=== PATIENT | female | born 1950 | race Caucasian/White ===

== ENCOUNTER 2019-04-03 14:13 | Outpatient (CLI) | payer MEDICARE, SELFPAY ==
--- NOTE | 2019-04-03 14:20 | XR_ITS ---
WS: [id number] CERVICAL SPINE 3 VIEWS HISTORY: CERVICAL STENOSIS COMPARISON: None available. C3-4 anterolisthesis by less than 2 mm. C6 and C7 are not well visualized due to overlying shoulders. Asymmetry of the lateral masses is probably due to rotation of the patient's head and neck. No fract ures are identified. C1 lateral masses are displaced to the LEFT by 5.3 mm. Mild narrowing of the disc spaces. Soft tissues are normal. XR/XR cervical spine 3V* [id number] IMPRESSION: 1. Less than 2 mm anterolisthesis of C3 and C4. The lower cervical vertebrae a re not well seen due to overlying soft tissue. 2. Asymmetry of the lateral masses. C1 lateral masses displaced to the LEFT by 5.3 mm. Probably due to rotation and scoliosis. No fractures.
--- NOTE | 2019-04-03 14:21 | XR_ITS ---
WS: [id number] LEFT SHOULDER: 2 VIEW(S) TECHNIQUE: Internal and external rotation. HISTORY: LEFT SHOULDER PAIN COMPARISON: None available. Mild narrowing of the AC joint. No fractures or dislocation. Glenohumeral and AC joints are unremarkable. Partial calcification aortic arch. XR/XR shoulder LT min 2V* [id number] IMPRESSION: Mild AC joint arthritis.
== END 2019-04-03 14:14 | disposition home or self-care (01) ==
PROVIDERS: Family Provider Family Medicine; PCP Registered Nurse; Visit Provider Registered Nurse
DX: M48.02 Spinal stenosis, cervical region (principal); M25.512 Pain in left shoulder; M19.012 Primary osteoarthritis, left shoulder
CPT/HCPCS: 72040; 73030

== ENCOUNTER 2019-04-15 08:39 | Outpatient (CLI) | payer MEDICARE, SELFPAY ==
--- NOTE | 2019-04-15 08:50 | CT_ITS ---
WS: [id number] CT CERVICAL SPINE TECHNIQUE: Noncontrast CT of the cervical spine with coronal and sagittal reformatted images. CLINICAL INFORMATION: CERVICAL STENOSIS OF SPINAL CANAL,ABNORMAL XRAY OF CERVICAL COMPARISON: None. DLP: 1689.[address] scans at [facility] use at least one of these dose optimization techniques: automat ed exposure control; mA and/or kV adjustment per patient size (includes targeted exams where dose is matched to clinical indication); or iterative reconstruction. FINDINGS: Straightening of the normal cervical lordosis. Mild spondylitic changes. Normal C1-C2 articulation. D isc space narrowing worse at C5-C6 and C6-C7. C2-C3: Small central disc protrusion. Foramen are patent. Mild central canal stenosis. C3-C4: Disc osteophyte complex with endplate ridging. Mild central canal stenosis. Mild right greater than left foraminal narrowing. Mild facet arthropathy. C4-C5: Disc osteophyte complex with endplate ridging. Mild central canal stenosis. Mild right and no significant left foraminal narrowing. Moderate facet arthropathy. C5-C6: Disc osteophyte complex with endplate ridging. Moderate left greater than right bony foraminal narrowing. Mild facet arthropathy and uncovertebral joint hypertrophy. Spinal canal is patent. C6-C7: Disc osteophyte complex with endplate ridging. Moderate left and mild right foraminal narrowin g. Mild central canal stenosis. C7-T1: No significant disc bulging. Spinal canal and foramen are patent. Visualized posterior nasopharynx: Normal. Prevertebral soft tissues: Normal. CT/CT cervical spin wo con* [id number] IMPRESSION: 1. Straightening of the normal cervical lordosis with mild spondylitic changes . 2. Mild central canal stenosis C3-C4, C4-C5, C5- C6, and C6-C7 due to disc ost eophyte complexes. 3. Multilevel moderate foraminal narrowing worse at right C3-C4, right C4-C5, bilateral C5-C6 worse in the left, and left C6-C7.
== END 2019-04-15 08:40 | disposition home or self-care (01) ==
LOC: RADWPI 08:45
PROVIDERS: Family Provider Family Medicine; PCP Registered Nurse; Visit Provider Registered Nurse
DX: M48.02 Spinal stenosis, cervical region (principal); M25.512 Pain in left shoulder; R93.7 Abnormal findings on diagnostic imaging of other parts of musculoskeletal system; M47.892 Other spondylosis, cervical region
CPT/HCPCS: 72125

== ENCOUNTER → 2019-08-28 09:53 | Outpatient (BNVA) | payer MEDICARE, SELFPAY | PROVIDERS: Family Provider Family Medicine; PCP Family Medicine; Referring Provider Registered Nurse; Visit Provider Anesthesiology Pain Medicine | DX: M54.2 Cervicalgia (principal); M54.41 Lumbago with sciatica, right side; M54.42 Lumbago with sciatica, left side; M54.9 Dorsalgia, unspecified; F31.9 Bipolar disorder, unspecified; F41.0 Panic disorder [episodic paroxysmal anxiety]; F41.9 Anxiety disorder, unspecified | CPT/HCPCS: 99204 ==

== ENCOUNTER 2020-11-08 13:02 | Emergency (ER) | payer MEDICARE, SELFPAY ==
[2020-11-08 13:27] VITALS: BP 140/79; PULSE 100; RESP 16; TEMP 37.2; O2SAT 100; BMI 29.2
--- NOTE | 2020-11-08 13:29 | ECG_ITS ---
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 Measurements Intervals [place] Rate: 92 P: 89 [place]: 141 QRS: 40 QRSD: 77 T: 75 QT: 339 QTc: 421 Interpretive Statements SINUS RHYTHM POSSIBLE RIGHT VENTRICULAR CONDUCTION DELAY [RSR (QR) IN V1/V2] Compared to ECG 02/07/2019 14:24:01 No significant changes Electronically Signed On 11-08-2020 20:10:38 CDT by Marcy Davalos M.D. [email or web address] at [facility] [email or web address]/NU/[id number] f
--- NOTE | 2020-11-08 13:29 | XR_ITS ---
WS: [id number] Exam: XR chest 1V portable [id number] Date/Time of Exam: 11/08/2020 1:39 PM Reason For Exam: wheezing Comparison 02/06/2019. Findings: The lungs are clear and fully expanded. Costophrenic angles are sharp. No infiltrates. Bronchovascula r relief appears normal. Cardiac silhouette is unremarkable. Bony elements are intact. XR/XR chest 1V portable [id number] IMPRESSION: Unremarkable chest radiograph.
--- NOTE | 2020-11-08 13:45 | PC.NURSE ---
THIS NURSE ENTERED THE PATIENT ROOM TO START AN IV AND DO A COVID SWAB AND THE PATIENT REFUSED. PATIENT STATED THAT SHE DOES NOT WANT AN IV OR TO BE TESTED BECAUSE SHE HASN'T LEFT THE HOUSE SINCE MARCH. DR. WOO NOTIFIED.
[2020-11-08 13:52] VITALS: BP 140/79; PULSE 100; TEMP 37.2
--- NOTE | 2020-11-08 14:17 | PC.NURSE ---
PATIENT REFUSED IV, THIS NURSE DID A LAB DRAW USING STRAIGHT STICK METHOD. PATIENT IN BED WITH NO FURTHER NEEDS AT THIS TIME.
[2020-11-08 14:29] VITALS: BP 142/81; PULSE 92; O2SAT 100
[2020-11-08 14:44] LABS: Troponin(5th) Baseline 10 ng/L (0-10)
--- NOTE | 2020-11-08 14:48 | W.ED.GENADLT ---
HPI - General Adult General: Chief complaint: General Medical Stated complaint: SOB, PAIN FROM WAIST DOWN BOTH LEGS Time Seen by Provider: 11/08/20 13:12 History of Present Illness: HPI narrative: Patient is a 70-year-old female with history of bipolar disease, COPD, anxiety who presents the emergency room with complaints of shortness of breath and cough x2 days. Patient lives at home by herself with her cats. Patient also reports of pain from the waist down. Denies n/v/f/cp/abdpain/dysuria/hematuria/diarrhea/hematochezia. At home, patient uses 4 L of nasal cannula for COPD. Patient uses Symbicort and Ventolin at home however over the last 2 days has reported increasing use of both without any relief of symptoms. Patient denies any recent contact with Covid positive patients. Patient denies any recent travel or surgery. No history of DVT/PE. Patient presents for worsening shortness of breath and cough. Has not had her Covid vaccine yet. Onset:2 days ago Duration:ongoing Location:home Severity:mild Review of Systems Narrative: Constitutional: No fever, no chills. HEENT: No vision changes CV: No chest pain, no palpitations PULM: +cough, +dyspnea. GI: No abdominal pain, no N/V/D. : No dysuria MSKEL: No muscle pain SKIN: No new rashes, no lesions. NEURO: No headache, no focal weakness. HEME: No visible bruises PSYCH: Normal mood [facility] PFSH: Medical History (Updated 11/08/20 @ 15:17 by Lisha Harris MD) COPD (chronic obstructive pulmonary disease) Panic anxiety syndrome Surgical History History of appendectomy History of cholecystectomy History of hysterectomy Hx of tonsillectomy Social History Smoking and tobacco status: former smoker Quit status (tobacco): has quit using tobacco Year quit tobacco: 2014 - 1PPD x 40 Years Alcohol intake: never Lives independently: Yes Household members: none Current occupational status: disabled Pets and animals: Yes Pets & animals: dog(s) History of recent travel: No Current gender identity: Female Physical Exam Narrative: EXAM NARRATIVE: Head: Atraumatic Eyes: PERRL, conjunctiva without injection ENT: Mucous membrane moist NECK: Supple, ROM intact LUNGS: Wheezing b/l in the lung tirado CV: RRR ABDOMEN: Soft, nontender in all quadrants EXTREMITY: Normal ROM SKIN: No rash or erythema NEURO: Awake and alert, no focal motor deficits PSYCH: Normal mood and affect Course Vital Signs: Vital signs: Vital Signs Temperature 98.9 F 11/08/20 13:52 Pulse Rate 88 11/08/20 15:27 Respiratory Rate 18 11/08/20 15:27 Blood Pressure 142/81 11/08/20 14:29 Pulse Oximetry 99 11/08/20 15:51 MDM - General Adult MDM Narrative: Medical decision making narrative: 70-year-old female with history of COPD on 4 L nasal cannula who presents emergency room with worsening shortness of breath and cough x2 days. On exam patient is hemodynamically stable. Wheezing noted in lung tirado bilaterally. There is no increased work of breathing. No signs of volume overload in the lower extremities. EKG showing regular sinus rhythm at HT of 92. Normal axis. No ST elevations/depressions to suggest coronary occlusion. Normal AK, QRS, QT intervals. I have offered patient a Covid swab today however patient declined. Work-up today including troponin, EKG, chest x-ray are within normal limit. Patient received DuoNeb/ prednisone in the emergency room and request to go home. I explained to patient that she still has some shortness of breath and it would be worthwhile observing her. However patient declines admission and elects to go home at this time. Patient verbalizes understanding of the risk today including acute respiratory decompensation which can lead to . In addition, patient complains of bilateral back and flank pain. Performed bedside ultrasound which did not show any enlarged or in order. I have offered CT scan for patient's waist pain however at this time, patient states that she would like to go home. Patient understands that she will need to come back to the emergency room should she experience any worsening symptoms. This present time, patient is AAOx3 fully conversant, and believe patient is making coherent decision for herself. Continues to decline Covid test today. Disposition: Discharge. I have given patient strict return precaution for any worsening respiratory symptoms including fever/chills, cough, worsening shortness of breath, any new or concerning complaints. Lab Data: Labs: Lab Results 11/08/20 11/08/2011/08/21 Range/Units 14:15 14:15 14:15 WBC 8.5 (4.0-10.0) 10^3/ uL RBC 4.36 (4.1-5.3) 10^6/u L Hgb 14.1 (11.5-15.3) g/dL Hct 44.2 (37.0-47.0) % MCV 101.4 H (81-99) fl MCH 32.3 (28.0-34.0) pg MCHC 31.9 (30.0-36.0) g/dL RDW 13.1 (12.1-15.1) % Plt Count 335 (130-400) 10^3/c mm MPV 10.0 (7.4-10.4) fL Neut % (Auto) 65.3 % Lymph % (Auto) 17.2 % [place] % (Auto) 10.4 % Eos % (Auto) 5.8 % Baso % (Auto) 0.7 % Neut # (Auto) 5.52 (1.8-7.7) 10^3/u L Lymph # (Auto) 1.5 (0.8-4.8) 10^3/u L [place] # (Auto) 0.9 (0.2-0.9) 10^3/u L Eos # (Auto) 0.5 (0.0-0.8) 10^3/u L Baso # (Auto) 0.1 (0.0-0.1) 10^3/u L Nucleated RBC % (a uto) 0 % Nucleated RBCs # 0.0 /100WBC Sodium 142 (136-145) mmol/L Potassium 4.5 (3.5-5.1) mmol/L Chloride 100 (98-107) mmol/L Carbon Dioxide 35 H (22-29) mmol/L Anion Gap 11.5 (5-19) BUN 10 (8-23) mg/dL Creatinine 0.5 (0.5-0.9) mg/dL GFR Calculation Not Reportable Glucose 104 (65-115) mg/dL Calculated Osmolal ity 293 (285-295) mOsm/k g Calcium 9.3 (8.5-10.5) mg/dL Total Bilirubin 0.6 (0.15-1.2) mg/dL AST 20 (0-32) U/L ALT 14 (0-33) U/L Alkaline Phosphata se 93 (35-105) IU/L Troponin T Baselin e 10 (0-10) ng/L NT-Pro-B Natriuret Pep 59 (0-125) pg/mL Total Protein 6.5 L (6.6-8.7) g/dL Albumin 4.2 (3.5-5.2) g/dL Globulin 2.3 (1.3-4.6) g/dL Imaging Data^: Other Imaging: Radiologist's impression: [employer] SolutionsC[place] [id number] [facility], [place] [address]MZbb ReportSigned Patient: Socorro Montes De Oca #: [id number]: 9Acct#:[id number]/Sex: 70 / FADM Date: 11/08/20Loc: ERRoom/Bed:Attending Dr: Ordering Provider/Ordering MD: Lisha Harris MD Date of Service: 11/08/20 Procedure(s): XR chest 1V portable [id number] Accession Number(s): [id number] Report Number: [id number] WS: [id number] Exam: XR chest 1V portable [id number] Date/Time of Exam: 11/08/2020 1:39 PM Reason For Exam: wheezing Comparison 02/06/2019. Findings: The lungs are clear and fully expanded. Costophrenic angles are sharp. No infiltrates. Bronchovascular relief appears normal. Cardiac silhouette is unremarkable. Bony elements are intact. XR/XR chest 1V portable [id number] IMPRESSION: Unremarkable chest radiograph. Dictated By:Salazarigned By:Salazarigned Date/Time:11/08/20 1342DD/ 1341 Discharge Plan Discharge Patient Disposition: Home Clinical Impression: COPD (chronic obstructive pulmonary disease), Cough, Shortness of breath Condition: Stable Prescriptions: No Action budesonide-formoterol [Symbicort] 160-4.5 mcg/actuation HFA aerosol inhaler 2 puff INHALATION BID RF: 0 albuterol sulfate [Ventolin HFA] 90 mcg/actuation HFA aerosol inhaler 2 puff INHALATION Q6H PRNRF: 0 levothyroxine 125 mcg capsule 125 mcg PO DAILY RF: 0 Discharge Orders: Discharge ED (Routine); Ordered 11/08/20 Ordered By: Lisha Harris Referrals: Carson Murray DO [Primary Care Provider] - Discharge Diet: Advance as tolerated Discharge Activity: Resume usual activity Patient Instructions: COPD Activity Restrictions/Additional Instructions: Come back to the emergency room if your symptoms worsen, having worsening shortness of breath, wheezing, fever or chills, or any new or concerning issues. Coding Level of Care Code ED Forensic Analyst for Ji Melgar
[2020-11-08 14:53] LABS: Alanine Aminotransferase 14 U/L (0-33); Albumin Level 4.2 g/dL (3.5-5.2); Alkaline Phosphatase 93 IU/L (35-105); Anion Gap 11.5 (5-19); Aspartate Amino Transferase 20 U/L (0-32); Blood Urea Nitrogen 10 mg/dL (8-23); Calcium 9.3 mg/dL (8.5-10.5); Carbon Dioxide 35 mmol/L (22-29); Chloride 100 mmol/L (98-107); Creatinine Clr Calc Pharmacy 54.7049; Globulin 2.3 g/dL (1.3-4.6); Glucose 104 mg/dL (65-115); NT Pro B Type Natriuretic Pept 59 pg/mL (0-125); Osmolality Calculated 293 mOsm/kg (285-295); Potassium 4.5 mmol/L (3.5-5.1); Sodium 142 mmol/L (136-145); Total Bilirubin 0.6 mg/dL (0.15-1.2); Total Protein 6.5 g/dL (6.6-8.7)
[2020-11-08 15:00] LABS: Basophils # 0.1 10^3/uL (0.0-0.1); Basophils % 0.7 %; Eosinophils # 0.5 10^3/uL (0.0-0.8); Eosinophils % 5.8 %; Hematocrit 44.2 % (37.0-47.0); Hemoglobin 14.1 g/dL (11.5-15.3); Lymphocytes # 1.5 10^3/uL (0.8-4.8); Lymphocytes % 17.2 %; Mean Corpuscular HGB Conc 31.9 g/dL (30.0-36.0); Mean Corpuscular Hemoglobin 32.3 pg (28.0-34.0); Mean Corpuscular Volume 101.4 fl (81-99); Monocytes # 0.9 10^3/uL (0.2-0.9); Monocytes % 10.4 %; Neutrophils # 5.52 10^3/uL (1.8-7.7); Neutrophils % 65.3 %; Nucleated Red Blood Cells % 0 %; Platelet Count 335 10^3/cmm (130-400); Red Blood Count 4.36 10^6/uL (4.1-5.3); Red Cell Distribution Width 13.1 % (12.1-15.1); White Blood Count 8.5 10^3/uL (4.0-10.0)
[2020-11-08] MEDS: predniSONE 20 mg Tablet 60 MG PO (15:15)
[2020-11-08] MEDS: ipratropium-albuterol 3 mL Neb 6 ML INHALATION (15:25)
[2020-11-08 15:27] VITALS: PULSE 88; RESP 18; O2SAT 100
[2020-11-08 15:51] VITALS: O2SAT 99
--- NOTE | 2020-11-08 16:00 | PC.NURSE ---
PATIENT WAS SEEN TODAY BY DR. WOO. PATIENT WAS GIVEN SEVERAL TREATMENT OPTIONS BUT REFUSED MULTIPLE ORDERS GIVEN. PATIENT REFUSED IV START, COVID SWAB, AND CT SCAN. PATIENT IS OF SOUND MIND AND WISHED TO GO HOME, WHERE SHE LIVES ALONE, INSTEAD OF SEEKING FURTHER TREATMENT FOR THE PAIN IN HER LEGS. PATIENT AMBULATED TO EXIT IN NO APPARENT DISTRESS WITH O2 NC ON TO TAXI.
== END 2020-11-08 15:52 | disposition home or self-care (01) ==
PROVIDERS: Emergency Provider Emergency Medicine; PCP Family Medicine
DX: J44.9 Chronic obstructive pulmonary disease, unspecified (principal); Z87.891 Personal history of nicotine dependence; Z99.81 Dependence on supplemental oxygen
CPT/HCPCS: 71045; 80053; 83880; 84484; 85025; 93005; 94640; 99283; J7512

== ENCOUNTER 2020-12-30 07:56 | Emergency (ER) | payer MEDICARE, SELFPAY ==
--- NOTE | 2020-12-30 08:01 | XR_ITS ---
WS: [id number] XR chest 1V portable [id number] REASON FOR EXAM: dyspnea FINDINGS: Chest unchanged compared to 11/08/2020. The heart and mediastinum are within normal limits. Calcified granulomatous disease in both hemithoraces. No active pulmonary parenchymal pleural disease. Mild degenerative changes in the mid and lower thoracic spine. XR/XR chest 1V portable [id number] IMPRESSION: No acute chest abnormality.
[2020-12-30 08:02] VITALS: BP 168/116; PULSE 110; RESP 21; TEMP 36.9; O2SAT 98; BMI 29.2
--- NOTE | 2020-12-30 08:03 | W.ED.SOB ---
HPI - SOB/Dyspnea General: Chief Complaint: Shortness of Breath/Dyspnea Stated Complaint: SOB, ANXIOUS Time Seen by Provider: 12/30/20 08:00 Source: patient and EMS Mode of arrival: EMS Limitations: other (dyspnea) History of Present Illness: HPI Narrative: Patient woke up this morning with increased shortness of breath and wheezing. Patient states she wears nasal cannula at 4 L/min normally. She states she had increasing wheezing she did take Ventolin inhaler this morning. According to paramedics her oxygen saturation was 96% on home O2. Patient refused IV prior to arrival. No meds were given by EMS prior to arrival. Possible history includes COPD. She is allergic to Zyprexa. She claims she quit smoking in 2014. MD elicited complaint: shortness of breath and cough Pertinent past history: COPD and asthma Onset (ago): hour(s) (1) Context: anxiety Timing: constant Severity: moderate Exacerbating factors: nothing Relieving factors: nothing Known history of: COPD and asthma Associated symptoms: Reports cough; Deny abdominal pain, chest congestion, chest pain, diaphoresis, dizziness, fever(s) or palpitations Treatment prior to arrival: oxygen Related Data: Home oxygen amount: 4 liters Review of Systems Const: Denies: fever(s), fatigue or diaphoresis Eyes: Denies: change in vision ENMT: Denies: throat pain Card: Denies: chest pain or palpitations Resp: Reports: dyspnea, non-productive cough and wheezing; Denies: chest congestion GI: Denies: abdominal pain : Denies: flank pain Musc: Denies: neck pain or back pain Skin/Breast: Denies: rash or pruritus Neuro: Denies: dizziness Psych: Reports: anxiety Arnav/Lymph: Denies: enlarged lymph nodes PFSH ED PFSH: Medical History (Updated 12/30/20 @ 08:07 by Marco A Christopher MD) COPD (chronic obstructive pulmonary disease) Panic anxiety syndrome Surgical History History of appendectomy History of cholecystectomy History of hysterectomy Hx of tonsillectomy Social History Smoking and tobacco status: former smoker Quit status (tobacco): has quit using tobacco Year quit tobacco: 2015 - 1PPD x 40 Years Alcohol intake: never Lives independently: Yes Household members: none Current occupational status: disabled Pets and animals: Yes Pets & animals: dog(s) History of recent travel: No Current gender identity: Female Physical Exam Const: COMMON NORMALS: no acute distress, patient oriented x3, no limitations and well nourished EXAM LIMITATIONS: no altered mental status GENERAL APPEARANCE: cooperative and anxious HENMT: COMMON NORMALS: normocephalic and atraumatic HEAD & SCALP: normocephalic and atraumatic FACE & SINUS: normal facial exam Eye: COMMON NORMALS: EOMs intact bilaterally Neck/C-Spine: COMMON NORMALS: full ROM, no lymphadenopathy, supple, no meningeal signs and no JVD GENERAL: Yes normal visual inspection Lymph: LYMPHATIC: no lymphadenopathy noted Chest: COMMONS NORMALS: normal inspection of the chest and normal palpation of entire chest wall CHEST: No Ecchymosis present and No rash Resp: EFFORT & INSPECTION: Yes symmetric chest movement, Yes tachypneic and Yes respiratory distress AUSCULTATION: wheezes Cardio: COMMON NORMALS: no JVD, regular rate, regular rhythm and Peripheral pulses 2+ throughout JUGULAR VENOUS DISTENTION: no JVD RATE: regular rate RHYTHM: regular rhythm PERIPHERAL PULSES: Peripheral pulses 2+ throughout GI: COMMON NORMALS: Normal to inspection, nondistended, normoactive bowel sounds present and non-tender : COMMON NORMALS: Yes no CVA tenderness BLADDER/KIDNEY EXAM: Yes no CVA tenderness Back/Pelvis: COMMON NORMALS: no CVA tenderness Extremity: COMMON NORMALS: normal to inspection, full ROM and capillary refill normal Neuro: COMMON NORMALS: patient oriented x3, CN's II-XII intact bilaterally, no focal motor deficits and no sensory deficits noted MENINGEAL SIGNS: Yes no meningeal signs Psych: COMMON NORMALS: mental status grossly normal and Normal thought process present THOUGHT PROCESS: Normal thought process present Skin: COMMON NORMALS: no rashes or lesions noted and no wounds GENERAL SKIN EXAM: no rashes or lesions noted Course Vital Signs: Vital signs: Vital Signs Temperature 98.5 F 12/30/20 08:02 Pulse Rate 107 H 12/30/20 08:21 Respiratory Rate 19 H 12/30/20 08:20 Blood Pressure 156/107 12/30/20 08:20 Pulse Oximetry 98 12/30/20 08:20 MDM - SOB/Dyspnea MDM Narrative: Medical decision making narrative: 0845: Patient much improved. Patient has a rare expiratory wheeze bilaterally. Her oxygen saturation is 98% on 2 L by nasal cannula. Will give 1 more DuoNeb prior to discharge. Imaging Data^: CXR: Attestation: I personally reviewed and interpreted this imaging study as follows: My impression: Atelectasis and left base. Consistent with COPD appearance. No change from previous chest x-ray in October. Discharge Plan Discharge Clinical Impression: Acute exacerbation of chronic obstructive airways disease Condition: Stable Prescriptions: No Action budesonide-formoterol [Symbicort] 160-4.5 mcg/actuation HFA aerosol inhaler 2 puff INHALATION BID RF: 0 albuterol sulfate [Ventolin HFA] 90 mcg/actuation HFA aerosol inhaler 2 puff INHALATION Q6H PRNRF: 0 levothyroxine 125 mcg capsule 125 mcg PO DAILY RF: 0 Referrals: Carson Murray DO [Primary Care Provider] - Coding Level of Care Code ED Civil Engineering Professional for Chg Fwd Exam Comprehensive
[2020-12-30] MEDS: ipratropium-albuterol 3 mL Neb INHALATION ×2 (08:14→08:56)
[2020-12-30 08:16] VITALS: PULSE 111; RESP 22; O2SAT 99
[2020-12-30 08:20] VITALS: BP 156/107; PULSE 106; RESP 19; O2SAT 98
[2020-12-30 08:21] VITALS: PULSE 107
[2020-12-30 08:56] VITALS: PULSE 107; RESP 22; O2SAT 99
[2020-12-30 08:58] VITALS: PULSE 106
== END 2020-12-30 09:31 | disposition home or self-care (01) ==
PROVIDERS: Emergency Provider Family Medicine; PCP Family Medicine
DX: J44.1 Chronic obstructive pulmonary disease with (acute) exacerbation (principal); Z87.891 Personal history of nicotine dependence
CPT/HCPCS: 71045; 94640; 96374; 99284; J2930

== ENCOUNTER 2021-09-01 08:19 | Emergency (ER) | payer MEDICARE, SELFPAY ==
--- NOTE | 2021-09-01 08:25 | ECG_ITS ---
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 Measurements Intervals [place] Rate: 88 P: 84 IN: 146 QRS: 81 QRSD: 79 T: 83 QT: 372 QTc: 451 Interpretive Statements SINUS RHYTHM POSSIBLE RIGHT VENTRICULAR CONDUCTION DELAY [RSR (QR) IN V1/V2] Compared to ECG 11/08/2020 13:47:07 No significant changes Electronically Signed On 09-02-2021 5:44:48 CDT by Giorgi Justin M.D. [id number]
--- NOTE | 2021-09-01 08:25 | XR_ITS ---
WS: [id number] Portable AP upright chest, 09/01/2021 Clinical Data: sob Comparison: Portable chest, 12/30/2020. Findings: No nodules, masses or effusions are seen. The heart is normal. The pulmonary vascularity is not increased. No pneumonia or pneumothorax is seen. The aortic arch shows mild calcification. Monit or leads are on the chest wall. XR/XR chest 1V portable [id number] Impression: Atherosclerosis.
--- NOTE | 2021-09-01 08:29 | W.ED.SOB ---
HPI - SOB/Dyspnea General: Chief Complaint: Shortness of Breath/Dyspnea Stated Complaint: SOB Time Seen by Provider: 09/01/21 08:20 History of Present Illness: HPI Narrative: 71-year-old female presents with shortness of breath. Patient has chronic shortness of breath/COPD. She reports that its been getting worse for at least 3 to 4 weeks. Patient presents today because it seemed like it was worse when she ambulated to the restroom. Patient is on home oxygen. Patient reports that she has not seen her doctor in at least a year. EMS reports that she is very wheezy and tight and they gave her an albuterol in route and saw significant improvement. Patient denies any fever, chills. She does have some minor chest tightness. Associated symptoms: Reports chest pain (Tightness); Deny abdominal pain, dizziness, fever(s), lightheadedness, nausea, syncope or vomiting Review of Systems Const: Denies: fever(s) or chills Eyes: Denies: change in vision ENMT: Denies: throat pain Card: Reports: chest pain (Tightness); Denies: lightheadedness or syncope Resp: Reports: dyspnea, non-productive cough and wheezing GI: Denies: abdominal pain, nausea or vomiting : Denies: flank pain or difficulty voiding Skin/Breast: Denies: rash Neuro: Denies: headache(s) or dizziness Psych: Denies: anxiety or depression [facility] ED PFSH: Medical History (Updated 01/07/21 @ 00:01 by ) COPD (chronic obstructive pulmonary disease) Panic anxiety syndrome Surgical History History of appendectomy History of cholecystectomy History of hysterectomy Hx of tonsillectomy Social History Smoking and tobacco status: former smoker Quit status (tobacco): has quit using tobacco Year quit tobacco: 2014 - 1PPD x 40 Years Alcohol intake: never Lives independently: Yes Household members: none Current occupational status: disabled Pets and animals: Yes Pets & animals: dog(s) History of recent travel: No Current gender identity: Female Physical Exam Const: COMMON NORMALS: no acute distress and patient oriented x3 HENMT: COMMON NORMALS: not normocephalic and head/scalp not atraumatic HEAD & SCALP: not normocephalic and not atraumatic Eye: GENERAL EYE: appearance normal, both eyes and all related structures Neck/C-Spine: COMMON NORMALS: full ROM and supple Resp: EFFORT & INSPECTION: Yes able to speak in complete sentences and No respiratory distress AUSCULTATION: wheezes (Diffuse) Cardio: COMMON NORMALS: regular rhythm RATE: tachycardic RHYTHM: regular rhythm GI: COMMON NORMALS: Soft to palpation PALPATION: Yes Soft to palpation, No Tenderness to palpation present (GI) and No Guarding due to palpation present (GI) Extremity: COMMON NORMALS: normal to inspection and capillary refill normal Neuro: COMMON NORMALS: patient oriented x3, CN's II-XII intact bilaterally and no focal motor deficits Psych: COMMON NORMALS: mental status grossly normal and cooperative Skin: COMMON NORMALS: no rashes or lesions noted GENERAL SKIN EXAM: no rashes or lesions noted Course Vital Signs: Vital signs: Vital Signs Pulse Rate 79 09/01/21 09:52 Respiratory Rate 17 09/01/21 09:52 Blood Pressure 161/78 09/01/21 09:52 Pulse Oximetry 94 09/01/21 10:06 MDM - SOB/Dyspnea Medical Decision Making Patient with COPD exacerbation. Patient does not follow with a primary care provider on a consistent basis and has uncontrolled COPD. Patient complained about unable to ambulate due to shortness of breath. Respiratory ambulated patient and her O2 saturations while ambulating was 94% on her baseline home oxygen. Patient's baseline home oxygen of 6 L. I had her turn down to 4 L where she remained in the upper 90s throughout her stay. She had some mild wheezing that improved with her DuoNeb. Started on azithromycin and prednisone. Patient stable and discharged home Lab Data : 09/01/21 08:31 09/01/21 08:31 Labs/Radiology: Radiology Impressions Chest X-Ray 09/01/21 08:25 Impression: Atherosclerosis. Laboratory Results WBC 7.2 10^3/uL (4.0-10.0) 09/01/21 08:31 RBC 4.18 10^6/uL (4.1-5.3) 09/01/21 08:31 Hgb 13.3 g/dL (11.5-15.3) 09/01/21 08:31 Hct 40.6 % (37.0-47.0) 09/01/21 08:31 MCV 97.1 fl (81-99) 09/01/21 08:31 MCH 31.8 pg (28.0-34.0) 09/01/21 08:31 MCHC 32.8 g/dL (30.0-36.0) 09/01/21 08:31 RDW 13.6 % (12.1-15.1) 09/01/21 08:31 Plt Count 335 10^3/cmm (130-400) 09/01/21 08:31 MPV 10.1 fL (7.4-10.4) 09/01/21 08:31 Neut % (Auto) 50.9 % 09/01/21 08:31 Lymph % (Auto) 25.1 % 09/01/21 08:31 [place] % (Auto) 13.3 % 09/01/21 08:31 Eos % (Auto) 9.6 % 09/01/21 08:31 Baso % (Auto) 0.8 % 09/01/21 08:31 Neut # (Auto) 3.64 10^3/uL (1.8-7.7) 09/01/21 08:31 Lymph # (Auto) 1.8 10^3/uL (0.8-4.8) 09/01/21 08:31 [place] # (Auto) 1.0 10^3/uL (0.2-0.9) H 09/01/21 08:31 Eos # (Auto) 0.7 10^3/uL (0.0-0.8) 09/01/21 08:31 Baso # (Auto) 0.1 10^3/uL (0.0-0.1) 09/01/21 08:31 Nucleated RBC % (auto) 0 % 09/01/21 08: Nucleated RBCs # 0.0 /100WBC 09/01/21 08:31 Sodium 141 mmol/L (136-145) 09/01/21 08:31 Potassium 4.1 mmol/L (3.5-5.1) 09/01/21 08:31 Chloride 99 mmol/L (98-107) 09/01/21 08:31 Carbon Dioxide 34 mmol/L (22-29) H 09/01/21 08:31 Anion Gap 12.1 (5-19) 09/01/21 08:31 BUN 14 mg/dL (8-23) 09/01/21 08:31 Creatinine 0.6 mg/dL (0.5-0.9) 09/01/21 08:31 GFR Calculation Not Reportable 09/01/21 08:31 Glucose 109 mg/dL (65-115) 09/01/21 08:31 Calculated Osmolality 293 mOsm/kg (285-295) 09/01/21 08:31 Calcium 9.5 mg/dL (8.5-10.5) 09/01/21 08:31 Magnesium 2.3 mg/dL (1.7-2.3) 09/01/21 08:31 Total Bilirubin 0.6 mg/dL (0.15-1.2) 09/01/21 08:31 AST 26 U/L (0-32) 09/01/21 08:31 ALT 18 U/L (0-33) 09/01/21 08:31 Alkaline Phosphatase 68 IU/L (35-105) 09/01/21 08:31 Total Protein 7.2 g/dL (6.6-8.7) 09/01/21 08:31 Albumin 4.5 g/dL (3.5-5.2) 09/01/21 08:31 Globulin 2.7 g/dL (1.3-4.6) 09/01/21 08:31 Discharge Plan Discharge Condition: Stable Prescriptions: No Action budesonide-formoterol [Symbicort] 160-4.5 mcg/actuation HFA aerosol inhaler 2 puff INHALATION BID 0RF albuterol sulfate [Ventolin HFA] 90 mcg/actuation HFA aerosol inhaler 2 puff INHALATION Q6H PRN0RF levothyroxine 125 mcg capsule 125 mcg PO DAILY 0RF prednisone 20 mg tablet 40 mg PO DAILY 3 Days Qty: 6 1RF Rx Instructions: for inflammation Referrals: Carson Murray DO [Primary Care Provider] - Coding Level of Care Code ED Senior Structural Engineer for Chg Fwd Exam Comprehensive
[2021-09-01] MEDS: ipratropium-albuterol 3 mL Neb INHALATION (08:43)
[2021-09-01 08:45] VITALS: BP 144/105; PULSE 87; PULSE 88; RESP 18; O2SAT 97; O2SAT 99; BMI 29.2
[2021-09-01 08:45] LABS: Basophils # 0.1 10^3/uL (0.0-0.1); Basophils % 0.8 %; Eosinophils # 0.7 10^3/uL (0.0-0.8); Eosinophils % 9.6 %; Hematocrit 40.6 % (37.0-47.0); Hemoglobin 13.3 g/dL (11.5-15.3); Lymphocytes # 1.8 10^3/uL (0.8-4.8); Lymphocytes % 25.1 %; Mean Corpuscular HGB Conc 32.8 g/dL (30.0-36.0); Mean Corpuscular Hemoglobin 31.8 pg (28.0-34.0); Mean Corpuscular Volume 97.1 fl (81-99); Mean Platelet Volume 10.1 fL (7.4-10.4); Monocytes % 13.3 %; Neutrophils # 3.64 10^3/uL (1.8-7.7); Neutrophils % 50.9 %; Nucleated Red Blood Cells % 0 %; Platelet Count 335 10^3/cmm (130-400); Red Blood Count 4.18 10^6/uL (4.1-5.3); Red Cell Distribution Width 13.6 % (12.1-15.1); White Blood Count 7.2 10^3/uL (4.0-10.0)
[2021-09-01 08:50] VITALS: PULSE 90
[2021-09-01 09:00] LABS: Alanine Aminotransferase 18 U/L (0-33); Albumin Level 4.5 g/dL (3.5-5.2); Alkaline Phosphatase 68 IU/L (35-105); Anion Gap 12.1 (5-19); Aspartate Amino Transferase 26 U/L (0-32); Blood Urea Nitrogen 14 mg/dL (8-23); Calcium 9.5 mg/dL (8.5-10.5); Carbon Dioxide 34 mmol/L (22-29); Chloride 99 mmol/L (98-107); Globulin 2.7 g/dL (1.3-4.6); Glucose 109 mg/dL (65-115); Magnesium 2.3 mg/dL (1.7-2.3); Osmolality Calculated 293 mOsm/kg (285-295); Potassium 4.1 mmol/L (3.5-5.1); Sodium 141 mmol/L (136-145); Total Bilirubin 0.6 mg/dL (0.15-1.2); Total Protein 7.2 g/dL (6.6-8.7)
[2021-09-01 09:52] VITALS: BP 161/78; PULSE 79; RESP 17; O2SAT 98
--- NOTE | 2021-09-01 09:54 | PC.NURSE ---
Pt placed on continual cardiac, BP, and SpO2 monitoring upon arrival into room.
[2021-09-01 10:06] VITALS: O2SAT 94
[2021-09-01 12:00] VITALS: BP 143/69; PULSE 85; RESP 20; O2SAT 97
== END 2021-09-01 11:09 | disposition home or self-care (01) ==
PROVIDERS: Emergency Provider Student in an Organized Health Care Education/Training Program; PCP Family Medicine
DX: J44.1 Chronic obstructive pulmonary disease with (acute) exacerbation (principal)
CPT/HCPCS: 71045; 80053; 83735; 85025; 93005; 94640; 96374; 99285; J2930

== ENCOUNTER 2021-11-29 06:01 | Emergency (ER) | payer MEDICARE, SELFPAY ==
[2021-11-29 06:04] VITALS: BP 140/75; PULSE 99; RESP 23; TEMP 37.7; O2SAT 98; BMI 29.2
--- NOTE | 2021-11-29 06:04 | XR_ITS ---
WS: [id number] XR chest 1V portable [id number] REASON FOR EXAM: dyspnea/cough FINDINGS: Compared to the previous examination of 09/01/2021 there are reticular opacities in the lower right eric ng field that appear more prominent than on the previous examination. Similar findings in the left lo wer lung field. No other interval change or new finding. XR/XR chest 1V portable [id number] IMPRESSION: Findings compatible with subacute pneumonitis.
[2021-11-29 06:08] VITALS: PULSE 99; RESP 18; O2SAT 98
--- NOTE | 2021-11-29 06:10 | W.ED.SOB ---
HPI - SOB/Dyspnea General: Chief Complaint: Shortness of Breath/Dyspnea Stated Complaint: Respiratory Distress Time Seen by Provider: 11/29/21 06:04 Source: patient History of Present Illness: HPI Narrative: 71-year-old female presents emergency room complaining of shortness of breath that began in the night. She normally wears 3 and half to 4 L of oxygen. She is currently satting in the upper 90 percentile 9. She denies any recent fever sweats chills or productive cough. EMS reported she was tachypneic when they first responded to the scene. She improved significantly after 2 breathing treatments. Associated symptoms: Deny abdominal pain, chest pain, fever(s), nausea, orthopnea or vomiting Review of Systems Const: Denies: fever(s), chills, body aches, change in appetite, fatigue or malaise ENMT: Denies: throat pain, ear or mastoid pain, nasal discharge or nasal congestion Card: Denies: chest pain, edema, dyspnea on exertion or orthopnea Resp: Denies: dyspnea, productive cough or non-productive cough GI: Denies: abdominal pain, nausea, vomiting, hematemesis, coffee ground emesis, diarrhea, constipation, bloating, hematochezia or melena : Denies: flank pain, difficulty voiding, dysuria, urinary frequency or urinary urgency Skin/Breast: Denies: rash or pruritus [facility] ED PFSH: Medical History (Updated 11/29/21 @ 07:52 by Alex Romero DO) COPD (chronic obstructive pulmonary disease) Panic anxiety syndrome Surgical History History of appendectomy History of cholecystectomy History of hysterectomy Hx of tonsillectomy Social History Smoking and tobacco status: former smoker Quit status (tobacco): has quit using tobacco Year quit tobacco: 2015 - 1PPD x 40 Years Alcohol intake: never Lives independently: Yes Household members: none Current occupational status: disabled Pets and animals: Yes Pets & animals: dog(s) History of recent travel: No Current gender identity: Female Physical Exam Const: COMMON NORMALS: no acute distress GENERAL APPEARANCE: cooperative and comfortable ORIENTATION/CONSCIOUSNESS: Yes awake, Yes oriented to person, Yes oriented to place and Yes oriented to time HENMT: COMMON NORMALS: normocephalic, atraumatic and hearing grossly normal bilaterally HEAD & SCALP: normocephalic and atraumatic Resp: AUSCULTATION: rhonchi and wheezes Cardio: COMMON NORMALS: regular rate, regular rhythm and No murmurs present (Cardio) RATE: regular rate RHYTHM: regular rhythm GI: COMMON NORMALS: Soft to palpation and No hepatosplenomegaly present AUSCULTATION: Yes normoactive bowel sounds PALPATION: Yes Soft to palpation, No Tenderness to palpation present (GI), No Guarding due to palpation present (GI) and Yes No hepatosplenomegaly present Extremity: COMMON NORMALS: normal to inspection, capillary refill normal, no clubbing, cyanosis or edema, no calf tenderness and no pedal edema Neuro: SENSORIUM/ORIENTATION: Yes oriented to person, Yes oriented to place and Yes oriented to time Skin: COMMON NORMALS: no rashes or lesions noted GENERAL SKIN EXAM: no rashes or lesions noted Course Vital Signs: Vital signs: Vital Signs Temperature 99.9 F H 11/29/21 06:04 Pulse Rate 96 11/29/21 06:12 Respiratory Rate 18 11/29/21 06:08 Blood Pressure 140/75 11/29/21 06:04 Pulse Oximetry 98 11/29/21 06:08 Oxygen Delivery Me thod 11/29/21 06:08 Oxygen Flow Rate 4 11/29/21 06:08 MDM - SOB/Dyspnea Medical Decision Making Exacerbation COPD is doing better after the nebulizer. Discharged home with steroid taper questionable pneumonitis at the base of the right lung however sits marker markedly improved with exam that may just be atelectasis from positioning because of her body habitus in any event we will put her on doxycycline she denies any productive cough at this point. Follow-up with her primary care doctor return if has worsening problems. Medical Records I reviewed the patient's medical records. Lab Data I reviewed the patient's lab results. : 11/29/21 06:14 11/29/21 06:14 Labs/Radiology: Radiology Impressions Chest X-Ray 11/29/21 06:04 IMPRESSION: Findings compatible with subacute pneumonitis. Laboratory Results WBC 8.0 10^3/uL (4.0-10.0) 11/29/21 06:14 RBC 3.73 10^6/uL (4.1-5.3) L 11/29/21 06:14 Hgb 11.9 g/dL (11.5-15.3) 11/29/21 06:14 Hct 37.8 % (37.0-47.0) 11/29/21 06:14 MCV 101.3 fl (81-99) H 11/29/21 06:14 MCH 31.9 pg (28.0-34.0) 11/29/21 06:14 MCHC 31.5 g/dL (30.0-36.0) 11/29/21 06:14 RDW 13.9 % (12.1-15.1) 11/29/21 06:14 Plt Count 289 10^3/cmm (130-400) 11/29/21 06:14 MPV 10.2 fL (7.4-10.4) 11/29/21 06:14 Neut % (Auto) 68.5 % 11/29/21 06:14 Lymph % (Auto) 14.8 % 11/29/21 06:14 [place] % (Auto) 9.6 % 11/29/21 06:14 Eos % (Auto) 6.1 % 11/29/21 06:14 Baso % (Auto) 0.6 % 11/29/21 06:14 Neut # (Auto) 5.47 10^3/uL (1.8-7.7) 11/29/21 06:14 Lymph # (Auto) 1.2 10^3/uL (0.8-4.8) 11/29/21 06:14 [place] # (Auto) 0.8 10^3/uL (0.2-0.9) 11/29/21 06:14 Eos # (Auto) 0.5 10^3/uL (0.0-0.8) 11/29/21 06:14 Baso # (Auto) 0.1 10^3/uL (0.0-0.1) 11/29/21 06:14 Nucleated RBC % (auto) 0 % 11/29/21 06:14 Nucleated RBCs # 0.0 /100WBC 11/29/21 06:14 Sodium 137 mmol/L (136-145) 11/29/21 06:14 Potassium 4.0 mmol/L (3.5-5.1) 11/29/21 06:14 Chloride 99 mmol/L (98-107) 11/29/21 06:14 Carbon Dioxide 29 mmol/L (22-29) 11/29/21 06:14 Anion Gap 13.0 (5-19) 11/29/21 06:14 BUN 13 mg/dL (8-23) 11/29/21 06:14 Creatinine 0.6 mg/dL (0.5-0.9) 11/29/21 06:14 GFR Calculation Not Reportable 11/29/21 06:14 Glucose 119 mg/dL (65-115) H 11/29/21 06:14 Calculated Osmolality 285 mOsm/kg (285-295) 11/29/21 06:14 Calcium 8.9 mg/dL (8.5-10.5) 11/29/21 06:14 Total Bilirubin 0.7 mg/dL (0.15-1.2) 11/29/21 06:14 AST 22 U/L (0-32) 11/29/21 06:14 ALT 13 U/L (0-33) 11/29/21 06:14 Alkaline Phosphatase 59 U/L (35-105) 11/29/21 06:14 Total Protein 6.6 g/dL (6.6-8.7) 11/29/21 06:14 Albumin 3.9 g/dL (3.5-5.2) 11/29/21 06:14 Globulin 2.7 g/dL (1.3-4.6) 11/29/21 06:14 Discharge Plan Discharge Patient Disposition: Home Clinical Impression: Acute exacerbation of chronic obstructive airways disease Condition: Stable Prescriptions: New doxycycline hyclate 100 mg capsule 100 mg PO BID 10 Days Qty: 20 0RF prednisone 20 mg tablet 20 mg PO TID Qty: 15 0RF Rx Instructions: 1 p.o. 3 times daily x3 days, 1 p.o. twice daily x2 days, 1 p.o. daily x2 days ipratropium-albuterol 0.5 mg-3 mg(2.5 mg base)/3 mL solution for nebulization 3 ml inhalation Q4H PRN (Reason: shortness of breath or wheezing) Qty: 180 0RF Rx Instructions: until breathing returns to target peak flow/parameters Discontinued prednisone 20 mg tablet 40 mg PO DAILY 3 Days Qty: 6 1RF Rx Instructions: for inflammation No Action budesonide-formoterol [Symbicort] 160-4.5 mcg/actuation HFA aerosol inhaler 2 puff INHALATION BID albuterol sulfate [Ventolin HFA] 90 mcg/actuation HFA aerosol inhaler 2 puff INHALATION Q6H PRN levothyroxine 125 mcg capsule 125 mcg PO DAILY azithromycin 250 mg tablet See Rx Instructions .ROUTE .COMPLEX Qty: 6 0RF Rx Instructions: For 250 mg dose pack: take 500 mg today (day 1), then 250 mg for 4 days (days 2-5) Discharge Orders: Discharge ED (Routine); Ordered 11/29/21 Ordered By: Alex Romero Referrals: Carson Murray DO [Primary Care Provider] - Discharge Diet: Usual diet Discharge Activity: Increase activity as tolerated Patient Instructions: Opioid Safety Coding Level of Care Code ED Transportation Specialist for Ji Fwd Exam Detailed
[2021-11-29 06:12] VITALS: PULSE 96
[2021-11-29] MEDS: ipratropium-albuterol 3 mL Neb INHALATION (06:12)
[2021-11-29 06:31] LABS: Basophils # 0.1 10^3/uL (0.0-0.1); Basophils % 0.6 %; Eosinophils # 0.5 10^3/uL (0.0-0.8); Eosinophils % 6.1 %; Hematocrit 37.8 % (37.0-47.0); Hemoglobin 11.9 g/dL (11.5-15.3); Lymphocytes # 1.2 10^3/uL (0.8-4.8); Lymphocytes % 14.8 %; Mean Corpuscular HGB Conc 31.5 g/dL (30.0-36.0); Mean Corpuscular Hemoglobin 31.9 pg (28.0-34.0); Mean Corpuscular Volume 101.3 fl (81-99); Mean Platelet Volume 10.2 fL (7.4-10.4); Monocytes # 0.8 10^3/uL (0.2-0.9); Monocytes % 9.6 %; Neutrophils # 5.47 10^3/uL (1.8-7.7); Neutrophils % 68.5 %; Nucleated Red Blood Cells % 0 %; Platelet Count 289 10^3/cmm (130-400); Red Blood Count 3.73 10^6/uL (4.1-5.3); Red Cell Distribution Width 13.9 % (12.1-15.1)
[2021-11-29 06:49] LABS: Alanine Aminotransferase 13 U/L (0-33); Albumin Level 3.9 g/dL (3.5-5.2); Alkaline Phosphatase 59 U/L (35-105); Aspartate Amino Transferase 22 U/L (0-32); Blood Urea Nitrogen 13 mg/dL (8-23); Calcium 8.9 mg/dL (8.5-10.5); Carbon Dioxide 29 mmol/L (22-29); Chloride 99 mmol/L (98-107); Globulin 2.7 g/dL (1.3-4.6); Glucose 119 mg/dL (65-115); Osmolality Calculated 285 mOsm/kg (285-295); Sodium 137 mmol/L (136-145); Total Bilirubin 0.7 mg/dL (0.15-1.2); Total Protein 6.6 g/dL (6.6-8.7)
== END 2021-11-29 08:58 | disposition home or self-care (01) ==
PROVIDERS: Emergency Provider Family Medicine; PCP Family Medicine
DX: J44.1 Chronic obstructive pulmonary disease with (acute) exacerbation (principal); Z87.891 Personal history of nicotine dependence
CPT/HCPCS: 71045; 80053; 85025; 94640; 96374; 99284; J2930

== ENCOUNTER 2021-12-31 16:13 | Emergency (ER) | payer MEDICARE, SELFPAY ==
[2021-12-31 16:08] VITALS: BP 110/77; PULSE 106; O2SAT 94; BMI 31.4
--- NOTE | 2021-12-31 16:28 | W.ED.GENADLT ---
HPI - General Adult General: Chief complaint: Urogenital-Female Stated complaint: urinary retention History of Present Illness: Patient is 71-year-old female with chronic indwelling Hammer, COPD chronically on 3 L oxygen, currently on hospice presenting to emergency for concerns of urinary catheter issue. Patient recently had a urinary odor change earlier today. Hospice staff noticed that it was not draining and sent patient to the emergency room. On arrival, patient has no complaints of abdominal pain, nausea/vomiting, flank pain, fever/chills, chest pain, shortness of palpitation or lightheadedness. Patient tells me that her catheter has been working. She has no other focal complaints at this time. Onset:earlier today Duration:ongoing Location:home Severity:mild Associated symptoms: Deny chest pain, dyspnea, nausea, rash, palpitations or vomiting Review of Systems Const: Denies: fever(s) or chills Eyes: Denies: change in vision ENMT: Denies: mouth pain Card: Denies: chest pain or palpitations Resp: Denies: dyspnea or non-productive cough GI: Reports: other (+Decreased po); Denies: abdominal pain, nausea, vomiting or diarrhea : Reports: other (+new urinary catheter malfunction); Denies: dysuria Musc: Denies: extremity pain Skin/Breast: Denies: rash or new lesions Neuro: Denies: weakness in extremities Psych: Reports: other (Normal mood) [place]/Lymph: Denies: easy bruising PFS ED PFSH: Medical History (Updated 12/31/21 @ 16:33 by Lisha Harris MD) COPD (chronic obstructive pulmonary disease) Panic anxiety syndrome Surgical History History of appendectomy History of cholecystectomy History of hysterectomy Hx of tonsillectomy Social History Smoking and tobacco status: former smoker Quit status (tobacco): has quit using tobacco Year quit tobacco: 2014 - 1PPD x 40 Years Alcohol intake: never Lives independently: Yes Household members: none Current occupational status: disabled Pets and animals: Yes Pets & animals: dog(s) History of recent travel: No Current gender identity: Female Physical Exam Const: COMMON NORMALS: alert HENMT: COMMON NORMALS: atraumatic HEAD & SCALP: atraumatic MOUTH: moist mucous membranes not abnormal Eye: COMMON NORMALS: EOMs intact bilaterally and conjunctivae normal CONJUNCTIVA: Yes conjunctivae normal Neck/C-Spine: COMMON NORMALS: full ROM and supple Resp: COMMON NORMALS: normal respiratory effort and clear to auscultation bilaterally AUSCULTATION: clear to auscultation bilaterally Cardio: COMMON NORMALS: regular rate RATE: regular rate GI: COMMON NORMALS: Soft to palpation and non-tender PALPATION: Yes Soft to palpation : OTHER: 16Fr indwelling hammer in place Extremity: COMMON NORMALS: full ROM Neuro: SENSORIUM/ORIENTATION: Yes alert MOTOR EXAM: No Abnormal motor strength present and Other motor observations present (no focal motor deficits) Psych: COMMON NORMALS: speech normal SPEECH: Yes normal speech MOOD & AFFECT: Yes euthymic mood Course Vital Signs: Vital signs: Vital Signs Pulse Rate 76 12/31/21 18:11 Respiratory Rate 14 12/31/21 18:11 Blood Pressure 134/68 12/31/21 18:11 Pulse Oximetry 96 12/31/21 18:11 Oxygen Delivery Me thod 12/31/21 16:08 Oxygen Flow Rate 6 12/31/21 16:08 [facility] - General Adult Medical Decision Making Patient is 71-year-old female with chronic indwelling Hammer, COPD chronically on 3 L oxygen, currently on hospice presenting to emergency for concerns of urinary catheter issue. On exam, patient has an indwelling 16 Syriac Hammer. The indwelling Hammer appears to be flushing and functioning currently. We performed a bladder scan there is no significant urinary retention (<100cc). At this time. patient has no other focal complaints. Will discharge patient home at this time. Disposition: Discharge. Patient counseled regarding diagnostic impression, treatment plan. Patient given ED strict return precautions to return for continuation, worsening, or development of new symptoms. Instructed to f/u w/ PCP regarding symptoms today. Patient verbalized understanding. Discharge Plan Discharge Patient Disposition: Home Clinical Impression: Malfunction of Hammer catheter Condition: Stable Prescriptions: No Action budesonide-formoterol [Symbicort] 160-4.5 mcg/actuation HFA aerosol inhaler 2 puff INHALATION BID albuterol sulfate [Ventolin HFA] 90 mcg/actuation HFA aerosol inhaler 2 puff INHALATION Q6H PRN levothyroxine 125 mcg capsule 125 mcg PO DAILY azithromycin 250 mg tablet See Rx Instructions .ROUTE .COMPLEX Qty: 6 0RF Rx Instructions: For 250 mg dose pack: take 500 mg today (day 1), then 250 mg for 4 days (days 2-5) prednisone 20 mg tablet 20 mg PO TID Qty: 15 0RF Rx Instructions: 1 p.o. 3 times daily x3 days, 1 p.o. twice daily x2 days, 1 p.o. daily x2 days ipratropium-albuterol 0.5 mg-3 mg(2.5 mg base)/3 mL solution for nebulization 3 ml inhalation Q4H PRN (Reason: shortness of breath or wheezing) Qty: 180 0RF Rx Instructions: until breathing returns to target peak flow/parameters Discharge Orders: Discharge ED (Routine); Ordered 12/31/21 Ordered By: Lisha Harris Referrals: Carson Murray DO [Primary Care Provider] - Discharge Diet: Advance as tolerated Discharge Activity: Increase activity as tolerated Activity Restrictions/Additional Instructions: Come back if you have any new or concerning issues. Coding Level of Care Code ED Wireless Manager for Ji Fwd Exam Comprehensive
[2021-12-31 18:11] VITALS: BP 134/68; PULSE 76; RESP 14; O2SAT 96
--- NOTE | 2021-12-31 18:13 | PC.NURSE ---
Pts catheter was flowing while she was here.
== END 2021-12-31 18:14 | disposition home or self-care (01) ==
PROVIDERS: Emergency Provider Emergency Medicine; PCP Family Medicine
DX: T83.098A Other mechanical complication of other urinary catheter, initial encounter (principal); J44.9 Chronic obstructive pulmonary disease, unspecified; Z87.891 Personal history of nicotine dependence
CPT/HCPCS: 51798; 99283

== ENCOUNTER 2022-02-07 14:53 | Inpatient (IN) | payer MEDICARE, SELFPAY ==
[2022-02-07] VITALS (16 sets, daily range): BP systolic 138–208; BP diastolic 70–105; PULSE 68–112; RESP 14–26; TEMP 36.1–36.8; O2SAT 96–100
--- NOTE | 2022-02-07 14:59 | ECG_ITS ---
[facility] Test Date: 2022-02-07 Pat Name: Socorro Montes De Oca Department: Room: Gender: Female Dramatic Critic: : 1950 Requested By: Ildefonso Murillo Order Number: [id number] Octavio MD: Giorgi Justin M.D. Measurements Intervals [place] Rate: 100 P: 88 AR: 142 QRS: 75 QRSD: 79 T: 84 QT: 351 QTc: 454 Interpretive Statements SINUS TACHYCARDIA POSSIBLE RIGHT VENTRICULAR CONDUCTION DELAY [RSR (QR) IN V1/V2] ABNORMAL RHYTHM ECG Compared to ECG 09/01/2021 07:31:25 Sinus rhythm no longer present Electronically Signed On 02-07-2022 20:37:48 WARDROBE SUPERVISOR by Giorgi Justin M.D. [id number]
--- NOTE | 2022-02-07 15:00 | XRR_ITS ---
PROCEDURE INFORMATION: Exam: XR Chest Exam date and time: 02/07/2022 4:24 PM Age: 71 years old Clinical indication: Condition or disease; Lung condition and disease; Respiratory failure; Status not specified; Additional info: Resp failure TECHNIQUE: Imaging protocol: Radiologic exam of the chest. Views: 1 view. COMPARISON: CR XR chest 1V portable [id number] 11/29/2021 6:27 AM FINDINGS: Lungs: Bilateral lung apices are obscured by patient's chin. Pleural spaces: Unremarkable. No pleural effusion. No pneumothorax. Heart/Mediastinum: Unremarkable. No cardiomegaly. Bones/joints: Degenerative changes of the spine. XR/XR chest 1V portable [id number] IMPRESSION: No acute abnormality.
--- NOTE | 2022-02-07 15:01 | W.ED.SOB ---
HPI - SOB/Dyspnea General: Chief Complaint: Shortness of Breath/Dyspnea Stated Complaint: Resp. Distress Time Seen by Provider: 02/07/22 14:58 Source: patient, EMS and old records reviewed Mode of arrival: EMS Limitations: physical limitation and other (severe respiratory distress) History of Present Illness: HPI Narrative: 71-year-old female presents by EMS in respiratory distress. EMS reports that patient ran out of her breathing treatments today. She has a history of hypoxic and hypercapnic respiratory failure. She was on 6 L of oxygen at home and satting in the 70s when they arrived. They have done multiple albuterol treatments and duo nebs. They have given Decadron and Solu-Medrol. The patient has had to be intubated in the past. EMS reports her end-tidal CO2 was very high. Patient is in tripod position and breathing supplemental oxygen on arrival. She is tachycardic and stating that she needs help. Patient does tell me that she is willing to be intubated if necessary. She is willing to try BiPAP. I am going to facilitate this with some ketamine and morphine in low doses. RT has been called. Pertinent Positives: Pertinent Negatives: 12 Point ROS: Cannot be performed due to the patient's respiratory distress and acuity of the condition. Review of Systems Narrative: Review of systems cannot be completely performed due to the patient's severe respiratory distress and inability to communicate as well as the acuity of the condition. It is clear that the patient is here for acute on chronic respiratory failure and has failed multiple breathing treatments in route. [facility] ED PFSH: Medical History (Updated 01/08/22 @ 00:01 by ) COPD (chronic obstructive pulmonary disease) Panic anxiety syndrome Surgical History History of appendectomy History of cholecystectomy History of hysterectomy Hx of tonsillectomy Social History Smoking and tobacco status: former smoker Quit status (tobacco): has quit using tobacco Year quit tobacco: 2015 - 1PPD x 40 Years Alcohol intake: never Lives independently: Yes Household members: none Current occupational status: disabled Pets and animals: Yes Pets & animals: dog(s) History of recent travel: No Current gender identity: Female Physical Exam Const: EXAM LIMITATIONS: no altered mental status GENERAL APPEARANCE: not lethargic NUTRITIONAL APPEARANCE: thin ORIENTATION/CONSCIOUSNESS: Yes awake; not confused, not patient obtunded and not lethargic HENMT: COMMON NORMALS: normocephalic HEAD & SCALP: normocephalic Eye: COMMON NORMALS: EOMs intact bilaterally and conjunctivae normal CONJUNCTIVA: Yes conjunctivae normal Neck/C-Spine: GENERAL: Yes normal visual inspection and Yes trachea midline Resp: EFFORT & INSPECTION: No able to speak in complete sentences, No symmetric chest movement, Yes abnormal respiratory pattern, Yes tachypneic, Yes respiratory distress, Yes pursed lip breathing, Yes labored, Yes grunting, Yes retractions, Yes uses accessory muscles, Yes tripod positioning and Yes prolonged expiratory phase AUSCULTATION: diminished lung sounds Cardio: COMMON NORMALS: regular rhythm RATE: tachycardic RHYTHM: regular rhythm Extremity: COMMON NORMALS: normal to inspection Neuro: COMMON NORMALS: moves all extremities, no focal motor deficits and no sensory deficits noted SENSORIUM/ORIENTATION: No lethargic Skin: COMMON NORMALS: no jaundice Course Vital Signs: Vital signs: Vital Signs Temperature 98.3 F 02/07/22 14:54 Pulse Rate 85 02/07/22 16:24 Respiratory Rate 14 02/07/22 16:12 Pulse Oximetry 100 02/07/22 16:24 Oxygen Delivery Me thod 02/07/22 16:12 Oxygen Flow Rate 6 02/07/22 14:54 Fraction of Inspir ed Oxygen 35 02/07/22 16:24 MDM - SOB/Dyspnea Medical Decision Making History is limited due to the acuity of the condition but the patient is presenting in a classic fashion for decompensated chronic respiratory failure with acute hypoxia and hypercapnia. She has diminished breath sounds and is using all of her accessory muscles to help ventilate. Patient will be given 10 mg of ketamine, 2 mg of morphine and a BiPAP will be immediately initiated by respiratory therapy. ABG will be obtained. If the patient is not improving or is getting worse, she will require intubation. Steroids have already been given. Magnesium will be given as another adjunct to help with bronchospasm. Update: Fortunately, the patient has had a dramatic improvement using BiPAP assisted with the ketamine and morphine. Her initial blood gas was alarming and her second blood gas has shown significant improvement. Her respiratory rate has dramatically improved and her work of breathing has as well. She is now much more calm. Her white blood cell count is 11,000 and her chest x-ray does not show any focal infiltrates although it is difficult to see where her head is blocking part of her lung field. Chemistries are still pending. New I talked to Dr. Allen and we are going to admit the patient to the ICU today to make sure she does not go backwards with her BiPAP and require intubation. Lab Data 02/07/22 16:20 02/07/22 16:20 Labs/Radiology: Radiology Impressions Chest X-Ray 02/07/22 15:00 IMPRESSION: No acute abnormality. Laboratory Results WBC 11.0 10^3/uL (4.0-10.0) H 02/07/22 16:20 RBC 3.92 10^6/uL (4.1-5.3) L 02/07/22 16:20 Hgb 12.6 g/dL (11.5-15.3) 02/07/22 16:20 Hct 40.6 % (37.0-47.0) 02/07/22 16:20 MCV 103.6 fl (81-99) H 02/07/22 16:20 MCH 32.1 pg (28.0-34.0) 02/07/22 16:20 MCHC 31.0 g/dL (30.0-36.0) 02/07/22 16:20 RDW 14.5 % (12.1-15.1) 02/07/22 16:20 Plt Count 307 10^3/cmm (130-400) 02/07/22 16:20 MPV 10.0 fL (7.4-10.4) 02/07/22 16:20 Neut % (Auto) 79.0 % 02/07/22 16:20 Lymph % (Auto) 10.2 % 02/07/22 16:20 Harris % (Auto) 5.1 % 02/07/22 16:20 Eos % (Auto) 4.8 % 02/07/22 16:20 Baso % (Auto) 0.5 % 02/07/22 16:20 Neut # (Auto) 8.65 10^3/uL (1.8-7.7) H 02/07/22 16:20 Lymph # (Auto) 1.1 10^3/uL (0.8-4.8) 02/07/22 16:20 Harris # (Auto) 0.6 10^3/uL (0.2-0.9) 02/07/22 16:20 Eos # (Auto) 0.5 10^3/uL (0.0-0.8) 02/07/22 16:20 Baso # (Auto) 0.1 10^3/uL (0.0-0.1) 02/07/22 16:20 Nucleated RBC % (auto) 0 % 02/07/22 16:20 Nucleated RBCs # 0.0 /100WBC 02/07/22 16:20 Specimen Type Arterial 02/07/22 16:20 Sample Site Brachial, right 02/07/22 16:20 ABG pH 7.26 (7.35-7.45) L 02/07/22 16:20 ABG pCO2 71.1 mmHg (35-45) H* 02/07/22 16:20 ABG pO2 112.0 mmHg (80.0-100.0) H 02/07/22 16:20 ABG HCO3 32.2 mmol/L (22-26) H 02/07/22 16:20 ABG Base Excess 3.1 mmol/L (-2.0-2.0) H 02/07/22 16:20 Stephen Test N/a 02/07/22 16:20 Hematocrit 39.5 % (37-47) 02/07/22 16:20 Hgb O2 Saturation 98.2 % (95-100) 02/07/22 15:10 Carboxyhemoglobin 0.6 %THgb (0.4-20.1) 02/07/22 15:10 Methemoglobin 0.9 % (0.4-1.5) 02/07/22 15:10 Total Hemoglobin 14.0 g/dL (12-16) 02/07/22 15:10 O2 Delivery Device Bipap 02/07/22 16:20 O2 Liters/Min 8.0 % 02/07/22 15:10 FiO2 35.0 % 02/07/22 16:20 Early Intervention School Psychologist ID [facility] 02/07/22 16:20 Discharge Plan Discharge Condition: Stable Prescriptions: No Action budesonide-formoterol [Symbicort] 160-4.5 mcg/actuation HFA aerosol inhaler 2 puff INHALATION BID albuterol sulfate [Ventolin HFA] 90 mcg/actuation HFA aerosol inhaler 2 puff INHALATION Q6H PRN levothyroxine 125 mcg capsule 125 mcg PO DAILY azithromycin 250 mg tablet See Rx Instructions .ROUTE .COMPLEX Qty: 6 0RF Rx Instructions: For 250 mg dose pack: take 500 mg today (day 1), then 250 mg for 4 days (days 2-5) prednisone 20 mg tablet 20 mg PO TID Qty: 15 0RF Rx Instructions: 1 p.o. 3 times daily x3 days, 1 p.o. twice daily x2 days, 1 p.o. daily x2 days ipratropium-albuterol 0.5 mg-3 mg(2.5 mg base)/3 mL solution for nebulization 3 ml inhalation Q4H PRN (Reason: shortness of breath or wheezing) Qty: 180 0RF Rx Instructions: until breathing returns to target peak flow/parameters Referrals: Carson Murray, [Primary Care Provider] - Coding Level of Care Code ED Director Of Strategic Partnerships for Chg Fwd Exam Comprehensive
[2022-02-07] MEDS: magnesium sulfate premix 2 GM/50 ML PIGGYBACK IV (15:15)
[2022-02-07] MEDS: morphine 4 mg/mL SDV 1 mL 2 MG IVP (15:16)
[2022-02-07] MEDS: sodium chloride 0.9% 500 ML 999 ML IV (15:19)
[2022-02-07 15:22] LABS: ABG PCO2 95.2 mmHg (35-45); ABG PH Result 7.18 (7.35-7.45); Arterial Blood Gas Hematocrit 42.9 % (37-47); Base Excess ABG 3.8 mmol/L (-2.0-2.0); Blood Gas Operator Identificat AMH; Blood Gas Sample Site Brachial, right; Blood Gas Sample Type Arterial; Carboxyhemoglobin 0.6 %THgb (0.4-20.1); HCO3 ABG 35.6 mmol/L (22-26); HGB O2 Sat 98.2 % (95-100); Methemoglobin 0.9 % (0.4-1.5); Oxygen Device CONT NEB
[2022-02-07] MEDS: albuterol 2.5 mg/3 mL Neb INHALATION (16:10)
[2022-02-07 16:32] LABS: ABG PCO2 71.1 mmHg (35-45); ABG PH Result 7.26 (7.35-7.45); Arterial Blood Gas Hematocrit 39.5 % (37-47); Base Excess ABG 3.1 mmol/L (-2.0-2.0); Blood Gas Operator Identificat AMH; Blood Gas Sample Site Brachial, right; Blood Gas Sample Type Arterial; HCO3 ABG 32.2 mmol/L (22-26); Oxygen Device BIPAP
[2022-02-07 16:38] LABS: Basophils # 0.1 10^3/uL (0.0-0.1); Basophils % 0.5 %; Eosinophils # 0.5 10^3/uL (0.0-0.8); Eosinophils % 4.8 %; Hematocrit 40.6 % (37.0-47.0); Hemoglobin 12.6 g/dL (11.5-15.3); Lymphocytes # 1.1 10^3/uL (0.8-4.8); Lymphocytes % 10.2 %; Mean Corpuscular Hemoglobin 32.1 pg (28.0-34.0); Mean Corpuscular Volume 103.6 fl (81-99); Monocytes # 0.6 10^3/uL (0.2-0.9); Monocytes % 5.1 %; Neutrophils # 8.65 10^3/uL (1.8-7.7); Nucleated Red Blood Cells % 0 %; Platelet Count 307 10^3/cmm (130-400); Red Blood Count 3.92 10^6/uL (4.1-5.3); Red Cell Distribution Width 14.5 % (12.1-15.1)
[2022-02-07 17:29] LABS: Alanine Aminotransferase 11 U/L (0-33); Alkaline Phosphatase 57 U/L (35-105); Anion Gap 11.1 (5-19); Aspartate Amino Transferase 17 U/L (0-32); Blood Urea Nitrogen 15 mg/dL (8-23); Calcium 9.1 mg/dL (8.5-10.5); Carbon Dioxide 36 mmol/L (22-29); Chloride 100 mmol/L (98-107); Creatinine Clr Calc Pharmacy 51.2095; Globulin 2.7 g/dL (1.3-4.6); Glucose 134 mg/dL (65-115); Magnesium 3.1 mg/dL (1.7-2.3); Osmolality Calculated 299 mOsm/kg (285-295); Potassium 4.1 mmol/L (3.5-5.1); Sodium 143 mmol/L (136-145); Total Bilirubin 0.6 mg/dL (0.15-1.2); Total Protein 6.7 g/dL (6.6-8.7)
--- NOTE | 2022-02-07 17:43 | P.HP_ITS ---
Providers/Chief Complaint Primary Care Provider: Carson Murray DO Chief Complaint: Resp. Distress History of Present Illness Pleasant 71-year-old lady with end-stage COPD currently under hospice care at baseline on 6 L nasal cannula oxygen states has been getting more short of breath for probably about a week has been using multiple nebulizer treatments but without improvement and today had run out of them. On ER's assessment satur ations in the 70s, rescue nebulization attempted, was also given Decadron and Solu-Medrol. In ER she was started on BiPAP support, she is ketamine, morphine. Received a dose of 2 g IV magnesium, additional butyryl nebulization. Did not show improvement with pulmonary respiratory rates 426 initial down to 16. Still respiratory acidosis but with improvement, pH 7.18-7.26, CO2 from 95.2-71.1. With regards to CODE STATUS discussion she states that she does not have a DPOA or surrogate decision-maker patient lives alone. She is currently on hospice care. She states that she was not sure regarding her decision and did state she considered that she would go on the ventilator, and initially admission was requested to ICU, however, on further consideration she states did not consider subsequent difficulty with extubation or difficulty with communication, or losing ability to make decisions for herself without surrogate decision maker and certainly would not want to be on the ventilator if there was a chance that it may turn into protracted intubation. She states that she does not want intubation or mechanical ventilatory support. She is okay with continuing BiPAP support. If respiratory status was deteriorating to the point that she would need intubation she would prefer being kept comfortable and let nature take its course. She is willing to further detail her wishes with advanced directives and is willing to meet with case management to do so. She understands that she may change her wishes. Review of Systems Const: Denies: fever(s), chills, body aches or malaise Eyes: Denies: change in vision, eye discomfort or eye redness ENMT: Denies: throat pain, oral sores or ear or mastoid pain Card: Denies: chest pain, edema, pre-syncope or dyspnea on exertion Resp: Reports: dyspnea, non-productive cough and wheezing; Denies: productive cough, change in phlegm color or hemoptysis GI: Denies: abdominal pain, nausea, vomiting, diarrhea, constipation, hematochezia or melena : Denies: flank pain, urinary frequency or hematuria Musc: Denies: back pain, joint swelling or joint redness Skin/Breast: Denies: rash or new lesions Neuro: Denies: headache(s), numbness in extremities, weakness in extremities, dizziness, confusion or seizure-like activity Endo: Denies: polyuria or polydipsia Arnav/Lymph: Denies: easy bleeding or tender lymph nodes All/Imm: Denies: urticaria or tongue swelling Medications/Allergies Home Medications Medication Instructions Recorded Confirmed Last Taken Type albuterol sulfate 90 mcg/actuation 2 puff inhalation Q6H PRN 08/21/19 07/05/20 Unknown History aerosol inhaler (Ventolin HFA) budesonide-formoterol HFA 160 2 puff inhalation BID 08/21/19 07/05/20 Unknown History mcg-4.5 mcg/actuation aerosol inhaler (Symbicort) levothyroxine 125 mcg capsule 125 mcg PO DAILY 08/21/19 07/05/20 Unknown History azithromycin 250 mg tablet See Rx Instructions PO .COMPLEX #6 09/01/21 Unknown Rx tabs ipratropium 0.5 mg-albuterol 3 mg 3 ml inhalation Q4H PRN shortness 11/29/21 Unknown Rx (2.5 mg base)/3 mL nebulization of breath or wheezing #180 mL soln prednisone 20 mg tablet 20 mg PO TID #15 tabs 11/29/21 Unknown Rx Allergies Allergy/AdvReac Type Severity Reaction Status Date / Time olanzapine [From Zyprexa] Allergy Severe edema Verified 07/05/20 13:05 PFSH Acute PFSH: Medical History COPD (chronic obstructive pulmonary disease) Panic anxiety syndrome Surgical History History of appendectomy History of cholecystectomy History of hysterectomy Hx of tonsillectomy Social History Smoking and tobacco status: former smoker Quit status (tobacco): has quit using tobacco Year quit tobacco: 2014 - 1PPD x 40 Years Alcohol intake: never Lives independently: Yes Household members: none Current occupational status: disabled Pets and animals: Yes Pets & animals: dog(s) History of recent travel: No Current gender identity: Female Vitals/I&O/Wt Last Vital Signs Temp 98.3 F 02/07/22 14:54 Pulse 78 02/07/22 16:28 Resp 16 02/07/22 16:28 BP 188/96 02/07/22 16:28 Pulse Ox 100 02/07/22 16:24 O2 Del Method 02/07/22 16:12 O2 Flow Rate 6 02/07/22 14:54 FiO2 35 02/07/22 16:24 02/07/22 02/07/22 02/07/22 06:59 14:59 22:59 Intake Total 500 / 500 Balance 500 / 500 Weight last 48 hrs Weight 61.235 kg Physical Exam Const: COMMON NORMALS: patient oriented x3 and alert GENERAL APPEARANCE: cooperative ORIENTATION/CONSCIOUSNESS: Yes awake OTHER: BiPAP HENMT: COMMON NORMALS: oropharynx normal Neck/C-Spine: COMMON NORMALS: no JVD Resp: COMMON NORMALS: clear to auscultation bilaterally AUSCULTATION: wheezes and diminished lung sounds Cardio: COMMON NORMALS: no JVD, regular rhythm, S1 normal heart sound present, S2 normal heart sound present and No murmurs present (Cardio) RHYTHM: regular rhythm HEART SOUNDS: S1 normal heart sound present and S2 normal heart sound present GI: COMMON NORMALS: Normal to inspection, nondistended, normoactive bowel sounds present, Soft to palpation and non-tender PALPATION: Yes Soft to palpation Extremity: COMMON NORMALS: no joint enlargement and no pedal edema Neuro: COMMON NORMALS: patient oriented x3 and moves all extremities SENSORIUM/ORIENTATION: Yes alert Skin: COMMON NORMALS: no rashes or lesions noted GENERAL SKIN EXAM: no rashes or lesions noted Data 02/07/22 16:20 02/07/22 16:20 A&P Assessment and plan (1) Acute on chronic respiratory failure with hypoxia and hypercapnia: Severe exacerbation of COPD/asthma overlap with diminished air entry, wheezing, cough, severe dyspnea, hypoxia in the 70s despite her usual 6 L oxygen supplementation. End-stage COPD on hospice care. Initial consideration for see admission as she did consider intubation, however, or consideration of risks of difficulty with extubation, contracted life support, also capacity of decision- making, lack of DPOA surrogate on further consideration she states would not want to be intubated. She is okay with BiPAP support. Otherwise would in case of progressive deterioration which would require intubation with instead prefer escalation of comfort measures without intubation for mechanical ventilatory support. We will request that wishes to be revisited and confirmed again. We will also request that she be seen by case management to further review and formalize her wishes with advanced directives. Currently continue Solu-Medrol IV, continue breathing treatments with DuoNeb, budesonide. Will empirically give Rocephin. Check COVID-19 PCR panel. Sputum culture. Continue BiPAP support for now, she has been improving. Wean down as tolerating. Xanax if needed for anxiety/panic. Currently she is calm, but does have history of both. (2) Asthma-COPD overlap syndrome: Plan Panic anxiety syndrome Confirm home medications. Attestations Medical Necessity Statement*: Admission of 40 minutes anticipated versus management of acute respiratory failure with hypoxia and hypercapnia with severe exacerbation of COPD, asthma exacerbation, with underlying asthma-COPD overlap syndrome. Coding Level of Care Code Acute Patient Financial Representative for Ji Melgar Diagnoses Acute on chronic respiratory failure with hypoxia and hypercapnia J96.21; J96.22 Asthma-COPD overlap syndrome J44.9
[2022-02-07 18:18] LABS: Influenza A by IFA negative (Negative); Influenza B by IFA negative (Negative); SARS Covid-2 Antigen negative (Negative)
[2022-02-07] MEDS: cefTRIAXone 1,000 MG in sodium chloride 0.9% (plus) 50 ML 100 MG IV (21:30)
[2022-02-07] MEDS: ALPRAZolam 0.5 mg Tablet PO (21:30)
[2022-02-07] MEDS: enoxaparin 40 mg/0.4 mL Syringe SUBCUT (21:30)
--- NOTE | 2022-02-07 21:57 | PC.NURSE ---
Patient stated I changed my mind, I want to be a full code. She is currently limited code. Dr. Oquendo notified.
--- NOTE | 2022-02-07 21:59 | PC.NURSE ---
Patient states she does not want any information given her son Fracisco. Patient states he left me when I was sick.
--- NOTE | 2022-02-07 22:03 | PC.NURSE ---
Patient states she goes by her middle name Linette.
--- NOTE | 2022-02-07 22:11 | PC.NURSE ---
Dr. Oquendo notified of patient asking for home Hydrocodone. Home Hydrocodone ordered.
[2022-02-07] MEDS: lanolin oint 7 gm 1 APPLIC TOPICAL (22:25)
[2022-02-07] MEDS: HYDROcodone-acetaminophen 10-325 mg Tablet PO (22:25)
--- NOTE | 2022-02-07 22:45 | PC.NURSE ---
Patient requesting that I call her son and ask him to feed her dogs. Son's phone number in chart is phone number to our ED. Patient states she does not know her son's phone number.
[2022-02-07] MEDS: budesonide 0.5 mg/2 mL Neb INHALATION (22:59)
[2022-02-07] MEDS: ipratropium-albuterol 3 mL Neb INHALATION (22:59)
[2022-02-07 23:48] LABS: Adenovirus Not Detected (NOT DETECT); Chlamydia Pneumoniae Not Detected (NOT DETECT); Coronavirus 229E,HKU1,NL63,OC4 Not Detected (NOT DETECT); Human Metapneumovirus Not Detected (NOT DETECT); Human Rhinovirus/Enterovirus Not Detected (NOT DETECT); Influenza A Not Detected (NOT DETECT); Influenza A H1 Not Detected (NOT DETECT); Influenza A H1-2009 Not Detected (NOT DETECT); Influenza A H3 Not Detected (NOT DETECT); Influenza B Not Detected (NOT DETECT); Mycoplasma Pneumoniae Not Detected (NOT DETECT); Parainfluenza Virus Type 1 Not Detected (NOT DETECT); Parainfluenza Virus Type 2 Not Detected (NOT DETECT); Parainfluenza Virus Type 3 Not Detected (NOT DETECT); Parainfluenza Virus Type 4 Not Detected (NOT DETECT); Respiratory Syncytial Virus A Not Detected (NOT DETECT); Respiratory Syncytial Virus B Not Detected (NOT DETECT); SARS-COV-2 Not Detected (NOT DETECT)
[2022-02-08] VITALS (19 sets, daily range): BP systolic 143–171; BP diastolic 76–83; PULSE 64–110; RESP 12–28; TEMP 36.4–36.6; O2SAT 94–98
[2022-02-08] MEDS: ipratropium-albuterol 3 mL Neb INHALATION ×6 (02:59→23:45)
[2022-02-08 05:00] LABS: Basophils % 0.1 %; Hematocrit 41.7 % (37.0-47.0); Hemoglobin 13.3 g/dL (11.5-15.3); Lymphocytes # 0.4 10^3/uL (0.8-4.8); Lymphocytes % 5.8 %; Mean Corpuscular HGB Conc 31.9 g/dL (30.0-36.0); Mean Corpuscular Hemoglobin 31.9 pg (28.0-34.0); Mean Platelet Volume 10.1 fL (7.4-10.4); Monocytes # 0.1 10^3/uL (0.2-0.9); Monocytes % 0.7 %; Neutrophils # 6.76 10^3/uL (1.8-7.7); Nucleated Red Blood Cells % 0 %; Platelet Count 312 10^3/cmm (130-400); Red Blood Count 4.17 10^6/uL (4.1-5.3); White Blood Count 7.3 10^3/uL (4.0-10.0)
[2022-02-08 05:22] LABS: Blood Urea Nitrogen 15 mg/dL (8-23); Calcium 9.1 mg/dL (8.5-10.5); Carbon Dioxide 30 mmol/L (22-29); Chloride 97 mmol/L (98-107); Creatinine Clr Calc Pharmacy 51.2095; Glucose 144 mg/dL (65-115); Osmolality Calculated 289 mOsm/kg (285-295); Sodium 138 mmol/L (136-145)
[2022-02-08 05:32] LABS: Anion Gap 15.4 (5-19); Potassium 4.4 mmol/L (3.5-5.1)
[2022-02-08] MEDS: budesonide 0.5 mg/2 mL Neb INHALATION ×2 (08:29→19:32)
[2022-02-08] MEDS: ALPRAZolam 0.5 mg Tablet PO ×2 (08:41→19:41)
[2022-02-08] MEDS: HYDROcodone-acetaminophen 10-325 mg Tablet PO ×3 (08:54→20:36)
--- NOTE | 2022-02-08 10:14 | PC.CHAP ---
Pastoral Care Encounter/Spiritual Assessment Type of Contact [] Declined manager code visit [] Patient/Family/Request visit [] Outpatient visit [] Follow-up visit [] Physician referral [] Code/Alert [x] Routine visit [] Staff referral [] Actively dying [] Patient sleeping [] Family support [] [] Out of room [] Palliative care [] [] Receiving care in room [] Pre-surgical visit [] Trauma [] Long length of stay [] ICU visit [] Other: Relational/Emotional Strength [x] Patient feels connected with others/family/visitors/staff [] Distress [] Loneliness/isolation [] Abandonment Spirituality of Patient [x] Person of Rylee [] Attends Anglican of their Rylee []x Believes in Prayer [] Reads Bible or Druze materials [] There are Spiritual issues to be addressed Activity Coordinator Interventions [x] Prayer [x] Active listening [x] Non-anxious presence [] Spiritual/emotional support [] Crisis/trauma care [] Spiritual counseling [] Bereavement support [] Provided bereavement packet [x] Provided Bible/devotional materials [] Provided toy/stuffed animal, coloring book to patient or family member [] Provided Communion [] Anointing/[place] [] Salvation [x] Completed spiritual assessment [] Other: Impact on Illness or Injury [] Angry [] Fearful [] Anxious [] Often cries [] Exhaustion [] Unable to work [] Unable to attend sabianism [] Unable to walk/stand [] Unable to read [] Unable to drive [] Unable to eat/drink [] Unable to sleep [] Unable to be with family [] Patient intubated [] Other: Summary Time spent with patient 10 min
[2022-02-08] MEDS: morphine 4 mg/mL SDV 1 mL 2 MG IVP ×2 (13:49→20:17)
--- NOTE | 2022-02-08 15:32 | PM.PN ---
Subjective Subjective: She is feeling somewhat better today. Breathing easier. Denies chest pain. Discussion again regarding CODE STATUS states she is decided she would not want intubation in case of deterioration, and would want CPR in case of cardiopulmonary arrest. She feels after discharge she may no longer continue with hospice care. Discussed with her consideration of different moving arrangement given she is living alone with severe deconditioning. She is very reluctant as she would not live without her dog. Understands that she may be at high risk of dying while living by herself. Vitals/I&O/Wt Last Vital Signs Temp 97.8 F 02/08/22 11:24 Pulse 92 02/08/22 11:26 Resp 21 H 02/08/22 13:49 BP 143/76 02/08/22 11:24 Pulse Ox 98 02/08/22 11:26 O2 Del Method 02/08/22 11:26 O2 Flow Rate 6 02/08/22 11:26 FiO2 30 02/08/22 08:29 02/08/22 02/08/22 02/08/22 06:59 14:59 22:59 Intake Total 120 / 790 650 / 650 Output Total 600 / 600 Balance -480 / 190 650 / 650 Weight last 48 hrs Weight 61.235 kg Physical Exam Const: COMMON NORMALS: patient oriented x3 and alert GENERAL APPEARANCE: cooperative ORIENTATION/CONSCIOUSNESS: Yes awake OTHER: BiPAP HENMT: COMMON NORMALS: oropharynx normal Neck/C-Spine: COMMON NORMALS: no JVD Resp: AUSCULTATION: no wheezes and other (Better air entry) Cardio: COMMON NORMALS: no JVD, regular rhythm, S1 normal heart sound present, S2 normal heart sound present and No murmurs present (Cardio) RHYTHM: regular rhythm HEART SOUNDS: S1 normal heart sound present and S2 normal heart sound present GI: COMMON NORMALS: Normal to inspection, nondistended, normoactive bowel sounds present, Soft to palpation and non-tender PALPATION: Yes Soft to palpation Extremity: COMMON NORMALS: no joint enlargement and no pedal edema Neuro: COMMON NORMALS: patient oriented x3 and moves all extremities SENSORIUM/ORIENTATION: Yes alert Skin: COMMON NORMALS: no rashes or lesions noted GENERAL SKIN EXAM: no rashes or lesions noted Data 02/08/22 04:45 02/08/22 04:45 A&P Assessment and plan (1) Acute on chronic respiratory failure with hypoxia and hypercapnia: Today and intraoperatively improving, today she is not wheezing. She is having better air entry. Feels better subjectively. Decreasing airway support requirement, weaned off BiPAP, currently down to 6 L nasal cannula. COVID-19 PCR, rapid flu negative. Reduce Solu-Medrol to 20 mg every 8 hours. Continue ceftriaxone, continue breathing treatments. Continue oxygen support and supportive care. Follow-up sputum culture if provides us with a sample. Xanax if needed for anxiety/panic. Currently she is calm, but does have history of both. After giving things additional thought she requested to adjust her CODE STATUS again to full code wanting cardiopulmonary resuscitation in case of arrest, want intubation in case needed for respiratory failure. Case management working on arranging for setting up a POLST form equivalent. She seems to have lost contact information for family, perhaps this may be reestablished with consideration of establishing DPOA. She states is not sure we will want to continue with hospice after discharge. (2) Asthma-COPD overlap syndrome: Plan Panic anxiety syndrome Confirm home medications. Attestations Medical Necessity Statement*: Continue admission for assessment management of acute on chronic hypoxic respiratory failure, de-escalation of therapy, goals of care discussion. Coding Level of Care Code Acute Lead Oxide Mill Tender for Ji Melgar Diagnoses Acute on chronic respiratory failure with hypoxia and hypercapnia J96.21; J96.22 Asthma-COPD overlap syndrome J44.9
[2022-02-08] MEDS: cefTRIAXone 1,000 MG in sodium chloride 0.9% (plus) 50 ML 100 MG IV (20:21)
[2022-02-08] MEDS: enoxaparin 40 mg/0.4 mL Syringe SUBCUT (20:26)
[2022-02-09] VITALS (18 sets, daily range): BP systolic 124–156; BP diastolic 67–77; PULSE 67–117; RESP 14–22; TEMP 36.4–36.6; O2SAT 93–99
[2022-02-09] MEDS: ALPRAZolam 0.5 mg Tablet PO ×2 (02:19→08:25)
[2022-02-09] MEDS: ipratropium-albuterol 3 mL Neb INHALATION ×6 (03:21→23:20)
--- NOTE | 2022-02-09 05:21 | PC.NURSE ---
Lab notified nurse that pt refused morning labs to be drawn.
--- NOTE | 2022-02-09 06:57 | PC.NURSE ---
Report given to Chari MACIEL at this time
[2022-02-09] MEDS: budesonide 0.5 mg/2 mL Neb INHALATION ×2 (07:40→20:44)
[2022-02-09] MEDS: HYDROcodone-acetaminophen 10-325 mg Tablet PO ×3 (08:25→19:50)
[2022-02-09] MEDS: CLONazepam 1 mg Tablet PO ×2 (13:47→19:51)
--- NOTE | 2022-02-09 13:48 | PM.PN ---
Subjective Subjective: This morning had anticoagulated, for short time refusing care, pulling of medical devices including her BiPAP mask. Received Xanax, with education regarding necessity of treatment medical devices in place. Currently wearing BiPAP. Complains of headache. Also states he did not feel like eating this morning. Feels like having some mashed potatoes. We will advance her diet. Discussed with her and states would be agreeable for supplementation with protein shakes. Vitals/I&O/Wt Last Vital Signs Temp 97.6 F 02/09/22 04:00 Pulse 78 02/09/22 11:29 Resp 14 02/09/22 11:26 BP 156/77 02/09/22 08:00 Pulse Ox 96 02/09/22 11:29 O2 Del Method 02/09/22 11:26 O2 Flow Rate 6 02/08/22 20:45 FiO2 30 02/09/22 11:29 02/08/22 02/09/22 02/09/22 22:59 06:59 14:59 Intake Total 170 / 820 600 / 1420 Balance 170 / 820 600 / 1420 Weight last 48 hrs Weight 61.235 kg Physical Exam Const: COMMON NORMALS: patient oriented x3 and alert GENERAL APPEARANCE: cooperative (Currently appearing calm and cooperative.) ORIENTATION/CONSCIOUSNESS: Yes awake OTHER: BiPAP HENMT: COMMON NORMALS: oropharynx normal Neck/C-Spine: COMMON NORMALS: no JVD Resp: AUSCULTATION: diminished lung sounds Cardio: COMMON NORMALS: no JVD, regular rhythm, S1 normal heart sound present, S2 normal heart sound present and No murmurs present (Cardio) RHYTHM: regular rhythm HEART SOUNDS: S1 normal heart sound present and S2 normal heart sound present GI: COMMON NORMALS: Normal to inspection, nondistended, normoactive bowel sounds present, Soft to palpation and non-tender PALPATION: Yes Soft to palpation Extremity: COMMON NORMALS: no joint enlargement and no pedal edema Neuro: COMMON NORMALS: patient oriented x3 and moves all extremities SENSORIUM/ORIENTATION: Yes alert Skin: COMMON NORMALS: no rashes or lesions noted GENERAL SKIN EXAM: no rashes or lesions noted Data 02/08/22 04:45 02/08/22 04:45 A&P Assessment and plan (1) Acute on chronic respiratory failure with hypoxia and hypercapnia: Air entry gradually improving. This morning had a panic attack, point of medical advice including check of her BiPAP. Received Xanax, with education BiPAP resumed. We will switch Xanax. Home medications not available. We will switch Xanax to quazepam daily. She takes at home. Resume also her other psychiatric medications. Will attempt to switch to prednisone 20 mg daily. Continue ceftriaxone, continue breathing treatments. Continue oxygen support and supportive care. Follow-up sputum culture if provides us with a sample. Clonazepam if needed for anxiety/panic. She is revoking hospice care. Intends to return home with home health. Understands that she is at high risk of mortality especially living at home by herself. High risk of readmission. (2) Asthma-COPD overlap syndrome: Plan Panic anxiety syndrome: Resume home medications, fluoxetine, venlafaxine. Doxepin. Resume clonazepam 1 mg 4 times daily as needed instead of Xanax. Confirm home medications. Attestations Medical Necessity Statement*: Continue admission for assessment management of acute on chronic respiratory failure, COPD exacerbation. Post discharge planning. Coding Level of Care Code Acute Crane Assembler for Ji Melgar Diagnoses Acute on chronic respiratory failure with hypoxia and hypercapnia J96.21; J96.22 Asthma-COPD overlap syndrome J44.9
[2022-02-09] MEDS: predniSONE 20 mg Tablet PO (15:59)
[2022-02-09] MEDS: doxepin 10 mg Capsule PO (18:51)
[2022-02-09] MEDS: cefTRIAXone 1,000 MG in sodium chloride 0.9% (plus) 50 ML 100 MG IV (20:37)
[2022-02-09] MEDS: enoxaparin 40 mg/0.4 mL Syringe SUBCUT (20:41)
[2022-02-10] VITALS (17 sets, daily range): BP systolic 128–170; BP diastolic 69–95; PULSE 53–108; RESP 14–28; TEMP 36.6–36.8; O2SAT 92–99
[2022-02-10] MEDS: ipratropium-albuterol 3 mL Neb INHALATION ×5 (02:49→23:50)
[2022-02-10] MEDS: HYDROcodone-acetaminophen 10-325 mg Tablet PO ×3 (04:50→17:51)
[2022-02-10] MEDS: CLONazepam 1 mg Tablet PO ×3 (04:50→17:51)
--- NOTE | 2022-02-10 04:52 | PC.NURSE ---
Patient refused to get her temperature and blood pressure taken. She was very irritable and angry when I tried to take her blankets off to get her blood pressure. She told me Leave me alone and was swinging her arms at me. I was able to get her oxygen stats and pulse because of her oxygen monitor.
[2022-02-10 05:44] LABS: Anion Gap 14.3 (5-19); Blood Urea Nitrogen 27 mg/dL (8-23); Calcium 9.9 mg/dL (8.5-10.5); Carbon Dioxide 33 mmol/L (22-29); Chloride 96 mmol/L (98-107); Creatinine Clr Calc Pharmacy 51.2095; Glucose 114 mg/dL (65-115); Osmolality Calculated 296 mOsm/kg (285-295); Potassium 3.3 mmol/L (3.5-5.1); Sodium 140 mmol/L (136-145)
[2022-02-10 06:42] LABS: Basophils % 0.1 %; Hematocrit 41.7 % (37.0-47.0); Hemoglobin 13.7 g/dL (11.5-15.3); Lymphocytes # 0.8 10^3/uL (0.8-4.8); Mean Corpuscular HGB Conc 32.9 g/dL (30.0-36.0); Mean Corpuscular Hemoglobin 32.1 pg (28.0-34.0); Mean Corpuscular Volume 97.7 fl (81-99); Mean Platelet Volume 9.7 fL (7.4-10.4); Monocytes # 1.2 10^3/uL (0.2-0.9); Monocytes % 6.4 %; Neutrophils # 16.75 10^3/uL (1.8-7.7); Neutrophils % 88.7 %; Nucleated Red Blood Cells % 0 %; Platelet Count 353 10^3/cmm (130-400); Red Blood Count 4.27 10^6/uL (4.1-5.3); Red Cell Distribution Width 14.4 % (12.1-15.1); White Blood Count 18.9 10^3/uL (4.0-10.0)
[2022-02-10] MEDS: fluoxetine 20 mg Capsule 40 MG PO (10:11)
[2022-02-10] MEDS: predniSONE 20 mg Tablet PO (10:12)
[2022-02-10] MEDS: doxepin 10 mg Capsule PO ×2 (10:12→17:51)
--- NOTE | 2022-02-10 10:35 | PC.SOCIAL ---
IMM update IMM updated with patient. Signed page 2. Copy Pg 2 provided. Initialled, dated, timed, and placed in chart.
--- NOTE | 2022-02-10 10:56 | P.PN_ITS ---
Subjective Subjective: This morning anxious, restless, crying, to cover oxygen, saturation down to 80s, refusing to wear BiPAP or oxygen. Yelling to be put out side and that she is going home. Coming to see her, she states she does not remember me, although is able to say that she is in the hospital and tell me the year. Temporarily agreed to wear BiPAP. Asking her why she is in the hospital, states she got short of breath. Asking if she wears oxygen at home, states yes she wears 6 L. Asking why she is not wearing it here, states she did not want to wear it she just wanted to go home. But she refused to listen, nor were we successful in attempted discussion with her she is at risk of dying with oxygen saturation continue to decrease into the 80s, and that as per prior discussion she has wanted us to save her life as she just continues yelling out you are trying to kill me . Saturation 80%. Vitals/I&O/Wt Last Vital Signs Temp 98.0 F 02/10/22 08:36 Pulse 72 02/10/22 08:36 Resp 16 02/10/22 08:36 BP 169/95 02/10/22 08:36 Pulse Ox 98 02/10/22 08:36 O2 Del Method 02/10/22 08:36 O2 Flow Rate 6 02/10/22 08:18 FiO2 39 02/09/22 16:06 02/09/22 02/10/22 02/10/22 22:59 06:59 14:59 Intake Total 770 / 1020 420 / 1440 240 / 240 Balance 770 / 1020 420 / 1440 240 / 240 Physical Exam Const: COMMON NORMALS: alert GENERAL APPEARANCE: in distress ORIENTATION/CONSCIOUSNESS: Yes awake and Yes confused OTHER: BiPAP HENMT: COMMON NORMALS: oropharynx normal Neck/C-Spine: COMMON NORMALS: no JVD Resp: AUSCULTATION: no wheezes, diminished lung sounds and other (Better air entry) Cardio: COMMON NORMALS: no JVD, regular rhythm, S1 normal heart sound present, S2 normal heart sound present and No murmurs present (Cardio) RHYTHM: regular rhythm HEART SOUNDS: S1 normal heart sound present and S2 normal heart sound present GI: COMMON NORMALS: non-tender Extremity: COMMON NORMALS: no pedal edema Neuro: COMMON NORMALS: moves all extremities SENSORIUM/ORIENTATION: Yes alert Psych: ATTITUDE: Yes uncooperative, Yes agitated and Yes hostile MOOD & AFFECT: Yes anxious, Yes irritable, Yes tearful and Yes hostile affect Data 02/10/22 06:17 02/10/22 04:40 A&P Assessment and plan (1) Acute encephalopathy: Encephalopathy, delirium, appears to be having a panic attack as well, secondary to hypoxia, check of her oxygen, feeding for the back on, refused to wear BiPAP, temporarily were, does not remember me. Healing out you are trying to kill me . Oxygenation improving with BiPAP. Continuous pulse ox. Haldol 2 mg IM. May be withdrawing from benzodiazepine, depending on how many clonazepam above she is taking at home. Ativan 0.5 mg IV, repeat if needed. Continue her clonazepam as needed. Possibility of steroid-induced psychosis, although we have been tapering off on steroid. Down to prednisone 20 mg a day. Check UA. (2) Acute on chronic respiratory failure with hypoxia and hypercapnia: Air entry gradually improving oxygenation has been and has weaned down to her usual 6 L nasal cannula, however, consideration was about going home, but today with acute encephalopathy, delirium. Continue prednisone 20 mg daily. Continue ceftriaxone, continue breathing treatments. Continue oxygen support and supportive care. Follow-up sputum culture if provides us with a sample. Clonazepam if needed for anxiety/panic. She is revoking hospice care. Intends to return home with home health. Understands that she is at high risk of mortality especially living at home by herself. High risk of readmission and mortality. (3) Asthma-COPD overlap syndrome: Plan Panic anxiety syndrome: Resume home medications, fluoxetine, venlafaxine. Doxepin. Resume clonazepam 1 mg 4 times daily as needed instead of Xanax. Confirm home medications. Attestations Medical Necessity Statement*: Admission for assessment management of acute encephalopathy, hypoxic respiratory failure. Coding Level of Care Code Acute Supervisor [facility] for Ji Melgar Diagnoses Acute encephalopathy G93.40 Acute on chronic respiratory failure with hypoxia and hypercapnia J96.21; J96.22 Asthma-COPD overlap syndrome J44.9
[2022-02-10] MEDS: venlafaxine 75 mg Tablet PO (12:27)
--- NOTE | 2022-02-10 19:58 | PC.NURSE ---
1100 patient refusing to were bipap and argueing with charge nurse and respiratory stating she wants to go to [facility],Dr Allen notified and he came to see patient, patient stated that she is a fullcode and wants everything done for her. Orders recieved and noted 1130 Patient calm and cooperative at this time and apologetic for previous behavior. Patient compliant with wearing bipap Dr Allen notified and new orders recieved
[2022-02-10] MEDS: budesonide 0.5 mg/2 mL Neb INHALATION (20:25)
[2022-02-10] MEDS: cefTRIAXone 1,000 MG in sodium chloride 0.9% (plus) 50 ML 100 MG IV (20:44)
[2022-02-10] MEDS: enoxaparin 40 mg/0.4 mL Syringe SUBCUT (20:44)
[2022-02-11] VITALS (20 sets, daily range): BP systolic 117–169; BP diastolic 53–89; PULSE 53–107; RESP 14–19; TEMP 36.3–36.7; O2SAT 93–97
[2022-02-11] MEDS: ipratropium-albuterol 3 mL Neb INHALATION ×6 (03:43→23:27)
[2022-02-11] MEDS: CLONazepam 1 mg Tablet PO (05:27)
[2022-02-11] MEDS: HYDROcodone-acetaminophen 10-325 mg Tablet PO (05:27)
[2022-02-11 06:03] LABS: Basophils % 0.2 %; Eosinophils # 0.1 10^3/uL (0.0-0.8); Eosinophils % 0.8 %; Hematocrit 41.5 % (37.0-47.0); Hemoglobin 13.6 g/dL (11.5-15.3); Lymphocytes # 1.6 10^3/uL (0.8-4.8); Lymphocytes % 14.2 %; Mean Corpuscular HGB Conc 32.8 g/dL (30.0-36.0); Mean Corpuscular Hemoglobin 31.6 pg (28.0-34.0); Mean Corpuscular Volume 96.5 fl (81-99); Mean Platelet Volume 10.5 fL (7.4-10.4); Monocytes # 1.2 10^3/uL (0.2-0.9); Monocytes % 10.1 %; Neutrophils # 8.49 10^3/uL (1.8-7.7); Neutrophils % 74.2 %; Nucleated Red Blood Cells % 0 %; Platelet Count 307 10^3/cmm (130-400); Red Cell Distribution Width 14.4 % (12.1-15.1); White Blood Count 11.4 10^3/uL (4.0-10.0)
[2022-02-11 06:27] LABS: Anion Gap 13.5 (5-19); Blood Urea Nitrogen 23 mg/dL (8-23); Calcium 9.5 mg/dL (8.5-10.5); Carbon Dioxide 34 mmol/L (22-29); Chloride 98 mmol/L (98-107); Creatinine Clr Calc Pharmacy 51.2095; Glucose 88 mg/dL (65-115); Osmolality Calculated 297 mOsm/kg (285-295); Potassium 3.5 mmol/L (3.5-5.1); Sodium 142 mmol/L (136-145)
[2022-02-11] MEDS: budesonide 0.5 mg/2 mL Neb INHALATION ×2 (07:42→19:35)
[2022-02-11 08:21] LABS: Add Urine Microscopic? NO; Charge for UA Resulting for Rev
[2022-02-11] MEDS: predniSONE 20 mg Tablet PO (08:32)
[2022-02-11] MEDS: fluoxetine 20 mg Capsule 40 MG PO (08:32)
[2022-02-11] MEDS: venlafaxine 75 mg Tablet PO (08:32)
[2022-02-11] MEDS: doxepin 10 mg Capsule PO ×2 (08:32→18:09)
[2022-02-11] MEDS: morphine 4 mg/mL SDV 1 mL 2 MG IVP (08:33)
[2022-02-11 08:35] LABS: Bilirubin Urine Neg (Negative); Blood Urine Neg (Negative); Glucose Urine UA Norm (Normal); Ketones Urine 1+ (Negative); Leukocyte Esterase Urine Negative (Negative); Nitrate Urine Negative (Negative); Protein Urine Neg (Negative); Urine Appearance Clear (CLEAR); Urine Color Yellow (Yellow); Urobilinogen Urine Neg (Negative); pH Urine 7 (5-7)
[2022-02-11] MEDS: CLONazepam 0.5 mg Tablet PO (15:38)
--- NOTE | 2022-02-11 17:06 | P.PN_ITS ---
Subjective Subjective: Hospital course, labs appreciated. Examination patient sitting at the side of the bed. Oxygen nasal cannula in mouth. Patient states she feels better once it is in the mouth and does not able to breathe by nose. Patient is on 4 L saturating 91%. Patient is out of breath and states this is not much different than her baseline. As per patient she was recently hospice secondary to advanced COPD and she ran out of her Ventolin rescue inhaler and she was feeling worse and called EMS and was brought to the ER. We discussed CODE STATUS in detail with the patient. Discussed unfortunately if patient goes on to the ventilator secondary to her advanced COPD there is a high chance she will not get on the ventilator. Patient stated she has been having advanced COPD since 1975 and in past in she also had a tracheostomy for advanced COPD. We discussed given her oxygen requirements and advancement in COPD and last 40 already years it is highly likely that patient will be ventilator dependent even a tracheostomy which would mean that she would need to be transferred to assisted or LTAC where they can manage trach patient with ventilator. Patient states her goal is to go home and does not want either tracheostomy or intubation. Patient is requesting her pain medication to be adjusted. She states she takes [place] 10 mg twice daily at home where she is getting 5 mg tablets in the hospital. Vitals/I&O/Wt Last Vital Signs Temp 98.0 F 02/11/22 16:00 Pulse 100 02/11/22 16:00 Resp 15 02/11/22 16:00 BP 169/89 02/11/22 16:00 Pulse Ox 96 02/11/22 16:00 O2 Del Method 02/11/22 16:00 O2 Flow Rate 5 02/11/22 15:18 FiO2 30 02/11/22 07:48 02/11/22 02/11/22 02/11/22 06:59 14:59 22:59 Intake Total 480 / 480 Balance 480 / 480 Physical Exam Const: COMMON NORMALS: patient oriented x3 and alert GENERAL APPEARANCE: cooperative (Currently appearing calm and cooperative.) and in distress ORIENTATION/CONSCIOUSNESS: Yes awake, Yes oriented to person, Yes oriented to place and Yes oriented to time OTHER: On nasal cannula, out of breath HENMT: COMMON NORMALS: oropharynx normal Neck/C-Spine: COMMON NORMALS: no JVD Resp: COMMON NORMALS: clear to auscultation bilaterally AUSCULTATION: clear to auscultation bilaterally, no wheezes, diminished lung sounds and other (Better air entry) Cardio: COMMON NORMALS: no JVD, regular rhythm, S1 normal heart sound present, S2 normal heart sound present and No murmurs present (Cardio) RHYTHM: regular rhythm HEART SOUNDS: S1 normal heart sound present and S2 normal heart sound present GI: COMMON NORMALS: Normal to inspection, nondistended, normoactive bowel sounds present, Soft to palpation and non-tender PALPATION: Yes Soft to palpation Extremity: COMMON NORMALS: no joint enlargement and no pedal edema Neuro: COMMON NORMALS: patient oriented x3 and moves all extremities SENSORIUM/ORIENTATION: Yes alert, Yes oriented to person, Yes oriented to place and Yes oriented to time Psych: ATTITUDE: Yes uncooperative, Yes agitated and Yes hostile MOOD & AFFECT: Yes anxious, Yes irritable, Yes tearful and Yes hostile affect Skin: COMMON NORMALS: no rashes or lesions noted GENERAL SKIN EXAM: no rash es or lesions noted Data 02/11/22 05:05 02/11/22 05:05 A&P Assessment and plan (1) Acute encephalopathy: Seems to be back to baseline currently. Takes Klonopin mostly as scheduled at home and not as needed. Patient has been getting Klonopin 4 times daily as needed. Switch to 0.5 mg 3 times daily. Increased [place] to home dose of 10 mg every 6 hours as needed. Continue with low-dose of prednisone 20 mg daily. UA negative for any signs of UTI currently. (2) Acute on chronic respiratory failure with hypoxia and hypercapnia: History of advanced COPD. Was recently on hospice which she removed. Wants to go home with home health on discharge this time. CODE STATUS changed as per patient's request through chest compressions only without ventilator. Continue with DuoNebs every 6 hour, budesonide twice daily, prednisone low-dose 20 mg daily. Chronic and as needed and scheduled as above for anxiety. (3) Asthma-COPD overlap syndrome: Plan Panic anxiety syndrome: Resume home medications, fluoxetine, venlafaxine. Doxepin. Resume clonazepam 1 mg 4 times daily as needed instead of Xanax. Confirm home medications. Limited resuscitation to CPR only. Regular diet. Lovenox for DVT prophylaxis. Protonix for PUD prophylaxis Attestations Medical Necessity Statement*: Requires further hospitalization for management of acute on chronic hypoxic respiratory failure secondary to advanced COPD Time Spent in Patient Care: Greater than 35 minutes Coding Level of Care Code Acute Pattern Developer for Ji Fwd Diagnoses Acute encephalopathy G93.40 Acute on chronic respiratory failure with hypoxia and hypercapnia J96.21; J96.22 Asthma-COPD overlap syndrome J44.9
[2022-02-11] MEDS: cefTRIAXone 1,000 MG in sodium chloride 0.9% (plus) 50 ML 100 MG IV (20:16)
[2022-02-11] MEDS: enoxaparin 40 mg/0.4 mL Syringe SUBCUT (20:16)
[2022-02-12] VITALS (14 sets, daily range): BP systolic 128–166; BP diastolic 68–100; PULSE 77–134; RESP 16–22; TEMP 36.6–36.8; O2SAT 80–99
[2022-02-12] MEDS: HYDROcodone-acetaminophen 10-325 mg Tablet 1 TAB PO ×3 (04:51→20:35)
[2022-02-12] MEDS: CLONazepam 1 mg Tablet PO (04:55)
[2022-02-12 05:38] LABS: Basophils % 0.3 %; Eosinophils # 0.3 10^3/uL (0.0-0.8); Eosinophils % 2.1 %; Hematocrit 43.4 % (37.0-47.0); Hemoglobin 14.4 g/dL (11.5-15.3); Lymphocytes # 1.7 10^3/uL (0.8-4.8); Lymphocytes % 14.1 %; Mean Corpuscular HGB Conc 33.2 g/dL (30.0-36.0); Mean Corpuscular Volume 96.4 fl (81-99); Monocytes # 1.1 10^3/uL (0.2-0.9); Monocytes % 9.3 %; Neutrophils # 8.62 10^3/uL (1.8-7.7); Neutrophils % 72.9 %; Nucleated Red Blood Cells % 0 %; Platelet Count 337 10^3/cmm (130-400); White Blood Count 11.8 10^3/uL (4.0-10.0)
[2022-02-12 05:59] LABS: Alanine Aminotransferase 23 U/L (0-33); Albumin Level 3.8 g/dL (3.5-5.2); Alkaline Phosphatase 60 U/L (35-105); Anion Gap 13.3 (5-19); Aspartate Amino Transferase 25 U/L (0-32); Blood Urea Nitrogen 13 mg/dL (8-23); Calcium 9.3 mg/dL (8.5-10.5); Carbon Dioxide 32 mmol/L (22-29); Chloride 97 mmol/L (98-107); Creatinine Clr Calc Pharmacy 51.2095; Globulin 2.5 g/dL (1.3-4.6); Glucose 92 mg/dL (65-115); Osmolality Calculated 288 mOsm/kg (285-295); Potassium 3.3 mmol/L (3.5-5.1); Sodium 139 mmol/L (136-145); Total Bilirubin 0.5 mg/dL (0.15-1.2); Total Protein 6.3 g/dL (6.6-8.7)
[2022-02-12] MEDS: ipratropium-albuterol 3 mL Neb INHALATION ×4 (07:57→20:12)
[2022-02-12] MEDS: budesonide 0.5 mg/2 mL Neb INHALATION ×2 (07:57→20:12)
[2022-02-12] MEDS: pantoprazole DR 40 mg Tablet PO (08:54)
[2022-02-12] MEDS: venlafaxine 75 mg Tablet PO (08:54)
[2022-02-12] MEDS: fluoxetine 20 mg Capsule 40 MG PO (08:54)
[2022-02-12] MEDS: CLONazepam 0.5 mg Tablet PO ×3 (08:54→20:35)
[2022-02-12] MEDS: predniSONE 20 mg Tablet PO (08:54)
[2022-02-12] MEDS: doxepin 10 mg Capsule PO ×2 (09:48→17:33)
--- NOTE | 2022-02-12 11:19 | PC.SOCIAL ---
IMM update IMM updated with patient. Verbalized an understanding. Copy Pg 2 provided. Initialled, dated, timed, and placed in chart.
--- NOTE | 2022-02-12 15:24 | P.PN_ITS ---
Subjective Subjective: No acute events overnight. Patient denies any nausea, vomiting, headache. Today morning got a call from nurse stating patient wants to leave AMA hence home O2 evaluation was done and she qualified for 5 L. Upon visiting with patient she states that she does not want to leave today but would want to go home as soon as possible. Patient wanted to discuss about the pain medication she takes at home. She takes as per her 20 mg of hydrocodone 3 times a day along with Klonopin 2 mg 4 times a day which has been prescribed to her by her primary care provider. Home medical reconciliation reviewed different. We discussed that we will call the pharmacy tomorrow and change doses if med rec states the same through pharmacy. Patient is agreeable to stay today to continue treatment. Continues to keep her oxygen to mouth the nose. Vitals/I&O/Wt Last Vital Signs Temp 98.0 F 02/12/22 12:00 Pulse 84 02/12/22 12:00 Resp 20 H 02/12/22 12:00 BP 128/68 02/12/22 12:00 Pulse Ox 80 L 02/12/22 12:12 O2 Del Method 02/12/22 12:00 O2 Flow Rate 5 02/12/22 12:12 FiO2 30 02/11/22 07:48 02/12/22 02/12/22 02/12/22 06:59 14:59 22:59 Intake Total 600 / 600 Balance 600 / 600 Physical Exam Const: COMMON NORMALS: patient oriented x3 and alert GENERAL APPEARANCE: cooperative (Currently appearing calm and cooperative.) and in distress ORIENTATION/CONSCIOUSNESS: Yes awake, Yes oriented to person, Yes oriented to place and Yes oriented to time OTHER: On nasal cannula, out of breath HENMT: COMMON NORMALS: oropharynx normal Neck/C-Spine: COMMON NORMALS: no JVD Resp: COMMON NORMALS: clear to auscultation bilaterally AUSCULTATION: clear to auscultation bilaterally, no wheezes, diminished lung sounds and other (Better air entry) Cardio: COMMON NORMALS: no JVD, regular rhythm, S1 normal heart sound present, S2 normal heart sound present and No murmurs present (Cardio) RHYTHM: regular rhythm HEART SOUNDS: S1 normal heart sound present and S2 normal heart sound present GI: COMMON NORMALS: Normal to inspection, nondistended, normoactive bowel sounds present, Soft to palpation and non-tender PALPATION: Yes Soft to palpation Extremity: COMMON NORMALS: no joint enlargement and no pedal edema Neuro: COMMON NORMALS: patient oriented x3 and moves all extremities SENSORIUM/ORIENTATION: Yes alert, Yes oriented to person, Yes oriented to place and Yes oriented to time Psych: ATTITUDE: Yes uncooperative, Yes agitated and Yes hostile MOOD & AFFECT: Yes anxious, Yes irritable, Yes tearful and Yes hostile affect Skin: COMMON NORMALS: no rashes or lesions noted GENERAL SKIN EXAM: no rashes or lesions noted Data 02/12/22 04:49 02/12/22 04:49 A&P Assessment and plan (1) Acute encephalopathy: Seems to be back to baseline currently. Takes Klonopin mostly as scheduled at home and not as needed. Patient has been getting Klonopin 4 times daily as needed. Switch to 0.5 mg 3 times daily. Increased [place] to home dose of 10 mg every 6 hours as needed. Continue with low-dose of prednisone 20 mg daily. UA negative for any signs of UTI currently. (2) Acute on chronic respiratory failure with hypoxia and hypercapnia: History of advanced COPD. Was recently on hospice which she removed. Wants to go home with home health on discharge this time. CODE STATUS changed as per patient's request through chest compressions only without ventilator. Continue with DuoNebs every 6 hour, budesonide twice daily, prednisone low-dose 20 mg daily. Chronic and as needed and scheduled as above for anxiety. (3) Asthma-COPD overlap syndrome: Plan Panic anxiety syndrome: Resume home medications, fluoxetine, venlafaxine. Doxepin. Resume clonazepam 1 mg 4 times daily as needed instead of Xanax. Confirm home medications. Limited resuscitation to CPR only. Regular diet. Lovenox for DVT prophylaxis. Protonix for PUD prophylaxis Plan for today: Continue with DuoNebs every 4 hour, budesonide twice daily along with prednisone 20 mg orally. Continue with [place] 10 mg daily as needed along with Klonopin 1 mg 4 times daily as needed. Schedule Klonopin 0.5 mg 3 times daily. Will repeat med rec to home pharmacy. Home O2 evaluation done as patient wanted to leave AMA. We will try to provide oxygen at bedside. If patient remains stable as currently within next 24 hours we will plan to discharge home with home health and oxygen. Patient does not want to reconsider hospice right now. Nicotine patch Attestations Medical Necessity Statement*: Requires further hospitalization for management of acute on chronic hypoxic respiratory failure secondary to COPD exacerbation in a patient who is a chronic smoker Time Spent in Patient Care: Greater than 35 minutes Coding Level of Care Code Acute Automotive Parts Salesperson for Rocg Fwd Diagnoses Acute encephalopathy G93.40 Acute on chronic respiratory failure with hypoxia and hypercapnia J96.21; J96 .22 Asthma-COPD overlap syndrome J44.9
[2022-02-12] MEDS: cefTRIAXone 1,000 MG in sodium chloride 0.9% (plus) 50 ML 100 MG IV (20:36)
[2022-02-12] MEDS: enoxaparin 40 mg/0.4 mL Syringe SUBCUT (20:36)
[2022-02-13] VITALS (7 sets, daily range): BP systolic 137–161; BP diastolic 72–89; PULSE 73–93; RESP 16–18; TEMP 36.4–37.1; O2SAT 97–99
[2022-02-13] MEDS: ipratropium-albuterol 3 mL Neb INHALATION ×3 (00:20→07:53)
[2022-02-13 05:25] LABS: Basophils % 0.2 %; Eosinophils # 0.2 10^3/uL (0.0-0.8); Eosinophils % 2.4 %; Hematocrit 44.4 % (37.0-47.0); Hemoglobin 14.6 g/dL (11.5-15.3); Lymphocytes # 1.2 10^3/uL (0.8-4.8); Lymphocytes % 11.6 %; Mean Corpuscular HGB Conc 32.9 g/dL (30.0-36.0); Mean Corpuscular Hemoglobin 31.5 pg (28.0-34.0); Mean Corpuscular Volume 95.9 fl (81-99); Mean Platelet Volume 10.2 fL (7.4-10.4); Monocytes # 0.9 10^3/uL (0.2-0.9); Monocytes % 8.4 %; Neutrophils # 7.64 10^3/uL (1.8-7.7); Neutrophils % 75.7 %; Nucleated Red Blood Cells % 0 %; Platelet Count 338 10^3/cmm (130-400); Red Blood Count 4.63 10^6/uL (4.1-5.3); Red Cell Distribution Width 13.9 % (12.1-15.1); White Blood Count 10.1 10^3/uL (4.0-10.0)
[2022-02-13 05:45] LABS: Alanine Aminotransferase 35 U/L (0-33); Albumin Level 3.9 g/dL (3.5-5.2); Alkaline Phosphatase 63 U/L (35-105); Blood Urea Nitrogen 18 mg/dL (8-23); Calcium 9.6 mg/dL (8.5-10.5); Carbon Dioxide 34 mmol/L (22-29); Chloride 93 mmol/L (98-107); Creatinine Clr Calc Pharmacy 51.2095; Globulin 2.5 g/dL (1.3-4.6); Glucose 88 mg/dL (65-115); Osmolality Calculated 285 mOsm/kg (285-295); Sodium 137 mmol/L (136-145); Total Bilirubin 0.5 mg/dL (0.15-1.2); Total Protein 6.4 g/dL (6.6-8.7)
[2022-02-13 05:48] LABS: Anion Gap 13.2 (5-19); Aspartate Amino Transferase 29 U/L (0-32); Potassium 3.2 mmol/L (3.5-5.1)
[2022-02-13] MEDS: budesonide 0.5 mg/2 mL Neb INHALATION (07:53)
[2022-02-13] MEDS: HYDROcodone-acetaminophen 10-325 mg Tablet 1 TAB PO (08:16)
[2022-02-13] MEDS: CLONazepam 0.5 mg Tablet PO (08:18)
[2022-02-13] MEDS: predniSONE 20 mg Tablet PO (08:18)
[2022-02-13] MEDS: pantoprazole DR 40 mg Tablet PO (08:18)
[2022-02-13] MEDS: fluoxetine 20 mg Capsule 40 MG PO (08:18)
[2022-02-13] MEDS: venlafaxine 75 mg Tablet PO (08:21)
[2022-02-13] MEDS: doxepin 10 mg Capsule PO (08:21)
--- NOTE | 2022-02-13 09:39 | PM.DCS ---
Discharge Providers Date of Admission: 02/07/22 19:15 Date of Discharge: February 13, 2022 Attending Provider at Admission: Vaibhav Allen Attending Provider at Discharge: Frank Sanchez MD Primary Care Provider: Carson Murray DO Diagnoses at Discharge Discharge Diagnosis (1) Acute encephalopathy: Status: Acute (2) Acute on chronic respiratory failure with hypoxia and hypercapnia: Status: Acute (3) Asthma-COPD overlap syndrome: Status: Acute Reason for Visit Reason for Visit: Resp. Distress Brief History: History as per HPI: As per admitting provider. Pleasant 71-year-old lady with end-stage COPD currently under hospice care at baseline on 6 L nasal cannula oxygen states has been getting more short of breath for probably about a week has been using multiple nebulizer treatments but without improvement and today had run out of them.? On ER's assessment saturations in the 70s, rescue nebulization attempted, was also given Decadron and Solu-Medrol.? In ER she was started on BiPAP support, she is ketamine, morphine.? Received a dose of 2 g IV magnesium, additional butyryl nebulization.? Did not show improvement with pulmonary respiratory rates 426 initial down to 16.? Still respiratory acidosis but with improvement, pH 7.18-7.26, CO2 from 95.2-71.1. Hospital Course Hospital Course Patient was admitted to the hospital for further evaluation and management of hypoxia secondary to COPD exacerbation. She was started on nebulization treatment along with systemic steroids. Her respiratory viral panel remain negative. Her home antianxiety medications were adjusted. Prior to admission patient was on hospice services which she had revoked in the ER. Further goals of care were discussed in detail with the patient multiple times and given her history of advanced COPD. Patient wants to continue not being on hospice but does not want to be intubated. CODE STATUS was changed to limited resuscitation to only CPR. Home O2 evaluation was done prior to discharge. She has been discharged in medically stable condition on steroid taper back home. She is advised to keep her oxygen at 3 L on rest and on 4 L on exertion with goal saturation of around 88 to 90%. She is advised to follow-up with a primary care provider within next 1 week. Physical Exam Const: COMMON NORMALS: patient oriented x3 and alert GENERAL APPEARANCE: cooperative (Currently appearing calm and cooperative.) and in distress ORIENTATION/CONSCIOUSNESS: Yes awake, Yes oriented to person, Yes oriented to place and Yes oriented to time OTHER: On nasal cannula, out of breath HENMT: COMMON NORMALS: oropharynx normal Neck/C-Spine: COMMON NORMALS: no JVD Resp: COMMON NORMALS: clear to auscultation bilaterally AUSCULTATION: clear to auscultation bilaterally, no wheezes, diminished lung sounds and other (Better air entry) Cardio: COMMON NORMALS: no JVD, regular rhythm, S1 normal heart sound present, S2 normal heart sound present and No murmurs present (Cardio) RHYTHM: regular rhythm HEART SOUNDS: S1 normal heart sound present and S2 normal heart sound present GI: COMMON NORMALS: Normal to inspection, nondistended, normoactive bowel sounds present, Soft to palpation and non-tender PALPATION: Yes Soft to palpation Extremity: COMMON NORMALS: no joint enlargement and no pedal edema Neuro: COMMON NORMALS: patient oriented x3 and moves all extremities SENSORIUM/ORIENTATION: Yes alert, Yes oriented to person, Yes oriented to place and Yes oriented to time Psych: ATTITUDE: Yes uncooperative, Yes agitated and Yes hostile MOOD & AFFECT: Yes anxious, Yes irritable, Yes tearful and Yes hostile affect Skin: COMMON NORMALS: no rashes or lesions noted GENERAL SKIN EXAM: no rashes or lesions noted Discharge Data Studies Completed and Pending Completed Studies During Hospitalization Category Date Time Status XR chest 1V portable [id number] Stat Exams 02/07/22 15:00 Completed Pending at discharge Category Date Time Status Comprehensive Metabolic Panel AM LABS Lab 02/14/22 04:00 Ordered Sputum Culture and Gram Stain Routine Lab 02/07/22 21:14 Uncollected Radiology Impressions Chest X-Ray 02/07/22 15:00 IMPRESSION: No acute abnormality. Laboratory Results WBC 10.1 10^3/uL (4.0-10.0) H 02/13/22 04:44 RBC 4.63 10^6/uL (4.1-5.3) 02/13/22 04:44 Hgb 14.6 g/dL (11.5-15.3) 02/13/22 04:44 Hct 44.4 % (37.0-47.0) 02/13/22 04:44 MCV 95.9 fl (81-99) 02/13/22 04:44 MCH 31.5 pg (28.0-34.0) 02/13/22 04:44 MCHC 32.9 g/dL (30.0-36.0) 02/13/22 04:44 RDW 13.9 % (12.1-15.1) 02/13/22 04:44 Plt Count 338 10^3/cmm (130-400) 02/13/22 04:44 MPV 10.2 fL (7.4-10.4) 02/13/22 04:44 Neut % (Auto) 75.7 % 02/13/22 04:44 Lymph % (Auto) 11.6 % 02/13/22 04:44 [place] % (Auto) 8.4 % 02/13/22 04:44 Eos % (Auto) 2.4 % 02/13/22 04:44 Baso % (Auto) 0.2 % 02/13/22 04:44 Neut # (Auto) 7.64 10^3/uL (1.8-7.7) 02/13/22 04:44 Lymph # (Auto) 1.2 10^3/uL (0.8-4.8) 02/13/22 04:44 [place] # (Auto) 0.9 10^3/uL (0.2-0.9) 02/13/22 04:44 Eos # (Auto) 0.2 10^3/uL (0.0-0.8) 02/13/22 04:44 Baso # (Auto) 0.0 10^3/uL (0.0-0.1) 02/13/22 04:44 Nucleated RBC % (auto) 0 % 02/13/22 04:44 Nucleated RBCs # 0.0 /100WBC 02/13/22 04:44 Specimen Type Arterial 02/07/22 16:20 Sample Site Brachial, right 02/07/22 16:20 ABG pH 7.26 (7.35-7.45) L 02/07/22 16:20 ABG pCO2 71.1 mmHg (35-45) H* 02/07/22 16:20 ABG pO2 112.0 mmHg (80.0-100.0) H 02/07/22 16:20 ABG HCO3 32.2 mmol/L (22-26) H 02/07/22 16:20 ABG Base Excess 3.1 mmol/L (-2.0-2.0) H 02/07/22 16:20 Stephen Test N/a 02/07/22 16:20 Hematocrit 39.5 % (37-47) 02/07/22 16:20 Hgb O2 Saturation 98.2 % (95-100) 02/07/22 15:10 Carboxyhemoglobin 0.6 %THgb (0.4-20.1) 02/07/22 15:10 Methemoglobin 0.9 % (0.4-1.5) 02/07/22 15:10 Total Hemoglobin 14.0 g/dL (12-16) 02/07/22 15:10 O2 Delivery Device Bipap 02/07/22 16:20 O2 Liters/Min 8.0 % 02/07/22 15:10 FiO2 35.0 % 02/07/22 16:20 Physician Primary Care Sports Medicine ID Amh 02/07/22 16:20 Sodium 137 mmol/L (136-145) 02/13/22 04:44 Potassium 3.2 mmol/L (3.5-5.1) L 02/13/22 04:44 Chloride 93 mmol/L (98-107) L 02/13/22 04:44 Carbon Dioxide 34 mmol/L (22-29) H 02/13/22 04:44 Anion Gap 13.2 (5-19) 02/13/22 04:44 BUN 18 mg/dL (8-23) 02/13/22 04:44 Creatinine 0.6 mg/dL (0.5-0.9) 02/13/22 04:44 GFR Calculation Not Reportable 02/13/22 04:44 Glucose 88 mg/dL (65-115) 02/13/22 04:44 Calculated Osmolality 285 mOsm/kg (285-295) 02/13/22 04:44 Calcium 9.6 mg/dL (8.5-10.5) 02/13/22 04:44 Magnesium 3.1 mg/dL (1.7-2.3) H 02/07/22 16:20 Total Bilirubin 0.5 mg/dL (0.15-1.2) 02/13/22 04:44 AST 29 U/L (0-32) 02/13/22 04:44 ALT 35 U/L (0-33) H 02/13/22 04:44 Alkaline Phosphatase 63 U/L (35-105) 02/13/22 04:44 Total Protein 6.4 g/dL (6.6-8.7) L 02/13/22 04:44 Albumin 3.9 g/dL (3.5-5.2) 02/13/22 04:44 Globulin 2.5 g/dL (1.3-4.6) 02/13/22 04:44 Urine Color Yellow (Yellow) 02/11/22 08:00 Urine Appearance Clear (CLEAR) 02/11/22 08:00 Urine pH 7 (5-7) 02/11/22 08:00 Ur Specific [place] 1.020 (1.005-1.030) 02/11/22 08:00 Urine Protein Neg (Negative) 02/11/22 08:00 Urine Glucose (UA) Norm (Normal) 02/11/22 08:00 Urine Ketones 1+ (Negative) H 02/11/22 08:00 Urine Blood Neg (Negative) 02/11/22 08:00 Urine Nitrate Negative (Negative) 02/11/22 08:00 Urine Bilirubin Neg (Negative) 02/11/22 08:00 Urine Urobilinogen Neg mg/dL (Negative) 02/11/22 08:00 Ur Leukocyte Esterase Negative (Negative) 02/11/22 08:00 Coronavirus 229E (PCR) Not detected (NOT DETECT) 02/07/22 21:15 Influenza Type A Ag negative (Negative) 02/07/22 Unknown Influenza Type B Ag negative (Negative) 02/07/22 Unknown SARS-CoV-2 (PCR) Not detected (NOT DETECT) 02/07/22 21:15 SARS-CoV-2 Ag (Rapid) negative (Negative) 02/07/22 Unknown Vitals Last Vital Signs Temp 98.8 F 02/13/22 08:00 Pulse 93 02/13/22 08:00 Resp 18 02/13/22 08:00 BP 151/82 02/13/22 08:00 Pulse Ox 97 02/13/22 08:00 O2 Del Method 02/13/22 08:00 O2 Flow Rate 5 02/13/22 07:54 FiO2 30 02/11/22 07:48 Discharge Plan Discharge Patient Disposition: Home Health Service Condition: Stable Prescriptions: New prednisone 20 mg Tablet See Taper PO DAILY Qty: 42 0RF Taper: predniSONE 60-10 60 mg Daily for 2 Days and 0 Hour 50 mg Daily for 2 Days and 0 Hour 40 mg Daily for 2 Days and 0 Hour 30 mg Daily for 2 Days and 0 Hour 20 mg Daily for 2 Days and 0 Hour 10 mg Daily for 2 Days and 0 Hour pantoprazole 40 mg Tablet,Delayed Release (Dr/Ec) 40 mg PO DAILY 30 Days Qty: 30 0RF Continued budesonide-formoterol [Symbicort] 160-4.5 mcg/actuation HFA aerosol inhaler 2 puff INHALATION BID albuterol sulfate [Ventolin HFA] 90 mcg/actuation HFA aerosol inhaler 2 puff INHALATION Q6H PRN (Reason: Shortness Of Breath) Prozac 40 mg Capsule 40 mg PO DAILY venlafaxine 75 mg Tablet 75 mg PO DAILY clonazepam 1 mg tablet 1 mg PO QID PRN (Reason: Anxiety) doxepin 10 mg Capsule 10 mg PO BID hydrocodone-acetaminophen 10-325 mg Tablet 1 - 2 tab PO QID PRN (Reason: Pain) ipratropium-albuterol 0.5 mg-3 mg(2.5 mg base)/3 mL solution for nebulization 3 ml inhalation Q4H PRN (Reason: shortness of breath or wheezing) Qty: 180 0RF Rx Instructions: until breathing returns to target peak flow/parameters Discharge Orders: Discharge Order (Routine); Ordered 02/13/22 Ordered By: Frank Sanchez Other Ambulatory Orders: DME: Oxygen (Order) Location: None Selected Ordered By: Frank Sanchez Referrals: [facility] [Outside] Carson Murray DO [Primary Care Provider] - 02/22/22 12:00 pm Discharge Diet: Regular and Cardiac Patient Instructions: Opioid Safety Activity Restrictions/Additional Instructions: Please follow-up with your primary care provider within Continue using your nebulization as before. Steroid taper as directed. Discharge Attestations Time Spent in Discharge Care*: greater than 30 min Specific Discharge Activities: educating patient, discussing with pcp/other providers, discussing with case planner/social workers/dc planners, documenting/other paperwork and evaluating patient/reviewing data Time Spent in Smoking Cessation: more than 10 minutes Status at Discharge: Cognitive status at discharge: mildly impaired cognition, Behavioral status at discharge: can be uncooperative, Functional status at discharge: uses cane/walker, Overall status at discharge: patient is back to baseline Quality Metrics Clinical Quality Measures [ No reported AMI, CVA or VTE this stay] Coding Level of Care Code Acute Chg FW DC note Exam Comprehensive Diagnoses Acute encephalopathy G93.40 Acute on chronic respiratory failure with hypoxia and hypercapnia J96.21; J96.22 Asthma-COPD overlap syndrome J44.9
== END 2022-02-13 13:30 | disposition home health service (06) | DRG 190 ==
LOC: ER 17:56 → MEDSURG 19:16
PROVIDERS: Admitting Provider Internal Medicine; Emergency Provider Emergency Medicine; PCP Family Medicine; Visit Provider Student in an Organized Health Care Education/Training Program
DX: J44.1 Chronic obstructive pulmonary disease with (acute) exacerbation (principal); J96.21 Acute and chronic respiratory failure with hypoxia; J96.22 Acute and chronic respiratory failure with hypercapnia; J45.901 Unspecified asthma with (acute) exacerbation; G93.40 Encephalopathy, unspecified; E87.29 Other acidosis; Z99.81 Dependence on supplemental oxygen; F41.0 Panic disorder [episodic paroxysmal anxiety]; F41.9 Anxiety disorder, unspecified; F17.200 Nicotine dependence, unspecified, uncomplicated; Z79.51 Long term (current) use of inhaled steroids; Z79.891 Long term (current) use of opiate analgesic
CPT/HCPCS: 36415; 36600; 71045; 80048; 80053; 81003; 82803; 82805; 83735; 85025; 87426; 87635; 87804; 93005; 94640; 94660; 94664; 94760; 94762; 96365; 96372; 96375; 99291; J0696; J1650; J2270; J2920; J3475; J3490; J7040; J7512; J7613; J7626

== ENCOUNTER 2022-03-01 10:59 | Emergency (ER) | payer MEDICARE, SELFPAY ==
[2022-03-01] VITALS (97 sets, daily range): BP systolic 118–170; BP diastolic 68–87; PULSE 74–126; RESP 13–25; TEMP 36.8; O2SAT 85–100; BMI 29.2
--- NOTE | 2022-03-01 11:02 | ED_ITS ---
HPI - SOB/Dyspnea General: Chief Complaint: Shortness of Breath/Dyspnea Stated Complaint: SOB Time Seen by Provider: 03/01/22 11:01 History of Present Illness: HPI Narrative: Ms. Montes De Oca is a 71-year-old lady with history of COPD asthma overlap syndrome with chronic hypoxic respiratory failure on 6 L at baseline presenting to the emergency department due to increased shortness of breath. Patient herself is somewhat vague as far as history reports a few day history of increased shortness of breath. No productive cough until coming to the emergency departme nt. Denies fevers chills or other source of infection. Intensity of symptoms is moderate to severe, course has worsened. Per EMS report patient was found to be in the 70s on her home oxygen of 6 L and improved with albuterol nebulized treatment, 0.25 terbutaline subcutaneously, and 6 mg Decadron. No other specific changes in health, exacerbating, or alleviating factors identified. Onset (ago): day(s) Timing: progressively worsening Severity: moderate Exacerbating factors: exertion and movement Relieving factors: bronchodilators Known history of: COPD Associated symptoms: Reports cough Review of Systems General: Reports: 10 or more systems reviewed and unremarkable except in HPI and below PFSH ED PFSH: Medical History Chronic respiratory failure with hypoxia COPD (chronic obstructive pulmonary disease) Panic anxiety syndrome Surgical History History of appendectomy History of cholecystectomy History of hysterectomy Hx of tonsillectomy Social History Smoking and tobacco status: former smoker Quit status (tobacco): has quit using tobacco Year quit tobacco: 2015 - 1PPD x 40 Years Alcohol intake: never Lives independently: Yes Household members: none Current occupational status: disabled Pets and animals: Yes Pets & animals: dog(s) History of recent travel: No Current gender identity: Female Physical Exam Const: COMMON NORMALS: alert GENERAL APPEARANCE: cooperative, well developed and ill appearing (Mildly) HENMT: COMMON NORMALS: normocephalic and atraumatic HEAD & SCALP: normocephalic and atraumatic Eye: COMMON NORMALS: conjunctivae normal CONJUNCTIVA: Yes conjunctivae normal SCLERA: sclerae normal Neck/C-Spine: COMMON NORMALS: supple GENERAL: Yes trachea midline Resp: EFFORT & INSPECTION: Yes able to speak in complete sentences AUSCULTATION: wheezes expiratory wheezes and diminished lung sounds Cardio: COMMON NORMALS: regular rhythm RATE: tachycardic RHYTHM: regular rhythm GI: COMMON NORMALS: Soft to palpation PALPATION: Yes Soft to palpation and No Tenderness to palpation present (GI) Extremity: GENERAL: Yes normal exam except as noted and No edema Neuro: COMMON NORMALS: moves all extremities SENSORIUM/ORIENTATION: Yes alert and No Orientation impaired Psych: COMMON NORMALS: mental status grossly normal and Normal thought process present THOUGHT PROCESS: Normal thought process present Course Vital Signs: Vital signs: Vital Signs Temperature 98.3 F 03/01/22 11:00 Pulse Rate 74 03/01/22 19:33 Respiratory Rate 20 H 03/01/22 19:33 Blood Pressure 118/78 03/01/22 19:33 Pulse Oximetry 94 03/01/22 19:33 Oxygen Delivery Me thod 03/01/22 16:31 Oxygen Flow Rate 6 03/01/22 16:31 MDM - SOB/Dyspnea Medical Decision Making 71-year-old lady with chronic hypoxic respiratory failure presenting to the emergency room due to shortness of breath. Exam as above. EKG notable for sinus rhythm, no STEMI. Labs notable for no leukocytosis, hemoglobin is normal. ABG is compensated. Metabolic panel without significant derangement to explain symptoms. 2-hour delta troponin is negative. Rapid viral studies negative. Chest x-ray with no lobar consolidation or pneumothorax. The patient felt significantly proved with RT treatment, fluids, antibiotics. She received EMS administered steroids. I discussed possible disposition options and the patient prefers discharge. Most likely etiology of symptoms is exacerbation of COPD. The results of ED evaluation were discussed with the patient including prescriptions and/or symptomatic cares (if applicable) including appropriate and responsible use, followup plan, and return precautions. The patient verbalized understanding and felt safe for discharge. Medical Records I reviewed the patient's medical records. Lab Data I reviewed the patient's lab results. 03/01/22 11:26 03/01/22 12:44 Labs/Radiology: Radiology Impressions Chest X-Ray 03/01/22 11:25 IMPRESSION: No acute cardiopulmonary process. Laboratory Results WBC 6.4 10^3/uL (4.0-10.0) 03/01/22 11: RBC 3.84 10^6/uL (4.1-5.3) L 03/01/22 11: Hgb 12.4 g/dL (11.5-15.3) 03/01/22 11: Hct 39.6 % (37.0-47.0) 03/01/22 11: MCV 103.1 fl (81-99) H 03/01/22 11:26 MCH 32.3 pg (28.0-34.0) 03/01/22 11: MCHC 31.3 g/dL (30.0-36.0) 03/01/22 11: RDW 14.5 % (12.1-15.1) 03/01/22 11: Plt Count 315 10^3/cmm (130-400) 03/01/22 11: MPV 10.1 fL (7.4-10.4) 03/01/22 11:26 Neut % (Auto) 45.8 % 03/01/22 11:26 Lymph % (Auto) 31.5 % 03/01/22 11:26 [place] % (Auto) 14.0 % 03/01/22 11:26 Eos % (Auto) 7.6 % 03/01/22 11:26 Baso % (Auto) 0.9 % 03/01/22 11: Neut # (Auto) 2.91 10^3/uL (1.8-7.7) 03/01/22 11:26 Lymph # (Auto) 2.0 10^3/uL (0.8-4.8) 03/01/22 11:26 [place] # (Auto) 0.9 10^3/uL (0.2-0.9) 03/01/22 11:26 Eos # (Auto) 0.5 10^3/uL (0.0-0.8) 03/01/22 11: Baso # (Auto) 0.1 10^3/uL (0.0-0.1) 03/01/22 11:26 Nucleated RBC % (auto) 0 % 03/01/22 11:26 Nucleated RBCs # 0.0 /100WBC 03/01/22 11:26 Specimen Type Arterial 03/01/22 11:37 Sample Site Radial, left 03/01/22 11:37 ABG pH 7.38 (7.35-7.45) 03/01/22 11:37 ABG pCO2 56.4 mmHg (35-45) H 03/01/22 11:37 ABG pO2 78.5 mmHg (80.0-100.0) L 03/01/22 11:37 ABG HCO3 33.5 mmol/L (22-26) H 03/01/22 11:37 ABG Base Excess 6.8 mmol/L (-2.0-2.0) H 03/01/22 11:37 Stephen Test Pos 03/01/22 11:37 Hematocrit 37.8 % (37-47) 03/01/22 11:37 Hgb O2 Saturation 95.6 % (95-100) 03/01/22 11:37 Carboxyhemoglobin 0.8 %THgb (0.4-20.1) 03/01/22 11:37 Methemoglobin 0.9 % (0.4-1.5) 03/01/22 11:37 Total Hemoglobin 12.3 g/dL (12-16) 03/01/22 11:37 O2 Delivery Device Nc 03/01/22 11:37 O2 Liters/Min 5.0 % 03/01/22 11:37 Crib Pad Maker ID Cak 03/01/22 11:37 Sodium 143 mmol/L (136-145) 03/01/22 12:44 Potassium 3.8 mmol/L (3.5-5.1) 03/01/22 12:44 Chloride 99 mmol/L (98-107) 03/01/22 12:44 Carbon Dioxide 32 mmol/L (22-29) H 03/01/22 12:44 Anion Gap 15.8 (5-19) 03/01/22 12:44 BUN 10 mg/dL (8-23) 03/01/22 12:44 Creatinine 0.7 mg/dL (0.5-0.9) 03/01/22 12:44 GFR Calculation Not Reportable 03/01/22 12:44 Glucose 128 mg/dL (65-115) H 03/01/22 12:44 Calculated Osmolality 297 mOsm/kg (285-295) H 03/01/22 12:44 Lactic Acid 2.4 mmol/L (0.5-2.2) H 03/01/22 11:26 Lactic Acid (Sepsis) 3.6 mmol/L (0.5-2.2) H 03/01/22 14:06 Calcium 9.3 mg/dL (8.5-10.5) 03/01/22 12:44 Total Bilirubin 0.4 mg/dL (0.15-1.2) 03/01/22 12:44 AST 16 U/L (0-32) 03/01/22 12:44 ALT 12 U/L (0-33) 03/01/22 12:44 Alkaline Phosphatase 62 U/L (35-105) 03/01/22 12:44 Troponin T Baseline 8 ng/L (0-10) 03/01/22 11:26 Troponin T 120 Minute 7.85 ng/L (0-10) 03/01/22 14:06 Delta Troponin T -0.15 ABS# (0-10) L 03/01/22 14:06 NT-Pro-B Natriuret Pep 131 pg/mL (0-125) H 03/01/22 12:44 Total Protein 6.5 g/dL (6.6-8.7) L 03/01/22 12:44 Albumin 4.1 g/dL (3.5-5.2) 03/01/22 12:44 Globulin 2.4 g/dL (1.3-4.6) 03/01/22 12:44 Influenza Type A Ag Negative (Negative) 03/01/22 12:15 Influenza Type B Ag Negative (Negative) 03/01/22 12:15 SARS-CoV-2 Ag (Rapid) negative (Negative) 03/01/22 11:16 Discharge Plan Discharge Patient Disposition: Home Clinical Impression: Acute exacerbation of chronic obstructive airways disease Condition: Stable Prescriptions: New levofloxacin 750 mg tablet 750 mg PO Q24H 10 Days Qty: 10 0RF albuterol sulfate 90 mcg/actuation HFA aerosol inhaler 2 inh inhalation Q4H PRN (Reason: shortness of breath or wheezing) Qty: 8.5 2RF No Action budesonide-formoterol [Symbicort] 160-4.5 mcg/actuation HFA aerosol inhaler 2 puff INHALATION BID albuterol sulfate [Ventolin HFA] 90 mcg/actuation HFA aerosol inhaler 2 puff INHALATION Q6H PRN (Reason: Shortness Of Breath) clonazepam 1 mg tablet 1 mg PO QID PRN (Reason: Anxiety) hydrocodone-acetaminophen 10-325 mg Tablet 1 - 2 tab PO QID PRN (Reason: Pain) ipratropium-albuterol 0.5 mg-3 mg(2.5 mg base)/3 mL solution for nebulization 3 ml inhalation Q4H PRN (Reason: shortness of breath or wheezing) Qty: 180 0RF Rx Instructions: until breathing returns to target peak flow/parameters levothyroxine 125 mcg tablet 125 mcg PO DAILY Discharge Orders: Discharge ED (Routine); Ordered 03/01/22 Ordered By: Isael Castorena Other Ambulatory Orders: DME: Oxygen (Order) Location: None Selected Ordered By: Isael Castorena Referrals: Carson Murray DO [Primary Care Provider] - Discharge Diet: Usual diet Discharge Activity: Increase activity as tolerated Patient Instructions: COPD (Chronic Obstructive Pulmonary Disease) (ED), Pulse Oximetry (ED) Activity Restrictions/Additional Instructions: Thank you for visiting the emergency department. You were seen and evaluated for shortness of breath. The most likely cause of your symptoms is exacerbation of COPD. We are pleased with your improvement in the emergency department. I will prescribe steroids and antibiotics. Please also use your albuterol metered-dose inhaler 2 puffs every 4 hours for 24 hours followed by 2 puffs every 6 hours for 24 hours followed by 2 puffs every 8 hours for 24 hours and then return to the normal schedule. Please follow-up with your primary care provider. Return to the emergency department for worsening symptoms, oxygen saturations less than 90% on your supplemental oxygen, or anything else that you are concerned about and feel needs emergency department evaluation. Coding Level of Care Code ED Relay Shop Tester for Ji Fwmalachi Exam Comprehensive
--- NOTE | 2022-03-01 11:25 | XRR_ITS ---
PROCEDURE INFORMATION: Exam: XR Chest Exam date and time: 03/01/2022 11:55 AM Age: 71 years old Clinical indication: Shortness of breath; Additional info: SOB TECHNIQUE: Imaging protocol: Radiologic exam of the chest. Views: 1 view. Total images: 1 COMPARISON: CR XR chest 1V portable [id number] 02/07/2022 4:24 PM FINDINGS: Lungs: Unremarkable. No consolidation. Pleural spaces: Unremarkable. No pleural effusion. No pneumothorax. Heart/Mediastinum: Unremarkable. No cardiomegaly. Bones/joints: Unremarkable. Organs: Surgical clips are present in the right upper quadrant which are suggestive of prior cholecystectomy. XR/XR chest 1V portable [id number] IMPRESSION: No acute cardiopulmonary process.
--- NOTE | 2022-03-01 11:26 | ECG_ITS ---
[facility] Test Date: 2022-03-01 Pat Name: Socorro Montes De Oca Department: Room: Gender: Female Design Specialist: : 1950 Requested By: Isael Castorena Order Number: [id number] Octavio MD: Giorgi Justin M.D. Measurements Intervals [place] Rate: 91 P: 86 CO: 144 QRS: 75 QRSD: 80 T: 83 QT: 358 QTc: 443 Interpretive Statements SINUS RHYTHM WITH SINUS ARRHYTHMIA POSSIBLE RIGHT VENTRICULAR CONDUCTION DELAY [RSR (QR) IN V1/V2] Compared to ECG 02/07/2022 15:33:55 Sinus tachycardia no longer present Electronically Signed On 03-01-2022 18:12:29 PSYCH THERAPIST by Giorgi Justin M.D. [id number]
[2022-03-01 11:36] LABS: Basophils # 0.1 10^3/uL (0.0-0.1); Basophils % 0.9 %; Eosinophils # 0.5 10^3/uL (0.0-0.8); Eosinophils % 7.6 %; Hematocrit 39.6 % (37.0-47.0); Hemoglobin 12.4 g/dL (11.5-15.3); Lymphocytes % 31.5 %; Mean Corpuscular HGB Conc 31.3 g/dL (30.0-36.0); Mean Corpuscular Hemoglobin 32.3 pg (28.0-34.0); Mean Corpuscular Volume 103.1 fl (81-99); Mean Platelet Volume 10.1 fL (7.4-10.4); Monocytes # 0.9 10^3/uL (0.2-0.9); Neutrophils # 2.91 10^3/uL (1.8-7.7); Neutrophils % 45.8 %; Nucleated Red Blood Cells % 0 %; Platelet Count 315 10^3/cmm (130-400); Red Blood Count 3.84 10^6/uL (4.1-5.3); Red Cell Distribution Width 14.5 % (12.1-15.1); White Blood Count 6.4 10^3/uL (4.0-10.0)
[2022-03-01 11:50] LABS: ABG PH Result 7.38 (7.35-7.45); Blood Gas Allen Test Pos; Blood Gas Operator Identificat CAK; Blood Gas Sample Site Radial, left; Blood Gas Sample Type Arterial; Oxygen Device NC
[2022-03-01 11:51] LABS: ABG PCO2 56.4 mmHg (35-45); Arterial Blood Gas Hematocrit 37.8 % (37-47); Base Excess ABG 6.8 mmol/L (-2.0-2.0); Carboxyhemoglobin 0.8 %THgb (0.4-20.1); HCO3 ABG 33.5 mmol/L (22-26); HGB O2 Sat 95.6 % (95-100); Methemoglobin 0.9 % (0.4-1.5); PO2 ABG 78.5 mmHg (80.0-100.0); Total Hemoglobin 12.3 g/dL (12-16)
[2022-03-01] MEDS: ipratropium-albuterol 3 mL Neb INHALATION (11:56)
[2022-03-01] MEDS: albuterol 2.5 mg/3 mL Neb INHALATION ×3 (12:01→16:26)
[2022-03-01 12:08] LABS: Lactic Sepsis W/Reflex 2.4 mmol/L (0.5-2.2)
[2022-03-01 12:10] LABS: Troponin(5th) Baseline 8 ng/L (0-10)
[2022-03-01 12:42] LABS: SARS Covid-2 Antigen negative (Negative)
[2022-03-01 12:47] LABS: Influenza A by IFA Negative (Negative); Influenza B by IFA Negative (Negative)
[2022-03-01 13:21] LABS: Reflex Lactate Order REFLEX LACTIC ORDERD
--- NOTE | 2022-03-01 13:29 | ECG_ITS ---
[facility] Test Date: 2022-03-01 Pat Name: Socorro Montes De Oca Department: Room: Gender: Female Human Resources Communications Manager: : 1950 Requested By: Isael Castorena Order Number: [id number] Octavio MD: Giorgi Justin M.D. Measurements Intervals [place] Rate: 93 P: 87 [place]: 143 QRS: 71 QRSD: 79 T: 80 QT: 361 QTc: 450 Interpretive Statements SINUS RHYTHM WITH SINUS ARRHYTHMIA POSSIBLE RIGHT VENTRICULAR CONDUCTION DELAY [RSR (QR) IN V1/V2] Compared to ECG 03/01/2022 11:48:35 No significant changes Electronically Signed On 03-01-2022 18:27:12 COFFEE ATTENDANT by Giorgi Justin M.D. [email or web address] TV/store/[id number]
[2022-03-01 13:56] LABS: Alanine Aminotransferase 12 U/L (0-33); Albumin Level 4.1 g/dL (3.5-5.2); Alkaline Phosphatase 62 U/L (35-105); Anion Gap 15.8 (5-19); Aspartate Amino Transferase 16 U/L (0-32); Blood Urea Nitrogen 10 mg/dL (8-23); Calcium 9.3 mg/dL (8.5-10.5); Carbon Dioxide 32 mmol/L (22-29); Chloride 99 mmol/L (98-107); Globulin 2.4 g/dL (1.3-4.6); Glucose 128 mg/dL (65-115); NT Pro B Type Natriuretic Pept 131 pg/mL (0-125); Osmolality Calculated 297 mOsm/kg (285-295); Potassium 3.8 mmol/L (3.5-5.1); Sodium 143 mmol/L (136-145); Total Bilirubin 0.4 mg/dL (0.15-1.2); Total Protein 6.5 g/dL (6.6-8.7)
[2022-03-01] MEDS: levoFLOXacin 750 mg Tablet PO (14:11)
[2022-03-01] MEDS: sodium chloride 0.9% 500 ML 999 ML IV (14:13)
[2022-03-01 14:33] LABS: Lactic Acid level (Lactate) 3.6 mmol/L (0.5-2.2); Troponin 5 2HR 7.85 ng/L (0-10)
[2022-03-01 14:38] LABS: Troponin 5 2HR Delta -0.15 ABS# (0-10)
--- NOTE | 2022-03-01 19:31 | PC.NURSE ---
PT placed in waiting room after arrival of [facility]. Pt left with home concentrator. [facility] Pt unable to transport concentrator in taxi. Taxi called for pt, pt yelling at patrons and staff. Pt placed in adjacent waiting area to reduce stimuli. Pt paying my own way God dammit. I aint no welfare person. I don't have fucking Medicare. . Pt stable upon placement in waiting area.
== END 2022-03-01 19:08 | disposition home or self-care (01) ==
PROVIDERS: Emergency Provider Emergency Medicine; PCP Family Medicine
DX: J44.1 Chronic obstructive pulmonary disease with (acute) exacerbation (principal); Z20.822 Contact with and (suspected) exposure to COVID-19; Z87.891 Personal history of nicotine dependence
CPT/HCPCS: 36415; 36600; 71045; 80053; 82805; 83605; 83880; 84484; 85025; 87040; 87426; 87804; 93005; 94640; 96360; 99285; J7040; J7613

== ENCOUNTER 2022-03-07 16:58 | Inpatient (IN) | payer MEDICARE, SELFPAY ==
[2022-03-07] VITALS (10 sets, daily range): BP systolic 125–156; BP diastolic 59–100; PULSE 81–95; RESP 13–26; TEMP 37; O2SAT 95–100; BMI 29.2; BMI 31.2
--- NOTE | 2022-03-07 17:01 | ECG_ITS ---
[facility] Test Date: 2022-03-07 Pat Name: Socorro Montes De Oca Department: Room: Gender: Female Long Term Care Administrator: : 1950 Requested By: Alex Scales Order Number: [id number] Octavio MD: Jamaal Drummond M.D. Measurements Intervals [place] Rate: 70 P: 88 [place]: 136 QRS: 74 QRSD: 79 T: 89 QT: 390 QTc: 421 Interpretive Statements SINUS RHYTHM POSSIBLE RIGHT VENTRICULAR CONDUCTION DELAY [RSR (QR) IN V1/V2] Compared to ECG 03/01/2022 13:29:08 Sinus arrhythmia no longer present Electronically Signed On 03-07-2022 17:46:14 FIXER BOARDING ROOM by Jamaal Drummond M.D. [id number]
--- NOTE | 2022-03-07 17:01 | XRR_ITS ---
PROCEDURE INFORMATION: Exam: XR Chest Exam date and time: 03/07/2022 5:08 PM Age: 71 years old Clinical indication: Shortness of breath and other: Chest pain; Additional info: Dyspnea/cough TECHNIQUE: Imaging protocol: Radiologic exam of the chest. Views: 1 view. COMPARISON: CR XR chest 1V portable [id number] 03/01/2022 11:55 AM FINDINGS: Lungs: Unremarkable. No consolidation. Pleural spaces: Unremarkable. No pleural effusion. No pneumothorax. Heart/Mediastinum: Unremarkable. No cardiomegaly. Vasculature: Advanced diffuse vascular calcification noted. Bones/joints: Unremarkable. XR/XR chest 1V portable [id number] IMPRESSION: No acute findings.
[2022-03-07] MEDS: ipratropium-albuterol 3 mL Neb INHALATION (17:11)
--- NOTE | 2022-03-07 17:27 | ED_ITS ---
HPI - SOB/Dyspnea General: Chief Complaint: Shortness of Breath/Dyspnea Stated Complaint: SOB/ COPD Time Seen by Provider: 03/07/22 17:00 Source: patient Mode of arrival: EMS History of Present Illness: HPI Narrative: 71-year-old female presents emergency room planing of cough shortness of breath. Patient was seen a week ago unfortunately she cannot get any of her medications refilled she did have worsening time breathing more and more shortness of breath. Low-grade fever increasing productive cough MD elicited complaint: shortness of breath and cough Pertinent past history: COPD Context: recent illness Timing: constant Severity: mild Exacerbating factors: exertion and coughing Relieving factors: rest and bronchodilators Known history of: COPD Associated symptoms: Reports cough; Deny abdominal pain, chest congestion, chest pain, diaphoresis, dizziness, extremity pain, fever(s), hemoptysis, lightheadedness, myalgias, nausea, orthopnea, palpitations, paresthesias, polydipsia, polyuria, rash, sense of impending doom, syncope or vomiting Treatment prior to arrival: none Review of Systems Const: Denies: fever(s), chills, fatigue, malaise or diaphoresis ENMT: Denies: throat pain, ear or mastoid pain, nasal discharge or nasal congestion Card: Denies: chest pain, palpitations, lightheadedness, syncope or orthopnea Resp: Reports: dyspnea, productive cough and wheezing; Denies: hemoptysis or chest congestion GI: Denies: abdominal pain, nausea or vomiting : Denies: flank pain, difficulty voiding, dysuria, urinary frequency or urinary urgency Musc: Denies: extremity pain Skin/Breast: Denies: rash or pruritus Neuro: Denies: dizziness Endo: Denies: polyuria or polydipsia PFSH ED PFSH: Medical History Chronic respiratory failure with hypoxia COPD (chronic obstructive pulmonary disease) Panic anxiety syndrome Surgical History History of appendectomy History of cholecystectomy History of hysterectomy Hx of tonsillectomy Social History Smoking and tobacco status: former smoker Quit status (tobacco): has quit using tobacco Year quit tobacco: 2015 - 1PPD x 40 Years Alcohol intake: never Lives independently: Yes Household members: none Current occupational status: disabled Pets and animals: Yes Pets & animals: dog(s) History of recent travel: No Current gender identity: Female Physical Exam Const: ORIENTATION/CONSCIOUSNESS: Yes awake HENMT: COMMON NORMALS: normocephalic, atraumatic and hearing grossly normal bilaterally HEAD & SCALP: normocephalic and atraumatic Resp: AUSCULTATION: rhonchi and wheezes Cardio: COMMON NORMALS: regular rate, regular rhythm and No murmurs present (Cardio) RATE: regular rate RHYTHM: regular rhythm GI: COMMON NORMALS: Soft to palpation and No hepatosplenomegaly present AUSCULTATION: Yes normoactive bowel sounds PALPATION: Yes Soft to palpation, No Tenderness to palpation present (GI), No Guarding due to palpation present (GI) and Yes No hepatosplenomegaly present Extremity: COMMON NORMALS: normal to inspection, capillary refill normal, no clubbing, cyanosis or edema, no calf tenderness and no pedal edema Skin: COMMON NORMALS: no rashes or lesions noted GENERAL SKIN EXAM: no rashes or lesions noted Course Vital Signs: Vital signs: Vital Signs Temperature 98.6 F 03/07/22 16:59 Pulse Rate 81 03/07/22 18:02 Respiratory Rate 18 03/07/22 17:09 Blood Pressure 156/79 03/07/22 17:17 Pulse Oximetry 98 03/07/22 18:02 Oxygen Delivery Me thod 03/07/22 17:17 Oxygen Flow Rate 6 03/07/22 17:17 Fraction of Inspir ed Oxygen 40 03/07/22 18:02 MDM - SOB/Dyspnea Medical Decision Making Acute hypercapnic respiratory failure exacerbation of COPD. Patient was started on BiPAP. Discussed with hospitalist orders written. Medical Records I reviewed the patient's medical records. Lab Data I reviewed the patient's lab results. Labs/Radiology: Radiology Impressions Chest X-Ray 03/07/22 17:01 IMPRESSION: No acute findings. Laboratory Results Specimen Type Arterial 03/07/22 17:27 Sample Site Radial, right 03/07/22 17:27 ABG pH 7.31 (7.35-7.45) L 03/07/22 17:27 ABG pCO2 75.3 mmHg (35-45) H* 12/20/22 17: ABG pO2 83.6 mmHg (80.0-100.0) 03/07/22 17: ABG HCO3 37.6 mmol/L (22-26) H 03/07/22 17: ABG O2 Saturation 96.7 03/07/22 17: ABG Base Excess 8.6 mmol/L (-2.0-2.0) H 03/07/22 17: Stephen Test Pos 03/07/22 17: A-a O2 Gradient 0.0 mmHg (5-10) L 03/07/22 17: Hematocrit 39.3 % (37-47) 03/07/22: Hgb O2 Saturation 95.0 % (95-100) 03/07/22: Carboxyhemoglobin 0.9 %THgb (0.4-20.1) 03/07/22: Methemoglobin 0.8 % (0.4-1.5) 03/07/22: Total Hemoglobin 12.8 g/dL (12-16) 03/07/22 17: Sodium 140.0 mmol/L (131-143) 03/07/22 17: Potassium 4.2 mmol/L (3.5-5.0) 03/07/22: Glucose 116.0 mg/dL (70-115) H 03/07/22 17: Ionized Calcium 1.2 mmol/L (1.1-1.4) 03/07/22: O2 Delivery Device Nc 03/07/22: O2 Liters/Min 4.0 % 03/07/22 17: Rubber Boots And Shoes Repairer ID [place] 03/07/22 17:27 Discharge Plan Discharge Patient Disposition: Admitted As Inpatient Clinical Impression: Acute on chronic respiratory failure with hypoxia and hypercapnia, Acute exacerbation of chronic obstructive airways disease Condition: Stable Prescriptions: No Action budesonide-formoterol [Symbicort] 160-4.5 mcg/actuation HFA aerosol inhaler 2 puff INHALATION BID albuterol sulfate [Ventolin HFA] 90 mcg/actuation HFA aerosol inhaler 2 puff INHALATION Q6H PRN (Reason: Shortness Of Breath) clonazepam 1 mg tablet 1 mg PO QID PRN (Reason: Anxiety) hydrocodone-acetaminophen 10-325 mg Tablet 1 - 2 tab PO QID PRN (Reason: Pain) ipratropium-albuterol 0.5 mg-3 mg(2.5 mg base)/3 mL solution for nebulization 3 ml inhalation Q4H PRN (Reason: shortness of breath or wheezing) Qty: 180 0RF Rx Instructions: until breathing returns to target peak flow/parameters levothyroxine 125 mcg tablet 125 mcg PO DAILY levofloxacin 750 mg tablet 750 mg PO Q24H 10 Days Qty: 10 0RF albuterol sulfate 90 mcg/actuation HFA aerosol inhaler 2 inh inhalation Q4H PRN (Reason: shortness of breath or wheezing) Qty: 8.5 2RF Referrals: Carson Murray DO [Primary Care Provider] - Patient Instructions: Opioid Safety, Pain Management Coding Level of Care Code ED Plywood Scarfer Tender for Ji Melgar
[2022-03-07 17:38] LABS: ABG PCO2 75.3 mmHg (35-45); ABG PH Result 7.31 (7.35-7.45); Arterial Blood Gas Hematocrit 39.3 % (37-47); Base Excess ABG 8.6 mmol/L (-2.0-2.0); Blood Gas Allen Test Pos; Blood Gas Operator Identificat WALCI; Blood Gas Sample Site Radial, right; Blood Gas Sample Type Arterial; Carboxyhemoglobin 0.9 %THgb (0.4-20.1); HCO3 ABG 37.6 mmol/L (22-26); Ionized Calcium Level - ABG 1.2 mmol/L (1.1-1.4); Methemoglobin 0.8 % (0.4-1.5); Oxygen Device NC; Oxygen Saturation ABG 96.7; PO2 ABG 83.6 mmHg (80.0-100.0); Potassium Level - ABG 4.2 mmol/L (3.5-5.0); Total Hemoglobin 12.8 g/dL (12-16)
--- NOTE | 2022-03-07 19:06 | PM.HP ---
Providers/Chief Complaint Primary Care Provider: Carson Murray DO Chief Complaint: SOB/ COPD History of Present Illness Socorro Montes De Oca is a 71 year old female who was on hospice for end-stage COPD which she revoked a few months ago now she is full code, she lives alone, does not want her family to be notified at any cost even after cardiac arrest, presented to the hospital worsening of shortness of breath. At baseline she is using 6 L of oxygen, no recent fever, chest pain, productive cough, diarrhea or vomiting. She decided to come to the hospital when her shortness of breath got worse today. In the ER she has been diagnosed with acute on chronic hypercapnic respiratory failure. She is does not smoke or drink alcohol. Chest x-ray is unremarkable. Her symptoms started gradually and because of acute worsening she decided to come to the hospital she is denying vital/flulike symptoms. She is vaccinated for COVID-19. Review of Systems Const: Reports: chills and body aches Eyes: Denies: change in vision ENMT: Denies: throat pain Card: Denies: chest pain Resp: Reports: dyspnea GI: Denies: abdominal pain : Denies: flank pain Musc: Denies: neck pain Skin/Breast: Denies: rash Neuro: Denies: headache(s) Psych: Reports: anxiety Endo: Denies: polyuria Arnav/Lymph: Denies: easy bruising All/Imm: Denies: urticaria Medications/Allergies Home Medications Medication Instructions Recorded Confirmed Last Taken Type albuterol sulfate 90 mcg/actuation 2 puff inhalation Q6H PRN 08/21/19 03/01/22 Unknown History aerosol inhaler (Ventolin HFA) Shortness Of Breath budesonide-formoterol HFA 160 2 puff inhalation BID 08/21/19 03/01/22 02/28/22 History mcg-4.5 mcg/actuation aerosol inhaler (Symbicort) ipratropium 0.5 mg-albuterol 3 mg 3 ml inhalation Q4H PRN shortness 11/29/21 03/01/22 Unknown Rx (2.5 mg base)/3 mL nebulization of breath or wheezing #180 mL soln clonazepam 1 mg tablet 1 mg PO QID PRN Anxiety 02/07/22 03/01/22 Unknown History hydrocodone 10 mg-acetaminophen 1 - 2 tab PO QID PRN Pain 02/07/22 03/01/22 Unknown History 325 mg tablet albuterol sulfate 90 mcg/actuation 2 inh inhalation Q4H PRN shortness 03/01/22 Unknown Rx aerosol inhaler of breath or wheezing #8.5 grams levofloxacin 750 mg tablet 750 mg PO Q24H 10 days #10 tabs 03/01/22 Unknown Rx levothyroxine 125 mcg tablet 125 mcg PO DAILY 03/01/22 03/01/22 02/28/22 History Allergies Allergy/AdvReac Type Severity Reaction Status Date / Time olanzapine [From Zyprexa] Allergy Severe edema Verified 07/05/20 13:05 PFSH Acute PFSH: Medical History Chronic respiratory failure with hypoxia COPD (chronic obstructive pulmonary disease) Panic anxiety syndrome Surgical History History of appendectomy History of cholecystectomy History of hysterectomy Hx of tonsillectomy Social History Smoking and tobacco status: former smoker Quit status (tobacco): has quit using tobacco Year quit tobacco: 2015 - 1PPD x 40 Years Alcohol intake: never Lives independently: Yes Household members: none Current occupational status: disabled Pets and animals: Yes Pets & animals: dog(s) History of recent travel: No Current gender identity: Female Vitals/I&O/Wt Last Vital Signs Temp 98.6 F 03/07/22 16:59 Pulse 81 03/07/22 18:02 Resp 18 03/07/22 17:09 BP 125/59 03/07/22 18:30 Pulse Ox 100 03/07/22 18:30 O2 Del Method 03/07/22 18:30 O2 Flow Rate 6 03/07/22 17:17 FiO2 40 03/07/22 18:02 Weight last 48 hrs Weight 68.039 kg Physical Exam Narrative: Clinically patient is euvolemic Currently on BiPAP Awake and alert Pleasant and cooperative S1, S2 No signs of heart failure Abdomen soft S1, S2 Nonfocal neuro exam EOMI, PERRLA Nonfocal neuro exam Bilateral chest of breath sounds no active wheezing Appropriate mood and affect A&P Assessment and plan (1) COPD (chronic obstructive pulmonary disease): (2) Acute exacerbation of chronic obstructive airways disease: (3) Anxiety disorder: (4) Bipolar 1 disorder: (5) Acute and chronic respiratory failure with hypercapnia: Plan Acute on chronic hypercapnic respiratory failure At baseline uses 6 L of oxygen No active vital symptoms Will check her for flu, she is vaccinated for COVID-19 She is afebrile Seems to be gradual decline of her underlying end-stage COPD She is full code She does not want her family to be notified, she is stating that she has a package which should be transferred to the home if she passes away, she lives with her 2 dogs Her x-ray is unremarkable I will start her on diet in the morning we will keep her on BiPAP overnight Check D-dimer, viral panel Will give her azithromycin for anti-inflammatory effect She will benefit from Roflumilast for end-stage COPD She will need pulmonary rehab and pulmonary consultation at the time of discharge Attestations Medical Necessity Statement*: Patient discharged within 48 hours will need management with BiPAP for her hypercapnic respiratory failure Time Spent in Patient Care: 40 Coding Level of Care Code Acute Director Of Materials Management for Ji Fwmalachi Diagnoses COPD (chronic obstructive pulmonary disease) J44.9 Acute exacerbation of chronic obstructive airways disease J44.1 Anxiety disorder F41.9 Bipolar 1 disorder F31.9 Acute and chronic respiratory failure with hypercapnia J96.22
[2022-03-07 19:52] LABS: Basophils % 0.3 %; Eosinophils # 0.2 10^3/uL (0.0-0.8); Eosinophils % 1.9 %; Hematocrit 41.4 % (37.0-47.0); Hemoglobin 12.7 g/dL (11.5-15.3); Lymphocytes # 0.7 10^3/uL (0.8-4.8); Lymphocytes % 5.7 %; Mean Corpuscular HGB Conc 30.7 g/dL (30.0-36.0); Mean Corpuscular Hemoglobin 31.8 pg (28.0-34.0); Mean Corpuscular Volume 103.5 fl (81-99); Monocytes # 0.2 10^3/uL (0.2-0.9); Monocytes % 1.7 %; Neutrophils # 11.42 10^3/uL (1.8-7.7); Neutrophils % 89.8 %; Nucleated Red Blood Cells % 0 %; Platelet Count 354 10^3/cmm (130-400); White Blood Count 12.7 10^3/uL (4.0-10.0)
[2022-03-07 20:07] LABS: D Dimer 0.45 ug/mIFEU (0-0.59)
[2022-03-07 20:20] LABS: Anion Gap 8.4 (5-19); Blood Urea Nitrogen 21 mg/dL (8-23); Calcium 9.7 mg/dL (8.5-10.5); Carbon Dioxide 40 mmol/L (22-29); Chloride 92 mmol/L (98-107); Glucose 132 mg/dL (65-115); Osmolality Calculated 287 mOsm/kg (285-295); Potassium 4.4 mmol/L (3.5-5.1); Sodium 136 mmol/L (136-145)
[2022-03-07 20:25] LABS: Procalcitonin 0.05 ng/mL (0-0.5)
[2022-03-07] MEDS: enoxaparin 40 mg/0.4 mL Syringe SUBCUT (21:40)
[2022-03-07] MEDS: sodium chloride 0.9% 1,000 ML 100 ML IV (21:41)
[2022-03-07 21:48] LABS: Adenovirus Not Detected (NOT DETECT); Chlamydia Pneumoniae Not Detected (NOT DETECT); Coronavirus 229E,HKU1,NL63,OC4 Not Detected (NOT DETECT); Human Metapneumovirus Not Detected (NOT DETECT); Human Rhinovirus/Enterovirus Not Detected (NOT DETECT); Influenza A Not Detected (NOT DETECT); Influenza A H1 Not Detected (NOT DETECT); Influenza A H1-2009 Not Detected (NOT DETECT); Influenza A H3 Not Detected (NOT DETECT); Influenza B Not Detected (NOT DETECT); Mycoplasma Pneumoniae Not Detected (NOT DETECT); Parainfluenza Virus Type 1 Not Detected (NOT DETECT); Parainfluenza Virus Type 2 Not Detected (NOT DETECT); Parainfluenza Virus Type 3 Not Detected (NOT DETECT); Parainfluenza Virus Type 4 Not Detected (NOT DETECT); Respiratory Syncytial Virus A Not Detected (NOT DETECT); Respiratory Syncytial Virus B Not Detected (NOT DETECT); SARS-COV-2 Not Detected (NOT DETECT)
[2022-03-08] VITALS (15 sets, daily range): BP systolic 123–197; BP diastolic 64–82; PULSE 71–113; RESP 12–32; TEMP 36.1–36.8; O2SAT 96–100
[2022-03-08] MEDS: morphine 4 mg/mL SDV 1 mL 2 MG IVP (04:07)
--- NOTE | 2022-03-08 04:13 | PC.NURSE ---
Patient became agitated and stated that she could not breathe, despite being on bipap and satting 100%. Respiratory entered the room and the patient asked for the bipap to be taken off. 6L NC was placed on the patient but only for a short time. Patient placed back on bipap but still anxious. Order taken from Dr Oquendo for 2mg morphine IVP to help settle the patient. Patient now resting in bed with three side rails up, call light within reach.
[2022-03-08 04:32] LABS: Basophils % 0.1 %; Hematocrit 43.1 % (37.0-47.0); Hemoglobin 13.5 g/dL (11.5-15.3); Lymphocytes # 0.7 10^3/uL (0.8-4.8); Lymphocytes % 8.2 %; Mean Corpuscular HGB Conc 31.3 g/dL (30.0-36.0); Mean Corpuscular Hemoglobin 32.6 pg (28.0-34.0); Mean Corpuscular Volume 104.1 fl (81-99); Mean Platelet Volume 10.1 fL (7.4-10.4); Monocytes # 0.1 10^3/uL (0.2-0.9); Neutrophils % 89.8 %; Nucleated Red Blood Cells % 0 %; Platelet Count 433 10^3/cmm (130-400); Red Blood Count 4.14 10^6/uL (4.1-5.3); Red Cell Distribution Width 13.9 % (12.1-15.1); White Blood Count 8.1 10^3/uL (4.0-10.0)
[2022-03-08 04:37] LABS: C Reactive Protein 5.2 mg/L (0.0-4.9); Magnesium 2.3 mg/dL (1.7-2.3); Phosphorus 2.8 mg/dL (2.5-4.5)
[2022-03-08 05:01] LABS: Blood Urea Nitrogen 21 mg/dL (8-23); Calcium 9.4 mg/dL (8.5-10.5); Carbon Dioxide 34 mmol/L (22-29); Chloride 93 mmol/L (98-107); Glucose 142 mg/dL (65-115); Osmolality Calculated 289 mOsm/kg (285-295); Sodium 137 mmol/L (136-145)
[2022-03-08] MEDS: HYDROcodone-acetaminophen 10-325 mg Tablet 1 TAB PO (05:01)
--- NOTE | 2022-03-08 05:06 | PC.NURSE ---
Patient requested hydrocodone. This nurse gave the patient one 10-325 mg of hydrocodone and when the patient was handed the pill, the patient stated, Where's the other one? This nurse told the patient that the order was only one pill. The patient then stated that this isn't a damn enough and demanded to know who the doctor was who put in the order. This nurse confirmed that her dose at home is also a 10-325. Patient repeatedly kept stating that she couldn't breathe despite satting 100% on bipap. Patient also refused respiratory's ABG.
[2022-03-08 05:20] LABS: Anion Gap 14.8 (5-19); Potassium 4.8 mmol/L (3.5-5.1)
[2022-03-08] MEDS: azithromycin 250 mg Tablet 500 MG PO (08:50)
[2022-03-08] MEDS: roflumilast 500 mcg Tablet PO (08:50)
[2022-03-08] MEDS: sodium chloride 0.9% 1,000 ML 100 ML IV ×2 (08:51→20:59)
--- NOTE | 2022-03-08 09:13 | PC.PHAR ---
pt states she takes care of her own medications-pt states she is not taking protonix 40mg daily filled 03/02/22 30d/s-pt states she dced her levothyroxine 125mcg daily last filled 11/11/21 30d/s jimenez cutter states rx has refills pt states she dced because she thought she didnt need it anymore-notes are made in the pharmacy comments-
[2022-03-08 09:29] LABS: Basophils % 0.2 %; Hematocrit 43.4 % (37.0-47.0); Hemoglobin 13.3 g/dL (11.5-15.3); Lymphocytes # 0.8 10^3/uL (0.8-4.8); Lymphocytes % 9.7 %; Mean Corpuscular HGB Conc 30.6 g/dL (30.0-36.0); Mean Corpuscular Hemoglobin 31.7 pg (28.0-34.0); Mean Corpuscular Volume 103.3 fl (81-99); Mean Platelet Volume 9.8 fL (7.4-10.4); Monocytes # 0.2 10^3/uL (0.2-0.9); Monocytes % 1.7 %; Neutrophils # 7.63 10^3/uL (1.8-7.7); Neutrophils % 87.7 %; Nucleated Red Blood Cells % 0 %; Platelet Count 381 10^3/cmm (130-400); Red Cell Distribution Width 13.8 % (12.1-15.1); White Blood Count 8.7 10^3/uL (4.0-10.0)
[2022-03-08 09:58] LABS: Anion Gap 13.5 (5-19); Blood Urea Nitrogen 20 mg/dL (8-23); Carbon Dioxide 32 mmol/L (22-29); Chloride 95 mmol/L (98-107); Glucose 130 mg/dL (65-115); Osmolality Calculated 286 mOsm/kg (285-295); Potassium 4.5 mmol/L (3.5-5.1); Sodium 136 mmol/L (136-145)
[2022-03-08] MEDS: HYDROcodone-acetaminophen 10-325 mg Tablet PO ×3 (10:46→21:00)
--- NOTE | 2022-03-08 12:49 | PC.CHAP ---
Pastoral Care Encounter/Spiritual Assessment Type of Contact [] Declined vaccinator visit [] Patient/Family/Request visit [] Outpatient visit [] Follow-up visit [] Physician referral [] Code/Alert [x] Routine visit [] Staff referral [] Actively dying [] Patient sleeping [] Family support [] [] Out of room [] Palliative care [] [] Receiving care in room [] Pre-surgical visit [] Trauma [] Long length of stay [] ICU visit [] Other: Relational/Emotional Strength [x] Patient feels connected with others/family/visitors/staff [] Distress [] Loneliness/isolation [] Abandonment Spirituality of Patient [x] Person of Rylee [] Attends Presybeterian of their Rylee [x]x Believes in Prayer [] Reads Bible or Zoroastrian materials [] There are Spiritual issues to be addressed Location Manager Interventions [x] Prayer [x] Active listening [x] Non-anxious presence [] Spiritual/emotional support [] Crisis/trauma care [] Spiritual counseling [] Bereavement support [] Provided bereavement packet [] Provided Bible/devotional materials [] Provided toy/stuffed animal, coloring book to patient or family member [] Provided Communion [] Anointing/Peggs [] Salvation [x] Completed spiritual assessment [] Other: Impact on Illness or Injury [] Angry [] Fearful [] Anxious [] Often cries [] Exhaustion [] Unable to work [] Unable to attend evangelical [] Unable to walk/stand [] Unable to read [] Unable to drive [] Unable to eat/drink [] Unable to sleep [] Unable to be with family [] Patient intubated [] Other: Summary Time spent with patient 10 min
--- NOTE | 2022-03-08 13:16 | PM.PN ---
Subjective Subjective: Sitting up in bed appearing comfortable at this time on BiPAP. Earlier she had episodes of desaturation due to anxiety. Patient states she is in a lot of pain all over her body and she takes 2 hydrocodone at home and she is not getting the same dose here. Patient quite upset about this. She wants her pain medication to be fixed. She also refused to have ABG done this morning. She says she uses Symbicort and albuterol at home. Vitals/I&O/Wt Last Vital Signs Temp 97.0 F L 03/08/22 11:57 Pulse 88 03/08/22 11:57 Resp 17 03/08/22 11:57 BP 126/64 03/08/22 11:57 Pulse Ox 100 03/08/22 11:57 O2 Del Method 03/08/22 11:57 O2 Flow Rate 6 03/08/22 11:57 FiO2 50 03/08/22 09:30 03/07/22 03/08/22 03/08/22 22:59 06:59 14:59 Intake Total 0 / 0 0 / 0 1000 / 1000 Output Total 400 / 400 Balance 0 / 0 0 / 0 600 / 600 Weight last 48 hrs Weight 72.631 kg Weight 68.039 kg Physical Exam Narrative: Clinically patient is euvolemic Currently on BiPAP Awake and alert Pleasant and cooperative S1, S2 No signs of heart failure Abdomen soft S1, S2 Nonfocal neuro exam EOMI, PERRLA Nonfocal neuro exam Bilateral chest of breath sounds no active wheezing Appropriate mood and affect Data 03/08/22 09:20 03/08/22 09:20 A&P Assessment and plan (1) COPD (chronic obstructive pulmonary disease): (2) Acute exacerbation of chronic obstructive airways disease: (3) Anxiety disorder: (4) Bipolar 1 disorder: (5) Acute and chronic respiratory failure with hypercapnia: Plan Acute on chronic hypercapnic respiratory failure At baseline uses 6 L of oxygen No active vital symptoms She is vaccinated for COVID-19 She is afebrile Seems to be gradual decline of her underlying end-stage COPD She is full code She does not want her family to be notified, she is stating that she has a package which should be transferred to the home if she passes away, she lives with her 2 dogs Her x-ray is unremarkable Continue on diet. COVID test is negative. Continue azithromycin for anti-inflammatory effect Roflumilast added. She will need pulmonary rehab and pulmonary consultation at the time of discharge Patient no longer on hospice services. She is a full code. Discharge in a.m. most likely as long as patient continues to do well. Attestations Medical Necessity Statement*: Patient to most likely discharge in the morning as long as she continues to do well. Patient still on BiPAP and had an episode of desaturation this morning as well. She will need continued monitoring in the hospital today. Coding Level of Care Code Acute Scrub Wheel Operator for Ji Zepedad Diagnoses COPD (chronic obstructive pulmonary disease) J44.9 Acute exacerbation of chronic obstructive airways disease J44.1 Anxiety disorder F41.9 Bipolar 1 disorder F31.9 Acute and chronic respiratory failure with hypercapnia J96.22
--- NOTE | 2022-03-08 16:43 | PC.NURSE ---
PATIENT REQUESTED PAIN MEDICATION. PATIENT NOTIFIED THAT IT WAS TOO EARLY FOR ANOTHER DOSE OF HYDROCODONE. PATIENT BECAME VERY IRRITATED AND SAID SHE WANTED TO LEAVE. DR. BOYCE NOTIFIED AND AGREED TO DISCHARGE PATIENT SINCE SHE WAS DOING WELL ON HER HOME OXYGEN ORDER. PATIENT WAS THEN ASSISTED TO THE BEDSIDE COMMODE. UPON EXERTION PATIENT BECAME SEVERELY SHORT OF BREATH, AND WAS TACHYPENAIC. WHEN PATIENT RETURNED TO BED, SHE WAS UNABLE TO CATCH HER BREATH. DR. BOYCE NOTIFIED AND DISCHARGE ORDER WAS CANCELED.
[2022-03-08] MEDS: ipratropium-albuterol 3 mL Neb INHALATION (20:39)
--- NOTE | 2022-03-08 22:40 | PC.RESP ---
pt placed on 2lpm nc. stated she wears 6lpm at home. pt sats dropped to 83% increased o2 to 6lpm as per home settings, sats increased to 90% pt still complained on increased sob placed back on bipap for overnight p-ox study. bipap on at 2230
[2022-03-09] VITALS (14 sets, daily range): BP systolic 121–177; BP diastolic 67–97; PULSE 67–105; RESP 16–22; TEMP 36.6–36.8; O2SAT 88–99
[2022-03-09] MEDS: HYDROcodone-acetaminophen 10-325 mg Tablet PO ×5 (02:40→23:51)
[2022-03-09 06:26] LABS: Anion Gap 11.1 (5-19); Blood Urea Nitrogen 13 mg/dL (8-23); Calcium 9.2 mg/dL (8.5-10.5); Carbon Dioxide 32 mmol/L (22-29); Chloride 100 mmol/L (98-107); Glucose 141 mg/dL (65-115); Osmolality Calculated 290 mOsm/kg (285-295); Potassium 4.1 mmol/L (3.5-5.1); Sodium 139 mmol/L (136-145)
--- NOTE | 2022-03-09 08:34 | XR_ITS ---
WS: [id number] Exam: XR chest 1V portable [id number] Date/Time of Exam: 03/09/2022 8:40 AM Reason For Exam: follow up Comparison 03/07/2022. The lungs are clear and fully inflated. Normal cardiomediastinal silhouette. No pleural effusions. Re gional bony elements are intact. XR/XR chest 1V portable [id number] IMPRESSION: 1. No acute cardiopulmonary finding.
[2022-03-09] MEDS: sodium chloride 0.9% 1,000 ML 100 ML IV ×2 (08:56→17:18)
[2022-03-09] MEDS: azithromycin 250 mg Tablet 500 MG PO (08:56)
[2022-03-09] MEDS: ipratropium-albuterol 3 mL Neb INHALATION ×3 (11:23→19:49)
--- NOTE | 2022-03-09 13:09 | PM.PN ---
Subjective Subjective: no acute events overnight gets very short of breath on exertion and oxygen goes upto 6L she is at her baseline. overnight pulse ox ordered she is requesting bipap for home. Vitals/I&O/Wt Last Vital Signs Temp 98.0 F 03/09/22 11:00 Pulse 85 03/09/22 11:29 Resp 22 H 03/09/22 11:29 BP 169/97 03/09/22 11:00 Pulse Ox 91 03/09/22 11:29 O2 Del Method 03/09/22 11:29 O2 Flow Rate 2 03/09/22 11:29 FiO2 50 03/08/22 20:40 03/08/22 03/09/22 03/09/22 22:59 06:59 14:59 Intake Total 1600 / 2600 240 / 2840 1120 / 1120 Output Total 200 / 200 Balance 1600 / 2200 240 / 2440 920 / 920 Weight last 48 hrs Weight 72.631 kg Weight 68.039 kg Physical Exam Narrative: Clinically patient is euvolemic on 3L NC Awake and alert Pleasant and cooperative S1, S2 No signs of heart failure Abdomen soft S1, S2 Nonfocal neuro exam EOMI, PERRLA Nonfocal neuro exam Bilateral chest of breath sounds no active wheezing Appropriate mood and affect Data 03/08/22 09:20 03/09/22 04:44 A&P Assessment and plan (1) COPD (chronic obstructive pulmonary disease): (2) Acute exacerbation of chronic obstructive airways disease: (3) Anxiety disorder: (4) Bipolar 1 disorder: (5) Acute and chronic respiratory failure with hypercapnia: Plan Acute on chronic hypercapnic respiratory failure At baseline uses 6 L of oxygen No active vital symptoms She is vaccinated for COVID-19 She is afebrile Seems to be gradual decline of her underlying end-stage COPD She is full code She does not want her family to be notified, she is stating that she has a package which should be transferred to the home if she passes away, she lives with her 2 dogs Her x-ray is unremarkable Continue on diet. COVID test is negative. Continue azithromycin for anti-inflammatory effect Roflumilast added. She will need pulmonary rehab and pulmonary consultation at the time of discharge Patient no longer on hospice services. She is a full code. order performist BID pulmicort BID Revefenacin once daily at disharge try to setup bipap at discharge case management working on it. Will need pulm rehab at in. Attestations Medical Necessity Statement*: will need to setup bipap for home. Coding Level of Care Code Acute Mitochondrial Disorders Counselor for Chg Fwd Diagnoses COPD (chronic obstructive pulmonary disease) J44.9 Acute exacerbation of chronic obstructive airways disease J44.1 Anxiety disorder F41.9 Bipolar 1 disorder F31.9 Acute and chronic respiratory failure with hypercapnia J96.22
[2022-03-09] MEDS: CLONazepam 1 mg Tablet PO ×2 (14:16→21:53)
[2022-03-09] MEDS: budesonide 0.5 mg/2 mL Neb INHALATION (19:49)
[2022-03-10 00:06] VITALS: PULSE 71; O2SAT 97
[2022-03-10] MEDS: ipratropium-albuterol 3 mL Neb INHALATION (00:07)
[2022-03-10 03:04] VITALS: BP 136/71; PULSE 65; RESP 16; TEMP 36.8; O2SAT 96
[2022-03-10] MEDS: CLONazepam 1 mg Tablet PO ×2 (03:16→08:39)
[2022-03-10] MEDS: HYDROcodone-acetaminophen 10-325 mg Tablet PO ×3 (03:16→12:50)
[2022-03-10] MEDS: sodium chloride 0.9% 1,000 ML 100 ML IV (05:15)
[2022-03-10 07:53] VITALS: BP 152/84; PULSE 56; RESP 18; TEMP 36.6; O2SAT 98
[2022-03-10 08:00] VITALS: PULSE 53; PULSE 55; RESP 12; O2SAT 99
[2022-03-10] MEDS: azithromycin 250 mg Tablet 500 MG PO (08:39)
--- NOTE | 2022-03-10 09:28 | PM.DCS ---
Discharge Providers Date of Admission: 03/08/22 13:40 Date of Discharge: March 08, 2022 Attending Provider at Admission: Roopa Hearn MD Attending Provider at Discharge: Roopa Hearn MD Primary Care Provider: Carson Murray DO Diagnoses at Discharge Discharge Diagnosis (1) COPD (chronic obstructive pulmonary disease): Status: Acute (2) Acute exacerbation of chronic obstructive airways disease: Status: Acute (3) Anxiety disorder: Status: Acute (4) Bipolar 1 disorder: Status: Acute (5) Acute and chronic respiratory failure with hypercapnia: Status: Acute Reason for Visit Reason for Visit: SOB/ COPD Brief History: Socorro Montes De Oca is a 71 year old female who was on hospice for end-stage COPD which she revoked a few months ago now she is full code, she lives alone, does not want her family to be notified at any cost even after cardiac arrest, presented to the hospital worsening of shortness of breath.? At baseline she is using 6 L of oxygen, no recent fever, chest pain, productive cough, diarrhea or vomiting.? She decided to come to the hospital when her shortness of breath got worse today.? In the ER she has been diagnosed with acute on chronic hypercapnic respiratory failure.? She is does not smoke or drink alcohol.? Chest x-ray is unremarkable.? Her symptoms started gradually and because of acute worsening she decided to come to the hospital she is denying vital/flulike symptoms.? She is vaccinated for COVID-19. Hospital Course Hospital Course Patient initially presented for COPD exacerbation. Baseline uses 6 L of oxygen [id number]. She is vaccinated for COVID-19. Patient does have end-stage COPD and used to be on hospice prior however changed herself to full code. She requires BiPAP on and off. Patient has been placed on Daliresp 500 daily. 500 mg of azithromycin for 5 days for anti-inflammatory effect. I will also prescribe PerforomistYenni revefenacin at discharge. Case management working on obtaining BiPAP for the patient. Patient will be discharged home in stable condition. She says she does not get around very much and when she does she does get short of breath therefore mostly sits around. She will be set up with home health as well. Patient will need pulmonary consultation at time of discharge for further follow-up. All questions answered. Patient agreeable to go home. She will be placed on a prednisone taper and then to take prednisone 10 daily. Appears very comfortable today. Bipap will be setup for patient today. She will be setup with cab and discharged home safely. Pt agreeable to be discharged. Physical Exam Narrative: General: Alert oriented x3, patient seen laying in bed appearing comfortable at this time. On 3 L nasal cannula. HEENT: Normocephalic, atraumatic, EOMI, breathing after breathing normally. Cardio: Regular rate rhythm, normal S1-S2, Respiratory: Clear to auscultation bilaterally mild rhonchi at times but they do clear with breathing treatments. GI: Abdomen soft, nontender, nondistended, bowel sounds + Behavior: Appropriate and cooperative Extremities: No bilateral lower extremity edema, no cyanosis Discharge Data Studies Completed and Pending Completed Studies During Hospitalization Category Date Time Status XR chest 1V portable [id number] Stat Exams 03/07/22 17:01 Completed Pending at discharge Category Date Time Status Arterial Blood Gas Full AM LABS Lab 03/09/22 04:00 Ordered Arterial Blood Gas W/O Coox Stat Lab 03/07/22 19:44 Ordered Basic Metabolic Panel AM LABS Lab 03/09/22 04:00 Ordered Radiology Impressions Chest X-Ray 03/07/22 17:01 IMPRESSION: No acute findings. Laboratory Results WBC 8.7 10^3/uL (4.0-10.0) 03/08/22 09:20 RBC 4.20 10^6/uL (4.1-5.3) 03/08/22 09:20 Hgb 13.3 g/dL (11.5-15.3) 03/08/22 09:20 Hct 43.4 % (37.0-47.0) 03/08/22 09:20 MCV 103.3 fl (81-99) H 03/08/22 09:20 MCH 31.7 pg (28.0-34.0) 03/08/22 09:20 MCHC 30.6 g/dL (30.0-36.0) 03/08/22 09:20 RDW 13.8 % (12.1-15.1) 03/08/22 09:20 Plt Count 381 10^3/cmm (130-400) 03/08/22 09:20 MPV 9.8 fL (7.4-10.4) 03/08/22 09:20 Neut % (Auto) 87.7 % 03/08/22 09:20 Lymph % (Auto) 9.7 % 03/08/22 09:20 [place] % (Auto) 1.7 % 03/08/22 09:20 Eos % (Auto) 0.0 % 03/08/22 09:20 Baso % (Auto) 0.2 % 03/08/22 09:20 Neut # (Auto) 7.63 10^3/uL (1.8-7.7) 03/08/22 09:20 Lymph # (Auto) 0.8 10^3/uL (0.8-4.8) 03/08/22 09:20 [place] # (Auto) 0.2 10^3/uL (0.2-0.9) 03/08/22 09:20 Eos # (Auto) 0.0 10^3/uL (0.0-0.8) 03/08/22 09:20 Baso # (Auto) 0.0 10^3/uL (0.0-0.1) 03/08/22 09:20 Nucleated RBC % (auto) 0 % 03/08/22 09:20 Nucleated RBCs # 0.0 /100WBC 03/08/22 09:20 D-Dimer 0.45 ug/mIFEU (0-0.59) 03/07/22 19:48 Specimen Type Arterial 03/07/22 17:27 Sample Site Radial, right 03/07/22 17:27 ABG pH 7.31 (7.35-7.45) L 03/07/22 17: ABG pCO2 75.3 mmHg (35-45) H* 03/07/22 17:27 ABG pO2 83.6 mmHg (80.0-100.0) 03/07/22 17:27 ABG HCO3 37.6 mmol/L (22-26) H 03/07/22 17: ABG O2 Saturation 96.7 03/07/22 17:27 ABG Base Excess 8.6 mmol/L (-2.0-2.0) H 03/07/22 17:27 Stephen Test Pos 03/07/22 17:27 A-a O2 Gradient 0.0 mmHg (5-10) L 03/07/22 17:27 Hematocrit 39.3 % (37-47) 03/07/22 17:27 Hgb O2 Saturation 95.0 % (95-100) 03/07/22 17:27 Carboxyhemoglobin 0.9 %THgb (0.4-20.1) 03/07/22 17:27 Methemoglobin 0.8 % (0.4-1.5) 03/07/22 17:27 Total Hemoglobin 12.8 g/dL (12-16) 03/07/22 17:27 Sodium 140.0 mmol/L (131-143) 03/07/22 17:27 Potassium 4.2 mmol/L (3.5-5.0) 03/07/22 17:27 Glucose 116.0 mg/dL (70-115) H 03/07/22 17:27 Ionized Calcium 1.2 mmol/L (1.1-1.4) 03/07/22 17:27 O2 Delivery Device Nc 03/07/22 17:27 O2 Liters/Min 4.0 % 03/07/22 17:27 Gas And Oil Checker ID [place] 03/07/22 17:27 Sodium 136 mmol/L (136-145) 03/08/22 09:20 Potassium 4.5 mmol/L (3.5-5.1) 03/08/22 09:20 Chloride 95 mmol/L (98-107) L 03/08/22 09:20 Carbon Dioxide 32 mmol/L (22-29) H 03/08/22 09:20 Anion Gap 13.5 (5-19) 03/08/22 09:20 BUN 20 mg/dL (8-23) 03/08/22 09:20 Creatinine 0.5 mg/dL (0.5-0.9) 03/08/22 09:20 GFR Calculation Not Reportable 03/08/22 09:20 Glucose 130 mg/dL (65-115) H 03/08/22 09:20 Calculated Osmolality 286 mOsm/kg (285-295) 03/08/22 09:20 Calcium 9.0 mg/dL (8.5-10.5) 03/08/22 09:20 Phosphorus 2.8 mg/dL (2.5-4.5) 03/08/22 03:53 Magnesium 2.3 mg/dL (1.7-2.3) 03/08/22 03:53 C-Reactive Protein 5.2 mg/L (0.0-4.9) H 03/08/22 03:53 Procalcitonin 0.05 ng/mL (0-0.5) 03/07/22 19:48 TSH 6.90 uIU/mL (0.27-4.20) H 03/07/22 19:48 Coronavirus 229E (PCR) Not detected (NOT DETECT) 03/07/22 19:57 SARS-CoV-2 (PCR) Not detected (NOT DETECT) 03/07/22 19:57 Vitals Last Vital Signs Temp 97.0 F L 03/08/22 11:57 Pulse 88 03/08/22 11:57 Resp 17 03/08/22 11:57 BP 126/64 03/08/22 11:57 Pulse Ox 100 03/08/22 11:57 O2 Del Method 03/08/22 11:57 O2 Flow Rate 6 03/08/22 11:57 FiO2 50 03/08/22 09:30 Discharge Plan Discharge Patient Disposition: Home Health Service Condition: Stable Prescriptions: New azithromycin 250 mg Tablet 500 mg PO DAILY 5 Days Qty: 5 0RF Stool Softener-Laxative 8.6-50 mg Tablet 1 tab PO DAILY 14 Days Qty: 1 0RF levothyroxine 125 mcg Tablet 125 mcg PO DAILY 30 Days Qty: 30 0RF escitalopram oxalate 10 mg Tablet 10 mg PO DAILY 30 Days Qty: 30 0RF Daliresp 500 mcg Tablet 500 mcg PO DAILY 30 Days Qty: 30 0RF Spiriva Respimat 2.5 mcg/actuation mist 2 inh inhalation Q24H 30 Days Qty: 4 0RF Pulmicort 0.5 mg/2 mL suspension for nebulization 0.25 mg inhalation BID 30 Days Qty: 60 0RF prednisone 10 mg tablet 10 mg PO DAILY Qty: 60 0RF Rx Instructions: 40 mg x 3 D 20 mg x 3 D 10 mg x daily formoterol fumarate [Perforomist] 20 mcg/2 mL solution for nebulization 2 ml inhalation BID 30 Days Qty: 120 0RF Yupelri 175 mcg/3 mL solution for nebulization 175 mcg inhalation DAILY 30 Days Qty: 90 0RF Continued budesonide-formoterol [Symbicort] 160-4.5 mcg/actuation HFA aerosol inhaler 2 puff INHALATION BID albuterol sulfate [Ventolin HFA] 90 mcg/actuation HFA aerosol inhaler 1 - 2 puff INHALATION Q4H PRN (Reason: Shortness Of Breath) clonazepam 1 mg tablet 1 mg PO QID PRN (Reason: Anxiety) hydrocodone-acetaminophen 10-325 mg Tablet 1 - 2 tab PO Q4H PRN (Reason: Pain) fluoxetine 40 mg capsule 40 mg PO QAM aspirin 81 mg Tablet,Delayed Release (Dr/Ec) 81 mg PO BEDTIME Vitamin C 500 mg Tablet 500 mg PO DAILY doxepin 10 mg Capsule 10 - 20 mg PO BEDTIME PRN (Reason: sleep/itching) Changed ipratropium-albuterol 0.5 mg-3 mg(2.5 mg base)/3 mL solution for nebulization 3 ml inhalation Q6H PRN (Reason: shortness of breath or wheezing) Qty: 180 0RF Rx Instructions: until breathing returns to target peak flow/parameters Discharge Orders: Discharge Order (Routine); Ordered 03/10/22 Ordered By: Roopa Hearn Other Ambulatory Orders: DME: BIPAP (Order) Location: None Selected Ordered By: Roopa Hearn DME: Oxygen (Order) Location: None Selected Ordered By: Roopa Hearn Referrals: [facility] [Outside] DatarRamin MD [Physician] - 2 weeks (Due to the iday we were unable to schedule your appointment. Please call the office on SundayMarch 14 to schedule your hospital follow up appointment.) Carson Murray, [Primary Care Provider] - 4-7 days (Due to the iday we were unable to schedule your appointment. Please call the office on SundayMarch 14 to schedule your hospital follow up appointment.) Discharge Diet: Usual diet Discharge Activity: Resume usual activity and Oxygen as instructed Patient Instructions: Levothyroxine (By mouth), Prednisone (By mouth), Azithromycin (By mouth), Formoterol (By breathing) (Foradil Aerolizer, Perforomist), Budesonide (By mouth), Escitalopram (By mouth), Tiotropium (By breathing), Roflumilast (By mouth) (Daliresp), Senna (By mouth), Revefenacin (By breathing) ( Yulpelri), Opioid Safety, Pain Management Activity Restrictions/Additional Instructions: Return to ER if you experience worsening of symptoms of development of new symptoms. Please use oxygen as directed.Please follow up with pcp and pulmnology as directed. Discharge Attestations Time Spent in Discharge Care*: greater than 30 min Status at Discharge: Cognitive status at discharge: mildly impaired cognition, Behavioral status at discharge: can be uncooperative, Quality Metrics Clinical Quality Measures [ No reported AMI, CVA or VTE this stay] Coding Level of Care Code Acute [facility] note Diagnoses COPD (chronic obstructive pulmonary disease) J44.9 Acute exacerbation of chronic obstructive airways disease J44.1 Anxiety disorder F41.9 Bipolar 1 disorder F31.9 Acute and chronic respiratory failure with hypercapnia J96.22
[2022-03-10 11:39] VITALS: BP 180/68
[2022-03-10 12:38] VITALS: BP 180/68; PULSE 55; RESP 12; TEMP 36.6; O2SAT 99
== END 2022-03-10 15:06 | disposition home or self-care (01) | DRG 190 ==
LOC: ER 18:30 → MEDSURG 20:21
PROVIDERS: Internal Medicine; Admitting Provider Internal Medicine; Emergency Provider Family Medicine; PCP Family Medicine; Visit Provider Internal Medicine
DX: J44.1 Chronic obstructive pulmonary disease with (acute) exacerbation (principal); J96.22 Acute and chronic respiratory failure with hypercapnia; F41.0 Panic disorder [episodic paroxysmal anxiety]; F31.9 Bipolar disorder, unspecified; Z99.81 Dependence on supplemental oxygen; Z79.51 Long term (current) use of inhaled steroids; Z79.891 Long term (current) use of opiate analgesic; Z79.82 Long term (current) use of aspirin; Z87.891 Personal history of nicotine dependence
CPT/HCPCS: 36415; 36600; 71045; 80048; 80051; 82330; 82805; 83735; 84100; 84145; 84443; 85025; 85378; 86140; 87635; 93005; 94640; 94660; 94664; 94760; 94762; 96372; 99285; G0378; J1650; J2270; J2920; J7030; J7626; Q0144

== ENCOUNTER 2022-03-11 01:20 | Emergency (ER) | payer MEDICARE, SELFPAY ==
[2022-03-11] VITALS (7 sets, daily range): BP systolic 132–172; BP diastolic 74–108; PULSE 92–112; RESP 16–27; TEMP 37.2; O2SAT 95–100; BMI 29.2
--- NOTE | 2022-03-11 01:31 | ECG_ITS ---
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 Measurements Intervals [place] Rate: 109 P: 89 TN: 141 QRS: 77 QRSD: 78 T: 69 QT: 326 QTc: 439 Interpretive Statements SINUS TACHYCARDIA POSSIBLE RIGHT VENTRICULAR CONDUCTION DELAY [RSR (QR) IN V1/V2] MODERATE ST DEPRESSION [0.05+ mV ST DEPRESSION] Compared to ECG 03/07/2022 17:32:47 ST (T wave) deviation now present Sinus rhythm no longer present Electronically Signed On 03-11-2022 10:55:52 AIR COMPRESSOR MECHANIC by Marcy Davalos M.D. [id number]
--- NOTE | 2022-03-11 01:32 | XRR_ITS ---
PROCEDURE INFORMATION: Exam: XR Chest Exam date and time: 03/11/2022 2:02 AM Age: 71 years old Clinical indication: Shortness of breath; Additional info: SOB TECHNIQUE: Imaging protocol: Radiologic exam of the chest. Views: 1 view. COMPARISON: CR XR chest 1V portable [id number] 03/09/2022 8:51 AM FINDINGS: Lungs: Left lower lobe atelectasis versus minimal infiltrate. Pleural spaces: Unremarkable. No pleural effusion. No pneumothorax. Heart/Mediastinum: Unremarkable. No cardiomegaly. Bones/joints: Unremarkable. XR/XR chest 1V portable [id number] IMPRESSION: Left lower lobe atelectasis versus minimal infiltrate.
[2022-03-11 01:41] LABS: Basophils # 0.1 10^3/uL (0.0-0.1); Basophils % 0.3 %; Eosinophils % 0.1 %; Hematocrit 47.1 % (37.0-47.0); Hemoglobin 14.9 g/dL (11.5-15.3); Lymphocytes # 1.9 10^3/uL (0.8-4.8); Lymphocytes % 9.9 %; Mean Corpuscular HGB Conc 31.6 g/dL (30.0-36.0); Mean Corpuscular Hemoglobin 32.1 pg (28.0-34.0); Mean Corpuscular Volume 101.5 fl (81-99); Mean Platelet Volume 11.1 fL (7.4-10.4); Monocytes # 1.4 10^3/uL (0.2-0.9); Neutrophils # 15.54 10^3/uL (1.8-7.7); Neutrophils % 79.6 %; Nucleated Red Blood Cells % 0 %; Platelet Count 440 10^3/cmm (130-400); Red Blood Count 4.64 10^6/uL (4.1-5.3); Red Cell Distribution Width 14.3 % (12.1-15.1); White Blood Count 19.5 10^3/uL (4.0-10.0)
[2022-03-11 02:07] LABS: Alanine Aminotransferase 22 U/L (0-33); Albumin Level 4.8 g/dL (3.5-5.2); Alkaline Phosphatase 87 U/L (35-105); Aspartate Amino Transferase 27 U/L (0-32); Blood Urea Nitrogen 12 mg/dL (8-23); Calcium 9.9 mg/dL (8.5-10.5); Carbon Dioxide 32 mmol/L (22-29); Chloride 95 mmol/L (98-107); Globulin 3.3 g/dL (1.3-4.6); Glucose 189 mg/dL (65-115); NT Pro B Type Natriuretic Pept 1748 pg/mL (0-125); Osmolality Calculated 293 mOsm/kg (285-295); Sodium 139 mmol/L (136-145); Total Bilirubin 0.6 mg/dL (0.15-1.2); Total Protein 8.1 g/dL (6.6-8.7)
[2022-03-11 02:08] LABS: Anion Gap 16.6 (5-19); Potassium 4.6 mmol/L (3.5-5.1)
--- NOTE | 2022-03-11 02:09 | W.ED.SOB ---
HPI - SOB/Dyspnea General: Chief Complaint: Shortness of Breath/Dyspnea Stated Complaint: SOB Time Seen by Provider: 03/11/22 01:25 Source: patient History of Present Illness: HPI Narrative: 71-year-old female who was discharged 03/10 afternoon after hospitalization for COPD exacerbation. Evidently she has end-stage COPD, and had been on hospice prior to her last admission. She presents again this morning with similar complaints. She notes that she did not do well at home, and is back complaining of shortness of breath she was short of breath at home despite the use of oxygen. MD elicited complaint: shortness of breath Pertinent past history: COPD Timing: constant Severity: severe Exacerbating factors: lying flat, exertion and coughing Relieving factors: oxygen Known history of: COPD Associated symptoms: Reports chest congestion, cough and dizziness; Deny abdominal pain, chest pain, extremity pain, fever(s) or vomiting Treatment prior to arrival: oxygen and bronchodilator Review of Systems Const: Denies: fever(s) ENMT: Denies: throat pain Card: Denies: chest pain Resp: Reports: dyspnea, productive cough and chest congestion GI: Denies: abdominal pain or vomiting Musc: Denies: extremity pain Skin/Breast: Denies: rash Neuro: Reports: dizziness Psych: Reports: anxiety PFSH ED PFSH: Medical History Chronic respiratory failure with hypoxia COPD (chronic obstructive pulmonary disease) Panic anxiety syndrome Surgical History History of appendectomy History of cholecystectomy History of hysterectomy Hx of tonsillectomy Social History Smoking and tobacco status: former smoker Quit status (tobacco): has quit using tobacco Year quit tobacco: 2015 - 1PPD x 40 Years Alcohol intake: never Lives independently: Yes Household members: none Current occupational status: disabled Pets and animals: Yes Pets & animals: dog(s) History of recent travel: No Current gender identity: Female Physical Exam Const: GENERAL APPEARANCE: cooperative, ill appearing and frail appearing HENMT: COMMON NORMALS: normocephalic, atraumatic and Normal external nose present HEAD & SCALP: normocephalic and atraumatic FACE & SINUS: normal facial exam and face symmetric NOSE: Normal external nose present Eye: COMMON NORMALS: Equal, round and reactive pupils present and EOMs intact bilaterally PUPIL: Yes Equal, round and reactive pupils present Neck/C-Spine: GENERAL: Yes trachea midline Chest: CHEST: Yes Symmetrical chest wall rise Resp: EFFORT & INSPECTION: Yes tachypneic and Yes uses accessory muscles AUSCULTATION: diminished lung sounds Cardio: COMMON NORMALS: regular rate and regular rhythm RATE: regular rate RHYTHM: regular rhythm GI: COMMON NORMALS: Normal to inspection, nondistended, normoactive bowel sounds present Extremity: COMMON NORMALS: no pedal edema Neuro: ARLIN COMA SCALE: document GCS findings Arlin coma scale eye opening: Spontaneous [place] coma scale verbal response: Orientated [place] coma scale motor response: Obey commands Arlin coma scale total score: 15 SENSORY EXAM: Yes extremities (intact) Psych: COMMON NORMALS: speech normal SPEECH: Yes normal speech Skin: COMMON NORMALS: no rashes or lesions noted GENERAL SKIN EXAM: no rashes or lesions noted Course Vital Signs: Vital signs: Vital Signs Temperature 98.9 F 03/11/22 01:21 Pulse Rate 101 H 03/11/22 04:30 Respiratory Rate 21 H 03/11/22 04:30 Blood Pressure 132/95 03/11/22 04:30 Pulse Oximetry 95 03/11/22 04:30 Oxygen Delivery Me thod 03/11/22 03:15 Oxygen Flow Rate 2 03/11/22 03:15 MDM - SOB/Dyspnea Medical Decision Making Patient is on 6 L at home. Saturations been 100% on 3 L here. This is after DuoNeb treatment. She does appear anxious on exam. Blood gas reveals no retention. White blood cell count is up to 19.5 likely after steroids in the hospital. Her BNP is slightly elevated, although her chest x-ray shows no evidence of heart failure. She has left lower lobe atelectasis on chest x-ray. She is currently on a steroid taper and antibiotics. Without evidence of retention, and saturations being superb on less than her home O2 allotment, we will discharge her back home for now. She may return if worsening. Lab Data 03/11/22 01:30 03/11/22 01:30 Labs/Radiology: Radiology Impressions Chest X-Ray 03/11/22 01:32 IMPRESSION: Left lower lobe atelectasis versus minimal infiltrate. Laboratory Results WBC 19.5 10^3/uL (4.0-10.0) H 03/11/22 01:30 RBC 4.64 10^6/uL (4.1-5.3) 03/11/22 01:30 Hgb 14.9 g/dL (11.5-15.3) 03/11/22 01:30 Hct 47.1 % (37.0-47.0) H 03/11/22 01:30 MCV 101.5 fl (81-99) H 03/11/22 01:30 MCH 32.1 pg (28.0-34.0) 03/11/22 01:30 MCHC 31.6 g/dL (30.0-36.0) 03/11/22 01:30 RDW 14.3 % (12.1-15.1) 03/11/22 01:30 Plt Count 440 10^3/cmm (130-400) H 03/11/22 01:30 MPV 11.1 fL (7.4-10.4) H 03/11/22 01:30 Neut % (Auto) 79.6 % 03/11/22 01:30 Lymph % (Auto) 9.9 % 03/11/22 01:30 [place] % (Auto) 7.0 % 03/11/22 01:30 Eos % (Auto) 0.1 % 03/11/22 01:30 Baso % (Auto) 0.3 % 03/11/22 01:30 Neut # (Auto) 15.54 10^3/uL (1.8-7.7) H 03/11/22 01:30 Lymph # (Auto) 1.9 10^3/uL (0.8-4.8) 03/11/22 01:30 [place] # (Auto) 1.4 10^3/uL (0.2-0.9) H 03/11/22 01:30 Eos # (Auto) 0.0 10^3/uL (0.0-0.8) 03/11/22 01:30 Baso # (Auto) 0.1 10^3/uL (0.0-0.1) 03/11/22 01:30 Nucleated RBC % (auto) 0 % 03/11/22 01:30 Nucleated RBCs # 0.0 /100WBC 03/11/22 01:30 Specimen Type Arterial 03/11/22 02:33 Sample Site Radial, right 03/11/22 02:33 ABG pH 7.37 (7.35-7.45) 03/11/22 02:33 ABG pCO2 57.2 mmHg (35-45) H 03/11/22 02:33 ABG pO2 174.0 mmHg (80.0-100.0) H 03/11/22 02:33 ABG HCO3 33.2 mmol/L (22-26) H 03/11/22 02:33 ABG Base Excess 6.2 mmol/L (-2.0-2.0) H 03/11/22 02:33 Stephen Test Pos 03/11/22 02:33 Hematocrit 39.7 % (37-47) 03/11/22 02:33 Hgb O2 Saturation 98.7 % (95-100) 03/11/22 02:33 Carboxyhemoglobin 0.5 %THgb (0.4-20.1) 03/11/22 02:33 Methemoglobin 0.8 % (0.4-1.5) 03/11/22 02:33 Total Hemoglobin 13.0 g/dL (12-16) 03/11/22 02:33 O2 Delivery Device Nc 03/11/22 02:33 O2 Liters/Min 6.0 % 03/11/22 02:33 FiO2 44.0 % 03/11/22 02:33 Panel Edge Sealer ID [email or web address] 03/11/22 02:33 Sodium 139 mmol/L (136-145) 03/11/22 01:30 Potassium 4.6 mmol/L (3.5-5.1) 03/11/22 01:30 Chloride 95 mmol/L (98-107) L 03/11/22 01:30 Carbon Dioxide 32 mmol/L (22-29) H 03/11/22 01:30 Anion Gap 16.6 (5-19) 03/11/22 01:30 BUN 12 mg/dL (8-23) 03/11/22 01:30 Creatinine 0.6 mg/dL (0.5-0.9) 03/11/22 01:30 GFR Calculation Not Reportable 03/11/22 01:30 Glucose 189 mg/dL (65-115) H 03/11/22 01:30 Calculated Osmolality 293 mOsm/kg (285-295) 03/11/22 01:30 Lactic Acid 1.9 mmol/L (0.5-2.2) 03/11/22 01:45 Calcium 9.9 mg/dL (8.5-10.5) 03/11/22 01:30 Total Bilirubin 0.6 mg/dL (0.15-1.2) 03/11/22 01:30 AST 27 U/L (0-32) 03/11/22 01:30 ALT 22 U/L (0-33) 03/11/22 01:30 Alkaline Phosphatase 87 U/L (35-105) 03/11/22 01:30 NT-Pro-B Natriuret Pep 1748 pg/mL (0-125) H 03/11/22 01:30 Total Protein 8.1 g/dL (6.6-8.7) 03/11/22 01:30 Albumin 4.8 g/dL (3.5-5.2) 03/11/22 01:30 Globulin 3.3 g/dL (1.3-4.6) 03/11/22 01:30 Discharge Plan Discharge Patient Disposition: Home Clinical Impression: COPD (chronic obstructive pulmonary disease) Condition: Stable Prescriptions: No Action budesonide-formoterol [Symbicort] 160-4.5 mcg/actuation HFA aerosol inhaler 2 puff INHALATION BID albuterol sulfate [Ventolin HFA] 90 mcg/actuation HFA aerosol inhaler 1 - 2 puff INHALATION Q4H PRN (Reason: Shortness Of Breath) clonazepam 1 mg tablet 1 mg PO QID PRN (Reason: Anxiety) hydrocodone-acetaminophen 10-325 mg Tablet 1 - 2 tab PO Q4H PRN (Reason: Pain) fluoxetine 40 mg capsule 40 mg PO QAM aspirin 81 mg Tablet,Delayed Release (Dr/Ec) 81 mg PO BEDTIME Vitamin C 500 mg Tablet 500 mg PO DAILY doxepin 10 mg Capsule 10 - 20 mg PO BEDTIME PRN (Reason: sleep/itching) azithromycin 250 mg Tablet 500 mg PO DAILY 5 Days Qty: 5 0RF Stool Softener-Laxative 8.6-50 mg Tablet 1 tab PO DAILY 14 Days Qty: 1 0RF levothyroxine 125 mcg Tablet 125 mcg PO DAILY 30 Days Qty: 30 0RF escitalopram oxalate 10 mg Tablet 10 mg PO DAILY 30 Days Qty: 30 0RF Daliresp 500 mcg Tablet 500 mcg PO DAILY 30 Days Qty: 30 0RF Spiriva Respimat 2.5 mcg/actuation mist 2 inh inhalation Q24H 30 Days Qty: 4 0RF Pulmicort 0.5 mg/2 mL suspension for nebulization 0.25 mg inhalation BID 30 Days Qty: 60 0RF prednisone 10 mg tablet 10 mg PO DAILY Qty: 60 0RF Rx Instructions: 40 mg x 3 D 20 mg x 3 D 10 mg x daily ipratropium-albuterol 0.5 mg-3 mg(2.5 mg base)/3 mL solution for nebulization 3 ml inhalation Q6H PRN (Reason: shortness of breath or wheezing) Qty: 180 0RF Rx Instructions: until breathing returns to target peak flow/parameters Perforomist 20 mcg/2 mL solution for nebulization 2 ml inhalation BID 30 Days Qty: 120 0RF Yupelri 175 mcg/3 mL solution for nebulization 175 mcg inhalation DAILY 30 Days Qty: 90 0RF Discharge Orders: Discharge ED (Routine); Ordered 03/11/22 Ordered By: Ron Calderon Referrals: Carson Murray, DO [Primary Care Provider] - 1-3 days Patient Instructions: Chronic Lung Disease and Infection Prevention (ED), Opioid Safety, Pain Management Activity Restrictions/Additional Instructions: Use your DuoNeb nebulizer treatments every 4 hours while awake for the next 48 hours, whether you feel short of breath or not, then as needed following. Continue your steroids and antibiotics as instructed on hospital discharge. Return for worsening shortness of breath despite the above. Follow-up with your doctor this coming week. Coding Level of Care Code ED Gis Analyst Developer for Rocg Fwd Exam Comprehensive
[2022-03-11] MEDS: ipratropium-albuterol 3 mL Neb INHALATION (02:17)
[2022-03-11 02:29] LABS: Lactic Sepsis W/Reflex 1.9 mmol/L (0.5-2.2)
[2022-03-11 02:36] LABS: ABG PCO2 57.2 mmHg (35-45); ABG PH Result 7.37 (7.35-7.45); Arterial Blood Gas Hematocrit 39.7 % (37-47); Base Excess ABG 6.2 mmol/L (-2.0-2.0); Blood Gas Allen Test Pos; Blood Gas Sample Site Radial, right; Blood Gas Sample Type Arterial; Carboxyhemoglobin 0.5 %THgb (0.4-20.1); HCO3 ABG 33.2 mmol/L (22-26); HGB O2 Sat 98.7 % (95-100); Methemoglobin 0.8 % (0.4-1.5); Oxygen Device NC
[2022-03-11] MEDS: FUROsemide 10 mg/mL SDV 4mL 40 MG IVP (03:24)
== END 2022-03-11 07:30 | disposition home or self-care (01) ==
PROVIDERS: Emergency Provider Emergency Medicine; PCP Family Medicine
DX: J44.9 Chronic obstructive pulmonary disease, unspecified (principal); Z79.82 Long term (current) use of aspirin; Z87.891 Personal history of nicotine dependence
CPT/HCPCS: 36415; 36600; 71045; 80053; 82805; 83605; 83880; 85025; 87040; 93005; 94640; 96374; 96375; 99285; J1940; J2930

== ENCOUNTER 2022-03-26 01:46 | Inpatient (IN) | payer MEDICARE, SELFPAY ==
[2022-03-26] VITALS (20 sets, daily range): BP systolic 109–166; BP diastolic 61–98; PULSE 72–105; RESP 10–20; TEMP 36.3–37.7; O2SAT 93–100; BMI 29.2; BMI 33.5
--- NOTE | 2022-03-26 02:08 | XRR_ITS ---
PROCEDURE INFORMATION: Exam: XR Chest Exam date and time: 03/26/2022 2:21 AM Age: 71 years old Clinical indication: Shortness of breath; Additional info: Dyspnea TECHNIQUE: Imaging protocol: Radiologic exam of the chest. Views: 1 view. COMPARISON: CR (CHEST, ) 03/11/2022 2:02 AM FINDINGS: Lungs: No consolidation. Minimally to mildly increased bilateral lung base hazy reticular opacities Pleural spaces: No pleural effusion. No pneumothorax. Heart/Mediastinum: No cardiomegaly. Bones/joints: No acute fracture. XR/XR chest 1V portable [id number] IMPRESSION: Minimally to mildly increased bilateral lung base hazy reticular opacities, compatible with increased atelectasis and or infiltrate. Correlate and follow-up as clinically indicated.
[2022-03-26 02:09] LABS: ABG PH Result 7.25 (7.35-7.45); Arterial Blood Gas Hematocrit 38.8 % (37-47); Base Excess ABG 2.2 mmol/L (-2.0-2.0); Blood Gas Allen Test Pos; Blood Gas Sample Site Radial, right; Blood Gas Sample Type Arterial; HCO3 ABG 31.4 mmol/L (22-26); Oxygen Device NC; PO2 ABG 67.9 mmHg (80.0-100.0)
[2022-03-26 02:20] LABS: Basophils # 0.1 10^3/uL (0.0-0.1); Basophils % 0.9 %; Eosinophils # 0.6 10^3/uL (0.0-0.8); Eosinophils % 9.2 %; Hematocrit 41.5 % (37.0-47.0); Hemoglobin 12.9 g/dL (11.5-15.3); Mean Corpuscular HGB Conc 31.1 g/dL (30.0-36.0); Mean Corpuscular Hemoglobin 32.1 pg (28.0-34.0); Mean Corpuscular Volume 103.2 fl (81-99); Mean Platelet Volume 10.3 fL (7.4-10.4); Monocytes % 14.1 %; Neutrophils # 3.16 10^3/uL (1.8-7.7); Neutrophils % 46.7 %; Nucleated Red Blood Cells % 0 %; Platelet Count 336 10^3/cmm (130-400); Red Blood Count 4.02 10^6/uL (4.1-5.3); Red Cell Distribution Width 14.6 % (12.1-15.1); White Blood Count 6.8 10^3/uL (4.0-10.0)
[2022-03-26 02:30] LABS: Anion Gap 11.2 (5-19); Blood Urea Nitrogen 16 mg/dL (8-23); Calcium 9.1 mg/dL (8.5-10.5); Carbon Dioxide 32 mmol/L (22-29); Chloride 101 mmol/L (98-107); Glucose 124 mg/dL (65-115); Lactic Sepsis W/Reflex 0.6 mmol/L (0.5-2.2); Osmolality Calculated 293 mOsm/kg (285-295); Potassium 4.2 mmol/L (3.5-5.1); Sodium 140 mmol/L (136-145)
--- NOTE | 2022-03-26 03:16 | ECG_ITS ---
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 Measurements Intervals [place] Rate: 70 P: 87 MS: 142 QRS: 76 QRSD: 77 T: 82 QT: 386 QTc: 416 Interpretive Statements SINUS RHYTHM POSSIBLE RIGHT VENTRICULAR CONDUCTION DELAY [RSR (QR) IN V1/V2] Compared to ECG 03/11/2022 01:31:38 Sinus tachycardia no longer present ST (T wave) deviation no longer present Electronically Signed On 03-26-2022 20:21:46 FARROWING MANAGER by Giorgi Justin M.D. [id number]
[2022-03-26 03:23] LABS: Influenza A by IFA negative (Negative); Influenza B by IFA negative (Negative)
[2022-03-26] MEDS: HYDROcodone-acetaminophen 10-325 mg Tablet 2 TAB PO (04:16)
--- NOTE | 2022-03-26 04:47 | PM.HP ---
Providers/Chief Complaint Primary Care Provider: Carson Murray DO Chief Complaint: SOB History of Present Illness Socorro Montes De Oca is a 71 year old female with past medical history of end-stage COPD and has been on hospice in the past, anxiety, chronically on home oxygen 6 L at baseline presented to the hospital complaining of shortness of breath. She says she was short of breath despite using her oxygen. Denies a cough denies any other symptoms at this time. Poor historian. When asked how was her Demetris she stated it is already past [place]? Patient is alert oriented x3 but does appear confused. Denies nausea vomiting fever diarrhea constipation. ED course: On arrival gas was obtained. . He was immediately placed on BiPAP. Blood pressure 132/95 respiratory 21 WBC count 19.5. She was given steroids in route. Chest x-ray shows bilateral lower lobe atelectasis versus pneumonia/infiltrate. She chronically takes prednisone 10 mg daily. Initially patient was going to be discharged however once the BiPAP was taken off she started to get very hypoxic again. Therefore it was decided to admit the patient. We will administer IV steroids at this time. Hospitalist was requested to admit the patient. Medications/Allergies Home Medications Medication Instructions Recorded Confirmed Last Taken Type albuterol sulfate 90 mcg/actuation 1 - 2 puff inhalation Q4H PRN 08/21/19 03/08/22 Unknown History aerosol inhaler (Ventolin HFA) Shortness Of Breath budesonide-formoterol HFA 160 2 puff inhalation BID 08/21/19 03/08/22 02/28/22 History mcg-4.5 mcg/actuation aerosol inhaler (Symbicort) clonazepam 1 mg tablet 1 mg PO QID PRN Anxiety 02/07/22 03/08/22 Unknown History hydrocodone 10 mg-acetaminophen 1 - 2 tab PO Q4H PRN Pain 02/07/22 03/08/22 Unknown History 325 mg tablet ascorbic acid (vitamin C) 500 mg 500 mg PO DAILY 03/08/22 03/08/22 Unknown History tablet (Vitamin C) aspirin 81 mg tablet,delayed 81 mg PO BEDTIME 03/08/22 03/08/22 Unknown History release doxepin 10 mg capsule 10 - 20 mg PO BEDTIME PRN 03/08/22 03/08/22 Unknown History sleep/itching escitalopram oxalate 10 mg tablet 10 mg PO DAILY 30 days #30 tabs 03/08/22 Unknown Rx fluoxetine 40 mg capsule 40 mg PO QAM 03/08/22 03/08/22 Unknown History levothyroxine 125 mcg tablet 125 mcg PO DAILY 30 days #30 tabs 03/08/22 Unknown Rx roflumilast 500 mcg tablet 500 mcg PO DAILY 30 days #30 tabs 03/08/22 Unknown Rx (Daliresp) tiotropium bromide 2.5 2 inh inhalation Q24H 30 days #4 03/08/22 Unknown Rx mcg/actuation mist for inhalation grams (Spiriva Respimat) budesonide 0.5 mg/2 mL suspension 0.25 mg inhalation BID 30 days #60 03/10/22 Unknown Rx for nebulization (Pulmicort) mL formoterol fumarate 20 mcg/2 mL 2 ml inhalation BID 30 days #120 mL 03/10/22 Unknown Rx solution for nebulization (Perforomist) ipratropium 0.5 mg-albuterol 3 mg 3 ml inhalation Q6H PRN shortness 03/10/22 Unknown Rx (2.5 mg base)/3 mL nebulization of breath or wheezing #180 mL soln prednisone 10 mg tablet 10 mg PO DAILY #60 tabs 03/10/22 Unknown Rx revefenacin 175 mcg/3 mL solution 175 mcg (3 mL) inhalation DAILY 30 03/10/22 Unknown Rx for nebulization (Yupelri) days #90 mL Allergies Allergy/AdvReac Type Severity Reaction Status Date / Time olanzapine [From Zyprexa] Allergy Severe edema Verified 03/08/22 09:13 PFSH Acute PFSH: Medical History Chronic respiratory failure with hypoxia COPD (chronic obstructive pulmonary disease) Panic anxiety syndrome Surgical History History of appendectomy History of cholecystectomy History of hysterectomy Hx of tonsillectomy Social History Smoking and tobacco status: former smoker Quit status (tobacco): has quit using tobacco Year quit tobacco: 2015 - 1PPD x 40 Years Alcohol intake: never Lives independently: Yes Household members: none Current occupational status: disabled Pets and animals: Yes Pets & animals: dog(s) History of recent travel: No Current gender identity: Female Vitals/I&O/Wt Last Vital Signs Temp 97.6 F 03/26/22 01:47 Pulse 74 03/26/22 02:33 Resp 15 03/26/22 02:33 BP 141/98 03/26/22 01:47 Pulse Ox 99 03/26/22 02:33 O2 Del Method 03/26/22 02:33 O2 Flow Rate 2 03/26/22 01:47 FiO2 40 03/26/22 02:33 Weight last 48 hrs Weight 68.039 kg Physical Exam Narrative: General: Alert oriented x3, patient seen laying in bed appearing comfortable at this time.? On BiPAP at this time. HEENT: Normocephalic, atraumatic, EOMI, Cardio: Regular rate rhythm, normal S1-S2, Respiratory: Clear to auscultation bilaterally mild rhonchi at times GI: Abdomen soft, nontender, nondistended, bowel sounds + Behavior: Appropriate and cooperative Extremities: No bilateral lower extremity edema, no cyanosis Data 03/26/22 01:59 03/26/22 01:59 A&P Assessment and plan (1) Chronic respiratory failure with hypoxia: (2) COPD (chronic obstructive pulmonary disease): (3) Acute exacerbation of chronic obstructive airways disease: (4) Acute on chronic respiratory failure with hypoxia and hypercapnia: (5) Anxiety disorder: (6) Bipolar 1 disorder: (7) Asthma-COPD overlap syndrome: Plan #COPD exacerbation #Possible pneumonia #Previously on hospice #End-stage COPD #Anxiety bipolar disorder ? Solu-Medrol 60 IV twice daily ? DuoNeb every 4 hours scheduled ? Pulmicort twice daily ? Continue Daliresp ? Continue on Levaquin 750 daily ? Continue aspirin and all other home medications. ? Check COVID and flu ? Will need pulmonary rehab at discharge ? She still has not been seen by pulmonology. She will need an appointment with aircraft mechanic electrical and radio at discharge as well ? Patient is no longer on hospice services Full code DVT prophylaxis: Heparin SQ twice daily Attestations Medical Necessity Statement*: Admit for possible pneumonia and COPD exacerbation. Coding Level of Care Code Acute Sales Operations Director for Ji Melgar Diagnoses Chronic respiratory failure with hypoxia J96.11 COPD (chronic obstructive pulmonary disease) J44.9 Acute exacerbation of chronic obstructive airways disease J44.1 Acute on chronic respiratory failure with hypoxia and hypercapnia J96.21; J96.22 Anxiety disorder F41.9 Bipolar 1 disorder F31.9 Asthma-COPD overlap syndrome J44.9
[2022-03-26 05:30] LABS: Procalcitonin 0.03 ng/mL (0-0.5)
[2022-03-26] MEDS: levofloxacin-dextrose 5 % 750 MG/150 ML PREMIX 100 MG IV (05:30)
--- NOTE | 2022-03-26 06:46 | PC.NURSE ---
ER report taken from Connor. Patient arrived to floor and report given to dayshift nurse Trevor.
[2022-03-26] MEDS: ipratropium-albuterol 3 mL Neb INHALATION ×4 (08:06→20:16)
[2022-03-26] MEDS: levothyroxine 125 mcg Tablet PO (08:19)
[2022-03-26] MEDS: roflumilast 500 mcg Tablet PO (08:19)
[2022-03-26] MEDS: escitalopram 10 mg Tablet PO (08:19)
[2022-03-26] MEDS: fluoxetine 20 mg Capsule 40 MG PO (08:19)
[2022-03-26] MEDS: sodium chloride 0.9% 1,000 ML 75 ML IV ×2 (08:20→19:37)
--- NOTE | 2022-03-26 09:36 | PC.PHAR ---
unable to verify medications with pt-pt has no contacts-medications entered are what ext med history shows and what was on previous entered med list from when pt was discharged on 03/10/22-notes are made in the pharmacy comments with last fill dates
[2022-03-26] MEDS: HYDROcodone-acetaminophen 10-325 mg Tablet 1 TAB PO ×2 (10:09→19:34)
--- NOTE | 2022-03-26 10:44 | PC.OT ---
OT orders received to evaluate and treat patient. Patient sitting on edge of bed when therapist entered. Pt. declined OT evaluation. After education in what OT addresses, pt. still refused evaluation. Therapist left pt. sitting on edge of bed.
[2022-03-26 13:28] LABS: ABG PCO2 72.1 mmHg (35-45)
--- NOTE | 2022-03-26 16:22 | ED_ITS ---
HPI - SOB/Dyspnea General: Chief Complaint: Shortness of Breath/Dyspnea Stated Complaint: SOB Time Seen by Provider: 03/26/22 02:21 Source: patient History of Present Illness: HPI Narrative: 71 year old female with a history of end stage COPD. She had been on Hospice for her COPD until an admission a few weeks ago. She said multiple admissions recently. She presents with shortness of breath, cough, and sputum production at home. This is despite breathing treatments, etcetera. She denies any fever. Sputum does not have a color. She states that she uses 6 liters of oxygen by nasal cannula at home, and where is it mostly over her mouth. MD elicited complaint: shortness of breath and cough Pertinent past history: COPD Onset (ago): hour(s) Context: anxiety and other Timing: constant Severity: similar to previous episodes Exacerbating factors: lying flat and exertion Relieving factors: nothing Known history of: COPD Associated symptoms: Reports chest congestion, cough and orthopnea; Deny abdominal pain, chest pain, fever(s) or vomiting Treatment prior to arrival: oxygen and bronchodilator Related Data: Home oxygen amount: other (6) Review of Systems Const: Denies: fever(s) ENMT: Denies: throat pain Card: Reports: orthopnea; Denies: chest pain Resp: Reports: dyspnea, productive cough and chest congestion GI: Denies: abdominal pain or vomiting Musc: Reports: back pain Skin/Breast: Denies: rash Neuro: Reports: headache(s) Psych: Reports: anxiety PFSH ED PFSH: Medical History Chronic respiratory failure with hypoxia COPD (chronic obstructive pulmonary disease) Panic anxiety syndrome Surgical History History of appendectomy History of cholecystectomy History of hysterectomy Hx of tonsillectomy Social History Smoking and tobacco status: former smoker Quit status (tobacco): has quit using tobacco Year quit tobacco: 2014 1PPD x 40 Years Alcohol intake: never Lives independently: Yes Household members: none Current occupational status: disabled Pets and animals: Yes Pets & animals: dog(s) History of recent travel: No Current gender identity: Female Physical Exam Const: GENERAL APPEARANCE: cooperative, ill appearing and frail appearing ORIENTATION/CONSCIOUSNESS: Yes awake, Yes oriented to person, Yes oriented to place and Yes oriented to time HENMT: COMMON NORMALS: normocephalic, atraumatic and Normal external nose present HEAD & SCALP: normocephalic and atraumatic FACE & SINUS: normal facial exam and face symmetric NOSE: Normal external nose present Eye: COMMON NORMALS: Equal, round and reactive pupils present and EOMs intact bilaterally PUPIL: Yes Equal, round and reactive pupils present Neck/C-Spine: GENERAL: Yes trachea midline Chest: CHEST: Yes Symmetrical chest wall rise Resp: EFFORT & INSPECTION: No able to speak in complete sentences, Yes tachypneic, Yes respiratory distress, Yes pursed lip breathing, Yes labored and Yes uses accessory muscles AUSCULTATION: wheezes and diminished lung sounds Cardio: COMMON NORMALS: regular rate and regular rhythm RATE: regular rate RHYTHM: regular rhythm GI: COMMON NORMALS: Normal to inspection, nondistended, normoactive bowel sounds present Extremity: COMMON NORMALS: no pedal edema Neuro: ARLIN COMA SCALE: document GCS findings Arlin coma scale eye opening: Spontaneous Arlin coma scale verbal response: Orientated [place] coma scale motor response: Obey commands [place] coma scale total score: 15 SENSORIUM/ORIENTATION: Yes oriented to person, Yes oriented to place and Yes oriented to time SENSORY EXAM: Yes extremities (intact) Psych: COMMON NORMALS: speech normal SPEECH: Yes normal speech Skin: COMMON NORMALS: no rashes or lesions noted GENERAL SKIN EXAM: no rashes or lesions noted Course Vital Signs: Vital signs: Vital Signs Temperature 98.7 F 03/26/22 12:00 Pulse Rate 72 03/26/22 15:44 Respiratory Rate 15 03/26/22 15:43 Blood Pressure 123/61 03/26/22 12:00 Pulse Oximetry 100 03/26/22 15:44 Oxygen Delivery Me thod 03/26/22 15:43 Oxygen Flow Rate 6 03/26/22 11:29 Fraction of Inspir ed Oxygen 40 03/26/22 15:44 MDM - SOB/Dyspnea Medical Decision Making This is a 71 year old rather cantankerous lady with end stage COPD. Her pH was 7.2 on abg on arrival. Because of this, she was placed on bipap, she is awake and talking. Although she denies it, she had some improvement in her respiratory symptoms. At one point she took the bipap off, and was refusing to put it back on. After a coyle conversation with her, she agreed to wear the bipap. Chest X- ray shows mild patchy infiltrate. She does not have a Leukocytosis. She's given antibiotics for the infiltrate. She'll be admitted for hypercapnic respiratory failure and pneumonia. Lab Data 03/26/22 01:59 03/26/22 01:59 Labs/Radiology: Radiology Impressions Chest X-Ray 03/26/22 02:08 IMPRESSION: Minimally to mildly increased bilateral lung base hazy reticular opacities, compatible with increased atelectasis and or infiltrate. Correlate and follow-up as clinically indicated. Laboratory Results WBC 6.8 10^3/uL (4.0-10.0) 03/26/22 01:59 RBC 4.02 10^6/uL (4.1-5.3) L 03/26/22 01:59 Hgb 12.9 g/dL (11.5-15.3) 03/26/22 01:59 Hct 41.5 % (37.0-47.0) 03/26/22 01:59 MCV 103.2 fl (81-99) H 03/26/22 01:59 MCH 32.1 pg (28.0-34.0) 03/26/22 01:59 MCHC 31.1 g/dL (30.0-36.0) 03/26/22 01:59 RDW 14.6 % (12.1-15.1) 03/26/22 01:59 Plt Count 336 10^3/cmm (130-400) 03/26/22 01:59 MPV 10.3 fL (7.4-10.4) 03/26/22 01:59 Neut % (Auto) 46.7 % 03/26/22 01:59 Lymph % (Auto) 29.0 % 03/26/22 01:59 Benzie % (Auto) 14.1 % 03/26/22 01:59 Eos % (Auto) 9.2 % 03/26/22 01:59 Baso % (Auto) 0.9 % 03/26/22 01:59 Neut # (Auto) 3.16 10^3/uL (1.8-7.7) 03/26/22 01:59 Lymph # (Auto) 2.0 10^3/uL (0.8-4.8) 03/26/22 01:59 Benzie # (Auto) 1.0 10^3/uL (0.2-0.9) H 03/26/22 01:59 Eos # (Auto) 0.6 10^3/uL (0.0-0.8) 03/26/22 01:59 Baso # (Auto) 0.1 10^3/uL (0.0-0.1) 03/26/22 01:59 Nucleated RBC % (auto) 0 % 03/26/22 01:59 Nucleated RBCs # 0.0 /100WBC 03/26/22 01:59 Specimen Type Arterial 03/26/22 02:00 Sample Site Radial, right 03/26/22 02:00 ABG pH 7.25 (7.35-7.45) L 03/26/22 02:00 ABG pCO2 72.1 mmHg (35-45) H* 03/26/22 02:00 ABG pO2 67.9 mmHg (80.0-100.0) L 03/26/22 02:00 ABG HCO3 31.4 mmol/L (22-26) H 03/26/22 02:00 ABG Base Excess 2.2 mmol/L (-2.0-2.0) H 03/26/22 02:00 Stephen Test Pos 03/26/22 02:00 Hematocrit 38.8 % (37-47) 03/26/22 02:00 O2 Delivery Device Nc 03/26/22 02:00 FiO2 32.0 % 03/26/22 02:00 Cross Tie Tram Loader ID Droch 03/26/22 02:00 Sodium 140 mmol/L (136-145) 03/26/22 01:59 Potassium 4.2 mmol/L (3.5-5.1) 03/26/22 01:59 Chloride 101 mmol/L (98-107) 03/26/22 01:59 Carbon Dioxide 32 mmol/L (22-29) H 03/26/22 01:59 Anion Gap 11.2 (5-19) 03/26/22 01:59 BUN 16 mg/dL (8-23) 03/26/22 01:59 Creatinine 0.6 mg/dL (0.5-0.9) 03/26/22 01:59 GFR Calculation Not Reportable 03/26/22 01:59 Glucose 124 mg/dL (65-115) H 03/26/22 01:59 Calculated Osmolality 293 mOsm/kg (285-295) 03/26/22 01:59 Lactic Acid 0.6 mmol/L (0.5-2.2) 03/26/22 01:59 Calcium 9.1 mg/dL (8.5-10.5) 03/26/22 01:59 Procalcitonin 0.03 ng/mL (0-0.5) 03/26/22 01:59 Influenza Type A Ag negative (Negative) 03/26/22 02:19 Influenza Type B Ag negative (Negative) 03/26/22 02:19 Discharge Plan Discharge Patient Disposition: Admitted As Inpatient Admit Provider: Roopa Hearn Clinical Impression: Acute exacerbation of chronic obstructive airways disease, Acute on chronic respiratory failure with hypoxia and hypercapnia Condition: Stable Coding Level of Care Code ED Special Forces Specialist for Ji Melgar
[2022-03-26] MEDS: aspirin 81 mg EC Tablet PO (20:53)
--- NOTE | 2022-03-26 21:04 | P.PN_ITS ---
Subjective Subjective: States she does not feel like she is breathing significantly better. Perhaps slightly. Coughing. Although cough is mostly dry. Vitals/I&O/Wt Last Vital Signs Temp 97.9 F 03/26/22 20:00 Pulse 86 03/26/22 20:18 Resp 14 03/26/22 20:18 BP 145/70 03/26/22 20:00 Pulse Ox 100 03/26/22 20:18 O2 Del Method 03/26/22 20:00 O2 Flow Rate 6 03/26/22 11:29 FiO2 40 03/26/22 20:18 03/26/22 03/26/22 03/26/22 06:59 14:59 22:59 Intake Total 750 / 750 966.25 / 1716.25 Output Total 250 / 250 Balance 500 / 500 966.25 / 1466.25 Weight last 48 hrs Weight 77.836 kg Weight 68.039 kg Physical Exam Narrative: Continues on BiPAP. Const: COMMON NORMALS: patient oriented x3 and alert GENERAL APPEARANCE: cooperative ORIENTATION/CONSCIOUSNESS: Yes awake HENMT: COMMON NORMALS: oropharynx normal Neck/C-Spine: COMMON NORMALS: no JVD Resp: COMMON NORMALS: normal respiratory effort AUSCULTATION: diminished lung sounds Cardio: COMMON NORMALS: no JVD, regular rhythm, S1 normal heart sound present, S2 normal heart sound present and No murmurs present (Cardio) RHYTHM: regular rhythm HEART SOUNDS: S1 normal heart sound present and S2 normal heart sound present GI: COMMON NORMALS: Normal to inspection, nondistended, normoactive bowel sounds present, Soft to palpation and non-tender PALPATION: Yes Soft to palpation Extremity: COMMON NORMALS: no joint enlargement and no pedal edema Neuro: COMMON NORMALS: patient oriented x3 and moves all extremities SENSORIUM/ORIENTATION: Yes alert Skin: COMMON NORMALS: no rashes or lesions noted GENERAL SKIN EXAM: no rashes or lesions noted Data 03/26/22 01:59 03/26/22 01:59 Micro: Microbiology 03/26/22 05:28 Blood Culture - Preliminary Blood SPECIMEN COLLECTED 03/26/22 05:10 Blood Culture - Preliminary Blood SPECIMEN COLLECTED A&P Assessment and plan (1) Acute exacerbation of chronic obstructive airways disease: Acute on chronic respiratory failure with hypercapnia, respiratory acidosis. Reports feeling persistent dyspnea. Still diminished air entry. Will adjust her steroids dosing to 40 mg every 6 hours. Continue Levaquin. Continue scheduled nebs. Add as needed nebs. (2) Chronic respiratory failure with hypoxia: (3) COPD (chronic obstructive pulmonary disease): (4) Acute on chronic respiratory failure with hypoxia and hypercapnia: (5) Anxiety disorder: (6) Bipolar 1 disorder: (7) Asthma-COPD overlap syndrome: Plan Chronic pain: Reports chronic neck and back pain. At home she occasionally t akes up to 2 mg tablets of hydrocodone-acetaminophen at the same time to help break the pain and give her relief. Ordered additional dose x1. #COPD exacerbation #Possible pneumonia #Previously on hospice #End-stage COPD #Anxiety bipolar disorder ? Will need pulmonary rehab at discharge ? She still has not been seen by pulmonology. She will need an appointment with sizing machine operator at discharge as well ? Patient is no longer on hospice services Full code DVT prophylaxis: Heparin SQ twice daily Attestations Medical Necessity Statement*: Continue admission for assessment management of acute on chronic respiratory failure with hypercapnic respiratory acidosis and lady with underlying severe COPD. Coding Level of Care Code Acute News Production Assistant for Ji Melgar Diagnoses Acute exacerbation of chronic obstructive airways disease J44.1 Chronic respiratory failure with hypoxia J96.11 COPD (chronic obstructive pulmonary disease) J44.9 Acute on chronic respiratory failure with hypoxia and hypercapnia J96.21; J96.22 Anxiety disorder F41.9 Bipolar 1 disorder F31.9 Asthma-COPD overlap syndrome J44.9
[2022-03-27] VITALS (20 sets, daily range): BP systolic 112–185; BP diastolic 60–110; PULSE 73–132; RESP 14–24; TEMP 36.6–36.8; O2SAT 93–100
[2022-03-27] MEDS: HYDROcodone-acetaminophen 10-325 mg Tablet 1 TAB PO ×2 (03:10→20:13)
[2022-03-27] MEDS: heparin 5,000 unit/mL INJ 1 mL 5000 UNIT SUBCUT (04:57)
[2022-03-27 05:52] LABS: Basophils % 0.1 %; Hematocrit 35.7 % (37.0-47.0); Hemoglobin 11.6 g/dL (11.5-15.3); Lymphocytes # 0.6 10^3/uL (0.8-4.8); Lymphocytes % 2.9 %; Mean Corpuscular HGB Conc 32.5 g/dL (30.0-36.0); Mean Corpuscular Hemoglobin 32.4 pg (28.0-34.0); Mean Corpuscular Volume 99.7 fl (81-99); Mean Platelet Volume 10.4 fL (7.4-10.4); Monocytes # 0.4 10^3/uL (0.2-0.9); Monocytes % 2.2 %; Neutrophils # 17.94 10^3/uL (1.8-7.7); Neutrophils % 94.4 %; Nucleated Red Blood Cells % 0 %; Platelet Count 304 10^3/cmm (130-400); Red Blood Count 3.58 10^6/uL (4.1-5.3); Red Cell Distribution Width 14.3 % (12.1-15.1)
[2022-03-27 06:13] LABS: Alanine Aminotransferase 13 U/L (0-33); Albumin Level 3.9 g/dL (3.5-5.2); Alkaline Phosphatase 55 U/L (35-105); Aspartate Amino Transferase 17 U/L (0-32); Blood Urea Nitrogen 15 mg/dL (8-23); Carbon Dioxide 28 mmol/L (22-29); Chloride 102 mmol/L (98-107); Globulin 1.7 g/dL (1.3-4.6); Glucose 152 mg/dL (65-115); Magnesium 2.1 mg/dL (1.7-2.3); Osmolality Calculated 294 mOsm/kg (285-295); Sodium 140 mmol/L (136-145); Total Bilirubin 0.6 mg/dL (0.15-1.2); Total Protein 5.6 g/dL (6.6-8.7)
[2022-03-27 06:16] LABS: Anion Gap 14.2 (5-19); Potassium 4.2 mmol/L (3.5-5.1)
[2022-03-27] MEDS: ipratropium-albuterol 3 mL Neb INHALATION ×4 (08:02→20:30)
[2022-03-27] MEDS: fluoxetine 20 mg Capsule 40 MG PO (09:12)
[2022-03-27] MEDS: roflumilast 500 mcg Tablet PO (09:12)
[2022-03-27] MEDS: escitalopram 10 mg Tablet PO (09:12)
[2022-03-27] MEDS: levothyroxine 125 mcg Tablet PO (09:12)
[2022-03-27] MEDS: levofloxacin-dextrose 5 % 750 MG/150 ML PREMIX 100 MG IV (09:14)
[2022-03-27] MEDS: CLONazepam 1 mg Tablet PO ×2 (09:20→20:14)
[2022-03-27] MEDS: FUROsemide 10 mg/mL SDV 4mL 40 MG IVP (11:26)
[2022-03-27] MEDS: ALPRAZolam 0.5 mg Tablet PO (11:28)
--- NOTE | 2022-03-27 17:03 | P.PN_ITS ---
Subjective Subjective: Hospital course, labs appreciated. On examination patient lying comfortably in bed on BiPAP. Patient is waking up on physical stimuli. Saturating well over 95% on BiPAP. During the day FiO2 on BiPAP turned down. Denies any nausea vomiting, headache, chest pain. Vitals/I&O/Wt Last Vital Signs Temp 98.2 F 03/27/22 11:37 Pulse 100 03/27/22 16:00 Resp 21 H 03/27/22 16:00 BP 134/77 03/27/22 16:00 Pulse Ox 93 03/27/22 16:00 O2 Del Method 03/27/22 16:00 O2 Flow Rate 6 03/27/22 07:24 FiO2 35 03/27/22 15:40 03/27/22 03/27/22 03/27/22 06:59 14:59 22:59 Intake Total 60 / 1896.25 1150 / 1150 Output Total 75 / 325 Balance -15 / 1571.25 1150 / 1150 Weight last 48 hrs Weight 77.836 kg Weight 68.039 kg Physical Exam Narrative: Continues on BiPAP. Const: COMMON NORMALS: patient oriented x3 and alert GENERAL APPEARANCE: cooperative ORIENTATION/CONSCIOUSNESS: Yes awake HENMT: COMMON NORMALS: oropharynx normal Neck/C-Spine: COMMON NORMALS: no JVD Resp: COMMON NORMALS: normal respiratory effort AUSCULTATION: diminished eric ng sounds Cardio: COMMON NORMALS: no JVD, regular rhythm, S1 normal heart sound present, S2 normal heart sound present and No murmurs present (Cardio) RHYTHM: regular rhythm HEART SOUNDS: S1 normal heart sound present and S2 normal heart sound present GI: COMMON NORMALS: Normal to inspection, nondistended, normoactive bowel sounds present, Soft to palpation and non-tender PALPATION: Yes Soft to palpation Extremity: COMMON NORMALS: no joint enlargement and no pedal edema Neuro: COMMON NORMALS: patient oriented x3 and moves all extremities SENSORIUM/ORIENTATION: Yes alert Skin: COMMON NORMALS: no rashes or lesions noted GENERAL SKIN EXAM: no rashes or lesions noted Data 03/27/22 05:38 03/27/22 05:38 Micro: Microbiology 03/26/22 05:28 Blood Culture - Preliminary Blood NEGATIVE TO DATE 03/26/22 05:10 Blood Culture - Preliminary Blood NEGATIVE TO DATE A&P Assessment and plan (1) Acute exacerbation of chronic obstructive airways disease: (2) Chronic respiratory failure with hypoxia: (3) COPD (chronic obstructive pulmonary disease): (4) Acute on chronic respiratory failure with hypoxia and hypercapnia: (5) Anxiety disorder: (6) Bipolar 1 disorder: (7) Asthma-COPD overlap syndrome: Plan Chronic pain: Reports chronic neck and back pain. At home she occasionally takes up to 2 mg tablets of hydrocodone-acetaminophen at the same time to help break the pain and give her relief. Ordered additional dose x1. #End-stage COPD with exacerbation #On chronic steroids #Previously on hospice #End-stage COPD #Anxiety bipolar disorder Continue with DuoNebs every 6, definitely twice daily. For now continue with Solu-Medrol 40 mg every 6 hourly. Oxygen supplementation keeping saturation over 85%. Continue with anxiety medications at home dose. Take Klonopin 1 mg 4 times daily as needed, [place] 10 mg 1 tablet 4 times daily as needed. Low chances of pneumonia for now. Continue Levaquin for now. Follow-up sputum culture. Continue the chronic medications. As per window caser patient is apparently on hospice currently with come passes. We will confirm the CODE STATUS and hospice status with patient. Full code DVT prophylaxis: Heparin SQ twice daily Attestations Medical Necessity Statement*: Requires further hospitalization for management of hypercapnic hypoxic respiratory failure in setting of end-stage COPD Time Spent in Patient Care: Greater than 35 minutes Coding Level of Care Code Acute Technical Support Manager for [facility] Fwd Exam Comprehensive Diagnoses Acute exacerbation of chronic obstructive airways disease J44.1 Chronic respiratory failure with hypoxia J96.11 COPD (chronic obstructive pulmonary disease) J44.9 Acute on chronic respiratory failure with hypoxia and hypercapnia J96.21; J96.22 Anxiety disorder F41.9 Bipolar 1 disorder F31.9 Asthma-COPD overlap syndrome J44.9
[2022-03-27] MEDS: aspirin 81 mg EC Tablet PO (20:13)
[2022-03-28] VITALS (16 sets, daily range): BP systolic 101–162; BP diastolic 56–98; PULSE 63–102; RESP 13–18; TEMP 36.6–36.7; O2SAT 93–100
[2022-03-28] MEDS: HYDROcodone-acetaminophen 10-325 mg Tablet 1 TAB PO (00:20)
[2022-03-28] MEDS: ALPRAZolam 0.5 mg Tablet PO ×2 (00:51→08:24)
[2022-03-28] MEDS: CLONazepam 1 mg Tablet PO ×3 (02:48→22:24)
[2022-03-28] MEDS: heparin 5,000 unit/mL INJ 1 mL 5000 UNIT SUBCUT (05:25)
[2022-03-28] MEDS: fluoxetine 20 mg Capsule 40 MG PO (05:25)
[2022-03-28 05:49] LABS: Basophils % 0.1 %; Hematocrit 34.4 % (37.0-47.0); Hemoglobin 11.2 g/dL (11.5-15.3); Lymphocytes # 0.4 10^3/uL (0.8-4.8); Lymphocytes % 2.4 %; Mean Corpuscular HGB Conc 32.6 g/dL (30.0-36.0); Mean Corpuscular Hemoglobin 31.8 pg (28.0-34.0); Mean Corpuscular Volume 97.7 fl (81-99); Mean Platelet Volume 10.7 fL (7.4-10.4); Monocytes # 0.6 10^3/uL (0.2-0.9); Neutrophils # 17.46 10^3/uL (1.8-7.7); Neutrophils % 93.8 %; Nucleated Red Blood Cells % 0 %; Platelet Count 324 10^3/cmm (130-400); Red Blood Count 3.52 10^6/uL (4.1-5.3); Red Cell Distribution Width 14.5 % (12.1-15.1); White Blood Count 18.6 10^3/uL (4.0-10.0)
[2022-03-28 06:31] LABS: Alanine Aminotransferase 12 U/L (0-33); Albumin Level 3.7 g/dL (3.5-5.2); Alkaline Phosphatase 54 U/L (35-105); Anion Gap 8.5 (5-19); Aspartate Amino Transferase 16 U/L (0-32); Blood Urea Nitrogen 22 mg/dL (8-23); Calcium 9.8 mg/dL (8.5-10.5); Carbon Dioxide 35 mmol/L (22-29); Chloride 101 mmol/L (98-107); Globulin 2.2 g/dL (1.3-4.6); Glucose 151 mg/dL (65-115); Osmolality Calculated 298 mOsm/kg (285-295); Potassium 3.5 mmol/L (3.5-5.1); Sodium 141 mmol/L (136-145); Total Bilirubin 0.7 mg/dL (0.15-1.2); Total Protein 5.9 g/dL (6.6-8.7)
[2022-03-28] MEDS: ipratropium-albuterol 3 mL Neb INHALATION ×4 (07:38→22:57)
[2022-03-28] MEDS: escitalopram 10 mg Tablet PO (08:23)
[2022-03-28] MEDS: levothyroxine 125 mcg Tablet PO (08:23)
[2022-03-28] MEDS: FUROsemide 10 mg/mL SDV 4mL 40 MG IVP (08:23)
[2022-03-28] MEDS: roflumilast 500 mcg Tablet PO (08:24)
[2022-03-28] MEDS: levofloxacin-dextrose 5 % 750 MG/150 ML PREMIX 100 MG IV (08:24)
[2022-03-28] MEDS: HYDROcodone-acetaminophen 10-325 mg Tablet 2 TAB PO ×3 (10:22→22:24)
--- NOTE | 2022-03-28 11:04 | PC.CHAP ---
Pastoral Care Encounter/Spiritual Assessment Type of Contact [] Declined director post visit [] Patient/Family/Request visit [] Outpatient visit [] Follow-up visit [] Physician referral [] Code/Alert [x] Routine visit [] Staff referral [] Actively dying [] Patient sleeping [] Family support [] [] Out of room [] Palliative care [] [] Receiving care in room [] Pre-surgical visit [] Trauma [] Long length of stay [] ICU visit [] Other: Relational/Emotional Strength [x] Patient feels connected with others/family/visitors/staff [] Distress [] Loneliness/isolation [] Abandonment Spirituality of Patient [x] Person of Rylee [] Attends Congregation of their Rylee [x] Believes in Prayer [] Reads Bible or Voodoo materials [] There are Spiritual issues to be addressed Electrical Maintenance Technician Interventions x[] Prayer [x] Active listening [] Non-anxious presence [] Spiritual/emotional support [] Crisis/trauma care [] Spiritual counseling [] Bereavement support [] Provided bereavement packet [] Provided Bible/devotional materials [] Provided toy/stuffed animal, coloring book to patient or family member [] Provided Communion [] Anointing/[place] [] Salvation [x] Completed spiritual assessment [] Other: Impact on Illness or Injury [] Angry [] Fearful [] Anxious [] Often cries [] Exhaustion [] Unable to work [] Unable to attend lutheran [] Unable to walk/stand [] Unable to read [] Unable to drive [] Unable to eat/drink [] Unable to sleep [] Unable to be with family [] Patient intubated [] Other: Summary Time spent with patient 10 miun
--- NOTE | 2022-03-28 16:08 | PM.PN ---
Subjective Subjective: No acute events overnight. Patient is a lot more awake and alert today. Taken off BiPAP and placed on high flow nasal cannula off 4 L saturating more than 90%. Less anxious. Denies any nausea vomiting, headache. States she does have BiPAP at home which she is not able to use. Also states she is also on hospice with compresses. Discussed CODE STATUS in detail with the patient. Does not want intubation at any cost. CODE STATUS changed to limited resuscitation. Vitals/I&O/Wt Last Vital Signs Temp 98.1 F 03/28/22 11:56 Pulse 102 H 03/28/22 15:40 Resp 18 03/28/22 15:40 BP 153/83 03/28/22 11:56 Pulse Ox 95 03/28/22 15:40 O2 Del Method 03/28/22 15:40 O2 Flow Rate 4 03/28/22 15:40 FiO2 30 03/28/22 07:44 03/28/22 03/28/22 03/28/22 06:59 14:59 22:59 Intake Total 320 / 1590 150 / 150 Balance 320 / 1590 150 / 150 Physical Exam Narrative: On nasal cannula Const: COMMON NORMALS: patient oriented x3 and alert GENERAL APPEARANCE: cooperative ORIENTATION/CONSCIOUSNESS: Yes awake HENMT: COMMON NORMALS: oropharynx normal Neck/C-Spine: COMMON NORMALS: no JVD Resp: COMMON NORMALS: normal respiratory effort AUSCULTATION: diminished lung sounds Cardio: COMMON NORMALS: no JVD, regular rhythm, S1 normal heart sound present, S2 normal heart sound present and No murmurs present (Cardio) RHYTHM: regular rhythm HEART SOUNDS: S1 normal heart sound present and S2 normal heart sound present GI: COMMON NORMALS: Normal to inspection, nondistended, normoactive bowel sounds present, Soft to palpation and non-tender PALPATION: Yes Soft to palpation Extremity: COMMON NORMALS: no joint enlargement and no pedal edema Neuro: COMMON NORMALS: patient oriented x3 and moves all extremities SENSORIUM/ORIENTATION: Yes alert Skin: COMMON NORMALS: no rashes or lesions noted GENERAL SKIN EXAM: no rashes or lesions noted Data 03/28/22 05:13 03/28/22 05:15 A&P Assessment and plan (1) Acute exacerbation of chronic obstructive airways disease: (2) Chronic respiratory failure with hypoxia: (3) COPD (chronic obstructive pulmonary disease): (4) Acute on chronic respiratory failure with hypoxia and hypercapnia: (5) Anxiety disorder: (6) Bipolar 1 disorder: (7) Asthma-COPD overlap syndrome: Plan Chronic pain: Reports chronic neck and back pain. At home she occasionally takes up to 2 mg tablets of hydrocodone-acetaminophen at the same time to help break the pain and give her relief. Ordered additional dose x1. #End-stage COPD with exacerbation #On chronic steroids #Previously on hospice #End-stage COPD #Anxiety bipolar disorder Continue with DuoNebs every 6, Pulmicort twice daily. Wean Solu-Medrol to 40 mg every 12 hourly. Oxygen supplementation keeping saturation over 85%. Continue with anxiety medications at home dose. She states that she take Klonopin 2 mg mg 4 times daily as needed, [place] 20 mg mg 1 tablet 4 times daily as needed. Continue Klonopin at 1 mg and increase [place] to 20 mg 4 times daily as needed. Low chances of pneumonia for now. Continue Levaquin for now. Follow-up sputum culture. Continue the chronic medications. Patient confirms she is at hospice status with compresses at home. CODE STATUS changed to limited resuscitation. DVT prophylaxis: Heparin SQ twice daily Attestations Medical Necessity Statement*: Requires further hospitalization for management of hypoxic and hypercapnic respiratory failure in setting of end-stage COPD, anxiety Time Spent in Patient Care: Greater than 35 minutes Coding Level of Care Code Acute Hot End Operator for Ji Melgar Diagnoses Acute exacerbation of chronic obstructive airways disease J44.1 Chronic respiratory failure with hypoxia J96.11 COPD (chronic obstructive pulmonary disease) J44.9 Acute on chronic respiratory failure with hypoxia and hypercapnia J96.21; J96.22 Anxiety disorder F41.9 Bipolar 1 disorder F31.9 Asthma-COPD overlap syndrome J44.9
[2022-03-28] MEDS: aspirin 81 mg EC Tablet PO (20:11)
[2022-03-29 03:59] VITALS: BP 148/76; PULSE 76; RESP 16; TEMP 36.6; O2SAT 93
[2022-03-29] MEDS: CLONazepam 1 mg Tablet PO (04:40)
[2022-03-29] MEDS: HYDROcodone-acetaminophen 10-325 mg Tablet 2 TAB PO ×3 (04:40→15:41)
[2022-03-29 08:00] VITALS: BP 142/69; PULSE 55; RESP 17; TEMP 36.7; O2SAT 95
[2022-03-29 08:28] VITALS: PULSE 57; RESP 18; O2SAT 98
[2022-03-29] MEDS: ipratropium-albuterol 3 mL Neb INHALATION ×2 (08:28→11:39)
--- NOTE | 2022-03-29 09:53 | PM.DCS ---
Discharge Providers Date of Admission: 03/27/22 16:06 Date of Discharge: March 29, 2022 Attending Provider at Admission: Roopa Hearn MD Attending Provider at Discharge: Frank Sanchez MD Primary Care Provider: Carson Murray DO Diagnoses at Discharge Discharge Diagnosis (1) Acute exacerbation of chronic obstructive airways disease: Status: Acute (2) Chronic respiratory failure with hypoxia: Status: Acute (3) COPD (chronic obstructive pulmonary disease): Status: Acute (4) Acute on chronic respiratory failure with hypoxia and hypercapnia: Status: Acute (5) Anxiety disorder: Status: Acute (6) Bipolar 1 disorder: Status: Acute (7) Asthma-COPD overlap syndrome: Status: Acute Reason for Visit Reason for Visit: SOB Brief History: History as per HPI: Socorro Montes De Oca is a 71 year old female with past medical history of end-stage COPD and has been on hospice in the past, anxiety, chronically on home oxygen 6 L at baseline presented to the hospital complaining of shortness of breath.? She says she was short of breath despite using her oxygen.? Denies a cough denies any other symptoms at this time.? Poor historian.? When asked how was her Demetris she stated it is already past Demetris?? Patient is alert oriented x3 but does appear confused.? Denies nausea vomiting fever diarrhea constipation. ED course: On arrival gas was obtained.? 7.58.? He was immediately placed on BiPAP.? Blood pressure 132/95 respiratory 21 WBC count 19.5.? She was given steroids in route.? Chest x-ray shows bilateral lower lobe atelectasis versus pneumonia/infiltrate.? She chronically takes prednisone 10 mg daily.? Initially patient was going to be discharged however once the BiPAP was taken off she started to get very hypoxic again.? Therefore it was decided to admit the patient.? We will administer IV steroids at this time.? Hospitalist was requested to admit the patient. Hospital Course Hospital Course Patient was admitted to the hospital for further management of hypoxic respiratory failure in setting of end-stage COPD. She was started on nebulization treatment along with IV steroids. At first patient was BiPAP dependent but later resolved and improved to baseline oxygen supplementation. Patient continued to have extensive anxiety during hospitalization for which her home medications were continued. On further interview patient did state that she is still on hospice would not want to be intubated. does not use BiPAP at home likely in the hospital as BiPAP at home was not working. she takes 20 mg of [place] 4 times daily along with Klonopin 2 mg 4 times daily. She has been discharged home in hemodynamically stable condition with hospice on oral steroid taper and nebulization treatment as before. She is to resume her home dose of chronic steroids once she finishes oral steroid taper. Physical Exam Narrative: On nasal cannula Const: COMMON NORMALS: patient oriented x3 and alert GENERAL APPEARANCE: cooperative ORIENTATION/CONSCIOUSNESS: Yes awake HENMT: COMMON NORMALS: oropharynx normal Neck/C-Spine: COMMON NORMALS: no JVD Resp: COMMON NORMALS: normal respiratory effort AUSCULTATION: diminished lung sounds Cardio: COMMON NORMALS: no JVD, regular rhythm, S1 normal heart sound present, S2 normal heart sound present and No murmurs present (Cardio) RHYTHM: regular rhythm HEART SOUNDS: S1 normal heart sound present and S2 normal heart sound present GI: COMMON NORMALS: Normal to inspection, nondistended, normoactive bowel sounds present, Soft to palpation and non-tender PALPATION: Yes Soft to palpation Extremity: COMMON NORMALS: no joint enlargement and no pedal edema Neuro: COMMON NORMALS: patient oriented x3 and moves all extremities SENSORIUM/ORIENTATION: Yes alert Skin: COMMON NORMALS: no rashes or lesions noted GENERAL SKIN EXAM: no rashes or lesions noted Discharge Data Studies Completed and Pending Completed Studies During Hospitalization Category Date Time Status XR chest 1V portable [id number] Stat Exams 03/26/22 02:08 Completed Pending at discharge Category Date Time Status Blood Culture Stat Lab 03/26/22 05:28 Results COVID OZH [Coronavirus PCR] Routine Lab 03/26/22 04:54 Uncollected Influenza A&B by IFA Routine Lab 03/26/22 04:54 Uncollected Radiology Impressions Chest X-Ray 03/26/22 02:08 IMPRESSION: Minimally to mildly increased bilateral lung base hazy reticular opacities, compatible with increased atelectasis and or infiltrate. Correlate and follow-up as clinically indicated. Laboratory Results WBC 18.6 10^3/uL (4.0-10.0) H 03/28/22 05:13 RBC 3.52 10^6/uL (4.1-5.3) L 03/28/22 05:13 Hgb 11.2 g/dL (11.5-15.3) L 03/28/22 05:13 Hct 34.4 % (37.0-47.0) L 03/28/22 05:13 MCV 97.7 fl (81-99) 03/28/22 05:13 MCH 31.8 pg (28.0-34.0) 03/28/22 05:13 MCHC 32.6 g/dL (30.0-36.0) 03/28/22 05:13 RDW 14.5 % (12.1-15.1) 03/28/22 05:13 Plt Count 324 10^3/cmm (130-400) 03/28/22 05:13 MPV 10.7 fL (7.4-10.4) H 03/28/22 05:13 Neut % (Auto) 93.8 % 03/28/22 05:13 Lymph % (Auto) 2.4 % 03/28/22 05:13 [place] % (Auto) 3.0 % 03/28/22 05:13 Eos % (Auto) 0.0 % 03/28/22 05:13 Baso % (Auto) 0.1 % 03/28/22 05:13 Neut # (Auto) 17.46 10^3/uL (1.8-7.7) H 03/28/22 05:13 Lymph # (Auto) 0.4 10^3/uL (0.8-4.8) L 03/28/22 05:13 [place] # (Auto) 0.6 10^3/uL (0.2-0.9) 03/28/22 05:13 Eos # (Auto) 0.0 10^3/uL (0.0-0.8) 03/28/22 05:13 Baso # (Auto) 0.0 10^3/uL (0.0-0.1) 03/28/22 05:13 Nucleated RBC % (auto) 0 % 03/28/22 05:13 Nucleated RBCs # 0.0 /100WBC 03/28/22 05:13 Specimen Type Arterial 03/26/22 02:00 Sample Site Radial, right 03/26/22 02:00 ABG pH 7.25 (7.35-7.45) L 03/26/22 02:00 ABG pCO2 72.1 mmHg (35-45) H* 03/26/22 02:00 ABG pO2 67.9 mmHg (80.0-100.0) L 03/26/22 02:00 ABG HCO3 31.4 mmol/L (22-26) H 03/26/22 02:00 ABG Base Excess 2.2 mmol/L (-2.0-2.0) H 03/26/22 02:00 Stephen Test Pos 03/26/22 02:00 Hematocrit 38.8 % (37-47) 03/26/22 02:00 O2 Delivery Device Nc 03/26/22 02:00 FiO2 32.0 % 03/26/22 02:00 Motorcycle Racer ID Droch 03/26/22 02:00 Sodium 141 mmol/L (136-145) 03/28/22 05:15 Potassium 3.5 mmol/L (3.5-5.1) 03/28/22 05:15 Chloride 101 mmol/L (98-107) 03/28/22 05:15 Carbon Dioxide 35 mmol/L (22-29) H 03/28/22 05:15 Anion Gap 8.5 (5-19) 03/28/22 05:15 BUN 22 mg/dL (8-23) 03/28/22 05:15 Creatinine 0.6 mg/dL (0.5-0.9) 03/28/22 05:15 GFR Calculation Not Reportable 03/28/22 05:15 Glucose 151 mg/dL (65-115) H 03/28/22 05:15 Calculated Osmolality 298 mOsm/kg (285-295) H 03/28/22 05:15 Lactic Acid 0.6 mmol/L (0.5-2.2) 03/26/22 01:59 Calcium 9.8 mg/dL (8.5-10.5) 03/28/22 05:15 Magnesium 2.1 mg/dL (1.7-2.3) 03/27/22 05:38 Total Bilirubin 0.7 mg/dL (0.15-1.2) 03/28/22 05:15 AST 16 U/L (0-32) 03/28/22 05:15 ALT 12 U/L (0-33) 03/28/22 05:15 Alkaline Phosphatase 54 U/L (35-105) 03/28/22 05:15 Total Protein 5.9 g/dL (6.6-8.7) L 03/28/22 05:15 Albumin 3.7 g/dL (3.5-5.2) 03/28/22 05:15 Globulin 2.2 g/dL (1.3-4.6) 03/28/22 05:15 Procalcitonin 0.03 ng/mL (0-0.5) 03/26/22 01:59 Influenza Type A Ag negative (Negative) 03/26/22 02:19 Influenza Type B Ag negative (Negative) 03/26/22 02:19 Vitals Last Vital Signs Temp 98.1 F 03/29/22 08:00 Pulse 57 L 03/29/22 08:28 Resp 18 03/29/22 08:28 BP 142/69 03/29/22 08:00 Pulse Ox 98 03/29/22 08:28 O2 Del Method 03/29/22 08:28 O2 Flow Rate 4 03/28/22 22:53 FiO2 4 03/29/22 08:28 Discharge Plan Discharge Patient Disposition: Hospice - Home Condition: Stable Prescriptions: New prednisone 10 mg tablets,dose pack See Rx Instructions .ROUTE .COMPLEX Qty: 21 0RF Rx Instructions: orally per package directions Continued budesonide-formoterol [Symbicort] 160-4.5 mcg/actuation HFA aerosol inhaler 2 puff INHALATION BID albuterol sulfate [Ventolin HFA] 90 mcg/actuation HFA aerosol inhaler 1 - 2 puff INHALATION Q4H PRN (Reason: Shortness Of Breath) clonazepam 1 mg tablet 1 mg PO QID PRN (Reason: Anxiety) hydrocodone-acetaminophen 10-325 mg Tablet 1 - 2 tab PO QID PRN (Reason: Pain) prednisone 10 mg tablet See Rx Instructions .ROUTE .COMPLEX Rx Instructions: 40 mg x 3 D 20 mg x 3 D 10 mg x daily Stool Softener-Laxative 8.6-50 mg tablet 1 tab PO DAILY Rx Instructions: for 14 days fluoxetine 40 mg capsule 40 mg PO QAM aspirin 81 mg Tablet,Delayed Release (Dr/Ec) 81 mg PO BEDTIME ascorbic acid (vitamin C) [Vitamin C] 500 mg Tablet 500 mg PO DAILY doxepin 10 mg Capsule 10 - 20 mg PO BEDTIME PRN (Reason: sleep/itching) levothyroxine 125 mcg Tablet 125 mcg PO DAILY 30 Days Qty: 30 0RF escitalopram oxalate 10 mg Tablet 10 mg PO DAILY 30 Days Qty: 30 0RF Daliresp 500 mcg Tablet 500 mcg PO DAILY 30 Days Qty: 30 0RF Spiriva Respimat 2.5 mcg/actuation mist 2 inh inhalation Q24H 30 Days Qty: 4 0RF budesonide [Pulmicort] 0.5 mg/2 mL suspension for nebulization 0.25 mg inhalation BID 30 Days Qty: 60 0RF ipratropium-albuterol 0.5 mg-3 mg(2.5 mg base)/3 mL solution for nebulization 3 ml inhalation Q6H PRN (Reason: shortness of breath or wheezing) Qty: 180 0RF Rx Instructions: until breathing returns to target peak flow/parameters formoterol fumarate [Perforomist] 20 mcg/2 mL solution for nebulization 2 ml inhalation BID 30 Days Qty: 120 0RF Yupelri 175 mcg/3 mL solution for nebulization 175 mcg inhalation DAILY 30 Days Qty: 90 0RF Discharge Orders: Discharge Order (Routine); Ordered 03/29/22 Ordered By: Frank Sanchez Other Ambulatory Orders: DME: Oxygen (Order) Location: None Selected Ordered By: Frank Sanchez Referrals: [facility] [Outside] Discharge Diet: Cardiac Discharge Activity: Resume usual activity and Increase activity as tolerated Patient Instructions: Prednisone (By mouth), Opioid Safety Activity Restrictions/Additional Instructions: Please continue hospice services as before. Finish the steroid taper as below. Please continue using BiPAP as before. Discharge Attestations Time Spent in Discharge Care*: greater than 30 min Specific Discharge Activities: educating patient, discussing with family caseworker/social workers/dc planners, documenting/other paperwork and evaluating patient/reviewing data Status at Discharge: Cognitive status at discharge: mildly impaired cognition, Behavioral status at discharge: can be uncooperative, Functional status at discharge: uses cane/walker, Overall status at discharge: patient is back to baseline Quality Metrics Clinical Quality Measures [ No reported AMI, CVA or VTE this stay] Coding Level of Care Code Acute Chg FW DC note History Detailed Exam Comprehensive Diagnoses Acute exacerbation of chronic obstructive airways disease J44.1 Chronic respiratory failure with hypoxia J96.11 COPD (chronic obstructive pulmonary disease) J44.9 Acute on chronic respiratory failure with hypoxia and hypercapnia J96.21; J96.22 Anxiety disorder F41.9 Bipolar 1 disorder F31.9 Asthma-COPD overlap syndrome J44.9
[2022-03-29] MEDS: roflumilast 500 mcg Tablet PO (10:52)
[2022-03-29] MEDS: fluoxetine 20 mg Capsule 40 MG PO (10:52)
[2022-03-29] MEDS: levofloxacin-dextrose 5 % 750 MG/150 ML PREMIX 100 MG IV (10:53)
[2022-03-29] MEDS: levothyroxine 125 mcg Tablet PO (10:53)
[2022-03-29] MEDS: escitalopram 10 mg Tablet PO (10:53)
[2022-03-29 11:41] VITALS: PULSE 94; RESP 18; O2SAT 92
[2022-03-29 12:00] VITALS: BP 158/75; PULSE 90; RESP 17; TEMP 36.5; O2SAT 96
[2022-03-29 13:26] VITALS: O2SAT 86; O2SAT 93
== END 2022-03-29 15:50 | disposition hospice, home (50) | DRG 190 ==
LOC: ER 05:18 → MEDSURG 06:24
PROVIDERS: Admitting Provider Internal Medicine; Emergency Provider Emergency Medicine; PCP Family Medicine; Visit Provider Student in an Organized Health Care Education/Training Program
DX: J44.1 Chronic obstructive pulmonary disease with (acute) exacerbation (principal); J96.21 Acute and chronic respiratory failure with hypoxia; J96.22 Acute and chronic respiratory failure with hypercapnia; F41.9 Anxiety disorder, unspecified; F31.9 Bipolar disorder, unspecified; Z99.81 Dependence on supplemental oxygen; Z79.51 Long term (current) use of inhaled steroids; Z79.891 Long term (current) use of opiate analgesic; Z79.52 Long term (current) use of systemic steroids; Z79.82 Long term (current) use of aspirin; Z87.891 Personal history of nicotine dependence
CPT/HCPCS: 36415; 36600; 71045; 80048; 80053; 82803; 83605; 83735; 84145; 85025; 87040; 87804; 93005; 94640; 94660; 94664; 94760; 94762; 96365; 96372; 96375; 97165; 99285; G0378; J1644; J1940; J1956; J2920; J2930; J7030

== ENCOUNTER 2022-04-23 05:40 | Inpatient (IN) | payer MEDICARE, SELFPAY ==
[2022-04-23] VITALS (15 sets, daily range): BP systolic 115–137; BP diastolic 62–84; PULSE 88–129; RESP 10–23; TEMP 36.3–36.7; O2SAT 93–100; BMI 26.5
--- NOTE | 2022-04-23 05:46 | ECG_ITS ---
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 Measurements Intervals [place] Rate: 119 P: 89 [place]: 128 QRS: 62 QRSD: 77 T: 76 QT: 308 QTc: 435 Interpretive Statements SINUS TACHYCARDIA POSSIBLE RIGHT VENTRICULAR CONDUCTION DELAY [RSR (QR) IN V1/V2] ABNORMAL RHYTHM ECG Compared to ECG 03/26/2022 03:16:45 Sinus rhythm no longer present Electronically Signed On 04-23-2022 8:48:41 VIDEO GAME ENGINEER by Marcy Davalos M.D. [id number]
--- NOTE | 2022-04-23 05:49 | XRR_ITS ---
PROCEDURE INFORMATION: Exam: XR Chest Exam date and time: 04/23/2022 6:11 AM Age: 71 years old Clinical indication: Shortness of breath; Additional info: SOB TECHNIQUE: Imaging protocol: Radiologic exam of the chest. Views: 1 view. COMPARISON: CR (CHEST, ) 03/26/2022 2:21 AM FINDINGS: Lungs: Unremarkable. No consolidation. Pleural spaces: Unremarkable. No pleural effusion. No pneumothorax. Heart/Mediastinum: Unremarkable. No cardiomegaly. Bones/joints: Unremarkable. XR/XR chest 1V portable [id number] IMPRESSION: No acute findings.
--- NOTE | 2022-04-23 05:54 | ED_ITS ---
Documented by User: Ron Calderon, 04/23/22 18:03 HPI - SOB/Dyspnea General: Chief Complaint: Shortness of Breath/Dyspnea Stated Complaint: SOB Time Seen by Provider: 04/23/22 05:45 Source: patient History of Present Illness: HPI Narrative: 71-year-old female with a history of end-stage COPD. She states that she is on hospice still. She presents with sudden onset shortness of breath this morning. Her chest was tight, but not painful. She notes that she was coughing up some foam . No fever. In route, she received terbutaline, albuterol and DuoNeb treatments, and oxygen, which she prefers to wear by nasal cannula in her mouth. MD elicited complaint: shortness of breath and cough Pertinent past history: COPD Onset (ago): minute(s) Timing: constant Severity: moderate Exacerbating factors: lying flat, exertion and stress Relieving factors: oxygen and bronchodilators Known history of: COPD Associated symptoms: Reports chest congestion and cough; Deny abdominal pain, chest pain, fever(s), nausea or vomiting Treatment prior to arrival: oxygen, bronchodilator and other Review of Systems Const: Denies: fever(s) Card: Denies: chest pain Resp: Reports: dyspnea, productive cough and chest congestion GI: Denies: abdominal pain, nausea or vomiting Psych: Reports: anxiety PFSH ED PFSH: Medical History Chronic respiratory failure with hypoxia COPD (chronic obstructive pulmonary disease) Panic anxiety syndrome Surgical History History of appendectomy History of cholecystectomy History of hysterectomy Hx of tonsillectomy Social History Smoking and tobacco status: former smoker Quit status (tobacco): has quit using tobacco Year quit tobacco: 2015 - 1PPD x 40 Years Alcohol intake: never Lives independently: Yes Household members: none Current occupational status: disabled Pets and animals: Yes Pets & animals: dog(s) History of recent travel: No Current gender identity: Female Physical Exam Const: GENERAL APPEARANCE: ill appearing and frail appearing; not comfortable HENMT: COMMON NORMALS: normocephalic and Normal external nose present HEAD & SCALP: normocephalic FACE & SINUS: normal facial exam NOSE: Normal external nose present Eye: COMMON NORMALS: Equal, round and reactive pupils present and EOMs intact bilaterally PUPIL: Yes Equal, round and reactive pupils present Chest: CHEST: Yes Symmetrical chest wall rise Resp: EFFORT & INSPECTION: Yes tachypneic and Yes uses accessory muscles AUSCULTATION: wheezes Cardio: COMMON NORMALS: regular rhythm RATE: tachycardic RHYTHM: regular rhythm GI: COMMON NORMALS: Normal to inspection, nondistended, normoactive bowel sounds present and Soft to palpation PALPATION: Yes Soft to palpation Extremity: COMMON NORMALS: no pedal edema Neuro: ARLIN COMA SCALE: document GCS findings [place] coma scale eye opening: Spontaneous Arlin coma scale verbal response: Orientated [place] coma scale motor response: Obey commands [place]lin coma scale total score: 15 Psych: COMMON NORMALS: mental status grossly normal Course Vital Signs: Vital signs: Vital Signs Temperature 98.0 F 04/23/22 11:56 Pulse Rate 103 H 04/23/22 15:08 Respiratory Rate 20 H 04/23/22 13:37 Blood Pressure 115/73 04/23/22 11:56 Pulse Oximetry 96 04/23/22 15:08 Oxygen Delivery Me thod 04/23/22 13:37 Fraction of Inspir ed Oxygen 30 04/23/22 15:08 MDM - SOB/Dyspnea Medical Decision Making 71-year-old lady with end-stage COPD. She presents short of breath. She is already refused her blood gas. She is placed on BiPAP on arrival in the ER. She is given Solu-Medrol here. She has had breathing treatments and terbutaline in route. No fever. Awaiting blood work and chest x-ray. She is tachycardic and tachypneic, although her oxygen saturation is 96 to 100% on 8 L nasal cannula through her mouth. She will be checked out to the oncoming physician at shift change pending laboratory studies. Lab Data 04/23/22 05:50 04/23/22 05:50 Labs/Radiology: Radiology Impressions Chest X-Ray 04/23/22 05:49 IMPRESSION: No acute findings. Laboratory Results WBC 5.3 10^3/uL (4.0-10.0) 04/23/22 05:50 RBC 4.26 10^6/uL (4.1-5.3) 04/23/22 05:50 Hgb 13.4 g/dL (11.5-15.3) 04/23/22 05:50 Hct 43.5 % (37.0-47.0) 04/23/22 05:50 MCV 102.1 fl (81-99) H 04/23/22 05:50 MCH 31.5 pg (28.0-34.0) 04/23/22 05:50 MCHC 30.8 g/dL (30.0-36.0) 04/23/22 05:50 RDW 14.9 % (12.1-15.1) 04/23/22 05:50 Plt Count 506 10^3/cmm (130-400) H 04/23/22 05:50 MPV 9.7 fL (7.4-10.4) 04/23/22 05:50 Neut % (Auto) 54.8 % 04/23/22 05:50 Lymph % (Auto) 18.3 % 04/23/22 05:50 [place] % (Auto) 10.1 % 04/23/22 05:50 Eos % (Auto) 15.8 % 04/23/22 05:50 Baso % (Auto) 0.8 % 04/23/22 05:50 Neut # (Auto) 2.88 10^3/uL (1.8-7.7) 04/23/22 05:50 Lymph # (Auto) 1.0 10^3/uL (0.8-4.8) 04/23/22 05:50 [place] # (Auto) 0.5 10^3/uL (0.2-0.9) 04/23/22 05:50 Eos # (Auto) 0.8 10^3/uL (0.0-0.8) 04/23/22 05:50 Baso # (Auto) 0.0 10^3/uL (0.0-0.1) 04/23/22 05:50 Nucleated RBC % (auto) 0 % 04/23/22 05:50 Nucleated RBCs # 0.0 /100WBC 04/23/22 05:50 Specimen Type Arterial 04/23/22 08:15 Sample Site Radial, right 04/23/22 08:15 ABG pH 7.42 (7.35-7.45) 04/23/22 08:15 ABG pCO2 50.9 mmHg (35-45) H 04/23/22 08:15 ABG pO2 82.1 mmHg (80.0-100.0) 04/23/22 08:15 ABG HCO3 32.8 mmol/L (22-26) H 04/23/22 08:15 ABG Base Excess 7.0 mmol/L (-2.0-2.0) H 04/23/22 08:15 Stephen Test Pos 04/23/22 08:15 Hematocrit 37.0 % (37-47) 04/23/22 08:15 Hgb O2 Saturation 95.5 % (95-100) 04/23/22 08:15 Carboxyhemoglobin 1.0 %THgb (0.4-20.1) 04/23/22 08:15 Methemoglobin 0.4 % (0.4-1.5) 04/23/22 08:15 Total Hemoglobin 12.1 g/dL (12-16) 04/23/22 08:15 O2 Delivery Device Bipap 04/23/22 08:15 FiO2 30.0 % 04/23/22 08:15 Metallurgical Lab Technician ID Cak 04/23/22 08:15 Sodium 139 mmol/L (136-145) 04/23/22 05:50 Potassium 3.6 mmol/L (3.5-5.1) 04/23/22 05:50 Chloride 97 mmol/L (98-107) L 04/23/22 05:50 Carbon Dioxide 31 mmol/L (22-29) H 04/23/22 05:50 Anion Gap 14.6 (5-19) 04/23/22 05:50 BUN 11 mg/dL (8-23) 04/23/22 05:50 Creatinine 0.6 mg/dL (0.5-0.9) 04/23/22 05:50 GFR Calculation Not Reportable 04/23/22 05:50 Glucose 109 mg/dL (65-115) 04/23/22 05:50 Calculated Osmolality 288 mOsm/kg (285-295) 04/23/22 05:50 Lactic Acid 1.5 mmol/L (0.5-2.2) 04/23/22 05:50 Calcium 9.5 mg/dL (8.5-10.5) 04/23/22 05:50 Total Bilirubin 0.6 mg/dL (0.15-1.2) 04/23/22 05:50 AST 19 U/L (0-32) 04/23/22 05:50 ALT 8 U/L (0-33) 04/23/22 05:50 Alkaline Phosphatase 87 U/L (35-105) 04/23/22 05:50 NT-Pro-B Natriuret Pep 64 pg/mL (0-125) 04/23/22 05:50 Total Protein 6.8 g/dL (6.6-8.7) 04/23/22 05:50 Albumin 4.0 g/dL (3.5-5.2) 04/23/22 05:50 Globulin 2.8 g/dL (1.3-4.6) 04/23/22 05:50 Discharge Plan Discharge Patient Disposition: Placed in Observation Admit Provider: Vaibhav Allen Clinical Impression: Acute on chronic respiratory failure with hypoxia and hypercapnia, Acute exacerbation of chronic obstructive airways disease, Anxiety disorder, Bipolar 1 disorder Sign Out Sign Out Data: Patient Sign Out occurred on 04/23/22 at 06:41. Patient's care was discussed, and care was transferred from to Alex Romero DO. Coding Level of Care Code ED Poultice Machine Operator for Chg Fwd Exam Comprehensive Documented by User: Alex Romero DO 04/23/22 08:57 HPI - SOB/Dyspnea General: Chief Complaint: Shortness of Breath/Dyspnea Stated Complaint: SOB Time Seen by Provider: 04/23/22 05:45 PFSH ED PFSH: Medical History Chronic respiratory failure with hypoxia COPD (chronic obstructive pulmonary disease) Panic anxiety syndrome Surgical History History of appendectomy History of cholecystectomy History of hysterectomy Hx of tonsillectomy Social History Smoking and tobacco status: former smoker Quit status (tobacco): has quit using tobacco Year quit tobacco: 2014 - 1PPD x 40 Years Alcohol intake: never Lives independently: Yes Household members: none Current occupational status: disabled Pets and animals: Yes Pets & animals: dog(s) History of recent travel: No Current gender identity: Female Physical Exam Neuro: ARLIN COMA SCALE: document GCS findings [place] coma scale total score: 15 Course Vital Signs: Vital signs: Vital Signs Temperature 98.0 F 04/23/22 11:56 Pulse Rate 103 H 04/23/22 15:08 Respiratory Rate 20 H 04/23/22 13:37 Blood Pressure 115/73 04/23/22 11:56 Pulse Oximetry 96 04/23/22 15:08 Oxygen Delivery Me thod 04/23/22 13:37 Fraction of Inspir ed Oxygen 30 04/23/22 15:08 MDM - SOB/Dyspnea Medical Decision Making 71-year-old lady with end-stage COPD. She presents short of breath. She is already refused her blood gas. She is placed on BiPAP on arrival in the ER. She is given Solu-Medrol here. She has had breathing treatments and terbutaline in route. No fever. Awaiting blood work and chest x-ray. She is tachycardic and tachypneic, although her oxygen saturation is 96 to 100% on 8 L nasal cannula through her mouth. She will be checked out to the oncoming physician at shift change pending laboratory studies. Patient care handoff received from Patient seen and examined discussed with her possibility of observation. She is very difficult not she initially is requesting assisted suicide. Advised her we are not able to do that. She has a BiPAP at home but it does not seem to be working adequately for she refused blood gas her serum CO2 is elevated I do believe she would benefit from being on BiPAP for a time. We called hospice and they stated there is a level of admission on observation that she can maintain her hospice care will do that discussed with the let Dr. Allen for the hospitalist service and orders are written later patient took her BiPAP off and stated she wanted to go home but then when we told her that really was not a medicine we can just give her that would fix the problem she agreed to stay on observation. Continuation of ED evaluation. I personally saw and evaluated patient and reperformed allen portions of E/M. Medical Records I reviewed the patient's medical records. Lab Data I reviewed the patient's lab results. 04/23/22 05:50 04/23/22 05:50 Labs/Radiology: Radiology Impressions Chest X-Ray 04/23/22 05:49 IMPRESSION: No acute findings. Laboratory Results WBC 5.3 10^3/uL (4.0-10.0) 04/23/22 05:50 RBC 4.26 10^6/uL (4.1-5.3) 04/23/22 05:50 Hgb 13.4 g/dL (11.5-15.3) 04/23/22 05:50 Hct 43.5 % (37.0-47.0) 04/23/22 05:50 MCV 102.1 fl (81-99) H 04/23/22 05:50 MCH 31.5 pg (28.0-34.0) 04/23/22 05:50 MCHC 30.8 g/dL (30.0-36.0) 04/23/22 05:50 RDW 14.9 % (12.1-15.1) 04/23/22 05:50 Plt Count 506 10^3/cmm (130-400) H 04/23/22 05:50 MPV 9.7 fL (7.4-10.4) 04/23/22 05:50 Neut % (Auto) 54.8 % 04/23/22 05:50 Lymph % (Auto) 18.3 % 04/23/22 05:50 [place] % (Auto) 10.1 % 04/23/22 05:50 Eos % (Auto) 15.8 % 04/23/22 05:50 Baso % (Auto) 0.8 % 04/23/22 05:50 Neut # (Auto) 2.88 10^3/uL (1.8-7.7) 04/23/22 05:50 Lymph # (Auto) 1.0 10^3/uL (0.8-4.8) 04/23/22 05:50 [place] # (Auto) 0.5 10^3/uL (0.2-0.9) 04/23/22 05:50 Eos # (Auto) 0.8 10^3/uL (0.0-0.8) 04/23/22 05:50 Baso # (Auto) 0.0 10^3/uL (0.0-0.1) 04/23/22 05:50 Nucleated RBC % (auto) 0 % 04/23/22 05:50 Nucleated RBCs # 0.0 /100WBC 04/23/22 05:50 Specimen Type Arterial 04/23/22 08:15 Sample Site Radial, right 04/23/22 08:15 ABG pH 7.42 (7.35-7.45) 04/23/22 08:15 ABG pCO2 50.9 mmHg (35-45) H 04/23/22 08:15 ABG pO2 82.1 mmHg (80.0-100.0) 04/23/22 08:15 ABG HCO3 32.8 mmol/L (22-26) H 04/23/22 08:15 ABG Base Excess 7.0 mmol/L (-2.0-2.0) H 04/23/22 08:15 Stephen Test Pos 04/23/22 08:15 Hematocrit 37.0 % (37-47) 04/23/22 08:15 Hgb O2 Saturation 95.5 % (95-100) 04/23/22 08:15 Carboxyhemoglobin 1.0 %THgb (0.4-20.1) 04/23/22 08:15 Methemoglobin 0.4 % (0.4-1.5) 04/23/22 08:15 Total Hemoglobin 12.1 g/dL (12-16) 04/23/22 08:15 O2 Delivery Device Bipap 04/23/22 08:15 FiO2 30.0 % 04/23/22 08:15 Metallurgical Lab Technician ID Cak 04/23/22 08:15 Sodium 139 mmol/L (136-145) 04/23/22 05:50 Potassium 3.6 mmol/L (3.5-5.1) 04/23/22 05:50 Chloride 97 mmol/L (98-107) L 04/23/22 05:50 Carbon Dioxide 31 mmol/L (22-29) H 04/23/22 05:50 Anion Gap 14.6 (5-19) 04/23/22 05:50 BUN 11 mg/dL (8-23) 04/23/22 05:50 Creatinine 0.6 mg/dL (0.5-0.9) 04/23/22 05:50 GFR Calculation Not Reportable 04/23/22 05:50 Glucose 109 mg/dL (65-115) 04/23/22 05:50 Calculated Osmolality 288 mOsm/kg (285-295) 04/23/22 05:50 Lactic Acid 1.5 mmol/L (0.5-2.2) 04/23/22 05:50 Calcium 9.5 mg/dL (8.5-10.5) 04/23/22 05:50 Total Bilirubin 0.6 mg/dL (0.15-1.2) 04/23/22 05:50 AST 19 U/L (0-32) 04/23/22 05:50 ALT 8 U/L (0-33) 04/23/22 05:50 Alkaline Phosphatase 87 U/L (35-105) 04/23/22 05:50 NT-Pro-B Natriuret Pep 64 pg/mL (0-125) 04/23/22 05:50 Total Protein 6.8 g/dL (6.6-8.7) 04/23/22 05:50 Albumin 4.0 g/dL (3.5-5.2) 04/23/22 05:50 Globulin 2.8 g/dL (1.3-4.6) 04/23/22 05:50 Discharge Plan Discharge Patient Disposition: Placed in Observation Admit Provider: Vaibhav Allen Clinical Impression: Acute on chronic respiratory failure with hypoxia and hypercapnia, Acute exacerbation of chronic obstructive airways disease, Anxiety disorder, Bipolar 1 disorder Sign Out Sign Out Data: Patient Sign Out occurred on 04/23/22 at 06:41. Patient's care was discussed, and care was transferred from to Alex Romero DO. Coding Level of Care Code ED Poultice Machine Operator for g Fwd Exam Comprehensive
[2022-04-23 05:57] LABS: Basophils % 0.8 %; Eosinophils # 0.8 10^3/uL (0.0-0.8); Eosinophils % 15.8 %; Hematocrit 43.5 % (37.0-47.0); Hemoglobin 13.4 g/dL (11.5-15.3); Lymphocytes % 18.3 %; Mean Corpuscular HGB Conc 30.8 g/dL (30.0-36.0); Mean Corpuscular Hemoglobin 31.5 pg (28.0-34.0); Mean Corpuscular Volume 102.1 fl (81-99); Mean Platelet Volume 9.7 fL (7.4-10.4); Monocytes # 0.5 10^3/uL (0.2-0.9); Monocytes % 10.1 %; Neutrophils # 2.88 10^3/uL (1.8-7.7); Neutrophils % 54.8 %; Nucleated Red Blood Cells % 0 %; Platelet Count 506 10^3/cmm (130-400); Red Blood Count 4.26 10^6/uL (4.1-5.3); Red Cell Distribution Width 14.9 % (12.1-15.1); White Blood Count 5.3 10^3/uL (4.0-10.0)
--- NOTE | 2022-04-23 06:16 | PC.RESP ---
Pt. refused arterial blood gas. Provider notified. Pt. placed on Bipap.
[2022-04-23 06:20] LABS: Lactic Sepsis W/Reflex 1.5 mmol/L (0.5-2.2)
[2022-04-23 06:29] LABS: Alanine Aminotransferase 8 U/L (0-33); Alkaline Phosphatase 87 U/L (35-105); Anion Gap 14.6 (5-19); Aspartate Amino Transferase 19 U/L (0-32); Blood Urea Nitrogen 11 mg/dL (8-23); Calcium 9.5 mg/dL (8.5-10.5); Carbon Dioxide 31 mmol/L (22-29); Chloride 97 mmol/L (98-107); Creatinine Clr Calc Pharmacy 57.9937; Globulin 2.8 g/dL (1.3-4.6); Glucose 109 mg/dL (65-115); NT Pro B Type Natriuretic Pept 64 pg/mL (0-125); Osmolality Calculated 288 mOsm/kg (285-295); Potassium 3.6 mmol/L (3.5-5.1); Sodium 139 mmol/L (136-145); Total Bilirubin 0.6 mg/dL (0.15-1.2); Total Protein 6.8 g/dL (6.6-8.7)
[2022-04-23 08:27] LABS: ABG PCO2 50.9 mmHg (35-45); ABG PH Result 7.42 (7.35-7.45); Blood Gas Allen Test Pos; Blood Gas Operator Identificat CAK; Blood Gas Sample Site Radial, right; Blood Gas Sample Type Arterial; HCO3 ABG 32.8 mmol/L (22-26); HGB O2 Sat 95.5 % (95-100); Methemoglobin 0.4 % (0.4-1.5); Oxygen Device BIPAP; PO2 ABG 82.1 mmHg (80.0-100.0); Total Hemoglobin 12.1 g/dL (12-16)
--- NOTE | 2022-04-23 11:01 | P.HP_ITS ---
Providers/Chief Complaint Admitting Physician: Vaibhav Allen Primary Care Provider: Carson Murray DO Chief Complaint: SOB History of Present Illness 21-year-old lady with end-stage COPD under care of hospice services was brought into ER for evaluation due to shortness of breath, per report she also has not been using BiPAP at home. In ER she was started on oxygen supplementation initially on 8 L nasal cannula saturating 96-100%, but later started on BiPAP. During my visit she refuses to provide any history, history obtained from ER physician report and notes. Work-up in ER largely unremarkable including chest x-ray. She is on BiPAP at the time of my evaluation. She does confirm presence of her nurse as well that she would not want intubation or chest compression s/CPR in case of cardiopulmonary arrest. Later on I am called with an update that she clarified her CODE STATUS is full code. When asked whether her BiPAP is functioning at home, she states those people were supposed to bring it for me but never did , then clarifies maybe it was just in my head . Confirming with hospice company she does have a BiPAP at home but she does not wear it. Review of Systems General: Reports: ROS unobtainable due to medical condition and ROS unobtainable due to mental status Medications/Allergies Home Medications Medication Instructions Recorded Confirmed Last Taken Type albuterol sulfate 90 mcg/actuation 1 - 2 puff inhalation Q4H PRN 08/21/19 04/23/22 Unknown History aerosol inhaler (Ventolin HFA) Shortness Of Breath budesonide-formoterol HFA 160 2 puff inhalation BID 08/21/19 04/23/22 02/28/22 History mcg-4.5 mcg/actuation aerosol inhaler (Symbicort) clonazepam 1 mg tablet 1 mg PO QID PRN Anxiety 02/07/22 04/23/22 Unknown History hydrocodone 10 mg-acetaminophen 1 - 2 tab PO QID PRN Pain 02/07/22 04/23/22 Unknown History 325 mg tablet ascorbic acid (vitamin C) 500 mg 500 mg PO DAILY 03/08/22 04/23/22 Unknown History tablet (Vitamin C) aspirin 81 mg tablet,delayed 81 mg PO BEDTIME 03/08/22 04/23/22 Unknown History release doxepin 10 mg capsule 10 - 20 mg PO BEDTIME PRN 03/08/22 04/23/22 Unknown History sleep/itching ipratropium 0.5 mg-albuterol 3 mg 3 ml inhalation Q6H PRN shortness 03/10/22 04/23/22 Unknown Rx (2.5 mg base)/3 mL nebulization of breath or wheezing #180 mL soln sennosides 8.6 mg-docusate sodium 1 tab PO DAILY 03/26/22 04/23/22 Unknown History 50 mg tablet (Stool Softener-Laxative) escitalopram oxalate 10 mg tablet 10 mg PO DAILY 04/23/22 04/23/22 Unknown History levothyroxine 125 mcg tablet 125 mcg PO DAILY 04/23/22 04/23/22 Unknown History roflumilast 500 mcg tablet 500 mcg PO DAILY 04/23/22 04/23/22 Unknown History (Daliresp) Allergies Allergy/AdvReac Type Severity Reaction Status Date / Time olanzapine [From Zyprexa] Allergy Severe edema Verified 03/08/22 09:13 PFSH Acute PFSH: Medical History Chronic respiratory failure with hypoxia COPD (chronic obstructive pulmonary disease) Panic anxiety syndrome Surgical History History of appendectomy History of cholecystectomy History of hysterectomy Hx of tonsillectomy Social History Smoking and tobacco status: former smoker Quit status (tobacco): has quit using tobacco Year quit tobacco: 2014 - 1PPD x 40 Years Alcohol intake: never Lives independently: Yes Household members: none Current occupational status: disabled Pets and animals: Yes Pets & animals: dog(s) History of recent travel: No Current gender identity: Female Vitals/I&O/Wt Last Vital Signs Temp 98 F 04/23/22 05:41 Pulse 112 H 04/23/22 10:03 Resp 20 H 04/23/22 10:03 BP 136/70 04/23/22 10:03 Pulse Ox 96 04/23/22 10:03 O2 Del Method 04/23/22 10:17 FiO2 30 04/23/22 07:32 Weight last 48 hrs Weight 68.039 kg Weight 68.039 kg Physical Exam Const: ORIENTATION/CONSCIOUSNESS: Yes awake OTHER: BiPAP Either sleeping or just not wishing to speak as she does answer some questions intermittently. HENMT: COMMON NORMALS: oropharynx normal Neck/C-Spine: COMMON NORMALS: no JVD Resp: AUSCULTATION: wheezes and diminished lung sounds Cardio: COMMON NORMALS: no JVD, regular rhythm, S1 normal heart sound present, S2 normal heart sound present and No murmurs present (Cardio) RHYTHM: regular rhythm HEART SOUNDS: S1 normal heart sound present and S2 normal heart sound present GI: COMMON NORMALS: Normal to inspection, nondistended, normoactive bowel sounds present, Soft to palpation and non-tender PALPATION: Yes Soft to palpation Extremity: COMMON NORMALS: no joint enlargement and no pedal edema Neuro: COMMON NORMALS: moves all extremities SENSORIUM/ORIENTATION: Yes alert Data 04/23/22 05:50 04/23/22 05:50 Micro: Microbiology 04/23/22 05:57 Blood Culture - Preliminary Blood SPECIMEN COLLECTED 04/23/22 05:55 Blood Culture - Preliminary Blood SPECIMEN COLLECTED A&P Assessment and plan (1) COPD (chronic obstructive pulmonary disease): COPD with exacerbation with dyspnea, productive cough, although foamy sputum reported. No reported purulence. For now no antibiotic. Will check rapid flu and COVID. Sputum culture if she is able to provide. Solu-Medrol, duo nebs, inhaled budesonide. BiPAP support at this time, wean down as tolerating to nasal cannula. BiPAP with sleep. Confirmed that she does have BiPAP at home but does not wear it. (2) Chronic respiratory failure with hypoxia: Advanced COPD. (3) Goals of care, counseling/discussion: On hospice prior to admission. Clarifies in ER CODE STATUS as full code. Continue discussions regarding goals of care and her wishes. Plan Panic, anxiety syndrome: Clonazepam as needed. Attestations Medical Necessity Statement*: Admission of over 2 midnights anticipated versus management of COPD exacerbation lady with advanced/end-stage COPD and chronic respiratory failure. Coding Level of Care Code Acute Code for [facility] Fwd Diagnoses COPD (chronic obstructive pulmonary disease) J44.9 Chronic respiratory failure with hypoxia J96.11 Goals of care, counseling/discussion Z71.89
[2022-04-23] MEDS: sodium chloride 0.9% 1,000 ML 100 ML IV (11:27)
[2022-04-23] MEDS: pantoprazole 40 mg SDV IVP (11:27)
[2022-04-23] MEDS: enoxaparin 40 mg/0.4 mL Syringe SUBCUT (11:27)
[2022-04-23] MEDS: HYDROcodone-acetaminophen 10-325 mg Tablet 1 TAB PO ×3 (11:27→21:54)
[2022-04-23] MEDS: CLONazepam 1 mg Tablet PO ×3 (12:46→21:54)
[2022-04-23] MEDS: ipratropium-albuterol 3 mL Neb INHALATION ×2 (13:35→21:38)
[2022-04-23 13:45] LABS: Influenza A by IFA negative (Negative); Influenza B by IFA negative (Negative); SARS Covid-2 Antigen negative (Negative)
--- NOTE | 2022-04-23 14:11 | PC.NURSE ---
Patient stated that her home medications were missing. no home medications were in patients belongings at time of admission to the med surg unit. Shannon BRANDT called the ER, and they also stated that the patient had no home medications upon arrival to the ER. patient notified.
--- NOTE | 2022-04-23 15:35 | PC.NURSE ---
Emilee from [facility] called and updated that patients stay is not approved for GIP. Emilee also stated that they are in the process of trying to get patient approved to go to [facility], and was scheduled for a face to face interview 04/24 with a COMPUTATIONAL THEORY SCIENTIST from [place]. Per Emilee patient does have a BIPAP at home that has been provided by [facility]'s supply company. Emilee also stated that she would check up on patients dogs. patient updated.
[2022-04-23] MEDS: budesonide 0.5 mg/2 mL Neb 0.25 MG INHALATION (21:37)
[2022-04-23] MEDS: aspirin 81 mg EC Tablet PO (21:53)
[2022-04-24] VITALS (10 sets, daily range): BP systolic 117–146; BP diastolic 63–78; PULSE 80–97; RESP 14–21; TEMP 36.1–36.5; O2SAT 92–96
[2022-04-24] MEDS: sodium chloride 0.9% 1,000 ML 100 ML IV ×2 (01:02→10:29)
[2022-04-24] MEDS: ipratropium-albuterol 3 mL Neb INHALATION ×3 (02:20→14:26)
[2022-04-24 08:38] LABS: Anion Gap 11.6 (5-19); Blood Urea Nitrogen 13 mg/dL (8-23); Carbon Dioxide 31 mmol/L (22-29); Chloride 100 mmol/L (98-107); Glucose 143 mg/dL (65-115); Osmolality Calculated 291 mOsm/kg (285-295); Potassium 3.6 mmol/L (3.5-5.1); Sodium 139 mmol/L (136-145)
[2022-04-24] MEDS: budesonide 0.5 mg/2 mL Neb 0.25 MG INHALATION (08:58)
[2022-04-24] MEDS: HYDROcodone-acetaminophen 10-325 mg Tablet 1 TAB PO ×2 (10:23→14:36)
[2022-04-24] MEDS: roflumilast 500 mcg Tablet PO (10:25)
[2022-04-24] MEDS: levothyroxine 125 mcg Tablet PO (10:26)
[2022-04-24] MEDS: escitalopram 10 mg Tablet PO (10:26)
--- NOTE | 2022-04-24 11:35 | P.DS_ITS ---
Discharge Providers Date of Admission: 04/23/22 10:10 Date of Discharge: April 24, 2022 Attending Provider at Admission: Vaibhav Allen Attending Provider at Discharge: Vaibhav Allen Primary Care Provider: Carson Murray DO Diagnoses at Discharge Discharge Diagnosis (1) COPD (chronic obstructive pulmonary disease): Status: Acute (2) Chronic respiratory failure with hypoxia: Status: Acute (3) Goals of care, counseling/discussion: Status: Acute Reason for Visit Reason for Visit: SOB Brief History: 71-year-old lady with end-stage COPD under care of hospice services was brought into ER for evaluation due to shortness of breath, per report she also has not been using BiPAP at home.? In ER she was started on oxygen supplementation initially on 8 L nasal cannula saturating 96-100%, but later started on BiPAP.? During my visit she refuses to provide any history, history obtained from ER physician report and notes.? Work-up in ER largely unremarkable including chest x-ray.? She is on BiPAP at the time of my evaluation.? She does confirm presence of her nurse as well that she would not want intubation or chest compressions/CPR in case of cardiopulmonary arrest.? Later on I am called with an update that she clarified her CODE STATUS is full code. When asked whether her BiPAP is functioning at home, she states those people were supposed to bring it for me but never did , then clarifies maybe it was just in my head . Confirming with hospice company she does have a BiPAP at home but she does not wear it. Hospital Course Hospital Course She received treatment with IV steroids, breathing treatments, BiPAP support, wean down to nasal cannula. Mental status was proved. She sol awake and alert. Condition has improved closer to prior baseline. When asked about how she feels her breathing is states not good, when compared to yesterday though states it is not good. She would like to return home to resume hospice care there. Physical Exam Const: COMMON NORMALS: patient oriented x3 and alert ORIENTATION/CONSCIOUSNESS: Yes awake OTHER: NC in teeth HENMT: COMMON NORMALS: oropharynx normal Neck/C-Spine: COMMON NORMALS: no JVD Resp: AUSCULTATION: no wheezes and diminished lung sounds (less) Cardio: COMMON NORMALS: no JVD, regular rhythm, S1 normal heart sound present, S2 normal heart sound present and No murmurs present (Cardio) RHYTHM: regular rhythm HEART SOUNDS: S1 normal heart sound present and S2 normal heart sound present GI: COMMON NORMALS: Normal to inspection, nondistended, normoactive bowel sounds present, Soft to palpation and non-tender PALPATION: Yes Soft to palpation Extremity: COMMON NORMALS: no joint enlargement and no pedal edema Neuro: COMMON NORMALS: patient oriented x3 and moves all extremities SENSORIUM/ORIENTATION: Yes alert Discharge Data Studies Completed and Pending Completed Studies During Hospitalization Category Date Time Status XR chest 1V portable [id number] Stat Exams 04/23/22 05:49 Completed Pending at discharge Category Date Time Status Basic Metabolic Panel AM LABS Lab 04/25/22 04:00 Ordered Basic Metabolic Panel AM LABS Lab 04/26/22 04:00 Ordered Blood Culture Stat Lab 04/23/22 05:57 Results Sputum Culture and Gram Stain Routine Lab 04/23/22 10:55 Uncollected Radiology Impressions Chest X-Ray 04/23/22 05:49 IMPRESSION: No acute findings. Laboratory Results WBC 5.3 10^3/uL (4.0-10.0) 04/23/22 05:50 RBC 4.26 10^6/uL (4.1-5.3) 04/23/22 05:50 Hgb 13.4 g/dL (11.5-15.3) 04/23/22 05:50 Hct 43.5 % (37.0-47.0) 04/23/22 05:50 MCV 102.1 fl (81-99) H 04/23/22 05:50 MCH 31.5 pg (28.0-34.0) 04/23/22 05:50 MCHC 30.8 g/dL (30.0-36.0) 04/23/22 05:50 RDW 14.9 % (12.1-15.1) 04/23/22 05:50 Plt Count 506 10^3/cmm (130-400) H 04/23/22 05:50 MPV 9.7 fL (7.4-10.4) 04/23/22 05:50 Neut % (Auto) 54.8 % 04/23/22 05:50 Lymph % (Auto) 18.3 % 04/23/22 05:50 Kimble % (Auto) 10.1 % 04/23/22 05:50 Eos % (Auto) 15.8 % 04/23/22 05:50 Baso % (Auto) 0.8 % 04/23/22 05:50 Neut # (Auto) 2.88 10^3/uL (1.8-7.7) 04/23/22 05:50 Lymph # (Auto) 1.0 10^3/uL (0.8-4.8) 04/23/22 05:50 [place] # (Auto) 0.5 10^3/uL (0.2-0.9) 04/23/22 05:50 Eos # (Auto) 0.8 10^3/uL (0.0-0.8) 04/23/22 05:50 Baso # (Auto) 0.0 10^3/uL (0.0-0.1) 04/23/22 05:50 Nucleated RBC % (auto) 0 % 04/23/22 05:50 Nucleated RBCs # 0.0 /100WBC 04/23/22 05:50 Specimen Type Arterial 04/23/22 08:15 Sample Site Radial, right 04/23/22 08:15 ABG pH 7.42 (7.35-7.45) 04/23/22 08:15 ABG pCO2 50.9 mmHg (35-45) H 04/23/22 08:15 ABG pO2 82.1 mmHg (80.0-100.0) 04/23/22 08:15 ABG HCO3 32.8 mmol/L (22-26) H 04/23/22 08:15 ABG Base Excess 7.0 mmol/L (-2.0-2.0) H 04/23/22 08:15 Stephen Test Pos 04/23/22 08:15 Hematocrit 37.0 % (37-47) 04/23/22 08:15 Hgb O2 Saturation 95.5 % (95-100) 04/23/22 08:15 Carboxyhemoglobin 1.0 %THgb (0.4-20.1) 04/23/22 08:15 Methemoglobin 0.4 % (0.4-1.5) 04/23/22 08:15 Total Hemoglobin 12.1 g/dL (12-16) 04/23/22 08:15 O2 Delivery Device Bipap 04/23/22 08:15 FiO2 30.0 % 04/23/22 08:15 Tank Truck Milk Receiver ID Cak 04/23/22 08:15 Sodium 139 mmol/L (136-145) 04/24/22 07:58 Potassium 3.6 mmol/L (3.5-5.1) 04/24/22 07:58 Chloride 100 mmol/L (98-107) 04/24/22 07:58 Carbon Dioxide 31 mmol/L (22-29) H 04/24/22 07:58 Anion Gap 11.6 (5-19) 04/24/22 07:58 BUN 13 mg/dL (8-23) 04/24/22 07:58 Creatinine 0.5 mg/dL (0.5-0.9) 04/24/22 07:58 GFR Calculation Not Reportable 04/24/22 07:58 Glucose 143 mg/dL (65-115) H 04/24/22 07:58 Calculated Osmolality 291 mOsm/kg (285-295) 04/24/22 07:58 Lactic Acid 1.5 mmol/L (0.5-2.2) 04/23/22 05:50 Calcium 9.0 mg/dL (8.5-10.5) 04/24/22 07:58 Magnesium 2.0 mg/dL (1.7-2.3) 04/24/22 07:58 Total Bilirubin 0.6 mg/dL (0.15-1.2) 04/23/22 05:50 AST 19 U/L (0-32) 04/23/22 05:50 ALT 8 U/L (0-33) 04/23/22 05:50 Alkaline Phosphatase 87 U/L (35-105) 04/23/22 05:50 NT-Pro-B Natriuret Pep 64 pg/mL (0-125) 04/23/22 05:50 Total Protein 6.8 g/dL (6.6-8.7) 04/23/22 05:50 Albumin 4.0 g/dL (3.5-5.2) 04/23/22 05:50 Globulin 2.8 g/dL (1.3-4.6) 04/23/22 05:50 Influenza Type A Ag negative (Negative) 04/23/22 13:09 Influenza Type B Ag negative (Negative) 04/23/22 13:09 SARS-CoV-2 Ag (Rapid) negative (Negative) 04/23/22 13:09 Vitals Last Vital Signs Temp 97.7 F 04/24/22 08:00 Pulse 96 04/24/22 09:08 Resp 21 H 04/24/22 08:00 BP 146/78 04/24/22 08:00 Pulse Ox 94 04/24/22 09:00 O2 Del Method 04/24/22 08:00 O2 Flow Rate 4 04/24/22 08:00 FiO2 30 04/24/22 09:00 Discharge Plan Discharge Patient Disposition: Hospice - Home Condition: Stable Prescriptions: New prednisone 20 mg tablet See Rx Instructions .ROUTE .COMPLEX Qty: 10 0RF Rx Instructions: 2 tab for 3 days, then 1 tab for 3 days, then 1/2 tab for 2 days. Continued budesonide-formoterol [Symbicort] 160-4.5 mcg/actuation HFA aerosol inhaler 2 puff INHALATION BID albuterol sulfate [Ventolin HFA] 90 mcg/actuation HFA aerosol inhaler 1 - 2 puff INHALATION Q4H PRN (Reason: Shortness Of Breath) clonazepam 1 mg tablet 1 mg PO QID PRN (Reason: Anxiety) hydrocodone-acetaminophen 10-325 mg Tablet 1 - 2 tab PO QID PRN (Reason: Pain) sennosides-docusate sodium [Stool Softener-Laxative] 8.6-50 mg tablet 1 tab PO DAILY Rx Instructions: for 14 days levothyroxine 125 mcg Tablet 125 mcg PO DAILY escitalopram oxalate 10 mg tablet 10 mg PO DAILY Daliresp 500 mcg tablet 500 mcg PO DAILY aspirin 81 mg Tablet,Delayed Release (Dr/Ec) 81 mg PO BEDTIME ascorbic acid (vitamin C) [Vitamin C] 500 mg Tablet 500 mg PO DAILY doxepin 10 mg Capsule 10 - 20 mg PO BEDTIME PRN (Reason: sleep/itching) ipratropium-albuterol 0.5 mg-3 mg(2.5 mg base)/3 mL solution for nebulization 3 ml inhalation Q6H PRN (Reason: shortness of breath or wheezing) Qty: 180 0RF Rx Instructions: until breathing returns to target peak flow/parameters Discharge Orders: Discharge Order (Routine); Ordered 04/24/22 Ordered By: Vaibhav Allen Referrals: Carson Murray DO [Primary Care Provider] - 4-7 days (Follow up with Hospice) Discharge Activity: Oxygen as instructed and Cpap/Bipap as instructed Patient Instructions: Prednisone (By mouth), Hospice Care (GEN) Discharge Attestations Time Spent in Discharge Care*: greater than 30 min Status at Discharge: Cognitive status at discharge: mildly impaired cognition , Behavioral status at discharge: can be uncooperative , Quality Metrics Clinical Quality Measures [ No reported AMI, CVA or VTE this stay] Coding Level of Care Code 62283 Total time (in minutes) for Discharge: 35 Exam Comprehensive Medical Decision Making Moderate Complexity Diagnoses COPD (chronic obstructive pulmonary disease) J44.9 Chronic respiratory failure with hypoxia J96.11 Goals of care, counseling/discussion Z71.89
[2022-04-24] MEDS: enoxaparin 40 mg/0.4 mL Syringe SUBCUT (12:00)
== END 2022-04-24 15:08 | disposition hospice, home (50) | DRG 191 ==
LOC: ER 08:57 → MEDSURG 12:31
PROVIDERS: Emergency Medicine; Admitting Provider Internal Medicine; Emergency Provider Family Medicine; PCP Family Medicine; Visit Provider Internal Medicine
DX: J44.1 Chronic obstructive pulmonary disease with (acute) exacerbation (principal); J96.11 Chronic respiratory failure with hypoxia; Z91.199 Patient's noncompliance with other medical treatment and regimen due to unspecified reason; Z79.51 Long term (current) use of inhaled steroids; Z79.891 Long term (current) use of opiate analgesic; Z79.82 Long term (current) use of aspirin; Z87.891 Personal history of nicotine dependence
CPT/HCPCS: 36415; 36600; 71045; 80048; 80053; 82805; 83605; 83735; 83880; 85025; 87040; 87426; 87804; 93005; 94640; 94660; 94664; 96372; 96374; 99285; C9113; J1650; J2920; J2930; J7030; J7626

== ENCOUNTER 2022-04-28 08:28 | Emergency (ER) | payer MEDICARE, SELFPAY ==
[2022-04-28 08:33] VITALS: BP 153/83; PULSE 97; RESP 18; TEMP 36.4; O2SAT 96
--- NOTE | 2022-04-28 08:37 | XRR_ITS ---
PROCEDURE INFORMATION: Exam: XR Chest Exam date and time: 04/28/2022 9:02 AM Age: 71 years old Clinical indication: Cough and dyspnea; Additional info: Dyspnea/cough TECHNIQUE: Imaging protocol: Radiologic exam of the chest. Views: 1 view. COMPARISON: CR (CHEST, ) 04/23/2022 6:11 AM FINDINGS: Lungs: No focal airspace disease. Pleural spaces: Unremarkable. No pleural effusion. No pneumothorax. Heart/Mediastinum: Cardiomediastinal silhouette is within normal limits. Bones/joints: Unremarkable. XR/XR chest 1V portable [id number] IMPRESSION: No acute cardiopulmonary abnormality.
--- NOTE | 2022-04-28 08:39 | W.ED.NAVMDI ---
HPI - Nausea/Vomiting/Diarrhea General: Chief complaint: Nausea/Vomiting/Diarrhea Stated complaint: SEVERE DEHYDRAION/ DIARRHEA Time Seen by Provider: 04/28/22 08:30 Source: patient Mode of arrival: ambulatory History of Present Illness: 71-year-old female was recently admitted for exacerbation COPD she was held overnight on BiPAP and improved was discharged home she returns today saying she having abdominal discomfort. Diarrhea she has had overnight some episodes of vomiting. Persisted through the night when she arrives here she is awake and alert she denies any fever sweats chills or dysuria no cough no shortness of breath at this time. She has not noticed any hematochezia melena or hematemesis. MD elicited complaint: nausea, vomiting and diarrhea Onset (ago): hour(s) Associated nausea: Yes Associated abdominal pain: Yes Location of pain: Diffuse Severity: mild Quality: cramping Exacerbating factors: none Relieving factors: none Associated symtoms: Reports cough, nausea and short of breath; Denies anxiety, bloating, change in vision, chest pain, diaphoresis, decreased urine output, dizziness, dysuria, epistaxis, fatigue, fecal incontinence, fevers/chills, headache(s), anorexia, malaise, myalgias, numbness, palpitations, rash, syncope, tenesmus, tinnitus or weakness Review of Systems Const: Denies: fever(s), chills, fatigue, malaise or diaphoresis Eyes: Denies: change in vision ENMT: Denies: tinnitus or epistaxis Card: Denies: chest pain, palpitations or syncope Resp: Denies: dyspnea, productive cough or non-productive cough GI: Reports: nausea; Denies: abdominal pain, bloating or fecal incontinence : Denies: dysuria, urinary frequency or urinary urgency Skin/Breast: Denies: rash or pruritus Neuro: Denies: headache(s) or dizziness Psych: Denies: anxiety PFSH ED PFSH: Medical History Chronic respiratory failure with hypoxia COPD (chronic obstructive pulmonary disease) Panic anxiety syndrome Surgical History History of appendectomy History of cholecystectomy History of hysterectomy Hx of tonsillectomy Social History Smoking and tobacco status: former smoker Quit status (tobacco): has quit using tobacco Year quit tobacco: 2015 - 1PPD x 40 Years Alcohol intake: never Lives independently: Yes Household members: none Current occupational status: disabled Pets and animals: Yes Pets & animals: dog(s) History of recent travel: No Current gender identity: Female Physical Exam Const: GENERAL APPEARANCE: cooperative and comfortable ORIENTATION/CONSCIOUSNESS: Yes awake, Yes oriented to person, Yes oriented to place and Yes oriented to time HENMT: COMMON NORMALS: normocephalic, atraumatic and hearing grossly normal bilaterally HEAD & SCALP: normocephalic and atraumatic Resp: COMMON NORMALS: normal respiratory effort, No retractions, No use of accessory muscles and clear to auscultation bilaterally AUSCULTATION: clear to auscultation bilaterally Cardio: COMMON NORMALS: regular rate, regular rhythm and No murmurs present (Cardio) RATE: regular rate RHYTHM: regular rhythm GI: COMMON NORMALS: Soft to palpation and No hepatosplenomegaly present AUSCULTATION: Yes normoactive bowel sounds PALPATION: Yes Soft to palpation, No Tenderness to palpation present (GI), No Guarding due to palpation present (GI) and Yes No hepatosplenomegaly present Extremity: COMMON NORMALS: normal to inspection, capillary refill normal, no clubbing, cyanosis or edema, no calf tenderness and no pedal edema Neuro: SENSORIUM/ORIENTATION: Yes oriented to person, Yes oriented to place and Yes oriented to time Skin: COMMON NORMALS: no rashes or lesions noted GENERAL SKIN EXAM: no rashes or lesions noted Course Vital Signs: Vital signs: Vital Signs Temperature 97.6 F 04/28/22 08:33 Pulse Rate 102 H 04/28/22 08:59 Respiratory Rate 18 04/28/22 08:33 Blood Pressure 153/83 04/28/22 08:33 Pulse Oximetry 95 04/28/22 08:59 Oxygen Delivery Me thod 04/28/22 08:59 Oxygen Flow Rate 2 04/28/22 08:59 MDM - Nausea/Vomiting/Diarrhea Medical Decision Making Labs imaging and EKGs reviewed. No acute changes on EKG. Mild hypokalemia secondary to her diarrhea. We will discharge patient on potassium supplement continues her inhaled medications follow-up with her primary care as planned. Medical Records I reviewed the patient's medical records. Lab Data I reviewed the patient's lab results. 04/28/22 09:30 04/28/22 09:30 Radiology Impressions Chest X-Ray 04/28/22 08:37 IMPRESSION: No acute cardiopulmonary abnormality. Laboratory Results WBC 7.1 10^3/uL (4.0-10.0) 04/28/22 09:30 RBC 4.88 10^6/uL (4.1-5.3) 04/28/22 09:30 Hgb 15.5 g/dL (11.5-15.3) H 04/28/22 09:30 Hct 47.5 % (37.0-47.0) H 04/28/22 09:30 MCV 97.3 fl (81-99) 04/28/22 09:30 MCH 31.8 pg (28.0-34.0) 04/28/22 09:30 MCHC 32.6 g/dL (30.0-36.0) 04/28/22 09:30 RDW 13.7 % (12.1-15.1) 04/28/22 09:30 Plt Count 454 10^3/cmm (130-400) H 04/28/22 09:30 MPV 10.4 fL (7.4-10.4) 04/28/22 09:30 Neut % (Auto) 76.4 % 04/28/22 09:30 Lymph % (Auto) 10.6 % 04/28/22 09:30 [place] % (Auto) 8.6 % 04/28/22 09:30 Eos % (Auto) 0.4 % 04/28/22 09:30 Baso % (Auto) 0.3 % 04/28/22 09:30 Neut # (Auto) 5.43 10^3/uL (1.8-7.7) 04/28/22 09:30 Lymph # (Auto) 0.8 10^3/uL (0.8-4.8) 04/28/22 09:30 [place] # (Auto) 0.6 10^3/uL (0.2-0.9) 04/28/22 09:30 Eos # (Auto) 0.0 10^3/uL (0.0-0.8) 04/28/22 09:30 Baso # (Auto) 0.0 10^3/uL (0.0-0.1) 04/28/22 09:30 Nucleated RBC % (auto) 0 % 04/28/22 09:30 Nucleated RBCs # 0.0 /100WBC 04/28/22 09:30 Specimen Type Arterial 04/28/22 09:10 Sample Site Radial, left 04/28/22 09:10 ABG pH 7.43 (7.35-7.45) 04/28/22 09:10 ABG pCO2 47.2 mmHg (35-45) H 04/28/22 09:10 ABG pO2 87.2 mmHg (80.0-100.0) 04/28/22 09:10 ABG HCO3 31.6 mmol/L (22-26) H 04/28/22 09:10 ABG O2 Saturation 96.6 04/28/22 09:10 ABG Base Excess 6.1 mmol/L (-2.0-2.0) H 04/28/22 09:10 Stephen Test Pos 04/28/22 09:10 A-a O2 Gradient 0.7 mmHg (5-10) L 04/28/22 09:10 Hematocrit 48.2 % (37-47) H 04/28/22 09:10 Hgb O2 Saturation 94.8 % (95-100) L 04/28/22 09:10 Carboxyhemoglobin 1.2 %THgb (0.4-20.1) 04/28/22 09:10 Methemoglobin 0.7 % (0.4-1.5) 04/28/22 09:10 Total Hemoglobin 15.7 g/dL (12-16) 04/28/22 09:10 Sodium 140.0 mmol/L (131-143) 04/28/22 09:10 Potassium 2.6 mmol/L (3.5-5.0) L 04/28/22 09:10 Glucose 111.0 mg/dL (70-115) 04/28/22 09:10 Ionized Calcium 1.1 mmol/L (1.1-1.4) 04/28/22 09:10 O2 Delivery Device Nc 04/28/22 09:10 O2 Liters/Min 2.0 % 04/28/22 09:10 Production Technologist ID Broma 02/10/23 09:10 Sodium 139 mmol/L (136-145) 04/28/22 09:30 Potassium 3.1 mmol/L (3.5-5.1) L 04/28/22 09:30 Chloride 96 mmol/L (98-107) L 04/28/22 09:30 Carbon Dioxide 34 mmol/L (22-29) H 04/28/22 09:30 Anion Gap 12.1 (5-19) 04/28/22:30 BUN 26 mg/dL (8-23) H 04/28/22 09:30 Creatinine 0.7 mg/dL (0.5-0.9) 04/28/22 09:30 GFR Calculation Not Reportable 04/28/22: Glucose 115 mg/dL (65-115) 04/28/22:30 Calculated Osmolality 294 mOsm/kg (285-295) 04/28/22:30 Lactic Acid 1.2 mmol/L (0.5-2.2) 04/28/22:30 Calcium 8.9 mg/dL (8.5-10.5) 04/28/22 09:30 Total Bilirubin 0.5 mg/dL (0.15-1.2) 04/28/22:30 AST 26 U/L (0-32) 04/28/22:30 ALT 14 U/L (0-33) 04/28/22 09:30 Alkaline Phosphatase 64 U/L (35-105) 04/28/22 09:30 Creatine Kinase 138 U/L (26-192) 04/28/22:30 Total Protein 5.5 g/dL (6.6-8.7) L 04/28/22 09:30 Albumin 3.2 g/dL (3.5-5.2) L 04/28/22 09:30 Globulin 2.3 g/dL (1.3-4.6) 04/28/22 09:30 Urine Color Yellow (Yellow) 04/28/22:40 Urine Appearance Clear (CLEAR) 04/28/22:40 Urine pH 6 (5-7) 04/28/22:40 Ur Specific [place] 1.015 (1.005-1.030) 04/28/22:40 Urine Protein Neg (Negative) 02/10/23 09:40 Urine Glucose (UA) Norm (Normal) 04/28/22 09:40 Urine Ketones 3+ (Negative) H 04/28/22 09:40 Urine Blood Neg (Negative) 04/28/22 09:40 Urine Nitrate Negative (Negative) 04/28/22 09:40 Urine Bilirubin 1+ (Negative) H 04/28/22 09:40 Urine Urobilinogen Neg mg/dL (Negative) 04/28/22 09:40 Ur Leukocyte Esterase Negative (Negative) 04/28/22 09:40 Discharge Plan Discharge Patient Disposition: Home Clinical Impression: Diarrhea, COPD (chronic obstructive pulmonary disease), Hypokalemia Condition: Stable Prescriptions: New potassium chloride 20 mEq tablet extended release 20 meq PO DAILY Qty: 5 0RF No Action albuterol sulfate [Ventolin HFA] 90 mcg/actuation HFA aerosol inhaler 1 - 2 puff INHALATION Q4H PRN (Reason: Shortness Of Breath) clonazepam 1 mg tablet 1 mg PO QID PRN (Reason: Anxiety) hydrocodone-acetaminophen 10-325 mg Tablet 1 - 2 tab PO QID PRN (Reason: Pain) levothyroxine 125 mcg Tablet 125 mcg PO QAM prednisone 20 mg tablet See Rx Instructions .ROUTE .COMPLEX Qty: 10 0RF Rx Instructions: 2 tab for 3 days, then 1 tab for 3 days, then 1/2 tab for 2 days. aspirin 81 mg Tablet,Delayed Release (Dr/Ec) 81 mg PO BEDTIME ascorbic acid (vitamin C) [Vitamin C] 500 mg Tablet 500 mg PO DAILY ipratropium-albuterol 0.5 mg-3 mg(2.5 mg base)/3 mL solution for nebulization 3 ml inhalation Q6H PRN (Reason: shortness of breath or wheezing) Qty: 180 0RF Rx Instructions: until breathing returns to target peak flow/parameters Discharge Orders: Discharge ED (Routine); Ordered 04/28/22 Ordered By: Alex Romero Referrals: Carson Murray DO [Primary Care Provider] - Discharge Diet: Full LIquid Discharge Activity: Increase activity as tolerated Patient Instructions: Opioid Safety, Pain Management Activity Restrictions/Additional Instructions: You were seen today for diarrhea. You are mildly fluid depleted and slightly hypokalemic. You are given IV fluids and oral potassium supplementation continue oral potassium supplementation 1 pill daily for the next 5 days. Continue all the other previous medications and follow-up with your primary care doctor as previously scheduled. Coding Level of Care Code ED Cellophane Worker for Ji Melgar
--- NOTE | 2022-04-28 08:48 | ECG_ITS ---
[facility] Test Date: 2022-04-28 Pat Name: Socorro Montes De Oca Department: Room: Gender: Female Senior Water Resources Engineer: : 1950 Requested By: Alex Scales Order Number: [id number] Octavio MD: Murray Abreu M.D. Measurements Intervals [place] Rate: 117 P: 89 ID: [id number] QRS: 36 QRSD: 78 T: 81 QT: 323 QTc: 451 Interpretive Statements SINUS TACHYCARDIA WITH OCCASIONAL SUPRAVENTRICULAR PREMATURE COMPLEXES POSSIBLE RIGHT ATRIAL ENLARGEMENT [0.25mV P-WAVE] POSSIBLE RIGHT VENTRICULAR CONDUCTION DELAY [RSR (QR) IN V1/V2] MODERATE ST DEPRESSION [0.05+ mV ST DEPRESSION] Compared to ECG 04/23/2022 05:46:59 ST (T wave) deviation now present Electronically Signed On 04-28-2022 16:19:30 LIEUTENANT SHIFT SUPERVISOR by Murray Abreu M.D. [id number]
[2022-04-28] MEDS: sodium chloride 0.9% 500 ML IV (08:56)
[2022-04-28 08:59] VITALS: PULSE 102; O2SAT 95
[2022-04-28 09:20] LABS: ABG PCO2 47.2 mmHg (35-45); ABG PH Result 7.43 (7.35-7.45); Alveolar-Arterial Oxygen Gradi 0.7 mmHg (5-10); Arterial Blood Gas Hematocrit 48.2 % (37-47); Base Excess ABG 6.1 mmol/L (-2.0-2.0); Blood Gas Allen Test Pos; Blood Gas Operator Identificat BROMA; Blood Gas Sample Site Radial, left; Blood Gas Sample Type Arterial; Carboxyhemoglobin 1.2 %THgb (0.4-20.1); HCO3 ABG 31.6 mmol/L (22-26); HGB O2 Sat 94.8 % (95-100); Ionized Calcium Level - ABG 1.1 mmol/L (1.1-1.4); Methemoglobin 0.7 % (0.4-1.5); Oxygen Device NC; Oxygen Saturation ABG 96.6; PO2 ABG 87.2 mmHg (80.0-100.0); Potassium Level - ABG 2.6 mmol/L (3.5-5.0); Total Hemoglobin 15.7 g/dL (12-16)
--- NOTE | 2022-04-28 09:27 | PC.PHAR ---
pt states she takes care of her own medications-pt states she is not taking daliresp 500mcg daily filled 03/10/22 30d/s no refills,doexpin 10-20mg hs prn filled 01/26/22 15d/s, lexapro 10mg daily filled 03/10/22 30d/s no refills symbicort 160/4.5 2p bid filled 02/02/22 30d/s or spiriva respimat 2 p daily filled 03/10/22-pt states she is only taking the medications entered-pt states she only took a few of her prednisone 20mg tabs states not taken for 2-3 days-notes are made in the pharmacy comments
[2022-04-28 09:41] LABS: Basophils % 0.3 %; Eosinophils % 0.4 %; Hematocrit 47.5 % (37.0-47.0); Hemoglobin 15.5 g/dL (11.5-15.3); Lymphocytes # 0.8 10^3/uL (0.8-4.8); Lymphocytes % 10.6 %; Mean Corpuscular HGB Conc 32.6 g/dL (30.0-36.0); Mean Corpuscular Hemoglobin 31.8 pg (28.0-34.0); Mean Corpuscular Volume 97.3 fl (81-99); Mean Platelet Volume 10.4 fL (7.4-10.4); Monocytes # 0.6 10^3/uL (0.2-0.9); Monocytes % 8.6 %; Neutrophils # 5.43 10^3/uL (1.8-7.7); Neutrophils % 76.4 %; Nucleated Red Blood Cells % 0 %; Platelet Count 454 10^3/cmm (130-400); Red Blood Count 4.88 10^6/uL (4.1-5.3); Red Cell Distribution Width 13.7 % (12.1-15.1); White Blood Count 7.1 10^3/uL (4.0-10.0)
[2022-04-28 09:45] LABS: Add Urine Microscopic? NO; Charge for UA Resulting for Rev
[2022-04-28 09:51] LABS: Specific Gravity, Urine 1.015 (1.005-1.030); Urine Appearance Clear (CLEAR); Urine Color Yellow (Yellow); pH Urine 6 (5-7)
[2022-04-28 09:52] LABS: Bilirubin Urine 1+ (Negative); Blood Urine Neg (Negative); Glucose Urine UA Norm (Normal); Ketones Urine 3+ (Negative); Leukocyte Esterase Urine Negative (Negative); Nitrate Urine Negative (Negative); Protein Urine Neg (Negative); Urobilinogen Urine Neg (Negative)
[2022-04-28 10:00] LABS: Alanine Aminotransferase 14 U/L (0-33); Albumin Level 3.2 g/dL (3.5-5.2); Alkaline Phosphatase 64 U/L (35-105); Anion Gap 12.1 (5-19); Aspartate Amino Transferase 26 U/L (0-32); Blood Urea Nitrogen 26 mg/dL (8-23); Calcium 8.9 mg/dL (8.5-10.5); Carbon Dioxide 34 mmol/L (22-29); Chloride 96 mmol/L (98-107); Creatine Phosphokinase 138 U/L (26-192); Creatinine Clr Calc Pharmacy 57.9937; Globulin 2.3 g/dL (1.3-4.6); Glucose 115 mg/dL (65-115); Lactic Sepsis W/Reflex 1.2 mmol/L (0.5-2.2); Osmolality Calculated 294 mOsm/kg (285-295); Potassium 3.1 mmol/L (3.5-5.1); Sodium 139 mmol/L (136-145); Total Bilirubin 0.5 mg/dL (0.15-1.2); Total Protein 5.5 g/dL (6.6-8.7)
[2022-04-28] MEDS: potassium chloride oral liq 20 mEq/15 mL UDC 40 MEQ PO (11:09)
== END 2022-04-28 13:17 | disposition home or self-care (01) ==
PROVIDERS: Emergency Provider Family Medicine; PCP Family Medicine
DX: J44.9 Chronic obstructive pulmonary disease, unspecified (principal); E87.6 Hypokalemia; R19.7 Diarrhea, unspecified; Z79.82 Long term (current) use of aspirin; Z87.891 Personal history of nicotine dependence
CPT/HCPCS: 36415; 36600; 71045; 80051; 80053; 81003; 82330; 82550; 82805; 83605; 85025; 93005; 96360; 96361; 99285; J7040

== ENCOUNTER 2022-06-14 02:55 | Inpatient (IN) | payer MEDICARE, SELFPAY ==
[2022-06-14] VITALS (20 sets, daily range): BP systolic 122–169; BP diastolic 66–85; PULSE 68–101; RESP 16–27; TEMP 36.5–37; O2SAT 93–100; BMI 20.3
--- NOTE | 2022-06-14 02:56 | XRR_ITS ---
PROCEDURE INFORMATION: Exam: XR Chest Exam date and time: 06/14/2022 2:59 AM Age: 72 years old Clinical indication: Dyspnea and shortness of breath; Patient HX: Arrival via EMS for resp distress. ; Additional info: SOB TECHNIQUE: Imaging protocol: Radiologic exam of the chest. Views: 1 view. COMPARISON: CR XR chest 1V portable [id number] 04/28/2022 9:02 AM FINDINGS: Lungs: Normal lung volumes. No interstitial or airspace opacities. Pleural spaces: No pleural effusion. No pneumothorax. Heart/Mediastinum: Normal heart size. Normal mediastinal contour. Midline trachea. Bones/joints: No acute abnormalities. Small degenerative osteophytes are seen throughout the thoracic spine. Soft tissues: Multiple external densities are seen overlying the chest, limiting assessment. XR/XR chest 1V portable [id number] IMPRESSION: No chest radiographic evidence of acute cardiopulmonary disease.
--- NOTE | 2022-06-14 02:56 | ECG_ITS ---
[facility] Test Date: 2022-06-14 Pat Name: Socorro Montes De Oca Department: Room: Gender: Female Visual Educator: : 1950 Requested By: Harshad Gardner Order Number: [id number] Octavio MD: Giorgi Justin M.D. Measurements Intervals [place] Rate: 94 P: 100 AK: 144 QRS: 65 QRSD: 80 T: 59 QT: 368 QTc: 461 Interpretive Statements SINUS RHYTHM POSSIBLE RIGHT VENTRICULAR CONDUCTION DELAY [RSR (QR) IN V1/V2] MODERATE ST DEPRESSION [0.05+ mV ST DEPRESSION] Compared to ECG 04/28/2022 08:48:22 Sinus tachycardia no longer present ST (T wave) deviation still present Heavy artifact. Need to repeat the study Electronically Signed On 06-14-2022 23:48:47 CDT by Giorgi Justin M.D. [id number]
--- NOTE | 2022-06-14 02:59 | W.ED.SOB ---
HPI - SOB/Dyspnea General: Chief Complaint: Shortness of Breath/Dyspnea Stated Complaint: resp distress, wheezing Time Seen by Provider: 06/14/22 02:55 Source: patient and EMS Mode of arrival: EMS Limitations: no limitations History of Present Illness: HPI Narrative: 72-year-old female is very well-known to the history has a long history of COPD she is on 6 L at baseline states she is having some increasing shortness of breath tonight per EMS and they arrived and had a hard time getting her pulse ox due to her fingers being cold here to 100% on her 6 L that given her breathing treatment Solu-Medrol in route she is able speak in full senses here she denies any cough denies any fevers denies any chest pain. Associated symptoms: Deny abdominal pain, chest pain, fever(s), nausea or vomiting Review of Systems Const: Denies: fever(s), chills, body aches or change in appetite Eyes: Denies: blurry vision or eye discomfort ENMT: Denies: throat pain or dental pain Card: Denies: chest pain Resp: Reports: dyspnea GI: Denies: abdominal pain, nausea, vomiting or diarrhea : Denies: dysuria Musc: Denies: neck pain or back pain Skin/Breast: Denies: rash Neuro: Denies: headache(s) Psych: Denies: depression Arnav/Lymph: Denies: easy bruising All/Imm: Denies: urticaria PFSH ED PFSH: Medical History Chronic respiratory failure with hypoxia COPD (chronic obstructive pulmonary disease) Panic anxiety syndrome Surgical History History of appendectomy History of cholecystectomy History of hysterectomy Hx of tonsillectomy Social History Smoking and tobacco status: former smoker Quit status (tobacco): has quit using tobacco Year quit tobacco: 2014 - 1PPD x 40 Years Alcohol intake: never Lives independently: Yes Household members: none Current occupational status: disabled Pets and animals: Yes Pets & animals: dog(s) Current gender identity: Female Physical Exam Const: COMMON NORMALS: patient oriented x3 and healthy appearing HENMT: COMMON NORMALS: normocephalic and atraumatic HEAD & SCALP: normocephalic and atraumatic Eye: COMMON NORMALS: Equal, round and reactive pupils present and EOMs intact bilaterally PUPIL: Yes Equal, round and reactive pupils present Neck/C-Spine: COMMON NORMALS: full ROM and supple Chest: COMMONS NORMALS: normal inspection of the chest and normal palpation of entire chest wall Resp: COMMON NORMALS: normal respiratory effort, No retractions, No use of accessory muscles and clear to auscultation bilaterally AUSCULTATION: clear to auscultation bilaterally Cardio: COMMON NORMALS: regular rate, regular rhythm and No murmurs present (Cardio) RATE: regular rate RHYTHM: regular rhythm GI: COMMON NORMALS: Normal to inspection, nondistended, normoactive bowel sounds present, Soft to palpation, non-tender and no masses PALPATION: Yes Soft to palpation Extremity: COMMON NORMALS: normal to inspection and full ROM Neuro: COMMON NORMALS: patient oriented x3, moves all extremities and no focal motor deficits Psych: COMMON NORMALS: mental status grossly normal, Normal thought process present and cooperative THOUGHT PROCESS: Normal thought process present Skin: COMMON NORMALS: no rashes or lesions noted and no wounds GENERAL SKIN EXAM: no rashes or lesions noted Course Vital Signs: Vital signs: Vital Signs Temperature 98.6 F 06/14/22 02:58 Pulse Rate 68 06/14/22 04:45 Respiratory Rate 24 H 06/14/22 04:45 Blood Pressure 133/68 06/14/22 04:45 Pulse Oximetry 94 06/14/22 04:45 Oxygen Delivery Me thod 06/14/22 04:45 Oxygen Flow Rate 6 06/14/22 02:58 Fraction of Inspir ed Oxygen 35 06/14/22 03:55 MDM - SOB/Dyspnea Medical Decision Making Patient presents here with shortness of breath she is hypercapnic she has improved on BiPAP will admit at this time no signs of pneumonia. Lab Data 06/14/22 03:12 06/14/22 03:12 Labs/Radiology: Radiology Impressions Chest X-Ray 06/14/22 02:56 IMPRESSION: No chest radiographic evidence of acute cardiopulmonary disease. Laboratory Results WBC 8.8 10^3/uL (4.0-10.0) 06/14/22 03:12 RBC 3.99 10^6/uL (4.1-5.3) L 06/14/22 03:12 Hgb 12.6 g/dL (11.5-15.3) 06/14/22 03:12 Hct 41.6 % (37.0-47.0) 06/14/22 03:12 MCV 104.3 fl (81-99) H 06/14/22 03:12 MCH 31.6 pg (28.0-34.0) 06/14/22 03:12 MCHC 30.3 g/dL (30.0-36.0) 06/14/22 03:12 RDW 14.1 % (12.1-15.1) 06/14/22 03:12 Plt Count 157 10^3/cmm (130-400) 06/14/22 03:12 MPV 11.7 fL (7.4-10.4) H 06/14/22 03:12 Neut % (Auto) 81.5 % 06/14/22 03:12 Lymph % (Auto) 11.9 % 06/14/22 03:12 [place] % (Auto) 4.7 % 06/14/22 03:12 Eos % (Auto) 1.0 % 06/14/22 03:12 Baso % (Auto) 0.6 % 06/14/22 03:12 Neut # (Auto) 7.15 10^3/uL (1.8-7.7) 06/14/22 03:12 Lymph # (Auto) 1.0 10^3/uL (0.8-4.8) 06/14/22 03:12 [place] # (Auto) 0.4 10^3/uL (0.2-0.9) 06/14/22 03:12 Eos # (Auto) 0.1 10^3/uL (0.0-0.8) 06/14/22 03:12 Baso # (Auto) 0.1 10^3/uL (0.0-0.1) 06/14/22 03:12 Nucleated RBC % (auto) 0 % 06/14/22 03:12 Nucleated RBCs # 0.0 /100WBC 06/14/22 03:12 Specimen Type Arterial 06/14/22 04:30 Sample Site Radial, right 06/14/22 04:30 ABG pH 7.37 (7.35-7.45) 06/14/22 04:30 ABG pCO2 60.6 mmHg (35-45) H* 06/14/22 04:30 ABG pO2 106.0 mmHg (80.0-100.0) H 06/14/22 04:30 ABG HCO3 34.9 mmol/L (22-26) H 06/14/22 04:30 ABG Base Excess 7.7 mmol/L (-2.0-2.0) H 06/14/22 04:30 Stephen Test Pos 06/14/22 04:30 Hematocrit 37.9 % (37-47) 06/14/22 04:30 Hgb O2 Saturation 97.1 % (95-100) 06/14/22 03:10 Carboxyhemoglobin 1.0 %THgb (0.4-20.1) 06/14/22 03:10 Methemoglobin 1.0 % (0.4-1.5) 06/14/22 03:10 Total Hemoglobin 12.5 g/dL (12-16) 06/14/22 03:10 O2 Delivery Device Bipap 06/14/22 04:30 O2 Liters/Min 6.0 % 06/14/22 03:10 FiO2 35.0 % 06/14/22 04:30 PEEP 8.0 cmH20 06/14/22 04:30 Crusher Loader Equipment Operator ID Thao 06/14/22 04:30 Sodium 140 mmol/L (136-145) 06/14/22 03:12 Potassium 4.2 mmol/L (3.5-5.1) 06/14/22 03:12 Chloride 98 mmol/L (98-107) 06/14/22 03:12 Carbon Dioxide 35 mmol/L (22-29) H 06/14/22 03:12 Anion Gap 11.2 (5-19) 06/14/22 03:12 BUN 13 mg/dL (8-23) 06/14/22 03:12 Creatinine 0.5 mg/dL (0.5-0.9) 06/14/22 03:12 GFR Calculation Not Reportable 06/14/22 03:12 Glucose 113 mg/dL (65-115) 06/14/22 03:12 Calculated Osmolality 291 mOsm/kg (285-295) 06/14/22 03:12 Calcium 9.4 mg/dL (8.5-10.5) 06/14/22 03:12 Total Bilirubin 0.6 mg/dL (0.15-1.2) 06/14/22 03:12 AST 18 U/L (0-32) 06/14/22 03:12 ALT 8 U/L (0-33) 06/14/22 03:12 Alkaline Phosphatase 64 U/L (35-105) 06/14/22 03:12 NT-Pro-B Natriuret Pep 307 pg/mL (0-125) H 06/14/22 03:12 Total Protein 6.5 g/dL (6.6-8.7) L 06/14/22 03:12 Albumin 4.1 g/dL (3.5-5.2) 06/14/22 03:12 Globulin 2.4 g/dL (1.3-4.6) 06/14/22 03:12 Influenza Type A Ag negative (Negative) 06/14/22 03:20 Influenza Type B Ag negative (Negative) 06/14/22 03:20 SARS-CoV-2 Ag (Rapid) Negative (Negative) 06/14/22 03:20 Discharge Plan Discharge Patient Disposition: Admitted As Inpatient Clinical Impression: Acute on chronic respiratory failure with hypoxia and hypercapnia, Acute exacerbation of chronic obstructive airways disease Condition: Stable Coding Level of Care Code ED Tanning Wheel Operator for Ji Melgar
[2022-06-14 03:16] LABS: ABG PH Result 7.35 (7.35-7.45); Arterial Blood Gas Hematocrit 38.4 % (37-47); Base Excess ABG 7.4 mmol/L (-2.0-2.0); Blood Gas Allen Test Pos; Blood Gas Sample Site Radial, right; Blood Gas Sample Type Arterial; HGB O2 Sat 97.1 % (95-100); Oxygen Device NC; Total Hemoglobin 12.5 g/dL (12-16)
[2022-06-14 03:18] LABS: ABG PCO2 63.3 mmHg (35-45)
[2022-06-14 03:19] LABS: Basophils # 0.1 10^3/uL (0.0-0.1); Basophils % 0.6 %; Eosinophils # 0.1 10^3/uL (0.0-0.8); Hematocrit 41.6 % (37.0-47.0); Hemoglobin 12.6 g/dL (11.5-15.3); Lymphocytes % 11.9 %; Mean Corpuscular HGB Conc 30.3 g/dL (30.0-36.0); Mean Corpuscular Hemoglobin 31.6 pg (28.0-34.0); Mean Corpuscular Volume 104.3 fl (81-99); Mean Platelet Volume 11.7 fL (7.4-10.4); Monocytes # 0.4 10^3/uL (0.2-0.9); Monocytes % 4.7 %; Neutrophils # 7.15 10^3/uL (1.8-7.7); Neutrophils % 81.5 %; Nucleated Red Blood Cells % 0 %; Platelet Count 157 10^3/cmm (130-400); Red Blood Count 3.99 10^6/uL (4.1-5.3); Red Cell Distribution Width 14.1 % (12.1-15.1); White Blood Count 8.8 10^3/uL (4.0-10.0)
[2022-06-14 03:39] LABS: Influenza A by IFA negative (Negative); Influenza B by IFA negative (Negative)
[2022-06-14 03:51] LABS: Alanine Aminotransferase 8 U/L (0-33); Albumin Level 4.1 g/dL (3.5-5.2); Alkaline Phosphatase 64 U/L (35-105); Anion Gap 11.2 (5-19); Aspartate Amino Transferase 18 U/L (0-32); Blood Urea Nitrogen 13 mg/dL (8-23); Calcium 9.4 mg/dL (8.5-10.5); Carbon Dioxide 35 mmol/L (22-29); Chloride 98 mmol/L (98-107); Globulin 2.4 g/dL (1.3-4.6); Glucose 113 mg/dL (65-115); NT Pro B Type Natriuretic Pept 307 pg/mL (0-125); Osmolality Calculated 291 mOsm/kg (285-295); Potassium 4.2 mmol/L (3.5-5.1); Sodium 140 mmol/L (136-145); Total Bilirubin 0.6 mg/dL (0.15-1.2); Total Protein 6.5 g/dL (6.6-8.7)
[2022-06-14 03:53] LABS: Slide Review Slide Review Perform
[2022-06-14] MEDS: albuterol 2.5 mg/3 mL Neb INHALATION (03:55)
[2022-06-14 04:12] LABS: SARS Covid-2 Antigen Negative (Negative)
[2022-06-14 04:37] LABS: ABG PH Result 7.37 (7.35-7.45); Arterial Blood Gas Hematocrit 37.9 % (37-47); Base Excess ABG 7.7 mmol/L (-2.0-2.0); Blood Gas Allen Test Pos; Blood Gas Sample Site Radial, right; Blood Gas Sample Type Arterial; HCO3 ABG 34.9 mmol/L (22-26); Oxygen Device BIPAP
[2022-06-14 04:38] LABS: ABG PCO2 60.6 mmHg (35-45)
--- NOTE | 2022-06-14 06:35 | P.HP_ITS ---
Providers/Chief Complaint Admitting Physician: Roopa Hearn MD Primary Care Provider: Carson Murray DO Chief Complaint: resp distress, wheezing History of Present Illness Socorro Montes De Oca is a 72 year old female with past medical history of COPD, anxiety, panic disorder, oxygen dependency on 6 L at baseline presented to the hospital today with increasing shortness of breath. She was brought in via EMS. It was difficult to obtain her pulse ox due to her fingers being cold. She was given Solu-Medrol in route and a breathing treatment. At this time not having any acute respiratory distress. Denies fever, chest pain, nausea, vomiting, diarrhea, abdominal pain. Patient on hospice at home. She is a full code. Medications/Allergies Home Medications Medication Instructions Recorded Confirmed Last Taken Type albuterol sulfate 90 mcg/actuation 1 - 2 puff inhalation Q4H PRN 08/21/19 06/14/22 Unknown History aerosol inhaler (Ventolin HFA) Shortness Of Breath hydrocodone 10 mg-acetaminophen 1 - 2 tab PO QID PRN Pain 02/07/22 06/14/22 Unknown History 325 mg tablet ascorbic acid (vitamin C) 500 mg 500 mg PO DAILY 03/08/22 06/14/22 Unknown History tablet (Vitamin C) aspirin 81 mg tablet,delayed 81 mg PO BEDTIME 03/08/22 06/14/22 Unknown History release ipratropium 0.5 mg-albuterol 3 mg 3 ml inhalation Q6H PRN shortness 03/10/22 06/14/22 Unknown Rx (2.5 mg base)/3 mL nebulization of breath or wheezing #180 mL soln levothyroxine 125 mcg tablet 125 mcg PO QAM 04/23/22 06/14/22 Unknown History clonazepam 0.5 mg tablet 1 mg PO QID 06/14/22 06/14/22 Unknown History Allergies Allergy/AdvReac Type Severity Reaction Status Date / Time olanzapine [From Zyprexa] Allergy Severe edema Verified 06/14/22 04:20 PFSH Acute PFSH: Medical History Chronic respiratory failure with hypoxia COPD (chronic obstructive pulmonary disease) Panic anxiety syndrome Surgical History History of appendectomy History of cholecystectomy History of hysterectomy Hx of tonsillectomy Social History Smoking and tobacco status: former smoker Quit status (tobacco): has quit using tobacco Year quit tobacco: 2015 - 1PPD x 40 Years Alcohol intake: never Lives independently: Yes Household members: none Current occupational status: disabled Pets and animals: Yes Pets & animals: dog(s) Current gender identity: Female Vitals/I&O/Wt Last Vital Signs Temp 98.6 F 06/14/22 02:58 Pulse 72 06/14/22 05:54 Resp 24 H 06/14/22 05:54 BP 134/73 06/14/22 05:45 Pulse Ox 95 06/14/22 05:54 O2 Del Method 06/14/22 05:45 O2 Flow Rate 6 06/14/22 02:58 FiO2 35 06/14/22 03:55 Weight last 48 hrs Weight 52.163 kg Physical Exam Const: COMMON NORMALS: patient oriented x3 ORIENTATION/CONSCIOUSNESS: Yes awake HENMT: COMMON NORMALS: oropharynx normal Neck/C-Spine: COMMON NORMALS: no JVD Resp: AUSCULTATION: no wheezes and diminished lung sounds (less) Cardio: COMMON NORMALS: no JVD, regular rhythm, S1 normal heart sound present, S2 normal heart sound present and No murmurs present (Cardio) RHYTHM: regular rhythm HEART SOUNDS: S1 normal heart sound present and S2 normal heart sound present GI: COMMON NORMALS: Normal to inspection, nondistended, normoactive bowel sounds present, Soft to palpation and non-tender PALPATION: Yes Soft to palpation Extremity: COMMON NORMALS: no joint enlargement and no pedal edema Neuro: COMMON NORMALS: patient oriented x3 and moves all extremities SENSORIUM/ORIENTATION: Yes alert Data 06/14/22 03:12 06/14/22 03:12 A&P Assessment and plan (1) Chronic respiratory failure with hypoxia: (2) COPD (chronic obstructive pulmonary disease): (3) Acute exacerbation of chronic obstructive airways disease: (4) Anxiety disorder: Plan #COPD exacerbation #On hospice #End-stage COPD #Anxiety bipolar disorder - CXR does not show pneumonia. ? Solu-Medrol 60 IV twice daily ? DuoNeb every 4 hours scheduled ? Pulmicort twice daily ? Continue Daliresp ? Continue aspirin and all other home medications. - Continue on bipap. Patient has a machine at home, she is noncompliant. ABG 7.35/60 compensated - Admit for observation. Full Code SCDS Attestations Medical Necessity Statement*: Observation for COPD exacerbation Coding Level of Care Code 86651 Moderate MDM includes number and complexity of problems actively addressed during encounter, amount and/or complexity of data reviewed/ordered and described risk of complication, morbidity or mortality of management as document ed Diagnoses Chronic respiratory failure with hypoxia J96.11 COPD (chronic obstructive pulmonary disease) J44.9 Acute exacerbation of chronic obstructive airways disease J44.1 Anxiety disorder F41.9
[2022-06-14 07:21] LABS: Procalcitonin 0.04 ng/mL (0-0.5)
[2022-06-14] MEDS: heparin 5,000 unit/mL INJ 1 mL 5000 UNIT SUBCUT ×2 (07:57→17:59)
[2022-06-14] MEDS: ascorbic acid 500 mg Tablet PO (08:01)
[2022-06-14] MEDS: ipratropium-albuterol 3 mL Neb INHALATION ×4 (08:15→21:52)
[2022-06-14] MEDS: budesonide 0.5 mg/2 mL Neb INHALATION ×2 (08:16→21:52)
--- NOTE | 2022-06-14 10:00 | PC.PHAR ---
pt unable to verify medications-medications entered are what ext med history shows has been filled recently and what was on previous entered med list
--- NOTE | 2022-06-14 16:28 | P.PN_ITS ---
Subjective Subjective: Patient was seen this morning, currently on BiPAP, she opens her eyes to sternal rub, but swats me away, she falls back asleep, does not follow commands, currently on BiPAP therapy Vitals/I&O/Wt Last Vital Signs Temp 97.7 F 06/14/22 12:00 Pulse 78 06/14/22 16:00 Resp 22 H 06/14/22 16:00 BP 122/80 06/14/22 12:00 Pulse Ox 96 06/14/22 16:00 O2 Del Method 06/14/22 16:00 O2 Flow Rate 30 06/14/22 16:00 FiO2 35 06/14/22 16:00 06/14/22 06/14/22 06/14/22 06:59 14:59 22:59 Intake Total 0 / 0 120 / 120 Balance 0 / 0 120 / 120 Weight last 48 hrs Weight 52.163 kg Physical Exam Const: COMMON NORMALS: no acute distress EXAM LIMITATIONS: altered mental status Resp: COMMON NORMALS: normal respiratory effort, No retractions, No use of accessory muscles and clear to auscultation bilaterally AUSCULTATION: clear to auscultation bilaterally Cardio: COMMON NORMALS: regular rate, regular rhythm, S1 normal heart sound present and S2 normal heart sound present RATE: regular rate RHYTHM: regular rhythm HEART SOUNDS: S1 normal heart sound present and S2 normal heart sound present GI: COMMON NORMALS: Normal to inspection, nondistended, normoactive bowel sounds present, Soft to palpation and non-tender PALPATION: Yes Soft to palpation Extremity: COMMON NORMALS: no pedal edema Data 06/14/22 03:12 06/14/22 03:12 A&P Assessment and plan (1) Acute encephalopathy: (2) Chronic respiratory failure with hypoxia: (3) COPD (chronic obstructive pulmonary disease): (4) Acute exacerbation of chronic obstructive airways disease: (5) Panic attacks: (6) Bipolar 1 disorder: (7) Asthma-COPD overlap syndrome: Plan #Acute encephalopathy, likely secondary to hypercarbia #COPD exacerbation #On hospice #End-stage COPD #Anxiety bipolar disorder - CXR does not show radiographic evidence of pneumonia. ? Solu-Medrol 60 IV twice daily ? DuoNeb every 4 hours scheduled ? Pulmicort twice daily ? Continue Daliresp ? Continue aspirin -Hold clonazepam, hydrocodone - Continue on bipap. Patient has a machine at home, she is noncompliant. ABG 7. compensated - Admit for inpatient Full Code SCDS, heparin for DVT prophylaxis Attestations Medical Necessity Statement*: Patient requires hospitalization for acute encep halopathy, COPD, Diagnoses Acute encephalopathy G93.40 Chronic respiratory failure with hypoxia J96.11 COPD (chronic obstructive pulmonary disease) J44.9 Acute exacerbation of chronic obstructive airways disease J44.1 Panic attacks F41.0 Bipolar 1 disorder F31.9 Asthma-COPD overlap syndrome J44.9
[2022-06-14 18:08] LABS: Procalcitonin 0.04 ng/mL (0-0.5)
[2022-06-14] MEDS: aspirin 81 mg EC Tablet PO (21:47)
[2022-06-15] VITALS (11 sets, daily range): BP systolic 144–166; BP diastolic 73–90; PULSE 78–111; RESP 14–24; TEMP 36.8–37.1; O2SAT 87–100
[2022-06-15 02:38] LABS: Add Urine Microscopic? NO; Charge for UA Resulting for Rev
[2022-06-15 03:09] LABS: Bilirubin Urine Neg (Negative); Blood Urine Neg (Negative); Glucose Urine UA Norm (Normal); Ketones Urine 2+ (Negative); Leukocyte Esterase Urine Negative (Negative); Nitrate Urine Negative (Negative); Protein Urine Neg (Negative); Urine Appearance Clear (CLEAR); Urine Color Yellow (Yellow); Urobilinogen Urine Norm (Negative); pH Urine 6.5 (5-7)
--- NOTE | 2022-06-15 03:26 | PC.NURSE ---
Addendum entered by Meaghan Mcdowell RN 06/15/22 03:31: Patient takes 2 tabs of 10-325 at home. Ordered to give one time order of one tab. Original Note: Patient is asking for her home dose of Hydrocodone. This medication order is currently on hold. Dr. Hearn notified.
[2022-06-15] MEDS: HYDROcodone-acetaminophen 10-325 mg Tablet 1 TAB PO ×2 (03:35→08:42)
[2022-06-15 05:20] LABS: Basophils % 0.1 %; Hematocrit 44.2 % (37.0-47.0); Hemoglobin 14.3 g/dL (11.5-15.3); Lymphocytes # 0.5 10^3/uL (0.8-4.8); Lymphocytes % 3.1 %; Mean Corpuscular HGB Conc 32.4 g/dL (30.0-36.0); Mean Corpuscular Hemoglobin 31.6 pg (28.0-34.0); Mean Corpuscular Volume 97.8 fl (81-99); Mean Platelet Volume 11.3 fL (7.4-10.4); Monocytes # 0.6 10^3/uL (0.2-0.9); Monocytes % 3.8 %; Neutrophils # 14.45 10^3/uL (1.8-7.7); Neutrophils % 92.7 %; Nucleated Red Blood Cells % 0 %; Platelet Count 359 10^3/cmm (130-400); Red Blood Count 4.52 10^6/uL (4.1-5.3); Red Cell Distribution Width 14.4 % (12.1-15.1); White Blood Count 15.6 10^3/uL (4.0-10.0)
[2022-06-15 05:26] LABS: Carbon Dioxide 33 mmol/L (22-29); Chloride 93 mmol/L (98-107); Glucose 149 mg/dL (65-115); Magnesium 2.3 mg/dL (1.7-2.3); Sodium 138 mmol/L (136-145)
[2022-06-15 05:47] LABS: Calcium 10.3 mg/dL (8.5-10.5)
[2022-06-15 06:02] LABS: Blood Urea Nitrogen 19 mg/dL (8-23); Osmolality Calculated 291 mOsm/kg (285-295)
--- NOTE | 2022-06-15 06:02 | PC.NURSE ---
Addendum entered by Meaghan Mcdowell RN 06/15/22 06:16: Dr. Hearn notified. Original Note: Patient refusing medications at this time, stating If I can't have my pain pills, then I don't want any medications.
--- NOTE | 2022-06-15 06:23 | PC.NURSE ---
Patient now wanting to leave AMA. Dr. Hearn notified and ordered given for additional [place] 10 x1. Notified patient of this and patient stated fuck the pain pills, I want out of here. Dr. Hearn notified. Patient alert and oriented x4. Patient educated on AMA process and signed AMA form. Patient states that she has no ride and would need a ride. Patient educated that if she leaves, AMA, insurance would most likely not pay for transport. Patient states I have plenty of money in the bank from social security. Patient agreeable now to await for doctor to round to discuss potential discharge.
[2022-06-15 06:44] LABS: ABG PCO2 48.4 mmHg (35-45); ABG PH Result 7.47 (7.35-7.45); Arterial Blood Gas Hematocrit 41.7 % (37-47); Base Excess ABG 10.3 mmol/L (-2.0-2.0); Blood Gas Allen Test Pos; Blood Gas Sample Site Brachial, right; Blood Gas Sample Type Arterial; HCO3 ABG 35.5 mmol/L (22-26); Oxygen Device NC; PO2 ABG 83.6 mmHg (80.0-100.0)
--- NOTE | 2022-06-15 07:12 | PM.DCS ---
Discharge Providers Date of Admission: 06/14/22 14:41 Date of Discharge: June 15, 2022 Attending Provider at Admission: Roopa Hearn MD Attending Provider at Discharge: Yuniel Hudson MD Primary Care Provider: Carson Murray DO Diagnoses at Discharge Discharge Diagnosis (1) Chronic respiratory failure with hypoxia: Status: Acute (2) COPD (chronic obstructive pulmonary disease): Status: Acute (3) Acute exacerbation of chronic obstructive airways disease: Status: Acute (4) Anxiety disorder: Status: Acute Reason for Visit Reason for Visit: resp distress, wheezing Hospital Course Hospital Course Socorro Montes De Oca is a 72 year old female with past medical history of COPD, anxiety, panic disorder, oxygen dependency on 6 L at baseline presented to the hospital today with increasing shortness of breath.? She was brought in via EMS.? It was difficult to obtain her pulse ox due to her fingers being cold.? She was given Solu-Medrol in route and a breathing treatment.? At this time not having any acute respiratory distress.? Denies fever, chest pain, nausea, vomiting, diarrhea, abdominal pain.? Patient on hospice at home.? She is a full code. Patient was admitted to [facility] for acute hypoxic hypercarbic respiratory failure, secondary to COPD exacerbation, managed on BiPAP therapy, steroid therapy, overall her mentation improved, respiratory status improved. The morning of 06/15/2022, patient wanted to leave AGAINST MEDICAL ADVICE.I examined patient in the morning, she is really upset, very loud, she tells me that she wants to leave the hospital right now, I recommended at least another day in the hospital, for optimization, howeve she r declined. She tells me that you better discharge me right now. patient will be discharged on a prednisone taper, with a close follow-up with primary care provider as outpatient. Physical Exam Const: COMMON NORMALS: no acute distress and patient oriented x3 Resp: COMMON NORMALS: normal respiratory effort, No retractions, No use of accessory muscles and clear to auscultation bilaterally AUSCULTATION: clear to auscultation bilaterally Cardio: COMMON NORMALS: regular rate, regular rhythm, S1 normal heart sound present and S2 normal heart sound present RATE: regular rate RHYTHM: regular rhythm HEART SOUNDS: S1 normal heart sound present and S2 normal heart sound present GI: COMMON NORMALS: Normal to inspection, nondistended, normoactive bowel sounds present and non-tender Extremity: COMMON NORMALS: no pedal edema Neuro: COMMON NORMALS: patient oriented x3 Psych: COMMON NORMALS: mental status grossly normal Discharge Data Studies Completed and Pending Completed Studies During Hospitalization Category Date Time Status XR chest 1V portable [id number] Stat Exams 06/14/22 02:56 Completed Pending at discharge Category Date Time Status Sputum Culture and Gram Stain Stat Lab 06/14/22 06:42 Uncollected Radiology Impressions Chest X-Ray 06/14/22 02:56 IMPRESSION: No chest radiographic evidence of acute cardiopulmonary disease. Laboratory Results WBC 15.6 10^3/uL (4.0-10.0) H 06/15/22 04:43 RBC 4.52 10^6/uL (4.1-5.3) 06/15/22 04:43 Hgb 14.3 g/dL (11.5-15.3) 06/15/22 04:43 Hct 44.2 % (37.0-47.0) 06/15/22 04:43 MCV 97.8 fl (81-99) D 06/15/22 04:43 MCH 31.6 pg (28.0-34.0) 06/15/22 04:43 MCHC 32.4 g/dL (30.0-36.0) D 06/15/22 04:43 RDW 14.4 % (12.1-15.1) 06/15/22 04:43 Plt Count 359 10^3/cmm (130-400) D 06/15/22 04:43 MPV 11.3 fL (7.4-10.4) H 06/15/22 04:43 Neut % (Auto) 92.7 % 06/15/22 04:43 Lymph % (Auto) 3.1 % 06/15/22 04:43 [place] % (Auto) 3.8 % 06/15/22 04:43 Eos % (Auto) 0.0 % 06/15/22 04:43 Baso % (Auto) 0.1 % 06/15/22 04:43 Neut # (Auto) 14.45 10^3/uL (1.8-7.7) H 06/15/22 04:43 Lymph # (Auto) 0.5 10^3/uL (0.8-4.8) L 06/15/22 04:43 [place] # (Auto) 0.6 10^3/uL (0.2-0.9) 06/15/22 04:43 Eos # (Auto) 0.0 10^3/uL (0.0-0.8) 06/15/22 04:43 Baso # (Auto) 0.0 10^3/uL (0.0-0.1) 06/15/22 04:43 Nucleated RBC % (auto) 0 % 06/15/22 04:43 Nucleated RBCs # 0.0 /100WBC 06/15/22 04:43 Specimen Type Arterial 06/15/22 06:32 Sample Site Brachial, right 06/15/22 06:32 ABG pH 7.47 (7.35-7.45) H 06/15/22 06:32 ABG pCO2 48.4 mmHg (35-45) H 06/15/22 06:32 ABG pO2 83.6 mmHg (80.0-100.0) 06/15/22 06:32 ABG HCO3 35.5 mmol/L (22-26) H 06/15/22 06:32 ABG Base Excess 10.3 mmol/L (-2.0-2.0) H 06/15/22 06:32 Stephen Test Pos 06/15/22 06:32 Hematocrit 41.7 % (37-47) 06/15/22 06:32 Hgb O2 Saturation 97.1 % (95-100) 06/14/22 03:10 Carboxyhemoglobin 1.0 %THgb (0.4-20.1) 06/14/22 03:10 Methemoglobin 1.0 % (0.4-1.5) 06/14/22 03:10 Total Hemoglobin 12.5 g/dL (12-16) 06/14/22 03:10 O2 Delivery Device Nc 06/15/22 06:32 O2 Liters/Min 4.0 % 06/15/22 06:32 FiO2 35.0 % 06/14/22 04:30 PEEP 8.0 cmH20 06/14/22 04:30 Lighting Adviser ID [email or web address] 06/15/22 06:32 Sodium 138 mmol/L (136-145) 06/15/22 04:43 Potassium 4.0 mmol/L (3.5-5.1) 06/15/22 04:43 Chloride 93 mmol/L (98-107) L 06/15/22 04:43 Carbon Dioxide 33 mmol/L (22-29) H 06/15/22 04:43 Anion Gap 16.0 (5-19) 06/15/22 04:43 BUN 19 mg/dL (8-23) 06/15/22 04:43 Creatinine 0.5 mg/dL (0.5-0.9) 06/15/22 04:43 GFR Calculation Not Reportable 06/15/22 04:43 Glucose 149 mg/dL (65-115) H 06/15/22 04:43 Calculated Osmolality 291 mOsm/kg (285-295) 06/15/22 04:43 Calcium 10.3 mg/dL (8.5-10.5) 06/15/22 04:43 Magnesium 2.3 mg/dL (1.7-2.3) 06/15/22 04:43 Total Bilirubin 0.6 mg/dL (0.15-1.2) 06/14/22 03:12 AST 18 U/L (0-32) 06/14/22 03:12 ALT 8 U/L (0-33) 06/14/22 03:12 Alkaline Phosphatase 64 U/L (35-105) 06/14/22 03:12 C-Reactive Protein 3.0 mg/L (0.0-4.9) 06/14/22 17:15 NT-Pro-B Natriuret Pep 307 pg/mL (0-125) H 06/14/22 03:12 Total Protein 6.5 g/dL (6.6-8.7) L 06/14/22 03:12 Albumin 4.1 g/dL (3.5-5.2) 06/14/22 03:12 Globulin 2.4 g/dL (1.3-4.6) 06/14/22 03:12 Procalcitonin 0.04 ng/mL (0-0.5) 06/14/22 17:15 Urine Color Yellow (Yellow) 06/15/22 02:15 Urine Appearance Clear (CLEAR) 06/15/22 02:15 Urine pH 6.5 (5-7) 06/15/22 02:15 Ur Specific [place] 1.010 (1.005-1.030) 06/15/22 02:15 Urine Protein Neg (Negative) 06/15/22 02:15 Urine Glucose (UA) Norm (Normal) 06/15/22 02:15 Urine Ketones 2+ (Negative) H 06/15/22 02:15 Urine Blood Neg (Negative) 06/15/22 02:15 Urine Nitrate Negative (Negative) 06/15/22 02:15 Urine Bilirubin Neg (Negative) 06/15/22 02:15 Urine Urobilinogen Norm mg/dL (Negative) 06/15/22 02:15 Ur Leukocyte Esterase Negative (Negative) 06/15/22 02:15 Influenza Type A Ag negative (Negative) 06/14/22 03:20 Influenza Type B Ag negative (Negative) 06/14/22 03:20 SARS-CoV-2 Ag (Rapid) Negative (Negative) 06/14/22 03:20 Vitals Last Vital Signs Temp 98.4 F 06/15/22 03:47 Pulse 90 06/15/22 06:00 Resp 18 06/15/22 03:47 BP 154/90 06/15/22 03:47 Pulse Ox 98 06/15/22 05:12 O2 Del Method 06/15/22 03:47 O2 Flow Rate 4 06/14/22 22:08 FiO2 30 06/15/22 05:12 Discharge Plan Discharge Patient Disposition: Hospice - Home Condition: Stable Prescriptions: New prednisone 10 mg tablet 10 mg PO DIRECTED Qty: 53 0RF Rx Instructions: Take 4 tabs for 5 days, 3 tabs for 5 days, 2 tabs for 5 days, 1 tab for 5 days, 0.5 tab for 5 days Continued albuterol sulfate [Ventolin HFA] 90 mcg/actuation HFA aerosol inhaler 1 - 2 puff INHALATION Q4H PRN (Reason: Shortness Of Breath) hydrocodone-acetaminophen 10-325 mg Tablet 1 - 2 tab PO QID PRN (Reason: Pain) levothyroxine 125 mcg Tablet 125 mcg PO QAM aspirin 81 mg Tablet,Delayed Release (Dr/Ec) 81 mg PO BEDTIME ascorbic acid (vitamin C) [Vitamin C] 500 mg Tablet 500 mg PO DAILY ipratropium-albuterol 0.5 mg-3 mg(2.5 mg base)/3 mL solution for nebulization 3 ml inhalation Q6H PRN (Reason: shortness of breath or wheezing) Qty: 180 0RF Rx Instructions: until breathing returns to target peak flow/parameters Discontinued clonazepam 0.5 mg tablet 1 mg PO QID Discharge Orders: Discharge Order (Routine); Ordered 06/15/22 Ordered By: Yuniel Hudson Referrals: [facility] [Outside] Carson Murray, [Primary Care Provider] - Discharge Diet: Cardiac Discharge Activity: Resume usual activity Patient Instructions: Opioid Safety Activity Restrictions/Additional Instructions: - Please see primary care provider in 1 week Discharge Attestations Time Spent in Discharge Care*: greater than 30 min Status at Discharge: Cognitive status at discharge: mildly impaired cognition, Behavioral status at discharge: can be uncooperative, Quality Metrics Clinical Quality Measures [ No reported AMI, CVA or VTE this stay] Coding Level of Care Code 04250 Total time (in minutes) for Discharge: 30 Diagnoses Chronic respiratory failure with hypoxia J96.11 COPD (chronic obstructive pulmonary disease) J44.9 Acute exacerbation of chronic obstructive airways disease J44.1 Anxiety disorder F41.9
[2022-06-15] MEDS: ipratropium-albuterol 3 mL Neb INHALATION ×2 (08:16→11:06)
[2022-06-15] MEDS: budesonide 0.5 mg/2 mL Neb INHALATION (08:16)
[2022-06-15] MEDS: heparin 5,000 unit/mL INJ 1 mL 5000 UNIT SUBCUT (08:41)
[2022-06-15] MEDS: levothyroxine 125 mcg Tablet PO (08:42)
[2022-06-15] MEDS: ascorbic acid 500 mg Tablet PO (08:42)
--- NOTE | 2022-06-15 10:44 | PC.CHAP ---
Pastoral Care Encounter/Spiritual Assessment Type of Contact [] Declined molding associate visit [] Patient/Family/Request visit [] Outpatient visit [] Follow-up visit [] Physician referral [] Code/Alert [x] Routine visit [] Staff referral [] Actively dying [] Patient sleeping [] Family support [] [] Out of room [] Palliative care [] [x] Receiving care in room [] Pre-surgical visit [] Trauma [] Long length of stay [] ICU visit [] Other: Relational/Emotional Strength [] Patient feels connected with others/family/visitors/staff [x] Distress [] Loneliness/isolation [] Abandonment Spirituality of Patient [] Person of Rylee [] Attends Congregation of their Rylee [] Believes in Prayer [] Reads Bible or Jainism materials [] There are Spiritual issues to be addressed Paperhanger Supervisor Interventions [] Prayer [] Active listening [] Non-anxious presence [] Spiritual/emotional support [] Crisis/trauma care [] Spiritual counseling [] Bereavement support [] Provided bereavement packet [] Provided Bible/devotional materials [] Provided toy/stuffed animal, coloring book to patient or family member [] Provided Communion [] Anointing/[place] [] Salvation [] Completed spiritual assessment [] Other: Impact on Illness or Injury [] Angry [] Fearful [] Anxious [] Often cries [] Exhaustion [] Unable to work [] Unable to attend congregation [] Unable to walk/stand [] Unable to read [] Unable to drive [] Unable to eat/drink [] Unable to sleep [] Unable to be with family [] Patient intubated [] Other: Summary up set over the loss of dog at home negative feeling don't know what is going on or what can done? Time spent with patient 10 mins
--- NOTE | 2022-06-15 16:38 | PC.NURSE ---
Patient discharge education reviewed with patient, patient verbally acknowledged discharge plan of care.
== END 2022-06-15 16:38 | disposition hospice, home (50) | DRG 190 ==
LOC: ER 05:44 → MEDSURG 07:40
PROVIDERS: Admitting Provider Internal Medicine; Emergency Provider Emergency Medicine; PCP Family Medicine; Visit Provider Family Medicine
DX: J44.1 Chronic obstructive pulmonary disease with (acute) exacerbation (principal); J96.21 Acute and chronic respiratory failure with hypoxia; J96.22 Acute and chronic respiratory failure with hypercapnia; G93.49 Other encephalopathy; F31.9 Bipolar disorder, unspecified; F41.9 Anxiety disorder, unspecified; F41.0 Panic disorder [episodic paroxysmal anxiety]; Z99.81 Dependence on supplemental oxygen; Z51.5 Encounter for palliative care; Z79.51 Long term (current) use of inhaled steroids; Z79.891 Long term (current) use of opiate analgesic; Z79.82 Long term (current) use of aspirin; Z87.891 Personal history of nicotine dependence
CPT/HCPCS: 36415; 36600; 51702; 71045; 80048; 80053; 81003; 82803; 82805; 83735; 83880; 84145; 85025; 86140; 87426; 87804; 93005; 94640; 94660; 94664; 94760; 96372; 99285; G0378; J1644; J2930; J7613; J7626

== ENCOUNTER 2022-06-26 21:01 | Emergency (ER) | payer MEDICARE, SELFPAY ==
[2022-06-26] VITALS (33 sets, daily range): BP systolic 113–139; BP diastolic 58–82; PULSE 68–89; RESP 10–48; TEMP 36.3; O2SAT 96–100; BMI 26.5
--- NOTE | 2022-06-26 21:07 | ECG_ITS ---
[facility] Test Date: 2022-06-26 Pat Name: Socorro Montes De Oca Department: Room: Gender: Female Grievance Manager: : [id number] Requested By: Casey Regan Order Number: [id number] Octavio MD: Giorgi Justin M.D. Measurements Intervals [place] Rate: 77 P: 0 AK: 0 QRS: 81 QRSD: 76 T: 120 QT: 380 QTc: 431 Interpretive Statements SUPRAVENTRICULAR RHYTHM POSSIBLE RIGHT VENTRICULAR CONDUCTION DELAY [RSR (QR) IN V1/V2] MODERATE ST DEPRESSION [0.05+ mV ST DEPRESSION] Compared to ECG 06/14/2022 03:03:11 Supraventricular rhythm now present Sinus rhythm no longer present ST (T wave) deviation still present Electronically Signed On 06-26-2022 23:45:12 CDT by Giorgi Justin M.D. [email or web address]
--- NOTE | 2022-06-26 21:07 | XRR_ITS ---
PROCEDURE INFORMATION: Exam: XR Chest Exam date and time: 06/26/2022 9:24 PM Age: 72 years old Clinical indication: Shortness of breath; Additional info: Dyspnea TECHNIQUE: Imaging protocol: Radiologic exam of the chest. Views: 1 view. COMPARISON: CR (CHEST, ) 06/14/2022 2:59 AM FINDINGS: Lungs: Unremarkable. No consolidation. Pleural spaces: Unremarkable. No pleural effusion. No pneumothorax. Heart/Mediastinum: Unremarkable. No cardiomegaly. Bones/joints: Unremarkable. XR/XR chest 1V portable [id number] IMPRESSION: No acute findings.
[2022-06-26 21:22] LABS: Basophils % 0.5 %; Eosinophils # 0.6 10^3/uL (0.0-0.8); Eosinophils % 7.2 %; Hematocrit 44.2 % (37.0-47.0); Hemoglobin 13.8 g/dL (11.5-15.3); Lymphocytes # 2.2 10^3/uL (0.8-4.8); Lymphocytes % 27.7 %; Mean Corpuscular HGB Conc 31.2 g/dL (30.0-36.0); Mean Corpuscular Hemoglobin 31.7 pg (28.0-34.0); Mean Corpuscular Volume 101.4 fl (81-99); Mean Platelet Volume 10.7 fL (7.4-10.4); Monocytes # 0.8 10^3/uL (0.2-0.9); Monocytes % 9.9 %; Neutrophils # 4.29 10^3/uL (1.8-7.7); Neutrophils % 54.3 %; Nucleated Red Blood Cells % 0 %; Platelet Count 344 10^3/cmm (130-400); Red Blood Count 4.36 10^6/uL (4.1-5.3); Red Cell Distribution Width 13.8 % (12.1-15.1); White Blood Count 7.9 10^3/uL (4.0-10.0)
--- NOTE | 2022-06-26 21:24 | ED_ITS ---
Documented by User: Casey Regan DO 06/26/22 22:48 HPI - SOB/Dyspnea General: Chief Complaint: Shortness of Breath/Dyspnea Stated Complaint: SOB Time Seen by Provider: 06/26/22 21:03 History of Present Illness: HPI Narrative: Patient presents to the ER by EMS with complaints of having increased shortness of breath starting today. Patient normally wears 6 L of oxygen at home. Patient does have a history of COPD. Patient is also complained of a headache. Patient appears in no acute distress upon arrival EMS did give patient 1 DuoNeb breathing treatment while in route. Patient was recently placed in the hospital for acute encephalopathy just discharge approximately 10 days ago MD elicited complaint: shortness of breath Pertinent past history: COPD Onset (ago): day(s) (Earlier today) Timing: constant Severity: mild Exacerbating factors: exertion Relieving factors: oxygen Known history of: COPD Associated symptoms: Reports no associated symptoms; Deny abdominal pain, chest pain, fever(s), nausea, palpitations or vomiting Treatment prior to arrival: bronchodilator Review of Systems General: Reports: 10 or more systems reviewed and unremarkable except in HPI and below Const: Denies: fever(s) or chills Eyes: Denies: change in vision ENMT: Denies: throat pain Card: Denies: chest pain, palpitations, irregular heart rhythm or edema Resp: Reports: dyspnea GI: Denies: abdominal pain, nausea, vomiting or diarrhea : Denies: flank pain Musc: Denies: neck pain or back pain PFSH ED PFSH: Medical History Chronic respiratory failure with hypoxia COPD (chronic obstructive pulmonary disease) Panic anxiety syndrome Surgical History History of appendectomy History of cholecystectomy History of hysterectomy Hx of tonsillectomy Social History Smoking and tobacco status: former smoker Quit status (tobacco): has quit using tobacco Year quit tobacco: 2014 - 1PPD x 40 Years Alcohol intake: never Lives independently: Yes Household members: none Current occupational status: disabled Pets and animals: Yes Pets & animals: dog(s) Current gender identity: Female Physical Exam Const: COMMON NORMALS: no acute distress, average body habitus, patient oriented x3, no limitations, alert and well nourished HENMT: COMMON NORMALS: normocephalic, atraumatic, hearing grossly normal bilaterally, Normal external nose present and moist oral mucous membranes HEAD & SCALP: normocephalic and atraumatic NOSE: Normal external nose present Eye: COMMON NORMALS: Equal, round and reactive pupils present, EOMs intact bilaterally, conjunctivae normal and no scleral icterus CONJUNCTIVA: Yes conjunctivae normal PUPIL: Yes Equal, round and reactive pupils present Neck/C-Spine: COMMON NORMALS: full ROM, no lymphadenopathy, supple, no meningeal signs, no JVD and Thyroid normal THYROID: Thyroid normal Chest: COMMONS NORMALS: normal inspection of the chest and normal palpation of entire chest wall Resp: EFFORT & INSPECTION: Yes able to speak in complete sentences AUSCULTATION: diminished lung sounds diffuse Cardio: COMMON NORMALS: no JVD, regular rate, regular rhythm, S1 normal heart sound present and S2 normal heart sound present RATE: regular rate RHYTHM: regular rhythm HEART SOUNDS: S1 normal heart sound present and S2 normal heart sound present GI: COMMON NORMALS: Normal to inspection, nondistended, normoactive bowel sounds present, Soft to palpation, non-tender and No hepatosplenomegaly present PALPATION: Yes Soft to palpation and Yes No hepatosplenomegaly present : COMMON NORMALS: Yes no CVA tenderness BLADDER/KIDNEY EXAM: Yes no CVA tenderness Back/Pelvis: COMMON NORMALS: no CVA tenderness Extremity: COMMON NORMALS: normal to inspection Neuro: COMMON NORMALS: patient oriented x3, CN's II-XII intact bilaterally, moves all extremities, no focal motor deficits and no sensory deficits noted SENSORIUM/ORIENTATION: Yes alert MENINGEAL SIGNS: Yes no meningeal signs Course Vital Signs: Vital signs: Vital Signs Temperature 97.3 F L 06/26/22 21:05 Pulse Rate 72 06/26/22 23:05 Respiratory Rate 20 H 06/26/22 23:05 Blood Pressure 113/73 06/26/22 23:05 Pulse Oximetry 100 06/26/22 23:05 Oxygen Delivery Me thod 06/26/22 21:09 Oxygen Flow Rate 6 06/26/22 21:09 MDM - SOB/Dyspnea Differential Diagnosis Likely acute exacerbation of chronic obstructive airways disease; Unlikely congestive heart failure, community acquired pneumonia, asthma with exacerbation or pulmonary embolism Lab Data 06/26/22 20:51 06/26/22 20:51 Labs/Radiology: Radiology Impressions Chest X-Ray 06/26/22 21:07 IMPRESSION: No acute findings. Laboratory Results WBC 7.9 10^3/uL (4.0-10.0) 06/26/22 20:51 RBC 4.36 10^6/uL (4.1-5.3) 06/26/22 20:51 Hgb 13.8 g/dL (11.5-15.3) 06/26/22 20:51 Hct 44.2 % (37.0-47.0) 06/26/22 20:51 MCV 101.4 fl (81-99) H 06/26/22 20:51 MCH 31.7 pg (28.0-34.0) 06/26/22 20:51 MCHC 31.2 g/dL (30.0-36.0) 06/26/22 20:51 RDW 13.8 % (12.1-15.1) 06/26/22 20:51 Plt Count 344 10^3/cmm (130-400) 06/26/22 20:51 MPV 10.7 fL (7.4-10.4) H 06/26/22 20:51 Neut % (Auto) 54.3 % 06/26/22 20:51 Lymph % (Auto) 27.7 % 06/26/22 20:51 Edmonson % (Auto) 9.9 % 06/26/22 20:51 Eos % (Auto) 7.2 % 06/26/22 20:51 Baso % (Auto) 0.5 % 06/26/22 20:51 Neut # (Auto) 4.29 10^3/uL (1.8-7.7) 06/26/22 20:51 Lymph # (Auto) 2.2 10^3/uL (0.8-4.8) 06/26/22 20:51 [place] # (Auto) 0.8 10^3/uL (0.2-0.9) 06/26/22 20:51 Eos # (Auto) 0.6 10^3/uL (0.0-0.8) 06/26/22 20:51 Baso # (Auto) 0.0 10^3/uL (0.0-0.1) 06/26/22 20:51 Nucleated RBC % (auto) 0 % 06/26/22 20:51 Nucleated RBCs # 0.0 /100WBC 06/26/22 20:51 Specimen Type Arterial 06/26/22 23:03 Sample Site Radial, left 06/26/22 23:03 ABG pH 7.36 (7.35-7.45) 06/26/22 23:03 ABG pCO2 60.3 mmHg (35-45) H* 06/26/22 23:03 ABG pO2 72.4 mmHg (80.0-100.0) L 06/26/22 23:03 ABG HCO3 34.4 mmol/L (22-26) H 06/26/22 23:03 ABG O2 Saturation 97.5 06/26/22 21:36 ABG Base Excess 7.1 mmol/L (-2.0-2.0) H 06/26/22 23:03 Stephen Test Pos 06/26/22 23:03 Hematocrit 38.2 % (37-47) 06/26/22 23:03 Hgb O2 Saturation 95.7 % (95-100) 06/26/22 21:36 Carboxyhemoglobin 0.9 %THgb (0.4-20.1) 06/26/22 21:36 Methemoglobin 1.0 % (0.4-1.5) 06/26/22 21:36 Total Hemoglobin 12.7 g/dL (12-16) 06/26/22 21:36 Sodium 143.0 mmol/L (131-143) 06/26/22 21:36 Potassium 4.2 mmol/L (3.5-5.0) 06/26/22 21:36 Glucose 112.0 mg/dL (70-115) 06/26/22 21:36 Ionized Calcium 1.3 mmol/L (1.1-1.4) 06/26/22 21:36 O2 Delivery Device Nc 06/26/22 23:03 O2 Liters/Min 2.0 % 06/26/22 21:36 FiO2 2.0 % 06/26/22 23:03 Surgical Services Manager ID [email or web address] 06/26/22 23:03 Sodium 137 mmol/L (136-145) 06/26/22: Potassium 4.0 mmol/L (3.5-5.1) 06/26/22 20:51 Chloride 95 mmol/L (98-107) L 06/26/22 20:51 Carbon Dioxide 35 mmol/L (22-29) H 06/26/22 20:51 Anion Gap 11.0 (5-19) 06/26/22 20:51 BUN 18 mg/dL (8-23) 06/26/22 20:51 Creatinine 0.5 mg/dL (0.5-0.9) 06/26/22 20:51 GFR Calculation Not Reportable 06/26/22 20:51 Glucose 123 mg/dL (65-115) H 06/26/22 20:51 Calculated Osmolality 287 mOsm/kg (285-295) 06/26/22 20:51 Calcium 9.9 mg/dL (8.5-10.5) 06/26/22 20:51 Total Bilirubin 0.3 mg/dL (0.15-1.2) 06/26/22 20:51 AST 16 U/L (0-32) 06/26/22 20:51 ALT 11 U/L (0-33) 06/26/22 20:51 Alkaline Phosphatase 82 U/L (35-105) 06/26/22 20:51 Troponin T Baseline 10 ng/L (0-10) 06/26/22 20:51 Troponin T 120 Minute 9.65 ng/L (0-10) 06/26/22 22:42 NT-Pro-B Natriuret Pep 207 pg/mL (0-125) H 06/26/22 20:51 Total Protein 6.5 g/dL (6.6-8.7) L 06/26/22 20:51 Albumin 4.5 g/dL (3.5-5.2) 06/26/22 20:51 Globulin 2.0 g/dL (1.3-4.6) 06/26/22 20:51 Influenza Type A Ag negative (Negative) 06/26/22 21:17 Influenza Type B Ag negative (Negative) 06/26/22 21:17 SARS-CoV-2 Ag (Rapid) negative (Negative) 06/26/22 21:17 EKG Data EKG 1: I personally reviewed and interpreted this EKG as follows: EKG Interpretation Date: 04/10/23 EKG interpretation time: 21:06 Prior EKG tracings: not available for review Interpretation: Supraventricular rhythm with a rate of 77 bpm, QRS duration 76, QTc 412, possible right ventricular conduction delay, Discharge Plan Discharge Patient Disposition: Home Clinical Impression: COPD (chronic obstructive pulmonary disease) Condition: Stable Prescriptions: New prednisone 50 mg tablet 50 mg PO DAILY Qty: 5 0RF No Action albuterol sulfate [Ventolin HFA] 90 mcg/actuation HFA aerosol inhaler 1 - 2 puff INHALATION Q4H PRN (Reason: Shortness Of Breath) hydrocodone-acetaminophen 10-325 mg Tablet 1 - 2 tab PO QID PRN (Reason: Pain) levothyroxine 125 mcg Tablet 125 mcg PO QAM prednisone 10 mg tablet 10 mg PO DIRECTED Qty: 53 0RF Rx Instructions: Take 4 tabs for 5 days, 3 tabs for 5 days, 2 tabs for 5 days, 1 tab for 5 days, 0.5 tab for 5 days aspirin 81 mg Tablet,Delayed Release (Dr/Ec) 81 mg PO BEDTIME ascorbic acid (vitamin C) [Vitamin C] 500 mg Tablet 500 mg PO DAILY ipratropium-albuterol 0.5 mg-3 mg(2.5 mg base)/3 mL solution for nebulization 3 ml inhalation Q6H PRN (Reason: shortness of breath or wheezing) Qty: 180 0RF Rx Instructions: until breathing returns to target peak flow/parameters Discharge Orders: Discharge ED (Routine); Ordered 06/26/22 Ordered By: Harshad Gardner Referrals: Carson Murray DO [Primary Care Provider] - Discharge Diet: Advance as tolerated Discharge Activity: Resume usual activity Patient Instructions: COPD (Chronic Obstructive Pulmonary Disease) (ED) Coding Level of Care Code ED Rotary Cutter for Chg Fwd Documented by User: Harshad Gardner MD 06/26/22 23:19 HPI - SOB/Dyspnea General: Chief Complaint: Shortness of Breath/Dyspnea Stated Complaint: SOB Time Seen by Provider: 06/26/22 21:03 [facility] ED PFSH: Medical History Chronic respiratory failure with hypoxia COPD (chronic obstructive pulmonary disease) Panic anxiety syndrome Surgical History History of appendectomy History of cholecystectomy History of hysterectomy Hx of tonsillectomy Social History Smoking and tobacco status: former smoker Quit status (tobacco): has quit using tobacco Year quit tobacco: 2014 - 1PPD x 40 Years Alcohol intake: never Lives independently: Yes Household members: none Current occupational status: disabled Pets and animals: Yes Pets & animals: dog(s) Current gender identity: Female Course Vital Signs: Vital signs: Vital Signs Temperature 97.3 F L 06/26/22 21:05 Pulse Rate 72 06/26/22 23:05 Respiratory Rate 20 H 06/26/22 23:05 Blood Pressure 113/73 06/26/22 23:05 Pulse Oximetry 100 06/26/22 23:05 Oxygen Delivery Me thod 06/26/22 21:09 Oxygen Flow Rate 6 06/26/22 21:09 MDM - SOB/Dyspnea Medical Decision Making Patient presents here with COPD exacerbation she is much improved here repeat ABG showed improved CO2 level she has chronic hypercapnia which is compensated she is in no distress able speak in full sentences x-ray shows no pneumonia she is stable for discharge she is to follow-up with PCP and return if worsening she understands agrees to plan. Lab Data 06/26/22 20:51 06/26/22 20:51 Labs/Radiology: Radiology Impressions Chest X-Ray 06/26/22 21:07 IMPRESSION: No acute findings. Laboratory Results WBC 7.9 10^3/uL (4.0-10.0) 06/26/22 20:51 RBC 4.36 10^6/uL (4.1-5.3) 06/26/22 20:51 Hgb 13.8 g/dL (11.5-15.3) 06/26/22 20:51 Hct 44.2 % (37.0-47.0) 06/26/22 20:51 MCV 101.4 fl (81-99) H 06/26/22 20: MCH 31.7 pg (28.0-34.0) 06/26/22 20: MCHC 31.2 g/dL (30.0-36.0) 06/26/22 20: RDW 13.8 % (12.1-15.1) 06/26/22 20: Plt Count 344 10^3/cmm (130-400) 06/26/22 20: MPV 10.7 fL (7.4-10.4) H 06/26/22 20:51 Neut % (Auto) 54.3 % 06/26/22 20: Lymph % (Auto) 27.7 % 06/26/22 20: Edmonson % (Auto) 9.9 % 06/26/22: Eos % (Auto) 7.2 % 06/26/22 20: Baso % (Auto) 0.5 % 06/26/22 20: Neut # (Auto) 4.29 10^3/uL (1.8-7.7) 06/26/22 20: Lymph # (Auto) 2.2 10^3/uL (0.8-4.8) 06/26/22 20: [place] # (Auto) 0.8 10^3/uL (0.2-0.9) 06/26/22 20: Eos # (Auto) 0.6 10^3/uL (0.0-0.8) 06/26/22 20: Baso # (Auto) 0.0 10^3/uL (0.0-0.1) 06/26/22: Nucleated RBC % (auto) 0 % 06/26/22 20: Nucleated RBCs # 0.0 /100WBC 06/26/22 20:51 Specimen Type Arterial 06/26/22 23:03 Sample Site Radial, left 06/26/22 23:03 ABG pH 7.36 (7.35-7.45) 06/26/22 23:03 ABG pCO2 60.3 mmHg (35-45) H* 06/26/22 23:03 ABG pO2 72.4 mmHg (80.0-100.0) L 06/26/22 23:03 ABG HCO3 34.4 mmol/L (22-26) H 06/26/22 23:03 ABG O2 Saturation 97.5 06/26/22 21:36 ABG Base Excess 7.1 mmol/L (-2.0-2.0) H 06/26/22 23:03 Stephen Test Pos 06/26/22 23:03 Hematocrit 38.2 % (37-47) 06/26/22 23:03 Hgb O2 Saturation 95.7 % (95-100) 06/26/22 21:36 Carboxyhemoglobin 0.9 %THgb (0.4-20.1) 06/26/22 21:36 Methemoglobin 1.0 % (0.4-1.5) 06/26/22 21:36 Total Hemoglobin 12.7 g/dL (12-16) 06/26/22 21:36 Sodium 143.0 mmol/L (131-143) 06/26/22 21:36 Potassium 4.2 mmol/L (3.5-5.0) 06/26/22 21:36 Glucose 112.0 mg/dL (70-115) 06/26/22 21:36 Ionized Calcium 1.3 mmol/L (1.1-1.4) 06/26/22 21:36 O2 Delivery Device Nc 06/26/22 23:03 O2 Liters/Min 2.0 % 06/26/22 21:36 FiO2 2.0 % 06/26/22 23:03 Surgical Services Manager ID [email or web address] 06/26/22 23:03 Sodium 137 mmol/L (136-145) 06/26/22 20:51 Potassium 4.0 mmol/L (3.5-5.1) 06/26/22 20:51 Chloride 95 mmol/L (98-107) L 06/26/22 20:51 Carbon Dioxide 35 mmol/L (22-29) H 06/26/22 20:51 Anion Gap 11.0 (5-19) 06/26/22 20:51 BUN 18 mg/dL (8-23) 06/26/22 20:51 Creatinine 0.5 mg/dL (0.5-0.9) 06/26/22 20:51 GFR Calculation Not Reportable 06/26/22 20:51 Glucose 123 mg/dL (65-115) H 06/26/22 20:51 Calculated Osmolality 287 mOsm/kg (285-295) 06/26/22 20:51 Calcium 9.9 mg/dL (8.5-10.5) 06/26/22 20:51 Total Bilirubin 0.3 mg/dL (0.15-1.2) 06/26/22 20:51 AST 16 U/L (0-32) 06/26/22 20:51 ALT 11 U/L (0-33) 06/26/22 20:51 Alkaline Phosphatase 82 U/L (35-105) 06/26/22 20:51 Troponin T Baseline 10 ng/L (0-10) 06/26/22 20:51 Troponin T 120 Minute 9.65 ng/L (0-10) 06/26/22 22:42 NT-Pro-B Natriuret Pep 207 pg/mL (0-125) H 06/26/22 20:51 Total Protein 6.5 g/dL (6.6-8.7) L 06/26/22 20:51 Albumin 4.5 g/dL (3.5-5.2) 06/26/22 20:51 Globulin 2.0 g/dL (1.3-4.6) 06/26/22 20:51 Influenza Type A Ag negative (Negative) 06/26/22 21:17 Influenza Type B Ag negative (Negative) 06/26/22 21:17 SARS-CoV-2 Ag (Rapid) negative (Negative) 06/26/22 21:17 Discharge Plan Discharge Patient Disposition: Home Clinical Impression: COPD (chronic obstructive pulmonary disease) Condition: Stable Prescriptions: New prednisone 50 mg tablet 50 mg PO DAILY Qty: 5 0RF No Action albuterol sulfate [Ventolin HFA] 90 mcg/actuation HFA aerosol inhaler 1 - 2 puff INHALATION Q4H PRN (Reason: Shortness Of Breath) hydrocodone-acetaminophen 10-325 mg Tablet 1 - 2 tab PO QID PRN (Reason: Pain) levothyroxine 125 mcg Tablet 125 mcg PO QAM prednisone 10 mg tablet 10 mg PO DIRECTED Qty: 53 0RF Rx Instructions: Take 4 tabs for 5 days, 3 tabs for 5 days, 2 tabs for 5 days, 1 tab for 5 days, 0.5 tab for 5 days aspirin 81 mg Tablet,Delayed Release (Dr/Ec) 81 mg PO BEDTIME ascorbic acid (vitamin C) [Vitamin C] 500 mg Tablet 500 mg PO DAILY ipratropium-albuterol 0.5 mg-3 mg(2.5 mg base)/3 mL solution for nebulization 3 ml inhalation Q6H PRN (Reason: shortness of breath or wheezing) Qty: 180 0RF Rx Instructions: until breathing returns to target peak flow/parameters Discharge Orders: Discharge ED (Routine); Ordered 06/26/22 Ordered By: Harshad Gardner Referrals: Carson Murray, [Primary Care Provider] - Discharge Diet: Advance as tolerated Discharge Activity: Resume usual activity Patient Instructions: COPD (Chronic Obstructive Pulmonary Disease) (ED) Coding Level of Care Code ED Rotary Cutter for Ji Melgar
[2022-06-26 21:39] LABS: Influenza A by IFA negative (Negative); Influenza B by IFA negative (Negative); SARS Covid-2 Antigen negative (Negative)
[2022-06-26 21:42] LABS: Troponin(5th) Baseline 10 ng/L (0-10)
[2022-06-26 21:45] LABS: ABG PH Result 7.33 (7.35-7.45); Blood Gas Allen Test Pos; Blood Gas Sample Site Radial, left; Blood Gas Sample Type Arterial; Carboxyhemoglobin 0.9 %THgb (0.4-20.1); HGB O2 Sat 95.7 % (95-100); Ionized Calcium Level - ABG 1.3 mmol/L (1.1-1.4); Oxygen Device NC; Oxygen Saturation ABG 97.5; PO2 ABG 86.2 mmHg (80.0-100.0); Potassium Level - ABG 4.2 mmol/L (3.5-5.0); Total Hemoglobin 12.7 g/dL (12-16)
[2022-06-26 21:51] LABS: Alanine Aminotransferase 11 U/L (0-33); Albumin Level 4.5 g/dL (3.5-5.2); Alkaline Phosphatase 82 U/L (35-105); Aspartate Amino Transferase 16 U/L (0-32); Blood Urea Nitrogen 18 mg/dL (8-23); Calcium 9.9 mg/dL (8.5-10.5); Carbon Dioxide 35 mmol/L (22-29); Chloride 95 mmol/L (98-107); Creatinine Clr Calc Pharmacy 57.1281; Glucose 123 mg/dL (65-115); NT Pro B Type Natriuretic Pept 207 pg/mL (0-125); Osmolality Calculated 287 mOsm/kg (285-295); Sodium 137 mmol/L (136-145); Total Bilirubin 0.3 mg/dL (0.15-1.2); Total Protein 6.5 g/dL (6.6-8.7)
[2022-06-26] MEDS: ketorolac 30 mg/mL INJ 15 MG IVP (22:55)
[2022-06-26 23:06] LABS: Troponin 5 2HR 9.65 ng/L (0-10)
--- NOTE | 2022-06-26 23:09 | ECG_ITS ---
[facility] Test Date: 2022-06-26 Pat Name: Socorro Montes De Oca Department: Room: Gender: Female Harness Rigger: : 1950 Requested By: Casey Regan Order Number: [id number] Octavio MD: Giorgi Justin M.D. Measurements Intervals [place] Rate: 72 P: 0 ID: 0 QRS: 97 QRSD: 87 T: 121 QT: 387 QTc: 425 Interpretive Statements SUPRAVENTRICULAR RHYTHM BORDERLINE RIGHT AXIS DEVIATION [QRS AXIS > 90] POSSIBLE RIGHT VENTRICULAR CONDUCTION DELAY [RSR (QR) IN V1/V2] MODERATE ST DEPRESSION [0.05+ mV ST DEPRESSION] Compared to ECG 06/26/2022 21:06:34 No significant changes Electronically Signed On 06-26-2022 23:53:36 CDT by Giorgi Justin M.D. [email or web address]
[2022-06-26 23:13] LABS: ABG PH Result 7.36 (7.35-7.45); Arterial Blood Gas Hematocrit 38.2 % (37-47); Base Excess ABG 7.1 mmol/L (-2.0-2.0); Blood Gas Allen Test Pos; Blood Gas Sample Type Arterial; HCO3 ABG 34.4 mmol/L (22-26); PO2 ABG 72.4 mmHg (80.0-100.0)
[2022-06-26 23:14] LABS: Blood Gas Sample Site Radial, left; Oxygen Device NC
[2022-06-26 23:15] LABS: ABG PCO2 60.3 mmHg (35-45)
[2022-06-26 23:20] LABS: Troponin 5 2HR Delta 0.35 ABS# (0-10)
[2022-06-27] VITALS: BP 133/65; PULSE 77; RESP 23; O2SAT 99
[2022-06-27 00:05] VITALS: BP 141/67
== END 2022-06-27 00:06 | disposition home or self-care (01) ==
PROVIDERS: Emergency Medicine; Emergency Provider Emergency Medicine; PCP Family Medicine
DX: J44.9 Chronic obstructive pulmonary disease, unspecified (principal); Z79.82 Long term (current) use of aspirin; Z20.822 Contact with and (suspected) exposure to COVID-19; Z87.891 Personal history of nicotine dependence
CPT/HCPCS: 36600; 71045; 80051; 80053; 82330; 82803; 82805; 83880; 84484; 85025; 87426; 87804; 93005; 96374; 96375; 99285; J1885; J2930

== ENCOUNTER 2022-06-27 08:30 | Emergency (ER) | payer MEDICARE, SELFPAY ==
[2022-06-27] VITALS (35 sets, daily range): BP systolic 140–180; BP diastolic 79–107; PULSE 106–118; RESP 17–34; TEMP 36.9; O2SAT 88–100
--- NOTE | 2022-06-27 08:35 | XR_ITS ---
WS: [id number] EXAMINATION: XR chest 1V portable [id number] REASON FOR EXAM: dyspnea/cough COMPARISON: 06/26/2022 ORDER DATE: 06/27/2022 9:00 AM TECHNIQUE: A single, portable frontal chest x-ray was obtained. X-RAY FINDINGS: The lungs are clear. Pleural spaces are clear. No pleural effusions or pneumothorax. Cardiomediastinal silhouette is unremarkable except for atherosclerotic calcified plaque in the aorta . No evidence for pulmonary edema. Soft tissue and osseous structures are unremarkable. No tubes or lines are present. XR/XR chest 1V portable [id number] IMPRESSION: Unremarkable frontal portable chest x-ray.
--- NOTE | 2022-06-27 08:35 | ECG_ITS ---
[facility] Test Date: 2022-06-27 Pat Name: Socorro Montes De Oca Department: Room: Gender: Female Ordnance Artificer Helper: : 1950 Requested By: Alex Scales Order Number: [id number] Octavio MD: Giorgi Justin M.D. Measurements Intervals [place] Rate: 109 P: 52 SC: 102 QRS: 42 QRSD: 86 T: 72 QT: 340 QTc: 458 Interpretive Statements SINUS TACHYCARDIA WITH SHORT SC INTERVAL POSSIBLE RIGHT VENTRICULAR CONDUCTION DELAY [RSR (QR) IN V1/V2] ST DEVIATION AND MODERATE T-WAVE ABNORMALITY, CONSIDER ANTEROLATERAL ISCHEMIA [-0.1+ mV T-WAVE IN V3-V6] Compared to ECG 06/26/2022 22:58:37 Short SC interval now present T-wave abnormality now present Possible ischemia now present Supraventricular rhythm no longer present ST (T wave) deviation no longer present Electronically Signed On 06-28-2022 2:17:03 CDT by Giorgi Justin M.D. [email or web address]
--- NOTE | 2022-06-27 08:48 | W.ED.SOB ---
HPI - SOB/Dyspnea General: Chief Complaint: Shortness of Breath/Dyspnea Stated Complaint: RESPIRATORY DISTRESS Time Seen by Provider: 06/27/22 08:33 Source: patient Mode of arrival: EMS History of Present Illness: HPI Narrative: 72-year-old female presents emergency room complaining of shortness of breath. Had received an albuterol treatment 125 mg of Solu-Medrol in route. They reported a heart rate of 140 in the field. On arrival here she was on a 5 L nonrebreather when I came to the room she is on 2 L on nasal cannula that was in her mouth which she refused to remove. We did turn her oxygen off she maintained sats in the mid 90s. She tells me at home that she uses 6 L by nasal cannula continuously. She denies any chest pain no productive cough. No vomiting no diarrhea. MD elicited complaint: shortness of breath and cough Pertinent past history: COPD Onset (ago): day(s) Timing: constant Severity: moderate Exacerbating factors: nothing Known history of: COPD Associated symptoms: Reports chest congestion and cough; Deny abdominal pain, chest pain, diaphoresis, dizziness, extremity pain, fever(s), hemoptysis, lightheadedness, myalgias, nausea, orthopnea, palpitations, paresthesias, polydipsia, polyuria, rash, sense of impending doom, syncope or vomiting Review of Systems Const: Denies: fever(s), chills, fatigue, malaise or diaphoresis ENMT: Denies: throat pain, ear or mastoid pain, nasal discharge or nasal congestion Card: Denies: chest pain, palpitations, lightheadedness, syncope or orthopnea Resp: Reports: dyspnea, non-productive cough, wheezing and chest congestion; Denies: productive cough or hemoptysis GI: Denies: abdominal pain, nausea or vomiting : Denies: flank pain, difficulty voiding, dysuria, urinary frequency or urinary urgency Musc: Denies: extremity pain Skin/Breast: Denies: rash or pruritus Neuro: Denies: dizziness Endo: Denies: polyuria or polydipsia [facility] ED PFSH: Medical History Chronic respiratory failure with hypoxia COPD (chronic obstructive pulmonary disease) Panic anxiety syndrome Surgical History History of appendectomy History of cholecystectomy History of hysterectomy Hx of tonsillectomy Social History Smoking and tobacco status: former smoker Quit status (tobacco): has quit using tobacco Year quit tobacco: 2014 - 1PPD x 40 Years Alcohol intake: never Lives independently: Yes Household members: none Current occupational status: disabled Pets and animals: Yes Pets & animals: dog(s) Current gender identity: Female Course Vital Signs: Vital signs: Vital Signs Temperature 98.4 F 06/27/22 08:30 Pulse Rate 115 H 06/27/22 12:00 Respiratory Rate 23 H 06/27/22 12:00 Blood Pressure 141/104 06/27/22 12:11 Pulse Oximetry 95 06/27/22 12:00 Oxygen Delivery Me thod 06/27/22 12:00 Oxygen Flow Rate 2 06/27/22 12:00 MDM - SOB/Dyspnea Medical Decision Making Labs imaging and EKG reviewed. Patient has moderate COPD exacerbation is tolerating well improved after steroids and nebulizers discharged home on steroids and nebs and follow-up with her primary care doc we will also add doxycycline if not improving return. Medical Records I reviewed the patient's medical records. Lab Data I reviewed the patient's lab results. 06/27/22 09:18 06/27/22 09:18 Labs/Radiology: Radiology Impressions Chest X-Ray 06/27/22 08:35 IMPRESSION: Unremarkable frontal portable chest x-ray. Laboratory Results WBC 10.9 10^3/uL (4.0-10.0) H 06/27/22 09:18 RBC 4.34 10^6/uL (4.1-5.3) 06/27/22 09:18 Hgb 13.7 g/dL (11.5-15.3) 06/27/22 09:18 Hct 42.6 % (37.0-47.0) 06/27/22 09:18 MCV 98.2 fl (81-99) 06/27/22 09:18 MCH 31.6 pg (28.0-34.0) 06/27/22 09:18 MCHC 32.2 g/dL (30.0-36.0) 06/27/22 09:18 RDW 13.6 % (12.1-15.1) 06/27/22 09:18 Plt Count 360 10^3/cmm (130-400) 06/27/22 09:18 MPV 10.5 fL (7.4-10.4) H 06/27/22 09:18 Neut % (Auto) 94.0 % 06/27/22 09:18 Lymph % (Auto) 5.1 % 06/27/22 09:18 [place] % (Auto) 0.4 % 06/27/22 09:18 Eos % (Auto) 0.0 % 06/27/22 09:18 Baso % (Auto) 0.0 % 06/27/22 09:18 Neut # (Auto) 10.23 10^3/uL (1.8-7.7) H 06/27/22 09:18 Lymph # (Auto) 0.6 10^3/uL (0.8-4.8) L 06/27/22 09:18 [place] # (Auto) 0.0 10^3/uL (0.2-0.9) L 06/27/22 09:18 Eos # (Auto) 0.0 10^3/uL (0.0-0.8) 06/27/22 09:18 Baso # (Auto) 0.0 10^3/uL (0.0-0.1) 06/27/22 09:18 Nucleated RBC % (auto) 0 % 06/27/22 09:18 Nucleated RBCs # 0.0 /100WBC 06/27/22 09:18 Specimen Type Arterial 06/27/22 09:05 Sample Site Brachial, right 06/27/22 09:05 ABG pH 7.47 (7.35-7.45) H 06/27/22 09:05 ABG pCO2 44.7 mmHg (35-45) 06/27/22 09:05 ABG pO2 48.8 mmHg (80.0-100.0) L 06/27/22 09:05 ABG HCO3 32.2 mmol/L (22-26) H 06/27/22 09:05 ABG O2 Saturation 89.2 06/27/22 09:05 ABG Base Excess 7.4 mmol/L (-2.0-2.0) H 06/27/22 09:05 Stephen Test Pos 06/27/22 09:05 A-a O2 Gradient 6.3 mmHg (5-10) 06/27/22 09:05 Hematocrit 41.3 % (37-47) 06/27/22 09:05 Hgb O2 Saturation 87.9 % (95-100) L 06/27/22 09:05 Carboxyhemoglobin 0.9 %THgb (0.4-20.1) 06/27/22 09:05 Methemoglobin 0.5 % (0.4-1.5) 06/27/22 09:05 Total Hemoglobin 13.5 g/dL (12-16) 06/27/22 09:05 Sodium 140.0 mmol/L (131-143) 06/27/22 09:05 Potassium 3.7 mmol/L (3.5-5.0) 06/27/22 09:05 Glucose 184.0 mg/dL (70-115) H 06/27/22 09:05 Ionized Calcium 1.2 mmol/L (1.1-1.4) 06/27/22 09:05 O2 Delivery Device Room air 06/27/22 09:05 FiO2 21.0 % 06/27/22 09:05 Conference Specialist ID [place] 06/27/22 09:05 Sodium 141 mmol/L (136-145) 06/27/22 09:18 Potassium 4.0 mmol/L (3.5-5.1) 06/27/22 09:18 Chloride 99 mmol/L (98-107) 06/27/22 09:18 Carbon Dioxide 31 mmol/L (22-29) H 06/27/22 09:18 Anion Gap 15.0 (5-19) 06/27/22 09:18 BUN 19 mg/dL (8-23) 06/27/22 09:18 Creatinine 0.5 mg/dL (0.5-0.9) 06/27/22 09:18 GFR Calculation Not Reportable 06/27/22 09:18 Glucose 172 mg/dL (65-115) H 06/27/22 09:18 Calculated Osmolality 298 mOsm/kg (285-295) H 06/27/22 09:18 Calcium 9.7 mg/dL (8.5-10.5) 06/27/22 09:18 Total Bilirubin 0.5 mg/dL (0.15-1.2) 06/27/22 09:18 AST 16 U/L (0-32) 06/27/22 09:18 ALT 11 U/L (0-33) 06/27/22 09:18 Alkaline Phosphatase 70 U/L (35-105) 06/27/22 09:18 Total Protein 6.7 g/dL (6.6-8.7) 06/27/22 09:18 Albumin 4.2 g/dL (3.5-5.2) 06/27/22 09:18 Globulin 2.5 g/dL (1.3-4.6) 06/27/22 09:18 Discharge Plan Discharge Patient Disposition: Home Clinical Impression: Acute exacerbation of chronic obstructive airways disease Condition: Stable Prescriptions: New doxycycline hyclate 100 mg capsule 100 mg PO BID 10 Days Qty: 20 0RF prednisone 20 mg tablet 20 mg PO TID Qty: 15 0RF Rx Instructions: 1 p.o. 3 times daily x3 days, 1 p.o. twice daily x2 days, 1 p.o. daily x2 days Discontinued prednisone 10 mg tablet 10 mg PO DIRECTED Qty: 53 0RF Rx Instructions: Take 4 tabs for 5 days, 3 tabs for 5 days, 2 tabs for 5 days, 1 tab for 5 days, 0.5 tab for 5 days prednisone 50 mg tablet 50 mg PO DAILY Qty: 5 0RF No Action albuterol sulfate [Ventolin HFA] 90 mcg/actuation HFA aerosol inhaler 1 - 2 puff INHALATION Q4H PRN (Reason: Shortness Of Breath) hydrocodone-acetaminophen 10-325 mg Tablet 1 - 2 tab PO QID PRN (Reason: Pain) levothyroxine 125 mcg Tablet 125 mcg PO QAM aspirin 81 mg Tablet,Delayed Release (Dr/Ec) 81 mg PO BEDTIME ascorbic acid (vitamin C) [Vitamin C] 500 mg Tablet 500 mg PO DAILY ipratropium-albuterol 0.5 mg-3 mg(2.5 mg base)/3 mL solution for nebulization 3 ml inhalation Q6H PRN (Reason: shortness of breath or wheezing) Qty: 180 0RF Rx Instructions: until breathing returns to target peak flow/parameters Discharge Orders: Discharge ED (Routine); Ordered 06/27/22 Ordered By: Alex Romero Referrals: Carson Murray DO [Primary Care Provider] - Discharge Diet: Usual diet Discharge Activity: Resume usual activity Patient Instructions: Opioid Safety, Pain Management Activity Restrictions/Additional Instructions: You are seen today for exacerbation of COPD continue to use albuterol ipratropium nebs every 4 hours as needed while awake. You should take the steroid taper prescribed today beginning tomorrow. Hold your other oral steroids until just steroid taper is complete. Additionally start doxycycline 100 mg 1 p.o. twice daily. Coding Level of Care Code ED Professor In Family Studies for Ji Melgar
[2022-06-27 09:17] LABS: ABG PCO2 44.7 mmHg (35-45); ABG PH Result 7.47 (7.35-7.45); Alveolar-Arterial Oxygen Gradi 6.3 mmHg (5-10); Arterial Blood Gas Hematocrit 41.3 % (37-47); Base Excess ABG 7.4 mmol/L (-2.0-2.0); Blood Gas Allen Test Pos; Blood Gas Operator Identificat MONRO; Blood Gas Sample Site Brachial, right; Blood Gas Sample Type Arterial; Carboxyhemoglobin 0.9 %THgb (0.4-20.1); HCO3 ABG 32.2 mmol/L (22-26); HGB O2 Sat 87.9 % (95-100); Ionized Calcium Level - ABG 1.2 mmol/L (1.1-1.4); Methemoglobin 0.5 % (0.4-1.5); Oxygen Device ROOM AIR; Oxygen Saturation ABG 89.2; PO2 ABG 48.8 mmHg (80.0-100.0); Potassium Level - ABG 3.7 mmol/L (3.5-5.0); Total Hemoglobin 13.5 g/dL (12-16)
[2022-06-27 09:32] LABS: Hematocrit 42.6 % (37.0-47.0); Hemoglobin 13.7 g/dL (11.5-15.3); Lymphocytes # 0.6 10^3/uL (0.8-4.8); Lymphocytes % 5.1 %; Mean Corpuscular HGB Conc 32.2 g/dL (30.0-36.0); Mean Corpuscular Hemoglobin 31.6 pg (28.0-34.0); Mean Corpuscular Volume 98.2 fl (81-99); Mean Platelet Volume 10.5 fL (7.4-10.4); Monocytes % 0.4 %; Neutrophils # 10.23 10^3/uL (1.8-7.7); Nucleated Red Blood Cells % 0 %; Platelet Count 360 10^3/cmm (130-400); Red Blood Count 4.34 10^6/uL (4.1-5.3); Red Cell Distribution Width 13.6 % (12.1-15.1); White Blood Count 10.9 10^3/uL (4.0-10.0)
[2022-06-27 09:57] LABS: Alanine Aminotransferase 11 U/L (0-33); Albumin Level 4.2 g/dL (3.5-5.2); Alkaline Phosphatase 70 U/L (35-105); Aspartate Amino Transferase 16 U/L (0-32); Blood Urea Nitrogen 19 mg/dL (8-23); Calcium 9.7 mg/dL (8.5-10.5); Carbon Dioxide 31 mmol/L (22-29); Chloride 99 mmol/L (98-107); Creatinine Clr Calc Pharmacy 57.1281; Globulin 2.5 g/dL (1.3-4.6); Glucose 172 mg/dL (65-115); Osmolality Calculated 298 mOsm/kg (285-295); Sodium 141 mmol/L (136-145); Total Bilirubin 0.5 mg/dL (0.15-1.2); Total Protein 6.7 g/dL (6.6-8.7)
[2022-06-27] MEDS: ipratropium-albuterol 3 mL Neb INHALATION (10:17)
== END 2022-06-27 12:10 | disposition home or self-care (01) ==
PROVIDERS: Emergency Provider Family Medicine; PCP Family Medicine
DX: J44.1 Chronic obstructive pulmonary disease with (acute) exacerbation (principal); Z79.82 Long term (current) use of aspirin; Z87.891 Personal history of nicotine dependence
CPT/HCPCS: 36415; 36600; 71045; 80051; 80053; 82330; 82805; 85025; 93005; 94640; 99285

== ENCOUNTER 2022-07-05 03:36 | Emergency (ER) | payer MEDICARE, SELFPAY ==
[2022-07-05 03:38] VITALS: BP 147/67; PULSE 78; RESP 22; TEMP 36.4; O2SAT 100; BMI 24.7
--- NOTE | 2022-07-05 03:40 | CTR_ITS ---
PROCEDURE INFORMATION: Exam: CT Head Without Contrast Exam date and time: 07/05/2022 4:15 AM Age: 72 years old Clinical indication: Injury or trauma; Fall; Blunt trauma (contusions or hematomas); Consciousness not specified TECHNIQUE: Imaging protocol: Computed tomography of the head without contrast. Radiation optimization: All CT scans at this facility use at least one of these dose optimization techniques: automated exposure control; mA and/or kV adjustment per patient size (includes targeted exams where dose is matched to clinical indication); or iterative reconstruction. REPORTING DATA: Count of CT and Cardiac NM exams in prior 12 months: This patient has received 0 known CTs and 0 known cardiac nuclear medicine studies in the 12 months prior to the current study. COMPARISON: CT cervical spin wo con* [id number] 04/15/2019 8:58 AM RADIATION DOSE METRICS: Total DLP (mGy-cm): 1197.1 FINDINGS: Brain: Prominence of the sulci consistent with diffuse atrophy. No mass effect or midline shift. Periventricular and subcortical white matter low-attenuation consistent with chronic small vessel ischemic changes. No evidence of acute intracranial hemorrhage. Cerebral ventricles: Ventricular prominence proportional to sulci. No hydrocephalus. Paranasal sinuses: No significant or acute abnormality. No air-fluid levels. Mastoid air cells: No acute abnormality. No significant mastoid effusion. Bones/joints: No acute osseous abnormality. No acute fracture. Soft tissues: No significant soft tissue abnormalities. CT/CT head wo con* [id number] IMPRESSION: Diffuse atrophy and chronic/remote ischemic changes without evidence of superimposed acute infarct, hemorrhage, mass-effect or acute intracranial injury.
--- NOTE | 2022-07-05 03:40 | ECG_ITS ---
[facility] Test Date: 2022-07-05 Pat Name: Socorro Montes De Oca Department: Room: Gender: Female Dry Color Mixer: : 1950 Requested By: Harshad Gardner Order Number: [id number] Octavio MD: Murray Abreu M.D. Measurements Intervals [place] Rate: 70 P: 84 WV: 139 QRS: 78 QRSD: 92 T: 84 QT: 417 QTc: 451 Interpretive Statements SINUS RHYTHM INCOMPLETE RIGHT BUNDLE BRANCH BLOCK [90+ ms QRS DURATION, TERMINAL R IN V1/V2, 40+ ms S IN I/aVL/V4/V5/V6] Compared to ECG 06/27/2022 09:04:17 Incomplete right bundle-branch block now present Sinus tachycardia no longer present Short [place] interval no longer present T-wave abnormality no longer present Possible ischemia no longer present Electronically Signed On 07-05-2022 14:45:58 CDT by Murray Abreu M.D. [id number]
--- NOTE | 2022-07-05 03:41 | XRR_ITS ---
PROCEDURE INFORMATION: Exam: XR Chest Exam date and time: 07/05/2022 4:03 AM Age: 72 years old Clinical indication: Shortness of breath; Additional info: SOB TECHNIQUE: Imaging protocol: Radiologic exam of the chest. Views: 1 view. COMPARISON: CR (CHEST, ) 06/26/2022 9:24 PM FINDINGS: Lungs: No significant or acute findings. No consolidation. Pleural spaces: No significant costophrenic angle blunting. No pneumothorax. Heart/Mediastinum: Heart size is normal. Bones/joints: No acute osseous abnormality. XR/XR chest 1V portable [id number] IMPRESSION: No acute abnormality demonstrated.
--- NOTE | 2022-07-05 03:42 | ED_ITS ---
HPI - SOB/Dyspnea General: Chief Complaint: Shortness of Breath/Dyspnea Stated Complaint: respiratory distress Time Seen by Provider: 07/05/22 03:40 Source: patient and EMS Mode of arrival: EMS Limitations: no limitations History of Present Illness: HPI Narrative: 72-year-old female has a history of COPD she has been seen here multiple times in the past she also gets anxious and has anxiety attacks states that she had fell and her oxygen concentrator hit her in the head roughly 30 minutes ago she does have a headache she denies any loss conscious states started having severe shortness of breath she is currently on 100% on her 6 L that she wears at home she states she was quite anxious after the fall. She denies any pain denies any fevers. Associated symptoms: Deny abdominal pain, chest pain, fever(s), nausea or vomiting Review of Systems Const: Denies: fever(s), chills or body aches Eyes: Denies: blurry vision or eye discomfort ENMT: Denies: throat pain or dental pain Card: Denies: chest pain Resp: Reports: dyspnea GI: Denies: abdominal pain, nausea, vomiting or diarrhea Musc: Denies: neck pain or back pain Skin/Breast: Denies: rash Neuro: Reports: headache(s) Psych: Denies: depression PFSH ED PFSH: Medical History Chronic respiratory failure with hypoxia COPD (chronic obstructive pulmonary disease) Panic anxiety syndrome Surgical History History of appendectomy History of cholecystectomy History of hysterectomy Hx of tonsillectomy Social History Smoking and tobacco status: former smoker Quit status (tobacco): has quit using tobacco Year quit tobacco: 2014 - 1PPD x 40 Years Alcohol intake: never Lives independently: Yes Household members: none Current occupational status: disabled Pets and animals: Yes Pets & animals: dog(s) Current gender identity: Female Physical Exam Const: COMMON NORMALS: no acute distress, patient oriented x3 and healthy appearing HENMT: COMMON NORMALS: normocephalic HEAD & SCALP: normocephalic OTHER: abrasion to forehead Eye: COMMON NORMALS: conjunctivae normal CONJUNCTIVA: Yes conjunctivae normal Neck/C-Spine: COMMON NORMALS: full ROM and supple Chest: COMMONS NORMALS: normal inspection of the chest and normal palpation of entire chest wall Resp: COMMON NORMALS: normal respiratory effort, No retractions, No use of accessory muscles and clear to auscultation bilaterally AUSCULTATION: clear to auscultation bilaterally Cardio: COMMON NORMALS: regular rate, regular rhythm and No murmurs present (Cardio) RATE: regular rate RHYTHM: regular rhythm GI: COMMON NORMALS: Normal to inspection, nondistended, normoactive bowel sounds present, Soft to palpation, non-tender and no masses PALPATION: Yes Soft to palpation Extremity: COMMON NORMALS: normal to inspection and full ROM Neuro: COMMON NORMALS: patient oriented x3, moves all extremities and no focal motor deficits Psych: COMMON NORMALS: mental status grossly normal, Normal thought process present and cooperative THOUGHT PROCESS: Normal thought process present Skin: COMMON NORMALS: no rashes or lesions noted and no wounds GENERAL SKIN EXAM: no rashes or lesions noted Course Vital Signs: Vital signs: Vital Signs Temperature 97.6 F 07/05/22 03:38 Pulse Rate 97 07/05/22 07:36 Respiratory Rate 18 07/05/22 05:30 Blood Pressure 181/87 07/05/22 07:36 Pulse Oximetry 100 07/05/22 07:36 Oxygen Delivery Me thod Nasal Cannula 07/05/22 04:39 Oxygen Flow Rate 6 07/05/22 04:39 MDM - SOB/Dyspnea Medical Decision Making Patient presents here with COPD along with anxiety likely she had an anxiety re action after she fell her head CT here normal no signs of C-spine injury she is at her baseline here on 6 L she is awake and alert able answer all my questions appropriately she is stable for discharge is follow-up with PCP and return if worsening. Lab Data 07/05/22 03:45 07/05/22 03:45 Labs/Radiology: Radiology Impressions Head CT 07/05/22 03:40 IMPRESSION: Diffuse atrophy and chronic/remote ischemic changes without evidence of superimposed acute infarct, hemorrhage, mass-effect or acute intracranial injury. Chest X-Ray 07/05/22 03:41 IMPRESSION: No acute abnormality demonstrated. Laboratory Results WBC 11.8 10^3/uL (4.0-10.0) H 07/05/22 03:45 RBC 3.48 10^6/uL (4.1-5.3) L 07/05/22 03:45 Hgb 11.0 g/dL (11.5-15.3) L 07/05/22 03:45 Hct 35.6 % (37.0-47.0) L 07/05/22 03:45 MCV 102.3 fl (81-99) H 07/05/22 03:45 MCH 31.6 pg (28.0-34.0) 07/05/22 03:45 MCHC 30.9 g/dL (30.0-36.0) 07/05/22 03:45 RDW 13.5 % (12.1-15.1) 07/05/22 03:45 Plt Count 281 10^3/cmm (130-400) 07/05/22 03:45 MPV 10.4 fL (7.4-10.4) 07/05/22 03:45 Neut % (Auto) 84.5 % 07/05/22 03:45 Lymph % (Auto) 7.1 % 07/05/22 03:45 [place] % (Auto) 5.9 % 07/05/22 03:45 Eos % (Auto) 1.7 % 07/05/22 03:45 Baso % (Auto) 0.4 % 07/05/22 03:45 Neut # (Auto) 9.95 10^3/uL (1.8-7.7) H 07/05/22 03:45 Lymph # (Auto) 0.8 10^3/uL (0.8-4.8) 07/05/22 03:45 [place] # (Auto) 0.7 10^3/uL (0.2-0.9) 07/05/22 03:45 Eos # (Auto) 0.2 10^3/uL (0.0-0.8) 07/05/22 03:45 Baso # (Auto) 0.1 10^3/uL (0.0-0.1) 07/05/22 03:45 Nucleated RBC % (auto) 0 % 07/05/22 03:45 Nucleated RBCs # 0.0 /100WBC 07/05/22 03:45 Sodium 138 mmol/L (136-145) 07/05/22 03:45 Potassium 4.4 mmol/L (3.5-5.1) 07/05/22 03:45 Chloride 96 mmol/L (98-107) L 07/05/22 03:45 Carbon Dioxide 31 mmol/L (22-29) H 07/05/22 03:45 Anion Gap 15.4 (5-19) 07/05/22 03:45 BUN 16 mg/dL (8-23) 07/05/22 03:45 Creatinine 0.5 mg/dL (0.5-0.9) 07/05/22 03:45 GFR Calculation Not Reportable 07/05/22 03:45 Glucose 125 mg/dL (65-115) H 07/05/22 03:45 Calculated Osmolality 289 mOsm/kg (285-295) 07/05/22 03:45 Calcium 9.1 mg/dL (8.5-10.5) 07/05/22 03:45 Total Bilirubin 0.7 mg/dL (0.15-1.2) 07/05/22 03:45 AST 25 U/L (0-32) 07/05/22 03:45 ALT 17 U/L (0-33) 07/05/22 03:45 Alkaline Phosphatase 81 U/L (35-105) 07/05/22 03:45 Total Protein 6.8 g/dL (6.6-8.7) 07/05/22 03:45 Albumin 4.0 g/dL (3.5-5.2) 07/05/22 03:45 Globulin 2.8 g/dL (1.3-4.6) 07/05/22 03:45 EKG Data EKG 1: I personally reviewed and interpreted this EKG as follows: EKG Interpretation Date: 07/05/22 EKG interpretation time: 03:55 Interpretation: nsr hr [address] or t wave abnormalities qrs 92 qtc 438 Discharge Plan Discharge Patient Disposition: Home Clinical Impression: COPD (chronic obstructive pulmonary disease), Fall, CHI (closed head injury) Condition: Stable Prescriptions: No Action albuterol sulfate [Ventolin HFA] 90 mcg/actuation HFA aerosol inhaler 1 - 2 puff INHALATION Q4H PRN (Reason: Shortness Of Breath) hydrocodone-acetaminophen 10-325 mg Tablet 1 - 2 tab PO QID PRN (Reason: Pain) levothyroxine 125 mcg Tablet 125 mcg PO QAM aspirin 81 mg Tablet,Delayed Release (Dr/Ec) 81 mg PO BEDTIME ascorbic acid (vitamin C) [Vitamin C] 500 mg Tablet 500 mg PO DAILY ipratropium-albuterol 0.5 mg-3 mg(2.5 mg base)/3 mL solution for nebulization 3 ml inhalation Q6H PRN (Reason: shortness of breath or wheezing) Qty: 180 0RF Rx Instructions: until breathing returns to target peak flow/parameters doxycycline hyclate 100 mg capsule 100 mg PO BID 10 Days Qty: 20 0RF prednisone 20 mg tablet 20 mg PO TID Qty: 15 0RF Rx Instructions: 1 p.o. 3 times daily x3 days, 1 p.o. twice daily x2 days, 1 p.o. daily x2 days Discharge Orders: Discharge ED (Routine); Ordered 07/05/22 Ordered By: Harshad Gardner Referrals: Carson Murray DO [Primary Care Provider] - 1-3 days Discharge Diet: Advance as tolerated Discharge Activity: Resume usual activity Patient Instructions: Head Injury (ED), COPD (Chronic Obstructive Pulmonary Disease) (ED) Coding Level of Care Code ED Mash Filter Press Operator for Ji Melgar
[2022-07-05 04:00] LABS: Basophils # 0.1 10^3/uL (0.0-0.1); Basophils % 0.4 %; Eosinophils # 0.2 10^3/uL (0.0-0.8); Eosinophils % 1.7 %; Hematocrit 35.6 % (37.0-47.0); Lymphocytes # 0.8 10^3/uL (0.8-4.8); Lymphocytes % 7.1 %; Mean Corpuscular HGB Conc 30.9 g/dL (30.0-36.0); Mean Corpuscular Hemoglobin 31.6 pg (28.0-34.0); Mean Corpuscular Volume 102.3 fl (81-99); Mean Platelet Volume 10.4 fL (7.4-10.4); Monocytes # 0.7 10^3/uL (0.2-0.9); Monocytes % 5.9 %; Neutrophils # 9.95 10^3/uL (1.8-7.7); Neutrophils % 84.5 %; Nucleated Red Blood Cells % 0 %; Platelet Count 281 10^3/cmm (130-400); Red Blood Count 3.48 10^6/uL (4.1-5.3); Red Cell Distribution Width 13.5 % (12.1-15.1); White Blood Count 11.8 10^3/uL (4.0-10.0)
[2022-07-05 04:03] VITALS: BP 131/57; PULSE 72; RESP 20; O2SAT 99
[2022-07-05 04:39] VITALS: BP 140/58; PULSE 69; O2SAT 100
[2022-07-05 04:49] LABS: Alanine Aminotransferase 17 U/L (0-33); Alkaline Phosphatase 81 U/L (35-105); Anion Gap 15.4 (5-19); Aspartate Amino Transferase 25 U/L (0-32); Blood Urea Nitrogen 16 mg/dL (8-23); Calcium 9.1 mg/dL (8.5-10.5); Carbon Dioxide 31 mmol/L (22-29); Chloride 96 mmol/L (98-107); Globulin 2.8 g/dL (1.3-4.6); Glucose 125 mg/dL (65-115); Osmolality Calculated 289 mOsm/kg (285-295); Potassium 4.4 mmol/L (3.5-5.1); Sodium 138 mmol/L (136-145); Total Bilirubin 0.7 mg/dL (0.15-1.2); Total Protein 6.8 g/dL (6.6-8.7)
[2022-07-05 05:30] VITALS: BP 149/65; PULSE 78; RESP 18; O2SAT 100
[2022-07-05 07:36] VITALS: BP 181/87; PULSE 97; O2SAT 100
== END 2022-07-05 07:37 | disposition home or self-care (01) ==
PROVIDERS: Emergency Provider Emergency Medicine; PCP Family Medicine
DX: J44.9 Chronic obstructive pulmonary disease, unspecified (principal); S09.8XXA Other specified injuries of head, initial encounter; Z79.82 Long term (current) use of aspirin; S00.81XA Abrasion of other part of head, initial encounter; Z87.891 Personal history of nicotine dependence; Z99.81 Dependence on supplemental oxygen; W18.30XA Fall on same level, unspecified, initial encounter
CPT/HCPCS: 70450; 71045; 80053; 85025; 93005; 99285

== ENCOUNTER 2022-07-14 04:34 | Emergency (ER) | payer MEDICARE, SELFPAY ==
[2022-07-14 04:36] VITALS: BP 159/83; PULSE 103; RESP 16; TEMP 36.4; O2SAT 100; BMI 27.3
--- NOTE | 2022-07-14 04:38 | XRR_ITS ---
PROCEDURE INFORMATION: Exam: XR Chest Exam date and time: 07/14/2022 4:47 AM Age: 72 years old Clinical indication: Shortness of breath; Patient HX: C/O SOB. History of copd. TECHNIQUE: Imaging protocol: Radiologic exam of the chest. Views: 1 view. COMPARISON: CR (CHEST, ) 07/05/2022 4:03 AM FINDINGS: Lungs: Subtle strandy opacities are seen in the left lung base most probably representing atelectasis although basilar infiltrate and pneumonia cannot be entirely excluded. Pleural spaces: Unremarkable. No pleural effusion. No pneumothorax. Heart/Mediastinum: Unremarkable. No cardiomegaly. Bones/joints: Unremarkable. XR/XR chest 1V portable [id number] IMPRESSION: 1. Strandy opacities in left lung base likely represents atelectasis although left basilar pneumonia cannot be excluded in the appropriate clinical setting.
--- NOTE | 2022-07-14 04:39 | W.ED.SOB ---
HPI - SOB/Dyspnea General: Chief Complaint: Shortness of Breath/Dyspnea Stated Complaint: COPD Time Seen by Provider: 07/14/22 04:38 Source: patient and EMS Mode of arrival: EMS Limitations: no limitations History of Present Illness: HPI Narrative: 72-year-old female has a long history of COPD she also has anxiety attack she has been seen multiple times for this. States she woke up this morning feeling extremely anxious and felt like she could not breathe. She states she feels much improved now she is on 6 L at baseline she is in no distress here. She denies any dyspnea currently she denies any chest pain denies any cough or fever. Associated symptoms: Deny abdominal pain, chest pain, fever(s), nausea or vomiting Review of Systems Const: Denies: fever(s), chills or body aches Eyes: Denies: eye discomfort ENMT: Denies: throat pain or dental pain Card: Denies: chest pain Resp: Reports: dyspnea; Denies: non-productive cough GI: Denies: abdominal pain, nausea, vomiting or diarrhea Musc: Denies: neck pain or back pain Skin/Breast: Denies: rash Neuro: Denies: headache(s) All/Imm: Denies: urticaria PFSH ED PFSH: Medical History Chronic respiratory failure with hypoxia COPD (chronic obstructive pulmonary disease) Panic anxiety syndrome Surgical History History of appendectomy History of cholecystectomy History of hysterectomy Hx of tonsillectomy Social History Smoking and tobacco status: former smoker Quit status (tobacco): has quit using tobacco Year quit tobacco: 2015 - 1PPD x 40 Years Alcohol intake: never Substance/Drug Use: never Lives independently: Yes Household members: none Current occupational status: disabled Pets and animals: Yes Pets & animals: dog(s) Do you think of yourself as: Straight/Heterosexual Current gender identity: Female Physical Exam Const: COMMON NORMALS: no acute distress, patient oriented x3 and healthy appearing HENMT: COMMON NORMALS: normocephalic and atraumatic HEAD & SCALP: normocephalic and atraumatic Eye: COMMON NORMALS: conjunctivae normal CONJUNCTIVA: Yes conjunctivae normal Neck/C-Spine: COMMON NORMALS: full ROM and supple Chest: COMMONS NORMALS: normal inspection of the chest and normal palpation of entire chest wall Resp: COMMON NORMALS: normal respiratory effort, No retractions, No use of accessory muscles and clear to auscultation bilaterally AUSCULTATION: clear to auscultation bilaterally Cardio: COMMON NORMALS: regular rate, regular rhythm and No murmurs present (Cardio) RATE: regular rate RHYTHM: regular rhythm GI: COMMON NORMALS: Normal to inspection, nondistended, normoactive bowel sounds present, Soft to palpation, non-tender and no masses PALPATION: Yes Soft to palpation Extremity: COMMON NORMALS: normal to inspection and full ROM Neuro: COMMON NORMALS: patient oriented x3, moves all extremities and no focal motor deficits Psych: COMMON NORMALS: mental status grossly normal, Normal thought process present and cooperative THOUGHT PROCESS: Normal thought process present Skin: COMMON NORMALS: no rashes or lesions noted and no wounds GENERAL SKIN EXAM: no rashes or lesions noted Course Vital Signs: Vital signs: Vital Signs Temperature 97.6 F 07/14/22 05:37 Pulse Rate 96 07/14/22 05:37 Respiratory Rate 20 H 07/14/22 05:37 Blood Pressure 142/75 07/14/22 05:37 Pulse Oximetry 98 07/14/22 05:37 Oxygen Delivery Me thod Nasal Cannula 07/14/22 05:11 Oxygen Flow Rate 6 07/14/22 05:11 MDM - SOB/Dyspnea Medical Decision Making Patient presents here with shortness of breath likely from anxiety attack when she woke up she is here at her baseline talking full sentences is 90% on her 6 L x-ray and blood works normal he has no signs of pneumonia she is stable for discharge she is to follow-up with PCP and return if worsening. Lab Data 07/14/22 04:45 07/14/22 04:45 Labs/Radiology: Radiology Impressions Chest X-Ray 07/14/22 04:38 IMPRESSION: 1. Strandy opacities in left lung base likely represents atelectasis although left basilar pneumonia cannot be excluded in the appropriate clinical setting. Laboratory Results WBC 7.9 10^3/uL (4.0-10.0) 07/14/22 04:45 RBC 4.85 10^6/uL (4.1-5.3) 07/14/22 04:45 Hgb 14.9 g/dL (11.5-15.3) 07/14/22 04:45 Hct 46.9 % (37.0-47.0) 07/14/22 04:45 MCV 96.7 fl (81-99) 07/14/22 04:45 MCH 30.7 pg (28.0-34.0) 07/14/22 04:45 MCHC 31.8 g/dL (30.0-36.0) 07/14/22 04:45 RDW 13.5 % (12.1-15.1) 07/14/22 04:45 Plt Count 417 10^3/cmm (130-400) H 07/14/22 04:45 MPV 10.3 fL (7.4-10.4) 07/14/22 04:45 Neut % (Auto) 57.2 % 07/14/22 04:45 Lymph % (Auto) 23.0 % 07/14/22 04:45 Schuyler % (Auto) 11.8 % 07/14/22 04:45 Eos % (Auto) 6.6 % 07/14/22 04:45 Baso % (Auto) 0.9 % 07/14/22 04:45 Neut # (Auto) 4.52 10^3/uL (1.8-7.7) 07/14/22 04:45 Lymph # (Auto) 1.8 10^3/uL (0.8-4.8) 07/14/22 04:45 Schuyler # (Auto) 0.9 10^3/uL (0.2-0.9) 07/14/22 04:45 Eos # (Auto) 0.5 10^3/uL (0.0-0.8) 07/14/22 04:45 Baso # (Auto) 0.1 10^3/uL (0.0-0.1) 07/14/22 04:45 Nucleated RBC % (auto) 0 % 07/14/22 04:45 Nucleated RBCs # 0.0 /100WBC 07/14/22 04:45 Sodium 139 mmol/L (136-145) 07/14/22 04:45 Potassium 3.8 mmol/L (3.5-5.1) 07/14/22 04:45 Chloride 95 mmol/L (98-107) L 07/14/22 04:45 Carbon Dioxide 32 mmol/L (22-29) H 07/14/22 04:45 Anion Gap 15.8 (5-19) 07/14/22 04:45 BUN 17 mg/dL (8-23) 07/14/22 04:45 Creatinine 0.6 mg/dL (0.5-0.9) 07/14/22 04:45 GFR Calculation Not Reportable 07/14/22 04:45 Glucose 125 mg/dL (65-115) H 07/14/22 04:45 Calculated Osmolality 291 mOsm/kg (285-295) 07/14/22 04:45 Calcium 10.4 mg/dL (8.5-10.5) 07/14/22 04:45 Discharge Plan Discharge Patient Disposition: Home Clinical Impression: Acute exacerbation of chronic obstructive airways disease, Anxiety disorder Condition: Stable Prescriptions: No Action albuterol sulfate [Ventolin HFA] 90 mcg/actuation HFA aerosol inhaler 1 - 2 puff INHALATION Q4H PRN (Reason: Shortness Of Breath) hydrocodone-acetaminophen 10-325 mg Tablet 1 - 2 tab PO QID PRN (Reason: Pain) levothyroxine 125 mcg Tablet 125 mcg PO QAM aspirin 81 mg Tablet,Delayed Release (Dr/Ec) 81 mg PO BEDTIME ascorbic acid (vitamin C) [Vitamin C] 500 mg Tablet 500 mg PO DAILY ipratropium-albuterol 0.5 mg-3 mg(2.5 mg base)/3 mL solution for nebulization 3 ml inhalation Q6H PRN (Reason: shortness of breath or wheezing) Qty: 180 0RF Rx Instructions: until breathing returns to target peak flow/parameters prednisone 20 mg tablet 20 mg PO TID Qty: 15 0RF Rx Instructions: 1 p.o. 3 times daily x3 days, 1 p.o. twice daily x2 days, 1 p.o. daily x2 days Discharge Orders: Discharge ED (Routine); Ordered 07/14/22 Ordered By: Harshad Gardner Referrals: Carson Murray DO [Staff Physician] - 1-3 days Discharge Diet: Advance as tolerated Discharge Activity: Resume usual activity Patient Instructions: Dyspnea (ED) Coding Level of Care Code ED Compliance Quality Performance Analyst for Ji Melgar
--- NOTE | 2022-07-14 04:43 | ECG_ITS ---
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 Measurements Intervals [place] Rate: 75 P: 78 NE: 128 QRS: 59 QRSD: 78 T: 76 QT: 364 QTc: 408 Interpretive Statements SINUS RHYTHM POSSIBLE RIGHT VENTRICULAR CONDUCTION DELAY [RSR (QR) IN V1/V2] Compared to ECG 07/05/2022 03:55:30 Incomplete right bundle-branch block no longer present Electronically Signed On 07-15-2022 16:30:46 CDT by Giorgi Justin M.D. [id number]
[2022-07-14 04:44] VITALS: BP 159/83; PULSE 101; RESP 16; O2SAT 99
[2022-07-14 04:46] VITALS: PULSE 97; RESP 18; O2SAT 100
[2022-07-14] MEDS: albuterol 2.5 mg/3 mL Neb INHALATION (04:46)
[2022-07-14 04:50] VITALS: PULSE 99; RESP 19; O2SAT 100
[2022-07-14 04:52] LABS: Basophils # 0.1 10^3/uL (0.0-0.1); Basophils % 0.9 %; Eosinophils # 0.5 10^3/uL (0.0-0.8); Eosinophils % 6.6 %; Hematocrit 46.9 % (37.0-47.0); Hemoglobin 14.9 g/dL (11.5-15.3); Lymphocytes # 1.8 10^3/uL (0.8-4.8); Mean Corpuscular HGB Conc 31.8 g/dL (30.0-36.0); Mean Corpuscular Hemoglobin 30.7 pg (28.0-34.0); Mean Corpuscular Volume 96.7 fl (81-99); Mean Platelet Volume 10.3 fL (7.4-10.4); Monocytes # 0.9 10^3/uL (0.2-0.9); Monocytes % 11.8 %; Neutrophils # 4.52 10^3/uL (1.8-7.7); Neutrophils % 57.2 %; Nucleated Red Blood Cells % 0 %; Platelet Count 417 10^3/cmm (130-400); Red Blood Count 4.85 10^6/uL (4.1-5.3); Red Cell Distribution Width 13.5 % (12.1-15.1); White Blood Count 7.9 10^3/uL (4.0-10.0)
[2022-07-14 05:11] VITALS: BP 136/82; PULSE 101; RESP 16; O2SAT 100
[2022-07-14 05:15] LABS: Anion Gap 15.8 (5-19); Blood Urea Nitrogen 17 mg/dL (8-23); Calcium 10.4 mg/dL (8.5-10.5); Carbon Dioxide 32 mmol/L (22-29); Chloride 95 mmol/L (98-107); Creatinine Clr Calc Pharmacy 51.3288; Glucose 125 mg/dL (65-115); Osmolality Calculated 291 mOsm/kg (285-295); Potassium 3.8 mmol/L (3.5-5.1); Sodium 139 mmol/L (136-145)
[2022-07-14 05:37] VITALS: BP 142/75; PULSE 96; RESP 20; TEMP 36.4; O2SAT 98
== END 2022-07-14 05:39 | disposition home or self-care (01) ==
PROVIDERS: Emergency Provider Emergency Medicine; PCP Family Medicine
DX: J44.1 Chronic obstructive pulmonary disease with (acute) exacerbation (principal); F41.9 Anxiety disorder, unspecified
CPT/HCPCS: 36600; 71045; 80048; 82803; 85025; 93005; 94640; 99285; J7613

== ENCOUNTER 2022-07-14 18:34 | Emergency (ER) | payer MEDICARE, SELFPAY ==
--- NOTE | 2022-07-14 18:40 | XRR_ITS ---
PROCEDURE INFORMATION: Exam: XR Chest Exam date and time: 07/14/2022 6:53 PM Age: 72 years old Clinical indication: Shortness of breath; Additional info: SOB TECHNIQUE: Imaging protocol: Radiologic exam of the chest. Views: 1 view. COMPARISON: CR (CHEST, ) 07/14/2022 4:47 AM FINDINGS: Lungs: Left basilar opacities suggested previously are less conspicuous. No new abnormalities. Pleural spaces: Unremarkable. No pleural effusion. No pneumothorax. Heart/Mediastinum: Unremarkable. No cardiomegaly. Bones/joints: No acute findings. XR/XR chest 1V portable [id number] IMPRESSION: Decrease in left basilar opacities
--- NOTE | 2022-07-14 18:45 | ED_ITS ---
HPI - SOB/Dyspnea General: Chief Complaint: Shortness of Breath/Dyspnea Stated Complaint: SOB/Anxiety Time Seen by Provider: 07/14/22 18:39 Source: patient Mode of arrival: ambulatory Limitations: no limitations History of Present Illness: HPI Narrative: 72-year-old female who has a history of COPD along with anxiety she has been seen here multiple times including this morning she states that she is out of her Klonopin does not get it filled till tomorrow and been having extreme anxiety throughout the day making her feel like she cannot breathe. Patient is on 6 L at baseline she is currently 99% on that 6 L no cough no fever no pain Associated symptoms: Deny abdominal pain, chest pain, fever(s), nausea or vomiting Review of Systems Const: Denies: fever(s), chills, body aches or change in appetite ENMT: Denies: throat pain or dental pain Card: Denies: chest pain Resp: Reports: dyspnea GI: Denies: abdominal pain, nausea, vomiting or diarrhea : Denies: dysuria Musc: Denies: neck pain or back pain Skin/Breast: Denies: rash Neuro: Denies: headache(s) Psych: Reports: panic attacks; Denies: depression PFSH ED PFSH: Medical History Chronic respiratory failure with hypoxia COPD (chronic obstructive pulmonary disease) Panic anxiety syndrome Surgical History History of appendectomy History of cholecystectomy History of hysterectomy Hx of tonsillectomy Social History Smoking and tobacco status: former smoker Quit status (tobacco): has quit using tobacco Year quit tobacco: 2014 - 1PPD x 40 Years Alcohol intake: never Substance/Drug Use: never Lives independently: Yes Household members: none Current occupational status: disabled Pets and animals: Yes Pets & animals: dog(s) Do you think of yourself as: Straight/Heterosexual Current gender identity: Female Physical Exam Const: COMMON NORMALS: no acute distress, patient oriented x3 and healthy appearing GENERAL APPEARANCE: anxious HENMT: COMMON NORMALS: normocephalic and atraumatic HEAD & SCALP: normocephalic and atraumatic Eye: COMMON NORMALS: conjunctivae normal CONJUNCTIVA: Yes conjunctivae normal Neck/C-Spine: COMMON NORMALS: full ROM and supple Chest: COMMONS NORMALS: normal inspection of the chest and normal palpation of entire chest wall Resp: COMMON NORMALS: normal respiratory effort, No retractions, No use of accessory muscles and clear to auscultation bilaterally AUSCULTATION: clear to auscultation bilaterally Cardio: COMMON NORMALS: regular rate, regular rhythm and No murmurs present (Cardio) RATE: regular rate RHYTHM: regular rhythm GI: COMMON NORMALS: Normal to inspection, nondistended, normoactive bowel sounds present, Soft to palpation, non-tender and no masses PALPATION: Yes Soft to palpation Extremity: COMMON NORMALS: normal to inspection and full ROM Neuro: COMMON NORMALS: patient oriented x3, moves all extremities and no focal motor deficits Psych: COMMON NORMALS: mental status grossly normal, Normal thought process present and cooperative THOUGHT PROCESS: Normal thought process present Skin: COMMON NORMALS: no rashes or lesions noted and no wounds GENERAL SKIN EXAM: no rashes or lesions noted Course Vital Signs: Vital signs: Vital Signs Pulse Rate 111 H 07/14/22 19:33 Respiratory Rate 22 H 07/14/22 19:33 Blood Pressure 139/84 07/14/22 19:33 Pulse Oximetry 100 07/14/22 19:33 Oxygen Delivery Me thod Nasal Cannula 07/14/22 19:33 Oxygen Flow Rate 6 07/14/22 19:33 MDM - SOB/Dyspnea Medical Decision Making Patient presents here with dyspnea is likely an anxiety attack as she is out of her Klonopin she is feels much improved here after I gave her Klonopin she is wanting to go home as she has to take care of her dogs I did speak to her about possible intermediate as she seems to have a hard time taking care of her self and had multiple ER visits she states she does not want intermediate whatsoever she states she has dogs and likes to live at home she is to fill her Klonopin tomorrow and return if worsening. Lab Data Labs/Radiology: Radiology Impressions Chest X-Ray 07/14/22 18:40 IMPRESSION: Decrease in left basilar opacities Laboratory Results Specimen Type Arterial 07/14/22 18:43 Sample Site Brachial, left 07/14/22 18:43 ABG pH 7.43 (7.35-7.45) 07/14/22 18:43 ABG pCO2 45.3 mmHg (35-45) H 07/14/22 18:43 ABG pO2 84.2 mmHg (80.0-100.0) 07/14/22 18:43 ABG HCO3 30.0 mmol/L (22-26) H 07/14/22 18:43 ABG Base Excess 4.9 mmol/L (-2.0-2.0) H 07/14/22 18:43 Stephen Test Pos 07/14/22 18:43 Hematocrit 43.1 % (37-47) 07/14/22 18:43 O2 Delivery Device Nc 07/14/22 18:43 O2 Liters/Min 6.0 % 07/14/22 18:43 Road Manager ID Cak 07/14/22 18:43 EKG Data EKG 1: I personally reviewed and interpreted this EKG as follows: EKG Interpretation Date: 07/14/22 EKG interpretation time: 18:48 Interpretation: sinus tach hr [address] or t wave abnormalities qrs 77 qtc 386 Discharge Plan Discharge Patient Disposition: Home Clinical Impression: Dyspnea, Anxiety Condition: Stable Prescriptions: No Action albuterol sulfate [Ventolin HFA] 90 mcg/actuation HFA aerosol inhaler 1 - 2 puff INHALATION Q4H PRN (Reason: Shortness Of Breath) hydrocodone-acetaminophen 10-325 mg Tablet 1 - 2 tab PO QID PRN (Reason: Pain) levothyroxine 125 mcg Tablet 125 mcg PO QAM aspirin 81 mg Tablet,Delayed Release (Dr/Ec) 81 mg PO BEDTIME ascorbic acid (vitamin C) [Vitamin C] 500 mg Tablet 500 mg PO DAILY ipratropium-albuterol 0.5 mg-3 mg(2.5 mg base)/3 mL solution for nebulization 3 ml inhalation Q6H PRN (Reason: shortness of breath or wheezing) Qty: 180 0RF Rx Instructions: until breathing returns to target peak flow/parameters prednisone 20 mg tablet 20 mg PO TID Qty: 15 0RF Rx Instructions: 1 p.o. 3 times daily x3 days, 1 p.o. twice daily x2 days, 1 p.o. 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
[2022-07-14 18:46] VITALS: BP 137/85; PULSE 124; RESP 24; O2SAT 98
--- NOTE | 2022-07-14 18:48 | ECG_ITS ---
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 Measurements Intervals [place] Rate: 123 P: 88 OR: 137 QRS: 43 QRSD: 77 T: 77 QT: 313 QTc: 449 Interpretive Statements SINUS TACHYCARDIA POSSIBLE RIGHT VENTRICULAR CONDUCTION DELAY [RSR (QR) IN V1/V2] ABNORMAL RHYTHM ECG Compared to ECG 07/14/2022 04:43:41 Sinus rhythm no longer present Electronically Signed On 07-15-2022 16:35:11 CDT by Giorgi Justin M.D. [id number]
[2022-07-14 18:54] LABS: ABG PCO2 45.3 mmHg (35-45); ABG PH Result 7.43 (7.35-7.45); Arterial Blood Gas Hematocrit 43.1 % (37-47); Base Excess ABG 4.9 mmol/L (-2.0-2.0); Blood Gas Allen Test Pos; Blood Gas Operator Identificat CAK; Blood Gas Sample Site Brachial, left; Blood Gas Sample Type Arterial; Oxygen Device NC; PO2 ABG 84.2 mmHg (80.0-100.0)
[2022-07-14] MEDS: CLONazepam 0.5 mg Tablet PO (18:57)
[2022-07-14 19:33] VITALS: BP 139/84; PULSE 111; RESP 22; O2SAT 100
--- NOTE | 2022-07-14 20:05 | PC.NURSE ---
Per verbal order dr reza- send 2 tabs of clonazepam 0.5mg home with the patient.
[2022-07-14 20:06] VITALS: BP 139/84; PULSE 121; RESP 22; O2SAT 100
== END 2022-07-14 20:08 | disposition home or self-care (01) ==
PROVIDERS: Emergency Provider Emergency Medicine; PCP Family Medicine
DX: F41.9 Anxiety disorder, unspecified (principal); R06.00 Dyspnea, unspecified
CPT/HCPCS: 36600; 71045; 82803; 93005; 99285

== ENCOUNTER 2022-08-05 10:56 | Inpatient (IN) | payer MEDICARE, SELFPAY ==
[2022-08-05] VITALS (50 sets, daily range): BP systolic 106–178; BP diastolic 72–126; PULSE 94–130; RESP 9–34; TEMP 36.6–36.9; O2SAT 91–99; BMI 33.2
--- NOTE | 2022-08-05 10:57 | W.ED.SOB ---
HPI - SOB/Dyspnea General: Chief Complaint: Shortness of Breath/Dyspnea Stated Complaint: RESP DISTRESS Time Seen by Provider: 08/05/22 10:56 History of Present Illness: HPI Narrative: Ms. Montes De Oca is a 72-year-old lady with history of known COPD and chronic hypoxic respiratory failure presenting to the emergency department for shortness of breath. She notes worsening symptoms starting this morning. She has tried her home medications without significant relief. EMS found the patient to be in the low 80s with severely diminished lung sounds and limited air movement. They administered 2 DuoNebs as well as steroids and I have made some improvement in overall aeration of lungs. Patient still reports feeling short of breath though oxygen saturations have improved with EMS treatment. Overall course of symptoms has persisted. Intensity is severe. She has had similar episodes in the past. No other specific changes in health, exacerbating, or alleviating factors identified. Onset (ago): hour(s) Timing: constant Severity: severe Exacerbating factors: nothing Relieving factors: nothing Known history of: COPD Associated symptoms: Reports cough Review of Systems General: Reports: 10 or more systems reviewed and unremarkable except in HPI and below PFSH ED PFSH: Medical History Chronic respiratory failure with hypoxia COPD (chronic obstructive pulmonary disease) Panic anxiety syndrome Surgical History History of appendectomy History of cholecystectomy History of hysterectomy Hx of tonsillectomy Family History Other No pertinent family history Social History Smoking and tobacco status: former smoker Quit status (tobacco): has quit using tobacco Year quit tobacco: 2015 - 1PPD x 40 Years Alcohol intake: never Substance/Drug Use: never Lives independently: Yes Household members: none Current occupational status: disabled Pets and animals: Yes Pets & animals: dog(s) Do you think of yourself as: Straight/Heterosexual Current gender identity: Female Physical Exam Const: COMMON NORMALS: alert GENERAL APPEARANCE: cooperative, well developed and ill appearing HENMT: COMMON NORMALS: normocephalic and atraumatic HEAD & SCALP: normocephalic and atraumatic Eye: COMMON NORMALS: conjunctivae normal CONJUNCTIVA: Yes conjunctivae normal SCLERA: sclerae normal Neck/C-Spine: COMMON NORMALS: supple GENERAL: Yes trachea midline Resp: EFFORT & INSPECTION: Yes tachypneic, Yes respiratory distress, Yes labored and Yes uses accessory muscles AUSCULTATION: wheezes and diminished lung sounds Cardio: COMMON NORMALS: regular rate and regular rhythm RATE: regular rate RHYTHM: regular rhythm GI: COMMON NORMALS: Soft to palpation PALPATION: Yes Soft to palpation and No Tenderness to palpation present (GI) Extremity: GENERAL: Yes normal exam except as noted and No edema Neuro: COMMON NORMALS: moves all extremities SENSORIUM/ORIENTATION: Yes alert and No Orientation impaired Psych: COMMON NORMALS: mental status grossly normal and Normal thought process present THOUGHT PROCESS: Normal thought process present Course Vital Signs: Vital signs: Vital Signs Temperature 98.0 F 08/07/22 10:03 Pulse Rate 78 08/07/22 10:03 Respiratory Rate 18 08/07/22 10:03 Blood Pressure 158/78 08/07/22 10:03 Pulse Oximetry 98 08/07/22 10:03 Oxygen Delivery Me thod Nasal Cannula 08/07/22 08:35 Oxygen Flow Rate 6 08/07/22 08:35 Fraction of Inspir ed Oxygen 28 08/07/22 03:09 MDM - SOB/Dyspnea Medical Decision Making 72-year-old lady with known history of COPD and chronic hypoxic respiratory failure presents to the emergency department in respiratory distress. EMS reported baseline oxygen 80% oxygen saturation with markedly diminished aeration of the lungs and tachypnea/respiratory distress. Received prehospital DuoNeb x2 and steroids with some improved aeration. Given respiratory distress ABG, repeat RT treatment, BiPAP ordered. ABG 7.3/74.8/107 indicating hypercapnic respiratory failure. EKG demonstrates sinus rhythm with normal axis and intervals, tachycardia present with mild nonspecific ST segment abnormalities which are likely rate related, no STEMI. Labs with minimal leukocytosis, normal hemoglobin and platelet count. Essentially unremarkable metabolic panel. Negative D-dimer. Initial troponin is negative. BNP only minimally elevated at 192. Viral panel is pending. Chest x-ray with questionable right-sided lower more prominent infiltrate compared to prior. Patient does endorse increased productive cough with sputum change color. Antibiotics ordered. Additional RT treatment ordered. On reassessment wearing BiPAP patient's respiratory effort is significantly improved and she reports improvement. She has better aeration of the lungs the wheezes still persist. The results of ED evaluation were discussed with the patient including plan for admission due to requirement for level of care not available if discharged to prevent significant worsening/deterioration. Patient agreeable with plan. Discussed with hospitalist service who was agreeable to admit patient. Medical Records I reviewed the patient's medical records. Lab Data I reviewed the patient's lab results. 08/07/22 05:58 08/07/22 05:58 Labs/Radiology: Radiology Impressions Chest X-Ray 08/06/22 07:00 IMPRESSION: Stable appearance of the chest, not significantly changed from 08/05/2022 . Laboratory Results WBC 10.1 10^3/uL (4.0-10.0) H 08/05/22 10:45 RBC 4.34 10^6/uL (4.1-5.3) 08/05/22 10:45 Hgb 13.7 g/dL (11.5-15.3) 08/05/22 10:45 Hct 44.0 % (37.0-47.0) 08/05/22 10:45 MCV 101.4 fl (81-99) H 08/05/22 10:45 MCH 31.6 pg (28.0-34.0) 08/05/22 10:45 MCHC 31.1 g/dL (30.0-36.0) 08/05/22 10:45 RDW 13.6 % (12.1-15.1) 08/05/22 10:45 Plt Count 320 10^3/cmm (130-400) 08/05/22 10:45 MPV 10.5 fL (7.4-10.4) H 08/05/22 10:45 Neut % (Auto) 54.5 % 08/05/22 10:45 Lymph % (Auto) 19.5 % 08/05/22 10:45 Rowan % (Auto) 11.4 % 08/05/22 10:45 Eos % (Auto) 13.4 % 08/05/22 10:45 Baso % (Auto) 0.9 % 08/05/22 10:45 Neut # (Auto) 5.49 10^3/uL (1.8-7.7) 08/05/22 10:45 Lymph # (Auto) 2.0 10^3/uL (0.8-4.8) 08/05/22 10:45 Rowan # (Auto) 1.2 10^3/uL (0.2-0.9) H 08/05/22 10:45 Eos # (Auto) 1.4 10^3/uL (0.0-0.8) H 08/05/22 10:45 Baso # (Auto) 0.1 10^3/uL (0.0-0.1) 08/05/22 10:45 Nucleated RBC % (auto) 0 % 08/05/22 10:45 Nucleated RBCs # 0.0 /100WBC 08/05/22 10:45 D-Dimer 0.50 ug/mIFEU (0-0.59) 08/05/22 10:45 Specimen Type Arterial 08/05/22 11:00 Sample Site Radial, left 08/05/22 11:00 ABG pH 7.30 (7.35-7.45) L 08/05/22 11:00 ABG pCO2 74.8 mmHg (35-45) H* 08/05/22 11:00 ABG pO2 107.0 mmHg (80.0-100.0) H 08/05/22 11:00 ABG HCO3 36.5 mmol/L (22-26) H 08/05/22 11:00 ABG Base Excess 7.3 mmol/L (-2.0-2.0) H 08/05/22 11:00 Stephen Test Pos 08/05/22 11:00 Hematocrit 40.9 % (37-47) 08/05/22 11:00 O2 Delivery Device Nc 08/05/22 11:00 O2 Liters/Min 6.0 % 08/05/22 11:00 Electrical Repairer ID Cak 08/05/22 11:00 Sodium 144 mmol/L (136-145) 08/05/22 10:45 Potassium 3.5 mmol/L (3.5-5.1) 08/05/22 10:45 Chloride 103 mmol/L (98-107) 08/05/22 10:45 Carbon Dioxide 34 mmol/L (22-29) H 08/05/22 10:45 Anion Gap 10.5 (5-19) 08/05/22 10:45 BUN 14 mg/dL (8-23) 08/05/22 10:45 Creatinine 0.5 mg/dL (0.5-0.9) 08/05/22 10:45 GFR Calculation Not Reportable 08/05/22 10:45 Glucose 105 mg/dL (65-115) 08/05/22 10:45 Calculated Osmolality 299 mOsm/kg (285-295) H 08/05/22 10:45 Lactic Acid 1.5 mmol/L (0.5-2.2) 08/05/22 13:41 Calcium 8.8 mg/dL (8.5-10.5) 08/05/22 10:45 Total Bilirubin 0.4 mg/dL (0.15-1.2) 08/05/22 10:45 AST 15 U/L (0-32) 08/05/22 10:45 ALT 7 U/L (0-33) 08/05/22 10:45 Alkaline Phosphatase 65 U/L (35-105) 08/05/22 10:45 Troponin T Baseline 9 ng/L (0-10) 08/05/22 10:45 Troponin T 120 Minute 8.11 ng/L (0-10) 08/05/22 13:41 Delta Troponin T -0.89 ABS# (0-10) L 08/05/22 13:41 NT-Pro-B Natriuret Pep 192 pg/mL (0-125) H 08/05/22 10:45 Total Protein 6.4 g/dL (6.6-8.7) L 08/05/22 10:45 Albumin 4.0 g/dL (3.5-5.2) 08/05/22 10:45 Globulin 2.4 g/dL (1.3-4.6) 08/05/22 10:45 Procalcitonin 0.02 ng/mL (0-0.5) 08/05/22 10:45 TSH 2.13 uIU/mL (0.27-4.20) 08/05/22 10:45 Nasal Influ A H1 2008 PCR Not detected (NOT DETECT) 08/05/22 11:40 Adenovirus (PCR) Not detected (NOT DETECT) 08/05/22 11:40 C. pneumoniae DNA (PCR) Not detected (NOT DETECT) 08/05/22 11:40 Coronavirus 229E (PCR) Not detected (NOT DETECT) 08/05/22 11:40 Human Metapneumovir PCR Not detected (NOT DETECT) 08/05/22 11:40 Influenza A (H1) PCR Not detected (NOT DETECT) 08/05/22 11:40 Influenza A (H3) PCR Not detected (NOT DETECT) 08/05/22 11:40 Influenza Type A (PCR) Not detected (NOT DETECT) 08/05/22 11:40 Influenza Type B (PCR) Not detected (NOT DETECT) 08/05/22 11:40 M. pneumoniae (PCR) Not detected (NOT DETECT) 08/05/22 11:40 Parainfluenza 1 (PCR) Not detected (NOT DETECT) 08/05/22 11:40 Parainfluenza 2 (PCR) Not detected (NOT DETECT) 08/05/22 11:40 Parainfluenza 3 (PCR) Not detected (NOT DETECT) 08/05/22 11:40 Parainfluenza 4 (PCR) Not detected (NOT DETECT) 08/05/22 11:40 RSV Type A (PCR) Not detected (NOT DETECT) 08/05/22 11:40 RSV Type B (PCR) Not detected (NOT DETECT) 08/05/22 11:40 Entero/Rhino (PCR) Not detected (NOT DETECT) 08/05/22 11:40 SARS-CoV-2 (PCR) Not detected (NOT DETECT) 08/05/22 11:40 Discharge Plan Discharge Patient Disposition: Admitted As Inpatient Admit Provider: Yuniel Hudson Clinical Impression: Acute exacerbation of chronic obstructive airways disease, Acute on chronic respiratory failure with hypoxia and hypercapnia, Acute respiratory distress Condition: Stable Discharge Diet: Regular and Cardiac Discharge Activity: Resume usual activity Coding Level of Care Code ED Freelance Translator for Ji Melgar
--- NOTE | 2022-08-05 11:01 | ECG_ITS ---
[facility] Test Date: 2022-08-05 Pat Name: Socorro Montes De Oca Department: Room: Gender: Female Graphics Manager: : 1950 Requested By: Isael Castorena Order Number: [id number] Octavio MD: Jamaal Drummond M.D. Measurements Intervals [place] Rate: 117 P: 83 DE: 120 QRS: 70 QRSD: 73 T: 79 QT: 328 QTc: 459 Interpretive Statements SINUS TACHYCARDIA POSSIBLE RIGHT VENTRICULAR CONDUCTION DELAY [RSR (QR) IN V1/V2] Compared to ECG 07/14/2022 18:48:42 No significant changes Electronically Signed On 08-05-2022 14:00:34 CDT by Jamaal Drummond M.D. [id number]
--- NOTE | 2022-08-05 11:01 | XRR_ITS ---
PROCEDURE INFORMATION: Exam: XR Chest Exam date and time: 08/05/2022 11:44 AM Age: 72 years old Clinical indication: Chest pain/pressure on breathing. TECHNIQUE: Imaging protocol: Radiologic exam of the chest. Views: 1 view. COMPARISON: CR (CHEST, ) 07/14/2022 6:53 PM FINDINGS: Lungs: A small nodule in the lateral aspect of the right upper lobe is unchanged since at least February 2022 (2.7 mm). No pulmonary consolidation. Pleural spaces: No pleural effusion. No pneumothorax. Heart/Mediastinum: Cardiac silhouette is unchanged. No gross evidence of pneumomediastinum. Bones/joints: No gross fracture. XR/XR chest 1V portable [id number] IMPRESSION: A small nodule in the lateral aspect of the right upper lobe is unchanged since at least February 2022 (2.7 mm). Recommend CT chest to better characterize; this could be obtained on a nonemergent basis.
[2022-08-05] MEDS: ipratropium-albuterol 3 mL Neb INHALATION ×3 (11:07→19:46)
[2022-08-05 11:12] LABS: ABG PCO2 74.8 mmHg (35-45); Arterial Blood Gas Hematocrit 40.9 % (37-47); Base Excess ABG 7.3 mmol/L (-2.0-2.0); Blood Gas Allen Test Pos; Blood Gas Operator Identificat CAK; Blood Gas Sample Site Radial, left; Blood Gas Sample Type Arterial; HCO3 ABG 36.5 mmol/L (22-26); Oxygen Device NC
[2022-08-05 11:18] LABS: Basophils # 0.1 10^3/uL (0.0-0.1); Basophils % 0.9 %; Eosinophils # 1.4 10^3/uL (0.0-0.8); Eosinophils % 13.4 %; Hemoglobin 13.7 g/dL (11.5-15.3); Lymphocytes % 19.5 %; Mean Corpuscular HGB Conc 31.1 g/dL (30.0-36.0); Mean Corpuscular Hemoglobin 31.6 pg (28.0-34.0); Mean Corpuscular Volume 101.4 fl (81-99); Mean Platelet Volume 10.5 fL (7.4-10.4); Monocytes # 1.2 10^3/uL (0.2-0.9); Monocytes % 11.4 %; Neutrophils # 5.49 10^3/uL (1.8-7.7); Neutrophils % 54.5 %; Nucleated Red Blood Cells % 0 %; Platelet Count 320 10^3/cmm (130-400); Red Blood Count 4.34 10^6/uL (4.1-5.3); Red Cell Distribution Width 13.6 % (12.1-15.1); White Blood Count 10.1 10^3/uL (4.0-10.0)
[2022-08-05 11:42] LABS: Troponin(5th) Baseline 9 ng/L (0-10)
[2022-08-05 11:52] LABS: Alanine Aminotransferase 7 U/L (0-33); Alkaline Phosphatase 65 U/L (35-105); Anion Gap 10.5 (5-19); Aspartate Amino Transferase 15 U/L (0-32); Blood Urea Nitrogen 14 mg/dL (8-23); Calcium 8.8 mg/dL (8.5-10.5); Carbon Dioxide 34 mmol/L (22-29); Chloride 103 mmol/L (98-107); Globulin 2.4 g/dL (1.3-4.6); Glucose 105 mg/dL (65-115); NT Pro B Type Natriuretic Pept 192 pg/mL (0-125); Osmolality Calculated 299 mOsm/kg (285-295); Potassium 3.5 mmol/L (3.5-5.1); Sodium 144 mmol/L (136-145); Total Bilirubin 0.4 mg/dL (0.15-1.2); Total Protein 6.4 g/dL (6.6-8.7)
[2022-08-05] MEDS: cefTRIAXone 1,000 MG in sodium chloride 0.9% (plus) 50 ML 100 MG IV (12:06)
[2022-08-05] MEDS: azithromycin 500 MG in sodium chloride 0.9% 250 ML 250 MG IV (12:08)
[2022-08-05] MEDS: albuterol 2.5 mg/3 mL Neb INHALATION (12:12)
--- NOTE | 2022-08-05 12:15 | PM.HP ---
Providers/Chief Complaint Primary Care Provider: Cuauhtemoc Atkins MD Chief Complaint: RESP DISTRESS History of Present Illness Socorro Montes De Oca is a 72 year old female with a past medical of COPD, quit smoking in 2004, anxiety, panic disorder, chronic oxygen dependency on 6 L, panic anxiety syndrome, hypothyroidism, on chronic opiate therapy, who presents [facility] due to shortness of breath. Patient tells me that she today this morning started to feel short of breath, with cough, no fevers, no chills she continued to feel short of breath, and tightness in her lungs, no chest pain, palpitations so she called EMS. EMS found her with O2 sats in the low 80s, diminished bowel sounds in all lung tirado, limited air movement, was given nebulizers steroids in the emergency room, she continued to have complaints of shortness of breath, decreased air movement was placed on BiPAP therapy, concerns for respiratory distress, ABG showed acute hypercarbic respiratory failure with hypoxia, patient currently is on BiPAP alert to person, to place, time, she is short breath with a few words, does have nasal flaring intercostal retractions, moderate respiratory distress, but can follow commands, tachypneic, tachycardic, has wheezing in all lung tirado, she is okay with CPR but for short time she is okay with intubation, but does not want to remain on life-sustaining measures, review of chest x-ray does show she has a right lower lobe infiltrate, she will receive antibiotics in the emergency room, reviewed blood work EKG shows sinus tachycardia Review of Systems Const: Denies: fever(s) Eyes: Denies: change in vision Card: Denies: chest pain or palpitations Resp: Reports: dyspnea and non-productive cough GI: Denies: abdominal pain : Denies: flank pain or difficulty voiding Musc: Denies: neck pain or back pain Skin/Breast: Denies: rash Neuro: Denies: headache(s) or numbness in extremities Psych: Reports: anxiety Endo: Denies: polyuria Medications/Allergies Home Medications Medication Instructions Recorded Confirmed Last Taken Type albuterol sulfate 90 mcg/actuation 1 - 2 puff inhalation Q4H PRN 08/21/19 08/05/22 Unknown History aerosol inhaler (Ventolin HFA) Shortness Of Breath hydrocodone 10 mg-acetaminophen 1 - 2 tab PO QID PRN Pain 02/07/22 08/05/22 Unknown History 325 mg tablet ascorbic acid (vitamin C) 500 mg 500 mg PO DAILY 03/08/22 08/05/22 08/04/22 History tablet (Vitamin C) aspirin 81 mg tablet,delayed 81 mg PO BEDTIME 03/08/22 08/05/22 08/04/22 History release ipratropium 0.5 mg-albuterol 3 mg 3 ml inhalation Q6H PRN shortness 03/10/22 08/05/22 Unknown Rx (2.5 mg base)/3 mL nebulization of breath or wheezing #180 mL soln levothyroxine 125 mcg tablet 125 mcg PO QAM 04/23/22 08/05/22 08/05/22 History Allergies Allergy/AdvReac Type Severity Reaction Status Date / Time olanzapine [From Zyprexa] Allergy Severe edema Verified 07/05/22 03:43 PFSH Acute PFSH: Medical History Chronic respiratory failure with hypoxia COPD (chronic obstructive pulmonary disease) Panic anxiety syndrome Surgical History History of appendectomy History of cholecystectomy History of hysterectomy Hx of tonsillectomy Family History Other No pertinent family history Social History Smoking and tobacco status: former smoker Quit status (tobacco): has quit using tobacco Year quit tobacco: 2014 - 1PPD x 40 Years Alcohol intake: never Substance/Drug Use: never Lives independently: Yes Household members: none Current occupational status: disabled Pets and animals: Yes Pets & animals: dog(s) Do you think of yourself as: Straight/Heterosexual Current gender identity: Female Vitals/I&O/Wt Last Vital Signs Temp 98 F 08/05/22 10:57 Pulse 101 H 08/05/22 12:14 Resp 20 H 08/05/22 12:12 BP 145/96 08/05/22 11:48 Pulse Ox 97 08/05/22 12:12 O2 Del Method BiPAP 08/05/22 12:12 O2 Flow Rate 6 08/05/22 11:08 FiO2 28 08/05/22 12:14 Weight last 48 hrs Weight 77.111 kg Physical Exam Const: COMMON NORMALS: no acute distress and patient oriented x3 GENERAL APPEARANCE: cooperative, well kempt and well developed HENMT: COMMON NORMALS: normocephalic and Normal external nose present FACE & SINUS: normal facial exam Eye: COMMON NORMALS: Equal, round and reactive pupils present, EOMs intact bilaterally and conjunctivae normal CONJUNCTIVA: Yes conjunctivae normal PUPIL: Yes Equal, round and reactive pupils present Neck/C-Spine: COMMON NORMALS: full ROM, no lymphadenopathy, no JVD, Thyroid normal and No carotid bruits THYROID: Thyroid normal Lymph: LYMPHATIC: no lymphadenopathy noted Chest: COMMONS NORMALS: normal inspection of the chest Resp: EFFORT & INSPECTION: Yes tachypneic, Yes respiratory distress, Yes Actively coughing, Yes retractions intercostal, Yes uses accessory muscles and Yes audible wheezes AUSCULTATION: wheezes Cardio: COMMON NORMALS: regular rhythm, S1 normal heart sound present, S2 normal heart sound present, No murmurs present (Cardio) and Peripheral pulses 2+ throughout RATE: tachycardic RHYTHM: regular rhythm HEART SOUNDS: S1 normal heart sound present and S2 normal heart sound present PERIPHERAL PULSES: Peripheral pulses 2+ throughout GI: COMMON NORMALS: Normal to inspection, nondistended, normoactive bowel sounds present, Soft to palpation and non-tender PALPATION: Yes Soft to palpation : COMMON NORMALS: Yes no CVA tenderness BLADDER/KIDNEY EXAM: Yes no CVA tenderness Back/Pelvis: COMMON NORMALS: no CVA tenderness Extremity: COMMON NORMALS: normal to inspection, full ROM, capillary refill normal, no calf tenderness and no pedal edema Neuro: COMMON NORMALS: patient oriented x3, CN's II-XII intact bilaterally, moves all extremities, no focal motor deficits and no sensory deficits noted MENINGEAL SIGNS: Yes no meningeal signs Psych: COMMON NORMALS: mental status grossly normal, Normal thought process present, cooperative and speech normal APPEARANCE: Yes well kempt SPEECH: Yes normal speech THOUGHT PROCESS: Normal thought process present Skin: COMMON NORMALS: turgor normal and no jaundice GENERAL SKIN EXAM: turgor normal Data 08/05/22 10:45 08/05/22 10:45 Other data: Review of chest x-ray shows right lower lobe infiltrate Review of EKG shows sinus tachycardia Review of ABG shows acute hypoxic hypercarbic respiratory failure A&P Assessment and plan (1) Chronic respiratory failure with hypoxia: (2) COPD (chronic obstructive pulmonary disease): (3) Acute exacerbation of chronic obstructive airways disease: (4) Panic attacks: (5) Bipolar 1 disorder: (6) Asthma-COPD overlap syndrome: (7) Acute exacerbation of chronic obstructive airways disease: (8) Acute on chronic respiratory failure with hypoxia and hypercapnia: (9) Acute respiratory distress: (10) Goals of care, counseling/discussion: (11) Anxiety disorder: (12) Right lower lobe pneumonia: Plan Acute hypoxic hypercarbic respiratory failure -Secondary to COPD exacerbation -Secondary to pneumonia -Currently in acute respiratory distress, mild to moderate Plan -We will monitor in the ICU closely -Continue BiPAP therapy -Extensive goals of care discussion, patient is agreeable to a couple rounds of CPR she is agreeable to intubation electively if required but does not want to remain on life-sustaining measures -Monitor respiratory status closely -Continue Rocephin -Continue azithromycin -Continue Decadron -Continue DuoNeb -Continue budesonide -Follow blood cultures, sputum cultures, respiratory viral panel -Full code -Lovenox for DVT prophylaxis Spoke to ER provider, spoke to nursing staff, spoke to patient Attestations Medical Necessity Statement*: Patient requires hospitalization, inpatient, greater than 2 midnights, for acute hypoxic hypercarbic respiratory failure with COPD exacerbation, pneumonia, acute respiratory distress Coding Level of Care Code Critical Care >/= 30 minutes Critical care time (in minutes): 50 The high probability of a clinically significant, sudden or life threatening deterioration, as referenced in this documentation, required my full and direct attention, intervention and personal management. The critical care time shown is in addition to time spent performing any reported separately billable procedures and includes the following: [x] Data and vital sign review and interpretation [x] Patient assessment, examination and intervention [x] Medication orders and management [x] Patient/Family updates as able [x] Care Coordination and Documentation. Diagnoses Chronic respiratory failure with hypoxia J96.11 COPD (chronic obstructive pulmonary disease) J44.9 Acute exacerbation of chronic obstructive airways disease J44.1 Panic attacks F41.0 Bipolar 1 disorder F31.9 Asthma-COPD overlap syndrome J44.9 Acute on chronic respiratory failure with hypoxia and hypercapnia J96.21; J96.22 Acute respiratory distress R06.03 Goals of care, counseling/discussion Z71.89 Anxiety disorder F41.9 Right lower lobe pneumonia J18.9
[2022-08-05 12:48] LABS: Procalcitonin 0.02 ng/mL (0-0.5)
--- NOTE | 2022-08-05 13:01 | ECG_ITS ---
[facility] Test Date: 2022-08-05 Pat Name: Socorro Montes De Oca Department: Room: Gender: Female Tobacco Buyer: : 1950 Requested By: Isael Castorena Order Number: [id number] Octavio MD: Jamaal Drummond M.D. Measurements Intervals [place] Rate: 103 P: 86 MT: 140 QRS: 62 QRSD: 87 T: 72 QT: 359 QTc: 471 Interpretive Statements SINUS TACHYCARDIA POSSIBLE RIGHT VENTRICULAR CONDUCTION DELAY [RSR (QR) IN V1/V2] Compared to ECG 08/05/2022 11:15:00 No significant changes Electronically Signed On 08-05-2022 14:01:38 CDT by Jamaal Drummond M.D. [id number]
[2022-08-05 13:59] LABS: Adenovirus Not Detected (NOT DETECT); Chlamydia Pneumoniae Not Detected (NOT DETECT); Coronavirus 229E,HKU1,NL63,OC4 Not Detected (NOT DETECT); Human Metapneumovirus Not Detected (NOT DETECT); Human Rhinovirus/Enterovirus Not Detected (NOT DETECT); Influenza A Not Detected (NOT DETECT); Influenza A H1 Not Detected (NOT DETECT); Influenza A H1-2009 Not Detected (NOT DETECT); Influenza A H3 Not Detected (NOT DETECT); Influenza B Not Detected (NOT DETECT); Mycoplasma Pneumoniae Not Detected (NOT DETECT); Parainfluenza Virus Type 1 Not Detected (NOT DETECT); Parainfluenza Virus Type 2 Not Detected (NOT DETECT); Parainfluenza Virus Type 3 Not Detected (NOT DETECT); Parainfluenza Virus Type 4 Not Detected (NOT DETECT); Respiratory Syncytial Virus A Not Detected (NOT DETECT); Respiratory Syncytial Virus B Not Detected (NOT DETECT); SARS-COV-2 Not Detected (NOT DETECT)
[2022-08-05 14:11] LABS: Troponin 5 2HR 8.11 ng/L (0-10)
[2022-08-05 14:12] LABS: Lactic Sepsis W/Reflex 1.5 mmol/L (0.5-2.2)
--- NOTE | 2022-08-05 14:46 | PC.NURSE ---
Report called to ICU at 1420. Room was not clean at that time. Called again at 1443, room still not clean.
[2022-08-05 14:51] LABS: Troponin 5 2HR Delta -0.89 ABS# (0-10)
[2022-08-05] MEDS: pantoprazole 40 mg SDV IVP (15:04)
[2022-08-05] MEDS: enoxaparin 40 mg/0.4 mL Syringe SUBCUT (15:05)
[2022-08-05] MEDS: dexamethasone 10 mg/mL INJ IVP (15:05)
[2022-08-05 16:01] LABS: Thyroid Stimulating Hormone 2.13 uIU/mL (0.27-4.20)
--- NOTE | 2022-08-05 16:14 | ECG_ITS ---
[facility] Test Date: 2022-08-05 Pat Name: Socorro Montes De Oca Department: Room: ICU12 Gender: Female Client Relationship Manager: : 1950 Requested By: Isael Castorena Order Number: [id number] Octavio MD: Jamaal Drummond M.D. Measurements Intervals [place] Rate: 106 P: 87 NH: 140 QRS: 70 QRSD: 87 T: 88 QT: 363 QTc: 483 Interpretive Statements SINUS TACHYCARDIA POSSIBLE RIGHT VENTRICULAR CONDUCTION DELAY [RSR (QR) IN V1/V2] Compared to ECG 08/05/2022 13:10:45 No significant changes Electronically Signed On 08-05-2022 20:25:12 CDT by Jamaal Drummond M.D. [id number]
[2022-08-05] MEDS: budesonide 0.5 mg/2 mL Neb INHALATION (19:46)
[2022-08-05] MEDS: HYDROcodone-acetaminophen 10-325 mg Tablet 1 TAB PO (20:18)
--- NOTE | 2022-08-05 23:18 | PC.NURSE ---
Called report to Bhavna on medsurg. Patient VSS. Belongings transferred with patients
[2022-08-06] VITALS (14 sets, daily range): BP systolic 110–174; BP diastolic 56–93; PULSE 89–119; RESP 15–23; TEMP 36.4–36.8; O2SAT 93–100
[2022-08-06] MEDS: acetaminophen 325 mg Tablet 650 MG PO ×3 (00:50→20:05)
[2022-08-06] MEDS: CLONazepam 1 mg Tablet PO (01:15)
--- NOTE | 2022-08-06 01:59 | PC.NURSE ---
patient is labile, ranging from tearful and anxious to aggressive, cursing, and yelling at staff. breathing labored and shallow, yelling that she can't breath despite oxygen saturation being 97% on oxygen. pt educated on disease process of copd exacerbation, pt unreceptive to information. still hostile. using call light every 2-5 minutes to yell and cry at the staff, telling this nurse to take her head off due to her headache. yelled at this nurse for giving her tylenol for the headache stating that it would not help, but taking the medication anyway. breathing rapidly and panicking, dr cho was notified of pt status, and received order for 1mg klonopin for pt; medication administered. pt was yelling at this nurse within 30 minutes that the klonopin was not working, pt was educated that it can take up to an hour for effect. pt argued that it doesn't stating bullshit, you don't take this pill do you? I take it and I know , this nurse conceded that she doesn't take the pill and the pt could be right. the pt stated that her norco she takes at home helped her head, that she took two 10-325 tabs and that it worked. this nurse explained that the current order in the [facility] only gave one 10-325mg tab, and could pull that to administer to see if it helped as well as informed her that this nurse messaged the dr to see if the order could be changed to reflect the home prescription and was waiting to hear back. pt said it wouldn't help but she wanted it anyways and seemed to calm down for the time. medication was administered. this nurse explained to the pt that staff was trying to help her and that cursing and yelling at staff was not okay. this nurse suggested that the pt calm down, take deep breaths , and to give the medication a chance to work. the pt became tearful and apologized, stating that it wasn't okay that she was treating staff the way she had been, that her head hurt and she missed her dog. this nurse acknowledged that the pt was upset and understood she was in pain, and told her it was ok.
[2022-08-06] MEDS: HYDROcodone-acetaminophen 10-325 mg Tablet 1 TAB PO ×2 (02:06→22:53)
--- NOTE | 2022-08-06 02:30 | PC.NURSE ---
This nurse went to check on pt since pt was yelling loudly for help. This nurse asked what she could do to help the pt. The patient replied You need to do something about this headache. This nurse explained that we had given all the meds ordered for the pt's headache, had attempted repositioning and other comfort measures, and that there was nothing else we could give her. The patient began yelling and cursing, saying that the medicine wouldn't work. Then the patient began stating that she needed her dog. This nurse asked what she could do to make the patient happy and satisfied. The patient stated I don't want to be happy, I want to be miserable. This nurse explained that there is nothing else to do for the patient then. The patient began yelling again. This nurse explained that there were other people on the floor trying to sleep and that yelling and cursing instead of using the call light was inappropriate. The patient continued to yell and curse. This nurse explained that that behavior was inappropriate and unacceptable, and left the room after making sure the patient's call light was in reach.
--- NOTE | 2022-08-06 02:36 | PC.NURSE ---
pt was placed on bipap during around midnight while she was anxious and stating she couldnt breathe, within five minutes the patient was screaming to take it off, this nurse removed the bipap and placed oxygen back on. instructed the pt to slow her breathing and purse lip breathe. pt was encouraged to place bipap back on r/t abg result, pt refused. will continue to monitor and attempt to encourage pt to place bipap on. notified of this as well.
[2022-08-06 04:07] LABS: Add Urine Microscopic? NO; Charge for UA Resulting for Rev
[2022-08-06 04:09] LABS: Bilirubin Urine Neg (Negative); Blood Urine Neg (Negative); Glucose Urine UA Norm (Normal); Ketones Urine 1+ (Negative); Leukocyte Esterase Urine Negative (Negative); Nitrate Urine Negative (Negative); Protein Urine Neg (Negative); Specific Gravity, Urine 1.015 (1.005-1.030); Urine Appearance Clear (CLEAR); Urine Color Yellow (Yellow); Urobilinogen Urine Norm (Negative); pH Urine 7 (5-7)
[2022-08-06] MEDS: ipratropium-albuterol 3 mL Neb INHALATION ×5 (04:15→22:12)
[2022-08-06] MEDS: ALPRAZolam 0.5 mg Tablet PO (04:55)
--- NOTE | 2022-08-06 05:01 | PC.NURSE ---
Pt remains anxious and tearful, con't to c/o of a JIMENEZ. B/p remains elevated at 164/75, pulse ox remains stable. Administered PRN APAP per orders, hydro/apap unable to be administered at this time. Pt states that her dog Bee would take care of her at home. Pt states she wants to go home and pass away with her dog, and that she is never going to call the ambulance to bring her back her again to the hospital. One on one care and redirection provided allowing the pt to vent her feelings and concerns. Contacted physician regarding pt statements of wanting to return home to pass away peacefully, along with pt continued anxiety and headache. Pt's care and current medications discussed. NO received and noted for Alprazolam 0.5mg x 1 dose now. Alprazolam administered per orders. Pt apologized for being rude and yelling at staff. One on one care and redirection continues.
[2022-08-06] MEDS: levothyroxine 125 mcg Tablet PO (06:12)
--- NOTE | 2022-08-06 06:14 | PC.NURSE ---
Pt has been screaming for the physician to come and see her so that she can leave. Explained to the pt that the physician saw her in the ICU prior to her transferring to [facility], and told her that she could leave AMA if she wanted to go home. This nurse and Bhavna JUAREZ explained to the pt that she could leave AMA, however if she wanted to see the physician that she would have to wait until the other physician that was on day shift arrived to see her. Pt remains belligerent w/staff, and agitated. One on one care and redirection continues.
[2022-08-06 06:55] LABS: Basophils % 0.1 %; Hematocrit 41.3 % (37.0-47.0); Hemoglobin 13.1 g/dL (11.5-15.3); Lymphocytes # 0.5 10^3/uL (0.8-4.8); Lymphocytes % 5.9 %; Mean Corpuscular HGB Conc 31.7 g/dL (30.0-36.0); Mean Corpuscular Hemoglobin 31.3 pg (28.0-34.0); Mean Corpuscular Volume 98.6 fl (81-99); Mean Platelet Volume 11.7 fL (7.4-10.4); Monocytes # 0.1 10^3/uL (0.2-0.9); Monocytes % 0.9 %; Neutrophils # 7.95 10^3/uL (1.8-7.7); Neutrophils % 92.5 %; Nucleated Red Blood Cells % 0 %; Platelet Count 336 10^3/cmm (130-400); Red Blood Count 4.19 10^6/uL (4.1-5.3); Red Cell Distribution Width 13.6 % (12.1-15.1); White Blood Count 8.6 10^3/uL (4.0-10.0)
--- NOTE | 2022-08-06 07:00 | XRR_ITS ---
PROCEDURE INFORMATION: Exam: XR Chest Exam date and time: 08/06/2022 7:50 AM Age: 72 years old Clinical indication: Shortness of breath; Additional info: SOB TECHNIQUE: Imaging protocol: Radiologic exam of the chest. Views: 1 view. COMPARISON: CR (CHEST, ) 08/05/2022 11:44 AM FINDINGS: Lungs: COPD, interstitial prominence, and chronic granulomatous disease. Pleural spaces: No pleural effusion. Heart/Mediastinum: Normal configuration of the heart. Bones/joints: Osteopenia and degenerative change. When correlating with the previous study, no significant interval changes are present. XR/XR chest 1V portable [id number] IMPRESSION: Stable appearance of the chest, not significantly changed from 08/05/2022 .
[2022-08-06 07:19] LABS: Alanine Aminotransferase 8 U/L (0-33); Albumin Level 3.9 g/dL (3.5-5.2); Alkaline Phosphatase 61 U/L (35-105); Anion Gap 15.6 (5-19); Aspartate Amino Transferase 18 U/L (0-32); Blood Urea Nitrogen 15 mg/dL (8-23); Calcium 9.1 mg/dL (8.5-10.5); Carbon Dioxide 29 mmol/L (22-29); Chloride 102 mmol/L (98-107); Globulin 2.6 g/dL (1.3-4.6); Glucose 124 mg/dL (65-115); Osmolality Calculated 298 mOsm/kg (285-295); Phosphorus 2.6 mg/dL (2.5-4.5); Potassium 3.6 mmol/L (3.5-5.1); Sodium 143 mmol/L (136-145); Total Bilirubin 0.5 mg/dL (0.15-1.2); Total Protein 6.5 g/dL (6.6-8.7)
[2022-08-06] MEDS: budesonide 0.5 mg/2 mL Neb INHALATION ×2 (08:04→22:12)
[2022-08-06] MEDS: dexamethasone 10 mg/mL INJ 6 MG IVP (09:25)
[2022-08-06] MEDS: ascorbic acid 500 mg Tablet PO (09:25)
[2022-08-06] MEDS: azithromycin 500 MG in sodium chloride 0.9% 250 ML 250 MG IV (13:06)
[2022-08-06] MEDS: cefTRIAXone 1,000 MG in sodium chloride 0.9% (plus) 50 ML 100 MG IV (13:06)
--- NOTE | 2022-08-06 14:35 | PM.PN ---
Subjective Subjective: Patient was seen this morning, she continues to complain of shortness of breath, cough, she does feel better she tells me no fevers, chills, she was moved to [facility] overnight Vitals/I&O/Wt Last Vital Signs Temp 97.9 F 08/06/22 08:00 Pulse 119 H 08/06/22 13:05 Resp 19 H 08/06/22 13:05 BP 174/93 08/06/22 08:00 Pulse Ox 94 08/06/22 13:05 O2 Del Method Nasal Cannula 08/06/22 13:05 O2 Flow Rate 4 08/06/22 13:05 FiO2 28 08/05/22 22:00 08/05/22 08/06/22 08/06/22 22:59 06:59 14:59 Intake Total 200 / 500 240 / 240 Balance 200 / 500 240 / 240 Weight last 48 hrs Weight 77.111 kg Physical Exam Const: COMMON NORMALS: no acute distress and patient oriented x3 Resp: COMMON NORMALS: normal respiratory effort, No retractions and No use of accessory muscles AUSCULTATION: wheezes Cardio: COMMON NORMALS: regular rate, regular rhythm, S1 normal heart sound present and S2 normal heart sound present RATE: regular rate RHYTHM: regular rhythm HEART SOUNDS: S1 normal heart sound present and S2 normal heart sound present GI: COMMON NORMALS: Normal to inspection, nondistended, normoactive bowel sounds present and non-tender Extremity: COMMON NORMALS: no clubbing, cyanosis or edema and no pedal edema Neuro: COMMON NORMALS: patient oriented x3 Psych: COMMON NORMALS: mental status grossly normal Data 08/06/22 03:53 08/06/22 03:53 Micro: Microbiology 08/05/22 21:13 Blood Culture - Preliminary Blood SPECIMEN COLLECTED 08/05/22 21:15 Blood Culture - Preliminary Blood SPECIMEN COLLECTED A&P Assessment and plan (1) Chronic respiratory failure with hypoxia: (2) COPD (chronic obstructive pulmonary disease): (3) Acute exacerbation of chronic obstructive airways disease: (4) Panic attacks: (5) Bipolar 1 disorder: (6) Asthma-COPD overlap syndrome: (7) Acute exacerbation of chronic obstructive airways disease: (8) Acute on chronic respiratory failure with hypoxia and hypercapnia: (9) Acute respiratory distress: (10) Goals of care, counseling/discussion: (11) Anxiety disorder: (12) Right lower lobe pneumonia: Plan Acute hypoxic hypercarbic respiratory failure -Secondary to COPD exacerbation -Secondary to pneumonia -Currently in acute respiratory distress, mild to moderate Plan -Moved to general medical floors -Continue BiPAP therapy -Extensive goals of care discussion, patient is agreeable to a couple rounds of CPR she is agreeable to intubation electively if required but does not want to remain on life-sustaining measures -Monitor respiratory status closely -Continue Rocephin -Continue azithromycin -Continue Decadron -Continue DuoNeb -Continue budesonide -Follow blood cultures, sputum cultures, respiratory viral panel -Full code -Lovenox for DVT prophylaxis Spoke to nursing staff spoke to patient, spoke to case management Plan for today for today is to give antibiotic therapy, continue steroids, up out of bed, continue BiPAP therapy monitor on MedSurg, add metoprolol for blood pressure Attestations Medical Necessity Statement*: Patient requires hospitalization for acute on chronic hypoxic hypercarbic respiratory failure Diagnoses Chronic respiratory failure with hypoxia J96.11 COPD (chronic obstructive pulmonary disease) J44.9 Acute exacerbation of chronic obstructive airways disease J44.1 Panic attacks F41.0 Bipolar 1 disorder F31.9 Asthma-COPD overlap syndrome J44.9 Acute on chronic respiratory failure with hypoxia and hypercapnia J96.21; J96.22 Acute respiratory distress R06.03 Goals of care, counseling/discussion Z71.89 Anxiety disorder F41.9 Right lower lobe pneumonia J18.9
[2022-08-06] MEDS: pantoprazole 40 mg SDV IVP (17:32)
[2022-08-06] MEDS: aspirin 81 mg EC Tablet PO (20:05)
--- NOTE | 2022-08-06 21:54 | PC.NURSE ---
pt had call light on multiple times asking for someone to feed her dog, pt offered money for someone to do this, pt pulled wallet out and began pulling pinedo out, nurse explained to pt that no staff is allowed to take pinedo from patients, pt given option to lock money up. pt agreed, pt counted $144 in pinedo, this nurse counted with charge nurse Brandi and counted at total of $424 (1-$100, 4-$20, 4-$1) in one compartment, another 10- $20 in another compartment, another 2-$20 in another compartment.
--- NOTE | 2022-08-06 23:41 | PC.NURSE ---
pt requested clothing and stated that she is leaving, nurse explained to pt current medical condition requires hospitalization and that it is not conducive to pt health and general well being to go home late at night when she has no support system at home, pt verbalized needing to go home to take care of her dog, nurse explained that if pt condition worsens while at home, she will not be any help to the dog. pt continue to state that she wants to leave, nurse informed pt that that is her right to do so but really encouraging her to change her mind. Dr. Chandra notified.
[2022-08-07] VITALS (8 sets, daily range): BP systolic 149–158; BP diastolic 72–95; PULSE 67–127; RESP 16–25; TEMP 36.7–36.8; O2SAT 97–100
--- NOTE | 2022-08-07 02:26 | PC.NURSE ---
pt awakend and stating she is going home, same conversation repeated related to why it is not a good idea for pt to leave, pt statec she sis not car she needs to check on her dog, pt informed that levi sup is attempting to find a way to help pt by finding someone to check on her dog, pt continue to state I don't care I am leaving . pt is alert and oriented, able to make own decision, levi hoover in pt room now talking with pt.
--- NOTE | 2022-08-07 03:17 | PC.NURSE ---
pt demanded for her wallet and money back, charge nurse Brandi verified and witnessed pt receiving wallet with money still in it,
[2022-08-07] MEDS: levothyroxine 125 mcg Tablet PO (05:01)
[2022-08-07] MEDS: HYDROcodone-acetaminophen 10-325 mg Tablet 1 TAB PO (05:01)
[2022-08-07 05:06] LABS: Bacillus cereus group Not Detected (NOT DETECT); Bacillus subtillis group Not Detected (NOT DETECT); Corynebacterium Not Detected (NOT DETECT); Cutibacterium acnes (P.acnes) Not Detected (NOT DETECT); Enterococcus Not Detected (NOT DETECT); Enterococcus faecalis Not Detected (NOT DETECT); Enterococcus faecium Not Detected (NOT DETECT); Lactobacillus species Not Detected (NOT DETECT); Listeria Not Detected (NOT DETECT); Listeria monocytogenes Not Detected (NOT DETECT); Micrococcus Not Detected (NOT DETECT); Pan Candida Not Detected (NOT DETECT); Pan Gram-Negative Not Detected (NOT DETECT); Staphylococcus epidermidis Not Detected (NOT DETECT); Staphylococcus lugdunensis Not Detected (NOT DETECT); Staphylococcus species Detected (NOT DETECT); Streptococcus agalactiae Not Detected (NOT DETECT); Streptococcus anginosus group Not Detected (NOT DETECT); Streptococcus pneumoniae Not Detected (NOT DETECT); Streptococcus pyogenes Not Detected (NOT DETECT); Streptococcus species Not Detected (NOT DETECT); mecA Not Detected (NOT DETECT); mecC Not Detected (NOT DETECT)
[2022-08-07] MEDS: metoprolol tartrate 25 mg Tablet 12.5 MG PO (05:16)
[2022-08-07 06:27] LABS: Basophils % 0.1 %; Hematocrit 41.9 % (37.0-47.0); Hemoglobin 13.3 g/dL (11.5-15.3); Lymphocytes # 0.8 10^3/uL (0.8-4.8); Lymphocytes % 3.7 %; Mean Corpuscular HGB Conc 31.7 g/dL (30.0-36.0); Mean Corpuscular Hemoglobin 30.7 pg (28.0-34.0); Mean Corpuscular Volume 96.8 fl (81-99); Mean Platelet Volume 10.9 fL (7.4-10.4); Monocytes # 1.3 10^3/uL (0.2-0.9); Monocytes % 6.5 %; Neutrophils # 17.92 10^3/uL (1.8-7.7); Neutrophils % 89.3 %; Nucleated Red Blood Cells % 0 %; Platelet Count 355 10^3/cmm (130-400); Red Blood Count 4.33 10^6/uL (4.1-5.3); Red Cell Distribution Width 13.7 % (12.1-15.1); White Blood Count 20.1 10^3/uL (4.0-10.0)
[2022-08-07 07:01] LABS: Anion Gap 13.3 (5-19); Blood Urea Nitrogen 18 mg/dL (8-23); Carbon Dioxide 32 mmol/L (22-29); Chloride 100 mmol/L (98-107); Glucose 100 mg/dL (65-115); Osmolality Calculated 296 mOsm/kg (285-295); Potassium 3.3 mmol/L (3.5-5.1); Sodium 142 mmol/L (136-145)
[2022-08-07] MEDS: ascorbic acid 500 mg Tablet PO (08:26)
[2022-08-07] MEDS: acetaminophen 325 mg Tablet 650 MG PO (08:26)
[2022-08-07] MEDS: budesonide 0.5 mg/2 mL Neb INHALATION (08:33)
[2022-08-07] MEDS: ipratropium-albuterol 3 mL Neb INHALATION (08:33)
--- NOTE | 2022-08-07 12:42 | P.DS_ITS ---
Discharge Providers Date of Admission: 08/05/22 14:35 Date of Discharge: August 07, 2022 Attending Provider at Admission: Yuniel Hudson MD Attending Provider at Discharge: Yuniel Hudson MD Primary Care Provider: Cuauhtemoc Atkins MD Diagnoses at Discharge Discharge Diagnosis (1) Chronic respiratory failure with hypoxia: Status: Acute (2) COPD (chronic obstructive pulmonary disease): Status: Acute (3) Acute exacerbation of chronic obstructive airways disease: Status: Resolved (4) Panic attacks: Status: Acute (5) Bipolar 1 disorder: Status: Acute (6) Asthma-COPD overlap syndrome: Status: Acute (7) Acute on chronic respiratory failure with hypoxia and hypercapnia: Status: Acute (8) Acute respiratory distress: Status: Acute (9) Goals of care, counseling/discussion: Status: Acute (10) Anxiety disorder: Status: Acute (11) Right lower lobe pneumonia: Status: Acute Reason for Visit Reason for Visit: RESP DISTRESS Hospital Course Hospital Course Socorro Montes De Oca is a 72 year old female with a past medical of COPD, quit smoking in 2004, anxiety, panic disorder, chronic oxygen dependency on 6 L, panic anxiety syndrome, hypothyroidism, on chronic opiate therapy, who presents [facility] due to shortness of breath.? Patient tells me that she today this morning started to feel short of breath, with cough, no fevers, no chills she continued to feel short of breath, and tightness in her lungs, no chest pain, palpitations so she called EMS.? EMS found her with O2 sats in the low 80s, diminished bowel sounds in all lung tirado, limited air movement, was given nebulizers steroids in the emergency room, she continued to have complaints of shortness of breath, decreased air movement was placed on BiPAP therapy, concerns for respiratory distress, ABG showed acute hypercarbic respiratory failure with hypoxia, patient currently is on BiPAP alert to person, to place, time, she is short breath with a few words, does have nasal flaring intercostal retractions, moderate respiratory distress, but can follow commands, tachypneic, tachycardic, has wheezing in all lung tirado, she is okay with CPR but for short time she is okay with intubation, but does not want to remain on life-sustaining measures, review of chest x-ray does show she has a right lower lobe infiltrate, she will receive antibiotics in the emergency room, reviewed blood work EKG shows sinus tachycardia Patient was admitted to [facility] for acute hypoxic hypercarbic respiratory failure, secondary to COPD exacerbation, pneumonia requiring ICU admission, broad-spectrum antibiotic therapy, she clinically improved, continue to have intermittent wheezing, she was moved to general medical floors kept on BiPAP therapy. The morning of 08/07/2022, she continued to have some wheezing, I recommended for patient to spend another night in the hospital. Patient became extremely upset with me, got very aggressive, started swearing at me, telling me that I was not giving her antibiotics, she had a Rocephin and azithromycin bag hanging, and I advised her that she has been getting antibiotics since her hospital admission, overall she is clinically getting better, but I would recommend for close monitoring here for another day as she could not as wheezing. However she became extremely aggressive towards me, and started yelling at me telling me that I am lying, and that I am not giving her anything, that she wants to leave the hospital, I advised against this, discussed the morbidity and mortality associated with the respiratory failure she told me that she was going to leave AGAINST MEDICAL ADVICE. I discussed with her the morbidity and mortality associated with leaving the hospital AGAINST MEDICAL ADVICE, throughout this she was very aggressive towards me, was swearing at me. Patient left the hospital AGAINST MEDICAL ADVICE. I did send in 5 remaining days of antibiotics and steroids to her pharmacy, and wished her well Physical Exam Const: COMMON NORMALS: no acute distress and patient oriented x3 Resp: COMMON NORMALS: normal respiratory effort, No retractions and No use of accessory muscles AUSCULTATION: wheezes Cardio: COMMON NORMALS: regular rate, regular rhythm, S1 normal heart sound present and S2 normal heart sound present RATE: regular rate RHYTHM: regular rhythm HEART SOUNDS: S1 normal heart sound present and S2 normal heart sound present GI: COMMON NORMALS: Normal to inspection, nondistended, normoactive bowel sounds present and non-tender Extremity: COMMON NORMALS: no pedal edema Neuro: COMMON NORMALS: patient oriented x3 Psych: COMMON NORMALS: mental status grossly normal Discharge Data Studies Completed and Pending Completed Studies During Hospitalization Category Date Time Status XR chest 1V portable [id number] Routine Exams 08/06/22 07:00 Completed XR chest 1V portable [id number] Stat Exams 08/05/22 11:01 Completed Pending at discharge Category Date Time Status Blood Culture Routine Lab 08/05/22 21:13 Results Radiology Impressions Chest X-Ray 08/06/22 07:00 IMPRESSION: Stable appearance of the chest, not significantly changed from 08/05/2022 . Laboratory Results WBC 20.1 10^3/uL (4.0-10.0) H 08/07/22 05:58 RBC 4.33 10^6/uL (4.1-5.3) 08/07/22 05:58 Hgb 13.3 g/dL (11.5-15.3) 08/07/22 05:58 Hct 41.9 % (37.0-47.0) 08/07/22 05:58 MCV 96.8 fl (81-99) 08/07/22 05:58 MCH 30.7 pg (28.0-34.0) 08/07/22 05:58 MCHC 31.7 g/dL (30.0-36.0) 08/07/22 05:58 RDW 13.7 % (12.1-15.1) 08/07/22 05:58 Plt Count 355 10^3/cmm (130-400) 08/07/22 05:58 MPV 10.9 fL (7.4-10.4) H 08/07/22 05:58 Neut % (Auto) 89.3 % 08/07/22 05:58 Lymph % (Auto) 3.7 % 08/07/22 05:58 Grainger % (Auto) 6.5 % 08/07/22 05:58 Eos % (Auto) 0.0 % 08/07/22 05:58 Baso % (Auto) 0.1 % 08/07/22 05:58 Neut # (Auto) 17.92 10^3/uL (1.8-7.7) H 08/07/22 05:58 Lymph # (Auto) 0.8 10^3/uL (0.8-4.8) 08/07/22 05:58 Grainger # (Auto) 1.3 10^3/uL (0.2-0.9) H 08/07/22 05:58 Eos # (Auto) 0.0 10^3/uL (0.0-0.8) 08/07/22 05:58 Baso # (Auto) 0.0 10^3/uL (0.0-0.1) 08/07/22 05:58 Nucleated RBC % (auto) 0 % 08/07/22 05:58 Nucleated RBCs # 0.0 /100WBC 08/07/22 05:58 D-Dimer 0.50 ug/mIFEU (0-0.59) 08/05/22 10:45 Specimen Type Arterial 08/05/22 11:00 Sample Site Radial, left 08/05/22 11:00 ABG pH 7.30 (7.35-7.45) L 08/05/22 11:00 ABG pCO2 74.8 mmHg (35-45) H* 08/05/22 11:00 ABG pO2 107.0 mmHg (80.0-100.0) H 08/05/22 11:00 ABG HCO3 36.5 mmol/L (22-26) H 08/05/22 11:00 ABG Base Excess 7.3 mmol/L (-2.0-2.0) H 08/05/22 11:00 Stephen Test Pos 08/05/22 11:00 Hematocrit 40.9 % (37-47) 08/05/22 11:00 O2 Delivery Device Nc 08/05/22 11:00 O2 Liters/Min 6.0 % 08/05/22 11:00 Stock Sheets Cleaner Inspector ID Cak 08/05/22 11:00 Sodium 142 mmol/L (136-145) 08/07/22 05:58 Potassium 3.3 mmol/L (3.5-5.1) L 08/07/22 05:58 Chloride 100 mmol/L (98-107) 08/07/22 05:58 Carbon Dioxide 32 mmol/L (22-29) H 08/07/22 05:58 Anion Gap 13.3 (5-19) 08/07/22 05:58 BUN 18 mg/dL (8-23) 08/07/22 05:58 Creatinine 0.6 mg/dL (0.5-0.9) 08/07/22 05:58 GFR Calculation Not Reportable 08/07/22 05:58 Glucose 100 mg/dL (65-115) 08/07/22 05:58 Calculated Osmolality 296 mOsm/kg (285-295) H 08/07/22 05:58 Lactic Acid 1.5 mmol/L (0.5-2.2) 08/05/22 13:41 Calcium 10.0 mg/dL (8.5-10.5) 08/07/22 05:58 Phosphorus 2.6 mg/dL (2.5-4.5) 08/06/22 03:53 Magnesium 2.0 mg/dL (1.7-2.3) 08/06/22 03:53 Total Bilirubin 0.5 mg/dL (0.15-1.2) 08/06/22 03:53 AST 18 U/L (0-32) 08/06/22 03:53 ALT 8 U/L (0-33) 08/06/22 03:53 Alkaline Phosphatase 61 U/L (35-105) 08/06/22 03:53 Troponin T Baseline 9 ng/L (0-10) 08/05/22 10:45 Troponin T 120 Minute 8.11 ng/L (0-10) 08/05/22 13:41 Delta Troponin T -0.89 ABS# (0-10) L 08/05/22 13:41 NT-Pro-B Natriuret Pep 192 pg/mL (0-125) H 08/05/22 10:45 Total Protein 6.5 g/dL (6.6-8.7) L 08/06/22 03:53 Albumin 3.9 g/dL (3.5-5.2) 08/06/22 03:53 Globulin 2.6 g/dL (1.3-4.6) 08/06/22 03:53 Procalcitonin 0.02 ng/mL (0-0.5) 08/05/22 10:45 TSH 2.13 uIU/mL (0.27-4.20) 08/05/22 10:45 Urine Color Yellow (Yellow) 08/06/22 03:43 Urine Appearance Clear (CLEAR) 08/06/22 03:43 Urine pH 7 (5-7) 08/06/22 03:43 Ur Specific Walton 1.015 (1.005-1.030) 08/06/22 03:43 Urine Protein Neg (Negative) 08/06/22 03:43 Urine Glucose (UA) Norm (Normal) 08/06/22 03:43 Urine Ketones 1+ (Negative) H 08/06/22 03:43 Urine Blood Neg (Negative) 08/06/22 03:43 Urine Nitrate Negative (Negative) 08/06/22 03:43 Urine Bilirubin Neg (Negative) 08/06/22 03:43 Urine Urobilinogen Norm mg/dL (Negative) 08/06/22 03:43 Ur Leukocyte Esterase Negative (Negative) 08/06/22 03:43 Nasal Influ A H1 2009 PCR Not detected (NOT DETECT) 08/05/22 11:40 Adenovirus (PCR) Not detected (NOT DETECT) 08/05/22 11:40 C. pneumoniae DNA (PCR) Not detected (NOT DETECT) 08/05/22 11:40 Coronavirus 229E (PCR) Not detected (NOT DETECT) 08/05/22 11:40 Human Metapneumovir PCR Not detected (NOT DETECT) 08/05/22 11:40 Influenza A (H1) PCR Not detected (NOT DETECT) 08/05/22 11:40 Influenza A (H3) PCR Not detected (NOT DETECT) 08/05/22 11:40 Influenza Type A (PCR) Not detected (NOT DETECT) 08/05/22 11:40 Influenza Type B (PCR) Not detected (NOT DETECT) 08/05/22 11:40 M. pneumoniae (PCR) Not detected (NOT DETECT) 08/05/22 11:40 Parainfluenza 1 (PCR) Not detected (NOT DETECT) 08/05/22 11:40 Parainfluenza 2 (PCR) Not detected (NOT DETECT) 08/05/22 11:40 Parainfluenza 3 (PCR) Not detected (NOT DETECT) 08/05/22 11:40 Parainfluenza 4 (PCR) Not detected (NOT DETECT) 08/05/22 11:40 RSV Type A (PCR) Not detected (NOT DETECT) 08/05/22 11:40 RSV Type B (PCR) Not detected (NOT DETECT) 08/05/22 11:40 Entero/Rhino (PCR) Not detected (NOT DETECT) 08/05/22 11:40 SARS-CoV-2 (PCR) Not detected (NOT DETECT) 08/05/22 11:40 Vitals Last Vital Signs Temp 98.0 F 08/07/22 10:03 Pulse 78 08/07/22 10:03 Resp 18 05/22/23 10:03 BP 158/78 08/07/22 10:03 Pulse Ox 98 08/07/22 10:03 O2 Del Method Nasal Cannula 08/07/22 08:35 O2 Flow Rate 6 08/07/22 08:35 FiO2 28 08/07/22 03:09 Discharge Plan Discharge Patient Disposition: Left Against Medical Advice Condition: Stable Prescriptions: New prednisone 20 mg tablet 20 mg PO BID 5 Days Qty: 10 0RF amoxicillin-pot clavulanate 875-125 mg tablet 1 tab PO BID 5 Days Qty: 10 0RF Continued albuterol sulfate [Ventolin HFA] 90 mcg/actuation HFA aerosol inhaler 1 - 2 puff INHALATION Q4H PRN (Reason: Shortness Of Breath) hydrocodone-acetaminophen 10-325 mg Tablet 1 - 2 tab PO QID PRN (Reason: Pain) levothyroxine 125 mcg Tablet 125 mcg PO QAM aspirin 81 mg Tablet,Delayed Release (Dr/Ec) 81 mg PO BEDTIME ascorbic acid (vitamin C) [Vitamin C] 500 mg Tablet 500 mg PO DAILY ipratropium-albuterol 0.5 mg-3 mg(2.5 mg base)/3 mL solution for nebulization 3 ml inhalation Q6H PRN (Reason: shortness of breath or wheezing) Qty: 180 0RF Rx Instructions: until breathing returns to target peak flow/parameters Referrals: Cuauhtemoc Atkins MD [Primary Care Provider] - Discharge Diet: Regular and Cardiac Discharge Activity: Resume usual activity Discharge Attestations Time Spent in Discharge Care*: greater than 30 min Status at Discharge: Cognitive status at discharge: mildly impaired cognition , Behavioral status at discharge: can be uncooperative , Quality Metrics Clinical Quality Measures [ No reported AMI, CVA or VTE this stay] Coding Level of Care Code 38604 Total time (in minutes) for Discharge: 45 Diagnoses Chronic respiratory failure with hypoxia J96.11 COPD (chronic obstructive pulmonary disease) J44.9 Acute exacerbation of chronic obstructive airways disease J44.1 Panic attacks F41.0 Bipolar 1 disorder F31.9 Asthma-COPD overlap syndrome J44.9 Acute on chronic respiratory failure with hypoxia and hypercapnia J96.21; J96.22 Acute respiratory distress R06.03 Goals of care, counseling/discussion Z71.89 Anxiety disorder F41.9 Right lower lobe pneumonia J18.9
== END 2022-08-07 10:04 | disposition left against medical advice (07) | DRG 190 ==
LOC: ER 11:58 → ICU 15:21 → MEDSURG 08-06 00:01
PROVIDERS: Admitting Provider Family Medicine; Emergency Provider Emergency Medicine; PCP Family Medicine; Visit Provider Family Medicine
DX: J44.0 Chronic obstructive pulmonary disease with (acute) lower respiratory infection (principal); J18.9 Pneumonia, unspecified organism; J80 Acute respiratory distress syndrome; J44.1 Chronic obstructive pulmonary disease with (acute) exacerbation; Z53.29 Procedure and treatment not carried out because of patient's decision for other reasons; Z79.891 Long term (current) use of opiate analgesic; Z79.82 Long term (current) use of aspirin; Z87.891 Personal history of nicotine dependence; F41.9 Anxiety disorder, unspecified; F41.0 Panic disorder [episodic paroxysmal anxiety]; Z99.81 Dependence on supplemental oxygen; E03.9 Hypothyroidism, unspecified; F31.9 Bipolar disorder, unspecified
CPT/HCPCS: 36600; 71045; 80048; 80053; 81003; 82803; 83605; 83735; 83880; 84100; 84145; 84443; 84484; 85025; 85378; 87040; 87077; 87150; 87186; 87205; 87486; 87581; 87633; 93005; 94640; 94660; 94664; 96365; 96367; 96372; 99291; C9113; J0456; J0696; J1100; J1650; J7050; J7613; J7626

== ENCOUNTER 2022-09-03 10:09 | Observation (INO) | payer MEDICARE, SELFPAY ==
[2022-09-03] VITALS (24 sets, daily range): BP systolic 102–183; BP diastolic 52–105; PULSE 68–115; RESP 8–27; TEMP 36.4–36.7; O2SAT 93–100
--- NOTE | 2022-09-03 10:13 | W.ED.SOB ---
HPI - SOB/Dyspnea General: Chief Complaint: Shortness of Breath/Dyspnea Stated Complaint: SOB Time Seen by Provider: 09/03/22 10:13 History of Present Illness: HPI Narrative: 72-year-old lady with history of COPD and chronic hypoxic respiratory failure 6 L baseline presenting with respiratory distress. She notes onset of symptoms this morning when she woke up. She tried home treatments without significant relief. EMS found the patient to be in respiratory distress with oxygen saturations in the 80s, diffuse wheezing with diminished lung sounds. Patient administered DuoNeb x2 currently receiving the second, steroids, reportedly unremarkable EKG. Patient denies worsening cough or infectious symptoms. Denies weight gain or chest pain. History somewhat limited by severity of symptoms. No other specific changes in health, exacerbating, or alleviating factors identified. Onset (ago): hour(s) Timing: progressively worsening Severity: severe Known history of: COPD Review of Systems General: Reports: 10 or more systems reviewed and unremarkable except in HPI and below PFSH ED PFSH: Medical History Chronic respiratory failure with hypoxia COPD (chronic obstructive pulmonary disease) Panic anxiety syndrome Surgical History History of appendectomy History of cholecystectomy History of hysterectomy Hx of tonsillectomy Family History Other No pertinent family history Social History Smoking and tobacco status: former smoker Quit status (tobacco): has quit using tobacco Year quit tobacco: 2015 - 1PPD x 40 Years Alcohol intake: never Substance/Drug Use: never Lives independently: Yes Household members: none Current occupational status: disabled Pets and animals: Yes Pets & animals: dog(s) Do you think of yourself as: Straight/Heterosexual Current gender identity: Female Physical Exam Const: COMMON NORMALS: alert GENERAL APPEARANCE: cooperative and well developed HENMT: COMMON NORMALS: normocephalic and atraumatic HEAD & SCALP: normocephalic and atraumatic Eye: COMMON NORMALS: conjunctivae normal CONJUNCTIVA: Yes conjunctivae normal SCLERA: sclerae normal Neck/C-Spine: COMMON NORMALS: supple GENERAL: Yes trachea midline Resp: EFFORT & INSPECTION: Yes tachypneic and Yes respiratory distress Cardio: COMMON NORMALS: regular rhythm RATE: tachycardic RHYTHM: regular rhythm GI: COMMON NORMALS: Soft to palpation PALPATION: Yes Soft to palpation and No Tenderness to palpation present (GI) PERCUSSION: normal to percussion Extremity: GENERAL: Yes normal exam except as noted and No edema Neuro: COMMON NORMALS: moves all extremities SENSORIUM/ORIENTATION: Yes alert and No Orientation impaired Psych: COMMON NORMALS: mental status grossly normal and Normal thought process present THOUGHT PROCESS: Normal thought process present Course Vital Signs: Vital signs: Vital Signs Temperature 97.7 F 09/05/22 07:37 Pulse Rate 74 09/05/22 08:16 Respiratory Rate 22 H 09/05/22 08:16 Blood Pressure 159/84 09/05/22 07:37 Pulse Oximetry 96 09/05/22 08:16 Oxygen Delivery Me thod Nasal Cannula 09/05/22 08:16 Oxygen Flow Rate 6 09/05/22 08:16 Fraction of Inspir ed Oxygen 30 09/05/22 08:10 MDM - SOB/Dyspnea Medical Decision Making 72-year-old lady with known history of COPD and chronic hypoxic respiratory failure presenting with respiratory distress. Exam as above. Patient is nontoxic. RT to bedside and BiPAP ordered. EKG demonstrates sinus tachycardia with normal axis and intervals, no STEMI. Labs notable for no leukocytosis, normal hemoglobin and platelet count. Hypercapnic respiratory failure identified on ABG. No significant metabolic derangements. Negative range 2-hour delta troponin. Viral panel pending. Chest x-ray with no lobar consolidation or pneumothorax. The results of ED evaluation were discussed with the patient including plan for admission due to requirement for level of care not available if discharged to prevent significant worsening/deterioration. Patient agreeable with plan. Discussed with hospitalist service who was agreeable to admit patient. Medical Records I reviewed the patient's medical records. Lab Data I reviewed the patient's lab results. 09/04/22 04:00 09/04/22 04:00 Labs/Radiology: Radiology Impressions Chest X-Ray 09/03/22 10:14 IMPRESSION: No acute findings. Laboratory Results WBC 6.6 10^3/uL (4.0-10.0) 09/03/22 09:53 RBC 4.44 10^6/uL (4.1-5.3) 09/03/22 09:53 Hgb 13.8 g/dL (11.5-15.3) 09/03/22 09:53 Hct 45.3 % (37.0-47.0) 09/03/22 09:53 MCV 102.0 fl (81-99) H 09/03/22 09:53 MCH 31.1 pg (28.0-34.0) 09/03/22 09:53 MCHC 30.5 g/dL (30.0-36.0) 09/03/22 09:53 RDW 14.6 % (12.1-15.1) 09/03/22 09:53 Plt Count 330 10^3/cmm (130-400) 09/03/22 09:53 MPV 10.8 fL (7.4-10.4) H 09/03/22 09:53 Neut % (Auto) 41.2 % 09/03/22 09:53 Lymph % (Auto) 30.4 % 09/03/22 09:53 Mathews % (Auto) 12.8 % 09/03/22 09:53 Eos % (Auto) 14.3 % 09/03/22 09:53 Baso % (Auto) 0.8 % 09/03/22 09:53 Neut # (Auto) 2.72 10^3/uL (1.8-7.7) 09/03/22 09:53 Lymph # (Auto) 2.0 10^3/uL (0.8-4.8) 09/03/22 09:53 Mathews # (Auto) 0.8 10^3/uL (0.2-0.9) 09/03/22 09:53 Eos # (Auto) 0.9 10^3/uL (0.0-0.8) H 09/03/22 09:53 Baso # (Auto) 0.1 10^3/uL (0.0-0.1) 09/03/22 09:53 Nucleated RBC % (auto) 0 % 09/03/22 09:53 Nucleated RBCs # 0.0 /100WBC 09/03/22 09:53 D-Dimer 0.53 ug/mIFEU (0-0.59) 09/03/22 09:53 Specimen Type Arterial 09/03/22 10:22 Sample Site Radial, left 09/03/22 10:22 ABG pH 7.32 (7.35-7.45) L 09/03/22 10:22 ABG pCO2 67.2 mmHg (35-45) H* 09/03/22 10:22 ABG pO2 92.2 mmHg (80.0-100.0) 09/03/22 10:22 ABG HCO3 34.5 mmol/L (22-26) H 09/03/22 10:22 ABG O2 Saturation 97.6 09/03/22 10:22 ABG Base Excess 6.2 mmol/L (-2.0-2.0) H 09/03/22 10:22 Stephen Test Pos 09/03/22 10:22 A-a O2 Gradient 5.0 mmHg (5-10) 09/03/22 10:22 Hematocrit 40.2 % (37-47) 09/03/22 10:22 Hgb O2 Saturation 96.1 % (95-100) 09/03/22 10:22 Carboxyhemoglobin 0.9 %THgb (0.4-20.1) 09/03/22 10:22 Methemoglobin 0.6 % (0.4-1.5) 09/03/22 10:22 Total Hemoglobin 13.1 g/dL (12-16) 09/03/22 10:22 Sodium 143.0 mmol/L (131-143) 09/03/22 10:22 Potassium 4.1 mmol/L (3.5-5.0) 09/03/22 10:22 Glucose 124.0 mg/dL (70-115) H 09/03/22 10:22 Ionized Calcium 1.3 mmol/L (1.1-1.4) 09/03/22 10:22 O2 Delivery Device Bipap 09/03/22 10:22 FiO2 30.0 % 09/03/22 10:22 Merchandise Presentation Associate ID Caak 09/03/22 10:22 Sodium 144 mmol/L (136-145) 09/03/22 09:53 Potassium 4.5 mmol/L (3.5-5.1) 09/03/22 09:53 Chloride 100 mmol/L (98-107) 09/03/22 09:53 Carbon Dioxide 35 mmol/L (22-29) H 09/03/22 09:53 Anion Gap 13.5 (5-19) 09/03/22 09:53 BUN 13 mg/dL (8-23) 09/03/22 09:53 Creatinine 0.5 mg/dL (0.5-0.9) 09/03/22 09:53 GFR Calculation Not Reportable 09/03/22 09:53 Glucose 101 mg/dL (65-115) 09/03/22 09:53 Calculated Osmolality 298 mOsm/kg (285-295) H 09/03/22 09:53 Calcium 9.8 mg/dL (8.5-10.5) 09/03/22 09:53 Total Bilirubin 0.2 mg/dL (0.15-1.2) 09/03/22 09:53 AST 15 U/L (0-32) 09/03/22 09:53 ALT 8 U/L (0-33) 09/03/22 09:53 Alkaline Phosphatase 94 U/L (35-105) 09/03/22 09:53 Troponin T Baseline 9 ng/L (0-10) 09/03/22 09:53 NT-Pro-B Natriuret Pep 164 pg/mL (0-125) H 09/03/22 09:53 Total Protein 6.1 g/dL (6.6-8.7) L 09/03/22 09:53 Albumin 4.1 g/dL (3.5-5.2) 09/03/22 09:53 Globulin 2.0 g/dL (1.3-4.6) 09/03/22 09:53 Procalcitonin 0.02 ng/mL (0-0.5) 09/03/22 09:53 Nasal Influ A H1 2009 PCR Not detected (NOT DETECT) 09/03/22 10:23 Adenovirus (PCR) Not detected (NOT DETECT) 09/03/22 10:23 C. pneumoniae DNA (PCR) Not detected (NOT DETECT) 09/03/22 10:23 Coronavirus 229E (PCR) Not detected (NOT DETECT) 09/03/22 10:23 Human Metapneumovir PCR Not detected (NOT DETECT) 09/03/22 10:23 Influenza A (H1) PCR Not detected (NOT DETECT) 09/03/22 10:23 Influenza A (H3) PCR Not detected (NOT DETECT) 09/03/22 10:23 Influenza Type A (PCR) Not detected (NOT DETECT) 09/03/22 10:23 Influenza Type B (PCR) Not detected (NOT DETECT) 09/03/22 10:23 M. pneumoniae (PCR) Not detected (NOT DETECT) 09/03/22 10:23 Parainfluenza 1 (PCR) Not detected (NOT DETECT) 09/03/22 10:23 Parainfluenza 2 (PCR) Not detected (NOT DETECT) 09/03/22 10:23 Parainfluenza 3 (PCR) Not detected (NOT DETECT) 09/03/22 10:23 Parainfluenza 4 (PCR) Not detected (NOT DETECT) 09/03/22 10:23 RSV Type A (PCR) Not detected (NOT DETECT) 09/03/22 10:23 RSV Type B (PCR) Not detected (NOT DETECT) 09/03/22 10:23 Entero/Rhino (PCR) Not detected (NOT DETECT) 09/03/22 10:23 SARS-CoV-2 (PCR) Not detected (NOT DETECT) 09/03/22 10:23 Critical Care Time Critical Care Time: Critical Care Time: Yes Total Critical Care Time: 35 Attestation: Due to a high probability of clinically significant, possibly life threatening deterioration, the patient required my highest level of attention and preparedness to intervene emergently and I personally spent this critical care time directly and personally managing the patient. This critical care time included obtaining a history; examining the patient; pulse oximetry; ordering and review of laboratory and imaging studies; arranging urgent treatment with development of a management plan; evaluation of patient's response to treatment; frequent reassessment; and, discussions with other providers as applicable. It was exclusive of separately billable procedures. Primary system involved is respiratory Discharge Plan Discharge Patient Disposition: Admitted As Inpatient Admit Provider: Santi Oquendo Clinical Impression: Acute respiratory distress, Acute exacerbation of chronic obstructive airways disease, Acute on chronic respiratory failure with hypoxia and hypercapnia Condition: Stable Coding Level of Care Code ED Retail Sales Advisor for Ji Melgar
--- NOTE | 2022-09-03 10:14 | ECG_ITS ---
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 Measurements Intervals [place] Rate: 106 P: 85 [place]: 130 QRS: 65 QRSD: 77 T: 80 QT: 321 QTc: 428 Interpretive Statements SINUS TACHYCARDIA POSSIBLE RIGHT VENTRICULAR CONDUCTION DELAY [RSR (QR) IN V1/V2] ABNORMAL RHYTHM ECG Compared to ECG 08/05/2022 16:14:14 No significant changes Electronically Signed On 09-04-2022 7:58:30 CDT by Jamaal Drummond M.D. [id number]
--- NOTE | 2022-09-03 10:14 | XRR_ITS ---
PROCEDURE INFORMATION: Exam: XR Chest Exam date and time: 09/03/2022 10:26 AM Age: 72 years old Clinical indication: Shortness of breath; Additional info: Resp distress TECHNIQUE: Imaging protocol: Radiologic exam of the chest. Views: 1 view. COMPARISON: CR (CHEST, ) 08/06/2022 7:50 AM FINDINGS: Lungs: There is no consolidation. Small calcified granulomas are suspected in both lungs. Pleural spaces: There is no pleural effusion or pneumothorax. Heart/Mediastinum: Cardiomediastinal contours are unremarkable. Bones/joints: Bones are unremarkable. XR/XR chest 1V portable [id number] IMPRESSION: No acute findings.
[2022-09-03] MEDS: albuterol 2.5 mg/3 mL Neb INHALATION ×2 (10:21→11:52)
[2022-09-03 10:28] LABS: Basophils # 0.1 10^3/uL (0.0-0.1); Basophils % 0.8 %; Eosinophils # 0.9 10^3/uL (0.0-0.8); Eosinophils % 14.3 %; Hematocrit 45.3 % (37.0-47.0); Hemoglobin 13.8 g/dL (11.5-15.3); Lymphocytes % 30.4 %; Mean Corpuscular HGB Conc 30.5 g/dL (30.0-36.0); Mean Corpuscular Hemoglobin 31.1 pg (28.0-34.0); Mean Platelet Volume 10.8 fL (7.4-10.4); Monocytes # 0.8 10^3/uL (0.2-0.9); Monocytes % 12.8 %; Neutrophils # 2.72 10^3/uL (1.8-7.7); Neutrophils % 41.2 %; Nucleated Red Blood Cells % 0 %; Platelet Count 330 10^3/cmm (130-400); Red Blood Count 4.44 10^6/uL (4.1-5.3); Red Cell Distribution Width 14.6 % (12.1-15.1); White Blood Count 6.6 10^3/uL (4.0-10.0)
[2022-09-03 10:33] LABS: ABG PCO2 67.2 mmHg (35-45); ABG PH Result 7.32 (7.35-7.45); Arterial Blood Gas Hematocrit 40.2 % (37-47); Base Excess ABG 6.2 mmol/L (-2.0-2.0); Blood Gas Allen Test Pos; Blood Gas Operator Identificat CAAK; Blood Gas Sample Site Radial, left; Blood Gas Sample Type Arterial; Carboxyhemoglobin 0.9 %THgb (0.4-20.1); HCO3 ABG 34.5 mmol/L (22-26); HGB O2 Sat 96.1 % (95-100); Ionized Calcium Level - ABG 1.3 mmol/L (1.1-1.4); Methemoglobin 0.6 % (0.4-1.5); Oxygen Device BIPAP; Oxygen Saturation ABG 97.6; PO2 ABG 92.2 mmHg (80.0-100.0); Potassium Level - ABG 4.1 mmol/L (3.5-5.0); Total Hemoglobin 13.1 g/dL (12-16)
[2022-09-03 10:55] LABS: Troponin(5th) Baseline 9 ng/L (0-10)
[2022-09-03 11:02] LABS: Alanine Aminotransferase 8 U/L (0-33); Albumin Level 4.1 g/dL (3.5-5.2); Alkaline Phosphatase 94 U/L (35-105); Aspartate Amino Transferase 15 U/L (0-32); Blood Urea Nitrogen 13 mg/dL (8-23); Calcium 9.8 mg/dL (8.5-10.5); Carbon Dioxide 35 mmol/L (22-29); Chloride 100 mmol/L (98-107); Glucose 101 mg/dL (65-115); NT Pro B Type Natriuretic Pept 164 pg/mL (0-125); Osmolality Calculated 298 mOsm/kg (285-295); Sodium 144 mmol/L (136-145); Total Bilirubin 0.2 mg/dL (0.15-1.2); Total Protein 6.1 g/dL (6.6-8.7)
[2022-09-03 11:13] LABS: Anion Gap 13.5 (5-19); Potassium 4.5 mmol/L (3.5-5.1)
[2022-09-03] MEDS: doxycycline 100 MG in sodium chloride 0.9% (plus) 100 ML IV (11:31)
[2022-09-03 12:14] LABS: Adenovirus Not Detected (NOT DETECT); Chlamydia Pneumoniae Not Detected (NOT DETECT); Coronavirus 229E,HKU1,NL63,OC4 Not Detected (NOT DETECT); Human Metapneumovirus Not Detected (NOT DETECT); Human Rhinovirus/Enterovirus Not Detected (NOT DETECT); Influenza A Not Detected (NOT DETECT); Influenza A H1 Not Detected (NOT DETECT); Influenza A H1-2009 Not Detected (NOT DETECT); Influenza A H3 Not Detected (NOT DETECT); Influenza B Not Detected (NOT DETECT); Mycoplasma Pneumoniae Not Detected (NOT DETECT); Parainfluenza Virus Type 1 Not Detected (NOT DETECT); Parainfluenza Virus Type 2 Not Detected (NOT DETECT); Parainfluenza Virus Type 3 Not Detected (NOT DETECT); Parainfluenza Virus Type 4 Not Detected (NOT DETECT); Respiratory Syncytial Virus A Not Detected (NOT DETECT); Respiratory Syncytial Virus B Not Detected (NOT DETECT); SARS-COV-2 Not Detected (NOT DETECT)
--- NOTE | 2022-09-03 12:14 | ECG_ITS ---
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 Measurements Intervals [place] Rate: 72 P: 40 NE: 91 QRS: 71 QRSD: 80 T: 78 QT: 393 QTc: 431 Interpretive Statements SINUS RHYTHM WITH SHORT NE INTERVAL POSSIBLE RIGHT VENTRICULAR CONDUCTION DELAY [RSR (QR) IN V1/V2] Compared to ECG 09/03/2022 10:35:36 Short NE interval now present Sinus tachycardia no longer present Electronically Signed On 09-04-2022 8:02:44 CDT by Jamaal Drummond M.D. [id number]
[2022-09-03 12:28] LABS: Troponin 5 2HR 9.04 ng/L (0-10)
[2022-09-03 13:15] LABS: Troponin 5 2HR Delta 0.04 ABS# (0-10)
--- NOTE | 2022-09-03 13:20 | PM.HP ---
Providers/Chief Complaint Primary Care Provider: Cuauhtemoc Atkins MD Chief Complaint: SOB History of Present Illness Socorro Montes De Oca is a 72 year old female with a past medical of COPD, quit smoking in 2004, anxiety, panic disorder, chronic oxygen dependency on 6 L, panic anxiety syndrome, hypothyroidism, on chronic opiate therapy, who presents [facility] due to shortness of breath. Patient was seen roughly a month ago for similar complaint when she left AMA, in the ER she has been diagnosed with acute hypoxic hypercarbic respiratory failure requiring BiPAP, pH 7.32 PCO2 above 60 That she she has been experiencing shortness of breath for quite some time she has not noticed any fever, excessive productive cough, she does not use any BiPAP or CPAP at home, uses inhalers along oxygen Review of Systems Const: Denies: fever(s) Eyes: Denies: change in vision ENMT: Denies: throat pain Card: Denies: chest pain Resp: Reports: dyspnea GI: Denies: abdominal pain : Denies: flank pain Musc: Denies: neck pain Medications/Allergies Home Medications Medication Instructions Recorded Confirmed Last Taken Type albuterol sulfate 90 mcg/actuation 1 - 2 puff inhalation Q4H PRN 08/21/19 09/03/22 Unknown History aerosol inhaler (Ventolin HFA) Shortness Of Breath hydrocodone 10 mg-acetaminophen 1 - 2 tab PO QID PRN Pain 02/07/22 09/03/22 09/02/22 History 325 mg tablet ascorbic acid (vitamin C) 500 mg 500 mg PO DAILY 03/08/22 09/03/22 09/02/22 History tablet (Vitamin C) aspirin 81 mg tablet,delayed 81 mg PO BEDTIME 03/08/22 09/03/22 09/02/22 History release ipratropium 0.5 mg-albuterol 3 mg 3 ml inhalation Q6H PRN shortness 03/10/22 09/03/22 Unknown Rx (2.5 mg base)/3 mL nebulization of breath or wheezing #180 mL soln levothyroxine 125 mcg tablet 125 mcg PO QAM 04/23/22 09/03/22 09/02/22 History amoxicillin 400 mg-potassium 10 ml PO BID 09/03/22 09/03/22 09/02/22 History clavulanate 57 mg/5 mL oral suspension fluoxetine 40 mg capsule 40 mg PO DAILY 09/03/22 09/03/22 09/02/22 History prednisolone sodium phosphate 15 See Rx Instructions .Route .COMPLEX 09/03/22 09/03/22 09/02/22 History mg/5 mL (3 mg/mL) oral solution quetiapine 50 mg tablet 50 mg PO DAILY 09/03/22 09/03/22 09/02/22 History Allergies Allergy/AdvReac Type Severity Reaction Status Date / Time olanzapine [From Zyprexa] Allergy Severe edema Verified 07/05/22 03:43 PFSH Acute PFSH: Medical History Chronic respiratory failure with hypoxia COPD (chronic obstructive pulmonary disease) Panic anxiety syndrome Surgical History History of appendectomy History of cholecystectomy History of hysterectomy Hx of tonsillectomy Family History Other No pertinent family history Social History Smoking and tobacco status: former smoker Quit status (tobacco): has quit using tobacco Year quit tobacco: 2015 - 1PPD x 40 Years Alcohol intake: never Substance/Drug Use: never Lives independently: Yes Household members: none Current occupational status: disabled Pets and animals: Yes Pets & animals: dog(s) Do you think of yourself as: Straight/Heterosexual Current gender identity: Female Vitals/I&O/Wt Last Vital Signs Temp 98.0 F 09/03/22 10:10 Pulse 68 09/03/22 13:00 Resp 10 L 09/03/22 13:00 BP 113/52 09/03/22 13:00 Pulse Ox 95 09/03/22 13:00 O2 Del Method BiPAP 09/03/22 11:50 FiO2 30 09/03/22 11:50 Weight last 48 hrs Weight 68.039 kg Physical Exam Narrative: Awake and alert Euvolemic Currently on BiPAP Patient is upset because she has not received her hydrocodone S1, S2 Currently on BiPAP Tachycardic Tachypnea has resolved No active wheezing No signs of edema Irritable Anxious appearing Data 09/03/22 09:53 09/03/22 09:53 A&P Assessment and plan (1) Acute respiratory distress: (2) Acute on chronic respiratory failure with hypoxia and hypercapnia: (3) Acute exacerbation of chronic obstructive airways disease: (4) Panic attacks: (5) Asthma-COPD overlap syndrome: Plan Acute COPD exacerbation Hypoxic hypercarbic respiratory failure Currently requiring BiPAP I will obtain pulse ox overnight, she might qualify for trilogy/BiPAP at home Patient seems to be noncompliant Add budesonide Repeat ABG on stat basis in next 20 the morning Patient has neck pain and shoulder pain for which she takes hydrocodone which I will resume at this point Closer monitoring in case of any respiratory depression For tonight I will keep her on BiPAP all night Bipolar disorder continue fluoxetine Asthma/COPD overlap syndrome I do not hear any wheezing DNR/DNI goals of care discussed with the patient She can have cardiac diet Quetiapine for tonight continue levothyroxine for her hypothyroidism Attestations Medical Necessity Statement*: Less than 2 midnights anticipated for management of acute COPD exacerbation Diagnoses Acute respiratory distress R06.03 Acute on chronic respiratory failure with hypoxia and hypercapnia J96.21; J96.22 Acute exacerbation of chronic obstructive airways disease J44.1 Panic attacks F41.0 Asthma-COPD overlap syndrome J44.9
[2022-09-03 14:09] LABS: D Dimer 0.53 ug/mIFEU (0-0.59)
[2022-09-03 14:20] LABS: Procalcitonin 0.02 ng/mL (0-0.5)
[2022-09-03 16:19] LABS: Troponin 5 6HR 7.98 ng/L (0-10)
[2022-09-03 16:23] LABS: Troponin 5 6HR Delta -1.02 ng/L (0-12)
[2022-09-03] MEDS: ipratropium-albuterol 3 mL Neb INHALATION ×2 (17:31→20:42)
[2022-09-03] MEDS: morphine IR 15 mg Tablet PO (17:46)
[2022-09-03] MEDS: HYDROcodone-acetaminophen 10-325 mg Tablet 1 TAB PO (19:48)
[2022-09-03] MEDS: budesonide 0.5 mg/2 mL Neb INHALATION (20:42)
[2022-09-04] VITALS (16 sets, daily range): BP systolic 115–184; BP diastolic 66–99; PULSE 70–107; RESP 13–24; TEMP 36.4–37; O2SAT 86–100
[2022-09-04] MEDS: ipratropium-albuterol 3 mL Neb INHALATION ×4 (02:13→19:32)
[2022-09-04 04:59] LABS: Basophils % 0.1 %; Eosinophils % 0.1 %; Hematocrit 40.7 % (37.0-47.0); Hemoglobin 13.1 g/dL (11.5-15.3); Lymphocytes # 0.5 10^3/uL (0.8-4.8); Lymphocytes % 5.3 %; Mean Corpuscular HGB Conc 32.2 g/dL (30.0-36.0); Mean Corpuscular Volume 99.5 fl (81-99); Mean Platelet Volume 11.1 fL (7.4-10.4); Monocytes # 0.3 10^3/uL (0.2-0.9); Monocytes % 3.7 %; Neutrophils # 7.75 10^3/uL (1.8-7.7); Neutrophils % 90.4 %; Nucleated Red Blood Cells % 0 %; Platelet Count 321 10^3/cmm (130-400); Red Blood Count 4.09 10^6/uL (4.1-5.3); Red Cell Distribution Width 14.6 % (12.1-15.1); White Blood Count 8.6 10^3/uL (4.0-10.0)
[2022-09-04] MEDS: HYDROcodone-acetaminophen 10-325 mg Tablet 1 TAB PO ×4 (05:10→23:57)
[2022-09-04] MEDS: levothyroxine 125 mcg Tablet PO (05:10)
[2022-09-04 05:23] LABS: Anion Gap 12.2 (5-19); Blood Urea Nitrogen 13 mg/dL (8-23); Calcium 9.4 mg/dL (8.5-10.5); Carbon Dioxide 32 mmol/L (22-29); Chloride 100 mmol/L (98-107); Glucose 107 mg/dL (65-115); Osmolality Calculated 291 mOsm/kg (285-295); Potassium 4.2 mmol/L (3.5-5.1); Sodium 140 mmol/L (136-145)
--- NOTE | 2022-09-04 12:48 | PM.PN ---
Subjective Subjective: This morning patient is on 6 L nasal cannula Trying to arrange trilogy for her It is very prudent to prevent readmissions, respiratory acidosis, she is high risk for readmissions and intubation She is hypercapnic, hypoxic pulse ox showed hypoxia, Vitals/I&O/Wt Last Vital Signs Temp 98.0 F 09/04/22 11:37 Pulse 87 09/04/22 11:37 Resp 17 09/04/22 11:37 BP 115/68 09/04/22 11:37 Pulse Ox 100 09/04/22 11:37 O2 Del Method Nasal Cannula 09/04/22 09:04 O2 Flow Rate 6 09/04/22 09:04 FiO2 30 09/04/22 08:56 09/03/22 09/04/22 09/04/22 22:59 06:59 14:59 Intake Total 160 / 160 240 / 240 Balance 160 / 160 240 / 240 Weight last 48 hrs Weight 68.039 kg Physical Exam Narrative: Awake and alert No active wheezing Abdomen soft No edema Is not cooperative Currently on 6 L nasal cannula Afebrile Nonfocal neuro exam Data 09/04/22 04:00 09/04/22 04:00 A&P Assessment and plan (1) Acute respiratory distress: (2) Acute on chronic respiratory failure with hypoxia and hypercapnia: (3) Acute exacerbation of chronic obstructive airways disease: Plan Acute COPD exacerbation Trying to arrange trilogy for her We will recommend tidal volume 450 with respiratory rate 14-16 EPAP 8-10 IPAP 12-14 FiO2 50 to 60% We will add biliary, Spiriva and Advair along DuoNeb at discharge No active pneumonia Patient has revoked hospice with [facility] DNR/DNI Attestations Medical Necessity Statement*: Planning discharge today Coding Level of Care Code Acute Code for [facility] Fwd Diagnoses Acute respiratory distress R06.03 Acute on chronic respiratory failure with hypoxia and hypercapnia J96.21; J96.22 Acute exacerbation of chronic obstructive airways disease J44.1
[2022-09-04] MEDS: budesonide 0.5 mg/2 mL Neb INHALATION (19:32)
[2022-09-05 01:03] VITALS: PULSE 83; RESP 28; O2SAT 98
[2022-09-05] MEDS: ipratropium-albuterol 3 mL Neb INHALATION ×2 (01:03→08:06)
[2022-09-05 03:15] VITALS: BP 150/73; PULSE 80; RESP 17; TEMP 36.4; O2SAT 100
[2022-09-05] MEDS: HYDROcodone-acetaminophen 10-325 mg Tablet 1 TAB PO (04:03)
[2022-09-05 06:16] VITALS: PULSE 77
[2022-09-05 07:37] VITALS: BP 159/84; PULSE 99; RESP 19; TEMP 36.5; O2SAT 97
[2022-09-05] MEDS: budesonide 0.5 mg/2 mL Neb INHALATION (08:07)
[2022-09-05 08:10] VITALS: PULSE 70; RESP 20; O2SAT 98
[2022-09-05 08:16] VITALS: PULSE 74; RESP 22; O2SAT 96
--- NOTE | 2022-09-05 10:46 | PC.NURSE ---
Pt Behavior: Pt approached rear side of nurse's station yelling, cursing, and demanding to see the doctor. This nurse attempted to deescalate pt in a calm and reassuring manner. Pt did not respond well. Pt continued yelling and cursing at staff and attempted to hit this nurse with her oxygen tubing. This nurse continued to attempt to deescalate pt but was unsuccessful. Pt continued walking around the nurse's station cursing and demanding to see the doctor. Pt began to push over computer screens and attempt to throwing objects that were on the ledge of the nurse's station. Code 10 called by JANELL Roberts (charge nurse). Multiple staff responded to code. As a team, staff was able to walk with pt to her room and deescalate pt with a hands free approach. Dr. Oquendo notified. Will continue to monitor.
--- NOTE | 2022-09-05 10:52 | PM.DCS ---
Discharge Providers Date of Admission: 09/03/22 11:47 Date of Discharge: September 05, 2022 Attending Provider at Admission: Santi Oquendo MD Attending Provider at Discharge: Santi Oquendo MD Primary Care Provider: Cuauhtemoc Atkins MD Diagnoses at Discharge Discharge Diagnosis (1) Acute respiratory distress: Status: Acute (2) Acute on chronic respiratory failure with hypoxia and hypercapnia: Status: Acute (3) Acute exacerbation of chronic obstructive airways disease: Status: Acute (4) Panic attacks: Status: Acute (5) Asthma-COPD overlap syndrome: Status: Acute Reason for Visit Reason for Visit: SOB Hospital Course Hospital Course 72-year-old female with history of COPD, noncompliant, uses 6 L l of oxygen at baseline, presented to hospital for worsening of shortness of breath, patient is stating that she uses oxygen on as-needed basis at nighttime, she was hypercapnic with respiratory acidosis, she was put on BiPAP which improved her work of breathing and improved her symptoms. Pulse ox overnight did show hypoxia, she would qualify for trilogy/noninvasive ventilator which is prudent to improve her work of breathing and shortness of breath otherwise she will experience recurrent admissions, if her hypercapnia gets worse she might get intubated patient is stating that she is DNI/DNI she has no medical power of mergers and acquisitions attorney and she does not want to appoint anyone, she has revoked her hospice with [facility] and would like to continue with medical therapy along trilogy. D-dimer unremarkable, no leukocytosis, she remained afebrile, she has refused to get another ABG I am not sure how much she has improved from her initial presentation of hypercapnic respiratory acidosis. She is high risk for readmissions, with noninvasive ventilator settings I would recommend tidal volume 450 mL, IPAP 12-14, EPAP 8-10, FiO2 60 to 70%, respiratory rate 14 While we were waiting for the trilogy approval patient wanted to leave AGAINST MEDICAL ADVICE, she was very hateful l towards the staff and the physician, code 10 was called, I did tell her that there is a plan to discharge her today which is making sure she gets approval for the trilogy, Physical Exam Narrative: Alert No active wheezing S1, S2 Currently on 6 L nasal cannula Abdomen soft No signs of edema Discharge Data Studies Completed and Pending Completed Studies During Hospitalization Category Date Time Status XR chest 1V portable [id number] Stat Exams 09/03/22 10:14 Completed Pending at discharge Category Date Time Status MRSA by PCR Stat Lab 09/03/22 22:00 Received Radiology Impressions Chest X-Ray 09/03/22 10:14 IMPRESSION: No acute findings. Laboratory Results WBC 8.6 10^3/uL (4.0-10.0) 09/04/22 04:00 RBC 4.09 10^6/uL (4.1-5.3) L 09/04/22 04:00 Hgb 13.1 g/dL (11.5-15.3) 09/04/22 04:00 Hct 40.7 % (37.0-47.0) 09/04/22 04:00 MCV 99.5 fl (81-99) H 09/04/22 04:00 MCH 32.0 pg (28.0-34.0) 09/04/22 04:00 MCHC 32.2 g/dL (30.0-36.0) D 09/04/22 04:00 RDW 14.6 % (12.1-15.1) 09/04/22 04:00 Plt Count 321 10^3/cmm (130-400) 09/04/22 04:00 MPV 11.1 fL (7.4-10.4) H 09/04/22 04:00 Neut % (Auto) 90.4 % 09/04/22 04:00 Lymph % (Auto) 5.3 % 09/04/22 04:00 [place] % (Auto) 3.7 % 09/04/22 04:00 Eos % (Auto) 0.1 % 09/04/22 04:00 Baso % (Auto) 0.1 % 09/04/22 04:00 Neut # (Auto) 7.75 10^3/uL (1.8-7.7) H 09/04/22 04:00 Lymph # (Auto) 0.5 10^3/uL (0.8-4.8) L 09/04/22 04:00 [place] # (Auto) 0.3 10^3/uL (0.2-0.9) 09/04/22 04:00 Eos # (Auto) 0.0 10^3/uL (0.0-0.8) 09/04/22 04:00 Baso # (Auto) 0.0 10^3/uL (0.0-0.1) 09/04/22 04:00 Nucleated RBC % (auto) 0 % 09/04/22 04:00 Nucleated RBCs # 0.0 /100WBC 09/04/22 04:00 D-Dimer 0.53 ug/mIFEU (0-0.59) 09/03/22 09:53 Specimen Type Arterial 09/03/22 10:22 Sample Site Radial, left 09/03/22 10:22 ABG pH 7.32 (7.35-7.45) L 09/03/22 10:22 ABG pCO2 67.2 mmHg (35-45) H* 09/03/22 10:22 ABG pO2 92.2 mmHg (80.0-100.0) 09/03/22 10:22 ABG HCO3 34.5 mmol/L (22-26) H 09/03/22 10:22 ABG O2 Saturation 97.6 09/03/22 10:22 ABG Base Excess 6.2 mmol/L (-2.0-2.0) H 09/03/22 10:22 Stephen Test Pos 09/03/22 10:22 A-a O2 Gradient 5.0 mmHg (5-10) 09/03/22 10:22 Hematocrit 40.2 % (37-47) 09/03/22 10:22 Hgb O2 Saturation 96.1 % (95-100) 09/03/22 10:22 Carboxyhemoglobin 0.9 %THgb (0.4-20.1) 09/03/22 10:22 Methemoglobin 0.6 % (0.4-1.5) 09/03/22 10:22 Total Hemoglobin 13.1 g/dL (12-16) 09/03/22 10:22 Sodium 143.0 mmol/L (131-143) 09/03/22 10:22 Potassium 4.1 mmol/L (3.5-5.0) 09/03/22 10:22 Glucose 124.0 mg/dL (70-115) H 09/03/22 10:22 Ionized Calcium 1.3 mmol/L (1.1-1.4) 09/03/22 10:22 O2 Delivery Device Bipap 09/03/22 10:22 FiO2 30.0 % 09/03/22 10:22 Filemaker Developer ID [place] 09/03/22 10:22 Sodium 140 mmol/L (136-145) 09/04/22 04:00 Potassium 4.2 mmol/L (3.5-5.1) 09/04/22 04:00 Chloride 100 mmol/L (98-107) 09/04/22 04:00 Carbon Dioxide 32 mmol/L (22-29) H 09/04/22 04:00 Anion Gap 12.2 (5-19) 09/04/22 04:00 BUN 13 mg/dL (8-23) 09/04/22 04:00 Creatinine 0.4 mg/dL (0.5-0.9) L 09/04/22 04:00 GFR Calculation Not Reportable 09/04/22 04:00 Glucose 107 mg/dL (65-115) 09/04/22 04:00 Calculated Osmolality 291 mOsm/kg (285-295) 09/04/22 04:00 Calcium 9.4 mg/dL (8.5-10.5) 09/04/22 04:00 Magnesium 2.0 mg/dL (1.7-2.3) 09/04/22 04:00 Total Bilirubin 0.2 mg/dL (0.15-1.2) 09/03/22 09:53 AST 15 U/L (0-32) 09/03/22 09:53 ALT 8 U/L (0-33) 09/03/22 09:53 Alkaline Phosphatase 94 U/L (35-105) 09/03/22 09:53 Troponin T Baseline 9 ng/L (0-10) 09/03/22 09:53 Troponin T 120 Minute 9.04 ng/L (0-10) 09/03/22 11:59 Delta Troponin T 0.04 ABS# (0-10) 09/03/22 11:59 Troponin T Hi Sens 6Hr 7.98 ng/L (0-10) 09/03/22 15:44 Troponin T Hi Sens 6Hr Delta -1.02 ng/L (0-12) L 09/03/22 15:44 C-Reactive Protein 3.0 mg/L (0.0-4.9) 09/04/22 04:00 NT-Pro-B Natriuret Pep 164 pg/mL (0-125) H 09/03/22 09:53 Total Protein 6.1 g/dL (6.6-8.7) L 09/03/22 09:53 Albumin 4.1 g/dL (3.5-5.2) 09/03/22 09:53 Globulin 2.0 g/dL (1.3-4.6) 09/03/22 09:53 Procalcitonin 0.02 ng/mL (0-0.5) 09/03/22 09:53 Nasal Influ A H1 2009 PCR Not detected (NOT DETECT) 09/03/22 10:23 Adenovirus (PCR) Not detected (NOT DETECT) 09/03/22 10:23 C. pneumoniae DNA (PCR) Not detected (NOT DETECT) 09/03/22 10:23 Coronavirus 229E (PCR) Not detected (NOT DETECT) 09/03/22 10:23 Human Metapneumovir PCR Not detected (NOT DETECT) 09/03/22 10:23 Influenza A (H1) PCR Not detected (NOT DETECT) 09/03/22 10:23 Influenza A (H3) PCR Not detected (NOT DETECT) 09/03/22 10:23 Influenza Type A (PCR) Not detected (NOT DETECT) 09/03/22 10:23 Influenza Type B (PCR) Not detected (NOT DETECT) 09/03/22 10:23 M. pneumoniae (PCR) Not detected (NOT DETECT) 09/03/22 10:23 Parainfluenza 1 (PCR) Not detected (NOT DETECT) 09/03/22 10:23 Parainfluenza 2 (PCR) Not detected (NOT DETECT) 09/03/22 10:23 Parainfluenza 3 (PCR) Not detected (NOT DETECT) 09/03/22 10:23 Parainfluenza 4 (PCR) Not detected (NOT DETECT) 09/03/22 10:23 RSV Type A (PCR) Not detected (NOT DETECT) 09/03/22 10:23 RSV Type B (PCR) Not detected (NOT DETECT) 09/03/22 10:23 Entero/Rhino (PCR) Not detected (NOT DETECT) 09/03/22 10:23 SARS-CoV-2 (PCR) Not detected (NOT DETECT) 09/03/22 10:23 Vitals Last Vital Signs Temp 98.0 F 06/19/23 11:37 Pulse 87 09/04/22 11:37 Resp 17 09/04/22 11:37 BP 115/68 09/04/22 11:37 Pulse Ox 100 09/04/22 11:37 O2 Del Method Nasal Cannula 09/04/22 09:04 O2 Flow Rate 6 09/04/22 09:04 FiO2 30 09/04/22 08:56 Discharge Plan Discharge Patient Disposition: Home Condition: Stable Prescriptions: New Yupelri 175 mcg/3 mL solution for nebulization 175 mcg inhalation DAILY Qty: 21 3RF budesonide-formoterol [Symbicort] 80-4.5 mcg/actuation HFA aerosol inhaler 1 inh inhalation BID Qty: 10.2 3RF ipratropium-albuterol 0.5 mg-3 mg(2.5 mg base)/3 mL solution for nebulization 3 ml inhalation Q8H PRN (Reason: shortness of breath or wheezing) Qty: 90 4RF Spiriva Respimat 1.25 mcg/actuation mist 2 inh inhalation DAILY Qty: 4 3RF Continued albuterol sulfate [Ventolin HFA] 90 mcg/actuation HFA aerosol inhaler 1 - 2 puff INHALATION Q4H PRN (Reason: Shortness Of Breath) hydrocodone-acetaminophen 10-325 mg Tablet 1 - 2 tab PO QID PRN (Reason: Pain) levothyroxine 125 mcg Tablet 125 mcg PO QAM aspirin 81 mg Tablet,Delayed Release (Dr/Ec) 81 mg PO BEDTIME ascorbic acid (vitamin C) [Vitamin C] 500 mg Tablet 500 mg PO DAILY ipratropium-albuterol 0.5 mg-3 mg(2.5 mg base)/3 mL solution for nebulization 3 ml inhalation Q6H PRN (Reason: shortness of breath or wheezing) Qty: 180 0RF Rx Instructions: until breathing returns to target peak flow/parameters fluoxetine 40 mg capsule 40 mg PO DAILY prednisolone sodium phosphate 15 mg/5 mL (3 mg/mL) solution See Rx Instructions .ROUTE .COMPLEX Rx Instructions: mg as directed quetiapine 50 mg tablet 50 mg PO DAILY Discontinued amoxicillin-pot clavulanate 400-57 mg/5 mL suspension for reconstitution 10 ml PO BID Discharge Orders: Discharge Order (Routine); Ordered 09/05/22 Ordered By: Santi Oquendo Other Ambulatory Orders: DME: Non-Invasive Vent (Order) Location: None Selected Ordered By: Santi Oquendo DME: Oxygen (Order) Location: None Selected Ordered By: Santi Oquendo Referrals: Cuauhtemoc Atkins MD [Primary Care Provider] - 2 weeks Patient Instructions: Opioid Safety Discharge Attestations Time Spent in Discharge Care*: greater than 30 min Status at Discharge: Cognitive status at discharge: mildly impaired cognition, Behavioral status at discharge: can be uncooperative, Quality Metrics Clinical Quality Measures [ No reported AMI, CVA or VTE this stay] Coding Level of Care Code Acute Code for Chg Fwd Diagnoses Acute respiratory distress R06.03 Acute on chronic respiratory failure with hypoxia and hypercapnia J96.21; J96.22 Acute exacerbation of chronic obstructive airways disease J44.1 Panic attacks F41.0 Asthma-COPD overlap syndrome J44.9
== END 2022-09-05 13:27 | disposition home or self-care (01) ==
LOC: ER 11:55 → MEDSURG 16:07
PROVIDERS: Admitting Provider Internal Medicine; Emergency Provider Emergency Medicine; PCP Family Medicine; Visit Provider Internal Medicine
DX: J44.1 Chronic obstructive pulmonary disease with (acute) exacerbation (principal); J96.22 Acute and chronic respiratory failure with hypercapnia; J96.21 Acute and chronic respiratory failure with hypoxia; E87.29 Other acidosis; Z91.199 Patient's noncompliance with other medical treatment and regimen due to unspecified reason; Z99.81 Dependence on supplemental oxygen; F41.0 Panic disorder [episodic paroxysmal anxiety]; Z87.891 Personal history of nicotine dependence; E03.9 Hypothyroidism, unspecified; Z79.891 Long term (current) use of opiate analgesic; Z79.82 Long term (current) use of aspirin; M54.2 Cervicalgia; M25.519 Pain in unspecified shoulder; G89.29 Other chronic pain; F31.9 Bipolar disorder, unspecified; Z66 Do not resuscitate
CPT/HCPCS: 36415; 36600; 71045; 80048; 80051; 80053; 82330; 82805; 83735; 83880; 84145; 84484; 85025; 85378; 86140; 87486; 87581; 87633; 87641; 93005; 94640; 94660; 94664; 94760; 96374; 99291; G0378; J3490; J7613; J7626

== ENCOUNTER 2022-10-11 01:04 | Emergency (ER) | payer MEDICARE, SELFPAY ==
[2022-10-11] VITALS (63 sets, daily range): BP systolic 131–170; BP diastolic 70–117; PULSE 93–118; RESP 17–39; TEMP 36.3; O2SAT 89–100; BMI 25.4
--- NOTE | 2022-10-11 01:08 | ECG_ITS ---
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 Measurements Intervals [place] Rate: 107 P: 83 WV: 146 QRS: 80 QRSD: 80 T: 90 QT: 328 QTc: 438 Interpretive Statements SINUS TACHYCARDIA POSSIBLE RIGHT ATRIAL ENLARGEMENT [0.25mV P-WAVE] POSSIBLE RIGHT VENTRICULAR CONDUCTION DELAY [RSR (QR) IN V1/V2] ABNORMAL RHYTHM ECG Compared to ECG 09/03/2022 13:46:53 Sinus rhythm no longer present Short [place] interval no longer present Electronically Signed On 10-11-2022 20:23:25 CDT by Giorgi Justin M.D. [email or web address]
--- NOTE | 2022-10-11 01:08 | XRR_ITS ---
PROCEDURE INFORMATION: Exam: XR Chest Exam date and time: 10/11/2022 1:36 AM Age: 72 years old Clinical indication: Shortness of breath; Additional info: SOB TECHNIQUE: Imaging protocol: Radiologic exam of the chest. Views: 1 view. COMPARISON: CR (CHEST, ) 09/03/2022 10:26 AM FINDINGS: Lungs: Mild COPD. Mild lung base atelectasis or scarring. A few minute calcified lung nodules are seen incidentally. No consolidation. Pleural spaces: Unremarkable. No pleural effusion. No pneumothorax. Heart/Mediastinum: Unremarkable. No cardiomegaly. Advanced diffuse vascular calcification noted. Bones/joints: Unremarkable. XR/XR chest 1V portable [id number] IMPRESSION: No acute findings.
[2022-10-11] MEDS: albuterol 2.5 mg/3 mL Neb INHALATION (01:20)
[2022-10-11] MEDS: magnesium sulfate premix 2 GM/50 ML PIGGYBACK IV (01:23)
[2022-10-11] MEDS: methylPREDNISolone sod succ 125 MG in water for injection-sterile 2 ML 24 MG IVP (01:23)
--- NOTE | 2022-10-11 01:23 | ED_ITS ---
HPI - SOB/Dyspnea General: Chief Complaint: Shortness of Breath/Dyspnea Stated Complaint: respiratory distress, COPD Time Seen by Provider: 10/11/22 01:08 Source: patient and EMS Mode of arrival: EMS Limitations: no limitations History of Present Illness: HPI Narrative: 72-year-old female has extensive history of COPD she is on 6 L at baseline states she had increased shortness of breath 30 minutes ago patient was 91% on her 6 L given breathing treatment in route she denies any cough denies any fevers she denies any chest pain. Associated symptoms: Deny abdominal pain, chest pain, fever(s), nausea or vomiting Review of Systems Const: Denies: fever(s), chills, body aches or change in appetite Eyes: Denies: blurry vision or eye discomfort ENMT: Denies: throat pain or dental pain Card: Denies: chest pain Resp: Reports: dyspnea and wheezing GI: Denies: abdominal pain, nausea, vomiting or diarrhea Musc: Denies: neck pain or back pain Skin/Breast: Denies: rash Neuro: Denies: headache(s) PFSH ED PFSH: Medical History Acute exacerbation of chronic obstructive airways disease Acute on chronic respiratory failure with hypoxia and hypercapnia Acute respiratory distress Asthma-COPD overlap syndrome Chronic respiratory failure with hypoxia COPD (chronic obstructive pulmonary disease) Panic anxiety syndrome Panic attacks Surgical History History of appendectomy History of cholecystectomy History of hysterectomy Hx of tonsillectomy Family History Other No pertinent family history Social History Smoking and tobacco status: former smoker Quit status (tobacco): has quit using tobacco Year quit tobacco: 2015 - 1PPD x 40 Years Alcohol intake: never Substance/Drug Use: never Lives independently: Yes Household members: none Current occupational status: disabled Pets and animals: Yes Pets & animals: dog(s) Do you think of yourself as: Straight/Heterosexual Current gender identity: Female Physical Exam Const: COMMON NORMALS: patient oriented x3 HENMT: COMMON NORMALS: normocephalic and atraumatic HEAD & SCALP: normocephalic and atraumatic Eye: COMMON NORMALS: Equal, round and reactive pupils present and EOMs intact bilaterally PUPIL: Yes Equal, round and reactive pupils present Neck/C-Spine: COMMON NORMALS: full ROM and supple Chest: COMMONS NORMALS: normal inspection of the chest and normal palpation of entire chest wall Resp: COMMON NORMALS: No retractions and No use of accessory muscles EFFORT & INSPECTION: Yes tachypneic and Yes respiratory distress AUSCULTATION: wheezes Cardio: COMMON NORMALS: regular rate, regular rhythm and No murmurs present (Cardio) RATE: regular rate RHYTHM: regular rhythm GI: COMMON NORMALS: Normal to inspection, nondistended, normoactive bowel sounds present, Soft to palpation, non-tender and no masses PALPATION: Yes Soft to palpation Extremity: COMMON NORMALS: normal to inspection and full ROM Neuro: COMMON NORMALS: patient oriented x3, moves all extremities and no focal motor deficits Psych: COMMON NORMALS: mental status grossly normal, Normal thought process present and cooperative THOUGHT PROCESS: Normal thought process present Skin: COMMON NORMALS: no rashes or lesions noted and no wounds GENERAL SKIN EXAM: no rashes or lesions noted Course Vital Signs: Vital signs: Vital Signs Temperature 97.4 F L 10/11/22 01:07 Pulse Rate 96 10/11/22 02:30 Respiratory Rate 23 H 10/11/22 02:30 Blood Pressure 148/71 10/11/22 02:30 Pulse Oximetry 99 10/11/22 02:30 Oxygen Delivery Me thod Aerosol Mask 10/11/22 01:20 Oxygen Flow Rate 8 10/11/22 01:20 MDM - SOB/Dyspnea Medical Decision Making Patient presents for shortness of breath due to her chronic COPD her wheezing and breathing improved greatly here after treatments. She is 96% here on her 6 L she is stable for discharge x-ray shows no pneumonia blood works normal Medical Records I reviewed the patient's medical records. Lab Data I reviewed the patient's lab results. 10/11/22 01:27 10/11/22 01:27 Labs/Radiology: Radiology Impressions Chest X-Ray 10/11/22 01:08 IMPRESSION: No acute findings. Laboratory Results WBC 6.8 10^3/uL (4.0-10.0) 10/11/22 01:27 RBC 4.14 10^6/uL (4.1-5.3) 10/11/22 01:27 Hgb 12.8 g/dL (11.5-15.3) 10/11/22 01:27 Hct 41.3 % (37.0-47.0) 10/11/22 01:27 MCV 99.8 fl (81-99) H 10/11/22 01:27 MCH 30.9 pg (28.0-34.0) 10/11/22 01: MCHC 31.0 g/dL (30.0-36.0) 10/11/22 01: RDW 14.6 % (12.1-15.1) 10/11/22 01:27 Plt Count 247 10^3/cmm (130-400) 10/11/22 01:27 MPV 10.6 fL (7.4-10.4) H 10/11/22 01:27 Neut % (Auto) 60.0 % 10/11/22 01:27 Lymph % (Auto) 21.7 % 10/11/22 01:27 [place] % (Auto) 9.4 % 10/11/22 01:27 Eos % (Auto) 7.9 % 10/11/22 01:27 Baso % (Auto) 0.9 % 10/11/22 01:27 Neut # (Auto) 4.08 10^3/uL (1.8-7.7) 10/11/22 01: Lymph # (Auto) 1.5 10^3/uL (0.8-4.8) 10/11/22 01:27 [place] # (Auto) 0.6 10^3/uL (0.2-0.9) 10/11/22 01:27 Eos # (Auto) 0.5 10^3/uL (0.0-0.8) 10/11/22 01:27 Baso # (Auto) 0.1 10^3/uL (0.0-0.1) 10/11/22 01:27 Nucleated RBC % (auto) 0 % 10/11/22 01:27 Nucleated RBCs # 0.0 /100WBC 10/11/22 01:27 Specimen Type Arterial 10/11/22 01:44 Sample Site Radial, left 10/11/22 01:44 ABG pH 7.36 (7.35-7.45) 10/11/22 01:44 ABG pCO2 59.9 mmHg (35-45) H 10/11/22 01:44 ABG pO2 83.3 mmHg (80.0-100.0) 10/11/22 01:44 ABG HCO3 33.4 mmol/L (22-26) H 10/11/22 01:44 ABG Base Excess 6.1 mmol/L (-2.0-2.0) H 10/11/22 01:44 Stephen Test Pos 10/11/22 01:44 Hematocrit 39.6 % (37-47) 10/11/22 01:44 Hgb O2 Saturation 96.4 % (95-100) 10/11/22 01:44 Carboxyhemoglobin 1.0 %THgb (0.4-20.1) 10/11/22 01:44 Methemoglobin 0.4 % (0.4-1.5) 10/11/22 01:44 Total Hemoglobin 12.9 g/dL (12-16) 10/11/22 01:44 O2 Delivery Device Nc 10/11/22 01:44 O2 Liters/Min 4.0 % 10/11/22 01:44 Mri Supervisor ID [email or web address] 10/11/22 01:44 Sodium 141 mmol/L (136-145) 10/11/22 01:27 Potassium 4.2 mmol/L (3.5-5.1) 10/11/22 01:27 Chloride 100 mmol/L (98-107) 10/11/22 01:27 Carbon Dioxide 32 mmol/L (22-29) H 10/11/22 01:27 Anion Gap 13.2 (5-19) 10/11/22 01:27 BUN 14 mg/dL (8-23) 10/11/22 01:27 Creatinine 0.5 mg/dL (0.5-0.9) 10/11/22 01:27 GFR Calculation Not Reportable 10/11/22 01:27 Glucose 107 mg/dL (65-115) 10/11/22 01:27 Calculated Osmolality 293 mOsm/kg (285-295) 10/11/22 01:27 Calcium 9.2 mg/dL (8.5-10.5) 10/11/22 01:27 Total Bilirubin 0.8 mg/dL (0.15-1.2) 10/11/22 01:27 AST 21 U/L (0-32) 10/11/22 01:27 ALT 9 U/L (0-33) 10/11/22 01:27 Alkaline Phosphatase 65 U/L (35-105) 10/11/22 01:27 Total Protein 5.7 g/dL (6.6-8.7) L 10/11/22 01:27 Albumin 3.8 g/dL (3.5-5.2) 10/11/22 01:27 Globulin 1.9 g/dL (1.3-4.6) 10/11/22 01:27 Discharge Plan Discharge Patient Disposition: Home Clinical Impression: Acute exacerbation of chronic obstructive airways disease Condition: Stable Prescriptions: New prednisone 50 mg tablet 50 mg PO DAILY Qty: 5 0RF No Action albuterol sulfate [Ventolin HFA] 90 mcg/actuation HFA aerosol inhaler 1 - 2 puff INHALATION Q4H PRN (Reason: Shortness Of Breath) hydrocodone-acetaminophen 10-325 mg Tablet 1 - 2 tab PO QID PRN (Reason: Pain) levothyroxine 125 mcg Tablet 125 mcg PO QAM aspirin 81 mg Tablet,Delayed Release (Dr/Ec) 81 mg PO BEDTIME ascorbic acid (vitamin C) [Vitamin C] 500 mg Tablet 500 mg PO DAILY ipratropium-albuterol 0.5 mg-3 mg(2.5 mg base)/3 mL solution for nebulization 3 ml inhalation Q6H PRN (Reason: shortness of breath or wheezing) Qty: 180 0RF Rx Instructions: until breathing returns to target peak flow/parameters fluoxetine 40 mg capsule 40 mg PO DAILY prednisolone sodium phosphate 15 mg/5 mL (3 mg/mL) solution See Rx Instructions .ROUTE .COMPLEX Rx Instructions: mg as directed quetiapine 50 mg tablet 50 mg PO DAILY Yupelri 175 mcg/3 mL solution for nebulization 175 mcg inhalation DAILY Qty: 21 3RF ipratropium-albuterol 0.5 mg-3 mg(2.5 mg base)/3 mL solution for nebulization 3 ml inhalation Q8H PRN (Reason: shortness of breath or wheezing) Qty: 90 4RF Symbicort 80-4.5 mcg/actuation HFA aerosol inhaler 1 inh inhalation BID Qty: 10.2 3RF Spiriva Respimat 1.25 mcg/actuation mist 2 inh inhalation DAILY Qty: 4 3RF Incruse Ellipta 62.5 mcg/actuation blister with device 1 inh inhalation DAILY Qty: 30 4RF Discharge Orders: Discharge ED (Routine); Ordered 10/11/22 Ordered By: Harshad Gardner Referrals: Cuauhtemoc Atkins MD [Primary Care Provider] - 1-3 days Discharge Diet: Advance as tolerated Discharge Activity: Resume usual activity Patient Instructions: COPD (Chronic Obstructive Pulmonary Disease) (ED) Coding Level of Care Code ED Rehab Office Coordinator for Ji Melgar
[2022-10-11 01:34] LABS: Basophils # 0.1 10^3/uL (0.0-0.1); Basophils % 0.9 %; Eosinophils # 0.5 10^3/uL (0.0-0.8); Eosinophils % 7.9 %; Hematocrit 41.3 % (37.0-47.0); Hemoglobin 12.8 g/dL (11.5-15.3); Lymphocytes # 1.5 10^3/uL (0.8-4.8); Lymphocytes % 21.7 %; Mean Corpuscular Hemoglobin 30.9 pg (28.0-34.0); Mean Corpuscular Volume 99.8 fl (81-99); Mean Platelet Volume 10.6 fL (7.4-10.4); Monocytes # 0.6 10^3/uL (0.2-0.9); Monocytes % 9.4 %; Neutrophils # 4.08 10^3/uL (1.8-7.7); Nucleated Red Blood Cells % 0 %; Platelet Count 247 10^3/cmm (130-400); Red Blood Count 4.14 10^6/uL (4.1-5.3); Red Cell Distribution Width 14.6 % (12.1-15.1); White Blood Count 6.8 10^3/uL (4.0-10.0)
[2022-10-11 01:53] LABS: ABG PCO2 59.9 mmHg (35-45); ABG PH Result 7.36 (7.35-7.45); Arterial Blood Gas Hematocrit 39.6 % (37-47); Base Excess ABG 6.1 mmol/L (-2.0-2.0); Blood Gas Allen Test Pos; Blood Gas Sample Site Radial, left; Blood Gas Sample Type Arterial; HCO3 ABG 33.4 mmol/L (22-26); HGB O2 Sat 96.4 % (95-100); Methemoglobin 0.4 % (0.4-1.5); Oxygen Device NC; PO2 ABG 83.3 mmHg (80.0-100.0); Total Hemoglobin 12.9 g/dL (12-16)
[2022-10-11 01:55] LABS: Alanine Aminotransferase 9 U/L (0-33); Albumin Level 3.8 g/dL (3.5-5.2); Alkaline Phosphatase 65 U/L (35-105); Blood Urea Nitrogen 14 mg/dL (8-23); Calcium 9.2 mg/dL (8.5-10.5); Carbon Dioxide 32 mmol/L (22-29); Chloride 100 mmol/L (98-107); Creatinine Clr Calc Pharmacy 49.5616; Globulin 1.9 g/dL (1.3-4.6); Glucose 107 mg/dL (65-115); Osmolality Calculated 293 mOsm/kg (285-295); Sodium 141 mmol/L (136-145); Total Bilirubin 0.8 mg/dL (0.15-1.2); Total Protein 5.7 g/dL (6.6-8.7)
[2022-10-11 02:06] LABS: Anion Gap 13.2 (5-19); Aspartate Amino Transferase 21 U/L (0-32); Potassium 4.2 mmol/L (3.5-5.1)
--- NOTE | 2022-10-11 02:30 | PC.NURSE ---
Ride transport Call made to [facility]. Able to transport patient home in 1-2 hours.
== END 2022-10-11 06:52 | disposition home or self-care (01) ==
PROVIDERS: Emergency Provider Emergency Medicine; PCP Family Medicine
DX: J44.1 Chronic obstructive pulmonary disease with (acute) exacerbation (principal); Z87.891 Personal history of nicotine dependence; Z79.899 Other long term (current) drug therapy; Z79.82 Long term (current) use of aspirin; Z79.51 Long term (current) use of inhaled steroids
CPT/HCPCS: 36600; 71045; 80053; 82805; 85025; 93005; 94640; 96365; 96367; 99285; J2930; J3475; J7613

== ENCOUNTER 2022-10-18 10:14 | Emergency (ER) | payer MEDICARE, SELFPAY ==
--- NOTE | 2022-10-18 10:17 | W.ED.GENADLT ---
HPI - General Adult General: Chief complaint: Weakness Stated complaint: not eating 3 days / MHE Time Seen by Provider: 10/18/22 10:17 History of Present Illness: Ms. Montes De Oca is a 72-year-old lady with history of COPD chronic hypoxic respiratory failure on 6 L at baseline presented to the emergency department for general evaluation. She apparently has not eaten for 3 days and police were called to do a welfare check. EMS found the patient in poor living condition with dog feces around the house. Apparently she thought that her phone was not working but as it turns out it was just unplugged and she reports that it is working now. She typically calls people to bring her food and does report that she has money for food. She also has people that help her clean the house. She denies any complaints other than being hungry. She has been at her baseline health. She denies suicidal or homicidal ideation. She denies hallucinations. Other than feeding her she reports that she has no idea how else we can help her. Onset (ago): day(s) Review of Systems General: Reports: 10 or more systems reviewed and unremarkable except in HPI and below PFSH ED PFSH: Medical History Acute exacerbation of chronic obstructive airways disease Acute on chronic respiratory failure with hypoxia and hypercapnia Acute respiratory distress Asthma-COPD overlap syndrome Chronic respiratory failure with hypoxia COPD (chronic obstructive pulmonary disease) Panic anxiety syndrome Panic attacks Surgical History History of appendectomy History of cholecystectomy History of hysterectomy Hx of tonsillectomy Family History Other No pertinent family history Social History Smoking and tobacco status: former smoker Quit status (tobacco): has quit using tobacco Year quit tobacco: 2015 - 1PPD x 40 Years Alcohol intake: never Substance/Drug Use: never Lives independently: Yes Household members: none Current occupational status: disabled Pets and animals: Yes Pets & animals: dog(s) Do you think of yourself as: Straight/Heterosexual Current gender identity: Female Physical Exam Const: COMMON NORMALS: alert GENERAL APPEARANCE: cooperative and well developed HENMT: COMMON NORMALS: normocephalic and atraumatic HEAD & SCALP: normocephalic and atraumatic Eye: COMMON NORMALS: conjunctivae normal CONJUNCTIVA: Yes conjunctivae normal SCLERA: sclerae normal Neck/C-Spine: COMMON NORMALS: supple GENERAL: Yes trachea midline Resp: COMMON NORMALS: normal respiratory effort EFFORT & INSPECTION: Yes able to speak in complete sentences Cardio: COMMON NORMALS: regular rate and regular rhythm RATE: regular rate RHYTHM: regular rhythm GI: COMMON NORMALS: Soft to palpation PALPATION: Yes Soft to palpation and No Tenderness to palpation present (GI) Extremity: GENERAL: Yes normal exam except as noted and No edema Neuro: COMMON NORMALS: moves all extremities SENSORIUM/ORIENTATION: Yes alert and No Orientation impaired Psych: COMMON NORMALS: denies hallucinations, denies homicidal ideation and denies suicidal ideation Course Vital Signs: Vital signs: Vital Signs Temperature 97.8 F 10/18/22 10:21 Pulse Rate 71 10/18/22 11:33 Respiratory Rate 16 10/18/22 11:33 Blood Pressure 138/81 10/18/22 11:33 Pulse Oximetry 98 10/18/22 11:33 Oxygen Delivery Me thod Room Air 10/18/22 11:33 Oxygen Flow Rate 6 10/18/22 10:21 MDM - General Adult Medical Decision Making 72-year-old lady presenting for evaluation of mental health and safety. She is chronically ill appearance however nontoxic. I do not appreciate focal neurologic deficits or evidence of injury. The patient adamantly denies suicidal or homicidal ideation. She is quite unpleasant to staff and argumentative however I do not see evidence of impaired cognition. She has linear and goal-oriented discussion, there is no evidence of intoxication, her behavioral outbursts appear to be related to not getting away and poor coping skills as opposed to true mental status changes and are likely chronic. She expresses a defined plan now that her phone is working to get help to clean her house and food. She adamantly declines further ED evaluation and once again adamantly declines suicidal or homicidal ideation. I reviewed recent laboratory studies and imaging. Ultimately I believe that patient has capacity to make medical decisions and expresses desire for discharge. Return precautions discussed. Discharged in satisfactory condition. Medical Records I reviewed the patient's medical records. Lab Data I reviewed the patient's lab results. Discharge Plan Discharge Patient Disposition: Home Clinical Impression: Hunger, Impaired psychosocial skills, Impaired activities of daily living Condition: Stable Prescriptions: No Action albuterol sulfate [Ventolin HFA] 90 mcg/actuation HFA aerosol inhaler 1 - 2 puff INHALATION Q4H PRN (Reason: Shortness Of Breath) hydrocodone-acetaminophen 10-325 mg Tablet 1 - 2 tab PO QID PRN (Reason: Pain) levothyroxine 125 mcg Tablet 125 mcg PO QAM aspirin 81 mg Tablet,Delayed Release (Dr/Ec) 81 mg PO BEDTIME ascorbic acid (vitamin C) [Vitamin C] 500 mg Tablet 500 mg PO DAILY ipratropium-albuterol 0.5 mg-3 mg(2.5 mg base)/3 mL solution for nebulization 3 ml inhalation Q6H PRN (Reason: shortness of breath or wheezing) Qty: 180 0RF Rx Instructions: until breathing returns to target peak flow/parameters fluoxetine 40 mg capsule 40 mg PO DAILY prednisolone sodium phosphate 15 mg/5 mL (3 mg/mL) solution See Rx Instructions .ROUTE .COMPLEX Rx Instructions: mg as directed quetiapine 50 mg tablet 50 mg PO DAILY Yupelri 175 mcg/3 mL solution for nebulization 175 mcg inhalation DAILY Qty: 21 3RF ipratropium-albuterol 0.5 mg-3 mg(2.5 mg base)/3 mL solution for nebulization 3 ml inhalation Q8H PRN (Reason: shortness of breath or wheezing) Qty: 90 4RF Symbicort 80-4.5 mcg/actuation HFA aerosol inhaler 1 inh inhalation BID Qty: 10.2 3RF Spiriva Respimat 1.25 mcg/actuation mist 2 inh inhalation DAILY Qty: 4 3RF Incruse Ellipta 62.5 mcg/actuation blister with device 1 inh inhalation DAILY Qty: 30 4RF prednisone 50 mg tablet 50 mg PO DAILY Qty: 5 0RF Discharge Orders: Discharge ED (Routine); Ordered 10/18/22 Ordered By: Isael Castorena Referrals: Cuauhtemoc Atkins MD [Primary Care Provider] - Discharge Diet: Usual diet Discharge Activity: Resume usual activity and Limit activity as instructed Activity Restrictions/Additional Instructions: Thank you for visiting the emergency department. You were seen and evaluated for psychosocial concerns. Given lack of health changes and reported ability to fix social situation now that phone is fixed you do not appear to need further hospitalization or ED evaluation. Please continue your medications. Please ensure that your living environment is safe and sanitary. Follow-up with a primary care provider. Return for anything that you are concerned about and feel needs emergency department evaluation. Coding Level of Care Code ED Equipment Technician for Ji Melgar
[2022-10-18 10:21] VITALS: BP 138/81; PULSE 74; RESP 18; TEMP 36.6; O2SAT 99
--- NOTE | 2022-10-18 11:10 | PC.NURSE ---
PATIENT RESEARCH NUTRITIONIST LIGHT DEMANDING FOOD. FOOD TRAY WAS ORDERED FOR PATIENT. PATIENT DEMANDING TO LEAVE BECAUSE SHE WANTS TO GROCERY SHOP. PATIENT PULLING BLOOD PRESSURE CUFF OFF AND O2 MONITOR. PATIENT PULLED OXYGEN OFF TOO. PATIENT DEMANDING WE GET HER AN OXYGEN TANK SO SHE CAN LEAVE. NURSE CALLED SANKET TO GET OXYGEN TANK FOR PATIENT AND WAS TOLD IT WOULD BE 2 HOURS. NURSE EDUCATED PATIENT AND PATIENT BECAME ANGRY. PATIENT DEMANDING TO LEAVE WITHOUT OXYGEN. NURSE EDUCATED PATIENT ON RISK OF LEAVING WITHOUT OXYGEN. PATIENT YELLING AND CUSSING OUT STAFF.
[2022-10-18 11:33] VITALS: BP 138/81; PULSE 71; RESP 16; O2SAT 98
--- NOTE | 2022-10-18 11:35 | PC.NURSE ---
PT REFUSED ALL TREATMENT AND WAS VERBALLY AGGRESSIVE TOWARDS ALL STAFF YELLING PROFANITIES AND ATTEMPTED TO PULL OFF HER VITALS. PT REFUSED ATTEMPTS TO GIVE HER FOOD. PT TRIED TO GET STAFF TO HIT HER AND STATED HIT ME YOU FUCKING BITCH SO I CAN GET YOU. PT REFUSED TO LEAVE UNTIL WE SOLD HER AN OXYGEN TANK. PTS NURSE CALLED [facility] AND AN OXYGEN TANK WAS BROUGHT TO HER SO SHE COULD LEAVE AT THAT TIME. PT STATED TO THE [facility] STAFF YOU'RE A FUCKING BITCH THIS ISN'T ENOUGH OXYGEN FOR ME. PT WAS ADVISED THAT THIS TANK WAS TO HELP HER GET HOME AND THAT TANK WAS GOOD FOR 3 HOURS.
== END 2022-10-18 11:28 | disposition home or self-care (01) ==
PROVIDERS: Emergency Provider Emergency Medicine; PCP Family Medicine
DX: T73.0XXA Starvation, initial encounter (principal); Z73.4 Inadequate social skills, not elsewhere classified; Z73.89 Other problems related to life management difficulty; Z79.82 Long term (current) use of aspirin; J44.9 Chronic obstructive pulmonary disease, unspecified; Z87.891 Personal history of nicotine dependence
CPT/HCPCS: 99281

== ENCOUNTER 2022-11-21 02:35 | Emergency (ER) | payer MEDICARE, SELFPAY ==
[2022-11-21 02:36] VITALS: BP 170/103; PULSE 95; RESP 16; TEMP 36.6; O2SAT 100; BMI 25.4
--- NOTE | 2022-11-21 02:52 | XRR_ITS ---
PROCEDURE INFORMATION: Exam: XR Chest Exam date and time: 11/21/2022 3:03 AM Age: 72 years old Clinical indication: Shortness of breath; Prior surgery; Surgery date: 6+ months; Surgery type: Gb; Patient HX: C/O SOB. Hypertensive on monitor. History of copd. ; Additional info: HTN, copd TECHNIQUE: Imaging protocol: Radiologic exam of the chest. Views: 1 view. COMPARISON: CR (CHEST, ) 10/11/2022 1:36 AM FINDINGS: Lungs: No CHF/pulmonary edema. Visible lungs appear essentially clear. Pleural spaces: No visible pneumothorax. No definite pleural fluid. Heart/Mediastinum: Heart size is within normal limits. Bones/joints: No significant acute finding. XR/XR chest 1V portable [id number] IMPRESSION: 1. No definite pneumonia or CHF. 2. Other findings discussed above.
[2022-11-21 02:59] VITALS: BP 178/93
[2022-11-21] MEDS: cloNIDine 0.1 mg Tablet PO (02:59)
[2022-11-21] MEDS: sodium chloride 0.9% 1,000 ML 999 ML IV (03:00)
[2022-11-21 03:02] LABS: Basophils # 0.1 10^3/uL (0.0-0.1); Basophils % 0.7 %; Eosinophils # 0.2 10^3/uL (0.0-0.8); Eosinophils % 2.8 %; Hematocrit 42.7 % (36-47); Lymphocytes # 1.7 10^3/uL (0.8-4.8); Lymphocytes % 23.8 %; Mean Platelet Volume 10.1 fL (7.4-10.4); Monocytes % 13.8 %; Neutrophils # 4.22 10^3/uL (1.8-7.7); Neutrophils % 58.6 %; Nucleated Red Blood Cells % 0 %; Platelet Count 303 10^3/cmm (157-399); Red Cell Distribution Width 14.6 % (12.1-15.1); White Blood Count 7.19 10^3/uL (3.29-11.43)
--- NOTE | 2022-11-21 03:15 | ED_ITS ---
HPI - General Adult General: Chief complaint: General Medical Stated complaint: headache Time Seen by Provider: 11/21/22 02:44 History of Present Illness: Patient presents to the ER for complaints of generally not feeling well. Patient states she is out of her anxiety meds. Patient states she has a headache. Patient is yelling that she wants to be on 6 L of oxygen because she wears 6 L at home. Patient is only requiring 2 L of oxygen to keep her sat up to 100% however she will not except the fact that she does not need 6 L. Review of Systems General: Reports: 10 or more systems reviewed and unremarkable except in HPI and below PFSH ED PFSH: Medical History Acute exacerbation of chronic obstructive airways disease Acute on chronic respiratory failure with hypoxia and hypercapnia Acute respiratory distress Asthma-COPD overlap syndrome Chronic respiratory failure with hypoxia COPD (chronic obstructive pulmonary disease) Panic anxiety syndrome Panic attacks Surgical History History of appendectomy History of cholecystectomy History of hysterectomy Hx of tonsillectomy Family History Other No pertinent family history Social History Smoking and tobacco status: former smoker Quit status (tobacco): has quit using tobacco Year quit tobacco: 2014 1PPD x 40 Years Alcohol intake: never Substance/Drug Use: never Lives independently: Yes Household members: none Current occupational status: disabled Pets and animals: Yes Pets & animals: dog(s) Do you think of yourself as: Straight/Heterosexual Current gender identity: Female Physical Exam Const: COMMON NORMALS: no acute distress, average body habitus, patient oriented x3, no limitations, healthy appearing, alert and well nourished HENMT: COMMON NORMALS: normocephalic, atraumatic, hearing grossly normal bilaterally, external ears normal, Normal external nose present and moist oral mucous membranes HEAD & SCALP: normocephalic and atraumatic NOSE: Normal external nose present EXTERNAL EAR: Yes external ears normal Eye: COMMON NORMALS: Equal, round and reactive pupils present, EOMs intact bilaterally, conjunctivae normal and no scleral icterus CONJUNCTIVA: Yes conjunctivae normal PUPIL: Yes Equal, round and reactive pupils present Neck/C-Spine: COMMON NORMALS: full ROM, no lymphadenopathy, supple, no meningeal signs, no JVD and Thyroid normal THYROID: Thyroid normal Lymph: LYMPHATIC: no lymphadenopathy noted Chest: COMMONS NORMALS: normal inspection of the chest and normal palpation of entire chest wall Resp: COMMON NORMALS: normal respiratory effort, No retractions, No use of accessory muscles and clear to auscultation bilaterally AUSCULTATION: clear to auscultation bilaterally Cardio: COMMON NORMALS: no JVD, regular rate, regular rhythm, S1 normal heart sound present, S2 normal heart sound present, No gallops present (Cardio), No clicks present (Cardio), No murmurs present (Cardio) and No rub (Cardio) RATE: regular rate RHYTHM: regular rhythm HEART SOUNDS: S1 normal heart sound present and S2 normal heart sound present GI: COMMON NORMALS: Normal to inspection, nondistended, normoactive bowel sounds present, Soft to palpation, non-tender, No hepatosplenomegaly present and no masses PALPATION: Yes Soft to palpation and Yes No hepatosplenomegaly present : COMMON NORMALS: Yes no CVA tenderness BLADDER/KIDNEY EXAM: Yes no CVA tenderness Back/Pelvis: COMMON NORMALS: no CVA tenderness Neuro: COMMON NORMALS: patient oriented x3 SENSORIUM/ORIENTATION: Yes alert MENINGEAL SIGNS: Yes no meningeal signs Course Vital Signs: Vital signs: Vital Signs Temperature 97.9 F 11/21/22 02:36 Pulse Rate 76 11/21/22 03:50 Respiratory Rate 16 11/21/22 03:50 Blood Pressure 169/84 11/21/22 03:50 Pulse Oximetry 100 11/21/22 03:50 Oxygen Delivery Me thod Room Air 11/21/22 02:36 MDM - General Adult Medical Decision Making Patient presents to the ER with complaints of generally not feeling well however she cannot get any more specific than that. Patient remains to be on 6 L even though she is satting 100% on 2 L. Lab work was obtained physical exam was performed lab work showed the patient is hypokalemic with a potassium of 3.1. Chest x-ray was negative. Patient was given 40 mEq oral potassium and will be sent home on potassium supplementation. Patient will follow-up with her family practice doctor in approximately 7 days for further reevaluation and testing. Differential Diagnosis Headache, high blood pressure, ran out of anxiety medicine Medical Records I reviewed the patient's medical records. Lab Data I reviewed the patient's lab results. 11/21/22 02:45 11/21/22 02:45 Radiology Impressions Chest X-Ray 11/21/22 02:52 IMPRESSION: 1. No definite pneumonia or CHF. 2. Other findings discussed above. Laboratory Results WBC 7.19 10^3/uL (3.29-11.43) 11/21/22 02:45 RBC 4.40 10^6/uL (3.85-5.65) 11/21/22 02:45 Hgb 14.50 g/dL (11.27-16.99) 11/21/22 02:45 Hct 42.7 % (36-47) 11/21/22 02:45 MCV 97.0 fl (85-98) 11/21/22 02:45 MCH 33.0 pg (27-33) 11/21/22 02:45 MCHC 34.0 g/dL (30-55) 11/21/22 02:45 RDW 14.6 % (12.1-15.1) 11/21/22 02:45 Plt Count 303 10^3/cmm (157-399) 11/21/22 02:45 MPV 10.1 fL (7.4-10.4) 11/21/22 02:45 Neut % (Auto) 58.6 % 11/21/22 02:45 Lymph % (Auto) 23.8 % 11/21/22 02:45 Lucas % (Auto) 13.8 % 11/21/22 02:45 Eos % (Auto) 2.8 % 11/21/22 02:45 Baso % (Auto) 0.7 % 11/21/22 02:45 Neut # (Auto) 4.22 10^3/uL (1.8-7.7) 11/21/22 02:45 Lymph # (Auto) 1.7 10^3/uL (0.8-4.8) 11/21/22 02:45 Lucas # (Auto) 1.0 10^3/uL (0.2-0.9) H 11/21/22 02:45 Eos # (Auto) 0.2 10^3/uL (0.0-0.8) 11/21/22 02:45 Baso # (Auto) 0.1 10^3/uL (0.0-0.1) 11/21/22 02:45 Nucleated RBC % (auto) 0 % 11/21/22 02:45 Nucleated RBCs # 0.0 /100WBC 11/21/22 02:45 Sodium 142 mmol/L (136-145) 11/21/22 02:45 Potassium 3.1 mmol/L (3.5-5.1) L 11/21/22 02:45 Chloride 102 mmol/L (98-107) 11/21/22 02:45 Carbon Dioxide 29 mmol/L (22-29) 11/21/22 02:45 Anion Gap 14.1 (5-19) 11/21/22 02:45 BUN 5 mg/dL (8-23) L 11/21/22 02:45 Creatinine 0.6 mg/dL (0.5-0.9) 11/21/22 02:45 GFR Calculation Not Reportable 11/21/22 02:45 Glucose 119 mg/dL (65-115) H 11/21/22 02:45 Calculated Osmolality 292 mOsm/kg (285-295) 11/21/22 02:45 Calcium 9.6 mg/dL (8.5-10.5) 11/21/22 02:45 Total Bilirubin 0.7 mg/dL (0.15-1.2) 11/21/22 02:45 AST 18 U/L (0-32) 11/21/22 02:45 ALT 8 U/L (0-33) 11/21/22 02:45 Alkaline Phosphatase 74 U/L (35-105) 11/21/22 02:45 Total Protein 7.3 g/dL (6.6-8.7) 11/21/22 02:45 Albumin 4.7 g/dL (3.5-5.2) 11/21/22 02:45 Globulin 2.6 g/dL (1.3-4.6) 11/21/22 02:45 Urine Color Yellow (Yellow) 11/21/22 03:22 Urine Appearance Hazy (CLEAR) A 11/21/22 03:22 Urine pH 5 (5-7) 11/21/22 03:22 Ur Specific [place] 1.025 (1.005-1.030) 11/21/22 03:22 Urine Protein 1+ (Negative) H 11/21/22 03:22 Urine Glucose (UA) Norm (Normal) 11/21/22 03:22 Urine Ketones 1+ (Negative) H 11/21/22 03:22 Urine Blood Neg (Negative) 11/21/22 03:22 Urine Nitrate Negative (Negative) 11/21/22 03:22 Urine Bilirubin 1+ (Negative) H 11/21/22 03:22 Urine Urobilinogen Neg mg/dL (Negative) 11/21/22 03:22 Ur Leukocyte Esterase Trace (Negative) H 11/21/22 03:22 Urine RBC 0-4 /hpf (0-2) H 11/21/22 03:22 Urine WBC 5-10 /hpf (0-5) H 11/21/22 03:22 Ur Squamous Epith Cells 5-10 /hpf (0-5) H 11/21/22 03:22 Amorphous Sediment Not Reportable 11/21/22 03:22 Urine Bacteria 1+ /hpf (NONE) H 11/21/22 03:22 Hyaline Casts 0-4 /lpf H 11/21/22 03:22 Urine Mucus 3+ /hpf 11/21/22 03:22 Discharge Plan Discharge Patient Disposition: Home Clinical Impression: Acute hypokalemia Condition: Stable Prescriptions: New potassium chloride 20 mEq tablet extended release 20 meq PO DAILY Qty: 7 0RF No Action albuterol sulfate [Ventolin HFA] 90 mcg/actuation HFA aerosol inhaler 1 - 2 puff INHALATION Q4H PRN (Reason: Shortness Of Breath) hydrocodone-acetaminophen 10-325 mg Tablet 1 - 2 tab PO QID PRN (Reason: Pain) levothyroxine 125 mcg Tablet 125 mcg PO QAM aspirin 81 mg Tablet,Delayed Release (Dr/Ec) 81 mg PO BEDTIME ascorbic acid (vitamin C) [Vitamin C] 500 mg Tablet 500 mg PO DAILY ipratropium-albuterol 0.5 mg-3 mg(2.5 mg base)/3 mL solution for nebulization 3 ml inhalation Q6H PRN (Reason: shortness of breath or wheezing) Qty: 180 0RF Rx Instructions: until breathing returns to target peak flow/parameters fluoxetine 40 mg capsule 40 mg PO DAILY prednisolone sodium phosphate 15 mg/5 mL (3 mg/mL) solution See Rx Instructions .ROUTE .COMPLEX Rx Instructions: mg as directed quetiapine 50 mg tablet 50 mg PO DAILY Yupelri 175 mcg/3 mL solution for nebulization 175 mcg inhalation DAILY Qty: 21 3RF ipratropium-albuterol 0.5 mg-3 mg(2.5 mg base)/3 mL solution for nebulization 3 ml inhalation Q8H PRN (Reason: shortness of breath or wheezing) Qty: 90 4RF Symbicort 80-4.5 mcg/actuation HFA aerosol inhaler 1 inh inhalation BID Qty: 10.2 3RF Spiriva Respimat 1.25 mcg/actuation mist 2 inh inhalation DAILY Qty: 4 3RF Incruse Ellipta 62.5 mcg/actuation blister with device 1 inh inhalation DAILY Qty: 30 4RF prednisone 50 mg tablet 50 mg PO DAILY Qty: 5 0RF Discharge Orders: Discharge ED (Routine); Ordered 11/21/22 Ordered By: Casey Regan Referrals: Cuauhtemoc Atkins MD [Primary Care Provider] - Patient Instructions: Hypokalemia (ED) Activity Restrictions/Additional Instructions: Please take your potassium supplementation as directed. Please follow-up with your family practice doctor in the next 7 days or sooner as needed for further reevaluation and testing. Coding Level of Care Code ED Railroad Track Inspector for Ji Melgar
[2022-11-21 03:18] LABS: Alanine Aminotransferase 8 U/L (0-33); Albumin Level 4.7 g/dL (3.5-5.2); Alkaline Phosphatase 74 U/L (35-105); Anion Gap 14.1 (5-19); Aspartate Amino Transferase 18 U/L (0-32); Blood Urea Nitrogen 5 mg/dL (8-23); Calcium 9.6 mg/dL (8.5-10.5); Carbon Dioxide 29 mmol/L (22-29); Chloride 102 mmol/L (98-107); Creatinine Clr Calc Pharmacy 49.5616; Globulin 2.6 g/dL (1.3-4.6); Glucose 119 mg/dL (65-115); Osmolality Calculated 292 mOsm/kg (285-295); Potassium 3.1 mmol/L (3.5-5.1); Sodium 142 mmol/L (136-145); Total Bilirubin 0.7 mg/dL (0.15-1.2); Total Protein 7.3 g/dL (6.6-8.7)
[2022-11-21] MEDS: potassium chloride ER 20 mEq Tablet 40 MEQ PO (03:36)
[2022-11-21 03:37] LABS: Slide Review Slide Review Perform
[2022-11-21 03:50] VITALS: BP 169/84; PULSE 76; RESP 16; O2SAT 100
[2022-11-21 03:51] LABS: Add Urine Microscopic? YES; Bilirubin Urine 1+ (Negative); Blood Urine Neg (Negative); Glucose Urine UA Norm (Normal); Ketones Urine 1+ (Negative); Leukocyte Esterase Urine Trace (Negative); Nitrate Urine Negative (Negative); Protein Urine 1+ (Negative); Specific Gravity, Urine 1.025 (1.005-1.030); Urine Appearance Hazy (CLEAR); Urine Color Yellow (Yellow); Urobilinogen Urine Neg (Negative); pH Urine 5 (5-7)
[2022-11-21 03:52] LABS: Add Urine Culture? No; Bacteria Urine 1+ /hpf; Hyaline Casts Urine 0-4 /lpf; Mucus Urine 3+ /hpf; RBC Urine 0-4 /hpf (0-2)
[2022-11-21 07:01] VITALS: BP 169/84; PULSE 76; RESP 16; TEMP 36.6; O2SAT 100
== END 2022-11-21 07:53 | disposition home or self-care (01) ==
PROVIDERS: Emergency Provider Emergency Medicine; PCP Family Medicine
DX: E87.6 Hypokalemia (principal); Z79.82 Long term (current) use of aspirin; J44.9 Chronic obstructive pulmonary disease, unspecified; Z87.891 Personal history of nicotine dependence
CPT/HCPCS: 71045; 80053; 81001; 85025; 96360; 99284; J7030

== ENCOUNTER 2022-11-23 11:19 | Observation (INO) | payer MEDICARE, SELFPAY ==
[2022-11-23 11:20] VITALS: BP 154/92; PULSE 105; RESP 16; O2SAT 100; BMI 25.4
--- NOTE | 2022-11-23 11:20 | XR_ITS ---
WS: [id number] Portable AP upright chest, 11/23/2022 Clinical Data: sob Comparison: Portable chest, 11/21/2022 Findings: No nodules, masses or effusions are seen. The heart is normal. The pulmonary vascularity is not increased. No pneumonia or pneumothorax is seen. The aortic arch and descending thoracic aorta s how mild tortuosity. Impression: Atherosclerosis.
--- NOTE | 2022-11-23 11:26 | ECG_ITS ---
[facility] Test Date: 2022-11-23 Pat Name: Socorro Montes De Oca Department: Room: Gender: Female 3D Modeler: : [id number] Requested By: Harshad Gardner Order Number: [id number] Octavio MD: Giorgi Justin M.D. Measurements Intervals [place] Rate: 105 P: 87 NH: 119 QRS: 75 QRSD: 79 T: 79 QT: 341 QTc: 452 Interpretive Statements SINUS TACHYCARDIA WITH SHORT NH INTERVAL POSSIBLE RIGHT VENTRICULAR CONDUCTION DELAY [RSR (QR) IN V1/V2] ABNORMAL RHYTHM ECG Compared to ECG 10/11/2022 01:19:40 Short NH interval now present Electronically Signed On 11-23-2022 21:23:07 CDT by Giorgi Justin M.D. [id number]
[2022-11-23 11:43] LABS: Add Urine Microscopic? NO; Charge for UA Resulting for Rev
--- NOTE | 2022-11-23 11:44 | ED_ITS ---
HPI - Weakness General: Chief complaint: Weakness Stated complaint: weakness, resp distress Time Seen by Provider: 11/23/22 11:20 Source: patient and EMS Mode of arrival: EMS Limitations: no limitations History of Present Illness: 72-year-old female who is well-known to ER has a long history of COPD she is on 6 L of oxygen at baseline states that she has had some shortness of breath today and along with some generalized weakness states she also ran out of her clonazepam has been feeling quite anxious she is in no distress here no cough or fever she is 100% here on her 6 L she has no confusion answering all my questions appropriately Associated symptoms: Denies chest pain, chills, dysuria, fever(s), headache(s), nausea or vomiting Review of Systems Const: Reports: fatigue and malaise; Denies: fever(s), chills, body aches or change in appetite Eyes: Denies: blurry vision or eye discomfort ENMT: Denies: throat pain or dental pain Card: Denies: chest pain Resp: Reports: dyspnea GI: Denies: abdominal pain, nausea, vomiting or diarrhea : Denies: dysuria Musc: Denies: neck pain or back pain Skin/Breast: Denies: rash Neuro: Denies: headache(s) PFSH ED PFSH: Medical History Acute exacerbation of chronic obstructive airways disease Acute on chronic respiratory failure with hypoxia and hypercapnia Acute respiratory distress Asthma-COPD overlap syndrome Chronic respiratory failure with hypoxia COPD (chronic obstructive pulmonary disease) Panic anxiety syndrome Panic attacks Surgical History History of appendectomy History of cholecystectomy History of hysterectomy Hx of tonsillectomy Family History Other No pertinent family history Social History Smoking and tobacco status: former smoker Quit status (tobacco): has quit using tobacco Year quit tobacco: 2014 1PPD x 40 Years Alcohol intake: never Substance/Drug Use: never Lives independently: Yes Household members: none Current occupational status: disabled Pets and animals: Yes Pets & animals: dog(s) Do you think of yourself as: Straight/Heterosexual Current gender identity: Female Physical Exam Const: COMMON NORMALS: patient oriented x3 and healthy appearing HENMT: COMMON NORMALS: normocephalic and atraumatic HEAD & SCALP: normocephalic and atraumatic Eye: COMMON NORMALS: Equal, round and reactive pupils present and EOMs intact bilaterally PUPIL: Yes Equal, round and reactive pupils present Neck/C-Spine: COMMON NORMALS: full ROM and supple Chest: COMMONS NORMALS: normal inspection of the chest and normal palpation of entire chest wall Resp: COMMON NORMALS: normal respiratory effort, No retractions, No use of accessory muscles and clear to auscultation bilaterally AUSCULTATION: clear to auscultation bilaterally Cardio: COMMON NORMALS: regular rate, regular rhythm and No murmurs present (Cardio) RATE: regular rate RHYTHM: regular rhythm GI: COMMON NORMALS: Normal to inspection, nondistended, normoactive bowel soun ds present, Soft to palpation, non-tender and no masses PALPATION: Yes Soft to palpation Extremity: COMMON NORMALS: normal to inspection and full ROM Neuro: COMMON NORMALS: patient oriented x3, moves all extremities and no focal motor deficits Psych: COMMON NORMALS: mental status grossly normal, Normal thought process present and cooperative THOUGHT PROCESS: Normal thought process present Skin: COMMON NORMALS: no rashes or lesions noted and no wounds GENERAL SKIN EXAM: no rashes or lesions noted Course Vital Signs: Vital signs: Vital Signs Pulse Rate 105 H 11/23/22 11:20 Respiratory Rate 16 11/23/22 11:20 Blood Pressure 154/92 11/23/22 11:20 Pulse Oximetry 100 11/23/22 11:20 Oxygen Delivery Me thod Nasal Cannula 11/23/22 11:20 Oxygen Flow Rate 6 11/23/22 11:20 MDM - Weakness Medical Decision Making Patient presents here with weakness along with some shortness of breath of seen her many times in the past I did recommend skilled nursing before today she is agreeable to skilled nursing placement she lives alone has no family she is unable to take to her care for self will admit at this time for skilled nursing placement Medical Records I reviewed the patient's medical records. Lab Data I reviewed the patient's lab results. 11/23/22 11:38 11/23/22 11:38 Laboratory Results WBC 7.99 10^3/uL (3.29-11.43) 11/23/22 11:38 RBC 4.34 10^6/uL (3.85-5.65) 11/23/22 11:38 Hgb 13.90 g/dL (11.27-16.99) 11/23/22 11:38 Hct 41.6 % (36-47) 11/23/22 11:38 MCV 95.9 fl (85-98) 11/23/22 11:38 MCH 32.0 pg (27-33) 11/23/22 11:38 MCHC 33.4 g/dL (30-55) 11/23/22 11:38 RDW 14.6 % (12.1-15.1) 11/23/22 11:38 Plt Count 305 10^3/cmm (157-399) 11/23/22 11:38 MPV 10.7 fL (7.4-10.4) H 11/23/22 11:38 Neut % (Auto) 64.4 % 11/23/22 11:38 Lymph % (Auto) 19.6 % 11/23/22 11:38 Grainger % (Auto) 12.3 % 11/23/22 11:38 Eos % (Auto) 2.6 % 11/23/22 11:38 Baso % (Auto) 0.8 % 11/23/22 11:38 Neut # (Auto) 5.15 10^3/uL (1.8-7.7) 11/23/22 11:38 Lymph # (Auto) 1.6 10^3/uL (0.8-4.8) 11/23/22 11:38 Grainger # (Auto) 1.0 10^3/uL (0.2-0.9) H 11/23/22 11:38 Eos # (Auto) 0.2 10^3/uL (0.0-0.8) 11/23/22 11:38 Baso # (Auto) 0.1 10^3/uL (0.0-0.1) 11/23/22 11:38 Nucleated RBC % (auto) 0 % 11/23/22 11:38 Nucleated RBCs # 0.0 /100WBC 11/23/22 11:38 Specimen Type Arterial 11/23/22 11:41 Sample Site Radial, right 11/23/22 11:41 ABG pH 7.46 (7.35-7.45) H 11/23/22 11:41 ABG pCO2 43.9 mmHg (35-45) 11/23/22 11:41 ABG pO2 129.0 mmHg (80.0-100.0) H 11/23/22 11:41 ABG HCO3 31.2 mmol/L (22-26) H 11/23/22 11:41 ABG Base Excess 6.5 mmol/L (-2.0-2.0) H 11/23/22 11:41 Stephen Test Pos 11/23/22 11:41 Hematocrit 44.1 % (37-47) 11/23/22 11:41 Hgb O2 Saturation 98.7 % (95-100) 11/23/22 11:41 Carboxyhemoglobin 0.5 %THgb (0.4-20.1) 11/23/22 11:41 Methemoglobin 0.3 % (0.4-1.5) L 11/23/22 11:41 Total Hemoglobin 14.4 g/dL (12-16) 11/23/22 11:41 O2 Delivery Device Nc 11/23/22 11:41 O2 Liters/Min 5.0 % 11/23/22 11:41 FiO2 40.0 % 11/23/22 11:41 Supervisor Payroll ID [email or web address] 11/23/22 11:41 Sodium 138 mmol/L (136-145) 11/23/22 11:38 Potassium 4.1 mmol/L (3.5-5.1) 11/23/22 11:38 Chloride 99 mmol/L (98-107) 11/23/22 11:38 Carbon Dioxide 29 mmol/L (22-29) 11/23/22 11:38 Anion Gap 14.1 (5-19) 11/23/22 11:38 BUN 8 mg/dL (8-23) 11/23/22 11:38 Creatinine 0.5 mg/dL (0.5-0.9) 11/23/22 11:38 GFR Calculation Not Reportable 11/23/22 11:38 Glucose 120 mg/dL (65-115) H 11/23/22 11:38 Calculated Osmolality 286 mOsm/kg (285-295) 11/23/22 11:38 Calcium 9.5 mg/dL (8.5-10.5) 11/23/22 11:38 Total Bilirubin 1.0 mg/dL (0.15-1.2) 11/23/22 11:38 AST 15 U/L (0-32) 11/23/22 11:38 ALT 7 U/L (0-33) 11/23/22 11:38 Alkaline Phosphatase 65 U/L (35-105) 11/23/22 11:38 NT-Pro-B Natriuret Pep 324 pg/mL (0-125) H 11/23/22 11:38 Total Protein 6.9 g/dL (6.6-8.7) 11/23/22 11:38 Albumin 4.3 g/dL (3.5-5.2) 11/23/22 11:38 Globulin 2.6 g/dL (1.3-4.6) 11/23/22 11:38 Urine Color Yellow (Yellow) 11/23/22 11:40 Urine Appearance Clear (CLEAR) 11/23/22 11:40 Urine pH 7 (5-7) 11/23/22 11:40 Ur Specific [place] 1.005 (1.005-1.030) 11/23/22 11:40 Urine Protein Neg (Negative) 11/23/22 11:40 Urine Glucose (UA) Norm (Normal) 11/23/22 11:40 Urine Ketones Negative (Negative) 11/23/22 11:40 Urine Blood Neg (Negative) 11/23/22 11:40 Urine Nitrate Negative (Negative) 11/23/22 11:40 Urine Bilirubin Neg (Negative) 11/23/22 11:40 Urine Urobilinogen Norm mg/dL (Negative) 11/23/22 11:40 Ur Leukocyte Esterase Negative (Negative) 11/23/22 11:40 SARS-CoV-2 Ag (Rapid) negative (Negative) 11/23/22 12:00 Discharge Plan Discharge Patient Disposition: Admitted As Inpatient Clinical Impression: COPD (chronic obstructive pulmonary disease), Weakness Condition: Stable Prescriptions: No Action albuterol sulfate [Ventolin HFA] 90 mcg/actuation HFA aerosol inhaler 1 - 2 puff INHALATION Q4H PRN (Reason: Shortness Of Breath) hydrocodone-acetaminophen 10-325 mg Tablet 1 - 2 tab PO QID PRN (Reason: Pain) citalopram 10 mg tablet 10 mg PO DAILY clonazepam 0.5 mg Tablet 1 mg PO QID PRN (Reason: Anxiety) aspirin 81 mg Tablet,Delayed Release (Dr/Ec) 81 mg PO BEDTIME ascorbic acid (vitamin C) [Vitamin C] 500 mg Tablet 500 mg PO DAILY quetiapine 50 mg tablet 50 mg PO DAILY budesonide-formoterol [Symbicort] 80-4.5 mcg/actuation HFA aerosol inhaler 1 inh inhalation BID Qty: 10.2 3RF potassium chloride 20 mEq tablet extended release 20 meq PO DAILY Qty: 7 0RF Referrals: Cuauhtemoc Atkins MD [Physician] - Coding Level of Care Code ED Office Support Specialist for Ji Melgar
[2022-11-23 11:49] LABS: Bilirubin Urine Neg (Negative); Blood Urine Neg (Negative); Glucose Urine UA Norm (Normal); Ketones Urine Negative (Negative); Leukocyte Esterase Urine Negative (Negative); Nitrate Urine Negative (Negative); Protein Urine Neg (Negative); Specific Gravity, Urine 1.005 (1.005-1.030); Urine Appearance Clear (CLEAR); Urine Color Yellow (Yellow); Urobilinogen Urine Norm (Negative); pH Urine 7 (5-7)
[2022-11-23 11:51] LABS: Basophils # 0.1 10^3/uL (0.0-0.1); Basophils % 0.8 %; Eosinophils # 0.2 10^3/uL (0.0-0.8); Eosinophils % 2.6 %; Hematocrit 41.6 % (36-47); Lymphocytes # 1.6 10^3/uL (0.8-4.8); Lymphocytes % 19.6 %; Mean Corpuscular HGB Conc 33.4 g/dL (30-55); Mean Corpuscular Volume 95.9 fl (85-98); Mean Platelet Volume 10.7 fL (7.4-10.4); Monocytes % 12.3 %; Neutrophils # 5.15 10^3/uL (1.8-7.7); Neutrophils % 64.4 %; Nucleated Red Blood Cells % 0 %; Platelet Count 305 10^3/cmm (157-399); Red Blood Count 4.34 10^6/uL (3.85-5.65); Red Cell Distribution Width 14.6 % (12.1-15.1); White Blood Count 7.99 10^3/uL (3.29-11.43)
[2022-11-23 11:53] LABS: ABG PCO2 43.9 mmHg (35-45); ABG PH Result 7.46 (7.35-7.45); Arterial Blood Gas Hematocrit 44.1 % (37-47); Base Excess ABG 6.5 mmol/L (-2.0-2.0); Blood Gas Allen Test Pos; Blood Gas Operator Identificat glc; Blood Gas Sample Site Radial, right; Blood Gas Sample Type Arterial; Carboxyhemoglobin 0.5 %THgb (0.4-20.1); HCO3 ABG 31.2 mmol/L (22-26); HGB O2 Sat 98.7 % (95-100); Methemoglobin 0.3 % (0.4-1.5); Oxygen Device NC; Total Hemoglobin 14.4 g/dL (12-16)
[2022-11-23] MEDS: CLONazepam 1 mg Tablet PO (12:04)
[2022-11-23 12:18] LABS: Alanine Aminotransferase 7 U/L (0-33); Albumin Level 4.3 g/dL (3.5-5.2); Alkaline Phosphatase 65 U/L (35-105); Anion Gap 14.1 (5-19); Aspartate Amino Transferase 15 U/L (0-32); Blood Urea Nitrogen 8 mg/dL (8-23); Calcium 9.5 mg/dL (8.5-10.5); Carbon Dioxide 29 mmol/L (22-29); Chloride 99 mmol/L (98-107); Creatinine Clr Calc Pharmacy 49.5616; Globulin 2.6 g/dL (1.3-4.6); Glucose 120 mg/dL (65-115); NT Pro B Type Natriuretic Pept 324 pg/mL (0-125); Osmolality Calculated 286 mOsm/kg (285-295); Potassium 4.1 mmol/L (3.5-5.1); Sodium 138 mmol/L (136-145); Total Protein 6.9 g/dL (6.6-8.7)
--- NOTE | 2022-11-23 12:31 | PC.PHAR ---
Addendum entered by Peace Goncalves 11/23/22 12:39: VERIFIED WITH [facility] LEVOTHYROXINE 125 MCG 1 DAILY FILLED 03/09 30DS Original Note: PT VERY CONFUSED ABOUT MEDICATIONS. STATES SHE IS ONLY ON BREATHING MEDICATIONS AND IS OUT OF ALL OTHER MEDS. VERIFIED WITH [facility] CITALOPRAM 10 MG DAILY, CLONAZEPAM 0.5MG 2 TABS 4 TIMES DAILY NEEDED FOR ANXIETY. PHARMACY ALSO FILLED HYDROCODONE-ACETAMINOPHEN 10-325 1-2 TABS 4 TIME DAILY NEEDED. PHARMACY UNABLE TO VERIFY LEVOTHYROXINE 125 MCG DAILY. PHARMACY STATES PT CALLS OFTEN, CONFUSED ABOUT MEDICATIONS. THEY FEEL SHE IS IN NEED OF HOME HEALTH OR SOME KIND OF HELP.
[2022-11-23 12:37] LABS: SARS Covid-2 Antigen negative (Negative)
[2022-11-23] MEDS: HYDROcodone-acetaminophen 10-325 mg Tablet 1 TAB PO ×2 (13:30→20:59)
[2022-11-23 13:32] VITALS: BP 132/91; PULSE 96; RESP 18; O2SAT 98
--- NOTE | 2022-11-23 13:46 | DCPLANNER ---
manager medicaid seen patient due to no primary care physician. Patient stated that she has an appointment scheduled with Dr. Gonzalez to establish care.
[2022-11-23 16:37] VITALS: BP 144/85; PULSE 82; RESP 20; TEMP 36.3; O2SAT 92
--- NOTE | 2022-11-23 16:40 | USCV_ITS ---
Socorro Montes De Oca Age: 72 Gender: F : 1950 Exam Date: 11/23/2022 19:52 Ordering Phys: Frank Sanchez MD Technologist: CT Exam Location: [facility] [place] Indication: copd BP: 144 / 80 HR: 80 Rhythm: Sinus Technical Quality: Poor secondary to COPD MEASUREMENTS (Male / Female) Normal Values 2D ECHO LVOT Diameter 2.0 cm LV Ejection Fraction MOD 2C 44.6 % LV Ejection Fraction 2C AL 43.1 % LA Diameter 3.4 cm Aorta at Sinotubular Diameter 2.8 cm IVC Diameter 2.0 cm M-MODE Aortic Annulus Diameter 2.8 cm LA Ao Ratio MM 1.3 MV E Point Septal Separation 1.1 cm DOPPLER AV Peak Velocity 131.0 cm/s LVOT Peak Velocity 111.0 cm/s AV Area Cont Eq vti 2.8 cm squared AV Area Cont Eq pk 2.7 cm squared MV Area PHT 12.9 cm squared Mitral E to A Ratio 1.2 MV E' Velocity 40.5 cm/s Mitral E to MV E' Ratio 9.8 Mitral E to LV E' Lateral Ratio 10.8 Mitral E to LV E' Septal Ratio 9.0 TR Peak Velocity 125.0 cm/s TR Peak Gradient 6.3 mmHg TV Peak E Velocity 84.0 cm/s Right Atrial Pressure 8.0 mmHg Pulmonary Artery Systolic Pressu 14.3 mmHg PV Peak Velocity 100.0 cm/s FINDINGS Left Ventricle Normal LV size and ejection fraction. Technically difficult study since there was only substernal views Right Ventricle Thickening of the right ventricular free wall. Mildly dilated right ventricle with normal ejection Right Atrium Possibly of normal size Left Atrium Possibly of normal Mitral Valve Moderate mitral annular calcification. Aortic Valve No gross abnormalities noted Tricuspid Valve No gross abnormalities noted Pulmonic Valve No gross abnormalities noted Pericardium Trivial pericardial effusion. Aorta Normal aortic annulus size. IVC Could not be visualized CONCLUSIONS Technically limited study(only subcostal views were obtained) Possibly normal LV size and ejection fraction Right ventricular appears to be mildly dilated with normal ejection fraction. Some features of right ventricular hypertrophy. The atria appear to be of normal size Possibly no significant valvular lesions based on the subcostal views obtained as above The PA pressure estimation is difficult because of the poor Doppler signals No similar previous studies are available for comparison Dr Giorgi Justin MD FACC (Electronically Signed) Final Date: 24 November 2022 17:36 S
--- NOTE | 2022-11-23 16:41 | P.HP_ITS ---
Providers/Chief Complaint Admitting Physician: Frank Sanchez MD Chief Complaint: weakness, resp distress History of Present Illness Socorro Montes De Oca is a 72 year old female with past medical history of severe COPD, former smoker quit in 2004, anxiety, panic disorder chronically on 6 L of oxygen supplementation, hypothyroidism on chronic opiate therapy, recurrent admissions for respiratory distress presented to the ER today because of slight difficulty in breathing more than baseline though saturating at baseline on 6 L, generaliz ed weakness which has been getting worse for last 1 week for which she is not able to take care of her ADLs. Patient is complaining of mild myalgias. States she felt sick around couple of weeks ago with runny nose and cough and since then has been getting more and more weak. Currently she is not able to take care of her ADLs and is dependent on others to help her with her meals and medications. She denies any nausea, vomiting, headache, dizziness, chest pain, increased cough than baseline, orthopnea. Review of Systems General: Reports: 10 or more systems reviewed and unremarkable except in HPI and below Const: Denies: fever(s), chills, body aches, change in appetite, change in weight, malaise, night sweats, diaphoresis, change in sleep pattern, daytime sleepiness or snoring Eyes: Denies: change in vision, blurry vision, photophobia, eye discomfort or eye discharge ENMT: Denies: throat pain, enlarged tonsils, hoarseness, mouth pain, oral sores, dry mouth, tinnitus, nasal congestion or post nasal drip Card: Denies: chest pain, palpitations, irregular heart rhythm, edema, swelling of feet/ankles, lightheadedness, syncope, pre-syncope, dyspnea on exertion, orthopnea, leg pain with exertion or acrocyanosis Resp: Denies: dyspnea, productive cough, non-productive cough, wheezing, stridor, pain on inspiration, change in phlegm color, hemoptysis or chest congestion GI: Denies: abdominal pain, nausea, vomiting, hematemesis, coffee ground emesis, dysphagia, heartburn, diarrhea, constipation, bloating, GI cramping, change in bowel habits, pain on defecation, hematochezia or melena : Denies: flank pain, dysuria, urinary frequency, urinary urgency, urinary hesitancy, nocturia or hematuria Musc: Denies: neck pain, back pain, extremity pain, joint pain, joint swelling, joint redness, joint stiffness or limited range of motion Neuro: Denies: headache(s), numbness in extremities, weakness in extremities, sensory changes, lack of coordination, difficulty walking, frequent falls, dizziness, vertigo, confusion, Slurred speech present, difficulty communicating thoughts or seizure-like activity Psych: Denies: anxiety, depression, mood swings, panic attacks, hopelessness or irritability Endo: Denies: polyuria, polydipsia, tired all the time, cold intolerance, excessive sweating, flushing or heat intolerance Arnav/Lymph: Denies: easy bruising or easy bleeding All/Imm: Denies: tongue swelling, facial swelling or acute wheezing Medications/Allergies Home Medications Medication Instructions Recorded Confirmed Last Taken Type albuterol sulfate 90 mcg/actuation 1 - 2 puff inhalation Q4H PRN 08/21/19 11/23/22 Unknown History aerosol inhaler (Ventolin HFA) Shortness Of Breath hydrocodone 10 mg-acetaminophen 1 - 2 tab PO QID PRN Pain 02/07/22 11/23/22 09/02/22 History 325 mg tablet ascorbic acid (vitamin C) 500 mg 500 mg PO DAILY 03/08/22 11/23/22 09/02/22 History tablet (Vitamin C) aspirin 81 mg tablet,delayed 81 mg PO BEDTIME 03/08/22 11/23/22 09/02/22 History release quetiapine 50 mg tablet 50 mg PO DAILY 09/03/22 11/23/22 09/02/22 History budesonide-formoterol HFA 80 1 inh inhalation BID #10.2 grams 09/04/22 11/23/22 Unknown Rx mcg-4.5 mcg/actuation aerosol inhaler (Symbicort) potassium chloride 20 mEq 20 meq PO DAILY #7 tabs 11/21/22 11/23/22 Unknown Rx tablet,extended release citalopram 10 mg tablet 10 mg PO DAILY 11/23/22 11/23/22 Unknown History clonazepam 0.5 mg tablet 1 mg PO QID PRN Anxiety 11/23/22 11/23/22 Unknown History Allergies Allergy/AdvReac Type Severity Reaction Status Date / Time olanzapine [From Zyprexa] Allergy Severe edema Verified 11/23/22 11:26 PFSH Acute PFSH: Medical History (Updated 11/23/22 @ 17:19 by Frank Sanchez MD) Acute exacerbation of chronic obstructive airways disease Acute on chronic respiratory failure with hypoxia and hypercapnia Acute respiratory distress Acute respiratory distress Asthma-COPD overlap syndrome Chronic respiratory failure with hypoxia COPD (chronic obstructive pulmonary disease) Opioid contract exists Panic anxiety syndrome Panic attacks Right lower lobe pneumonia Surgical History History of appendectomy History of cholecystectomy History of hysterectomy Hx of tonsillectomy Family History Other No pertinent family history Social History Smoking and tobacco status: former smoker Quit status (tobacco): has quit using tobacco Year quit tobacco: 2014 - 1PPD x 40 Years Alcohol intake: never Substance/Drug Use: never Lives independently: Yes Household members: none Current occupational status: disabled Pets and animals: Yes Pets & animals: dog(s) Do you think of yourself as: Straight/Heterosexual Current gender identity: Female Vitals/I&O/Wt Last Vital Signs Pulse 96 11/23/22 13:32 Resp 18 11/23/22 13:32 BP 132/91 11/23/22 13:32 Pulse Ox 98 11/23/22 13:32 O2 Del Method Nasal Cannula 11/23/22 15:35 O2 Flow Rate 4 11/23/22 13:32 Weight last 48 hrs Weight 58.967 kg Physical Exam Narrative: General: No acute distress, AO x3, NC oxygen supplementation,anxious,tearful HEENT: PERRLA, pupils bilaterally equal and reactive Chest:Bronchial breath sounds b/l ,decreased air entry, but equal air entry bilaterally with diffuse ronchi CVS: S1-S2 regular, no murmurs, no tachycardia, no gallops, no rubs Abdomen: Soft, nontender, no organomegaly, bowel sounds present, morbidly obese Neuro: No focal deficits, no facial deformity, AO x3, power 5/5 in all limbs Data 11/24/22 04:20 11/24/22 04:20 A&P Assessment and plan (1) Weakness: (2) COPD (chronic obstructive pulmonary disease): (3) Chronic respiratory failure with hypoxia: (4) Bipolar 1 disorder: (5) Anxiety disorder: (6) Goals of care, counseling/discussion: Plan Generalized weakness: Multiple blood work and x-ray and urine studies done in the ER on admission. Chest x-ray negative for consolidation, UA negative for signs of UTI, no leukocytosis. Most likely by the sound of history it possible that patient has generalized weakness that she is possibly getting over a viral prodrome in setting of severe COPD. Check vitamin B12, TSH, folate, cortisol, procalcitonin, iron panel, A1c. Weakness could be a sequelae of severe COPD. ABG done in the ER does not show hypercapnia and acidosis. For now start patient on IV Solu-Medrol 40 mg every 8 hourly. Patient would benefit from a slow steroid taper as an outpatient and oral steroids on a daily basis chronically at a minimal dose of 5 or 10 mg daily. Start on prophylaxis azithromycin 250 mg every other day. No signs of pneumonia for now. Continue other chronic medications including aspirin, citalopram, hydrocodone, quetiapine. DuoNebs every 6 hours, budesonide twice daily. Goals of care discussion: Patient would want to remain DNR/DNI. We discussed that most of her symptoms most likely are a sequelae of severe COPD and if she is not able to take care of her ADLs it is possible that she needs to go to SNF for long-term. Patient states she is worried about her dog who she lives with and she is not able to find anybody to take care of the dog and so for now would want to try to go home if possible. We discussed that we can try for home health while being on oral steroid taper and chronically on steroid going forward to see if that helps along with possibility of in-home services. Patient states she has an appointment with a primary care provider on 12/03. We discussed if the steroids are not helping her she can always reach out to her PCP to try to get her to SNF. Patient is agreeable. Case management alerted. Attestations Medical Necessity Statement*: under observation for management of generalized weakness in setting of severe COPD by infectious source is ruled out Diagnoses Weakness R53.1 COPD (chronic obstructive pulmonary disease) J44.9 Chronic respiratory failure with hypoxia J96.11 Bipolar 1 disorder F31.9 Anxiety disorder F41.9 Goals of care, counseling/discussion Z71.89
[2022-11-23 17:07] LABS: Iron 86 ug/dL (37-145); Percent Saturation 27.3 % (20-50); Total Iron Binding Capacity 314 mcg/dl; Unsaturated Iron Binding 228 ug/dL (112-347)
[2022-11-23 17:13] LABS: Procalcitonin 6.28 ng/mL (0-0.5)
[2022-11-23 17:22] LABS: Vitamin B12 280 pg/mL (232-1245)
[2022-11-23] MEDS: azithromycin 250 mg Tablet 500 MG PO (17:27)
[2022-11-23] MEDS: CLONazepam 0.5 mg Tablet 1 MG PO (17:27)
[2022-11-23] MEDS: methylPREDNISolone sod succ 40 MG in water for injection-sterile 1 ML 12 MG IVP (17:28)
[2022-11-23] MEDS: FUROsemide 40 mg Tablet PO (17:28)
[2022-11-23] MEDS: heparin 5,000 unit/mL INJ 1 mL 5000 UNIT SUBCUT (17:28)
[2022-11-23] MEDS: cyanocobalamin 1,000 mcg/mL SDV 1000 MCG IM (18:41)
[2022-11-23 19:50] VITALS: BP 115/61; PULSE 96; RESP 14; TEMP 36.4; O2SAT 99
[2022-11-23 20:00] VITALS: PULSE 81; RESP 16; O2SAT 100
[2022-11-23] MEDS: ipratropium-albuterol 3 mL Neb INHALATION (20:42)
[2022-11-23] MEDS: budesonide 0.5 mg/2 mL Neb INHALATION (20:42)
[2022-11-23] MEDS: aspirin 81 mg EC Tablet PO (20:56)
[2022-11-24] VITALS (10 sets, daily range): BP systolic 107–149; BP diastolic 60–84; PULSE 72–95; RESP 14–17; TEMP 36–36.4; O2SAT 92–99; BMI 25.4
[2022-11-24] MEDS: methylPREDNISolone sod succ 40 MG in water for injection-sterile 1 ML 12 MG IVP ×2 (01:26→10:21)
[2022-11-24] MEDS: CLONazepam 0.5 mg Tablet 1 MG PO (03:11)
[2022-11-24] MEDS: ipratropium-albuterol 3 mL Neb INHALATION ×2 (03:32→08:37)
[2022-11-24] MEDS: heparin 5,000 unit/mL INJ 1 mL 5000 UNIT SUBCUT (05:20)
[2022-11-24 05:21] LABS: Basophils % 0.2 %; Hematocrit 40.9 % (36-47); Lymphocytes # 0.7 10^3/uL (0.8-4.8); Lymphocytes % 5.4 %; Mean Corpuscular HGB Conc 32.5 g/dL (30-55); Mean Corpuscular Hemoglobin 31.8 pg (27-33); Mean Corpuscular Volume 97.8 fl (85-98); Mean Platelet Volume 11.2 fL (7.4-10.4); Monocytes # 0.3 10^3/uL (0.2-0.9); Monocytes % 2.1 %; Neutrophils # 11.12 10^3/uL (1.8-7.7); Neutrophils % 91.6 %; Nucleated Red Blood Cells % 0 %; Platelet Count 259 10^3/cmm (157-399); Red Blood Count 4.18 10^6/uL (3.85-5.65); Red Cell Distribution Width 14.7 % (12.1-15.1); White Blood Count 12.12 10^3/uL (3.29-11.43)
[2022-11-24] MEDS: HYDROcodone-acetaminophen 10-325 mg Tablet 1 TAB PO ×2 (05:29→14:07)
[2022-11-24 05:34] LABS: Estmated Average Glucose 103; Hemoglobin A1C 5.2 % (4.0-6.0)
[2022-11-24 05:40] LABS: Alanine Aminotransferase 7 U/L (0-33); Albumin Level 4.1 g/dL (3.5-5.2); Alkaline Phosphatase 66 U/L (35-105); Anion Gap 14.6 (5-19); Aspartate Amino Transferase 14 U/L (0-32); Blood Urea Nitrogen 16 mg/dL (8-23); Calcium 9.4 mg/dL (8.5-10.5); Carbon Dioxide 30 mmol/L (22-29); Chloride 99 mmol/L (98-107); Creatinine Clr Calc Pharmacy 49.5616; Globulin 2.2 g/dL (1.3-4.6); Glucose 147 mg/dL (65-115); Magnesium 2.2 mg/dL (1.7-2.3); Osmolality Calculated 292 mOsm/kg (285-295); Phosphorus 4.7 mg/dL (2.5-4.5); Potassium 4.6 mmol/L (3.5-5.1); Sodium 139 mmol/L (136-145); Total Bilirubin 0.7 mg/dL (0.15-1.2); Total Protein 6.3 g/dL (6.6-8.7)
[2022-11-24 05:42] LABS: Cholesterol 188 mg/dL (0-200); HDL Cholesterol 94 mg/dL (60-100); LDL Cholesterol Calculated 82 mg/dL (50-129); LDL HDL Ratio 0.87 RATIO (0.00-3.22); Triglycerides 61 mg/dL (0-150)
[2022-11-24 05:57] LABS: Folate Level < 20.0 ng/mL (4.8-37.3)
[2022-11-24] MEDS: budesonide 0.5 mg/2 mL Neb INHALATION (08:37)
--- NOTE | 2022-11-24 09:53 | PM.DCS ---
Discharge Providers Date of Admission: 11/23/22 13:02 Date of Discharge: November 24, 2022 Attending Provider at Admission: Frank Sanchez MD Attending Provider at Discharge: Frank Sanchez MD Diagnoses at Discharge Discharge Diagnosis (1) Weakness: Status: Acute (2) COPD (chronic obstructive pulmonary disease): Status: Acute (3) Chronic respiratory failure with hypoxia: Status: Acute (4) Bipolar 1 disorder: Status: Acute (5) Anxiety disorder: Status: Acute (6) Goals of care, counseling/discussion: Status: Acute Reason for Visit Reason for Visit: weakness, resp distress Hospital Course Hospital Course Socorro Montes De Oca is a 72 year old female with past medical history of severe COPD, former smoker quit in 2004, anxiety, panic disorder chronically on 6 L of oxygen supplementation, hypothyroidism on chronic opiate therapy, recurrent admissions for respiratory distress presented to the ER today because of slight difficulty in breathing more than baseline though saturating at baseline on 6 L, generalized weakness which has been getting worse for last 1 week for which she is not able to take care of her ADLs.? Patient is complaining of mild myalgias.? States she felt sick around couple of weeks ago with runny nose and cough and since then has been getting more and more weak.? Currently she is not able to take care of her ADLs and is dependent on others to help her with her meals and medications.? She denies any nausea, vomiting, headache, dizziness, chest pain, increased cough than baseline, orthopnea. Patient was admitted to the hospital for further evaluation and management of generalized weakness. On admission multiple infectious sources including pneumonia and UTI were ruled out. It is believed patient's symptoms are most likely in setting of worsening/end-stage COPD. Cortisol levels were checked and were found to be on the higher side. TSH was stable though vitamin B12 deficiency was found. Safe discharge planning of discharge to SNF versus home with home meds were discussed in detail. We discussed that most of her symptoms most likely are a sequelae of severe COPD and if she is not able to take care of her ADLs it is possible that she needs to go to SNF for long-term.? Patient states she is worried about her dog who she lives with and she is not able to find anybody to take care of the dog and so for now would want to try to go home if possible.? We discussed that we can try for home health while being on oral steroid taper and chronically on steroid going forward to see if that helps along with possibility of in-home services. Patient states she has an appointment with a primary care provider on 12/03.? We discussed if the steroids are not helping her she can always reach out to her PCP to try to get her to SNF.? Patient is agreeable. She has been discharged on steroid taper with advised to continue 5 mg of prednisone daily after completion of the taper. She is to take azithromycin 250 mg every other day for prophylaxis. She is to see a primary care provider onsite appointment and to see pulmonology within next 1 month. Appointments for both has been made for the patient. Physical Exam Narrative: General: No acute distress, AO x3, NC oxygen supplementation,anxious,tearful HEENT: PERRLA, pupils bilaterally equal and reactive Chest:Bronchial breath sounds b/l ,decreased air entry, but equal air entry bilaterally with diffuse ronchi CVS: S1-S2 regular, no murmurs, no tachycardia, no gallops, no rubs Abdomen: Soft, nontender, no organomegaly, bowel sounds present, morbidly obese Neuro: No focal deficits, no facial deformity, AO x3, power 5/5 in all limbs Discharge Data Studies Completed and Pending Completed Studies During Hospitalization Category Date Time Status XR chest 1V portable [id number] Stat Exams 11/23/22 11:20 Completed Pending at discharge Category Date Time Status CV. echo complete* [id number] Routine Ultrasound 11/23/22 16:40 Taken Laboratory Results WBC 12.12 10^3/uL (3.29-11.43) H 11/24/22 04:20 RBC 4.18 10^6/uL (3.85-5.65) 11/24/22 04:20 Hgb 13.30 g/dL (11.27-16.99) 11/24/22 04:20 Hct 40.9 % (36-47) 11/24/22 04:20 MCV 97.8 fl (85-98) 11/24/22 04:20 MCH 31.8 pg (27-33) 11/24/22 04:20 MCHC 32.5 g/dL (30-55) 11/24/22 04:20 RDW 14.7 % (12.1-15.1) 11/24/22 04:20 Plt Count 259 10^3/cmm (157-399) 11/24/22 04:20 MPV 11.2 fL (7.4-10.4) H 11/24/22 04:20 Neut % (Auto) 91.6 % 11/24/22 04:20 Lymph % (Auto) 5.4 % 11/24/22 04:20 [place] % (Auto) 2.1 % 11/24/22 04:20 Eos % (Auto) 0.0 % 11/24/22 04:20 Baso % (Auto) 0.2 % 11/24/22 04:20 Neut # (Auto) 11.12 10^3/uL (1.8-7.7) H 11/24/22 04:20 Lymph # (Auto) 0.7 10^3/uL (0.8-4.8) L 11/24/22 04:20 [place] # (Auto) 0.3 10^3/uL (0.2-0.9) 11/24/22 04:20 Eos # (Auto) 0.0 10^3/uL (0.0-0.8) 11/24/22 04:20 Baso # (Auto) 0.0 10^3/uL (0.0-0.1) 11/24/22 04:20 Nucleated RBC % (auto) 0 % 11/24/22 04:20 Nucleated RBCs # 0.0 /100WBC 11/24/22 04:20 Specimen Type Arterial 11/23/22 11:41 Sample Site Radial, right 11/23/22 11:41 ABG pH 7.46 (7.35-7.45) H 11/23/22 11:41 ABG pCO2 43.9 mmHg (35-45) 11/23/22 11:41 ABG pO2 129.0 mmHg (80.0-100.0) H 11/23/22 11:41 ABG HCO3 31.2 mmol/L (22-26) H 11/23/22 11:41 ABG Base Excess 6.5 mmol/L (-2.0-2.0) H 11/23/22 11:41 Stephen Test Pos 11/23/22 11:41 Hematocrit 44.1 % (37-47) 11/23/22 11:41 Hgb O2 Saturation 98.7 % (95-100) 11/23/22 11:41 Carboxyhemoglobin 0.5 %THgb (0.4-20.1) 11/23/22 11:41 Methemoglobin 0.3 % (0.4-1.5) L 11/23/22 11:41 Total Hemoglobin 14.4 g/dL (12-16) 11/23/22 11:41 O2 Delivery Device Nc 11/23/22 11:41 O2 Liters/Min 5.0 % 11/23/22 11:41 FiO2 40.0 % 11/23/22 11:41 Track Grinder Operator ID glc 11/23/22 11:41 Sodium 139 mmol/L (136-145) 11/24/22 04:20 Potassium 4.6 mmol/L (3.5-5.1) 11/24/22 04:20 Chloride 99 mmol/L (98-107) 11/24/22 04:20 Carbon Dioxide 30 mmol/L (22-29) H 11/24/22 04:20 Anion Gap 14.6 (5-19) 11/24/22 04:20 BUN 16 mg/dL (8-23) 11/24/22 04:20 Creatinine 0.6 mg/dL (0.5-0.9) 11/24/22 04:20 GFR Calculation Not Reportable 11/24/22 04:20 Glucose 147 mg/dL (65-115) H 11/24/22 04:20 Estimat Average Glucose 103 11/24/22 04:20 Hemoglobin A1c 5.2 % (4.0-6.0) 11/24/22 04:20 Calculated Osmolality 292 mOsm/kg (285-295) 11/24/22 04:20 Calcium 9.4 mg/dL (8.5-10.5) 11/24/22 04:20 Phosphorus 4.7 mg/dL (2.5-4.5) H 11/24/22 04:20 Magnesium 2.2 mg/dL (1.7-2.3) 11/24/22 04:20 Iron 86 ug/dL (37-145) 11/23/22 11:38 TIBC 314 mcg/dl 11/23/22 11:38 % Saturation 27.3 % (20-50) 11/23/22 11:38 Unsat Iron Binding 228 ug/dL (112-347) 11/23/22 11:38 Total Bilirubin 0.7 mg/dL (0.15-1.2) 11/24/22 04:20 AST 14 U/L (0-32) 11/24/22 04:20 ALT 7 U/L (0-33) 11/24/22 04:20 Alkaline Phosphatase 66 U/L (35-105) 11/24/22 04:20 NT-Pro-B Natriuret Pep 324 pg/mL (0-125) H 11/23/22 11:38 Total Protein 6.3 g/dL (6.6-8.7) L 11/24/22 04:20 Albumin 4.1 g/dL (3.5-5.2) 11/24/22 04:20 Globulin 2.2 g/dL (1.3-4.6) 11/24/22 04:20 Triglycerides 61 mg/dL (0-150) 11/24/22 04:20 Cholesterol 188 mg/dL (0-200) 11/24/22 04:20 LDL Cholesterol, Calc 82 mg/dL (50-129) 11/24/22 04:20 HDL Cholesterol 94 mg/dL (60-100) 11/24/22 04:20 LDL/HDL Ratio 0.87 RATIO (0.00-3.22) 11/24/22 04:20 Cholesterol/HDL Ratio 2.00 mg/dL (0.0-4.40) 11/24/22 04:20 Vitamin B12 280 pg/mL (232-1245) 11/23/22 11:38 Folate < 20.0 ng/mL (4.8-37.3) 11/24/22 04:20 Procalcitonin 6.28 ng/mL (0-0.5) H 11/23/22 11:38 Random Cortisol 56.40 ug/dL (2.47-19.5) H 11/23/22 11:38 Urine Color Yellow (Yellow) 11/23/22 11:40 Urine Appearance Clear (CLEAR) 11/23/22 11:40 Urine pH 7 (5-7) 11/23/22 11:40 Ur Specific [place] 1.005 (1.005-1.030) 11/23/22 11:40 Urine Protein Neg (Negative) 11/23/22 11:40 Urine Glucose (UA) Norm (Normal) 11/23/22 11:40 Urine Ketones Negative (Negative) 11/23/22 11:40 Urine Blood Neg (Negative) 11/23/22 11:40 Urine Nitrate Negative (Negative) 11/23/22 11:40 Urine Bilirubin Neg (Negative) 11/23/22 11:40 Urine Urobilinogen Norm mg/dL (Negative) 11/23/22 11:40 Ur Leukocyte Esterase Negative (Negative) 11/23/22 11:40 SARS-CoV-2 Ag (Rapid) negative (Negative) 11/23/22 12:00 Vitals Last Vital Signs Temp 97.6 F 11/24/22 07:28 Pulse 74 11/24/22 08:10 Resp 16 11/24/22 08:00 BP 115/68 11/24/22 07:28 Pulse Ox 97 11/24/22 08:00 O2 Del Method Nasal Cannula 11/24/22 08:00 O2 Flow Rate 5 11/24/22 08:00 Discharge Plan Discharge Patient Disposition: Home Health Service Condition: Stable Prescriptions: New azithromycin 250 mg Tablet 250 mg PO EVERY OTHER DAY 30 Days Qty: 15 0RF prednisone 10 mg tablet See Taper PO DIRECTED Qty: 42 0RF Taper: predniSONE 60-10 60 mg Daily for 2 Days and 0 Hour 50 mg Daily for 2 Days and 0 Hour 40 mg Daily for 2 Days and 0 Hour 30 mg Daily for 2 Days and 0 Hour 20 mg Daily for 2 Days and 0 Hour 10 mg Daily for 2 Days and 0 Hour Rx Instructions: see taper instructions prednisone 5 mg tablet 5 mg PO DAILY Qty: 30 0RF Rx Instructions: Start daily after finishing steroid taper cyanocobalamin (vitamin B-12) 1,000 mcg capsule 1,000 mcg PO DAILY Qty: 90 0RF Continued albuterol sulfate [Ventolin HFA] 90 mcg/actuation HFA aerosol inhaler 1 - 2 puff INHALATION Q4H PRN (Reason: Shortness Of Breath) hydrocodone-acetaminophen 10-325 mg Tablet 1 - 2 tab PO QID PRN (Reason: Pain) citalopram 10 mg tablet 10 mg PO DAILY clonazepam 0.5 mg Tablet 1 mg PO QID PRN (Reason: Anxiety) aspirin 81 mg Tablet,Delayed Release (Dr/Ec) 81 mg PO BEDTIME ascorbic acid (vitamin C) [Vitamin C] 500 mg Tablet 500 mg PO DAILY quetiapine 50 mg tablet 50 mg PO DAILY budesonide-formoterol [Symbicort] 80-4.5 mcg/actuation HFA aerosol inhaler 1 inh inhalation BID Qty: 10.2 3RF potassium chloride 20 mEq tablet extended release 20 meq PO DAILY Qty: 7 0RF Discharge Orders: Discharge Order (Routine); Ordered 11/24/22 Ordered By: Frank Sanchez Referrals: [facility] ([facility]) [Outside] ([facility] will follow up with you once you have seen Dr Gonzalez on 11/30 at 09:30. Make sure you make it to this appointment. ) Ramin Parks MD [Physician] - 12/15/22 10:45 am () Benjamin Gonzalez MD [Physician] - 11/30/22 9:30 am Discharge Diet: Regular Discharge Activity: Resume usual activity and Increase activity as tolerated Patient Instructions: COPD, Prednisone (By mouth) (predniSONE Intensol, Prednicot, Deltasone, Dinorah), Azithromycin (By mouth), COPD Stoplight, Opioid Safety Activity Restrictions/Additional Instructions: Continue taking steroid taper as directed. After finishing of the taper continue 5 mg of prednisone daily. Take azithromycin 250 mg every other day. Please follow-up with your primary care provider and with pulmonology on set appointments. Discharge Attestations Time Spent in Discharge Care*: greater than 30 min Specific Discharge Activities: educating patient, discussing with pcp/other providers, discussing with telehealth case manager/social workers/dc planners, documenting/other paperwork and evaluating patient/reviewing data Status at Discharge: Cognitive status at discharge: mildly impaired cognition, Behavioral status at discharge: cooperative, Functional status at discharge: uses cane/walker, Overall status at discharge: patient is back to baseline Quality Metrics Clinical Quality Measures [ No reported AMI, CVA or VTE this stay] Coding Level of Care Code 68669 Total time (in minutes) for Discharge: 50 Diagnoses Weakness R53.1 COPD (chronic obstructive pulmonary disease) J44.9 Chronic respiratory failure with hypoxia J96.11 Bipolar 1 disorder F31.9 Anxiety disorder F41.9 Goals of care, counseling/discussion Z71.89
[2022-11-24] MEDS: quetiapine 25 mg Tablet 50 MG PO (09:54)
[2022-11-24] MEDS: citalopram 20 mg Tablet 10 MG PO (09:55)
[2022-11-24] MEDS: potassium chloride ER 20 mEq Tablet PO (09:55)
[2022-11-24] MEDS: cyanocobalamin 1,000 mcg/mL SDV 1000 MCG IM (09:55)
[2022-11-24] MEDS: azithromycin 250 mg Tablet 500 MG PO (09:56)
--- NOTE | 2022-12-01 17:04 | PC.SOCIAL ---
No HH since pt didn't follow up. Brandyn with [facility] called & said that pt did not make it to her follow up appointment with her new pcp. Since pt did not follow up, [facility] is not able to start care on pt. Pt will not have HH.
== END 2022-11-24 14:40 | disposition home health service (06) ==
LOC: ER 13:27 → MEDSURG 14:03
PROVIDERS: Admitting Provider Student in an Organized Health Care Education/Training Program; Emergency Provider Emergency Medicine; Visit Provider Student in an Organized Health Care Education/Training Program
DX: R53.1 Weakness (principal); J44.9 Chronic obstructive pulmonary disease, unspecified; J96.11 Chronic respiratory failure with hypoxia; F31.9 Bipolar disorder, unspecified; F41.9 Anxiety disorder, unspecified; Z71.89 Other specified counseling; Z87.891 Personal history of nicotine dependence; Z99.81 Dependence on supplemental oxygen
CPT/HCPCS: 36415; 36600; 71045; 80053; 80061; 81003; 82533; 82607; 82746; 82805; 83036; 83540; 83550; 83735; 83880; 84100; 84145; 85025; 87426; 93005; 93306; 94640; 94664; 96372; 96374; 99285; G0378; J1644; J2920; J3420; J7626; Q0144

== ENCOUNTER 2022-11-25 06:05 | Emergency (ER) | payer MEDICARE, SELFPAY ==
[2022-11-25 06:07] VITALS: BP 159/87; PULSE 109; RESP 20; TEMP 36.6; O2SAT 98; BMI 25.4
--- NOTE | 2022-11-25 06:07 | XRR_ITS ---
PROCEDURE INFORMATION: Exam: XR Chest Exam date and time: 11/25/2022 6:10 AM Age: 72 years old Clinical indication: Cough and shortness of breath; Patient HX: C/O cough with SOB; Additional info: Dyspnea/cough TECHNIQUE: Imaging protocol: Radiologic exam of the chest. Views: 1 view. COMPARISON: CR XR chest 1V portable [id number] 11/23/2022 11:53 AM FINDINGS: Lungs: Unremarkable. No consolidation. Pleural spaces: Unremarkable. No pleural effusion. No pneumothorax. Heart/Mediastinum: Unremarkable. No cardiomegaly. Bones/joints: Unremarkable. XR/XR chest 1V portable [id number] IMPRESSION: No acute findings.
[2022-11-25 06:12] VITALS: BP 159/87; PULSE 102; RESP 20; O2SAT 99
--- NOTE | 2022-11-25 06:27 | ECG_ITS ---
[facility] Test Date: 2022-11-25 Pat Name: Socorro Montes De Oca Department: Room: Gender: Female Contact Center Analyst: : [id number] Requested By: Alex Scales Order Number: [id number] Octavio MD: Murray Abreu M.D. Measurements Intervals [place] Rate: 103 P: 88 [place]: 122 QRS: 66 QRSD: 78 T: 69 QT: 320 QTc: 419 Interpretive Statements SINUS TACHYCARDIA POSSIBLE LEFT ATRIAL ENLARGEMENT [-0.1mV P-WAVE IN V1/V2] POSSIBLE RIGHT VENTRICULAR CONDUCTION DELAY [RSR (QR) IN V1/V2] ABNORMAL RHYTHM ECG Compared to ECG 11/23/2022 11:26:04 Short [place] interval no longer present Electronically Signed On 11-25-2022 13:58:44 CDT by Murray Abreu M.D. [id number]
[2022-11-25 06:29] LABS: Basophils % 0.1 %; Hematocrit 41.8 % (36-47); Lymphocytes # 1.9 10^3/uL (0.8-4.8); Lymphocytes % 7.7 %; Mean Corpuscular HGB Conc 33.3 g/dL (30-55); Mean Corpuscular Volume 96.1 fl (85-98); Mean Platelet Volume 10.5 fL (7.4-10.4); Monocytes # 2.1 10^3/uL (0.2-0.9); Monocytes % 8.3 %; Neutrophils # 20.74 10^3/uL (1.8-7.7); Neutrophils % 83.4 %; Nucleated Red Blood Cells % 0 %; Platelet Count 310 10^3/cmm (157-399); Red Blood Count 4.35 10^6/uL (3.85-5.65); Red Cell Distribution Width 14.5 % (12.1-15.1); White Blood Count 24.86 10^3/uL (3.29-11.43)
--- NOTE | 2022-11-25 06:34 | ED_ITS ---
HPI - SOB/Dyspnea General: Chief Complaint: Shortness of Breath/Dyspnea Stated Complaint: SOB Time Seen by Provider: 11/25/22 06:06 Source: patient Mode of arrival: EMS History of Present Illness: HPI Narrative: 72-year-old female with a history of COPD presents to the emergency room with complaint of shortness of breath. She was recently hospitalized for COPD exacerbation. She also has a history of severe anxiety and panic disorder which seems to play a role in her exacerbations. She was discharged home after a short hospital stay. She was noted to have pneumonia and a UTI she has worsening end-stage COPD as well. She tells me that when she got home she found that she was out of Ventolin and returns to the emergency room today due to increasing shortness of breath. She was given a nebulizer treatment in route she is normally on 6 L per per minute and her oxygen sat is near 100%. At the time of discharge she was encouraged to [place] care because of the sequela of her severe COPD and not being able to manage her ADLs she did not want to go there so she was discharged home on steroid taper and oral antibiotics. MD elicited complaint: shortness of breath Associated symptoms: Deny abdominal pain, chest pain, fever(s), nausea or vomiting Review of Systems 2 Const: Denies: fever(s), chills, body aches, change in appetite, fatigue or malaise ENMT: Denies: throat pain Card: Reports: dyspnea on exertion (Chronic); Denies: chest pain or edema Resp: Reports: dyspnea and non-productive cough; Denies: productive cough GI: Denies: abdominal pain, nausea or vomiting : Reports: difficulty voiding; Denies: flank pain, dysuria, urinary frequency or urinary urgency Skin/Breast: Denies: rash or pruritus Psych: Reports: anxiety and irritability PFS ED PFSH: Medical History (Updated 11/25/22 @ 07:41 by Alex Romero DO) Acute exacerbation of chronic obstructive airways disease Acute on chronic respiratory failure with hypoxia and hypercapnia Acute respiratory distress Acute respiratory distress Anxiety disorder Asthma-COPD overlap syndrome Chronic respiratory failure with hypoxia COPD (chronic obstructive pulmonary disease) Opioid contract exists Panic anxiety syndrome Panic attacks Right lower lobe pneumonia Surgical History History of appendectomy History of cholecystectomy History of hysterectomy Hx of tonsillectomy Family History Other No pertinent family history Social History Smoking and tobacco status: former smoker Quit status (tobacco): has quit using tobacco Year quit tobacco: 2015 - 1PPD x 40 Years Alcohol intake: never Substance/Drug Use: never Lives independently: Yes Household members: none Current occupational status: disabled Pets and animals: Yes Pets & animals: dog(s) Do you think of yourself as: Straight/Heterosexual Current gender identity: Female Physical Exam Const: COMMON NORMALS: no acute distress GENERAL APPEARANCE: cooperative and comfortable ORIENTATION/CONSCIOUSNESS: Yes awake, Yes oriented to person, Yes oriented to place and Yes oriented to time HENMT: COMMON NORMALS: normocephalic, atraumatic and hearing grossly normal bilaterally HEAD & SCALP: normocephalic and atraumatic Resp: EFFORT & INSPECTION: Yes tachypneic AUSCULTATION: wheezes OTHER: Wheezing resolved after DuoNeb treatment Cardio: COMMON NORMALS: regular rate, regular rhythm and No murmurs present (Cardio) RATE: regular rate RHYTHM: regular rhythm GI: COMMON NORMALS: Soft to palpation and No hepatosplenomegaly present AUSCULTATION: Yes normoactive bowel sounds PALPATION: Yes Soft to palpation, No Tenderness to palpation present (GI), No Guarding due to palpation present (GI) and Yes No hepatosplenomegaly present Extremity: COMMON NORMALS: normal to inspection, capillary refill normal, no clubbing, cyanosis or edema, no calf tenderness and no pedal edema Neuro: SENSORIUM/ORIENTATION: Yes oriented to person, Yes oriented to place and Yes oriented to time Skin: COMMON NORMALS: no rashes or lesions noted GENERAL SKIN EXAM: no rashes or lesions noted Course Vital Signs: Vital signs: Vital Signs Temperature 98 F 11/25/22 06:07 Pulse Rate 84 11/25/22 07:26 Respiratory Rate 20 H 11/25/22 07:26 Blood Pressure 129/70 11/25/22 07:12 Pulse Oximetry 100 11/25/22 07:26 Oxygen Delivery Me thod Nasal Cannula 11/25/22 07:26 Oxygen Flow Rate 5 11/25/22 07:26 MDM - SOB/Dyspnea Medical Decision Making Leukocytosis secondary to glucocorticosteroids. Patient has small amount of wheezing prior to the nebulizer mostly resolved after the treatment. Sats stable on her usual oxygen supplementation. I went back to reevaluate the patient she was quite upset. She is angry that we have declined to refill her clonazepam. She had assess when initially seen her we encouraged her to follow- up with her primary care doctor to refill. Discussed with her that those medications are more appropriately filled by primary care provider and that the emergency room does not provide prescription for long-term benzodiazepines. We did give her a single dose of Ativan and discharged home with hydroxyzine to use as needed for short-term until she can contact her primary care provider when their office opens again in 2 days. Patient was not satisfied with this plan I did encourage her to contact her doctor's office they do have office hours today and there is an on-call physician who could review her chart at the office to see if it is appropriate to refill her clonazepam. Medical Records I reviewed the patient's medical records. Lab Data I reviewed the patient's lab results. 11/25/22 06:21 11/25/22 06:21 Labs/Radiology: Laboratory Results WBC 24.86 10^3/uL (3.29-11.43) H 11/25/22 06:21 RBC 4.35 10^6/uL (3.85-5.65) 11/25/22 06:21 Hgb 13.90 g/dL (11.27-16.99) 11/25/22 06:21 Hct 41.8 % (36-47) 11/25/22 06:21 MCV 96.1 fl (85-98) 11/25/22 06:21 MCH 32.0 pg (27-33) 11/25/22 06:21 MCHC 33.3 g/dL (30-55) 11/25/22 06:21 RDW 14.5 % (12.1-15.1) 11/25/22 06:21 Plt Count 310 10^3/cmm (157-399) 11/25/22 06:21 MPV 10.5 fL (7.4-10.4) H 11/25/22 06:21 Neut % (Auto) 83.4 % 11/25/22 06:21 Lymph % (Auto) 7.7 % 11/25/22 06:21 Isabella % (Auto) 8.3 % 11/25/22 06:21 Eos % (Auto) 0.0 % 11/25/22 06:21 Baso % (Auto) 0.1 % 11/25/22 06:21 Neut # (Auto) 20.74 10^3/uL (1.8-7.7) H 11/25/22 06:21 Lymph # (Auto) 1.9 10^3/uL (0.8-4.8) 11/25/22 06:21 Isabella # (Auto) 2.1 10^3/uL (0.2-0.9) H 11/25/22 06:21 Eos # (Auto) 0.0 10^3/uL (0.0-0.8) 11/25/22 06:21 Baso # (Auto) 0.0 10^3/uL (0.0-0.1) 11/25/22 06:21 Nucleated RBC % (auto) 0 % 11/25/22 06:21 Nucleated RBCs # 0.0 /100WBC 11/25/22 06:21 Sodium 139 mmol/L (136-145) 11/25/22 06:21 Potassium 4.0 mmol/L (3.5-5.1) 11/25/22 06:21 Chloride 96 mmol/L (98-107) L 11/25/22 06:21 Carbon Dioxide 34 mmol/L (22-29) H 11/25/22 06:21 Anion Gap 13.0 (5-19) 11/25/22 06:21 BUN 21 mg/dL (8-23) 11/25/22 06:21 Creatinine 0.6 mg/dL (0.5-0.9) 11/25/22 06:21 GFR Calculation Not Reportable 11/25/22 06:21 Glucose 110 mg/dL (65-115) 11/25/22 06:21 Calculated Osmolality 292 mOsm/kg (285-295) 11/25/22 06:21 Calcium 10.3 mg/dL (8.5-10.5) 11/25/22 06:21 Total Bilirubin 0.4 mg/dL (0.15-1.2) 11/25/22 06:21 AST 19 U/L (0-32) 11/25/22 06:21 ALT 12 U/L (0-33) 11/25/22 06:21 Alkaline Phosphatase 79 U/L (35-105) 11/25/22 06:21 Troponin T Baseline 9 ng/L (0-10) 11/25/22 06:21 Total Protein 6.6 g/dL (6.6-8.7) 11/25/22 06:21 Albumin 4.6 g/dL (3.5-5.2) 11/25/22 06:21 Globulin 2.0 g/dL (1.3-4.6) 11/25/22 06:21 Discharge Plan Discharge Patient Disposition: Home Clinical Impression: COPD (chronic obstructive pulmonary disease), Anxiety Condition: Stable Prescriptions: New albuterol sulfate 90 mcg/actuation HFA aerosol inhaler 2 inh INHALATION Q4H PRN (Reason: shortness of breath or wheezing) Qty: 18 0RF hydroxyzine HCl 25 mg tablet 25 mg PO Q6H PRN (Reason: anxiety) Qty: 10 0RF No Action albuterol sulfate [Ventolin HFA] 90 mcg/actuation HFA aerosol inhaler 1 - 2 puff INHALATION Q4H PRN (Reason: Shortness Of Breath) hydrocodone-acetaminophen 10-325 mg Tablet 1 - 2 tab PO QID PRN (Reason: Pain) citalopram 10 mg tablet 10 mg PO DAILY clonazepam 0.5 mg Tablet 1 mg PO QID PRN (Reason: Anxiety) azithromycin 250 mg Tablet 250 mg PO EVERY OTHER DAY 30 Days Qty: 15 0RF prednisone 10 mg tablet See Taper PO DIRECTED Qty: 42 0RF Taper: predniSONE 60-10 60 mg Daily for 2 Days and 0 Hour 50 mg Daily for 2 Days and 0 Hour 40 mg Daily for 2 Days and 0 Hour 30 mg Daily for 2 Days and 0 Hour 20 mg Daily for 2 Days and 0 Hour 10 mg Daily for 2 Days and 0 Hour Rx Instructions: see taper instructions prednisone 5 mg tablet 5 mg PO DAILY Qty: 30 0RF Rx Instructions: Start daily after finishing steroid taper cyanocobalamin (vitamin B-12) 1,000 mcg capsule 1,000 mcg PO DAILY Qty: 90 0RF aspirin 81 mg Tablet,Delayed Release (Dr/Ec) 81 mg PO BEDTIME ascorbic acid (vitamin C) [Vitamin C] 500 mg Tablet 500 mg PO DAILY quetiapine 50 mg tablet 50 mg PO DAILY budesonide-formoterol [Symbicort] 80-4.5 mcg/actuation HFA aerosol inhaler 1 inh inhalation BID Qty: 10.2 3RF potassium chloride 20 mEq tablet extended release 20 meq PO DAILY Qty: 7 0RF Discharge Orders: Discharge ED (Routine); Ordered 11/25/22 Ordered By: Alex Romero Discharge Diet: Usual diet Discharge Activity: Increase activity as tolerated Patient Instructions: Opioid Safety, Pain Management Activity Restrictions/Additional Instructions: You are seen today for exacerbation of your COPD and anxiety. He was stated you are not able to get your Ventolin inhaler refilled in or out you can use your albuterol nebulizers as a substitute as Ventolin is the name brand form of albuterol. We did give you another prescription for an albuterol handheld inhaler we had offered a prescription for the solution for the nebulizer but you had informed us you had adequate supply at home. Continue the steroid taper and antibiotics you were given at discharge from the hospital yesterday. You were given a single dose of Ativan in the emergency room and a prescription for hydroxyzine to use 1 every 6 hours for anxiety. Please see your primary care provider to refill other long-term medications such as clonazepam. Coding Level of Care Code ED Lawn Caretaker for Ji Melgar
[2022-11-25 06:46] LABS: Troponin(5th) Baseline 9 ng/L (0-10)
[2022-11-25 06:47] LABS: Alanine Aminotransferase 12 U/L (0-33); Albumin Level 4.6 g/dL (3.5-5.2); Alkaline Phosphatase 79 U/L (35-105); Aspartate Amino Transferase 19 U/L (0-32); Blood Urea Nitrogen 21 mg/dL (8-23); Calcium 10.3 mg/dL (8.5-10.5); Carbon Dioxide 34 mmol/L (22-29); Chloride 96 mmol/L (98-107); Creatinine Clr Calc Pharmacy 49.5616; Glucose 110 mg/dL (65-115); Osmolality Calculated 292 mOsm/kg (285-295); Sodium 139 mmol/L (136-145); Total Bilirubin 0.4 mg/dL (0.15-1.2); Total Protein 6.6 g/dL (6.6-8.7)
[2022-11-25] MEDS: dexamethasone 10 mg/mL INJ IM (07:10)
[2022-11-25 07:12] VITALS: BP 129/70; PULSE 85; RESP 16; O2SAT 98
[2022-11-25] MEDS: ipratropium-albuterol 3 mL Neb INHALATION (07:25)
--- NOTE | 2022-11-25 07:25 | PC.NURSE ---
Report from JANELL Tatum. Pt updated on plan. Denies further needs at this time. NIKITA.
[2022-11-25 07:26] VITALS: PULSE 84; RESP 20; O2SAT 100
[2022-11-25] MEDS: LORazepam 2 mg Tablet PO (07:59)
[2022-11-25 08:06] VITALS: BP 139/87; PULSE 83; RESP 17; O2SAT 100
== END 2022-11-25 08:26 | disposition home or self-care (01) ==
PROVIDERS: Emergency Provider Family Medicine
DX: J44.9 Chronic obstructive pulmonary disease, unspecified (principal); F41.9 Anxiety disorder, unspecified; Z79.82 Long term (current) use of aspirin; Z87.891 Personal history of nicotine dependence
CPT/HCPCS: 36415; 71045; 80053; 84484; 85025; 93005; 94640; 96372; 99285; J1100

== ENCOUNTER 2022-11-27 14:06 | Emergency (ER) | payer MEDICARE, SELFPAY ==
[2022-11-27 14:16] VITALS: BP 156/91; PULSE 79; RESP 14; TEMP 36.1; O2SAT 100
--- NOTE | 2022-11-27 14:22 | ECG_ITS ---
[facility] Test Date: 2022-11-27 Pat Name: Socorro Montes De Oca Department: Room: Gender: Female Matching Machine Operator: : [id number] Requested By: Alex Scales Order Number: [id number] Octavio MD: Murray Abreu M.D. Measurements Intervals [place] Rate: 77 P: 78 [place]: 122 QRS: 73 QRSD: 85 T: 76 QT: 374 QTc: 424 Interpretive Statements SINUS RHYTHM POSSIBLE RIGHT VENTRICULAR CONDUCTION DELAY [RSR (QR) IN V1/V2] Compared to ECG 11/25/2022 06:27:52 Sinus tachycardia no longer present Electronically Signed On 11-27-2022 16:03:48 CDT by Murray Abreu M.D. [id number]
--- NOTE | 2022-11-27 14:22 | XR_ITS ---
WS: [id number] Exam: XR chest 1V portable [id number] Date/Time of Exam: 11/27/2022 2:55 PM Reason For Exam: dyspnea/cough Comparison 11/25/2022. The lungs are hyperinflated and clear. Normal cardiomediastinal silhouette and regional bony elements . IMPRESSION: 1. Pulmonary hyperinflation. No acute process noted.
--- NOTE | 2022-11-27 14:36 | W.ED.WEAKNES ---
HPI - Weakness General: Chief complaint: Weakness Stated complaint: WEAKNESS, MALNUTRITION Time Seen by Provider: 11/27/22 14:22 Source: patient Mode of arrival: EMS History of Present Illness: 72-year-old female with a history of end-stage COPD presents emergency room via EMS. She is awake and alert she cannot really tell me why she called so she has not been able to eat but I identify a reason. She was recently hospitalized that offered her long-term placement actually recommended to her to go to the long-term for care she refused she was back the following day wanting clonazepam we gave her Ativan here and discharged home with hydroxyzine encouraged to follow-up with her primary care doctor she has not yet been seen by him. She denies chest pain or abdominal pain any fever sweats chills or productive cough. MD Complaint: generalized weakness Duration: constant Relieving factors: none Exacerbating factors: none Associated symptoms: Denies chest pain, chills, confusion, melena, decreased appetite, diaphoresis, dysuria, easy bruising, fever(s), headache(s), myalgias, nausea, rash, short of breath, syncope or vomiting Review of Systems Const: Denies: fever(s), chills or diaphoresis Card: Denies: chest pain or syncope Resp: Reports: wheezing; Denies: productive cough or non-productive cough GI: Denies: abdominal pain, nausea, vomiting or melena : Denies: dysuria, urinary frequency or urinary urgency Musc: Reports: neck pain; Denies: back pain Skin/Breast: Denies: rash or pruritus Neuro: Denies: headache(s) or confusion Arnav/Lymph: Denies: easy bruising PFS ED PFSH: Medical History Acute exacerbation of chronic obstructive airways disease Acute on chronic respiratory failure with hypoxia and hypercapnia Acute respiratory distress Acute respiratory distress Anxiety disorder Asthma-COPD overlap syndrome Chronic respiratory failure with hypoxia COPD (chronic obstructive pulmonary disease) Opioid contract exists Panic anxiety syndrome Panic attacks Right lower lobe pneumonia Surgical History History of appendectomy History of cholecystectomy History of hysterectomy Hx of tonsillectomy Family History Other No pertinent family history Social History Smoking and tobacco status: former smoker Quit status (tobacco): has quit using tobacco Year quit tobacco: 2015 - 1PPD x 40 Years Alcohol intake: never Substance/Drug Use: never Lives independently: Yes Household members: none Current occupational status: disabled Pets and animals: Yes Pets & animals: dog(s) Do you think of yourself as: Straight/Heterosexual Current gender identity: Female Physical Exam Const: GENERAL APPEARANCE: cooperative and comfortable ORIENTATION/CONSCIOUSNESS: Yes awake, Yes oriented to person, Yes oriented to place and Yes oriented to time HENMT: COMMON NORMALS: normocephalic, atraumatic and hearing grossly normal bilaterally HEAD & SCALP: normocephalic and atraumatic Resp: COMMON NORMALS: normal respiratory effort, No retractions, No use of accessory muscles and clear to auscultation bilaterally AUSCULTATION: clear to auscultation bilaterally Cardio: COMMON NORMALS: regular rate, regular rhythm and No murmurs present (Cardio) RATE: regular rate RHYTHM: regular rhythm GI: COMMON NORMALS: Soft to palpation and No hepatosplenomegaly present AUSCULTATION: Yes normoactive bowel sounds PALPATION: Yes Soft to palpation, No Tenderness to palpation present (GI), No Guarding due to palpation present (GI) and Yes No hepatosplenomegaly present Extremity: COMMON NORMALS: normal to inspection, capillary refill normal, no clubbing, cyanosis or edema, no calf tenderness and no pedal edema Neuro: SENSORIUM/ORIENTATION: Yes oriented to person, Yes oriented to place and Yes oriented to time Skin: COMMON NORMALS: no rashes or lesions noted GENERAL SKIN EXAM: no rashes or lesions noted Course Vital Signs: Vital signs: Vital Signs Temperature 97.0 F L 11/27/22 14:16 Pulse Rate 80 11/27/22 15:49 Respiratory Rate 14 11/27/22 14:16 Blood Pressure 143/71 11/27/22 15:49 Pulse Oximetry 100 11/27/22 15:49 Oxygen Delivery Me thod Room Air 11/27/22 14:46 Oxygen Flow Rate 6 11/27/22 14:16 MDM - Weakness Medical Decision Making Patient wishes to go home. She really needs to be going to a long-term for higher level of care but she also refuses she still want to stay home to be with her dog. She is awake and alert mentally capable of making her own decisions, we have no reasons to 96 her. We will discharge her home she has any worsening problems she is welcome to return and encouraged to consider long-term placement Medical Records I reviewed the patient's medical records. Lab Data I reviewed the patient's lab results. 11/27/22 13:53 11/27/22 13:53 Laboratory Results WBC 8.08 10^3/uL (3.29-11.43) 11/27/22 13:53 RBC 4.39 10^6/uL (3.85-5.65) 11/27/22 13:53 Hgb 14.30 g/dL (11.27-16.99) 11/27/22 13:53 Hct 42.1 % (36-47) 11/27/22 13:53 MCV 95.9 fl (85-98) 11/27/22 13:53 MCH 32.6 pg (27-33) 11/27/22 13:53 MCHC 34.0 g/dL (30-55) 11/27/22 13:53 RDW 14.5 % (12.1-15.1) 11/27/22 13:53 Plt Count 324 10^3/cmm (157-399) 11/27/22 13:53 MPV 10.9 fL (7.4-10.4) H 11/27/22 13:53 Neut % (Auto) 67.8 % 11/27/22 13:53 Lymph % (Auto) 19.9 % 11/27/22 13:53 [place] % (Auto) 11.0 % 11/27/22 13:53 Eos % (Auto) 0.6 % 11/27/22 13:53 Baso % (Auto) 0.0 % 11/27/22 13:53 Neut # (Auto) 5.47 10^3/uL (1.8-7.7) 11/27/22 13:53 Lymph # (Auto) 1.6 10^3/uL (0.8-4.8) 11/27/22 13:53 [place] # (Auto) 0.9 10^3/uL (0.2-0.9) 11/27/22 13:53 Eos # (Auto) 0.1 10^3/uL (0.0-0.8) 11/27/22 13:53 Baso # (Auto) 0.0 10^3/uL (0.0-0.1) 11/27/22 13:53 Nucleated RBC % (auto) 0 % 11/27/22 13:53 Nucleated RBCs # 0.0 /100WBC 11/27/22 13:53 Sodium 141 mmol/L (136-145) 11/27/22 13:53 Potassium 3.9 mmol/L (3.5-5.1) 11/27/22 13:53 Chloride 97 mmol/L (98-107) L 11/27/22 13:53 Carbon Dioxide 35 mmol/L (22-29) H 11/27/22 13:53 Anion Gap 12.9 (5-19) 11/27/22 13:53 BUN 30 mg/dL (8-23) H 11/27/22 13:53 Creatinine 0.5 mg/dL (0.5-0.9) 11/27/22 13:53 GFR Calculation Not Reportable 11/27/22 13:53 Glucose 93 mg/dL (65-115) 11/27/22 13:53 Calculated Osmolality 298 mOsm/kg (285-295) H 11/27/22 13:53 Calcium 9.3 mg/dL (8.5-10.5) 11/27/22 13:53 Total Bilirubin 0.8 mg/dL (0.15-1.2) 11/27/22 13:53 AST 48 U/L (0-32) H 11/27/22 13:53 ALT 56 U/L (0-33) H 11/27/22 13:53 Alkaline Phosphatase 65 U/L (35-105) 11/27/22 13:53 Troponin T Baseline 8 ng/L (0-10) 11/27/22 13:53 Total Protein 6.4 g/dL (6.6-8.7) L 11/27/22 13:53 Albumin 4.4 g/dL (3.5-5.2) 11/27/22 13:53 Globulin 2.0 g/dL (1.3-4.6) 11/27/22 13:53 Discharge Plan Discharge Patient Disposition: Home Clinical Impression: COPD (chronic obstructive pulmonary disease), Adult failure to thrive Condition: Stable Prescriptions: No Action albuterol sulfate [Ventolin HFA] 90 mcg/actuation HFA aerosol inhaler 1 - 2 puff INHALATION Q4H PRN (Reason: Shortness Of Breath) hydrocodone-acetaminophen 10-325 mg Tablet 1 - 2 tab PO QID PRN (Reason: Pain) citalopram 10 mg tablet 10 mg PO DAILY clonazepam 0.5 mg Tablet 1 mg PO QID PRN (Reason: Anxiety) azithromycin 250 mg Tablet 250 mg PO EVERY OTHER DAY 30 Days Qty: 15 0RF prednisone 10 mg tablet See Taper PO DIRECTED Qty: 42 0RF Taper: predniSONE 60-10 60 mg Daily for 2 Days and 0 Hour 50 mg Daily for 2 Days and 0 Hour 40 mg Daily for 2 Days and 0 Hour 30 mg Daily for 2 Days and 0 Hour 20 mg Daily for 2 Days and 0 Hour 10 mg Daily for 2 Days and 0 Hour Rx Instructions: see taper instructions prednisone 5 mg tablet 5 mg PO DAILY Qty: 30 0RF Rx Instructions: Start daily after finishing steroid taper cyanocobalamin (vitamin B-12) 1,000 mcg capsule 1,000 mcg PO DAILY Qty: 90 0RF aspirin 81 mg Tablet,Delayed Release (Dr/Ec) 81 mg PO BEDTIME ascorbic acid (vitamin C) [Vitamin C] 500 mg Tablet 500 mg PO DAILY quetiapine 50 mg tablet 50 mg PO DAILY budesonide-formoterol [Symbicort] 80-4.5 mcg/actuation HFA aerosol inhaler 1 inh inhalation BID Qty: 10.2 3RF potassium chloride 20 mEq tablet extended release 20 meq PO DAILY Qty: 7 0RF albuterol sulfate 90 mcg/actuation HFA aerosol inhaler 2 inh INHALATION Q4H PRN (Reason: shortness of breath or wheezing) Qty: 18 0RF hydroxyzine HCl 25 mg tablet 25 mg PO Q6H PRN (Reason: anxiety) Qty: 10 0RF Discharge Orders: Discharge ED (Routine); Ordered 11/27/22 Ordered By: Alex Romero Discharge Diet: Usual diet Discharge Activity: Resume usual activity Patient Instructions: Opioid Safety, Pain Management Coding Level of Care Code ED Last Marker for Ji Melgar
[2022-11-27 14:46] VITALS: BP 152/89; PULSE 80; O2SAT 99
[2022-11-27 14:50] LABS: Eosinophils # 0.1 10^3/uL (0.0-0.8); Eosinophils % 0.6 %; Hematocrit 42.1 % (36-47); Lymphocytes # 1.6 10^3/uL (0.8-4.8); Lymphocytes % 19.9 %; Mean Corpuscular Hemoglobin 32.6 pg (27-33); Mean Corpuscular Volume 95.9 fl (85-98); Mean Platelet Volume 10.9 fL (7.4-10.4); Monocytes # 0.9 10^3/uL (0.2-0.9); Neutrophils # 5.47 10^3/uL (1.8-7.7); Neutrophils % 67.8 %; Nucleated Red Blood Cells % 0 %; Platelet Count 324 10^3/cmm (157-399); Red Blood Count 4.39 10^6/uL (3.85-5.65); Red Cell Distribution Width 14.5 % (12.1-15.1); White Blood Count 8.08 10^3/uL (3.29-11.43)
[2022-11-27 15:01] LABS: Troponin(5th) Baseline 8 ng/L (0-10)
[2022-11-27 15:03] LABS: Alanine Aminotransferase 56 U/L (0-33); Albumin Level 4.4 g/dL (3.5-5.2); Alkaline Phosphatase 65 U/L (35-105); Anion Gap 12.9 (5-19); Aspartate Amino Transferase 48 U/L (0-32); Blood Urea Nitrogen 30 mg/dL (8-23); Calcium 9.3 mg/dL (8.5-10.5); Carbon Dioxide 35 mmol/L (22-29); Chloride 97 mmol/L (98-107); Creatinine Clr Calc Pharmacy 49.5616; Glucose 93 mg/dL (65-115); Osmolality Calculated 298 mOsm/kg (285-295); Potassium 3.9 mmol/L (3.5-5.1); Sodium 141 mmol/L (136-145); Total Bilirubin 0.8 mg/dL (0.15-1.2); Total Protein 6.4 g/dL (6.6-8.7)
--- NOTE | 2022-11-27 15:18 | DCPLANNER ---
biofuels product development manager seen patient due to no primary care physician. Patient stated that she has an appointment scheduled with Dr. Gonzalez to establish care.
[2022-11-27 15:49] VITALS: BP 143/71; PULSE 80; O2SAT 100
== END 2022-11-27 15:51 | disposition home or self-care (01) ==
PROVIDERS: Emergency Provider Family Medicine
DX: J44.9 Chronic obstructive pulmonary disease, unspecified (principal); R62.7 Adult failure to thrive; Z68.25 Body mass index [BMI] 25.0-25.9, adult; Z79.82 Long term (current) use of aspirin; Z87.891 Personal history of nicotine dependence
CPT/HCPCS: 71045; 80053; 84484; 85025; 93005; 99285

== ENCOUNTER 2022-11-28 13:23 | Emergency (ER) | payer MEDICARE, SELFPAY ==
[2022-11-28 13:24] VITALS: BP 114/90; PULSE 95; RESP 22; TEMP 36.4; O2SAT 100; BMI 25.4
--- NOTE | 2022-11-28 14:21 | ED_ITS ---
HPI - Weakness General: Chief complaint: Weakness Stated complaint: Gen weakness Time Seen by Provider: 11/28/22 13:29 Source: patient Mode of arrival: ambulatory History of Present Illness: 72-year-old female presents emergency room via EMS. Patient has been here 5 of the last 7 days. She was admitted on the seventh however she refused to go to the [facility] because she wanted to be old keep her dog for has been here in several days in a row since then he today that she comes in she states she has weakness no significant findings we offered the patient admission with an eye towards placement but she is refusing she want to be admitted because she is wanting to keep her dog. MD Complaint: generalized weakness Associated symptoms: Denies chest pain, chills, melena, dysuria, fever(s), nausea or vomiting Review of Systems Const: Reports: body aches, change in appetite, fatigue and malaise; Denies: fever(s) or chills ENMT: Denies: throat pain, ear or mastoid pain, nasal discharge or nasal congestion Card: Denies: chest pain, edema, dyspnea on exertion or orthopnea Resp: Denies: dyspnea, productive cough or non-productive cough GI: Denies: abdominal pain, nausea, vomiting, hematemesis, coffee ground emesis, diarrhea, constipation, bloating, hematochezia or melena : Denies: flank pain, difficulty voiding, dysuria, urinary frequency or urinary urgency Skin/Breast: Denies: rash or pruritus [facility] ED PFSH: Medical History Acute exacerbation of chronic obstructive airways disease Acute on chronic respiratory failure with hypoxia and hypercapnia Acute respiratory distress Acute respiratory distress Anxiety disorder Asthma-COPD overlap syndrome Chronic respiratory failure with hypoxia COPD (chronic obstructive pulmonary disease) Opioid contract exists Panic anxiety syndrome Panic attacks Right lower lobe pneumonia Surgical History History of appendectomy History of cholecystectomy History of hysterectomy Hx of tonsillectomy Family History Other No pertinent family history Social History Smoking and tobacco status: former smoker Quit status (tobacco): has quit using tobacco Year quit tobacco: 2015 - 1PPD x 40 Years Alcohol intake: never Substance/Drug Use: never Lives independently: Yes Household members: none Current occupational status: disabled Pets and animals: Yes Pets & animals: dog(s) Do you think of yourself as: Straight/Heterosexual Current gender identity: Female Course Vital Signs: Vital signs: Vital Signs Temperature 97.5 F L 11/28/22 13:24 Pulse Rate 95 11/28/22 13:24 Respiratory Rate 22 H 11/28/22 13:24 Blood Pressure 114/90 11/28/22 13:24 Pulse Oximetry 100 11/28/22 13:24 Oxygen Delivery Me thod Nasal Cannula 11/28/22 13:24 Oxygen Flow Rate 6 11/28/22 13:24 MDM - Weakness Medical Decision Making Patient presents to the ER with generalized weakness however in talking to her she really does not want anything done. Unfortunately she has no friends or family in the area to his sister she has been in the hospital and declined discharge to [facility] because she cannot take her dog with her case management is sent to tremendous amount of time trying to work with her to get a better living condition where she will get her needs met. She continues to return to the emergency room but declines any offers for assistance. I asked staff to hotline her department Senior services see if we can get other services available for her. I suspect at some point she may need a conservator or guardian assigned so that we can help make sure she is taking care of. She did mention some neck pain today but this has been a recurring issue at her other recent visits as well and is unchanged she denied recent trauma. Medical Records I reviewed the patient's medical records. Lab Data I reviewed the patient's lab results. Discharge Plan Discharge Patient Disposition: Home Clinical Impression: Weakness, Anxiety, Adult failure to thrive, COPD (chronic obstructive pulmonary disease) Condition: Stable Prescriptions: No Action albuterol sulfate [Ventolin HFA] 90 mcg/actuation HFA aerosol inhaler 1 - 2 puff INHALATION Q4H PRN (Reason: Shortness Of Breath) hydrocodone-acetaminophen 10-325 mg Tablet 1 - 2 tab PO QID PRN (Reason: Pain) citalopram 10 mg tablet 10 mg PO DAILY clonazepam 0.5 mg Tablet 1 mg PO QID PRN (Reason: Anxiety) azithromycin 250 mg Tablet 250 mg PO EVERY OTHER DAY 30 Days Qty: 15 0RF prednisone 10 mg tablet See Taper PO DIRECTED Qty: 42 0RF Taper: predniSONE 60-10 60 mg Daily for 2 Days and 0 Hour 50 mg Daily for 2 Days and 0 Hour 40 mg Daily for 2 Days and 0 Hour 30 mg Daily for 2 Days and 0 Hour 20 mg Daily for 2 Days and 0 Hour 10 mg Daily for 2 Days and 0 Hour Rx Instructions: see taper instructions prednisone 5 mg tablet 5 mg PO DAILY Qty: 30 0RF Rx Instructions: Start daily after finishing steroid taper cyanocobalamin (vitamin B-12) 1,000 mcg capsule 1,000 mcg PO DAILY Qty: 90 0RF aspirin 81 mg Tablet,Delayed Release (Dr/Ec) 81 mg PO BEDTIME ascorbic acid (vitamin C) [Vitamin C] 500 mg Tablet 500 mg PO DAILY quetiapine 50 mg tablet 50 mg PO DAILY budesonide-formoterol [Symbicort] 80-4.5 mcg/actuation HFA aerosol inhaler 1 inh inhalation BID Qty: 10.2 3RF potassium chloride 20 mEq tablet extended release 20 meq PO DAILY Qty: 7 0RF albuterol sulfate 90 mcg/actuation HFA aerosol inhaler 2 inh INHALATION Q4H PRN (Reason: shortness of breath or wheezing) Qty: 18 0RF hydroxyzine HCl 25 mg tablet 25 mg PO Q6H PRN (Reason: anxiety) Qty: 10 0RF Discharge Orders: Discharge ED (Routine); Ordered 11/28/22 Ordered By: Alex Romero Patient Instructions: Opioid Safety, Pain Management Coding Level of Care Code ED Production Administrative Assistant for Ji Melgar
== END 2022-11-28 17:15 | disposition home or self-care (01) ==
PROVIDERS: Emergency Provider Family Medicine
DX: R53.1 Weakness (principal); F41.9 Anxiety disorder, unspecified; J44.9 Chronic obstructive pulmonary disease, unspecified; R62.7 Adult failure to thrive; Z68.25 Body mass index [BMI] 25.0-25.9, adult; Z79.82 Long term (current) use of aspirin; Z87.891 Personal history of nicotine dependence
CPT/HCPCS: 99281

== ENCOUNTER 2022-11-30 18:43 | Emergency (ER) | payer MEDICARE, SELFPAY ==
[2022-11-30 19:00] VITALS: BP 145/78; PULSE 103; RESP 20; TEMP 37; O2SAT 100; BMI 27.3
--- NOTE | 2022-11-30 19:17 | ED_ITS ---
HPI - Weakness General: Chief complaint: Weakness Stated complaint: generalized weaknes Time Seen by Provider: 11/30/22 18:59 History of Present Illness: 72-year-old female with history of COPD, asthma, mood disorder and anxiety presents emergency room via EMS with vague complaint of generalized weakness for the past few days. Patient reveals that she was not evaluated for similar complaint last week. During the visitation patient extensive work-up done and was discharged home. Patient reveals that she lives alone and was very tearful during the interview. She has any suicidal homicidal ideation. Hallucination, no chest pain, cough, coughing up blood or vomiting blood. No leg swelling or calf tenderness. Associated symptoms: Denies easy bruising or headache(s) Review of Systems General: Reports: 10 or more systems reviewed and unremarkable except in HPI and below Const: Reports: other (Generalized weakness) Resp: Reports: dyspnea; Denies: productive cough, non-productive cough, wheezing, pain on inspiration, change in phlegm color, hemoptysis or chest congestion Musc: Denies: neck pain, back pain, extremity pain or extremity swelling Neuro: Denies: headache(s), numbness in extremities, weakness in extremities, sensory changes or lack of coordination Psych: Reports: anxiety; Denies: depression, mood swings, panic attacks, sleeping less, sleeping more, hopelessness, loss of interest, change in appetite, irritability or paranoia Arnav/Lymph: Denies: easy bruising, easy bleeding or petechiae PFS ED PFSH: Medical History Acute exacerbation of chronic obstructive airways disease Acute on chronic respiratory failure with hypoxia and hypercapnia Acute respiratory distress Acute respiratory distress Anxiety disorder Asthma-COPD overlap syndrome Chronic respiratory failure with hypoxia COPD (chronic obstructive pulmonary disease) Opioid contract exists Panic anxiety syndrome Panic attacks Right lower lobe pneumonia Surgical History History of appendectomy History of cholecystectomy History of hysterectomy Hx of tonsillectomy Family History Other No pertinent family history Social History Smoking and tobacco status: former smoker Quit status (tobacco): has quit using tobacco Year quit tobacco: 2015 - 1PPD x 40 Years Alcohol intake: never Substance/Drug Use: never Lives independently: Yes Household members: none Current occupational status: disabled Pets and animals: Yes Pets & animals: dog(s) Do you think of yourself as: Straight/Heterosexual Current gender identity: Female Physical Exam Const: COMMON NORMALS: no acute distress, average body habitus, patient oriented x3, no limitations, healthy appearing, alert and well nourished HENMT: COMMON NORMALS: normocephalic, atraumatic, hearing grossly normal bilaterally, external ears normal, EAC's normal, TM's normal bilaterally, Normal external nose present, Normal nasal mucous membranes and turbinates present, moist oral mucous membranes, oropharynx normal, dentition normal and gingiva normal HEAD & SCALP: normocephalic and atraumatic NOSE: Normal external nose present and Normal nasal mucous membranes and turbinates present EXTERNA L EAR: Yes external ears normal EXTERNAL AUDITORY CANAL: EAC's normal TYMPANIC MEMBRANE: TM's normal bilaterally Neck/C-Spine: COMMON NORMALS: full ROM, no lymphadenopathy, supple, no meningeal signs, no JVD, Thyroid normal and No carotid bruits THYROID: Thyroid normal Lymph: LYMPHATIC: no lymphadenopathy noted Chest: CHEST: No abnormal inspection of the chest Resp: AUSCULTATION: wheezes, no bronchial breath sounds, no bronchovesicular breath sounds, no egophony, no tactile fremitus and No rub present Cardio: COMMON NORMALS: no JVD Extremity: COMMON NORMALS: normal to inspection, full ROM, capillary refill normal, no joint enlargement, no clubbing, cyanosis or edema, no calf tenderness and no pedal edema Neuro: COMMON NORMALS: patient oriented x3 SENSORIUM/ORIENTATION: Yes alert MENINGEAL SIGNS: Yes no meningeal signs Skin: COMMON NORMALS: no rashes or lesions noted, no wounds, turgor normal, no jaundice, no petechiae and no mottling GENERAL SKIN EXAM: no rashes or lesions noted and turgor normal Course Vital Signs: Vital signs: Vital Signs Temperature 98.6 F 11/30/22 19:00 Pulse Rate 103 H 11/30/22 19:00 Respiratory Rate 20 H 11/30/22 19:00 Blood Pressure 145/78 11/30/22 19:00 Pulse Oximetry 100 11/30/22 19:00 Oxygen Delivery Me thod Nasal Cannula 11/30/22 19:00 Oxygen Flow Rate 3 11/30/22 19:00 MDM - Weakness Medical Decision Making Patient made comfortable emergency room. Lab work included CBC, CMP and TSH ordered. While waiting for the test patient decided to leave AGAINST MEDICAL ADVICE. Patient was awake and alert and the risk of leaving against medical was thoroughly discussed and patient understood the risk. Patient discharged home on oxygen tank. Differential Diagnosis Likely acute myocardial infarction, anemia, hypoglycemia, hypothyroidism, rhabdomyolysis, sepsis and dehydration Lab Data 11/30/22 18:28 11/30/22 18:28 Laboratory Results WBC 10.14 10^3/uL (3.29-11.43) 11/30/22 18: RBC 4.40 10^6/uL (3.85-5.65) 11/30/22 18: Hgb 14.30 g/dL (11.27-16.99) 11/30/22 18: Hct 42.9 % (36-47) 11/30/22 18: MCV 97.5 fl (85-98) 11/30/22 18: MCH 32.5 pg (27-33) 11/30/22 18: MCHC 33.3 g/dL (30-55) 11/30/22 18: RDW 15.1 % (12.1-15.1) 11/30/22 18: Plt Count 325 10^3/cmm (157-399) 11/30/22 18: MPV 11.5 fL (7.4-10.4) H 11/30/22 18: Neut % (Auto) 71.9 % 11/30/22 18: Lymph % (Auto) 13.4 % 11/30/22 18: [place] % (Auto) 10.9 % 11/30/22 18: Eos % (Auto) 2.4 % 11/30/22 18: Baso % (Auto) 0.4 % 11/30/22 18: Neut # (Auto) 7.29 10^3/uL (1.8-7.7) 11/30/22 18: Lymph # (Auto) 1.4 10^3/uL (0.8-4.8) 11/30/22 18:28 [place] # (Auto) 1.1 10^3/uL (0.2-0.9) H 11/30/22 18:28 Eos # (Auto) 0.2 10^3/uL (0.0-0.8) 11/30/22 18:28 Baso # (Auto) 0.0 10^3/uL (0.0-0.1) 11/30/22 18:28 Nucleated RBC % (auto) 0 % 11/30/22 18:28 Nucleated RBCs # 0.0 /100WBC 11/30/22 18:28 Sodium Cancelled 11/30/22 18:28 Potassium Cancelled 11/30/22 18:28 Chloride Cancelled 11/30/22 18:28 Carbon Dioxide Cancelled 11/30/22 18:28 Anion Gap Cancelled 11/30/22 18:28 BUN Cancelled 11/30/22 18:28 Creatinine Cancelled 11/30/22 18:28 GFR Calculation Cancelled 11/30/22 18:28 Glucose Cancelled 11/30/22 18:28 Calculated Osmolality Cancelled 11/30/22 18:28 Calcium Cancelled 11/30/22 18:28 Magnesium Cancelled 11/30/22 18:28 Total Bilirubin Cancelled 11/30/22 18:28 AST Cancelled 11/30/22 18:28 ALT Cancelled 11/30/22 18:28 Alkaline Phosphatase Cancelled 11/30/22 18:28 Total Protein Cancelled 11/30/22 18:28 Albumin Cancelled 11/30/22 18:28 Globulin Cancelled 11/30/22 18:28 TSH Cancelled 11/30/22 18:28 No radiology studies performed this visit ED provider radiology interpretation(s): Patient declined. Discharge Plan Discharge Patient Disposition: Left Against Medical Advice Clinical Impression: Weakness, COPD (chronic obstructive pulmonary disease) Condition: Stable Prescriptions: No Action hydrocodone-acetaminophen 10-325 mg Tablet 1 - 2 tab PO QID PRN (Reason: Pain) citalopram 10 mg tablet 10 mg PO DAILY clonazepam 0.5 mg Tablet 1 mg PO QID PRN (Reason: Anxiety) azithromycin 250 mg Tablet 250 mg PO EVERY OTHER DAY 30 Days Qty: 15 0RF prednisone 10 mg tablet See Taper PO DIRECTED Qty: 42 0RF Taper: predniSONE 60-10 60 mg Daily for 2 Days and 0 Hour 50 mg Daily for 2 Days and 0 Hour 40 mg Daily for 2 Days and 0 Hour 30 mg Daily for 2 Days and 0 Hour 20 mg Daily for 2 Days and 0 Hour 10 mg Daily for 2 Days and 0 Hour Rx Instructions: see taper instructions prednisone 5 mg tablet 5 mg PO DAILY Qty: 30 0RF Rx Instructions: Start daily after finishing steroid taper cyanocobalamin (vitamin B-12) 1,000 mcg capsule 1,000 mcg PO DAILY Qty: 90 0RF aspirin 81 mg Tablet,Delayed Release (Dr/Ec) 81 mg PO BEDTIME ascorbic acid (vitamin C) [Vitamin C] 500 mg Tablet 500 mg PO DAILY quetiapine 50 mg tablet 50 mg PO DAILY budesonide-formoterol [Symbicort] 80-4.5 mcg/actuation HFA aerosol inhaler 1 inh inhalation BID Qty: 10.2 3RF potassium chloride 20 mEq tablet extended release 20 meq PO DAILY Qty: 7 0RF albuterol sulfate 90 mcg/actuation HFA aerosol inhaler 2 inh INHALATION Q4H PRN (Reason: shortness of breath or wheezing) Qty: 18 0RF hydroxyzine HCl 25 mg tablet 25 mg PO Q6H PRN (Reason: anxiety) Qty: 10 0RF Discharge Diet: Advance as tolerated Discharge Activity: Resume usual activity Coding Level of Care Code ED Clinical Laboratory Manager for Ji Melgar
[2022-11-30 19:27] LABS: Basophils % 0.4 %; Eosinophils # 0.2 10^3/uL (0.0-0.8); Eosinophils % 2.4 %; Hematocrit 42.9 % (36-47); Lymphocytes # 1.4 10^3/uL (0.8-4.8); Lymphocytes % 13.4 %; Mean Corpuscular HGB Conc 33.3 g/dL (30-55); Mean Corpuscular Hemoglobin 32.5 pg (27-33); Mean Corpuscular Volume 97.5 fl (85-98); Mean Platelet Volume 11.5 fL (7.4-10.4); Monocytes # 1.1 10^3/uL (0.2-0.9); Monocytes % 10.9 %; Neutrophils # 7.29 10^3/uL (1.8-7.7); Neutrophils % 71.9 %; Nucleated Red Blood Cells % 0 %; Platelet Count 325 10^3/cmm (157-399); Red Cell Distribution Width 15.1 % (12.1-15.1); White Blood Count 10.14 10^3/uL (3.29-11.43)
--- NOTE | 2022-11-30 19:29 | PC.NURSE ---
Pt. states that she wants to leave against medical advice. I have explained to her that we are not going to hold her against her will, but she is currently on 6L of oxygen per nasal canula. I have explained that we will have to send her back via ambulance because she does not have anyone to bring her oxygen or give her a ride home. Pt. is insistent that we call an ambulance.
--- NOTE | 2022-11-30 20:45 | PC.NURSE ---
Pt. continues the push the call light , demanding to staff that we get her out now. I have explained to the patient several times that she cannot leave without oxygen or she will run out of oxygen. I have also explained to patient that we have called [facility] to bring oxygen for her to go home on. Pt. is angry and is being rude to staff.
== END 2022-11-30 21:07 | disposition left against medical advice (07) ==
PROVIDERS: Emergency Provider Family Medicine
DX: R53.1 Weakness (principal); J44.9 Chronic obstructive pulmonary disease, unspecified; Z53.21 Procedure and treatment not carried out due to patient leaving prior to being seen by health care provider; Z79.82 Long term (current) use of aspirin; Z87.891 Personal history of nicotine dependence
CPT/HCPCS: 85025; 99283

== ENCOUNTER 2022-12-01 16:17 | Emergency (ER) | payer MEDICARE, SELFPAY ==
[2022-12-01 16:26] VITALS: PULSE 102; RESP 18; TEMP 36.7; O2SAT 99; BMI 25.4
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
--- NOTE | 2022-12-01 18:35 | W.ED.AMS ---
HPI - Altered Mental Status General: Chief Complaint: Altered Mental Status Stated Complaint: ams Time Seen by Provider: 12/01/22 16:41 History of Present Illness: 72-year-old female with complex medical history including COPD and oxygen dependent, anxiety, benzodiazepine dependency, asthma, panic attack sent to emergency room via EMS with vague complaints. According to EMS patient call 911 for no specific reason. Upon present emergency room patient denies any suicidal homicidal ideation. She would like to be discharged. Patient was seen and evaluated by me yesterday for similar complaint but left AMA. Patient has any recent head injury or fall. Associated symptoms: Deny auditory hallucinations, visual hallucinations, depression, homicidal ideation or suicidal ideation Review of Systems General: Reports: 10 or more systems reviewed and unremarkable except in HPI and below Const: Denies: fever(s), chills or body aches Musc: Denies: neck pain, back pain or extremity pain Psych: Reports: anxiety; Denies: depression, mood swings, panic attacks, sleeping less, sleeping more, hopelessness, change in appetite, irritability, paranoia, memory loss, difficulty concentrating, visual hallucinations, auditory hallucinations, tactile hallucinations, suicidal ideation or homicidal ideation [facility] ED PFSH: Medical History Acute exacerbation of chronic obstructive airways disease Acute on chronic respiratory failure with hypoxia and hypercapnia Acute respiratory distress Acute respiratory distress Anxiety disorder Asthma-COPD overlap syndrome Chronic respiratory failure with hypoxia COPD (chronic obstructive pulmonary disease) Opioid contract exists Panic anxiety syndrome Panic attacks Right lower lobe pneumonia Surgical History History of appendectomy History of cholecystectomy History of hysterectomy Hx of tonsillectomy Family History Other No pertinent family history Social History Smoking and tobacco status: former smoker Quit status (tobacco): has quit using tobacco Year quit tobacco: 2014 1PPD x 40 Years Alcohol intake: never Substance/Drug Use: never Lives independently: Yes Household members: none Current occupational status: disabled Pets and animals: Yes Pets & animals: dog(s) Do you think of yourself as: Straight/Heterosexual Current gender identity: Female Physical Exam Const: COMMON NORMALS: no acute distress, average body habitus, patient oriented x3, no limitations, healthy appearing, alert and well nourished Neck/C-Spine: COMMON NORMALS: no JVD Chest: COMMONS NORMALS: normal inspection of the chest, normal palpation of entire chest wall, normal inspection of the breasts and normal palpation of the breasts Cardio: COMMON NORMALS: no JVD, regular rate, regular rhythm, S1 normal heart sound present, S2 normal heart sound present, No gallops present (Cardio), No clicks present (Cardio), No murmurs present (Cardio), No rub (Cardio) and Peripheral pulses 2+ throughout RATE: regular rate RHYTHM: regular rhythm HEART SOUNDS: S1 normal heart sound present and S2 normal heart sound present PERIPHERAL PULSES: Peripheral pulses 2+ throughout Extremity: COMMON NORMALS: normal to inspection, full ROM, capillary refill normal, no joint enlargement, no clubbing, cyanosis or edema, no calf tenderness and no pedal edema Neuro: COMMON NORMALS: patient oriented x3 SENSORIUM/ORIENTATION: Yes alert Psych: COMMON NORMALS: mental status grossly normal, Normal thought process present, cooperative, normal affect, speech normal, activity/motor behavior normal, denies hallucinations, denies homicidal ideation and denies suicidal ideation SPEECH: Yes normal speech THOUGHT PROCESS: Normal thought process present Course Consultations: Consultation #1: Patient discussed with Dr. Summers over the phone. Vital Signs: Vital signs: Vital Signs Temperature 98.1 F 12/01/22 16:26 Pulse Rate 102 H 12/01/22 16:26 Respiratory Rate 18 12/01/22 16:26 Pulse Oximetry 99 12/01/22 16:26 Oxygen Delivery Me thod Nasal Cannula 12/01/22 16:26 Oxygen Flow Rate 6 12/01/22 16:26 MDM - Altered Mental Status Medical Decision Making Patient made comfortable emergency room. Discussed patient with Dr. De La Cruz with his psychiatrist. She was evaluated by him fair iPad. At this point I recommend the patient can be discharged home Differential Diagnosis Likely alcoholic intoxication, altered mental status, delirium, dementia, hypoglycemia, hyponatremia, subarachnoid hemorrhage and sepsis No radiology studies performed this visit Discharge Plan Discharge Patient Disposition: Home Clinical Impression: Benzodiazepine dependence, Mood disorder Condition: Stable Prescriptions: No Action hydrocodone-acetaminophen 10-325 mg Tablet 1 - 2 tab PO QID PRN (Reason: Pain) citalopram 10 mg tablet 10 mg PO DAILY clonazepam 0.5 mg Tablet 1 mg PO QID PRN (Reason: Anxiety) azithromycin 250 mg Tablet 250 mg PO EVERY OTHER DAY 30 Days Qty: 15 0RF prednisone 10 mg tablet See Taper PO DIRECTED Qty: 42 0RF Taper: predniSONE 60-10 60 mg Daily for 2 Days and 0 Hour 50 mg Daily for 2 Days and 0 Hour 40 mg Daily for 2 Days and 0 Hour 30 mg Daily for 2 Days and 0 Hour 20 mg Daily for 2 Days and 0 Hour 10 mg Daily for 2 Days and 0 Hour Rx Instructions: see taper instructions prednisone 5 mg tablet 5 mg PO DAILY Qty: 30 0RF Rx Instructions: Start daily after finishing steroid taper cyanocobalamin (vitamin B-12) 1,000 mcg capsule 1,000 mcg PO DAILY Qty: 90 0RF aspirin 81 mg Tablet,Delayed Release (Dr/Ec) 81 mg PO BEDTIME ascorbic acid (vitamin C) [Vitamin C] 500 mg Tablet 500 mg PO DAILY quetiapine 50 mg tablet 50 mg PO DAILY budesonide-formoterol [Symbicort] 80-4.5 mcg/actuation HFA aerosol inhaler 1 inh inhalation BID Qty: 10.2 3RF potassium chloride 20 mEq tablet extended release 20 meq PO DAILY Qty: 7 0RF albuterol sulfate 90 mcg/actuation HFA aerosol inhaler 2 inh INHALATION Q4H PRN (Reason: shortness of breath or wheezing) Qty: 18 0RF hydroxyzine HCl 25 mg tablet 25 mg PO Q6H PRN (Reason: anxiety) Qty: 10 0RF Discharge Orders: Discharge ED (Routine); Ordered 12/01/22 Ordered By: Skye Mendosa Discharge Diet: Advance as tolerated Discharge Activity: Resume usual activity Coding Level of Care Code ED Director Veterinary for Ji Melgar
== END 2022-12-01 18:54 | disposition home or self-care (01) ==
PROVIDERS: Emergency Provider Family Medicine
DX: F39 Unspecified mood [affective] disorder (principal); F13.20 Sedative, hypnotic or anxiolytic dependence, uncomplicated; Z79.82 Long term (current) use of aspirin; J44.9 Chronic obstructive pulmonary disease, unspecified; Z87.891 Personal history of nicotine dependence
CPT/HCPCS: 99283

== ENCOUNTER 2022-12-02 16:32 | Emergency (ER) | payer MEDICARE, SELFPAY ==
[2022-12-02 16:38] VITALS: BP 149/87; PULSE 107; RESP 14; TEMP 36.8; O2SAT 100
--- NOTE | 2022-12-02 17:24 | ED_ITS ---
HPI - Fall General: Chief Complaint: Fall Stated Complaint: AMS; FALL Time Seen by Provider: 12/02/22 16:38 History of Present Illness: 72-year-old female brought to emergency room after fall at home. Patient is a frequent flyer to the emergency room. Patient lives alone. Upon present emergency room patient denies any injury and declined any further testing such as CT or x-ray. Chest pain, shortness of breath, hip pain or leg pain. Patient with history of COPD and oxygen dependent denies any recent cough, coughing up blood or vomiting blood. Review of Systems General: Reports: 10 or more systems reviewed and unremarkable except in HPI and below PFSH ED PFSH: Medical History Acute exacerbation of chronic obstructive airways disease Acute on chronic respiratory failure with hypoxia and hypercapnia Acute respiratory distress Acute respiratory distress Anxiety disorder Asthma-COPD overlap syndrome Chronic respiratory failure with hypoxia COPD (chronic obstructive pulmonary disease) Opioid contract exists Panic anxiety syndrome Panic attacks Right lower lobe pneumonia Surgical History History of appendectomy History of cholecystectomy History of hysterectomy Hx of tonsillectomy Family History Other No pertinent family history Social History Smoking and tobacco status: former smoker Quit status (tobacco): has quit using tobacco Year quit tobacco: 2015 - 1PPD x 40 Years Alcohol intake: never Substance/Drug Use: never Lives independently: Yes Household members: none Current occupational status: disabled Pets and animals: Yes Pets & animals: dog(s) Do you think of yourself as: Straight/Heterosexual Current gender identity: Female Physical Exam Const: COMMON NORMALS: no acute distress, average body habitus, patient oriented x3, no limitations, healthy appearing, alert and well nourished HENMT: COMMON NORMALS: normocephalic, atraumatic, hearing grossly normal bilaterally, external ears normal, EAC's normal, TM's normal bilaterally, Normal external nose present, Normal nasal mucous membranes and turbinates present, moist oral mucous membranes, oropharynx normal, dentition normal and gingiva normal HEAD & SCALP: normocephalic and atraumatic NOSE: Normal external nose present and Normal nasal mucous membranes and turbinates present EXTERNAL EAR: Yes external ears normal EXTERNAL AUDITORY CANAL: EAC's normal TYMPANIC MEMBRANE: TM's normal bilaterally Eye: COMMON NORMALS: Equal, round and reactive pupils present, EOMs intact bilaterally, conjunctivae normal, no scleral icterus, no papilledema, normal visual tirado by confrontation and fundi normal bilaterally CONJUNCTIVA: Yes conjunctivae normal PUPIL: Yes Equal, round and reactive pupils present DIRECT OPHTHALMOSCOPY: Yes no papilledema and Yes fundi normal bilaterally Chest: COMMONS NORMALS: normal inspection of the chest, normal palpation of entire chest wall, normal inspection of the breasts and normal palpation of the breasts Breast/axilla inspection: Yes normal inspection of the breasts BREAST/AXILLA PALPATION: Yes normal palpation of the breasts Resp: COMMON NORMALS: normal respiratory effort, No retractions, No use of accessory muscles, clear to auscultation bilaterally and percussion normal AUSCULTATION: clear to auscultation bilaterally, wheezes and diminished lung sounds PERCUSSION: percussion normal : COMMON NORMALS: Yes no CVA tenderness BLADDER/KIDNEY EXAM: Yes no CVA tenderness Back/Pelvis: COMMON NORMALS: no CVA tenderness, thoracic and lumbar spine normal to inspection, no thoracic nor lumbar tenderness, thoraco-lumbar ROM normal and straight leg raise negative bilaterally Extremity: COMMON NORMALS: normal to inspection, full ROM, capillary refill normal, no joint enlargement, no clubbing, cyanosis or edema, no calf tenderness and no pedal edema Neuro: COMMON NORMALS: patient oriented x3 SENSORIUM/ORIENTATION: Yes alert Course Vital Signs: Vital signs: Vital Signs Temperature 98.2 F 12/02/22 16:38 Pulse Rate 107 H 12/02/22 16:38 Respiratory Rate 14 12/02/22 16:38 Blood Pressure 149/87 12/02/22 16:38 Pulse Oximetry 100 12/02/22 16:38 Oxygen Delivery Me thod Nasal Cannula 12/02/22 16:38 MDM - Fall Medical Decision Making Patient made comfortable emergency room. Patient again refused any further testing CT or x-ray denies any injury or pain at this time. Patient wants to leave AGAINST MEDICAL ADVICE. Again I recommended assisted placement since patient has been here 3 times within the past 3 days but patient declined. He is awake and alert x3. No radiology studies performed this visit Discharge Plan Discharge Patient Disposition: Left Against Medical Advice Clinical Impression: Anxiety, Fall Condition: Stable Prescriptions: No Action hydrocodone-acetaminophen 10-325 mg Tablet 1 - 2 tab PO QID PRN (Reason: Pain) citalopram 10 mg tablet 10 mg PO DAILY clonazepam 0.5 mg Tablet 1 mg PO QID PRN (Reason: Anxiety) azithromycin 250 mg Tablet 250 mg PO EVERY OTHER DAY 30 Days Qty: 15 0RF prednisone 10 mg tablet See Taper PO DIRECTED Qty: 42 0RF Taper: predniSONE 60-10 60 mg Daily for 2 Days and 0 Hour 50 mg Daily for 2 Days and 0 Hour 40 mg Daily for 2 Days and 0 Hour 30 mg Daily for 2 Days and 0 Hour 20 mg Daily for 2 Days and 0 Hour 10 mg Daily for 2 Days and 0 Hour Rx Instructions: see taper instructions prednisone 5 mg tablet 5 mg PO DAILY Qty: 30 0RF Rx Instructions: Start daily after finishing steroid taper cyanocobalamin (vitamin B-12) 1,000 mcg capsule 1,000 mcg PO DAILY Qty: 90 0RF aspirin 81 mg Tablet,Delayed Release (Dr/Ec) 81 mg PO BEDTIME ascorbic acid (vitamin C) [Vitamin C] 500 mg Tablet 500 mg PO DAILY quetiapine 50 mg tablet 50 mg PO DAILY budesonide-formoterol [Symbicort] 80-4.5 mcg/actuation HFA aerosol inhaler 1 inh inhalation BID Qty: 10.2 3RF potassium chloride 20 mEq tablet extended release 20 meq PO DAILY Qty: 7 0RF albuterol sulfate 90 mcg/actuation HFA aerosol inhaler 2 inh INHALATION Q4H PRN (Reason: shortness of breath or wheezing) Qty: 18 0RF hydroxyzine HCl 25 mg tablet 25 mg PO Q6H PRN (Reason: anxiety) Qty: 10 0RF Coding Level of Care Code ED Electric Meter Installer for Ji Melgar
[2022-12-02 17:34] VITALS: O2SAT 94
== END 2022-12-02 17:37 | disposition left against medical advice (07) ==
PROVIDERS: Emergency Provider Family Medicine
DX: F41.9 Anxiety disorder, unspecified (principal); Z79.82 Long term (current) use of aspirin; Z53.21 Procedure and treatment not carried out due to patient leaving prior to being seen by health care provider; Z87.891 Personal history of nicotine dependence; J44.9 Chronic obstructive pulmonary disease, unspecified
CPT/HCPCS: 99282

== ENCOUNTER 2022-12-03 19:33 | Emergency (ER) | payer MEDICARE, SELFPAY ==
[2022-12-03 19:34] VITALS: BP 139/102; PULSE 116; RESP 26; TEMP 36.8; O2SAT 97; BMI 25.4
[2022-12-03 19:54] LABS: Basophils % 0.4 %; Eosinophils # 0.2 10^3/uL (0.0-0.8); Eosinophils % 1.8 %; Hematocrit 41.7 % (36-47); Lymphocytes # 1.4 10^3/uL (0.8-4.8); Lymphocytes % 16.6 %; Mean Corpuscular HGB Conc 33.1 g/dL (30-55); Mean Corpuscular Hemoglobin 32.4 pg (27-33); Mean Corpuscular Volume 97.9 fl (85-98); Mean Platelet Volume 10.4 fL (7.4-10.4); Monocytes # 0.6 10^3/uL (0.2-0.9); Monocytes % 7.2 %; Neutrophils # 6.15 10^3/uL (1.8-7.7); Neutrophils % 73.5 %; Nucleated Red Blood Cells % 0 %; Platelet Count 338 10^3/cmm (157-399); Red Blood Count 4.26 10^6/uL (3.85-5.65); Red Cell Distribution Width 13.7 % (12.1-15.1); White Blood Count 8.36 10^3/uL (3.29-11.43)
[2022-12-03 20:16] LABS: Alanine Aminotransferase 34 U/L (0-33); Albumin Level 4.2 g/dL (3.5-5.2); Alkaline Phosphatase 83 U/L (35-105); Anion Gap 11.5 (5-19); Aspartate Amino Transferase 28 U/L (0-32); Blood Urea Nitrogen 26 mg/dL (8-23); Calcium 9.3 mg/dL (8.5-10.5); Carbon Dioxide 35 mmol/L (22-29); Chloride 99 mmol/L (98-107); Creatinine Clr Calc Pharmacy 49.5616; Globulin 2.5 g/dL (1.3-4.6); Glucose 295 mg/dL (65-115); Osmolality Calculated 308 mOsm/kg (285-295); Potassium 4.5 mmol/L (3.5-5.1); Sodium 141 mmol/L (136-145); Total Bilirubin 0.6 mg/dL (0.15-1.2); Total Protein 6.7 g/dL (6.6-8.7)
--- NOTE | 2022-12-03 20:25 | W.ED.WEAKNES ---
HPI - Weakness General: Chief complaint: Weakness Stated complaint: weakness Time Seen by Provider: 12/03/22 19:35 History of Present Illness: 72-year-old female with history of COPD and oxygen dependent, anxiety, mood disorder, panic attack and benzodiazepine dependency. Patient was seen and evaluated multiple times for similar complaint. Upon present emergency room today patient denies any specific reason why she called EMS but denies any headache, chest pain, cough, coughing up blood or vomiting blood. No sick contact or recent foreign travel. Patient was seen and evaluated by me yesterday for similar complaint but decided to leave AGAINST MEDICAL ADVICE. Associated symptoms: Denies chest pain, dysuria or headache(s) Review of Systems General: Reports: 10 or more systems reviewed and unremarkable except in HPI and below Card: Denies: chest pain, palpitations, irregular heart rhythm or edema Resp: Denies: dyspnea, productive cough, non-productive cough, wheezing, stridor, pain on inspiration or change in phlegm color : Denies: flank pain, difficulty voiding, dysuria, urinary frequency, urinary urgency or urinary hesitancy Musc: Denies: neck pain, back pain, extremity pain, extremity swelling, joint pain, joint swelling, joint redness or joint warmth Neuro: Denies: headache(s), numbness in extremities, weakness in extremities, sensory changes, lack of coordination or difficulty walking PFS ED PFSH: Medical History Acute exacerbation of chronic obstructive airways disease Acute on chronic respiratory failure with hypoxia and hypercapnia Acute respiratory distress Acute respiratory distress Anxiety disorder Asthma-COPD overlap syndrome Chronic respiratory failure with hypoxia COPD (chronic obstructive pulmonary disease) Opioid contract exists Panic anxiety syndrome Panic attacks Right lower lobe pneumonia Surgical History History of appendectomy History of cholecystectomy History of hysterectomy Hx of tonsillectomy Family History Other No pertinent family history Social History Smoking and tobacco status: former smoker Quit status (tobacco): has quit using tobacco Year quit tobacco: 2014 - 1PPD x 40 Years Alcohol intake: never Substance/Drug Use: never Lives independently: Yes Household members: none Current occupational status: disabled Pets and animals: Yes Pets & animals: dog(s) Do you think of yourself as: Straight/Heterosexual Current gender identity: Female Physical Exam Const: COMMON NORMALS: no acute distress, average body habitus, patient oriented x3, no limitations, healthy appearing, alert and well nourished Neck/C-Spine: COMMON NORMALS: no JVD Chest: COMMONS NORMALS: normal inspection of the chest, normal palpation of entire chest wall, normal inspection of the breasts and normal palpation of the breasts Breast/axilla inspection: Yes normal inspection of the breasts BREAST/AXILLA PALPATION: Yes normal palpation of the breasts Resp: COMMON NORMALS: normal respiratory effort, No retractions, No use of accessory muscles, clear to auscultation bilaterally and percussion normal AUSCULTATION: clear to auscultation bilaterally and wheezes PERCUSSION: percussion normal Cardio: COMMON NORMALS: no JVD, regular rate, regular rhythm, S1 normal heart sound present, S2 normal heart sound present, No gallops present (Cardio), No clicks present (Cardio), No murmurs present (Cardio), No rub (Cardio) and Peripheral pulses 2+ throughout RATE: regular rate RHYTHM: regular rhythm HEART SOUNDS: S1 normal heart sound present and S2 normal heart sound present PERIPHERAL PULSES: Peripheral pulses 2+ throughout Neuro: COMMON NORMALS: patient oriented x3 SENSORIUM/ORIENTATION: Yes alert Psych: COMMON NORMALS: mental status grossly normal, Normal thought process present, cooperative, normal affect, speech normal, activity/motor behavior normal, denies hallucinations, denies homicidal ideation and denies suicidal ideation SPEECH: Yes normal speech THOUGHT PROCESS: Normal thought process present Skin: COMMON NORMALS: no rashes or lesions noted, no wounds, turgor normal, no jaundice, no petechiae and no mottling GENERAL SKIN EXAM: no rashes or lesions noted and turgor normal Course Vital Signs: Vital signs: Vital Signs Temperature 98.3 F 12/03/22 19:34 Pulse Rate 116 H 12/03/22 19:34 Respiratory Rate 26 H 12/03/22 19:34 Blood Pressure 139/102 12/03/22 19:34 Pulse Oximetry 97 12/03/22 19:34 Oxygen Delivery Me thod Nasal Cannula 12/03/22 19:34 Oxygen Flow Rate 6 12/03/22 19:34 MDM - Weakness Medical Decision Making Patient made comfortable emergency room. Lab was done. Patient decided to leave before discharge instruction instruction. She was discharged home via EMS. Differential Diagnosis Likely acute myocardial infarction, anemia, hypoglycemia, hypothyroidism, rhabdomyolysis, sepsis and dehydration Lab Data 12/03/22 19:48 12/03/22 19:48 Laboratory Results WBC 8.36 10^3/uL (3.29-11.43) 12/03/22 19:48 RBC 4.26 10^6/uL (3.85-5.65) 12/03/22 19:48 Hgb 13.80 g/dL (11.27-16.99) 12/03/22 19:48 Hct 41.7 % (36-47) 12/03/22 19:48 MCV 97.9 fl (85-98) 12/03/22 19:48 MCH 32.4 pg (27-33) 12/03/22 19:48 MCHC 33.1 g/dL (30-55) 12/03/22 19:48 RDW 13.7 % (12.1-15.1) 12/03/22 19:48 Plt Count 338 10^3/cmm (157-399) 12/03/22 19:48 MPV 10.4 fL (7.4-10.4) 12/03/22 19:48 Neut % (Auto) 73.5 % 12/03/22 19:48 Lymph % (Auto) 16.6 % 12/03/22 19:48 [place] % (Auto) 7.2 % 12/03/22 19:48 Eos % (Auto) 1.8 % 12/03/22 19:48 Baso % (Auto) 0.4 % 12/03/22 19:48 Neut # (Auto) 6.15 10^3/uL (1.8-7.7) 12/03/22 19:48 Lymph # (Auto) 1.4 10^3/uL (0.8-4.8) 12/03/22 19:48 [place] # (Auto) 0.6 10^3/uL (0.2-0.9) 12/03/22 19:48 Eos # (Auto) 0.2 10^3/uL (0.0-0.8) 12/03/22 19:48 Baso # (Auto) 0.0 10^3/uL (0.0-0.1) 12/03/22 19:48 Nucleated RBC % (auto) 0 % 12/03/22 19:48 Nucleated RBCs # 0.0 /100WBC 12/03/22 19:48 Sodium 141 mmol/L (136-145) 12/03/22 19:48 Potassium 4.5 mmol/L (3.5-5.1) 12/03/22 19:48 Chloride 99 mmol/L (98-107) 12/03/22 19:48 Carbon Dioxide 35 mmol/L (22-29) H 12/03/22 19:48 Anion Gap 11.5 (5-19) 12/03/22 19:48 BUN 26 mg/dL (8-23) H 12/03/22 19:48 Creatinine 0.5 mg/dL (0.5-0.9) 12/03/22 19:48 GFR Calculation Not Reportable 12/03/22 19:48 Glucose 295 mg/dL (65-115) H 12/03/22 19:48 Calculated Osmolality 308 mOsm/kg (285-295) H 12/03/22 19:48 Calcium 9.3 mg/dL (8.5-10.5) 12/03/22 19:48 Total Bilirubin 0.6 mg/dL (0.15-1.2) 12/03/22 19:48 AST 28 U/L (0-32) 12/03/22 19:48 ALT 34 U/L (0-33) H 12/03/22 19:48 Alkaline Phosphatase 83 U/L (35-105) 12/03/22 19:48 Total Protein 6.7 g/dL (6.6-8.7) 12/03/22 19:48 Albumin 4.2 g/dL (3.5-5.2) 12/03/22 19:48 Globulin 2.5 g/dL (1.3-4.6) 12/03/22 19:48 No radiology studies performed this visit Discharge Plan Discharge Patient Disposition: Home Clinical Impression: Mood disorder, Bipolar 1 disorder, COPD (chronic obstructive pulmonary disease) Condition: Stable Prescriptions: No Action hydrocodone-acetaminophen 10-325 mg Tablet 1 - 2 tab PO QID PRN (Reason: Pain) citalopram 10 mg tablet 10 mg PO DAILY clonazepam 0.5 mg Tablet 1 mg PO QID PRN (Reason: Anxiety) azithromycin 250 mg Tablet 250 mg PO EVERY OTHER DAY 30 Days Qty: 15 0RF prednisone 10 mg tablet See Taper PO DIRECTED Qty: 42 0RF Taper: predniSONE 60-10 60 mg Daily for 2 Days and 0 Hour 50 mg Daily for 2 Days and 0 Hour 40 mg Daily for 2 Days and 0 Hour 30 mg Daily for 2 Days and 0 Hour 20 mg Daily for 2 Days and 0 Hour 10 mg Daily for 2 Days and 0 Hour Rx Instructions: see taper instructions prednisone 5 mg tablet 5 mg PO DAILY Qty: 30 0RF Rx Instructions: Start daily after finishing steroid taper cyanocobalamin (vitamin B-12) 1,000 mcg capsule 1,000 mcg PO DAILY Qty: 90 0RF aspirin 81 mg Tablet,Delayed Release (Dr/Ec) 81 mg PO BEDTIME ascorbic acid (vitamin C) [Vitamin C] 500 mg Tablet 500 mg PO DAILY quetiapine 50 mg tablet 50 mg PO DAILY budesonide-formoterol [Symbicort] 80-4.5 mcg/actuation HFA aerosol inhaler 1 inh inhalation BID Qty: 10.2 3RF potassium chloride 20 mEq tablet extended release 20 meq PO DAILY Qty: 7 0RF albuterol sulfate 90 mcg/actuation HFA aerosol inhaler 2 inh INHALATION Q4H PRN (Reason: shortness of breath or wheezing) Qty: 18 0RF hydroxyzine HCl 25 mg tablet 25 mg PO Q6H PRN (Reason: anxiety) Qty: 10 0RF Discharge Orders: Discharge ED (Routine); Ordered 12/03/22 Ordered By: Skye Mendosa Discharge Diet: Advance as tolerated Discharge Activity: Resume usual activity Patient Instructions: Opioid Safety, Pain Management Coding Level of Care Code ED Director Of Medical Staff Services for Ji Melgar
[2022-12-03 20:39] VITALS: PULSE 100; RESP 20; O2SAT 97
== END 2022-12-03 20:40 | disposition home or self-care (01) ==
PROVIDERS: Emergency Provider Family Medicine
DX: F31.9 Bipolar disorder, unspecified (principal); J44.9 Chronic obstructive pulmonary disease, unspecified; Z79.82 Long term (current) use of aspirin; Z87.891 Personal history of nicotine dependence; Z99.81 Dependence on supplemental oxygen
CPT/HCPCS: 80053; 85025; 99283

== ENCOUNTER 2022-12-05 18:11 | Emergency (ER) | payer MEDICARE, SELFPAY ==
[2022-12-05 18:13] VITALS: BP 156/93; PULSE 101; RESP 18; TEMP 36.8; O2SAT 100
[2022-12-05 18:39] VITALS: BP 156/93; PULSE 97; O2SAT 100
--- NOTE | 2022-12-05 19:04 | ECG_ITS ---
[facility] Test Date: 2022-12-05 Pat Name: Socorro Montes De Oca Department: Room: Gender: Female Technical Intern: : 1950 Requested By: Skye Willett Order Number: [id number] Octavio MD: Jamaal Drummond M.D. Measurements Intervals [place] Rate: 84 P: 82 [place]: 129 QRS: 56 QRSD: 74 T: 73 QT: 356 QTc: 423 Interpretive Statements SINUS RHYTHM POSSIBLE RIGHT VENTRICULAR CONDUCTION DELAY [RSR (QR) IN V1/V2] Compared to ECG 11/27/2022 14:36:14 No significant changes Electronically Signed On 12-06-2022 7:41:11 CDT by Jamaal Drummond M.D. [id number]
[2022-12-05 19:19] LABS: Basophils # 0.1 10^3/uL (0.0-0.1); Basophils % 0.6 %; Eosinophils # 0.2 10^3/uL (0.0-0.8); Eosinophils % 1.8 %; Hematocrit 42.9 % (36-47); Lymphocytes # 1.2 10^3/uL (0.8-4.8); Lymphocytes % 13.9 %; Mean Corpuscular HGB Conc 32.9 g/dL (30-55); Mean Corpuscular Hemoglobin 32.1 pg (27-33); Mean Corpuscular Volume 97.7 fl (85-98); Mean Platelet Volume 10.2 fL (7.4-10.4); Monocytes # 0.7 10^3/uL (0.2-0.9); Monocytes % 8.3 %; Neutrophils # 6.44 10^3/uL (1.8-7.7); Nucleated Red Blood Cells % 0 %; Platelet Count 354 10^3/cmm (157-399); Red Blood Count 4.39 10^6/uL (3.85-5.65); Red Cell Distribution Width 13.5 % (12.1-15.1); White Blood Count 8.57 10^3/uL (3.29-11.43)
[2022-12-05 19:31] VITALS: BP 152/84; PULSE 98; O2SAT 98
[2022-12-05 19:37] LABS: Add Urine Microscopic? NO; Charge for UA Resulting for Rev
[2022-12-05 19:38] LABS: SARS Covid-2 Antigen negative (Negative)
[2022-12-05 19:47] LABS: Alanine Aminotransferase 28 U/L (0-33); Albumin Level 4.2 g/dL (3.5-5.2); Alkaline Phosphatase 82 U/L (35-105); Anion Gap 11.1 (5-19); Aspartate Amino Transferase 30 U/L (0-32); Blood Urea Nitrogen 13 mg/dL (8-23); Calcium 9.5 mg/dL (8.5-10.5); Carbon Dioxide 37 mmol/L (22-29); Chloride 99 mmol/L (98-107); Creatinine Clr Calc Pharmacy 49.5616; Globulin 2.8 g/dL (1.3-4.6); Glucose 118 mg/dL (65-115); Osmolality Calculated 297 mOsm/kg (285-295); Potassium 4.1 mmol/L (3.5-5.1); Sodium 143 mmol/L (136-145); Thyroid Stimulating Hormone 5.73 uIU/mL (0.27-4.20); Total Bilirubin 0.7 mg/dL (0.15-1.2)
[2022-12-05 19:49] LABS: Amphetamines Screen Urine Negative (Negative); Barbiturates Screen Urine Negative (Negative); Benzodiazepines Screen Urine Negative (Negative); Bilirubin Urine Neg (Negative); Blood Urine Neg (Negative); Cocaine Screen Urine Negative (Negative); Glucose Urine UA Norm (Normal); Ketones Urine Negative (Negative); Leukocyte Esterase Urine Negative (Negative); Nitrate Urine Negative (Negative); Opiate Screen Urine Negative (Negative); PCP Screen Urine Negative (Negative); Protein Urine Neg (Negative); Sulfosalicylic Acid Urine Negative (Negative); THC Screen Urine Negative (Negative); Urine Appearance Clear (CLEAR); Urine Color Yellow (Yellow); Urobilinogen Urine Norm (Negative); pH Urine 8 (5-7)
--- NOTE | 2022-12-05 20:07 | W.ED.PSYCHS ---
Documented by User: Skye Mendosa MD 12/31/22 11:09 HPI - Psych General: Chief Complaint: Psychiatric Symptoms Stated Complaint: Behavior issues Time Seen by Provider: 12/05/22 18:39 History of Present Illness: 72 years old female with history of mood disorder, benzodiazepine dependency, oxygen dependent COPD anxiety, and panic attack. This is my sixth time seeing this patient within the past 7 days. Patient was brought in by EMS after she called 911 about 7-8 times today. According to police district switchboard operator patient has made numerous 911 call for no apparent reason. Patient denies any suicidal or homicidal ideation. No hallucination. Has any recent head injury or fall. Denies any cough, coughing up blood, fever or chills. No dysuria, hematuria urine frequency. Patient lives alone with her dog. Associated symptoms: Deny auditory hallucinations, visual hallucinations, depression, homicidal ideation or suicidal ideation Review of Systems General: Reports: 10 or more systems reviewed and unremarkable except in HPI and below Const: Reports: snoring; Denies: fever(s), chills, body aches, change in appetite, change in weight, fatigue, malaise, night sweats, diaphoresis, change in sleep pattern or daytime sleepiness Resp: Denies: dyspnea, productive cough, non-productive cough, wheezing, pain on inspiration, change in phlegm color, hemoptysis or chest congestion : Denies: flank pain, difficulty voiding, dysuria, urinary frequency, urinary urgency or urinary hesitancy Musc: Denies: neck pain, back pain or extremity pain Skin/Breast: Denies: rash, pruritus or erythema Psych: Reports: anxiety; Denies: depression, mood swings, sleeping less, sleeping more, paranoia, difficulty concentrating, visual hallucinations, auditory hallucinations, tactile hallucinations, suicidal ideation or homicidal ideation PFS ED PFSH: Medical History (Updated 12/31/22 @ 07:31 by Casey Regan DO) Acute exacerbation of chronic obstructive airways disease Acute on chronic respiratory failure with hypoxia and hypercapnia Acute respiratory distress Acute respiratory distress Anxiety disorder Asthma-COPD overlap syndrome Chronic respiratory failure with hypoxia COPD (chronic obstructive pulmonary disease) Delusional disorder Fibromyalgia syndrome Generalized anxiety disorder MDD (major depressive disorder) Opioid contract exists Panic anxiety syndrome Panic attacks Right lower lobe pneumonia Surgical History History of appendectomy History of cholecystectomy History of hysterectomy Hx of tonsillectomy Family History Other No pertinent family history Social History Smoking and tobacco/nicotine status: former use of tobacco/nicotine Quit status (tobacco/nicotine): has quit using Year quit tobacco: 2015 - 1PPD x 40 Years Alcohol intake: never Substance/Drug Use: never Lives independently: Yes Household members: none Current occupational status: disabled Pets and animals: Yes Pets & animals: dog(s) Do you think of yourself as: Straight/Heterosexual Current gender identity: Female Physical Exam Const: COMMON NORMALS: no acute distress, patient oriented x3, alert and well nourished OTHER: Patient still wearing the same clothes that she wore 2 to 3 days ago. Eye: COMMON NORMALS: Equal, round and reactive pupils present, EOMs intact bilaterally, conjunctivae normal, no scleral icterus, no papilledema, normal visual tirado by confrontation and fundi normal bilaterally CONJUNCTIVA: Yes conjunctivae normal PUPIL: Yes Equal, round and reactive pupils present DIRECT OPHTHALMOSCOPY: Yes no papilledema and Yes fundi normal bilaterally Neck/C-Spine: COMMON NORMALS: no JVD Chest: COMMONS NORMALS: normal inspection of the chest, normal palpation of entire chest wall, normal inspection of the breasts and normal palpation of the breasts Breast/axilla inspection: Yes normal inspection of the breasts BREAST/AXILLA PALPATION: Yes normal palpation of the breasts Resp: AUSCULTATION: no crackles, no rales, no rhonchi, wheezes, diminished lung sounds, no bronchovesicular breath sounds, no egophony, no tactile fremitus and No rub present Cardio: COMMON NORMALS: no JVD, regular rate, regular rhythm, S1 normal heart sound present, S2 normal heart sound present, No gallops present (Cardio), No clicks present (Cardio), No murmurs present (Cardio), No rub (Cardio) and Peripheral pulses 2+ throughout RATE: regular rate RHYTHM: regular rhythm HEART SOUNDS: S1 normal heart sound present and S2 normal heart sound present PERIPHERAL PULSES: Peripheral pulses 2+ throughout Extremity: COMMON NORMALS: normal to inspection, full ROM, capillary refill normal, no joint enlargement, no clubbing, cyanosis or edema, no calf tenderness and no pedal edema Neuro: COMMON NORMALS: patient oriented x3 SENSORIUM/ORIENTATION: Yes alert Course Vital Signs: Vital signs: Vital Signs Temperature 97.8 F 12/06/22 06:00 Pulse Rate 99 12/06/22 06:19 Respiratory Rate 16 12/06/22 06:19 Blood Pressure 146/71 12/06/22 06:00 Pulse Oximetry 99 12/06/22 06:19 Oxygen Delivery Me thod Nasal Cannula 12/06/22 06:19 Oxygen Flow Rate 2 12/06/22 06:19 MDM - Psych Medical Decision Making Patient made comfortable emergency room. Patient extensive work-up including CBC, CMP, EKG, UDS, urine done in the emergency room. Again I spoke with the police district switchboard operator that called ambulance. Patient has made numerous 911 call in the past few days. Patient made about 7-8 normal calls today. Police did report and affidavits about patient not being safe by self at home. Plan is to commit patient to inpatient geriatric psychiatric unit for further evaluation and treatment Differential Diagnosis Likely acute psychosis, chronic schizophrenia, suicidal ideation, bipolar disorder, depression, drug-induced psychotic disorder and acute anxiety Lab Data 12/05/22 19:13 12/05/22 19:13 Radiology Impressions Chest X-Ray 12/05/22 20:51 IMPRESSION: No acute findings. Laboratory Results WBC 8.57 10^3/uL (3.29-11.43) 12/05/22 19:13 RBC 4.39 10^6/uL (3.85-5.65) 12/05/22 19:13 Hgb 14.10 g/dL (11.27-16.99) 12/05/22 19:13 Hct 42.9 % (36-47) 12/05/22 19:13 MCV 97.7 fl (85-98) 12/05/22 19:13 MCH 32.1 pg (27-33) 12/05/22 19:13 MCHC 32.9 g/dL (30-55) 12/05/22 19:13 RDW 13.5 % (12.1-15.1) 12/05/22 19:13 Plt Count 354 10^3/cmm (157-399) 12/05/22 19:13 MPV 10.2 fL (7.4-10.4) 12/05/22 19:13 Neut % (Auto) 75.0 % 12/05/22 19:13 Lymph % (Auto) 13.9 % 12/05/22 19:13 [place] % (Auto) 8.3 % 12/05/22 19:13 Eos % (Auto) 1.8 % 12/05/22 19:13 Baso % (Auto) 0.6 % 12/05/22 19:13 Neut # (Auto) 6.44 10^3/uL (1.8-7.7) 12/05/22 19:13 Lymph # (Auto) 1.2 10^3/uL (0.8-4.8) 12/05/22 19:13 [place] # (Auto) 0.7 10^3/uL (0.2-0.9) 12/05/22 19:13 Eos # (Auto) 0.2 10^3/uL (0.0-0.8) 12/05/22 19:13 Baso # (Auto) 0.1 10^3/uL (0.0-0.1) 12/05/22 19:13 Nucleated RBC % (auto) 0 % 12/05/22 19:13 Nucleated RBCs # 0.0 /100WBC 12/05/22 19:13 Sodium 143 mmol/L (136-145) 12/05/22 19:13 Potassium 4.1 mmol/L (3.5-5.1) 12/05/22 19:13 Chloride 99 mmol/L (98-107) 12/05/22 19:13 Carbon Dioxide 37 mmol/L (22-29) H 12/05/22 19:13 Anion Gap 11.1 (5-19) 12/05/22 19:13 BUN 13 mg/dL (8-23) 12/05/22 19:13 Creatinine 0.5 mg/dL (0.5-0.9) 12/05/22 19:13 GFR Calculation Not Reportable 12/05/22 19:13 Glucose 118 mg/dL (65-115) H 12/05/22 19:13 Calculated Osmolality 297 mOsm/kg (285-295) H 12/05/22 19:13 Calcium 9.5 mg/dL (8.5-10.5) 12/05/22 19:13 Total Bilirubin 0.7 mg/dL (0.15-1.2) 12/05/22 19:13 AST 30 U/L (0-32) 12/05/22 19:13 ALT 28 U/L (0-33) 12/05/22 19:13 Alkaline Phosphatase 82 U/L (35-105) 12/05/22 19:13 Total Protein 7.0 g/dL (6.6-8.7) 12/05/22 19:13 Albumin 4.2 g/dL (3.5-5.2) 12/05/22 19: Globulin 2.8 g/dL (1.3-4.6) 12/05/22 19:13 TSH 5.73 uIU/mL (0.27-4.20) H 12/05/22 19: Free T4 0.85 ng/dL (0.82-1.77) 12/05/22 19:13 Urine Color Yellow (Yellow) 12/05/22 19:30 Urine Appearance Clear (CLEAR) 12/05/22 19:30 Urine pH 8 (5-7) H 12/05/22 19:30 Ur Specific [place] 1.010 (1.005-1.030) 12/05/22 19:30 Urine Protein Neg (Negative) 12/05/22 19:30 Urine Glucose (UA) Norm (Normal) 12/05/22 19:30 Urine Ketones Negative (Negative) 12/05/22 19:30 Urine Blood Neg (Negative) 12/05/22 19:30 Urine Nitrate Negative (Negative) 12/05/22 19:30 Urine Bilirubin Neg (Negative) 12/05/22 19:30 Prot Sulfosalicylic Acd Negative (Negative) 12/05/22 19:30 Urine Urobilinogen Norm mg/dL (Negative) 12/05/22 19:30 Ur Leukocyte Esterase Negative (Negative) 12/05/22 19:30 Nasal Influ A H1 2008 PCR Not detected (NOT DETECT) 12/06/22 00:59 Salicylates < 0.3 mg/dL (3-10) L 12/05/22 19:13 Urine Opiates Screen Negative ng/mL (Negative) 12/05/22 19:30 Acetaminophen < 5.0 ug/mL (10-30) L 12/05/22 19:13 Ur Barbiturates Screen Negative ng/mL (Negative) 12/05/22 19:30 Ur Phencyclidine Scrn Negative ng/mL (Negative) 12/05/22 19:30 Ur Amphetamines Screen Negative ng/mL (Negative) 12/05/22 19:30 U Benzodiazepines Scrn Negative ng/mL (Negative) 12/05/22 19:30 Urine Cocaine Screen Negative ng/mL (Negative) 12/05/22 19:30 U Marijuana (THC) Screen Negative ng/mL (Negative) 12/05/22 19:30 Ethyl Alcohol < 10 mg/dL (0-10) 12/05/22 19:13 Adenovirus (PCR) Not detected (NOT DETECT) 12/06/22 00:59 C. pneumoniae DNA (PCR) Not detected (NOT DETECT) 12/06/22 00:59 Coronavirus 229E (PCR) Not detected (NOT DETECT) 12/06/22 00:59 Human Metapneumovir PCR Not detected (NOT DETECT) 12/06/22 00:59 Influenza A (H1) PCR Not detected (NOT DETECT) 12/06/22 00:59 Influenza A (H3) PCR Not detected (NOT DETECT) 12/06/22 00:59 Influenza Type A (PCR) Not detected (NOT DETECT) 12/06/22 00:59 Influenza Type B (PCR) Not detected (NOT DETECT) 12/06/22 00:59 M. pneumoniae (PCR) Not detected (NOT DETECT) 12/06/22 00:59 Parainfluenza 1 (PCR) Not detected (NOT DETECT) 12/06/22 00:59 Parainfluenza 2 (PCR) Not detected (NOT DETECT) 12/06/22 00:59 Parainfluenza 3 (PCR) Not detected (NOT DETECT) 12/06/22 00:59 Parainfluenza 4 (PCR) Not detected (NOT DETECT) 12/06/22 00:59 RSV Type A (PCR) Not detected (NOT DETECT) 12/06/22 00:59 RSV Type B (PCR) Not detected (NOT DETECT) 12/06/22 00:59 Entero/Rhino (PCR) Not detected (NOT DETECT) 12/06/22 00:59 SARS-CoV-2 (PCR) Not detected (NOT DETECT) 12/06/22 00:59 SARS-CoV-2 Ag (Rapid) negative (Negative) 12/05/22 19:16 No radiology studies performed this visit EKG Data EKG 1: Interpretation: Sinus rhythm with rate of [address] depression. Nonspecific ST changes. Interval 129 URS duration 74 QT 356. Discharge Plan Discharge Patient Disposition: Xfer Psychiatric Hosp Clinical Impression: Benzodiazepine dependence, Mood disorder, Bipolar 1 disorder Condition: Stable Referrals: Benjamin Gonzalez MD [Primary Care Provider] - Coding Level of Care Code ED Manufacturing Process Technician for Chg Fwd Documented by User: Harshad Gardner MD 12/06/22 08:31 HPI - Psych General: Chief Complaint: Psychiatric Symptoms Stated Complaint: Behavior issues Time Seen by Provider: 12/05/22 18:39 PFSH ED PFSH: Medical History (Updated 12/31/22 @ 07:31 by Casey Regan DO) Acute exacerbation of chronic obstructive airways disease Acute on chronic respiratory failure with hypoxia and hypercapnia Acute respiratory distress Acute respiratory distress Anxiety disorder Asthma-COPD overlap syndrome Chronic respiratory failure with hypoxia COPD (chronic obstructive pulmonary disease) Delusional disorder Fibromyalgia syndrome Generalized anxiety disorder MDD (major depressive disorder) Opioid contract exists Panic anxiety syndrome Panic attacks Right lower lobe pneumonia Surgical History History of appendectomy History of cholecystectomy History of hysterectomy Hx of tonsillectomy Family History Other No pertinent family history Social History Smoking and tobacco/nicotine status: former use of tobacco/nicotine Quit status (tobacco/nicotine): has quit using Year quit tobacco: 2015 - 1PPD x 40 Years Alcohol intake: never Substance/Drug Use: never Lives independently: Yes Household members: none Current occupational status: disabled Pets and animals: Yes Pets & animals: dog(s) Do you think of yourself as: Straight/Heterosexual Current gender identity: Female Course Vital Signs: Vital signs: Vital Signs Temperature 97.8 F 12/06/22 06:00 Pulse Rate 99 12/06/22 06:19 Respiratory Rate 16 12/06/22 06:19 Blood Pressure 146/71 12/06/22 06:00 Pulse Oximetry 99 12/06/22 06:19 Oxygen Delivery Me thod Nasal Cannula 12/06/22 06:19 Oxygen Flow Rate 2 12/06/22 06:19 MDM - Psych Medical Decision Making Patient made comfortable emergency room. Patient extensive work-up including CBC, CMP, EKG, UDS, urine done in the emergency room. Again I spoke with the police district switchboard operator that called ambulance. Patient has made numerous 911 call in the past few days. Patient made about 7-8 normal calls today. Police did report and affidavits about patient not being safe by self at home. Plan is to commit patient to inpatient geriatric psychiatric unit for further evaluation and treatment Pt medicall cleared and accepted to [facility]. will transfer for [facility] Lab Data 12/05/22 19:13 12/05/22 19:13 Radiology Impressions Chest X-Ray 12/05/22 20:51 IMPRESSION: No acute findings. Laboratory Results WBC 8.57 10^3/uL (3.29-11.43) 12/05/22 19:13 RBC 4.39 10^6/uL (3.85-5.65) 12/05/22 19:13 Hgb 14.10 g/dL (11.27-16.99) 12/05/22 19:13 Hct 42.9 % (36-47) 12/05/22 19:13 MCV 97.7 fl (85-98) 12/05/22 19:13 MCH 32.1 pg (27-33) 12/05/22 19:13 MCHC 32.9 g/dL (30-55) 12/05/22 19:13 RDW 13.5 % (12.1-15.1) 12/05/22 19:13 Plt Count 354 10^3/cmm (157-399) 12/05/22 19:13 MPV 10.2 fL (7.4-10.4) 12/05/22 19:13 Neut % (Auto) 75.0 % 12/05/22 19:13 Lymph % (Auto) 13.9 % 12/05/22 19:13 [place] % (Auto) 8.3 % 12/05/22 19:13 Eos % (Auto) 1.8 % 12/05/22 19:13 Baso % (Auto) 0.6 % 12/05/22 19:13 Neut # (Auto) 6.44 10^3/uL (1.8-7.7) 12/05/22 19:13 Lymph # (Auto) 1.2 10^3/uL (0.8-4.8) 12/05/22 19:13 [place] # (Auto) 0.7 10^3/uL (0.2-0.9) 12/05/22 19:13 Eos # (Auto) 0.2 10^3/uL (0.0-0.8) 12/05/22 19:13 Baso # (Auto) 0.1 10^3/uL (0.0-0.1) 12/05/22 19:13 Nucleated RBC % (auto) 0 % 12/05/22 19:13 Nucleated RBCs # 0.0 /100WBC 12/05/22 19:13 Sodium 143 mmol/L (136-145) 12/05/22 19:13 Potassium 4.1 mmol/L (3.5-5.1) 12/05/22 19:13 Chloride 99 mmol/L (98-107) 12/05/22 19:13 Carbon Dioxide 37 mmol/L (22-29) H 12/05/22 19:13 Anion Gap 11.1 (5-19) 12/05/22 19:13 BUN 13 mg/dL (8-23) 12/05/22 19:13 Creatinine 0.5 mg/dL (0.5-0.9) 12/05/22 19:13 GFR Calculation Not Reportable 12/05/22 19:13 Glucose 118 mg/dL (65-115) H 12/05/22 19:13 Calculated Osmolality 297 mOsm/kg (285-295) H 12/05/22 19:13 Calcium 9.5 mg/dL (8.5-10.5) 12/05/22 19:13 Total Bilirubin 0.7 mg/dL (0.15-1.2) 12/05/22 19:13 AST 30 U/L (0-32) 12/05/22 19:13 ALT 28 U/L (0-33) 12/05/22 19:13 Alkaline Phosphatase 82 U/L (35-105) 12/05/22 19:13 Total Protein 7.0 g/dL (6.6-8.7) 12/05/22 19:13 Albumin 4.2 g/dL (3.5-5.2) 12/05/22 19:13 Globulin 2.8 g/dL (1.3-4.6) 12/05/22 19:13 TSH 5.73 uIU/mL (0.27-4.20) H 12/05/22 19: Free T4 0.85 ng/dL (0.82-1.77) 12/05/22 19:13 Urine Color Yellow (Yellow) 12/05/22 19:30 Urine Appearance Clear (CLEAR) 12/05/22 19:30 Urine pH 8 (5-7) H 12/05/22 19:30 Ur Specific [place] 1.010 (1.005-1.030) 12/05/22 19:30 Urine Protein Neg (Negative) 12/05/22 19:30 Urine Glucose (UA) Norm (Normal) 12/05/22 19:30 Urine Ketones Negative (Negative) 12/05/22 19:30 Urine Blood Neg (Negative) 12/05/22 19:30 Urine Nitrate Negative (Negative) 12/05/22 19:30 Urine Bilirubin Neg (Negative) 12/05/22 19:30 Prot Sulfosalicylic Acd Negative (Negative) 12/05/22 19:30 Urine Urobilinogen Norm mg/dL (Negative) 12/05/22 19:30 Ur Leukocyte Esterase Negative (Negative) 12/05/22 19:30 Nasal Influ A H1 2008 PCR Not detected (NOT DETECT) 12/06/22 00:59 Salicylates < 0.3 mg/dL (3-10) L 12/05/22 19:13 Urine Opiates Screen Negative ng/mL (Negative) 12/05/22 19:30 Acetaminophen < 5.0 ug/mL (10-30) L 12/05/22 19:13 Ur Barbiturates Screen Negative ng/mL (Negative) 12/05/22 19:30 Ur Phencyclidine Scrn Negative ng/mL (Negative) 12/05/22 19:30 Ur Amphetamines Screen Negative ng/mL (Negative) 12/05/22 19:30 U Benzodiazepines Scrn Negative ng/mL (Negative) 12/05/22 19:30 Urine Cocaine Screen Negative ng/mL (Negative) 12/05/22 19:30 U Marijuana (THC) Screen Negative ng/mL (Negative) 12/05/22 19:30 Ethyl Alcohol < 10 mg/dL (0-10) 12/05/22 19:13 Adenovirus (PCR) Not detected (NOT DETECT) 12/06/22 00:59 C. pneumoniae DNA (PCR) Not detected (NOT DETECT) 12/06/22 00:59 Coronavirus 229E (PCR) Not detected (NOT DETECT) 12/06/22 00:59 Human Metapneumovir PCR Not detected (NOT DETECT) 12/06/22 00:59 Influenza A (H1) PCR Not detected (NOT DETECT) 12/06/22 00:59 Influenza A (H3) PCR Not detected (NOT DETECT) 12/06/22 00:59 Influenza Type A (PCR) Not detected (NOT DETECT) 12/06/22 00:59 Influenza Type B (PCR) Not detected (NOT DETECT) 12/06/22 00:59 M. pneumoniae (PCR) Not detected (NOT DETECT) 12/06/22 00:59 Parainfluenza 1 (PCR) Not detected (NOT DETECT) 12/06/22 00:59 Parainfluenza 2 (PCR) Not detected (NOT DETECT) 12/06/22 00:59 Parainfluenza 3 (PCR) Not detected (NOT DETECT) 12/06/22 00:59 Parainfluenza 4 (PCR) Not detected (NOT DETECT) 12/06/22 00:59 RSV Type A (PCR) Not detected (NOT DETECT) 12/06/22 00:59 RSV Type B (PCR) Not detected (NOT DETECT) 12/06/22 00:59 Entero/Rhino (PCR) Not detected (NOT DETECT) 12/06/22 00:59 SARS-CoV-2 (PCR) Not detected (NOT DETECT) 12/06/22 00:59 SARS-CoV-2 Ag (Rapid) negative (Negative) 12/05/22 19:16 Discharge Plan Discharge Patient Disposition: Xfer Psychiatric Hosp Clinical Impression: Benzodiazepine dependence, Mood disorder, Bipolar 1 disorder Condition: Stable Referrals: Benjamin Gonzalez MD [Primary Care Provider] - Coding Level of Care Code ED Manufacturing Process Technician for Ji Melgar
--- NOTE | 2022-12-05 20:51 | XRR_ITS ---
PROCEDURE INFORMATION: Exam: XR Chest Exam date and time: 12/05/2022 8:59 PM Age: 72 years old Clinical indication: Other: Copd TECHNIQUE: Imaging protocol: Radiologic exam of the chest. Views: 1 view. COMPARISON: CR XR chest 1V portable [id number] 11/27/2022 2:57 PM FINDINGS: Lungs: Hyperinflated lungs. Calcified right mid lung granuloma. No consolidation. Pleural spaces: Unremarkable. No pleural effusion. No pneumothorax. Heart/Mediastinum: Unremarkable. No cardiomegaly. Vasculature: Aortic arch atherosclerotic calcification. Bones/joints: Unremarkable. Intraperitoneal space: Right upper abdomen surgical clips. XR/XR chest 1V portable [id number] IMPRESSION: No acute findings.
[2022-12-05 21:12] LABS: Alcohol Level < 10 mg/dL (0-10)
--- NOTE | 2022-12-05 22:45 | PC.NURSE ---
Pt served with copy of [employer] rights. All questions answered. Pt voiced concern about dog being at home. Pt stated the only family close by is a Barry Ibrahim [place] - brother in law. Pt states his phone number is at her home in her phone book. Per [facility] [employer], they cannot assist with pt pet.
--- NOTE | 2022-12-06 00:42 | PC.NURSE ---
Pio Nguyen informed nursing staff that patient told her she was going to kill the EMT that brought her in.
[2022-12-06 01:19] LABS: Free T4 Free Thyroxine 0.85 ng/dL (0.82-1.77)
[2022-12-06 01:22] LABS: Acetaminophen < 5.0 ug/mL (10-30); Salicylate < 0.3 mg/dL (3-10)
[2022-12-06] MEDS: HYDROcodone-acetaminophen 5-325 mg Tablet 1 TAB PO ×2 (01:40→06:05)
[2022-12-06 01:42] VITALS: BP 160/87; PULSE 92; RESP 18; O2SAT 97
--- NOTE | 2022-12-06 02:04 | PC.NURSE ---
Patient told Nurse Belle clemente and Marissa Jackson that she was going to cut off that black doctors senthil and shove it up his ass.
[2022-12-06 03:35] LABS: Adenovirus Not Detected (NOT DETECT); Chlamydia Pneumoniae Not Detected (NOT DETECT); Coronavirus 229E,HKU1,NL63,OC4 Not Detected (NOT DETECT); Human Metapneumovirus Not Detected (NOT DETECT); Human Rhinovirus/Enterovirus Not Detected (NOT DETECT); Influenza A Not Detected (NOT DETECT); Influenza A H1 Not Detected (NOT DETECT); Influenza A H1-2009 Not Detected (NOT DETECT); Influenza A H3 Not Detected (NOT DETECT); Influenza B Not Detected (NOT DETECT); Mycoplasma Pneumoniae Not Detected (NOT DETECT); Parainfluenza Virus Type 1 Not Detected (NOT DETECT); Parainfluenza Virus Type 2 Not Detected (NOT DETECT); Parainfluenza Virus Type 3 Not Detected (NOT DETECT); Parainfluenza Virus Type 4 Not Detected (NOT DETECT); Respiratory Syncytial Virus A Not Detected (NOT DETECT); Respiratory Syncytial Virus B Not Detected (NOT DETECT); SARS-COV-2 Not Detected (NOT DETECT)
[2022-12-06 06:00] VITALS: BP 146/71; PULSE 93; RESP 18; TEMP 36.6; O2SAT 98
[2022-12-06] MEDS: albuterol 2.5 mg/3 mL Neb INHALATION (06:18)
[2022-12-06 06:19] VITALS: PULSE 99; RESP 16; O2SAT 99
--- NOTE | 2022-12-06 07:30 | PC.PHAR ---
PT STATES SHE ONLY USES HER 2 INHALERS AND TAKES VIT C AND ASPIRIN 81 MG DAILY. DENIES TAKING ANY OF HER OTHER MEDS.
== END 2022-12-06 10:04 ==
PROVIDERS: Emergency Medicine; Family Medicine; Emergency Provider Emergency Medicine; PCP Family Medicine Adult Medicine
DX: F31.9 Bipolar disorder, unspecified (principal); F13.20 Sedative, hypnotic or anxiolytic dependence, uncomplicated; J44.9 Chronic obstructive pulmonary disease, unspecified; Z87.891 Personal history of nicotine dependence; Z20.822 Contact with and (suspected) exposure to COVID-19
CPT/HCPCS: 36415; 71045; 80053; 80306; 80307; 81003; 84439; 84443; 85025; 87426; 87486; 87581; 87633; 93005; 94640; 99285; J7613

== ENCOUNTER 2022-12-30 19:03 | Emergency (ER) | payer MEDICARE, SELFPAY ==
[2022-12-30 19:05] VITALS: BP 125/80; PULSE 84; RESP 18; TEMP 36.6; O2SAT 100; BMI 3655.6
--- NOTE | 2022-12-30 19:06 | PC.NURSE ---
Pt in room with Charge, provider and myself for initial intake. Pt tells provider that she remembers him yelling, asshole and then I will fight you out . Pt balled up her fists and shook them at provider. Lab in room for blood work, pt refused and yelled that she was going to get her gun and shoot all off us. THen told lab, charge nurse Connor and myself that we are all assholes .
--- NOTE | 2022-12-30 19:20 | ECG_ITS ---
[facility] Test Date: 2022-12-30 Pat Name: Socorro Montes De Oca Department: Room: Gender: Female Water Resources Engineer: : 1950 Requested By: Skye Willett Order Number: [id number] Octavio MD: Giorgi Justin M.D. Measurements Intervals [place] Rate: 76 P: 52 LA: 115 QRS: 70 QRSD: 76 T: 85 QT: 378 QTc: 428 Interpretive Statements SINUS RHYTHM WITH SHORT LA INTERVAL POSSIBLE RIGHT VENTRICULAR CONDUCTION DELAY [RSR (QR) IN V1/V2] Compared to ECG 12/05/2022 19:04:05 Short LA interval now present Electronically Signed On 12-30-2022 21:27:59 CDT by Giorgi Justin M.D. [id number]
[2022-12-30 19:44] LABS: Basophils # 0.1 10^3/uL (0.0-0.1); Basophils % 0.9 %; Eosinophils # 0.1 10^3/uL (0.0-0.8); Eosinophils % 2.5 %; Hematocrit 42.1 % (36-47); Lymphocytes # 1.6 10^3/uL (0.8-4.8); Lymphocytes % 28.6 %; Mean Corpuscular HGB Conc 31.8 g/dL (30-55); Mean Corpuscular Hemoglobin 32.1 pg (27-33); Mean Corpuscular Volume 100.7 fl (85-98); Mean Platelet Volume 9.7 fL (7.4-10.4); Monocytes # 0.6 10^3/uL (0.2-0.9); Monocytes % 10.8 %; Neutrophils # 3.21 10^3/uL (1.8-7.7); Nucleated Red Blood Cells % 0 %; Platelet Count 309 10^3/cmm (157-399); Red Blood Count 4.18 10^6/uL (3.85-5.65); White Blood Count 5.63 10^3/uL (3.29-11.43)
[2022-12-30 19:58] VITALS: PULSE 84; RESP 18; O2SAT 99
[2022-12-30 20:16] LABS: Alanine Aminotransferase 16 U/L (0-33); Alcohol Level < 10 mg/dL (0-10); Alkaline Phosphatase 79 U/L (35-105); Anion Gap 15.3 (5-19); Aspartate Amino Transferase 27 U/L (0-32); Blood Urea Nitrogen 15 mg/dL (8-23); Calcium 9.7 mg/dL (8.5-10.5); Carbon Dioxide 33 mmol/L (22-29); Chloride 101 mmol/L (98-107); Globulin 2.7 g/dL (1.3-4.6); Glucose 98 mg/dL (65-115); NT Pro B Type Natriuretic Pept 37 pg/mL (0-125); Osmolality Calculated 299 mOsm/kg (285-295); Potassium 5.3 mmol/L (3.5-5.1); Sodium 144 mmol/L (136-145); Total Bilirubin 0.9 mg/dL (0.15-1.2); Total Protein 6.7 g/dL (6.6-8.7)
[2022-12-30 20:46] VITALS: RESP 18; O2SAT 100
[2022-12-30 22:00] VITALS: PULSE 89; RESP 22; O2SAT 89
[2022-12-30 22:25] LABS: Adenovirus Not Detected (NOT DETECT); Chlamydia Pneumoniae Not Detected (NOT DETECT); Coronavirus 229E,HKU1,NL63,OC4 Not Detected (NOT DETECT); Human Metapneumovirus Not Detected (NOT DETECT); Human Rhinovirus/Enterovirus Not Detected (NOT DETECT); Influenza A Not Detected (NOT DETECT); Influenza A H1 Not Detected (NOT DETECT); Influenza A H1-2009 Not Detected (NOT DETECT); Influenza A H3 Not Detected (NOT DETECT); Influenza B Not Detected (NOT DETECT); Mycoplasma Pneumoniae Not Detected (NOT DETECT); Parainfluenza Virus Type 1 Not Detected (NOT DETECT); Parainfluenza Virus Type 2 Not Detected (NOT DETECT); Parainfluenza Virus Type 3 Not Detected (NOT DETECT); Parainfluenza Virus Type 4 Not Detected (NOT DETECT); Respiratory Syncytial Virus A Not Detected (NOT DETECT); Respiratory Syncytial Virus B Not Detected (NOT DETECT); SARS-COV-2 Not Detected (NOT DETECT)
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
[2022-12-30 23:11] LABS: Amphetamines Screen Urine Negative (Negative); Barbiturates Screen Urine Negative (Negative); Benzodiazepines Screen Urine Negative (Negative); Cocaine Screen Urine Negative (Negative); Opiate Screen Urine Negative (Negative); PCP Screen Urine Negative (Negative); THC Screen Urine Negative (Negative)
--- NOTE | 2022-12-30 23:37 | XRR_ITS ---
PROCEDURE INFORMATION: Exam: XR Chest Exam date and time: 12/31/2022 12:11 AM Age: 72 years old Clinical indication: Shortness of breath; Patient HX: SOB. Screening for psych transfer. ; Additional info: Protocol/ SOB TECHNIQUE: Imaging protocol: Radiologic exam of the chest. Views: 1 view. COMPARISON: CR (CHEST, ) 12/05/2022 8:59 PM FINDINGS: Lungs: Unremarkable. No consolidation. Pleural spaces: Unremarkable. No pleural effusion. No pneumothorax. Heart/Mediastinum: Unremarkable. No cardiomegaly. Bones/joints: Unremarkable. XR/XR chest 1V portable [id number] IMPRESSION: No acute findings.
[2022-12-30 23:50] VITALS: PULSE 86; RESP 20; O2SAT 98
[2022-12-30] MEDS: ipratropium-albuterol 3 mL Neb INHALATION (23:52)
[2022-12-30 23:57] VITALS: PULSE 92
[2022-12-31 02:35] LABS: Thyroid Stimulating Hormone 7.66 uIU/mL (0.27-4.20); Vitamin B12 481 pg/mL (232-1245)
[2022-12-31 04:22] VITALS: BP 147/86; PULSE 88; RESP 20; O2SAT 97
[2022-12-31 04:27] LABS: Add Urine Microscopic? NO; Charge for UA Resulting for Rev
[2022-12-31 04:29] LABS: Bilirubin Urine Neg (Negative); Blood Urine Neg (Negative); Glucose Urine UA Norm (Normal); Ketones Urine Negative (Negative); Leukocyte Esterase Urine Negative (Negative); Nitrate Urine Negative (Negative); Protein Urine Neg (Negative); Urine Appearance Clear (CLEAR); Urine Color Yellow (Yellow); Urobilinogen Urine Neg (Negative); pH Urine 6.5 (5-7)
[2022-12-31 05:35] VITALS: PULSE 73; RESP 18; O2SAT 99
[2022-12-31] MEDS: ipratropium-albuterol 3 mL Neb INHALATION (05:35)
[2022-12-31 05:43] VITALS: PULSE 81
== END 2022-12-31 09:11 ==
PROVIDERS: Emergency Provider Family Medicine; PCP Family Medicine Adult Medicine
DX: R45.851 Suicidal ideations (principal); R45.850 Homicidal ideations; J44.9 Chronic obstructive pulmonary disease, unspecified; Z11.52 Encounter for screening for COVID-19; Z87.891 Personal history of nicotine dependence
CPT/HCPCS: 36415; 71045; 80053; 80306; 80307; 81003; 82607; 83880; 84443; 85025; 87635; 93005; 94640; 99285

== ENCOUNTER 2023-01-27 10:07 | Emergency (ER) | payer MEDICARE, SELFPAY ==
[2023-01-27] VITALS (8 sets, daily range): BP systolic 135–165; BP diastolic 82–97; PULSE 112–120; RESP 16–25; TEMP 37.1; O2SAT 93–100; BMI 26.4
--- NOTE | 2023-01-27 11:07 | XRR_ITS ---
PROCEDURE INFORMATION: Exam: XR Chest Exam date and time: 01/27/2023 11:29 AM Age: 72 years old Clinical indication: Shortness of breath; Additional info: SOB; Cough TECHNIQUE: Imaging protocol: Radiologic exam of the chest. Views: 1 view. COMPARISON: CR (CHEST, ) 12/31/2022 12:11 AM FINDINGS: Lungs: Unremarkable. No consolidation. Pleural spaces: Unremarkable. No pleural effusion. No pneumothorax. Heart/Mediastinum: Unremarkable. No cardiomegaly. Bones/joints: Unremarkable. XR/XR chest 1V portable [id number] IMPRESSION: No acute findings.
[2023-01-27] MEDS: methylPREDNISolone sod succ 125 MG in water for injection-sterile 2 ML 24 MG IVP (11:21)
[2023-01-27 11:26] LABS: Basophils # 0.1 10^3/uL (0.0-0.1); Basophils % 0.8 %; Eosinophils # 0.6 10^3/uL (0.0-0.8); Eosinophils % 5.2 %; Hematocrit 46.4 % (36-47); Lymphocytes # 0.9 10^3/uL (0.8-4.8); Lymphocytes % 8.5 %; Mean Corpuscular HGB Conc 32.8 g/dL (30-55); Mean Corpuscular Volume 97.7 fl (85-98); Mean Platelet Volume 11.2 fL (7.4-10.4); Monocytes # 0.6 10^3/uL (0.2-0.9); Monocytes % 5.1 %; Nucleated Red Blood Cells % 0 %; Platelet Count 339 10^3/cmm (157-399); Red Blood Count 4.75 10^6/uL (3.85-5.65); Red Cell Distribution Width 12.3 % (12.1-15.1); White Blood Count 10.99 10^3/uL (3.29-11.43)
[2023-01-27] MEDS: ipratropium-albuterol 3 mL Neb INHALATION ×2 (11:26→15:28)
[2023-01-27 11:30] LABS: Anion Gap 20.4 (5-19); Blood Urea Nitrogen 17 mg/dL (8-23); Calcium 9.9 mg/dL (8.5-10.5); Carbon Dioxide 29 mmol/L (22-29); Chloride 95 mmol/L (98-107); Glucose 117 mg/dL (65-115); Osmolality Calculated 295 mOsm/kg (285-295); Potassium 3.4 mmol/L (3.5-5.1); Sodium 141 mmol/L (136-145)
--- NOTE | 2023-01-27 14:52 | W.ED.SOB ---
HPI - SOB/Dyspnea General: Chief Complaint: Shortness of Breath/Dyspnea Stated Complaint: SOB Time Seen by Provider: 01/27/23 10:49 History of Present Illness: HPI Narrative: This patient is a 72-year-old white female who presents to the emergency department stating that she has not been eating or sleeping well for the past several days. She has some mild shortness of breath. She does have a history of COPD. She states she has had difficulty caring for herself. She states I am scared . She does have a history of anxiety and panic attacks. She is on 6 L of home O2 for her COPD. She states she had been on Klonopin 2 mg twice a day but is out of the medication. She states that in the past she was on fluoxetine 20 mg/day but was taken off of that for unknown reasons. She states that did help with her symptoms. Review of Systems General: Reports: 10 or more systems reviewed and unremarkable except in HPI and below Resp: Reports: dyspnea Psych: Reports: anxiety [facility] ED PFSH: Medical History (Updated 01/27/23 @ 14:42 by Castro Olivas MD) Acute exacerbation of chronic obstructive airways disease Acute on chronic respiratory failure with hypoxia and hypercapnia Acute respiratory distress Acute respiratory distress Anxiety disorder Asthma-COPD overlap syndrome Chronic respiratory failure with hypoxia COPD (chronic obstructive pulmonary disease) Delusional disorder Fibromyalgia syndrome Generalized anxiety disorder MDD (major depressive disorder) Opioid contract exists Panic anxiety syndrome Panic attacks Right lower lobe pneumonia Surgical History History of appendectomy History of cholecystectomy History of hysterectomy Hx of tonsillectomy Family History Other No pertinent family history Social History Smoking and tobacco/nicotine status: former use of tobacco/nicotine Quit status (tobacco/nicotine): has quit using Year quit tobacco: 2015 - 1PPD x 40 Years Alcohol intake: never Substance/Drug Use: never Lives independently: Yes Household members: none Current occupational status: disabled Pets and animals: Yes Pets & animals: dog(s) Do you think of yourself as: Straight/Heterosexual Current gender identity: Female Physical Exam Const: COMMON NORMALS: patient oriented x3 and no limitations GENERAL APPEARANCE: cooperative HENMT: COMMON NORMALS: normocephalic, atraumatic, Normal nasal mucous membranes and turbinates present, moist oral mucous membranes and oropharynx normal HEAD & SCALP: normal to inspection, normocephalic and atraumatic FACE & SINUS: normal facial exam NOSE: Normal nasal mucous membranes and turbinates present Eye: COMMON NORMALS: Equal, round and reactive pupils present, EOMs intact bilaterally and conjunctivae normal GENERAL EYE: appearance normal, both eyes and all related structures CONJUNCTIVA: Yes conjunctivae normal PUPIL: Yes Equal, round and reactive pupils present Neck/C-Spine: COMMON NORMALS: supple and no JVD Chest: COMMONS NORMALS: normal inspection of the chest Resp: COMMON NORMALS: normal respiratory effort AUSCULTATION: diminished lung sounds Cardio: COMMON NORMALS: no JVD, regular rate, regular rhythm, No gallops present (Cardio), No murmurs present (Cardio) and No rub (Cardio) RATE: regular rate RHYTHM: regular rhythm GI: COMMON NORMALS: Normal to inspection, nondistended, normoactive bowel sounds present, Soft to palpation and non-tender AUSCULTATION: Yes normoactive bowel sounds PALPATION: Yes Soft to palpation : COMMON NORMALS: Yes no CVA tenderness BLADDER/KIDNEY EXAM: Yes no CVA tenderness Back/Pelvis: COMMON NORMALS: no CVA tenderness and thoracic and lumbar spine normal to inspection Extremity: COMMON NORMALS: normal to inspection Neuro: COMMON NORMALS: patient oriented x3 and CN's II-XII intact bilaterally Psych: COMMON NORMALS: mental status grossly normal, Normal thought process present and cooperative MOOD & AFFECT: Yes anxious and Yes tearful THOUGHT PROCESS: Normal thought process present Skin: COMMON NORMALS: no rashes or lesions noted, turgor normal and no jaundice GENERAL SKIN EXAM: no rashes or lesions noted and turgor normal Course Vital Signs: Vital signs: Vital Signs Temperature 98.8 F 01/27/23 10:08 Pulse Rate 114 H 01/27/23 12:34 Respiratory Rate 16 01/27/23 12:34 Blood Pressure 142/82 01/27/23 12:34 Pulse Oximetry 98 01/27/23 12:34 Oxygen Delivery Me thod Nasal Cannula 01/27/23 12:34 Oxygen Flow Rate 6 01/27/23 12:34 MDM - SOB/Dyspnea Medical Decision Making CBC, BMP were normal. Chest x-ray did not reveal any infiltrates. Patient was given a DuoNeb treatment and 125 mg of Solu-Medrol IV for her COPD. Patient states that she needs some help. She states she is having difficulty taking care of herself at home. She has been unable to make it to her clinic appointments. I asked her if she wanted correction placement and she does not want correction placement. I talked to her about home health but she states that she has tried but she cannot find anyone to work . I did check to see if we have outreach and education social worker available today and we do not since its a Sunday. We can set up a referral for them to call her on Sunday which we did. Patient is okay with going home with a prescription for fluoxetine 20 mg/day and Klonopin. I also placed her on a prednisone burst and taper. Recommended she discuss her situation with the social media job titles on Sunday and follow-up with her primary care physician as soon as possible for recheck. She was discharged in stable condition. Lab Data 01/27/23 10:54 01/27/23 10:54 Labs/Radiology: Radiology Impressions Chest X-Ray 01/27/23 11:07 IMPRESSION: No acute findings. Laboratory Results WBC 10.99 10^3/uL (3.29-11.43) 01/27/23 10:54 RBC 4.75 10^6/uL (3.85-5.65) 01/27/23 10:54 Hgb 15.20 g/dL (11.27-16.99) 01/27/23 10:54 Hct 46.4 % (36-47) 01/27/23 10:54 MCV 97.7 fl (85-98) 01/27/23 10:54 MCH 32.0 pg (27-33) 01/27/23 10:54 MCHC 32.8 g/dL (30-55) 01/27/23 10:54 RDW 12.3 % (12.1-15.1) 01/27/23 10:54 Plt Count 339 10^3/cmm (157-399) 01/27/23 10:54 MPV 11.2 fL (7.4-10.4) H 01/27/23 10:54 Neut % (Auto) 80.0 % 01/27/23 10:54 Lymph % (Auto) 8.5 % 01/27/23 10:54 [place] % (Auto) 5.1 % 01/27/23 10:54 Eos % (Auto) 5.2 % 01/27/23 10:54 Baso % (Auto) 0.8 % 01/27/23 10:54 Neut # (Auto) 8.80 10^3/uL (1.8-7.7) H 01/27/23 10:54 Lymph # (Auto) 0.9 10^3/uL (0.8-4.8) 01/27/23 10:54 [place] # (Auto) 0.6 10^3/uL (0.2-0.9) 01/27/23 10:54 Eos # (Auto) 0.6 10^3/uL (0.0-0.8) 01/27/23 10:54 Baso # (Auto) 0.1 10^3/uL (0.0-0.1) 01/27/23 10:54 Nucleated RBC % (auto) 0 % 01/27/23 10:54 Nucleated RBCs # 0.0 /100WBC 01/27/23 10:54 Sodium 141 mmol/L (136-145) 01/27/23 10:54 Potassium 3.4 mmol/L (3.5-5.1) L 01/27/23 10:54 Chloride 95 mmol/L (98-107) L 01/27/23 10:54 Carbon Dioxide 29 mmol/L (22-29) 01/27/23 10:54 Anion Gap 20.4 (5-19) H 01/27/23 10:54 BUN 17 mg/dL (8-23) 01/27/23 10:54 Creatinine 0.6 mg/dL (0.5-0.9) 01/27/23 10:54 GFR Calculation Not Reportable 01/27/23 10:54 Glucose 117 mg/dL (65-115) H 01/27/23 10:54 Calculated Osmolality 295 mOsm/kg (285-295) 01/27/23 10:54 Calcium 9.9 mg/dL (8.5-10.5) 01/27/23 10:54 All radiology interpretation(s) finalized by discharge Discharge Plan Discharge Patient Disposition: Home Clinical Impression: COPD (chronic obstructive pulmonary disease), Anxiety Condition: Stable Prescriptions: New fluoxetine 20 mg capsule 20 mg PO DAILY Qty: 30 1RF clonazepam 2 mg tablet 2 mg PO BID Qty: 20 0RF prednisone 5 mg tablets,dose pack 5 mg PO DIRECTED Qty: 21 0RF Rx Instructions: see taper instructions No Action albuterol sulfate 90 mcg/actuation HFA aerosol inhaler 2 inh INHALATION Q4H PRN (Reason: shortness of breath or wheezing) Qty: 18 0RF Discharge Orders: Discharge ED (Routine); Ordered 01/27/23 Ordered By: Castro Olivas Referrals: Benjamin Gonzalez MD [Primary Care Provider] - Patient Instructions: COPD, Anxiety (ED) Coding Level of Care Code ED Bootmaker Hand for Ji Melgar
[2023-01-27] MEDS: LORazepam 1 mg Tablet PO (15:21)
== END 2023-01-27 15:59 | disposition home or self-care (01) ==
PROVIDERS: Emergency Provider Emergency Medicine; PCP Family Medicine Adult Medicine
DX: J44.9 Chronic obstructive pulmonary disease, unspecified (principal); F41.9 Anxiety disorder, unspecified; Z87.891 Personal history of nicotine dependence
CPT/HCPCS: 71045; 80048; 85025; 94640; 96374; 99284; J2930

== ENCOUNTER 2023-02-05 10:46 | Emergency (ER) | payer MEDICARE, SELFPAY ==
[2023-02-05 10:48] VITALS: BP 167/90; PULSE 105; RESP 16; TEMP 36.8; O2SAT 98; BMI 26.4
--- NOTE | 2023-02-05 10:53 | XR_ITS ---
WS: [id number] PORTABLE CHEST HISTORY: dyspnea/cough COMPARISON: 01/27/2023 Lungs are clear and well expanded. No pleural effusion or pneumothorax. Cardiac size: Normal. Mediastinum/Aorta: Normal mediastinum. No osseous abnormality seen. IMPRESSION: Unremarkable portable chest.
[2023-02-05 10:57] VITALS: BP 167/90; PULSE 102; RESP 19; O2SAT 22
--- NOTE | 2023-02-05 11:02 | W.ED.WEAKNES ---
HPI - Weakness General: Chief complaint: Weakness Stated complaint: Weakness Time Seen by Provider: 02/05/23 10:53 Source: patient Mode of arrival: EMS Limitations: no limitations History of Present Illness: Patient is a 72-year-old female with history of COPD who presents to the emergency department via EMS complaining of weakness onset 3 days. Patient states has been running a subjective fever at home, but has not recorded a temperature. She denies any sick contacts. She has history of COPD on 6 L chronically by mouth, but denies any exacerbation of her shortness of breath and states that she normally ambulates with a walker. She denies any nausea vomiting, abdominal pain, chest pain, peripheral edema, or any other symptoms. She lives at home by herself and states that she normally is able to care for herself. MD Complaint: generalized weakness Onset (ago): day(s) (3) Duration: constant Associated symptoms: Reports fever(s) (Subjective, no recorded temperatures); Denies chest pain, chills, dysuria, headache(s), nausea, syncope or vomiting Review of Systems Const: Reports: fever(s) (Subjective, no recorded temperatures), change in appetite and malaise; Denies: chills or night sweats Eyes: Denies: change in vision Card: Denies: chest pain, palpitations, irregular heart rhythm, edema, lightheadedness or syncope Resp: Denies: dyspnea, productive cough or wheezing GI: Denies: abdominal pain, nausea, vomiting or diarrhea : Denies: dysuria, urinary frequency or urinary urgency Musc: Denies: neck pain, back pain, extremity pain or extremity swelling Skin/Breast: Denies: rash Neuro: Denies: headache(s) PFS ED PFSH: Medical History Fibromyalgia syndrome MDD (major depressive disorder) Delusional disorder Generalized anxiety disorder Opioid contract exists Acute on chronic respiratory failure with hypoxia and hypercapnia Acute respiratory distress Right lower lobe pneumonia Acute respiratory distress Acute exacerbation of chronic obstructive airways disease Chronic respiratory failure with hypoxia Anxiety disorder Panic attacks Asthma-COPD overlap syndrome COPD (chronic obstructive pulmonary disease) Panic anxiety syndrome Surgical History History of appendectomy History of hysterectomy History of cholecystectomy Hx of tonsillectomy Family History Other No pertinent family history Social History Smoking and tobacco/nicotine status: former use of tobacco/nicotine Quit status (tobacco/nicotine): has quit using Year quit tobacco: 2015 - 1PPD x 40 Years Alcohol intake: never Substance/Drug Use: never Lives independently: Yes Household members: none Current occupational status: disabled Pets and animals: Yes Pets & animals: dog(s) Do you think of yourself as: Straight/Heterosexual Current gender identity: Female Physical Exam Const: COMMON NORMALS: no acute distress GENERAL APPEARANCE: cooperative and comfortable ORIENTATION/CONSCIOUSNESS: Yes awake, Yes oriented to person, Yes oriented to place and Yes oriented to time OTHER: On 6 L oxygen by mouth HENMT: COMMON NORMALS: normocephalic, atraumatic and hearing grossly normal bilaterally HEAD & SCALP: normocephalic and atraumatic MOUTH: Normal oral and palatal mucosa present Eye: COMMON NORMALS: Equal, round and reactive pupils present, EOMs intact bilaterally and conjunctivae normal CONJUNCTIVA: Yes conjunctivae normal PUPIL: Yes Equal, round and reactive pupils present Neck/C-Spine: COMMON NORMALS: no JVD Chest: COMMONS NORMALS: normal inspection of the chest and normal palpation of entire chest wall Resp: COMMON NORMALS: normal respiratory effort, No retractions and No use of accessory muscles EFFORT & INSPECTION: No tachypneic, No respiratory distress, No decreased respiratory effort, No labored and No grunting AUSCULTATION: no crackles, no rales and wheezes throughout Cardio: COMMON NORMALS: no JVD, regular rate, regular rhythm, No gallops present (Cardio), No clicks present (Cardio), No murmurs present (Cardio), No rub (Cardio) and Peripheral pulses 2+ throughout RATE: regular rate RHYTHM: regular rhythm PERIPHERAL PULSES: Peripheral pulses 2+ throughout OTHER: No peripheral edema GI: COMMON NORMALS: Soft to palpation and No hepatosplenomegaly present AUSCULTATION: Yes normoactive bowel sounds PALPATION: Yes Soft to palpation, No Tenderness to palpation present (GI), No Guarding due to palpation present (GI) and Yes No hepatosplenomegaly present Extremity: COMMON NORMALS: normal to inspection, capillary refill normal, no clubbing, cyanosis or edema, no calf tenderness and no pedal edema Neuro: SENSORIUM/ORIENTATION: Yes oriented to person, Yes oriented to place and Yes oriented to time Skin: COMMON NORMALS: no rashes or lesions noted GENERAL SKIN EXAM: no rashes or lesions noted Course Vital Signs: Vital signs: Vital Signs Temperature 98.2 F 02/05/23 10:48 Pulse Rate 102 H 02/05/23 10:57 Respiratory Rate 19 H 02/05/23 10:57 Blood Pressure 167/90 02/05/23 10:57 Pulse Oximetry 22 L 02/05/23 10:57 Oxygen Delivery Me thod Nasal Cannula 02/05/23 10:48 Oxygen Flow Rate 6 02/05/23 10:48 MDM - Weakness Medical Decision Making Offered admission for placement given her weakness and failure to thrive. We have gone through this with her before she does not want to leave her dog and not the nursing also allow her to keep her dogs that she refuses. Patient wants to be discharged home we will discharge home. Encourage patient to follow-up with primary care Medical Records I reviewed the patient's medical records. Lab Data I reviewed the patient's lab results. 02/05/23 11:12 02/05/23 11:12 Laboratory Results WBC 8.35 10^3/uL (3.29-11.43) 02/05/23 11:12 RBC 4.13 10^6/uL (3.85-5.65) 02/05/23 11:12 Hgb 13.30 g/dL (11.27-16.99) 02/05/23 11:12 Hct 39.8 % (36-47) 02/05/23 11:12 MCV 96.4 fl (85-98) 02/05/23 11:12 MCH 32.2 pg (27-33) 02/05/23 11:12 MCHC 33.4 g/dL (30-55) 02/05/23 11:12 RDW 12.3 % (12.1-15.1) 02/05/23 11:12 Plt Count 296 10^3/cmm (157-399) 02/05/23 11:12 MPV 10.0 fL (7.4-10.4) 02/05/23 11:12 Neut % (Auto) 73.0 % 02/05/23 11:12 Lymph % (Auto) 12.6 % 02/05/23 11:12 [place] % (Auto) 7.4 % 02/05/23 11:12 Eos % (Auto) 5.7 % 02/05/23 11:12 Baso % (Auto) 0.8 % 02/05/23 11:12 Neut # (Auto) 6.09 10^3/uL (1.8-7.7) 02/05/23 11:12 Lymph # (Auto) 1.1 10^3/uL (0.8-4.8) 02/05/23 11:12 [place] # (Auto) 0.6 10^3/uL (0.2-0.9) 02/05/23 11:12 Eos # (Auto) 0.5 10^3/uL (0.0-0.8) 02/05/23 11:12 Baso # (Auto) 0.1 10^3/uL (0.0-0.1) 02/05/23 11:12 Nucleated RBC % (auto) 0 % 02/05/23 11:12 Nucleated RBCs # 0.0 /100WBC 02/05/23 11:12 Sodium 137 mmol/L (136-145) 02/05/23 11:12 Potassium 3.8 mmol/L (3.5-5.1) 02/05/23 11:12 Chloride 97 mmol/L (98-107) L 02/05/23 11:12 Carbon Dioxide 30 mmol/L (22-29) H 02/05/23 11:12 Anion Gap 13.8 (5-19) 02/05/23 11:12 BUN 9 mg/dL (8-23) 02/05/23 11:12 Creatinine 0.6 mg/dL (0.5-0.9) 02/05/23 11:12 GFR Calculation Not Reportable 02/05/23 11:12 Glucose 143 mg/dL (65-115) H 02/05/23 11:12 Calculated Osmolality 285 mOsm/kg (285-295) 02/05/23 11:12 Calcium 9.4 mg/dL (8.5-10.5) 02/05/23 11:12 Total Bilirubin 0.5 mg/dL (0.15-1.2) 02/05/23 11:12 AST 18 U/L (0-32) 02/05/23 11:12 ALT 13 U/L (0-33) 02/05/23 11:12 Alkaline Phosphatase 84 U/L (35-105) 02/05/23 11:12 Total Protein 6.9 g/dL (6.6-8.7) 02/05/23 11:12 Albumin 4.2 g/dL (3.5-5.2) 02/05/23 11:12 Globulin 2.7 g/dL (1.3-4.6) 02/05/23 11:12 Urine Color Yellow (Yellow) 02/05/23 11:49 Urine Appearance Clear (CLEAR) 02/05/23 11:49 Urine pH 5 (5-7) 02/05/23 11:49 Ur Specific [place] 1.015 (1.005-1.030) 02/05/23 11:49 Urine Protein Neg (Negative) 02/05/23 11:49 Urine Glucose (UA) Norm (Normal) 02/05/23 11:49 Urine Ketones 1+ (Negative) H 02/05/23 11:49 Urine Blood Neg (Negative) 02/05/23 11:49 Urine Nitrate Negative (Negative) 02/05/23 11:49 Urine Bilirubin Neg (Negative) 02/05/23 11:49 Urine Urobilinogen Norm mg/dL (Negative) 02/05/23 11:49 Ur Leukocyte Esterase Negative (Negative) 02/05/23 11:49 All radiology interpretation(s) finalized by discharge Discharge Plan Discharge Patient Disposition: Home Clinical Impression: Weakness, Chronic respiratory failure with hypoxia, Fibromyalgia syndrome, COPD (chronic obstructive pulmonary disease) Condition: Stable Prescriptions: No Action albuterol sulfate 90 mcg/actuation HFA aerosol inhaler 2 inh INHALATION Q4H PRN (Reason: shortness of breath or wheezing) Qty: 18 0RF fluoxetine 20 mg capsule 20 mg PO DAILY Qty: 30 1RF Rx Instructions: rx filled and picked up [facility] wp 01/27/23 30d/s clonazepam 2 mg tablet 2 mg PO BID Qty: 20 0RF Rx Instructions: rx filled and picked up [facility] wp 01/27/23 10d/s citalopram 10 mg tablet 10 mg PO DAILY Tylenol Ex Str Rapid Release 500 mg Tablet 1,000 mg PO Q6H PRN (Reason: Pain) divalproex 125 mg capsule, delayed rel sprinkle 250 mg PO TID methylprednisolone [Medrol (Harsha)] 4 mg tablets,dose pack See Rx Instructions .ROUTE .COMPLEX Qty: 21 0RF Rx Instructions: orally per package directions albuterol sulfate 90 mcg/actuation HFA aerosol inhaler 2 inh INHALATION Q4H PRN (Reason: shortness of breath or wheezing) Qty: 18 0RF Discharge Orders: Discharge ED (Routine); Ordered 02/05/23 Ordered By: Alex Romero Referrals: Benjamin Gonzalez MD [Physician] - Discharge Diet: Usual diet Discharge Activity: Resume usual activity Patient Instructions: Opioid Safety, Pain Management Activity Restrictions/Additional Instructions: Thank you for choosing [facility] for your healthcare needs today. Please realize this is an emergency room and that we are providing you with a medical screening exam and this may not be complete and all inclusive of all the testing and or work up that you may need to determine your ailment or severity of your illness. It is very important that you follow up as instructed or that you return to the Emergency Department should you have concerns or if your condition changes or worsens in any way. Continue previously prescribed medications and oxygen supplement. Coding Level of Care Code ED Encoding Clerk for Ji Melgar
[2023-02-05 11:17] LABS: Basophils # 0.1 10^3/uL (0.0-0.1); Basophils % 0.8 %; Eosinophils # 0.5 10^3/uL (0.0-0.8); Eosinophils % 5.7 %; Hematocrit 39.8 % (36-47); Lymphocytes # 1.1 10^3/uL (0.8-4.8); Lymphocytes % 12.6 %; Mean Corpuscular HGB Conc 33.4 g/dL (30-55); Mean Corpuscular Hemoglobin 32.2 pg (27-33); Mean Corpuscular Volume 96.4 fl (85-98); Monocytes # 0.6 10^3/uL (0.2-0.9); Monocytes % 7.4 %; Neutrophils # 6.09 10^3/uL (1.8-7.7); Nucleated Red Blood Cells % 0 %; Platelet Count 296 10^3/cmm (157-399); Red Blood Count 4.13 10^6/uL (3.85-5.65); Red Cell Distribution Width 12.3 % (12.1-15.1); White Blood Count 8.35 10^3/uL (3.29-11.43)
[2023-02-05 11:38] LABS: Alanine Aminotransferase 13 U/L (0-33); Albumin Level 4.2 g/dL (3.5-5.2); Alkaline Phosphatase 84 U/L (35-105); Anion Gap 13.8 (5-19); Aspartate Amino Transferase 18 U/L (0-32); Blood Urea Nitrogen 9 mg/dL (8-23); Calcium 9.4 mg/dL (8.5-10.5); Carbon Dioxide 30 mmol/L (22-29); Chloride 97 mmol/L (98-107); Globulin 2.7 g/dL (1.3-4.6); Glucose 143 mg/dL (65-115); Osmolality Calculated 285 mOsm/kg (285-295); Potassium 3.8 mmol/L (3.5-5.1); Sodium 137 mmol/L (136-145); Total Bilirubin 0.5 mg/dL (0.15-1.2); Total Protein 6.9 g/dL (6.6-8.7)
--- NOTE | 2023-02-05 11:45 | PC.PHAR ---
pt states she takes care of her own medications-pt states she hasnt had her clonazepam in a long time-pt states she doesnt think she picked up from [facility] wp states the pt picked clonazepam 2mg bid 01/27/23 10d/s,prozac 20mg daily 01/27/23 30d/s,prednisone 5mg dose pack taper instructions 01/27/23 6d/s-pt states she stop taking celexa 10mg daily on sun 02/04/23 rx filled 02/01/23 30d/s-pt states she doesnt take divalproex sprinkles 125mg two caps 250mg tid filled 01/08/23 30d/s-notes are made in the pharmacy comments
[2023-02-05 11:53] LABS: Add Urine Microscopic? NO; Charge for UA Resulting for Rev
[2023-02-05 12:02] LABS: Bilirubin Urine Neg (Negative); Blood Urine Neg (Negative); Glucose Urine UA Norm (Normal); Ketones Urine 1+ (Negative); Leukocyte Esterase Urine Negative (Negative); Nitrate Urine Negative (Negative); Protein Urine Neg (Negative); Specific Gravity, Urine 1.015 (1.005-1.030); Urine Appearance Clear (CLEAR); Urine Color Yellow (Yellow); Urobilinogen Urine Norm (Negative); pH Urine 5 (5-7)
== END 2023-02-05 14:12 | disposition home or self-care (01) ==
PROVIDERS: Emergency Provider Family Medicine; PCP Family Medicine
DX: R53.1 Weakness (principal); J96.11 Chronic respiratory failure with hypoxia; M79.7 Fibromyalgia; J44.9 Chronic obstructive pulmonary disease, unspecified; Z87.891 Personal history of nicotine dependence
CPT/HCPCS: 71045; 80053; 81003; 85025; 99284

== ENCOUNTER 2023-02-13 07:15 | Emergency (ER) | payer MEDICARE, SELFPAY ==
--- NOTE | 2023-02-13 | XRR_ITS ---
PROCEDURE INFORMATION: Exam: XR Chest Exam date and time: 02/13/2023 7:31 AM Age: 72 years old Clinical indication: Cough TECHNIQUE: Imaging protocol: Radiologic exam of the chest. Views: 1 view. COMPARISON: CR XR chest 1V portable [id number] 02/05/2023 10:59 AM FINDINGS: Lungs: Unremarkable. No consolidation. Pleural spaces: Unremarkable. No pleural effusion. No pneumothorax. Heart/Mediastinum: Unremarkable. No cardiomegaly. Bones/joints: Unremarkable. XR/XR chest 1V [id number] IMPRESSION: No acute findings.
--- NOTE | 2023-02-13 07:22 | ECG_ITS ---
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 Measurements Intervals [place] Rate: 91 P: 87 TN: 138 QRS: 83 QRSD: 78 T: 87 QT: 363 QTc: 447 Interpretive Statements SINUS RHYTHM WITH OCCASIONAL SUPRAVENTRICULAR PREMATURE COMPLEXES POSSIBLE RIGHT VENTRICULAR CONDUCTION DELAY [RSR (QR) IN V1/V2] Compared to ECG 12/30/2022 20:35:45 Short TN interval no longer present Electronically Signed On 02-13-2023 17:16:46 [employer]MOD[employer] CUST[employer]ER SERVICE by Xenia Hernandez M.D. [id number]
[2023-02-13 07:45] VITALS: PULSE 82; RESP 18; O2SAT 98
[2023-02-13] MEDS: ipratropium-albuterol 3 mL Neb INHALATION (07:45)
--- NOTE | 2023-02-13 09:21 | ED_ITS ---
HPI - SOB/Dyspnea 2 General: Stated Complaint: SOB Time Seen by Provider: 02/13/23 09:14 Source: patient Mode of arrival: ambulatory History of Present Illness: HPI Narrative: 72-year-old female presents emergency ro om with complaints of shortness of breath. She is chronically on oxygen. Patient lives alone essentially is failure to thrive. She declines most offers for help usually after shortly after arriving here wants to go home again. She has a dog at home when she refuses to give up so she has been refusing to go to the residential. She denies any fever sweats chills or chest pain. MD elicited complaint: shortness of breath and cough Pertinent past history: COPD Associated symptoms: Reports cough and other; Deny abdominal pain, chest congestion, chest pain, diaphoresis, dizziness, extremity pain, fever(s), hemoptysis, lightheadedness, myalgias, nausea, orthopnea, palpitations, paresthesias, polydipsia, polyuria, rash, sense of impending doom, syncope or vomiting Treatment prior to arrival: oxygen, bronchodilator and other (Solu-Medrol) Review of Systems 2 Const: Denies: fever(s) or diaphoresis Card: Denies: chest pain, palpitations, lightheadedness, syncope or orthopnea Resp: Denies: hemoptysis or chest congestion GI: Denies: abdominal pain, nausea or vomiting : Denies: dysuria, urinary frequency or urinary urgency Musc: Denies: extremity pain Skin/Breast: Denies: rash Neuro: Denies: dizziness Endo: Denies: polyuria or polydipsia PFSH ED 2 PFSH: Medical History Fibromyalgia syndrome MDD (major depressive disorder) Delusional disorder Generalized anxiety disorder Opioid contract exists Acute on chronic respiratory failure with hypoxia and hypercapnia Acute respiratory distress Right lower lobe pneumonia Acute respiratory distress Acute exacerbation of chronic obstructive airways disease Chronic respiratory failure with hypoxia Anxiety disorder Panic attacks Asthma-COPD overlap syndrome COPD (chronic obstructive pulmonary disease) Panic anxiety syndrome Surgical History History of appendectomy History of hysterectomy History of cholecystectomy Hx of tonsillectomy Family History Other No pertinent family history Social History Smoking and tobacco/nicotine status: former use of tobacco/nicotine Quit status (tobacco/nicotine): has quit using Year quit tobacco: 2015 - 1PPD x 40 Years Alcohol intake: never Substance/Drug Use: never Lives independently: Yes Household members: none Current occupational status: disabled Pets and animals: Yes Pets & animals: dog(s) Do you think of yourself as: Straight/Heterosexual Current gender identity: Female Physical Exam 2 Const: GENERAL APPEARANCE: cooperative and comfortable O RIENTATION/CONSCIOUSNESS: Yes awake, Yes oriented to person, Yes oriented to place and Yes oriented to time HENMT: COMMON NORMALS: normocephalic, atraumatic and hearing grossly normal bilaterally HEAD & SCALP: normocephalic and atraumatic Resp: COMMON NORMALS: No retractions and No use of accessory muscles A USCULTATION: wheezes Cardio: COMMON NORMALS: regular rate, regular rhythm and No murmurs present (Cardio) RATE: regular rate RHYTHM: regular rhythm GI: COMMON NORMALS: Soft to palpation and No hepatosplenomegaly present A USCULTATION: Yes normoactive bowel sounds PALPATION: Yes Soft to palpation, No Tenderness to palpation present (GI), No Guarding due to palpation present (GI) and Yes No hepatosplenomegaly present Extremity: COMMON NORMALS: normal to inspection, capillary refill normal, no clubbing, cyanosis or edema, no calf tenderness and no pedal edema Neuro: SENSORIUM/ORIENTATION: Yes oriented to person, Yes oriented to place and Yes oriented to time Skin: COMMON NORMALS: no rashes or lesions noted GENERAL SKIN EXAM: no rashes or lesions noted Course 2 Vital Signs: Vital signs: Vital Signs Pulse Rate 82 02/13/23 07:45 Respiratory Rate 18 02/13/23 07:45 Pulse Oximetry 98 02/13/23 07:45 Oxygen Delivery Me thod Nasal Cannula 02/13/23 07:45 Oxygen Flow Rate 2 02/13/23 07:45 MDM - SOB/Dyspnea Medical Decision Making Reviewed findings with the patient. Recommend admission for failure to thrive exacerbation COPD. She does not wish to stay. Her vital signs have improved she is chronically on oxygen at home. She is feeling better we will discharge patient home she can return at any point to reevaluate. Medical Records I reviewed the patient's medical records. Lab Data I reviewed the patient's lab results. 02/13/23 07:33 02/13/23 07:33 Labs/Radiology: Radiology Impressions Chest X-Ray 02/13/23 00:00 IMPRESSION: No acute findings. Laboratory Results WBC 8.47 10^3/uL (3.29-11.43) 02/13/23 07:33 RBC 3.96 10^6/uL (3.85-5.65) 02/13/23 07:33 Hgb 12.80 g/dL (11.27-16.99) 02/13/23 07:33 Hct 40.7 % (36-47) 02/13/23 07:33 MCV 102.8 fl (85-98) H 02/13/23 07:33 MCH 32.3 pg (27-33) 02/13/23 07:33 MCHC 31.4 g/dL (30-55) 02/13/23 07:33 RDW 12.6 % (12.1-15.1) 02/13/23 07:33 Plt Count 314 10^3/cmm (157-399) 02/13/23 07:33 MPV 10.3 fL (7.4-10.4) 02/13/23 07:33 Neut % (Auto) 51.1 % 02/13/23 07:33 Lymph % (Auto) 23.8 % 02/13/23 07:33 [place] % (Auto) 12.9 % 02/13/23 07:33 Eos % (Auto) 11.3 % 02/13/23 07:33 Baso % (Auto) 0.7 % 02/13/23 07:33 Neut # (Auto) 4.32 10^3/uL (1.8-7.7) 02/13/23 07:33 Lymph # (Auto) 2.0 10^3/uL (0.8-4.8) 02/13/23 07:33 Lee # (Auto) 1.1 10^3/uL (0.2-0.9) H 02/13/23 07:33 Eos # (Auto) 1.0 10^3/uL (0.0-0.8) H 02/13/23 07:33 Baso # (Auto) 0.1 10^3/uL (0.0-0.1) 02/13/23 07:33 Nucleated RBC % (auto) 0 % 02/13/23 07:33 Nucleated RBCs # 0.0 /100WBC 02/13/23 07:33 Sodium 141 mmol/L (136-145) 02/13/23 07:33 Potassium 3.4 mmol/L (3.5-5.1) L 02/13/23 07:33 Chloride 100 mmol/L (98-107) 02/13/23 07:33 Carbon Dioxide 33 mmol/L (22-29) H 02/13/23 07:33 Anion Gap 11.4 (5-19) 02/13/23 07:33 BUN 15 mg/dL (8-23) 02/13/23 07:33 Creatinine 0.5 mg/dL (0.5-0.9) 02/13/23 07:33 GFR Calculation Not Reportable 02/13/23 07:33 Glucose 94 mg/dL (65-115) 02/13/23 07:33 Calculated Osmolality 293 mOsm/kg (285-295) 02/13/23 07:33 Calcium 9.3 mg/dL (8.5-10.5) 02/13/23 07:33 Total Bilirubin 0.3 mg/dL (0.15-1.2) 02/13/23 07:33 AST 14 U/L (0-32) 02/13/23 07:33 ALT 9 U/L (0-33) 02/13/23 07:33 Alkaline Phosphatase 86 U/L (35-105) 02/13/23 07:33 Total Protein 6.1 g/dL (6.6-8.7) L 02/13/23 07:33 Albumin 3.9 g/dL (3.5-5.2) 02/13/23 07:33 Globulin 2.2 g/dL (1.3-4.6) 02/13/23 07:33 All radiology interpretation(s) finalized by discharge Discharge Plan Discharge Patient Disposition: Home Clinical Impression: COPD (chronic obstructive pulmonary disease), Weakness, Generalized anxiety disorder, MDD (major depressive disorder), Adult failure to thrive Condition: Stable Prescriptions: New albuterol sulfate 90 mcg/actuation HFA aerosol inhaler 2 inh INHALATION Q4H PRN (Reason: shortness of breath or wheezing) Qty: 18 0RF Discontinued prednisone 5 mg tablets,dose pack See Rx Instructions .ROUTE .COMPLEX Rx Instructions: as directed on taper instructions given to pt rx filled and picked up [facility] wp 01/27/23 6d/s No Action fluoxetine 20 mg capsule 20 mg PO DAILY Qty: 30 1RF Rx Instructions: rx filled and picked up [facility] wp 01/27/23 30d/s clonazepam 2 mg tablet 2 mg PO BID Qty: 20 0RF Rx Instructions: rx filled and picked up [facility] wp 01/27/23 10d/s citalopram 10 mg tablet 10 mg PO DAILY divalproex 125 mg capsule, delayed rel sprinkle 250 mg PO TID ipratropium-albuterol 0.5 mg-3 mg(2.5 mg base)/3 mL solution for nebulization 3 ml inhalation Q4H PRN (Reason: shortness of breath or wheezing) Qty: 90 0RF Medrol (Harsha) 4 mg tablets,dose pack See Rx Instructions .ROUTE .COMPLEX Qty: 21 0RF Rx Instructions: orally per package directions Discharge Orders: Discharge ED (Routine); Ordered 02/13/23 Ordered By: Alex Romero Referrals: Kalen Bowser MD [Primary Care Provider] - Patient Instructions: Opioid Safety, Pain Management Activity Restrictions/Additional Instructions: Thank you for choosing [facility] for your healthcare needs today. Please realize this is an emergency room and that we are providing you with a medical screening exam and this may not be complete and all inclusive of all the testing and or work up that you may need to determine your ailment or severity of your illness. It is very important that you follow up as instructed or that you return to the Emergency Department should you have concerns or if your condition changes or worsens in any way. You were seen today for complaints of shortness of breath. Your oxygen saturation was normal on your usual 2 L. Chest x-ray did not show anything acute recommend a steroid taper continue to use your albuterol nebulizers and inhalers as needed. Strongly recommend you consider placement in the residential we offered to assist you with this but you have declined because she wanted to be able to stay with your dog. Follow-up with your primary care doctor within the next week. Coding Level of Care Code ED Cyber Reverse Engineer for Ji Melgar
[2023-02-13 14:21] LABS: Hematocrit 40.7 % (36-47); Mean Corpuscular HGB Conc 31.4 g/dL (30-55); Mean Corpuscular Hemoglobin 32.3 pg (27-33); Mean Corpuscular Volume 102.8 fl (85-98); Mean Platelet Volume 10.3 fL (7.4-10.4); Platelet Count 314 10^3/cmm (157-399); Red Blood Count 3.96 10^6/uL (3.85-5.65); Red Cell Distribution Width 12.6 % (12.1-15.1); White Blood Count 8.47 10^3/uL (3.29-11.43)
[2023-02-13 14:22] LABS: Basophils # 0.1 10^3/uL (0.0-0.1); Basophils % 0.7 %; Eosinophils % 11.3 %; Lymphocytes % 23.8 %; Monocytes # 1.1 10^3/uL (0.2-0.9); Monocytes % 12.9 %; Neutrophils # 4.32 10^3/uL (1.8-7.7); Neutrophils % 51.1 %
[2023-02-13 14:23] LABS: Anion Gap 11.4 (5-19); Carbon Dioxide 33 mmol/L (22-29); Chloride 100 mmol/L (98-107); Nucleated Red Blood Cells % 0 %; Potassium 3.4 mmol/L (3.5-5.1); Sodium 141 mmol/L (136-145)
[2023-02-13 14:24] LABS: Alanine Aminotransferase 9 U/L (0-33); Albumin Level 3.9 g/dL (3.5-5.2); Alkaline Phosphatase 86 U/L (35-105); Aspartate Amino Transferase 14 U/L (0-32); Blood Urea Nitrogen 15 mg/dL (8-23); Calcium 9.3 mg/dL (8.5-10.5); Globulin 2.2 g/dL (1.3-4.6); Glucose 94 mg/dL (65-115); Osmolality Calculated 293 mOsm/kg (285-295); Total Bilirubin 0.3 mg/dL (0.15-1.2); Total Protein 6.1 g/dL (6.6-8.7)
== END 2023-02-13 09:22 | disposition home or self-care (01) ==
PROVIDERS: Emergency Provider Family Medicine; PCP Family Medicine
DX: J44.9 Chronic obstructive pulmonary disease, unspecified (principal); R53.1 Weakness; F41.1 Generalized anxiety disorder; F32.9 Major depressive disorder, single episode, unspecified; R62.7 Adult failure to thrive; Z87.891 Personal history of nicotine dependence
CPT/HCPCS: 71045; 80053; 85025; 93005; 94640; 99285

== ENCOUNTER 2023-02-18 13:53 | Emergency (ER) | payer MEDICARE, SELFPAY ==
[2023-02-18 13:54] VITALS: BP 167/85; PULSE 124; RESP 20; TEMP 36.8; O2SAT 95; BMI 24.4
--- NOTE | 2023-02-18 13:58 | W.ED.GENADLT ---
HPI - General Adult General: Chief complaint: Shortness of Breath/Dyspnea Stated complaint: SOB Time Seen by Provider: 02/18/23 13:55 Source: patient Mode of arrival: EMS History of Present Illness: 72-year-old female presents emergency room via EMS with complaint of shortness of breath. Patient presents frequently via EMS unfortunately she lives at home alone has a very difficult time managing her ADLs and medicines etc. She made several attempts to get her to go to the assisted. She has been hospitalized on a Few occasions but is refused assisted placement. She does not want to give up her dog. Today she has increasing shortness of breath she denies chest pain. She did receive albuterol treatment in route. She had been requiring 6 L by nasal cannula to maintain her sat at 93 they are able to titrate her down to 3 L/min 97% after the albuterol treatment she denies chest pain. Onset (ago): day(s) (1) Severity: moderate Associated symptoms: Reports dyspnea; Deny chest pain, confusion, cough, diaphoresis, decreased appetite, fevers/chills, headache(s), malaise, nausea, rash, palpitations, seizures, short of breath, syncope, vomiting or weakness Review of Systems Const: Denies: fever(s), chills, malaise or diaphoresis Card: Denies: chest pain, palpitations, irregular heart rhythm, edema or syncope Resp: Reports: dyspnea, non-productive cough and wheezing GI: Denies: abdominal pain, nausea or vomiting : Denies: dysuria, urinary frequency or urinary urgency Musc: Denies: neck pain or back pain Skin/Breast: Denies: rash Neuro: Denies: headache(s) or confusion PFSH ED PFSH: Medical History Fibromyalgia syndrome MDD (major depressive disorder) Delusional disorder Generalized anxiety disorder Opioid contract exists Acute on chronic respiratory failure with hypoxia and hypercapnia Acute respiratory distress Right lower lobe pneumonia Acute respiratory distress Acute exacerbation of chronic obstructive airways disease Chronic respiratory failure with hypoxia Anxiety disorder Panic attacks Asthma-COPD overlap syndrome COPD (chronic obstructive pulmonary disease) Panic anxiety syndrome Surgical History History of appendectomy History of hysterectomy History of cholecystectomy Hx of tonsillectomy Family History Other No pertinent family history Social History Smoking and tobacco/nicotine status: former use of tobacco/nicotine Quit status (tobacco/nicotine): has quit using Year quit tobacco: 2015 - 1PPD x 40 Years Alcohol intake: never Substance/Drug Use: never Lives independently: Yes Household members: none Current occupational status: disabled Pets and animals: Yes Pets & animals: dog(s) Do you think of yourself as: Straight/Heterosexual Current gender identity: Female Physical Exam Const: COMMON NORMALS: no acute distress GENERAL APPEARANCE: cooperative and comfortable ORIENTATION/CONSCIOUSNESS: Yes awake, Yes oriented to person, Yes oriented to place and Yes oriented to time HENMT: COMMON NORMALS: normocephalic, atraumatic and hearing grossly normal bilaterally HEAD & SCALP: normocephalic and atraumatic Resp: COMMON NORMALS: normal respiratory effort, No retractions, No use of accessory muscles and clear to auscultation bilaterally AUSCULTATION: clear to auscultation bilaterally Cardio: COMMON NORMALS: regular rate, regular rhythm and No murmurs present (Cardio) RATE: regular rate RHYTHM: regular rhythm GI: COMMON NORMALS: Soft to palpation and No hepatosplenomegaly present AUSCULTATION: Yes normoactive bowel sounds PALPATION: Yes Soft to palpation, No Tenderness to palpation present (GI), No Guarding due to palpation present (GI) and Yes No hepatosplenomegaly present Extremity: COMMON NORMALS: normal to inspection, capillary refill normal, no clubbing, cyanosis or edema, no calf tenderness and no pedal edema Neuro: SENSORIUM/ORIENTATION: Yes oriented to person, Yes oriented to place and Yes oriented to time Skin: COMMON NORMALS: no rashes or lesions noted GENERAL SKIN EXAM: no rashes or lesions noted Course Vital Signs: Vital signs: Vital Signs Temperature 98.2 F 02/18/23 13:54 Pulse Rate 105 H 02/18/23 14:55 Respiratory Rate 22 H 02/18/23 14:48 Blood Pressure 167/85 02/18/23 14:09 Pulse Oximetry 93 02/18/23 14:48 Oxygen Delivery Me thod Nasal Cannula 02/18/23 14:48 Oxygen Flow Rate 2 02/18/23 14:48 MDM - General Adult Medical Decision Making Initially patient arrived tachycardic and believes it was from combination of anxiety and the albuterol treatment she received. Heart rate improved. Her breathing improved as she is given steroids and another albuterol/ipratropium bromide treatment here. Chest x-ray is unremarkable. She still does not wish to go to the assisted. She prefers to go home manage herself discharged home prednisone taper start tomorrow and also albuterol ipratropium bromide nebs to use every 4 hours while awake as needed. No sign of infection at this time do not recommend antibiotics. Medical Records I reviewed the patient's medical records. Lab Data I reviewed the patient's lab results. 02/18/23 14:37 02/18/23 14:37 Radiology Impressions Chest X-Ray 02/18/23 14:05 IMPRESSION: No acute findings. Laboratory Results WBC 7.53 10^3/uL (3.29-11.43) 02/18/23 14:37 RBC 4.38 10^6/uL (3.85-5.65) 02/18/23 14:37 Hgb 14.10 g/dL (11.27-16.99) 02/18/23 14:37 Hct 43.0 % (36-47) 02/18/23 14:37 MCV 98.2 fl (85-98) H 02/18/23 14:37 MCH 32.2 pg (27-33) 02/18/23 14:37 MCHC 32.8 g/dL (30-55) 02/18/23 14:37 RDW 12.5 % (12.1-15.1) 02/18/23 14:37 Plt Count 315 10^3/cmm (157-399) 02/18/23 14:37 MPV 10.1 fL (7.4-10.4) 02/18/23 14:37 Neut % (Auto) 62.6 % 02/18/23 14:37 Lymph % (Auto) 15.1 % 02/18/23 14:37 [place] % (Auto) 10.0 % 02/18/23 14:37 Eos % (Auto) 11.2 % 02/18/23 14:37 Baso % (Auto) 0.7 % 02/18/23 14:37 Neut # (Auto) 4.72 10^3/uL (1.8-7.7) 02/18/23 14:37 Lymph # (Auto) 1.1 10^3/uL (0.8-4.8) 02/18/23 14:37 [place] # (Auto) 0.8 10^3/uL (0.2-0.9) 02/18/23 14:37 Eos # (Auto) 0.8 10^3/uL (0.0-0.8) 02/18/23 14:37 Baso # (Auto) 0.1 10^3/uL (0.0-0.1) 02/18/23 14:37 Nucleated RBC % (auto) 0 % 02/18/23 14:37 Nucleated RBCs # 0.0 /100WBC 02/18/23 14:37 Urine Color Yellow (Yellow) 02/18/23 14:20 Urine Appearance Clear (CLEAR) 02/18/23 14:20 Urine pH 6 (5-7) 02/18/23 14:20 Ur Specific [place] 1.020 (1.005-1.030) 02/18/23 14:20 Urine Protein Neg (Negative) 02/18/23 14:20 Urine Glucose (UA) Norm (Normal) 02/18/23 14:20 Urine Ketones Negative (Negative) 02/18/23 14:20 Urine Blood Neg (Negative) 02/18/23 14:20 Urine Nitrate Negative (Negative) 02/18/23 14:20 Urine Bilirubin Neg (Negative) 02/18/23 14:20 Urine Urobilinogen 1 mg/dL (Negative) H 02/18/23 14:20 Ur Leukocyte Esterase Trace (Negative) H 02/18/23 14:20 Urine RBC None /hpf (0-2) 02/18/23 14:20 Urine WBC 5-10 /hpf (0-5) H 02/18/23 14:20 Ur Squamous Epith Cells 0-4 /hpf (0-5) H 02/18/23 14:20 Amorphous Sediment Not Reportable 02/18/23 14:20 Urine Bacteria Trace /hpf (NONE) 02/18/23 14:20 Urine Mucus 1+ /hpf 02/18/23 14:20 All radiology interpretation(s) finalized by discharge Discharge Plan Discharge Patient Disposition: Home Clinical Impression: Acute exacerbation of chronic obstructive airways disease Condition: Stable Prescriptions: New ipratropium-albuterol 0.5 mg-3 mg(2.5 mg base)/3 mL solution for nebulization 3 ml inhalation Q4H PRN (Reason: shortness of breath or wheezing) Qty: 90 0RF Medrol (Harsha) 4 mg tablets,dose pack See Rx Instructions .ROUTE .COMPLEX Qty: 21 0RF Rx Instructions: orally per package directions Discontinued methylprednisolone [Medrol (Harsha)] 4 mg tablets,dose pack See Rx Instructions .ROUTE .COMPLEX Qty: 21 0RF Rx Instructions: orally per package directions No Action fluoxetine 20 mg capsule 20 mg PO DAILY Qty: 30 1RF Rx Instructions: rx filled and picked up [facility] wp 01/27/23 30d/s clonazepam 2 mg tablet 2 mg PO BID Qty: 20 0RF Rx Instructions: rx filled and picked up [facility] wp 01/27/23 10d/s citalopram 10 mg tablet 10 mg PO DAILY divalproex 125 mg capsule, delayed rel sprinkle 250 mg PO TID albuterol sulfate 90 mcg/actuation HFA aerosol inhaler 2 inh INHALATION Q4H PRN (Reason: shortness of breath or wheezing) Qty: 18 0RF Discharge Orders: Discharge ED (Routine); Ordered 02/18/23 Ordered By: Alex Romero Referrals: Kalen Bowser MD [Primary Care Provider] - Discharge Diet: Usual diet Discharge Activity: Increase activity as tolerated Patient Instructions: Opioid Safety, Pain Management Activity Restrictions/Additional Instructions: Thank you for choosing [facility] for your healthcare needs today. Please realize this is an emergency room and that we are providing you with a medical screening exam and this may not be complete and all inclusive of all the testing and or work up that you may need to determine your ailment or severity of your illness. It is very important that you follow up as instructed or that you return to the Emergency Department should you have concerns or if your condition changes or worsens in any way. You were seen today for difficulty breathing improved after treatment with steroids and nebulizer. Use your nebulizer at home you are given a prescription for albuterol ipratropium bromide to use nebulizer every 4 hours as needed. Start prednisone taper tomorrow. Coding Level of Care Code ED Office Correspondent for Ji Melgar
--- NOTE | 2023-02-18 14:05 | XRR_ITS ---
PROCEDURE INFORMATION: Exam: XR Chest Exam date and time: 02/18/2023 2:22 PM Age: 72 years old Clinical indication: Shortness of breath; Additional info: Dyspnea/cough TECHNIQUE: Imaging protocol: Radiologic exam of the chest. Views: 1 view. COMPARISON: CR XR chest 1V [id number] 02/13/2023 7:31 AM FINDINGS: Lungs: No consolidation. Pleural spaces: No pleural effusion. No pneumothorax. Heart/Mediastinum: No cardiomegaly. Bones/joints: No acute findings. XR/XR chest 1V portable [id number] IMPRESSION: No acute findings.
--- NOTE | 2023-02-18 14:06 | ECG_ITS ---
[facility] Test Date: 2023-02-18 Pat Name: Socorro Montes De Oca Department: Room: Gender: Female Signals Collector/Analyst: : 1950 Requested By: Alex Scales Order Number: [id number] Octavio MD: Marcy Davalos M.D. Measurements Intervals [place] Rate: 123 P: 82 AK: 112 QRS: 30 QRSD: 77 T: 87 QT: 311 QTc: 446 Interpretive Statements SINUS TACHYCARDIA WITH SHORT AK INTERVAL POSSIBLE RIGHT VENTRICULAR CONDUCTION DELAY [RSR (QR) IN V1/V2] ABNORMAL RHYTHM ECG Compared to ECG 02/13/2023 07:21:16 Short AK interval now present Sinus rhythm no longer present Electronically Signed On 02-18-2023 21:27:33 PROJECT GEOLOGIST by Marcy Davalos M.D. [id number]
[2023-02-18 14:09] VITALS: BP 167/85; PULSE 120; RESP 19; O2SAT 95
--- NOTE | 2023-02-18 14:11 | PC.NURSE ---
pt placed on engine monitor, on 3L NC at this time, oxygen sat 97%
[2023-02-18 14:46] LABS: Add Urine Microscopic? YES; Bacteria Urine TRACE /hpf; Bilirubin Urine Neg (Negative); Blood Urine Neg (Negative); Glucose Urine UA Norm (Normal); Ketones Urine Negative (Negative); Leukocyte Esterase Urine Trace (Negative); Mucus Urine 1+ /hpf; Nitrate Urine Negative (Negative); Protein Urine Neg (Negative); Squamous Epithelial Cell Urine 0-4 /hpf (0-5); Urine Appearance Clear (CLEAR); Urine Color Yellow (Yellow); Urobilinogen Urine 1 mg/dL (Negative); pH Urine 6 (5-7)
[2023-02-18] MEDS: ipratropium-albuterol 3 mL Neb INHALATION (14:46)
[2023-02-18 14:47] LABS: Add Urine Culture? No
[2023-02-18 14:48] VITALS: PULSE 120; RESP 22; O2SAT 93
[2023-02-18 14:49] LABS: Basophils # 0.1 10^3/uL (0.0-0.1); Basophils % 0.7 %; Eosinophils # 0.8 10^3/uL (0.0-0.8); Eosinophils % 11.2 %; Lymphocytes # 1.1 10^3/uL (0.8-4.8); Lymphocytes % 15.1 %; Mean Corpuscular HGB Conc 32.8 g/dL (30-55); Mean Corpuscular Hemoglobin 32.2 pg (27-33); Mean Corpuscular Volume 98.2 fl (85-98); Mean Platelet Volume 10.1 fL (7.4-10.4); Monocytes # 0.8 10^3/uL (0.2-0.9); Neutrophils # 4.72 10^3/uL (1.8-7.7); Neutrophils % 62.6 %; Nucleated Red Blood Cells % 0 %; Platelet Count 315 10^3/cmm (157-399); Red Blood Count 4.38 10^6/uL (3.85-5.65); Red Cell Distribution Width 12.5 % (12.1-15.1); White Blood Count 7.53 10^3/uL (3.29-11.43)
[2023-02-18 14:55] VITALS: PULSE 105
[2023-02-18] MEDS: dexamethasone 10 mg/mL INJ IM (14:56)
[2023-02-18 15:14] LABS: Troponin(5th) Baseline 10 ng/L (0-10)
[2023-02-18 15:24] LABS: Alanine Aminotransferase 13 U/L (0-33); Albumin Level 4.3 g/dL (3.5-5.2); Alkaline Phosphatase 91 U/L (35-105); Aspartate Amino Transferase 19 U/L (0-32); Blood Urea Nitrogen 18 mg/dL (8-23); Calcium 10.1 mg/dL (8.5-10.5); Carbon Dioxide 31 mmol/L (22-29); Chloride 100 mmol/L (98-107); Globulin 2.2 g/dL (1.3-4.6); Glucose 88 mg/dL (65-115); NT Pro B Type Natriuretic Pept 53 pg/mL (0-125); Osmolality Calculated 291 mOsm/kg (285-295); Sodium 140 mmol/L (136-145); Total Bilirubin 0.9 mg/dL (0.15-1.2); Total Protein 6.5 g/dL (6.6-8.7)
[2023-02-18 15:49] VITALS: BP 133/82; PULSE 121; O2SAT 97
== END 2023-02-18 15:51 | disposition home or self-care (01) ==
PROVIDERS: Emergency Provider Family Medicine; PCP Family Medicine
DX: J44.1 Chronic obstructive pulmonary disease with (acute) exacerbation (principal); Z87.891 Personal history of nicotine dependence
CPT/HCPCS: 71045; 80053; 81001; 83880; 84484; 85025; 93005; 94640; 96372; 99285; J1100

== ENCOUNTER 2023-02-21 12:42 | Emergency (ER) | payer MEDICARE, SELFPAY ==
--- NOTE | 2023-02-21 12:45 | XR_ITS ---
WS: [id number] Portable AP upright chest, 02/21/2023 Clinical Data: cough malaise Comparison: Portable chest, 02/18/2023 Findings: No nodules, masses or effusions are seen. The heart is normal. The pulmonary vascularity is not increased. No pneumonia or pneumothorax is seen. The diaphragms are flattened. There is minimal tortuosity and calcification of the aortic arch and descending thoracic aorta. There is a minimal dex troscoliosis. There are right upper quadrant cholecystectomy clips. Impression: Atherosclerosis and hyperinflation.
[2023-02-21 12:46] VITALS: BP 173/104; PULSE 111; RESP 16; TEMP 36.7; O2SAT 100; BMI 22.4
--- NOTE | 2023-02-21 12:54 | ECG_ITS ---
[facility] Test Date: 2023-02-21 Pat Name: Socorro Montes De Oca Department: Room: Gender: Female Staff Pharmacist Hospital: : 1950 Requested By: Sorin Irving Order Number: [id number] Octavio MD: Jamaal Drummond M.D. Measurements Intervals [place] Rate: 107 P: 98 VA: 162 QRS: 67 QRSD: 85 T: 78 QT: 339 QTc: 453 Interpretive Statements SINUS TACHYCARDIA POSSIBLE RIGHT VENTRICULAR CONDUCTION DELAY [RSR (QR) IN V1/V2] MODERATE ST DEPRESSION [0.05+ mV ST DEPRESSION] Compared to ECG 02/18/2023 13:59:53 ST (T wave) deviation now present Short VA interval no longer present Electronically Signed On 02-21-2023 15:29:20 VALUE ENGINEER by Jamaal Drummond M.D. [id number]
--- NOTE | 2023-02-21 12:57 | W.ED.WEAKNES ---
HPI - Weakness General: Chief complaint: Weakness Stated complaint: Gen weakness Time Seen by Provider: 02/21/23 12:43 History of Present Illness: 72-year-old female presents emerged part with complaints of feeling like she is having increased weakness and fever over the previous 2 days. She does appear to be afebrile here in the emergency department. She does have a history of COPD and failure to thrive. Patient does not appear to be in any acute distress. She has no increased work of breathing. She denies chest pain or increased shortness of breath at present. Patient is currently on 3 L nasal cannula which has improved from her previous oxygen requirements at home. Associated symptoms: Reports fever(s) Review of Systems General: Reports: 10 or more systems reviewed and unremarkable except in HPI and below Const: Reports: fever(s), fatigue and malaise Resp: Reports: non-productive cough PFSH ED PFSH: Medical History Fibromyalgia syndrome MDD (major depressive disorder) Delusional disorder Generalized anxiety disorder Opioid contract exists Acute on chronic respiratory failure with hypoxia and hypercapnia Acute respiratory distress Right lower lobe pneumonia Acute respiratory distress Acute exacerbation of chronic obstructive airways disease Chronic respiratory failure with hypoxia Anxiety disorder Panic attacks Asthma-COPD overlap syndrome COPD (chronic obstructive pulmonary disease) Panic anxiety syndrome Surgical History History of appendectomy History of hysterectomy History of cholecystectomy Hx of tonsillectomy Family History Other No pertinent family history Social History Smoking and tobacco/nicotine status: former use of tobacco/nicotine Quit status (tobacco/nicotine): has quit using Year quit tobacco: 2015 - 1PPD x 40 Years Alcohol intake: never Substance/Drug Use: never Lives independently: Yes Household members: none Current occupational status: disabled Pets and animals: Yes Pets & animals: dog(s) Do you think of yourself as: Straight/Heterosexual Current gender identity: Female Physical Exam Narrative: EXAM NARRATIVE: Constitutional: the patient appears well nourished and with normal development. Vital signs reviewed as documented. HENMT: Normocephalic, atraumatic. Extermal ears with normal appearance without drainage. Nose without drainage, normal appearance. Mucus membranes moist. Neck is supple, No jugular venous distension, trachea is midline, no appreciable carotid bruits. No lymphadenopathy. No meningeal signs. Flexion, extension and lateral rotation is without pain. Eyes: Pupils are equal, round, reactive to light and accommodation. No scleral icterus. Extra-ocular movement are intact. Thorax is symmetrical and with equal rise and fall with respirations. Resp: Lungs are clear to auscultation. No wheezes, rales, crackles or ronchi at present. Cardio: Regular rate and rhythm. Positive S1, S2. No appreciable murmurs, rubs or gallops. GI: Abdominal exam reveals normal bowel sounds to all quadrants. No organomegaly. No obvious palpable masses noted. No hepatomegally appreciated. Soft, nontender to palpation. Extremity: Extremities are non-edematous and both femoral and pedal pulses are 2+ and equal bilaterally. Moves all extremities well, sensation in all extremities. Neuro: Alert and oriented x4, person, place, time and situation. Cranial nerves II through XII are grossly intact, there is no focal neurological deficits that I can appreciate at present. Motor strength in the upper and lower extremities are equal and bilateral 5/5. Psych: Cooperative, calm, normal thought process, appropriate judgment. Skin: No lesions, rashes. No gross abnormalities noted. Back: Symmetrical, no obvious deformity, No CVA tenderness Course Vital Signs: Vital signs: Vital Signs Temperature 98.1 F 02/21/23 12:46 Pulse Rate 107 H 02/21/23 13:02 Respiratory Rate 16 02/21/23 12:46 Blood Pressure 148/97 02/21/23 14:04 Pulse Oximetry 98 02/21/23 14:04 Oxygen Delivery Me thod Nasal Cannula 02/21/23 14:04 Oxygen Flow Rate 3 02/21/23 14:04 MDM - Weakness Medical Decision Making Physical exam completed and documented, I will obtain serial cardiac enzymes, serial twelve-lead EKGs, chest x-ray, CBC, CMP, urinalysis, B-type natriuretic peptide, PT/PTT/INR, and a chest x-ray. I will review any pervious and pertinent medical records for assist in obtaining beneficial medical information to improved the care and treatment of the patient. Medical Records I reviewed the patient's medical records. Lab Data I reviewed the patient's lab results. 02/21/23 13:00 02/21/23 13:00 Laboratory Results WBC 7.89 10^3/uL (3.29-11.43) 02/21/23 13:00 RBC 4.66 10^6/uL (3.85-5.65) 02/21/23 13:00 Hgb 14.90 g/dL (11.27-16.99) 02/21/23 13:00 Hct 44.1 % (36-47) 02/21/23 13:00 MCV 94.6 fl (85-98) 02/21/23 13:00 MCH 32.0 pg (27-33) 02/21/23 13:00 MCHC 33.8 g/dL (30-55) 02/21/23 13:00 RDW 12.7 % (12.1-15.1) 02/21/23 13:00 Plt Count 344 10^3/cmm (157-399) 02/21/23 13:00 MPV 10.7 fL (7.4-10.4) H 02/21/23 13:00 Neut % (Auto) 66.3 % 02/21/23 13:00 Lymph % (Auto) 14.3 % 02/21/23 13:00 Rush % (Auto) 8.7 % 02/21/23 13:00 Eos % (Auto) 9.5 % 02/21/23 13:00 Baso % (Auto) 0.8 % 02/21/23 13:00 Neut # (Auto) 5.23 10^3/uL (1.8-7.7) 02/21/23 13:00 Lymph # (Auto) 1.1 10^3/uL (0.8-4.8) 02/21/23 13:00 Rush # (Auto) 0.7 10^3/uL (0.2-0.9) 02/21/23 13:00 Eos # (Auto) 0.8 10^3/uL (0.0-0.8) 02/21/23 13:00 Baso # (Auto) 0.1 10^3/uL (0.0-0.1) 02/21/23 13:00 Nucleated RBC % (auto) 0 % 02/21/23 13:00 Nucleated RBCs # 0.0 /100WBC 02/21/23 13:00 PT 12.00 SECONDS (12.1-14.9) L 02/21/23 13:00 INR 0.87 (0.8-1.2) 02/21/23 13:00 Sodium 140 mmol/L (136-145) 02/21/23 13:00 Potassium 3.7 mmol/L (3.5-5.1) 02/21/23 13:00 Chloride 98 mmol/L (98-107) 02/21/23 13:00 Carbon Dioxide 27 mmol/L (22-29) 02/21/23 13:00 Anion Gap 18.7 (5-19) 02/21/23 13:00 BUN 11 mg/dL (8-23) 02/21/23 13:00 Creatinine 0.5 mg/dL (0.5-0.9) 02/21/23 13:00 GFR Calculation Not Reportable 02/21/23 13:00 Glucose 127 mg/dL (65-115) H 02/21/23 13:00 Calculated Osmolality 291 mOsm/kg (285-295) 02/21/23 13:00 Lactic Acid 1.1 mmol/L (0.5-2.2) 02/21/23 13:00 Calcium 9.7 mg/dL (8.5-10.5) 02/21/23 13:00 Total Bilirubin 1.0 mg/dL (0.15-1.2) 02/21/23 13:00 AST 21 U/L (0-32) 02/21/23 13:00 ALT 15 U/L (0-33) 02/21/23 13:00 Alkaline Phosphatase 85 U/L (35-105) 02/21/23 13:00 NT-Pro-B Natriuret Pep 96 pg/mL (0-125) 02/21/23 13:00 Total Protein 7.5 g/dL (6.6-8.7) 02/21/23 13:00 Albumin 4.6 g/dL (3.5-5.2) 02/21/23 13:00 Globulin 2.9 g/dL (1.3-4.6) 02/21/23 13:00 Procalcitonin 0.02 ng/mL (0-0.5) 02/21/23 13:00 Urine Color Yellow (Yellow) 02/21/23 14:29 Urine Appearance Clear (CLEAR) 02/21/23 14:29 Urine pH 6.5 (5-7) 02/21/23 14:29 Ur Specific [place] 1.010 (1.005-1.030) 02/21/23 14:29 Urine Protein Neg (Negative) 02/21/23 14:29 Urine Glucose (UA) Norm (Normal) 02/21/23 14:29 Urine Ketones 1+ (Negative) H 02/21/23 14:29 Urine Blood Neg (Negative) 02/21/23 14: Urine Nitrate Negative (Negative) 02/21/23 14:29 Urine Bilirubin Neg (Negative) 02/21/23 14: Urine Urobilinogen 1 mg/dL (Negative) H 02/21/23 14:29 Ur Leukocyte Esterase Negative (Negative) 02/21/23 14:29 Nasal Influ A H1 2009 PCR Not detected (NOT DETECT) 02/21/23 13:47 Adenovirus (PCR) Not detected (NOT DETECT) 02/21/23 13:47 C. pneumoniae DNA (PCR) Not detected (NOT DETECT) 02/21/23 13:47 Coronavirus 229E (PCR) Not detected (NOT DETECT) 02/21/23 13:47 Human Metapneumovir PCR Not detected (NOT DETECT) 02/21/23 13:47 Influenza A (H1) PCR Not detected (NOT DETECT) 02/21/23 13:47 Influenza A (H3) PCR Not detected (NOT DETECT) 02/21/23 13:47 Influenza Type A Ag Cancelled 02/21/23 13:41 Influenza Type A (PCR) Not detected (NOT DETECT) 02/21/23 13:47 Influenza Type B Ag Cancelled 02/21/23 13:41 Influenza Type B (PCR) Not detected (NOT DETECT) 02/21/23 13:47 M. pneumoniae (PCR) Not detected (NOT DETECT) 02/21/23 13:47 Parainfluenza 1 (PCR) Not detected (NOT DETECT) 02/21/23 13:47 Parainfluenza 2 (PCR) Not detected (NOT DETECT) 02/21/23 13:47 Parainfluenza 3 (PCR) Not detected (NOT DETECT) 02/21/23 13:47 Parainfluenza 4 (PCR) Not detected (NOT DETECT) 02/21/23 13:47 RSV Type A (PCR) Not detected (NOT DETECT) 02/21/23 13:47 RSV Type B (PCR) Not detected (NOT DETECT) 02/21/23 13:47 Entero/Rhino (PCR) Not detected (NOT DETECT) 02/21/23 13:47 SARS-CoV-2 (PCR) Not detected (NOT DETECT) 02/21/23 13:47 SARS-CoV-2 Ag (Rapid) negative (Negative) 02/21/23 13:41 All radiology interpretation(s) finalized by discharge EKG Data EKG 1: Interpretation: Twelve-lead EKG obtained at 1254, and reviewed at 1255 demonstrates sinus tachycardia with a ventricular rate of 107, ID interval 162, QRS duration 85, QT 339 QTc 402 there is significant motion artifact, there is no ST elevation or depression at present to demonstrate acute ischemia or infarction. Discharge Plan Discharge Patient Disposition: Home Clinical Impression: Weakness, Viral upper respiratory illness Condition: Stable Prescriptions: No Action fluoxetine 20 mg capsule 20 mg PO DAILY Qty: 30 1RF Rx Instructions: rx filled and picked up [facility] wp 01/27/23 30d/s clonazepam 2 mg tablet 2 mg PO BID Qty: 20 0RF Rx Instructions: rx filled and picked up [facility] wp 01/27/23 10d/s citalopram 10 mg tablet 10 mg PO DAILY albuterol sulfate 90 mcg/actuation HFA aerosol inhaler 2 inh INHALATION Q4H PRN (Reason: shortness of breath or wheezing) Qty: 18 0RF ipratropium-albuterol 0.5 mg-3 mg(2.5 mg base)/3 mL solution for nebulization 3 ml inhalation Q4H PRN (Reason: shortness of breath or wheezing) Qty: 90 0RF methylprednisolone [Medrol (Harsha)] 4 mg tablets,dose pack See Rx Instructions .ROUTE .COMPLEX Qty: 21 0RF Rx Instructions: orally per package directions Discharge Orders: Discharge ED (Routine); Ordered 02/21/23 Ordered By: Sorin Irving Referrals: Kalen Bowser MD [Primary Care Provider] - Discharge Diet: Advance as tolerated Discharge Activity: Resume usual activity Patient Instructions: Opioid Safety, Pain Management Activity Restrictions/Additional Instructions: Activity Restrictions/Additional Instructions: [facility] you [facility]. Please realize that you were seen in the Emergency Department and that we are providing you with an emergency medical screening exam and this may not be a complete and all inclusive of all the testing and or medical work-up that you may need to determine your ailment or severity of your illness. It is very important that you follow-up as instructed with your Primary care provider or Specialist for additional evaluation and to discuss your medical treatment plan. You may return to the Emergency Department should you have concerns or if your condition changes or worsens in any way. Coding Level of Care Code ED Credit Control Administrator for Ji Melgar
[2023-02-21 13:02] VITALS: BP 180/109; PULSE 107
[2023-02-21 13:20] LABS: Basophils # 0.1 10^3/uL (0.0-0.1); Basophils % 0.8 %; Eosinophils # 0.8 10^3/uL (0.0-0.8); Eosinophils % 9.5 %; Hematocrit 44.1 % (36-47); Lymphocytes # 1.1 10^3/uL (0.8-4.8); Lymphocytes % 14.3 %; Mean Corpuscular HGB Conc 33.8 g/dL (30-55); Mean Corpuscular Volume 94.6 fl (85-98); Mean Platelet Volume 10.7 fL (7.4-10.4); Monocytes # 0.7 10^3/uL (0.2-0.9); Monocytes % 8.7 %; Neutrophils # 5.23 10^3/uL (1.8-7.7); Neutrophils % 66.3 %; Nucleated Red Blood Cells % 0 %; Platelet Count 344 10^3/cmm (157-399); Red Blood Count 4.66 10^6/uL (3.85-5.65); Red Cell Distribution Width 12.7 % (12.1-15.1); White Blood Count 7.89 10^3/uL (3.29-11.43)
[2023-02-21 13:25] LABS: INR 0.87 (0.8-1.2)
[2023-02-21 13:32] LABS: Lactic Sepsis W/Reflex 1.1 mmol/L (0.5-2.2)
--- NOTE | 2023-02-21 13:34 | PC.PHAR ---
pt states she takes care of her own medications-pt states she is only using her albuterol inhaler prn ext shows last filled 02/19/23 16d/s and ipratropium/albuterol neb solution prn ext doesnt show when last filled rx written from er 02/18/23 ext doesnt show when or if filled-er dr wrote a medrol james on 02/18/23 ext doesnt show if or when filled-pt states she is not taking fluoxetine 20mg daily filled 01/27/23 30d/s,clonazepam 2mg bid filled 01/27/23 10d/s pt states she didnt get [facility] states the pt picked up the clonazepam-pt states she dced the celexa 10mg daily filled on 02/01/23 30d/s pt states it made her feel weird-pt also states she is not taking divalproex sprinkle delayed release 125mg take 2 caps tid filled on 01/08/23 30d/s-notes are made in the pharmacy comments
[2023-02-21 13:44] VITALS: BP 153/91; O2SAT 98
[2023-02-21 13:45] LABS: NT Pro B Type Natriuretic Pept 96 pg/mL (0-125); Procalcitonin 0.02 ng/mL (0-0.5)
[2023-02-21 13:57] LABS: Alanine Aminotransferase 15 U/L (0-33); Albumin Level 4.6 g/dL (3.5-5.2); Alkaline Phosphatase 85 U/L (35-105); Aspartate Amino Transferase 21 U/L (0-32); Blood Urea Nitrogen 11 mg/dL (8-23); Calcium 9.7 mg/dL (8.5-10.5); Carbon Dioxide 27 mmol/L (22-29); Chloride 98 mmol/L (98-107); Creatinine Clr Calc Pharmacy 46.9109; Globulin 2.9 g/dL (1.3-4.6); Glucose 127 mg/dL (65-115); Osmolality Calculated 291 mOsm/kg (285-295); Sodium 140 mmol/L (136-145); Total Protein 7.5 g/dL (6.6-8.7)
[2023-02-21 14:03] LABS: Anion Gap 18.7 (5-19); Potassium 3.7 mmol/L (3.5-5.1)
[2023-02-21 14:04] VITALS: BP 148/97; O2SAT 98
[2023-02-21 14:33] LABS: Add Urine Microscopic? NO; Charge for UA Resulting for Rev
[2023-02-21 14:36] LABS: SARS Covid-2 Antigen negative (Negative)
[2023-02-21 14:50] LABS: Bilirubin Urine Neg (Negative); Blood Urine Neg (Negative); Glucose Urine UA Norm (Normal); Ketones Urine 1+ (Negative); Leukocyte Esterase Urine Negative (Negative); Nitrate Urine Negative (Negative); Protein Urine Neg (Negative); Urine Appearance Clear (CLEAR); Urine Color Yellow (Yellow); Urobilinogen Urine 1 mg/dL (Negative); pH Urine 6.5 (5-7)
[2023-02-21 16:04] LABS: Adenovirus Not Detected (NOT DETECT); Chlamydia Pneumoniae Not Detected (NOT DETECT); Coronavirus 229E,HKU1,NL63,OC4 Not Detected (NOT DETECT); Human Metapneumovirus Not Detected (NOT DETECT); Human Rhinovirus/Enterovirus Not Detected (NOT DETECT); Influenza A Not Detected (NOT DETECT); Influenza A H1 Not Detected (NOT DETECT); Influenza A H1-2009 Not Detected (NOT DETECT); Influenza A H3 Not Detected (NOT DETECT); Influenza B Not Detected (NOT DETECT); Mycoplasma Pneumoniae Not Detected (NOT DETECT); Parainfluenza Virus Type 1 Not Detected (NOT DETECT); Parainfluenza Virus Type 2 Not Detected (NOT DETECT); Parainfluenza Virus Type 3 Not Detected (NOT DETECT); Parainfluenza Virus Type 4 Not Detected (NOT DETECT); Respiratory Syncytial Virus A Not Detected (NOT DETECT); Respiratory Syncytial Virus B Not Detected (NOT DETECT); SARS-COV-2 Not Detected (NOT DETECT)
--- NOTE | 2023-02-21 16:16 | DCPLANNER ---
Message sent to Case Managment for follow up for home care.
== END 2023-02-21 16:18 | disposition home or self-care (01) ==
PROVIDERS: Emergency Provider Internal Medicine; PCP Family Medicine
DX: J06.9 Acute upper respiratory infection, unspecified (principal); R53.1 Weakness; Z11.52 Encounter for screening for COVID-19; Z87.891 Personal history of nicotine dependence; J44.9 Chronic obstructive pulmonary disease, unspecified
CPT/HCPCS: 36415; 71045; 80053; 81003; 83605; 83880; 84145; 85025; 85610; 87040; 87426; 87486; 87581; 87633; 93005; 99285

== ENCOUNTER 2023-02-24 02:22 | Emergency (ER) | payer MEDICARE, SELFPAY ==
[2023-02-24 02:28] VITALS: BP 147/102; PULSE 124; RESP 20; TEMP 36.1; O2SAT 96; BMI 23.4
--- NOTE | 2023-02-24 02:36 | ECG_ITS ---
[facility] Test Date: 2023-02-24 Pat Name: Socorro Montes De Oac Department: Room: Gender: Female Health Insurance Agent: : [id number] Requested By: Casey Regan Order Number: [id number] Octavio MD: Murray Abreu M.D. Measurements Intervals [place] Rate: 114 P: 86 [place]: 129 QRS: 56 QRSD: 77 T: 77 QT: 330 QTc: 455 Interpretive Statements SINUS TACHYCARDIA POSSIBLE LEFT ATRIAL ENLARGEMENT [-0.1mV P-WAVE IN V1/V2] POSSIBLE RIGHT VENTRICULAR CONDUCTION DELAY [RSR (QR) IN V1/V2] ABNORMAL RHYTHM ECG Compared to ECG 02/21/2023 12:54:48 ST (T wave) deviation no longer present Electronically Signed On 02-24-2023 8:58:28 TELEPHONIC NURSE CASE MANAGER by Murray Abreu M.D. [id number]
--- NOTE | 2023-02-24 02:36 | XRR_ITS ---
PROCEDURE INFORMATION: Exam: XR Chest Exam date and time: 02/24/2023 2:44 AM Age: 72 years old Clinical indication: Shortness of breath; Patient HX: C/O SOB with dyspnea. History of copd. TECHNIQUE: Imaging protocol: Radiologic exam of the chest. Views: 1 view. COMPARISON: CR XR chest 1V portable [id number] 02/21/2023 1:04 PM FINDINGS: Lungs: Lungs are hyperinflated. Reticular opacity noted at the left lung base. Pleural spaces: No pleural effusion. No pneumothorax. Heart/Mediastinum: Cardiac silhouette is normal in size for technique. Bones/joints: Age appropriate. XR/XR chest 1V portable [id number] IMPRESSION: Hyperinflated lungs. Reticular opacity at the left lung base may reflect superimposed aspiration, pneumonitis, or atelectasis..
--- NOTE | 2023-02-24 02:42 | ED_ITS ---
HPI - SOB/Dyspnea 2 General: Chief Complaint: Shortness of Breath/Dyspnea Stated Complaint: SOB Time Seen by Provider: 02/24/23 02:28 History of Present Illness: HPI Narrative: Patient presents to the ER via EMS with complaints of shortness of breath. Patient states this all started when she woke up this morning. She says when she went to bed last night she felt fine. Patient is normally on 6 L of oxygen per nasal cannula at all times patient presents to the ER on 6 L of oxygen with O2 sat of 96%. EMS did give her 1 nebulizer treatment during transfer. Patient denies any fevers chills nausea vomiting diarrhea abdominal pain etc. Patient was seen in ER approximately 3 days ago for similar symptoms and diagnosed with a viral upper respiratory illness. Review of Systems 2 General: Reports: 10 or more systems reviewed and unremarkable except in HPI and below PFSH ED 2 PFSH: Medical History Fibromyalgia syndrome MDD (major depressive disorder) Delusional disorder Generalized anxiety disorder Opioid contract exists Acute on chronic respiratory failure with hypoxia and hypercapnia Acute respiratory distress Right lower lobe pneumonia Acute respiratory distress Acute exacerbation of chronic obstructive airways disease Chronic respiratory failure with hypoxia Anxiety disorder Panic attacks Asthma-COPD overlap syndrome COPD (chronic obstructive pulmonary disease) Panic anxiety syndrome Surgical History History of appendectomy History of hysterectomy History of cholecystectomy Hx of tonsillectomy Family History Other No pertinent family history Social History Smoking and tobacco/nicotine status: former use of tobacco/nicotine Quit status (tobacco/nicotine): has quit using Year quit tobacco: 2015 - 1PPD x 40 Years Alcohol intake: never Substance/Drug Use: never Lives independently: Yes Household members: none Current occupational status: disabled Pets and animals: Yes Pets & animals: dog(s) Do you think of yourself as: Straight/Heterosexual Current gender identity: Female Physical Exam 2 Const: COMMON NORMALS: no acute distress, average body habitus, patient oriented x3, no limitations, healthy appearing, alert and well nourished HENMT: COMMON NORMALS: normocephalic, atraumatic, hearing grossly normal bilaterally, external ears normal, Normal external nose present, moist oral mucous membranes and oropharynx normal HEAD & SCALP: normocephalic and atraumatic NOSE: Normal external nose present EXTERNAL EAR: Yes external ears normal Eye: COMMON NORMALS: Equal, round and reactive pupils present, EOMs intact bilaterally, conjunctivae normal and no scleral icterus CONJUNCTIVA: Yes conjunctivae normal PUPIL: Yes Equal, round and reactive pupils present Neck/C-Spine: COMMON NORMALS: full ROM, no lymphadenopathy, supple, no meningeal signs, no JVD and Thyroid normal THYROID: Thyroid normal Chest: COMMONS NORMALS: normal inspection of the chest and normal palpation of entire chest wall Resp: COMMON NORMALS: normal respiratory effort, No retractions, No use of accessory muscles and clear to auscultation bilaterally AUSCULTATION: clear to auscultation bilaterally Cardio: COMMON NORMALS: no JVD, regular rhythm, S1 normal heart sound present, S2 normal heart sound present, No gallops present (Cardio), No clicks present (Cardio), No murmurs present (Cardio) and No rub (Cardio); negative for regular rate (Tachycardic) RATE: abnormal rate (Tachycardic) RHYTHM: regular rhythm HEART SOUNDS: S1 normal heart sound present and S2 normal heart sound present GI: COMMON NORMALS: Normal to inspection, nondistended, normoactive bowel sounds present, Soft to palpation, non-tender, No hepatosplenomegaly present and no masses PALPATION: Yes Soft to palpation and Yes No hepatosplenomegaly present Neuro: COMMON NORMALS: patient oriented x3 SENSORIUM/ORIENTATION: Yes alert MENINGEAL SIGNS: Yes no meningeal signs Course 2 Reevaluation(s): Reevaluation #1: Upon recheck patient is resting in bed sound asleep comfortably on her 6 L of oxygen. Vital Signs: Vital signs: Vital Signs Temperature 97.0 F L 02/24/23 02:28 Pulse Rate 114 H 02/24/23 03:20 Respiratory Rate 17 02/24/23 03:12 Blood Pressure 147/102 02/24/23 02:28 Pulse Oximetry 96 02/24/23 03:12 Oxygen Delivery Me thod Nasal Cannula 02/24/23 03:12 Oxygen Flow Rate 5 02/24/23 03:12 MDM - SOB/Dyspnea Medical Decision Making Patient presented to the ER tachycardic and taking very shallow breaths but she was on her 6 L of oxygen per nasal cannula. Patient had a workup included chest x-ray lab work, EKG all of which was essentially benign. Patient was given an albuterol breathing treatment and 125 mg Solu-Medrol. Upon recheck patient was sound asleep in her bed on her normal 6 L of oxygen. Patient be discharged home. Differential Diagnosis Likely acute exacerbation of chronic obstructive airways disease; Unlikely congestive heart failure, community acquired pneumonia, asthma with exacerbation or pulmonary embolism Medical Records I reviewed the patient's medical records. Lab Data I reviewed the patient's lab results. 02/24/23 02:39 02/24/23 03:17 Labs/Radiology: Radiology Impressions Chest X-Ray 02/24/23 02:36 IMPRESSION: Hyperinflated lungs. Reticular opacity at the left lung base may reflect superimposed aspiration, pneumonitis, or atelectasis.. Laboratory Results WBC 9.55 10^3/uL (3.29-11.43) 02/24/23 02:39 RBC 4.63 10^6/uL (3.85-5.65) 02/24/23 02:39 Hgb 14.80 g/dL (11.27-16.99) 02/24/23 02:39 Hct 44.0 % (36-47) 02/24/23 02:39 MCV 95.0 fl (85-98) 02/24/23 02:39 MCH 32.0 pg (27-33) 02/24/23 02:39 MCHC 33.6 g/dL (30-55) 02/24/23 02:39 RDW 12.5 % (12.1-15.1) 02/24/23 02:39 Plt Count 369 10^3/cmm (157-399) 02/24/23 02:39 MPV 11.2 fL (7.4-10.4) H 02/24/23 02:39 Neut % (Auto) 60.8 % 02/24/23 02:39 Lymph % (Auto) 21.9 % 02/24/23 02:39 [place] % (Auto) 9.9 % 02/24/23 02:39 Eos % (Auto) 6.4 % 02/24/23 02:39 Baso % (Auto) 0.7 % 02/24/23 02:39 Neut # (Auto) 5.80 10^3/uL (1.8-7.7) 02/24/23 02:39 Lymph # (Auto) 2.1 10^3/uL (0.8-4.8) 02/24/23 02:39 [place] # (Auto) 1.0 10^3/uL (0.2-0.9) H 02/24/23 02:39 Eos # (Auto) 0.6 10^3/uL (0.0-0.8) 02/24/23 02:39 Baso # (Auto) 0.1 10^3/uL (0.0-0.1) 02/24/23 02:39 Nucleated RBC % (auto) 0 % 02/24/23 02:39 Nucleated RBCs # 0.0 /100WBC 02/24/23 02:39 Sodium 137 mmol/L (136-145) 02/24/23 03:17 Potassium 3.5 mmol/L (3.5-5.1) 02/24/23 03:17 Chloride 95 mmol/L (98-107) L 02/24/23 03:17 Carbon Dioxide 29 mmol/L (22-29) 02/24/23 03:17 Anion Gap 16.5 (5-19) 02/24/23 03:17 BUN 14 mg/dL (8-23) 02/24/23 03:17 Creatinine 0.5 mg/dL (0.5-0.9) 02/24/23 03:17 GFR Calculation Not Reportable 02/24/23 03:17 Glucose 121 mg/dL (65-115) H 02/24/23 03:17 Calculated Osmolality 286 mOsm/kg (285-295) 02/24/23 03:17 Calcium 9.9 mg/dL (8.5-10.5) 02/24/23 03:17 Total Bilirubin 1.2 mg/dL (0.15-1.2) 02/24/23 03:17 AST 20 U/L (0-32) 02/24/23 03:17 ALT 12 U/L (0-33) 02/24/23 03:17 Alkaline Phosphatase 80 U/L (35-105) 02/24/23 03:17 NT-Pro-B Natriuret Pep 266 pg/mL (0-125) H 02/24/23 03:17 Total Protein 6.9 g/dL (6.6-8.7) 02/24/23 03:17 Albumin 4.4 g/dL (3.5-5.2) 02/24/23 03:17 Globulin 2.5 g/dL (1.3-4.6) 02/24/23 03:17 All radiology interpretation(s) finalized by discharge EKG Data EKG 1: I personally reviewed and interpreted this EKG as follows: EKG Interpretation Date: 02/24/23 EKG interpretation time: 02:50 Prior EKG tracings: not available for review Interpretation: EKG showed ventricular rate 114 beats minute, PA interval 129, QRS duration 77, QTc of 397, sinus tachycardia, Discharge Plan Discharge Patient Disposition: Home Clinical Impression: COPD (chronic obstructive pulmonary disease) Condition: Stable Prescriptions: No Action fluoxetine 20 mg capsule 20 mg PO DAILY Qty: 30 1RF Rx Instructions: rx filled and picked up [facility] wp 01/27/23 30d/s clonazepam 2 mg tablet 2 mg PO BID Qty: 20 0RF Rx Instructions: rx filled and picked up [facility] wp 01/27/23 10d/s citalopram 10 mg tablet 10 mg PO DAILY albuterol sulfate 90 mcg/actuation HFA aerosol inhaler 2 inh INHALATION Q4H PRN (Reason: shortness of breath or wheezing) Qty: 18 0RF ipratropium-albuterol 0.5 mg-3 mg(2.5 mg base)/3 mL solution for nebulization 3 ml inhalation Q4H PRN (Reason: shortness of breath or wheezing) Qty: 90 0RF methylprednisolone [Medrol (Harsha)] 4 mg tablets,dose pack See Rx Instructions .ROUTE .COMPLEX Qty: 21 0RF Rx Instructions: orally per package directions Discharge Orders: Discharge ED (Routine); Ordered 02/24/23 Ordered By: Casey Regan Referrals: Kalen Bowser MD [Primary Care Provider] - Patient Instructions: COPD Activity Restrictions/Additional Instructions: Please follow-up with your family practice physician for further evaluation and treatment. Coding Level of Care Code ED Glue Bone Drier for Ji Melgar
[2023-02-24 02:49] LABS: Basophils # 0.1 10^3/uL (0.0-0.1); Basophils % 0.7 %; Eosinophils # 0.6 10^3/uL (0.0-0.8); Eosinophils % 6.4 %; Lymphocytes # 2.1 10^3/uL (0.8-4.8); Lymphocytes % 21.9 %; Mean Corpuscular HGB Conc 33.6 g/dL (30-55); Mean Platelet Volume 11.2 fL (7.4-10.4); Monocytes % 9.9 %; Neutrophils % 60.8 %; Nucleated Red Blood Cells % 0 %; Platelet Count 369 10^3/cmm (157-399); Red Blood Count 4.63 10^6/uL (3.85-5.65); Red Cell Distribution Width 12.5 % (12.1-15.1); White Blood Count 9.55 10^3/uL (3.29-11.43)
[2023-02-24] MEDS: methylPREDNISolone sod succ 125 mg/2 mL INJ IVP (02:54)
[2023-02-24 03:12] VITALS: PULSE 107; RESP 17; O2SAT 96
[2023-02-24] MEDS: albuterol 2.5 mg/3 mL Neb INHALATION (03:12)
[2023-02-24 03:20] VITALS: PULSE 114
[2023-02-24 03:50] LABS: Alanine Aminotransferase 12 U/L (0-33); Albumin Level 4.4 g/dL (3.5-5.2); Alkaline Phosphatase 80 U/L (35-105); Anion Gap 16.5 (5-19); Aspartate Amino Transferase 20 U/L (0-32); Blood Urea Nitrogen 14 mg/dL (8-23); Calcium 9.9 mg/dL (8.5-10.5); Carbon Dioxide 29 mmol/L (22-29); Chloride 95 mmol/L (98-107); Globulin 2.5 g/dL (1.3-4.6); Glucose 121 mg/dL (65-115); NT Pro B Type Natriuretic Pept 266 pg/mL (0-125); Osmolality Calculated 286 mOsm/kg (285-295); Potassium 3.5 mmol/L (3.5-5.1); Sodium 137 mmol/L (136-145); Total Bilirubin 1.2 mg/dL (0.15-1.2); Total Protein 6.9 g/dL (6.6-8.7)
[2023-02-24 04:45] VITALS: BP 112/52; PULSE 91; RESP 18; O2SAT 99
[2023-02-24 06:07] VITALS: BP 153/73; PULSE 94; O2SAT 99
--- NOTE | 2023-02-24 07:41 | PC.PHAR ---
see pharmacy note from 02/21/2023-pt states only uses ventolin inhaler notes are made in the pharmacy comments
== END 2023-02-24 09:12 | disposition home or self-care (01) ==
PROVIDERS: Emergency Provider Emergency Medicine; PCP Family Medicine
DX: J44.9 Chronic obstructive pulmonary disease, unspecified (principal); Z87.891 Personal history of nicotine dependence; R00.0 Tachycardia, unspecified; Z99.81 Dependence on supplemental oxygen; F41.0 Panic disorder [episodic paroxysmal anxiety]
CPT/HCPCS: 36415; 71045; 80053; 83880; 85025; 93005; 94640; 96374; 99281; 99285; J2930; J7613

== ENCOUNTER 2023-02-24 12:12 | Emergency (ER) | payer MEDICARE, SELFPAY ==
--- NOTE | 2023-02-24 12:16 | ED_ITS ---
HPI - Anxiety General: Chief Complaint: General Medical Stated Complaint: SOB Time Seen by Provider: 02/24/23 12:13 History of Present Illness: 72-year-old female presents emergency de partment via EMS with complaints of increased shortness of breath. Patient was seen in this emergency department approximately 4 hours ago and treated by Dr. Regan in the emergency department and discharged home with COPD exacerbation. Patient is well-known to this ER and this provider as she has longstanding history of COPD with anxiety as a secondary component. Patient states that she feels like she is again short of breath she is currently on 6 L nasal cannula which is her home oxygen main tenance dose. She states that she has not had to increase her home oxygen dosage. Given the patient's inability to care for herself I am significantly concerned regarding her current living situation, as she states that she lives by herself. Review of Systems General: Reports: 10 or more systems reviewed and unremarkable except in HPI and below Resp: Reports: dyspnea Psych: Reports: anxiety [facility] ED PFSH: Medical History Fibromyalgia syndrome MDD (major depressive disorder) Delusional disorder Generalized anxiety disorder Opioid contract exists Acute on chronic respiratory failure with hypoxia and hypercapnia Acute respiratory distress Right lower lobe pneumonia Acute respiratory distress Acute exacerbation of chronic obstructive airways disease Chronic respiratory failure with hypoxia Anxiety disorder Panic attacks Asthma-COPD overlap syndrome COPD (chronic obstructive pulmonary disease) Panic anxiety syndrome Surgical History History of appendectomy History of hysterectomy History of cholecystectomy Hx of tonsillectomy Family History Other No pertinent family history Social History Smoking and tobacco/nicotine status: former use of tobacco/nicotine Quit status (tobacco/nicotine): has quit using Year quit tobacco: 2015 - 1PPD x 40 Years Alcohol intake: never Substance/Drug Use: never Lives independently: Yes Household members: none Current occupational status: disabled Pets and animals: Yes Pets & animals: dog(s) Do you think of yourself as: Straight/Heterosexual Current gender identity: Female Physical Exam Narrative: EXAM NARRATIVE: Constitutional: the patient appears well nourished and with normal development. Vital signs reviewed as documented. Anxious appearing HENMT: Normocephalic, atraumatic. Extermal ears with normal appearance without drainage. Nose without drainage, normal appearance. Mucus membranes moist. Neck is supple, No jugular venous distension, trachea is midline, no appreciable carotid bruits. No lymphadenopathy. No meningeal signs. Flexion, extension and lateral rotation is without pain. Eyes: Pupils are equal, round, reactive to light and accommodation. No scleral icterus. Extra-ocular movement are intact. Thorax is symmetrical and with equal rise and fall with respirations. Resp: Prolonged expiratory phase, no obvious wheezing, rhonchi or rails. No tachypnea noted, currently on 6 L nasal cannula which is her home maintenance dose Cardio: Regular rate and rhythm. Positive S1, S2. No appreciable murmurs, rubs or gallops. GI: Abdominal exam reveals normal bowel sounds to all quadrants. No organomegaly. No obvious palpable masses noted. No hepatomegally appreciated. Soft, nontender to palpation. Extremity: Extremities are non-edematous and both femoral and pedal pulses are 2+ and equal bilaterally. Moves all extremities well, sensation in all extremities. Neuro: Alert and oriented x4, person, place, time and situation. Cranial nerves II through XII are grossly intact, there is no focal neurological deficits that I can appreciate at present. Motor strength in the upper and lower extremities are equal and bilateral 5/5. Psych: Cooperative, anxious, normal thought process, appropriate judgment. Skin: No lesions, rashes. No gross abnormalities noted. Back: Symmetrical, no obvious deformity, No CVA tenderness MDM - Anxiety Medical Decision Making Physical exam completed and documented, I did review the previous ER physician's note regarding the patient's presentation today. I will not repeat the radiographic or laboratory evaluation on the patient as her symptoms appear to be stable. We have contacted case management here at this hospital to discuss placement of the patient as I am concerned regarding her current living situation. Medical Records I reviewed the patient's medical records. No radiology studies performed this visit Discharge Plan Discharge Patient Disposition: Home Clinical Impression: Anxiety, Panic attacks Condition: Stable Prescriptions: No Action fluoxetine 20 mg capsule 20 mg PO DAILY Qty: 30 1RF Rx Instructions: rx filled and picked up itzel trevino 01/27/23 30d/s clonazepam 2 mg tablet 2 mg PO BID Qty: 20 0RF Rx Instructions: rx filled and picked up itzel wp 01/27/23 10d/s citalopram 10 mg tablet 10 mg PO DAILY albuterol sulfate 90 mcg/actuation HFA aerosol inhaler 2 inh INHALATION Q4H PRN (Reason: shortness of breath or wheezing) Qty: 18 0RF ipratropium-albuterol 0.5 mg-3 mg(2.5 mg base)/3 mL solution for nebulization 3 ml inhalation Q4H PRN (Reason: shortness of breath or wheezing) Qty: 90 0RF methylprednisolone [Medrol (Harsha)] 4 mg tablets,dose pack See Rx Instructions .ROUTE .COMPLEX Qty: 21 0RF Rx Instructions: orally per package directions Discharge Orders: Discharge ED (Routine); Ordered 02/24/23 Ordered By: Sorin Irving Referrals: Kalen Bowser MD [Primary Care Provider] - Discharge Diet: Advance as tolerated Discharge Activity: Resume usual activity Patient Instructions: Opioid Safety, Pain Management Activity Restrictions/Additional Instructions: Activity Restrictions/Additional Instructions: Thank you for choosing [facility] for your healthcare needs today. Please realize that you were seen in the Emergency Department and that we are providing you with an emergency medical screening exam and this may not be a complete and all inclusive of all the testing and or medical work-up that you may need to determine your ailment or severity of your illness. It is very important that you follow-up as instructed with your Primary care provider or Specialist for additional evaluation and to discuss your medical treatment plan. You may return to the Emergency Department should you have concerns or if your condition changes or worsens in any way. Coding Level of Care Code ED Senior Financial Reporting Accountant for Ji Melgar
== END 2023-02-24 14:00 | disposition home or self-care (01) ==
PROVIDERS: Emergency Provider Internal Medicine; PCP Family Medicine
DX: F41.0 Panic disorder [episodic paroxysmal anxiety] (principal); Z87.891 Personal history of nicotine dependence
CPT/HCPCS: 99281

== ENCOUNTER 2023-02-25 10:48 | Inpatient (IN) | payer MEDICARE, SELFPAY ==
[2023-02-25] VITALS (11 sets, daily range): BP systolic 118–156; BP diastolic 68–78; PULSE 77–111; RESP 16–22; TEMP 36.5–36.9; O2SAT 95–100; BMI 19.7; BMI 21.5
--- NOTE | 2023-02-25 10:52 | XRR_ITS ---
PROCEDURE INFORMATION: Exam: XR Chest Exam date and time: 02/25/2023 10:55 AM Age: 72 years old Clinical indication: Cough and dyspnea; Additional info: Dyspnea/cough TECHNIQUE: Imaging protocol: Radiologic exam of the chest. Views: 1 view. COMPARISON: CR (CHEST, ) 02/24/2023 2:44 AM FINDINGS: Lungs: Unremarkable. No consolidation. Pleural spaces: Unremarkable. No pleural effusion. No pneumothorax. Heart/Mediastinum: Unremarkable. No cardiomegaly. Bones/joints: Unremarkable. XR/XR chest 1V portable [id number] IMPRESSION: No acute findings.
--- NOTE | 2023-02-25 10:54 | W.ED.SOB ---
HPI - SOB/Dyspnea General: Chief Complaint: Shortness of Breath/Dyspnea Stated Complaint: SOB Time Seen by Provider: 02/25/23 10:50 Source: patient Mode of arrival: EMS History of Present Illness: HPI Narrative: 72-year-old female returns to the emergency room against multiple visits recently. She lives at home alone she has very little support we have tried multiple times to convince her to be admitted for care of her breathing and detention placement she usually starts feeling better shortly after arrival here with a nebulizer treatment or 2 ago and wishes to go home and she refuses placement at the detention because she cannot take her dog with her. EMS reports they were contacted for her multiple times since she was last discharged from the ER. This morning she called 911 because she felt like she could not breathe on arrival there her sats are 98% on her usual 2 L by nasal cannula. MD elicited complaint: shortness of breath and cough Pertinent past history: COPD Timing: intermittent Severity: mild Exacerbating factors: exertion and coughing Relieving factors: oxygen, rest and bronchodilators Known history of: COPD Associated symptoms: Deny abdominal pain, chest congestion, chest pain, cough, diaphoresis, dizziness, extremity pain, fever(s), hemoptysis, lightheadedness, myalgias, nausea, orthopnea, palpitations, paresthesias, polydipsia, polyuria, rash, sense of impending doom, syncope or vomiting Treatment prior to arrival: oxygen and bronchodilator Related Data: Home oxygen amount: 2 liters Review of Systems Const: Denies: fever(s) or diaphoresis Card: Denies: chest pain, palpitations, lightheadedness, syncope or orthopnea Resp: Denies: hemoptysis or chest congestion GI: Denies: abdominal pain, nausea or vomiting : Denies: dysuria, urinary frequency or urinary urgency Musc: Denies: extremity pain Skin/Breast: Denies: rash Neuro: Denies: dizziness Endo: Denies: polyuria or polydipsia PFSH ED PFSH: Medical History Fibromyalgia syndrome MDD (major depressive disorder) Delusional disorder Generalized anxiety disorder Opioid contract exists Acute on chronic respiratory failure with hypoxia and hypercapnia Acute respiratory distress Right lower lobe pneumonia Acute respiratory distress Acute exacerbation of chronic obstructive airways disease Chronic respiratory failure with hypoxia Anxiety disorder Panic attacks Asthma-COPD overlap syndrome COPD (chronic obstructive pulmonary disease) Panic anxiety syndrome Surgical History History of appendectomy History of hysterectomy History of cholecystectomy Hx of tonsillectomy Family History Other No pertinent family history Social History Smoking and tobacco/nicotine status: former use of tobacco/nicotine Quit status (tobacco/nicotine): has quit using Year quit tobacco: 2014 - 1PPD x 40 Years Alcohol intake: never Substance/Drug Use: never Lives independently: Yes Household members: none Current occupational status: disabled Pets and animals: Yes Pets & animals: dog(s) Do you think of yourself as: Straight/Heterosexual Current gender identity: Female Physical Exam Const: GENERAL APPEARANCE: cooperative ORIENTATION/CONSCIOUSNESS: Yes awake, Yes oriented to person, Yes oriented to place and Yes oriented to time HENMT: COMMON NORMALS: normocephalic, atraumatic and hearing grossly normal bilaterally HEAD & SCALP: normocephalic and atraumatic Resp: COMMON NORMALS: normal respiratory effort, No retractions and No use of accessory muscles AUSCULTATION: wheezes Cardio: COMMON NORMALS: regular rhythm and No murmurs present (Cardio) RATE: tachycardic RHYTHM: regular rhythm GI: COMMON NORMALS: Soft to palpation and No hepatosplenomegaly present AUSCULTATION: Yes normoactive bowel sounds PALPATION: Yes Soft to palpation, No Tenderness to palpation present (GI), No Guarding due to palpation present (GI) and Yes No hepatosplenomegaly present Extremity: COMMON NORMALS: normal to inspection, capillary refill normal, no clubbing, cyanosis or edema, no calf tenderness and no pedal edema Neuro: SENSORIUM/ORIENTATION: Yes oriented to person, Yes oriented to place and Yes oriented to time Skin: COMMON NORMALS: no rashes or lesions noted GENERAL SKIN EXAM: no rashes or lesions noted Course Vital Signs: Vital signs: Vital Signs Temperature 98.5 F 02/25/23 10:50 Pulse Rate 107 H 02/25/23 11:13 Respiratory Rate 18 02/25/23 11:10 Blood Pressure 130/73 02/25/23 10:50 Pulse Oximetry 95 02/25/23 11:10 Oxygen Delivery Me thod Nasal Cannula 02/25/23 11:10 Oxygen Flow Rate 3 02/25/23 11:10 MDM - SOB/Dyspnea Medical Decision Making Mild exacerbation COPD patient does not wish to be admitted at this time and states she intends to go to the detention. She is now willing to give up position of her pet dog. Discussed with hospitalist orders written will admit. Recommend repeat ABG to see where her carbon dioxide is that she has been turning her oxygen up to 6 at home on 3 she maintains a good O2 sat and probably would do better to be at a lower level initially patient declined ABG we were able to talk to her about explain why it was important she is consented to do it. Dr. Barton is aware the patient orders are written Medical Records I reviewed the patient's medical records. Lab Data I reviewed the patient's lab results. 02/25/23 11:35 02/25/23 11:35 Labs/Radiology: Radiology Impressions Chest X-Ray 02/25/23 10:52 IMPRESSION: No acute findings. Laboratory Results WBC 10.54 10^3/uL (3.29-11.43) 02/25/23 11:35 RBC 4.35 10^6/uL (3.85-5.65) 02/25/23 11:35 Hgb 13.90 g/dL (11.27-16.99) 02/25/23 11:35 Hct 41.3 % (36-47) 02/25/23 11:35 MCV 94.9 fl (85-98) 02/25/23 11:35 MCH 32.0 pg (27-33) 02/25/23 11:35 MCHC 33.7 g/dL (30-55) 02/25/23 11:35 RDW 12.7 % (12.1-15.1) 02/25/23 11:35 Plt Count 383 10^3/cmm (157-399) 02/25/23 11:35 MPV 10.0 fL (7.4-10.4) 02/25/23 11:35 Neut % (Auto) 77.5 % 02/25/23 11:35 Lymph % (Auto) 12.0 % 02/25/23 11:35 Gem % (Auto) 8.2 % 02/25/23 11:35 Eos % (Auto) 1.5 % 02/25/23 11:35 Baso % (Auto) 0.4 % 02/25/23 11:35 Neut # (Auto) 8.18 10^3/uL (1.8-7.7) H 02/25/23 11:35 Lymph # (Auto) 1.3 10^3/uL (0.8-4.8) 02/25/23 11:35 Gem # (Auto) 0.9 10^3/uL (0.2-0.9) 02/25/23 11:35 Eos # (Auto) 0.2 10^3/uL (0.0-0.8) 02/25/23 11:35 Baso # (Auto) 0.0 10^3/uL (0.0-0.1) 02/25/23 11:35 Nucleated RBC % (auto) 0 % 02/25/23 11:35 Nucleated RBCs # 0.0 /100WBC 02/25/23 11:35 Sodium 138 mmol/L (136-145) 02/25/23 11:35 Potassium 3.9 mmol/L (3.5-5.1) 02/25/23 11:35 Chloride 96 mmol/L (98-107) L 02/25/23 11:35 Carbon Dioxide 31 mmol/L (22-29) H 02/25/23 11:35 Anion Gap 14.9 (5-19) 02/25/23 11:35 BUN 20 mg/dL (8-23) 02/25/23 11:35 Creatinine 0.6 mg/dL (0.5-0.9) 02/25/23 11:35 GFR Calculation Not Reportable 02/25/23 11:35 Glucose 138 mg/dL (65-115) H 02/25/23 11:35 Calculated Osmolality 291 mOsm/kg (285-295) 02/25/23 11:35 Calcium 9.9 mg/dL (8.5-10.5) 02/25/23 11:35 Total Bilirubin 1.1 mg/dL (0.15-1.2) 02/25/23 11:35 AST 17 U/L (0-32) 02/25/23 11:35 ALT 11 U/L (0-33) 02/25/23 11:35 Alkaline Phosphatase 73 U/L (35-105) 02/25/23 11:35 Total Protein 6.8 g/dL (6.6-8.7) 02/25/23 11:35 Albumin 4.2 g/dL (3.5-5.2) 02/25/23 11:35 Globulin 2.6 g/dL (1.3-4.6) 02/25/23 11:35 All radiology interpretation(s) finalized by discharge Discharge Plan Discharge Condition: Stable Prescriptions: No Action albuterol sulfate 90 mcg/actuation HFA aerosol inhaler 2 inh INHALATION Q4H PRN (Reason: shortness of breath or wheezing) Qty: 18 0RF Referrals: Kalen Bowser MD [Primary Care Provider] - Coding Level of Care Code ED Terrazzo Polisher Helper for Ji Melgar
[2023-02-25] MEDS: ipratropium-albuterol 3 mL Neb INHALATION ×3 (11:11→20:01)
[2023-02-25 11:54] LABS: Basophils % 0.4 %; Eosinophils # 0.2 10^3/uL (0.0-0.8); Eosinophils % 1.5 %; Hematocrit 41.3 % (36-47); Lymphocytes # 1.3 10^3/uL (0.8-4.8); Mean Corpuscular HGB Conc 33.7 g/dL (30-55); Mean Corpuscular Volume 94.9 fl (85-98); Monocytes # 0.9 10^3/uL (0.2-0.9); Monocytes % 8.2 %; Neutrophils # 8.18 10^3/uL (1.8-7.7); Neutrophils % 77.5 %; Nucleated Red Blood Cells % 0 %; Platelet Count 383 10^3/cmm (157-399); Red Blood Count 4.35 10^6/uL (3.85-5.65); Red Cell Distribution Width 12.7 % (12.1-15.1); White Blood Count 10.54 10^3/uL (3.29-11.43)
[2023-02-25 12:04] LABS: Alanine Aminotransferase 11 U/L (0-33); Albumin Level 4.2 g/dL (3.5-5.2); Alkaline Phosphatase 73 U/L (35-105); Anion Gap 14.9 (5-19); Aspartate Amino Transferase 17 U/L (0-32); Blood Urea Nitrogen 20 mg/dL (8-23); Calcium 9.9 mg/dL (8.5-10.5); Carbon Dioxide 31 mmol/L (22-29); Chloride 96 mmol/L (98-107); Globulin 2.6 g/dL (1.3-4.6); Glucose 138 mg/dL (65-115); Osmolality Calculated 291 mOsm/kg (285-295); Potassium 3.9 mmol/L (3.5-5.1); Sodium 138 mmol/L (136-145); Total Bilirubin 1.1 mg/dL (0.15-1.2); Total Protein 6.8 g/dL (6.6-8.7)
--- NOTE | 2023-02-25 12:13 | PC.PHAR ---
PT STATES SHE TAKES NO MEDICATIONS EXCEPT THE ALBUTEROL INHALER. SHE STATES SHE DID NOT TAKE MEDROL DOSE PK OR IPRATRIPIUM-ALBUTEROL FOR NEBULIZER ORDERED BY DR ENRIQUE ON 02/18/23.
--- NOTE | 2023-02-25 13:44 | PM.HP ---
Providers/Chief Complaint Primary Care Provider: Kalen Bowser MD Chief Complaint: SOB History of Present Illness Socorro Montes De Oca is a 72 year old female with past medical history of COPD, anxiety, panic disorder, oxygen dependency on 6 L at baseline presented to the hospital today with increasing shortness of breath. At this time not having any acute respiratory distress. Denies fever, chest pain, nausea, vomiting, diarrhea, abdominal pain. She is full code. She states she is at the hospital because she wants to go to a penitentiary this time. Patient has had several ER visits in the last few months and says is now ready to go to a penitentiary. She is refusing to have an ABG drawn at this time. Currently on 2 L nasal cannula saturating 97%. He does not have any home medications other than an albuterol. She does live at home alone and has very little support. Patient has been convinced multiple times to be admitted to penitentiary to be cared for however she has refused because she cannot take her dog with her. Medications/Allergies Home Medications Medication Instructions Recorded Confirmed Last Taken Type albuterol sulfate 90 mcg/actuation 2 inh inhalation Q4H PRN shortness 02/13/23 02/25/23 02/24/23 Rx aerosol inhaler of breath or wheezing #18 grams Allergies Allergy/AdvReac Type Severity Reaction Status Date / Time olanzapine [From Zyprexa] Allergy Severe edema Verified 02/21/23 13:29 PFSH Acute PFSH: Medical History Fibromyalgia syndrome MDD (major depressive disorder) Delusional disorder Generalized anxiety disorder Opioid contract exists Acute on chronic respiratory failure with hypoxia and hypercapnia Acute respiratory distress Right lower lobe pneumonia Acute respiratory distress Acute exacerbation of chronic obstructive airways disease Chronic respiratory failure with hypoxia Anxiety disorder Panic attacks Asthma-COPD overlap syndrome COPD (chronic obstructive pulmonary disease) Panic anxiety syndrome Surgical History History of appendectomy History of hysterectomy History of cholecystectomy Hx of tonsillectomy Family History Other No pertinent family history Social History Smoking and tobacco/nicotine status: former use of tobacco/nicotine Quit status (tobacco/nicotine): has quit using Year quit tobacco: 2015 - 1PPD x 40 Years Alcohol intake: never Substance/Drug Use: never Lives independently: Yes Household members: none Current occupational status: disabled Pets and animals: Yes Pets & animals: dog(s) Do you think of yourself as: Straight/Heterosexual Current gender identity: Female Vitals/I&O/Wt Last Vital Signs Temp 98.5 F 02/25/23 10:50 Pulse 97 02/25/23 13:00 Resp 18 02/25/23 13:00 BP 118/69 02/25/23 13:00 Pulse Ox 98 02/25/23 13:00 O2 Del Method Nasal Cannula 02/25/23 11:10 O2 Flow Rate 3 02/25/23 11:10 Weight last 48 hrs Weight 48.988 kg Physical Exam Const: COMMON NORMALS: patient oriented x3 ORIENTATION/CONSCIOUSNESS: Yes awake HENMT: COMMON NORMALS: oropharynx normal Neck/C-Spine: COMMON NORMALS: no JVD Resp: AUSCULTATION: no wheezes and diminished lung sounds (less) Cardio: COMMON NORMALS: no JVD, regular rhythm, S1 normal heart sound present, S2 normal heart sound present and No murmurs present (Cardio) RHYTHM: regular rhythm HEART SOUNDS: S1 normal heart sound present and S2 normal heart sound present GI: COMMON NORMALS: Normal to inspection, nondistended, normoactive bowel sounds present, Soft to palpation and non-tender PALPATION: Yes Soft to palpation Extremity: COMMON NORMALS: no joint enlargement and no pedal edema Neuro: COMMON NORMALS: patient oriented x3 and moves all extremities SENSORIUM/ORIENTATION: Yes alert Data 02/25/23 11:35 02/25/23 11:35 A&P Assessment and plan (1) Chronic respiratory failure with hypoxia: (2) COPD (chronic obstructive pulmonary disease): Qualifiers: COPD type: unspecified COPD Qualified Code(s): J44.9 - Chronic obstructive pulmonary disease, unspecified (3) Acute exacerbation of chronic obstructive airways disease: (4) Anxiety disorder: Plan #COPD exacerbation #End-stage COPD #Anxiety bipolar disorder - CXR does not show pneumonia. ? Solu-Medrol 40 IV twice daily ? DuoNeb every 4 hours scheduled ? Pulmicort twice daily ? Patient no longer is on Daliresp. I will put her back on it. No other home medications at this time either. -From previous discharge summary it is noted that she was on Symbicort, aspirin, clonazepam at home. ? We will need to give her new prescription for her previous home meds at discharge. ? Check procalcitonin ? Placed on azithromycin daily for anti-inflammatory effect. ? Escalate to BiPAP if needed. She is okay with that however does not want to be intubated and does not want CPR. ? Currently on 2 L nasal cannula appearing comfortable. No acute distress ? Placed on regular diet ? Patient refusing an ABG. She was counseled. She says she will think about it. She says she does not want it because it hurts. ?We will admit for placement in penitentiary. PT OT ordered, case management referral ordered. DNR/DNI. As per patient. She is only okay with BiPAP as needed. SCDS, Lovenox 40 daily Attestations Medical Necessity Statement*: Admitted for COPD exacerbation and placement in penitentiary. Diagnoses Chronic respiratory failure with hypoxia J96.11 COPD (chronic obstructive pulmonary disease) J44.9 COPD type: unspecified COPD Acute exacerbation of chronic obstructive airways disease J44.1 Anxiety disorder F41.9
[2023-02-25 14:20] LABS: Procalcitonin 0.04 ng/mL (0-0.5); Thyroid Stimulating Hormone 5.96 uIU/mL (0.27-4.20)
--- NOTE | 2023-02-25 16:18 | PC.NURSE ---
Patient states Dr. Murray has Oxygen up to 6L. Will go up 4 on home O2 in assessment.
[2023-02-25] MEDS: enoxaparin 40 mg/0.4 mL Syringe SUBCUT (18:01)
[2023-02-25] MEDS: azithromycin 500 MG in sodium chloride 0.9% 250 ML 250 MG IV (18:01)
[2023-02-25] MEDS: methylPREDNISolone sod succ 40 mg/mL INJ IVP (18:02)
[2023-02-25 18:29] LABS: Add Urine Microscopic? YES; Bilirubin Urine Neg (Negative); Blood Urine Neg (Negative); Glucose Urine UA Norm (Normal); Ketones Urine 1+ (Negative); Leukocyte Esterase Urine 2+ (Negative); Nitrate Urine Negative (Negative); Protein Urine Neg (Negative); Specific Gravity, Urine 1.025 (1.005-1.030); Urine Appearance Clear (CLEAR); Urine Color Yellow (Yellow); Urobilinogen Urine 1 mg/dL (Negative); pH Urine 5 (5-7)
[2023-02-25 18:30] LABS: Add Urine Culture? No; Bacteria Urine 1+ /hpf; Mucus Urine 2+ /hpf; Squamous Epithelial Cell Urine RARE /hpf (0-5)
[2023-02-25 18:40] LABS: Adenovirus Not Detected (NOT DETECT); Chlamydia Pneumoniae Not Detected (NOT DETECT); Coronavirus 229E,HKU1,NL63,OC4 Not Detected (NOT DETECT); Human Metapneumovirus Not Detected (NOT DETECT); Human Rhinovirus/Enterovirus Not Detected (NOT DETECT); Influenza A Not Detected (NOT DETECT); Influenza A H1 Not Detected (NOT DETECT); Influenza A H1-2009 Not Detected (NOT DETECT); Influenza A H3 Not Detected (NOT DETECT); Influenza B Not Detected (NOT DETECT); Mycoplasma Pneumoniae Not Detected (NOT DETECT); Parainfluenza Virus Type 1 Not Detected (NOT DETECT); Parainfluenza Virus Type 2 Not Detected (NOT DETECT); Parainfluenza Virus Type 3 Not Detected (NOT DETECT); Parainfluenza Virus Type 4 Not Detected (NOT DETECT); Respiratory Syncytial Virus A Not Detected (NOT DETECT); Respiratory Syncytial Virus B Not Detected (NOT DETECT); SARS-COV-2 Not Detected (NOT DETECT)
[2023-02-25] MEDS: acetaminophen 325 mg Tablet 650 MG PO (20:08)
[2023-02-26] VITALS (14 sets, daily range): BP systolic 157–166; BP diastolic 76–80; PULSE 75–100; RESP 14–22; TEMP 36.6–36.9; O2SAT 93–98; BMI 22.4
[2023-02-26] MEDS: methylPREDNISolone sod succ 40 mg/mL INJ IVP ×2 (04:50→16:36)
[2023-02-26] MEDS: acetaminophen 325 mg Tablet 650 MG PO ×2 (06:20→19:00)
[2023-02-26] MEDS: roflumilast 500 mcg Tablet PO (08:57)
[2023-02-26] MEDS: ipratropium-albuterol 3 mL Neb INHALATION ×4 (09:01→20:32)
[2023-02-26] MEDS: enoxaparin 40 mg/0.4 mL Syringe SUBCUT (16:36)
[2023-02-26] MEDS: azithromycin 500 MG in sodium chloride 0.9% 250 ML 250 MG IV (16:36)
--- NOTE | 2023-02-26 21:39 | P.PN_ITS ---
Subjective 2 Subjective: Reports that her breathing is better. No new compplaints today. SHe has Wheezing B/L Medications: Reviewed: Yes Vitals/I&O/Wt Last Vital Signs Temp 98.1 F 02/26/23 19:14 Pulse 86 02/26/23 20:00 Resp 19 H 02/26/23 20:00 BP 157/76 02/26/23 19:14 Pulse Ox 96 02/26/23 20:00 O2 Del Method Nasal Cannula 02/26/23 20:00 O2 Flow Rate 3 02/26/23 20:00 02/26/23 02/26/23 02/26/23 06:59 14:59 22:59 Intake Total 360 / 360 250 / 610 Balance 360 / 360 250 / 610 Weight last 48 hrs Weight 52.027 kg Weight 50.122 kg Weight 48.988 kg Physical Exam 2 Narrative: General: No acute distress, AO x3, chronically ill appearing HEENT: PERRLA, pupils bilaterally equal and reactive, pallors not present Chest: Normal vesicular breath sounds, no added sounds, equal good air entry bilaterally CVS: S1-S2 regular, no murmurs, no tachycardia, no gallops, no rubs Abdomen: Soft, nontender, no organomegaly, bowel sounds present Neuro: No focal deficits, no facial deformity, AO x3, power 5/5 in all limbs Data 02/25/23 11:35 02/25/23 11:35 A&P Assessment and plan (1) Chronic respiratory failure with hypoxia: (2) COPD (chronic obstructive pulmonary disease): Qualifiers: COPD type: unspecified COPD Qualified Code(s): J44.9 - Chronic obstructive pulmonary disease, unspecified (3) Acute exacerbation of chronic obstructive airways disease: (4) Anxiety disorder: Plan 72 year old female with past medical history of severe COPD, former smoker quit in 2004, anxiety, panic disorder chronically on 6 L of oxygen supplementation, hypothyroidism on chronic opiate therapy, recurrent admissions for respiratory distress presented to the ER with worsening respiratory status. # Acute on chronic hypoxic hypercapneic respiratory failure It appears she refused ABG at arival Has diffuse wheezing on exam Typically uses between 2 to 6lpm at baseline RVP negative CXR without consolidation Overall clinical impression that of acute on chronic COPD exacerbation Continue duoneb scheduled Add budesonide q12h Continue iv steroids D/c ceftriaxone as no evidence of pneumonia Supplemental 02 to maintain 02 sat 90-92% Dipso: Planning ongoing. She lives at home alone. Unable to stay out of the hospital as evidenced by recurrent ER visits. Poor social support at home. DNR/DNI. As per patient. She is only okay with BiPAP as needed. SCDS, Lovenox 40 daily Attestations 2 Medical Necessity Statement*: change to inpatient admission. Need for iv steroids, continued wheezing today, add budesonide scheudle dinhalation Coding Level of Care Code Acute Code for Chg Fwd Diagnoses Chronic respiratory failure with hypoxia J96.11 COPD (chronic obstructive pulmonary disease) J44.9 COPD type: unspecified COPD Acute exacerbation of chronic obstructive airways disease J44.1 Anxiety disorder F41.9
[2023-02-27] VITALS (13 sets, daily range): BP systolic 111–180; BP diastolic 74–97; PULSE 86–122; RESP 16–24; TEMP 36.6–37; O2SAT 94–99
[2023-02-27] MEDS: temazepam 15 mg Capsule PO (00:11)
[2023-02-27] MEDS: acetaminophen 325 mg Tablet 650 MG PO ×3 (02:47→19:19)
[2023-02-27 05:09] LABS: Basophils % 0.2 %; Hematocrit 42.2 % (36-47); Lymphocytes # 0.9 10^3/uL (0.8-4.8); Mean Corpuscular HGB Conc 32.5 g/dL (30-55); Mean Corpuscular Hemoglobin 32.2 pg (27-33); Mean Corpuscular Volume 99.3 fl (85-98); Mean Platelet Volume 10.4 fL (7.4-10.4); Monocytes # 0.9 10^3/uL (0.2-0.9); Monocytes % 4.8 %; Neutrophils # 16.65 10^3/uL (1.8-7.7); Neutrophils % 89.5 %; Nucleated Red Blood Cells % 0 %; Platelet Count 379 10^3/cmm (157-399); Red Blood Count 4.25 10^6/uL (3.85-5.65); White Blood Count 18.62 10^3/uL (3.29-11.43)
[2023-02-27] MEDS: methylPREDNISolone sod succ 40 mg/mL INJ IVP ×2 (05:15→15:22)
[2023-02-27 05:35] LABS: Alanine Aminotransferase 11 U/L (0-33); Albumin Level 4.4 g/dL (3.5-5.2); Alkaline Phosphatase 77 U/L (35-105); Aspartate Amino Transferase 17 U/L (0-32); Blood Urea Nitrogen 20 mg/dL (8-23); Calcium 10.1 mg/dL (8.5-10.5); Carbon Dioxide 28 mmol/L (22-29); Chloride 98 mmol/L (98-107); Globulin 2.1 g/dL (1.3-4.6); Glucose 110 mg/dL (65-115); Osmolality Calculated 295 mOsm/kg (285-295); Sodium 141 mmol/L (136-145); Total Bilirubin 0.7 mg/dL (0.15-1.2); Total Protein 6.5 g/dL (6.6-8.7)
[2023-02-27] MEDS: roflumilast 500 mcg Tablet PO (08:09)
[2023-02-27] MEDS: ipratropium-albuterol 3 mL Neb INHALATION ×4 (08:22→20:11)
--- NOTE | 2023-02-27 09:00 | PC.CHAP ---
Pastoral Care Encounter/Spiritual Assessment Type of Contact [] Declined transcripter visit [] Patient/Family/Request visit [] Outpatient visit [] Follow-up visit [] Physician referral [] Code/Alert [x] Routine visit [] Staff referral [] Actively dying [] Patient sleeping [] Family support [] [] Out of room [] Palliative care [] [] Receiving care in room [] Pre-surgical visit [] Trauma [] Long length of stay [] ICU visit [] Other: Relational/Emotional Strength [x] Patient feels connected with others/family/visitors/staff [] Distress [] Loneliness/isolation [] Abandonment Spirituality of Patient [x] Person of Rylee [] Attends Jew of their Rylee [x] Believes in Prayer [] Reads Bible or Amish materials [] There are Spiritual issues to be addressed Photo Finisher Interventions [x] Prayer [x] Active listening [] Non-anxious presence [x] Spiritual/emotional support [] Crisis/trauma care [] Spiritual counseling [] Bereavement support [] Provided bereavement packet [] Provided Bible/devotional materials [] Provided toy/stuffed animal, coloring book to patient or family member [] Provided Communion [] Anointing/[place] [] Salvation [x] Completed spiritual assessment [] Other: Impact on Illness or Injury [] Angry [] Fearful [] Anxious [] Often cries [] Exhaustion [] Unable to work [] Unable to attend yazidi [] Unable to walk/stand [] Unable to read [] Unable to drive [] Unable to eat/drink [] Unable to sleep [] Unable to be with family [] Patient intubated [] Other: Summary Time spent with patient 5 min
--- NOTE | 2023-02-27 13:30 | P.PN_ITS ---
Subjective 2 Subjective: Ms. Montes De Oca is very anxious today. Requesting that her home dose of Klonopin be restarted. I do not see it on her list of home medications however she tells me that she takes Klonopin 3 times a day for severe anxiety. WBC count trending up to 18 today, suspect margination from steroids. Afebrile and hemodynamically stable otherwise.Hypertensive to systolic blood pressure of 1 70-1 80 today. Medications: Reviewed: Yes Vitals/I&O/Wt Last Vital Signs Temp 98.3 F 02/27/23 07:56 Pulse 120 H 02/27/23 11:52 Resp 17 02/27/23 11:52 BP 180/97 02/27/23 11:52 Pulse Ox 97 02/27/23 11:52 O2 Del Method Nasal Cannula 02/27/23 11:52 O2 Flow Rate 3 02/27/23 11:52 02/26/23 02/27/23 02/27/23 22:59 06:59 14:59 Intake Total 250 / 610 240 / 240 Balance 250 / 610 240 / 240 Weight last 48 hrs Weight 49.442 kg Weight 52.027 kg Weight 50.122 kg Physical Exam 2 Narrative: General: No acute distress, AO x3, chronically ill appearing HEENT: PERRLA, pupils bilaterally equal and reactive, pallors not present Chest: Wheezing to auscultation bilaterally CVS: S1-S2 regular, no murmurs, no tachycardia, no gallops, no rubs Abdomen: Soft, nontender, no organomegaly, bowel sounds present Neuro: No focal deficits, no facial deformity, AO x3, power 5/5 in all limbs Data 02/27/23 04:00 02/27/23 04:00 Micro: Microbiology 02/26/23 15:20 Gram Stain - Final Sputum - Expectorated Sputum Sputum Culture - Preliminary A&P Assessment and plan (1) Chronic respiratory failure with hypoxia: (2) COPD (chronic obstructive pulmonary disease): Qualifiers: COPD type: unspecified COPD Qualified Code(s): J44.9 - Chronic obstructive pulmonary disease, unspecified (3) Acute exacerbation of chronic obstructive airways disease: (4) Anxiety disorder: Plan 72 year old female with past medical history of severe COPD, former smoker quit in 2004, anxiety, panic disorder chronically on 6 L of oxygen supplementation, hypothyroidism on chronic opiate therapy, recurrent admissions for respiratory distress presented to the ER with worsening respiratory status. # Acute on chronic hypoxic hypercapneic respiratory failure It appears she refused ABG at arrival Has diffuse wheezing on exam, however this is improving over yesterday. Typically uses between 2 to 6lpm at baseline, today she is on 3 L/min. RVP negative CXR without consolidation Overall clinical impression that of acute on chronic COPD exacerbation Continue duoneb scheduled Add budesonide q12h Continue iv steroids, taper down dose from methylprednisolone 40 mg IV every 12 hours to 40 mg IV daily Supplemental 02 to maintain 02 sat 90-92% # Uncontrolled hypertension. Today systolic blood pressure noted to be ranging between 1 70-1 80. Review of prior numbers shows that patient's systolic blood pressure is between 1 33-1 64 systolic. Add amlodipine 10 mg daily Her chart says that she is on chronic opiates, however I do not see any on her medication list currently. She may potentially be going to withdrawal if this is truly the case. Obtain medication list from pharmacy # Severe anxiety and panic attacks. Start Klonopin 0.5 mg 3 times daily as needed for anxiety. Add fluoxetine 10 mg p.o. daily. Attempt to obtain her past medication list Patient to resume her usual medications if she is on any. Dipso: Planning ongoing. She lives at home alone. Unable to stay out of the hospital as evidenced by recurrent ER visits. Poor social support at home. Patient was discharged from the hospital on November 24, 2022 and since then has had 16 ER visits and now admission on February 25, 2023. Clearly shows that patient is unable to care for herself at home. Safe disposition planning is ongoing. Encourage ambulation, participate with PT OT. DNR/DNI. As per patient. She is only okay with BiPAP as needed. SCDS, Lovenox 40 daily PUD prophylaxis: Protonix 40 mg p.o. daily while on steroids. Attestations 2 Medical Necessity Statement*: Continued admission for COPD exacerbation, uncontrolled hypertension, severe panic attack today, appropriate disposition planning ongoing. Coding Level of Care Code Acute Code for Chg Fwd Moderate MDM includes number and complexity of problems actively addressed during encounter, amount and/or complexity of data reviewed/ordered and described risk of complication, morbidity or mortality of management as documented Diagnoses Chronic respiratory failure with hypoxia J96.11 COPD (chronic obstructive pulmonary disease) J44.9 COPD type: unspecified COPD Acute exacerbation of chronic obstructive airways disease J44.1 Anxiety disorder F41.9
[2023-02-27] MEDS: amlodipine 10 mg Tablet PO (15:22)
[2023-02-27] MEDS: enoxaparin 40 mg/0.4 mL Syringe SUBCUT (16:29)
[2023-02-27] MEDS: CLONazepam 0.5 mg Tablet PO (16:29)
[2023-02-27] MEDS: azithromycin 500 MG in sodium chloride 0.9% 250 ML 250 MG IV (16:29)
[2023-02-27] MEDS: budesonide 0.5 mg/2 mL Neb INHALATION (20:11)
[2023-02-28] VITALS (13 sets, daily range): BP systolic 114–147; BP diastolic 63–89; PULSE 72–124; RESP 16–24; TEMP 36.3–37.1; O2SAT 95–98
[2023-02-28] MEDS: acetaminophen 325 mg Tablet 650 MG PO ×4 (00:32→21:47)
[2023-02-28] MEDS: CLONazepam 0.5 mg Tablet PO ×4 (00:33→21:47)
[2023-02-28 04:39] LABS: Basophils % 0.1 %; Eosinophils % 0.1 %; Hematocrit 38.2 % (36-47); Lymphocytes # 1.1 10^3/uL (0.8-4.8); Lymphocytes % 5.9 %; Mean Corpuscular HGB Conc 33.2 g/dL (30-55); Mean Corpuscular Hemoglobin 32.1 pg (27-33); Mean Corpuscular Volume 96.5 fl (85-98); Mean Platelet Volume 10.3 fL (7.4-10.4); Monocytes # 1.1 10^3/uL (0.2-0.9); Neutrophils # 16.39 10^3/uL (1.8-7.7); Neutrophils % 87.4 %; Nucleated Red Blood Cells % 0 %; Platelet Count 343 10^3/cmm (157-399); Red Blood Count 3.96 10^6/uL (3.85-5.65); Red Cell Distribution Width 12.8 % (12.1-15.1); White Blood Count 18.76 10^3/uL (3.29-11.43)
[2023-02-28 05:07] LABS: Alanine Aminotransferase 8 U/L (0-33); Albumin Level 3.8 g/dL (3.5-5.2); Alkaline Phosphatase 67 U/L (35-105); Anion Gap 13.7 (5-19); Aspartate Amino Transferase 12 U/L (0-32); Blood Urea Nitrogen 16 mg/dL (8-23); Calcium 9.5 mg/dL (8.5-10.5); Carbon Dioxide 29 mmol/L (22-29); Chloride 100 mmol/L (98-107); Globulin 1.8 g/dL (1.3-4.6); Glucose 107 mg/dL (65-115); Osmolality Calculated 290 mOsm/kg (285-295); Potassium 3.7 mmol/L (3.5-5.1); Sodium 139 mmol/L (136-145); Total Bilirubin 0.6 mg/dL (0.15-1.2); Total Protein 5.6 g/dL (6.6-8.7)
[2023-02-28] MEDS: ipratropium-albuterol 3 mL Neb INHALATION ×4 (07:51→20:35)
[2023-02-28] MEDS: budesonide 0.5 mg/2 mL Neb INHALATION ×2 (07:51→20:35)
[2023-02-28] MEDS: pantoprazole DR 40 mg Tablet PO (08:08)
[2023-02-28] MEDS: roflumilast 500 mcg Tablet PO (08:08)
[2023-02-28] MEDS: amlodipine 10 mg Tablet PO (08:08)
[2023-02-28] MEDS: fluoxetine 10 mg Capsule PO (08:08)
--- NOTE | 2023-02-28 11:45 | PC.SOCIAL ---
Pg 2 IMM Explained to pt Pg 2 IMM. No questions voiced. Provided pt a copy. Initialed, dated, & timed a copy & placed in chart.
[2023-02-28] MEDS: methylPREDNISolone sod succ 40 mg/mL INJ IVP (14:06)
--- NOTE | 2023-02-28 15:51 | P.PN_ITS ---
Subjective 2 Subjective: Breathing is much better today. Anxiety better controlled after starting fluoxetine and Klonopin. Tachycardic with 125. Blood pressure better controlled after adding amlodipine. Medications: Reviewed: Yes Vitals/I&O/Wt Last Vital Signs Temp 97.4 F L 02/28/23 12:00 Pulse 124 H 02/28/23 15:45 Resp 22 H 02/28/23 15:45 BP 126/82 02/28/23 12:00 Pulse Ox 98 02/28/23 15:45 O2 Del Method Nasal Cannula 02/28/23 15:45 O2 Flow Rate 3 02/28/23 15:45 02/28/23 02/28/23 02/28/23 06:59 14:59 22:59 Intake Total 480 / 480 Balance 480 / 480 Weight last 48 hrs Weight 52.362 kg Weight 49.442 kg Physical Exam 2 Narrative: General: No acute distress, AO x3, chronically ill appearing HEENT: PERRLA, pupils bilaterally equal and reactive, pallors not present Chest: Wheezing to auscultation bilaterally CVS: S1-S2 regular, no murmurs, no tachycardia, no gallops, no rubs Abdomen: Soft, nontender, no organomegaly, bowel sounds present Neuro: No focal deficits, no facial deformity, AO x3, power 5/5 in all limbs Data 02/28/23 04:26 02/28/23 04:26 Micro: Microbiology 02/26/23 15:20 Gram Stain - Final Sputum - Expectorated Sputum Sputum Culture - Preliminary A&P Assessment and plan (1) Chronic respiratory failure with hypoxia: (2) COPD (chronic obstructive pulmonary disease): Qualifiers: COPD type: unspecified COPD Qualified Code(s): J44.9 - Chronic obstructive pulmonary disease, unspecified (3) Acute exacerbation of chronic obstructive airways disease: (4) Anxiety disorder: Plan 72 year old female with past medical history of severe COPD, former smoker quit in 2004, anxiety, panic disorder chronically on 6 L of oxygen supplementation, hypothyroidism on chronic opiate therapy, recurrent admissions for respiratory distress presented to the ER with worsening respiratory status. # Acute on chronic hypoxic hypercapneic respiratory failure It appears she refused ABG at arrival Wheezing is improving today. She is back at her baseline 3 L/min supplemental O2. Discontinue IV steroids. Changed to prednisone 40 mg p.o. daily. RVP negative CXR without consolidation Overall clinical impression that of acute on chronic COPD exacerbation Reviewed past notes from pulmonology. Patient had seen Dr. Bowles approximately 2 years ago. She has not had a PFT since 2011. 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 It appears she was not able to tolerate Spiriva at that time. Currently she only uses albuterol inhaler as needed. Extensively counseled that she will need to use combination inhalers with LABA/inhaled steroid plus LAMA to have sustained relief from her symptoms. Albuterol as needed would be suboptimal in managing her COPD. Will also resume her on low-dose steroids once she is done with the current exacerbation. Per review of past notes it appears home vent versus BiPAP was also being considered, I am uncertain if this was ever able to be set up for the patient.Follow up with pulmonology clinic for the same # Uncontrolled hypertension. Blood pressure is much better controlled after addition of amlodipine, however patient is noted to be tachycardic with heart rate ranging between 90-1 20. Discontinue amlodipine. Start metoprolol 25 mg p.o. twice daily and monitor for response on heart rate. Her chart says that she is on chronic opiates, however review of medication list shows that she is not on any opiates chronically. Patient denies this as well. She takes Klonopin and fluoxetine for anxiety. Previously all of her medications were being refilled by her PCP Dr. Maria, however he has since retired and she is not followed with a new PCP due to lack of transportation. # Severe anxiety and panic attacks. Continue Klonopin 0.5 mg 3 times daily as needed for anxiety. Increase fluoxetine 40 mg p.o. daily at home dosing Dipso: Planning ongoing. She lives at home alone. Unable to stay out of the hospital as evidenced by recurrent ER visits. Poor social support at home. Patient was discharged from the hospital on November 24, 2022 and since then has had 16 ER visits and now admission on February 25, 2023. Clearly shows that patient is unable to care for herself at home. Patient was planning to transition to SNF, however has now changed her mind. She states that she has a neighbor who is willing to help her take care of her daily needs. We have also been able to set up home health for her and she will likely have some help in this regard. I asked her how she plans to follow-up with with her PCP if she has no means of transportation. She states that her neighbor has indicated she will be able to help her with her transportation needs. She wants to go home instead of transitioning to SNF when she is ready. Her neighbor is helping her get a new bed, new mattress and willing to drive her to several of her appointments. This appears to be a safe disposition plan for now. Encourage ambulation, participate with PT OT. DNR/DNI. As per patient. She is only okay with BiPAP as needed. SCDS, Lovenox 40 daily PUD prophylaxis: Protonix 40 mg p.o. daily while on steroids. Attestations 2 Medical Necessity Statement*: Discontinue IV azithromycin. Change IV steroids to oral. Start metoprolol. Anticipate discharge in the upcoming 24 hours if patient responds well to these changes. Coding Level of Care Code Acute Code for [facility] Diagnoses Chronic respiratory failure with hypoxia J96.11 COPD (chronic obstructive pulmonary disease) J44.9 COPD type: unspecified COPD Acute exacerbation of chronic obstructive airways disease J44.1 Anxiety disorder F41.9
[2023-02-28] MEDS: metoprolol tartrate 1 mg/1 mL SDV 5 mL 2.5 MG IVP (17:40)
[2023-02-28] MEDS: enoxaparin 40 mg/0.4 mL Syringe SUBCUT (17:41)
[2023-02-28] MEDS: metoprolol tartrate 25 mg Tablet 12.5 MG PO (21:48)
[2023-03-01] VITALS (7 sets, daily range): BP systolic 105–137; BP diastolic 63–75; PULSE 70–100; RESP 15–20; TEMP 36.4–36.9; O2SAT 92–100; BMI 22.5
[2023-03-01] MEDS: ipratropium-albuterol 3 mL Neb INHALATION ×2 (07:20→11:00)
[2023-03-01] MEDS: budesonide 0.5 mg/2 mL Neb INHALATION (07:20)
[2023-03-01] MEDS: fluoxetine 10 mg Capsule PO (08:15)
[2023-03-01] MEDS: metoprolol tartrate 25 mg Tablet 12.5 MG PO (08:15)
[2023-03-01] MEDS: roflumilast 500 mcg Tablet PO (08:15)
[2023-03-01] MEDS: CLONazepam 0.5 mg Tablet PO (08:15)
[2023-03-01] MEDS: pantoprazole DR 40 mg Tablet PO (08:15)
[2023-03-01] MEDS: predniSONE 20 mg Tablet 40 MG PO (08:16)
[2023-03-01] MEDS: acetaminophen 325 mg Tablet 650 MG PO (08:16)
--- NOTE | 2023-03-01 12:19 | PC.NURSE ---
Friend contact for patient is [place] [phone]
--- NOTE | 2023-03-01 12:34 | PM.DCS ---
Discharge Providers Date of Admission: 02/26/23 21:45 Date of Discharge: March 01, 2023 Attending Provider at Admission: Roopa Hearn MD Attending Provider at Discharge: Ellie Chandra MD Primary Care Provider: Kalen Bowser MD Diagnoses at Discharge Discharge Diagnosis (1) Chronic respiratory failure with hypoxia: Status: Acute (2) COPD (chronic obstructive pulmonary disease): Status: Acute Qualifiers: COPD type: unspecified COPD Qualified Code(s): J44.9 - Chronic obstructive pulmonary disease, unspecified (3) Acute exacerbation of chronic obstructive airways disease: Status: Resolved (4) Anxiety disorder: Status: Inactive Reason for Visit Reason for Visit: SOB Hospital Course Hospital Course 72 year old female with past medical history of severe COPD, former smoker quit in 2004, anxiety, panic disorder chronically on 6 L of oxygen supplementation, hypothyroidism , recurrent admissions for respiratory distress presented to the ER with worsening respiratory status. # Acute on chronic hypoxic hypercapneic respiratory failure It appears she refused ABG at arrival She was treated for acute on chronic COPD exacerbation. She received treatment with IV steroids and scheduled inhalation with DuoNebs and budesonide. Transition to oral prednisone taper at the time of discharge. Reviewed past notes from pulmonology. Patient had seen Dr. Bowles approximately 2 years ago. She has not had a PFT since 2011. 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 Currently she only uses albuterol inhaler as needed. Extensively counseled that she will need to use combination inhalers with LABA/inhaled steroid plus LAMA to have sustained relief from her symptoms. Albuterol as needed would be suboptimal in managing her COPD. Will also resume her on low-dose steroids once she is done with the current exacerbation add prednisone 5 mg every other day as recommended previously by pulmonology. Per review of past notes it appears home vent versus BiPAP was also being considered, I am uncertain if this was ever able to be set up for the patient.Follow up with pulmonology clinic for the same, she has missed her last few appointments with Dr. Lopes due to lack of having a ride. She states that her neighbor is now heavily involved in her care and will be taking care of of assisting her with medical needs. # Uncontrolled hypertension. Started metoprolol 12. 5 mg p.o. twice daily inpatient for management of high blood pressure and also high heart rate. Her chart says that she is on chronic opiates, however review of medication list shows that she is not on any opiates chronically. Patient denies this as well. She takes Klonopin and fluoxetine for anxiety. # Severe anxiety and panic attacks. Continue Klonopin 0.5 mg 3 times daily as needed for anxiety. Continue fluoxetine 40 mg p.o. daily at home dosing Dipso: She lives at home alone. Unable to stay out of the hospital as evidenced by recurrent ER visits. Poor social support at home. Patient was planning to transition to SNF, however has now changed her mind. She states that she has a neighbor who is willing to help her take care of her daily needs. We have also been able to set up home health for her and she will likely have some help in this regard. I asked her how she plans to follow-up with with her PCP if she has no means of transportation. She states that her neighbor has indicated she will be able to help her with her transportation needs. She wishes to return home. She is discharged today in improved condition. Chronically somewhat ill because of severe COPD. Physical Exam Narrative: General: No acute distress, AO x3 HEENT: PERRLA, pupils bilaterally equal and reactive, pallors not present Chest: Normal vesicular breath sounds, no added sounds, equal good air entry bilaterally CVS: S1-S2 regular, no murmurs, no tachycardia, no gallops, no rubs Abdomen: Soft, nontender, no organomegaly, bowel sounds present Neuro: No focal deficits, no facial deformity, AO x3, power 5/5 in all limbs Discharge Data Studies Completed and Pending Completed Studies During Hospitalization Category Date Time Status XR chest 1V portable [id number] Stat Exams 02/25/23 10:52 Completed Radiology Impressions Chest X-Ray 02/25/23 10:52 IMPRESSION: No acute findings. Laboratory Results WBC 18.76 10^3/uL (3.29-11.43) H 02/28/23 04:26 RBC 3.96 10^6/uL (3.85-5.65) 02/28/23 04:26 Hgb 12.70 g/dL (11.27-16.99) 02/28/23 04:26 Hct 38.2 % (36-47) 02/28/23 04:26 MCV 96.5 fl (85-98) 02/28/23 04:26 MCH 32.1 pg (27-33) 02/28/23 04:26 MCHC 33.2 g/dL (30-55) 02/28/23 04:26 RDW 12.8 % (12.1-15.1) 02/28/23 04:26 Plt Count 343 10^3/cmm (157-399) 02/28/23 04:26 MPV 10.3 fL (7.4-10.4) 02/28/23 04:26 Neut % (Auto) 87.4 % 02/28/23 04:26 Lymph % (Auto) 5.9 % 02/28/23 04:26 [place] % (Auto) 6.0 % 02/28/23 04:26 Eos % (Auto) 0.1 % 02/28/23 04:26 Baso % (Auto) 0.1 % 02/28/23 04:26 Neut # (Auto) 16.39 10^3/uL (1.8-7.7) H 02/28/23 04:26 Lymph # (Auto) 1.1 10^3/uL (0.8-4.8) 02/28/23 04:26 [place] # (Auto) 1.1 10^3/uL (0.2-0.9) H 02/28/23 04:26 Eos # (Auto) 0.0 10^3/uL (0.0-0.8) 02/28/23 04:26 Baso # (Auto) 0.0 10^3/uL (0.0-0.1) 02/28/23 04:26 Nucleated RBC % (auto) 0 % 02/28/23 04:26 Nucleated RBCs # 0.0 /100WBC 02/28/23 04:26 Sodium 139 mmol/L (136-145) 02/28/23 04:26 Potassium 3.7 mmol/L (3.5-5.1) 02/28/23 04:26 Chloride 100 mmol/L (98-107) 02/28/23 04:26 Carbon Dioxide 29 mmol/L (22-29) 02/28/23 04:26 Anion Gap 13.7 (5-19) 02/28/23 04:26 BUN 16 mg/dL (8-23) 02/28/23 04:26 Creatinine 0.5 mg/dL (0.5-0.9) 02/28/23 04:26 GFR Calculation Not Reportable 02/28/23 04:26 Glucose 107 mg/dL (65-115) 02/28/23 04:26 Calculated Osmolality 290 mOsm/kg (285-295) 02/28/23 04:26 Calcium 9.5 mg/dL (8.5-10.5) 02/28/23 04:26 Total Bilirubin 0.6 mg/dL (0.15-1.2) 02/28/23 04:26 AST 12 U/L (0-32) 02/28/23 04:26 ALT 8 U/L (0-33) 02/28/23 04:26 Alkaline Phosphatase 67 U/L (35-105) 02/28/23 04:26 Total Protein 5.6 g/dL (6.6-8.7) L 02/28/23 04:26 Albumin 3.8 g/dL (3.5-5.2) 02/28/23 04:26 Globulin 1.8 g/dL (1.3-4.6) 02/28/23 04:26 Procalcitonin 0.04 ng/mL (0-0.5) 02/25/23 11:35 TSH 5.96 uIU/mL (0.27-4.20) H 02/25/23 11:35 Urine Color Yellow (Yellow) 02/25/23 17:55 Urine Appearance Clear (CLEAR) 02/25/23 17:55 Urine pH 5 (5-7) 02/25/23 17:55 Ur Specific [place] 1.025 (1.005-1.030) 02/25/23 17:55 Urine Protein Neg (Negative) 02/25/23 17:55 Urine Glucose (UA) Norm (Normal) 02/25/23 17:55 Urine Ketones 1+ (Negative) H 02/25/23 17:55 Urine Blood Neg (Negative) 02/25/23 17:55 Urine Nitrate Negative (Negative) 02/25/23 17:55 Urine Bilirubin Neg (Negative) 02/25/23 17:55 Urine Urobilinogen 1 mg/dL (Negative) H 02/25/23 17:55 Ur Leukocyte Esterase 2+ (Negative) H 02/25/23 17:55 Urine RBC None /hpf (0-2) 02/25/23 17:55 Urine WBC 5-10 /hpf (0-5) H 02/25/23 17:55 Ur Squamous Epith Cells Rare /hpf (0-5) 02/25/23 17:55 Amorphous Sediment Not Reportable 02/25/23 17:55 Urine Bacteria 1+ /hpf (NONE) H 02/25/23 17:55 Urine Mucus 2+ /hpf 02/25/23 17:55 Nasal Influ A H1 2009 PCR Not detected (NOT DETECT) 02/25/23 14:46 Adenovirus (PCR) Not detected (NOT DETECT) 02/25/23 14:46 C. pneumoniae DNA (PCR) Not detected (NOT DETECT) 02/25/23 14:46 Coronavirus 229E (PCR) Not detected (NOT DETECT) 02/25/23 14:46 Human Metapneumovir PCR Not detected (NOT DETECT) 02/25/23 14:46 Influenza A (H1) PCR Not detected (NOT DETECT) 02/25/23 14:46 Influenza A (H3) PCR Not detected (NOT DETECT) 02/25/23 14:46 Influenza Type A (PCR) Not detected (NOT DETECT) 02/25/23 14:46 Influenza Type B (PCR) Not detected (NOT DETECT) 02/25/23 14:46 M. pneumoniae (PCR) Not detected (NOT DETECT) 02/25/23 14:46 Parainfluenza 1 (PCR) Not detected (NOT DETECT) 02/25/23 14:46 Parainfluenza 2 (PCR) Not detected (NOT DETECT) 02/25/23 14:46 Parainfluenza 3 (PCR) Not detected (NOT DETECT) 02/25/23 14:46 Parainfluenza 4 (PCR) Not detected (NOT DETECT) 02/25/23 14:46 RSV Type A (PCR) Not detected (NOT DETECT) 02/25/23 14:46 RSV Type B (PCR) Not detected (NOT DETECT) 02/25/23 14:46 Entero/Rhino (PCR) Not detected (NOT DETECT) 02/25/23 14:46 SARS-CoV-2 (PCR) Not detected (NOT DETECT) 02/25/23 14:46 Vitals Last Vital Signs Temp 97.6 F 03/01/23 11:36 Pulse 79 03/01/23 11:36 Resp 15 03/01/23 11:36 BP 105/63 03/01/23 11:36 Pulse Ox 97 03/01/23 11:36 O2 Del Method Nasal Cannula 03/01/23 11:36 O2 Flow Rate 3 03/01/23 11:00 Discharge Plan Discharge Patient Disposition: Home Health Service Condition: Stable Prescriptions: New pantoprazole 40 mg Tablet,Delayed Release (Dr/Ec) 40 mg PO DAILY 30 Days Qty: 30 0RF Advair Diskus 500-50 mcg/dose blister with device 1 inh inhalation BID Qty: 60 0RF Spiriva with HandiHaler 18 mcg capsule, w/inhalation device 1 cap inhalation DAILY 30 Days Qty: 30 2RF Rx Instructions: puncture 1 cap using device; one dose = 2 inhalations prednisone 20 mg tablet 20 mg PO BID 5 Days Qty: 10 0RF metoprolol tartrate 25 mg tablet 12.5 mg PO BID 30 Days Qty: 30 0RF prednisone 5 mg tablet 5 mg PO EVERY OTHER DAY Qty: 30 0RF Continued levothyroxine 125 mcg tablet 125 mcg PO 1XD albuterol sulfate 90 mcg/actuation HFA aerosol inhaler 2 inh INHALATION Q4H PRN (Reason: shortness of breath or wheezing) Qty: 18 0RF Changed fluoxetine 40 mg capsule 40 mg PO DAILY 30 Days Qty: 30 0RF clonazepam 0.5 mg tablet 0.5 mg PO QID PRN (Reason: anxiety) 5 Days Qty: 20 0RF Discharge Orders: Discharge Order (Routine); Ordered 03/01/23 Ordered By: Ellie Chandra Referrals: [facility] [Other] ([facility] will follow up with you once you have seen Dr Gonzalez on 03/02/23 at 1:30pm. If you miss this appointment, you will not be able to get [facility]. ) Benjamin Gonzalez MD [Physician] - 03/02/23 1:30 pm DatarRamin MD [Physician] - 2 weeks Discharge Diet: Usual diet Discharge Activity: Resume usual activity Patient Instructions: Opioid Safety Discharge Attestations Time Spent in Discharge Care*: greater than 30 min Status at Discharge: Cognitive status at discharge: mildly impaired cognition, Behavioral status at discharge: cooperative, Quality Metrics Clinical Quality Measures [ No reported AMI, CVA or VTE this stay] Coding Level of Care Code Acute Code for Chg Fwd Diagnoses Chronic respiratory failure with hypoxia J96.11 COPD (chronic obstructive pulmonary disease) J44.9 COPD type: unspecified COPD Acute exacerbation of chronic obstructive airways disease J44.1 Anxiety disorder F41.9
== END 2023-03-01 13:00 | disposition home health service (06) | DRG 190 ==
LOC: ER 13:48 → MEDSURG 14:59
PROVIDERS: Admitting Provider Internal Medicine; Emergency Provider Family Medicine; PCP Family Medicine; Visit Provider Student in an Organized Health Care Education/Training Program
DX: J44.1 Chronic obstructive pulmonary disease with (acute) exacerbation (principal); J96.21 Acute and chronic respiratory failure with hypoxia; J96.22 Acute and chronic respiratory failure with hypercapnia; Z11.52 Encounter for screening for COVID-19; F41.1 Generalized anxiety disorder; Z87.891 Personal history of nicotine dependence; F41.0 Panic disorder [episodic paroxysmal anxiety]; Z99.81 Dependence on supplemental oxygen; E03.9 Hypothyroidism, unspecified; I10 Essential (primary) hypertension; M79.7 Fibromyalgia; F32.9 Major depressive disorder, single episode, unspecified; Z87.01 Personal history of pneumonia (recurrent); Z66 Do not resuscitate
CPT/HCPCS: 36415; 71045; 80053; 81001; 83880; 84145; 84443; 85025; 87070; 87205; 87486; 87581; 87633; 93005; 94640; 96365; 96366; 96372; 96374; 97116; 97162; 97166; 97530; 99281; 99285; G0378; J0456; J1650; J2920; J2930; J3490; J7050; J7512; J7613; J7626; Q3014

== ENCOUNTER 2023-03-27 11:02 | Emergency (ER) | payer MEDICARE, SELFPAY ==
[2023-03-27 11:05] VITALS: BP 157/93; PULSE 120; RESP 26; TEMP 36.7; O2SAT 98
--- NOTE | 2023-03-27 11:23 | W.ED.SOB ---
HPI - SOB/Dyspnea General: Chief Complaint: Shortness of Breath/Dyspnea Stated Complaint: COPD Time Seen by Provider: 03/27/23 11:10 Source: patient and EMS Mode of arrival: EMS Limitations: no limitations History of Present Illness: HPI Narrative: Patient is a 72 year old female with past medical history of COPD/asthma, chronic respiratory failure-oxygen dependent, anxiety/panic disorder here via EMS for evaluation of shortness of breath. Patient is well-known to our emergency department and has been here several several times with identical complaints. Patient lives alone and has very little to no support. There has been many discussions about nursing facilities but patient declines. Upon arrival to the ED she provides very little history of current illness other than telling me she feels short of breath. She states she has not been ill recently. No URI-like symptoms. No fevers. She is not having any chest pain. Patient was admitted to the hospital last month for COPD exacerbation. MD elicited complaint: shortness of breath Pertinent past history: COPD and asthma Onset (ago): day(s) Timing: constant Severity: moderate Exacerbating factors: exertion Relieving factors: nothing Known history of: COPD and asthma Associated symptoms: Deny abdominal pain, chest pain, extremity pain, fever(s), hemoptysis, lightheadedness, nausea, palpitations, syncope or vomiting Treatment prior to arrival: oxygen Related Data: Home oxygen amount: 3 liters Review of Systems Const: Denies: fever(s), chills, body aches, fatigue or malaise ENMT: Denies: throat pain, odynophagia, nasal discharge, nasal congestion or sinus pain Card: Reports: dyspnea on exertion (chronic); Denies: chest pain, palpitations, irregular heart rhythm, swelling of feet/ankles, lightheadedness, syncope or pre-syncope Resp: Reports: dyspnea (acute on chronic); Denies: productive cough, non-productive cough, wheezing, change in phlegm color or hemoptysis GI: Denies: abdominal pain, nausea, vomiting or diarrhea : Denies: flank pain, dysuria or hematuria Musc: Denies: neck pain, back pain, extremity pain or joint pain Skin/Breast: Denies: rash Neuro: Denies: headache(s), numbness in extremities, weakness in extremities or sensory changes [facility] ED PFSH: Medical History Supplemental oxygen dependent Anxiety 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 attack Goals of care, counseling/discussion Asthma-COPD overlap syndrome Fibromyalgia syndrome MDD (major depressive disorder) Delusional disorder Chronic respiratory failure with hypoxia Panic anxiety syndrome Surgical History History of appendectomy History of hysterectomy History of cholecystectomy Hx of tonsillectomy Family History Other No pertinent family history Social History Smoking and tobacco/nicotine status: former use of tobacco/nicotine Quit status (tobacco/nicotine): has quit using Year quit tobacco: 2015 - 1PPD x 40 Years Alcohol intake: never Substance/Drug Use: never Lives independently: Yes Household members: none Current occupational status: disabled Pets and animals: Yes Pets & animals: dog(s) Do you think of yourself as: Straight/Heterosexual Current gender identity: Female Physical Exam Const: COMMON NORMALS: no acute distress, patient oriented x3, no limitations and alert GENERAL APPEARANCE: cooperative NUTRITIONAL APPEARANCE: thin ORIENTATION/CONSCIOUSNESS: Yes awake, Yes oriented to person, Yes oriented to place and Yes oriented to time HENMT: COMMON NORMALS: Normal external nose present FACE & SINUS: normal facial exam and sinuses nontender NOSE: Normal external nose present MOUTH: Normal oral and palatal mucosa present and lip normal THROAT: posterior oropharynx normal Eye: COMMON NORMALS: Equal, round and reactive pupils present, EOMs intact bilaterally and no scleral icterus GENERAL EYE: appearance normal, both eyes and all related structures and normal light reflex PUPIL: Yes Equal, round and reactive pupils present DIRECT OPHTHALMOSCOPY: Yes normal light reflex Neck/C-Spine: COMMON NORMALS: full ROM, no lymphadenopathy, no meningeal signs, no JVD and No carotid bruits Chest: COMMONS NORMALS: normal inspection of the chest and normal palpation of entire chest wall Resp: COMMON NORMALS: normal respiratory effort and clear to auscultation bilaterally AUSCULTATION: clear to auscultation bilaterally OTHER: arrives with 6L via NC satting at 94%; patient seems disgruntled when I turn her down to 3L-she continues to sat well at 94% on 3L Cardio: COMMON NORMALS: no JVD and regular rhythm RATE: tachycardic RHYTHM: regular rhythm GI: COMMON NORMALS: Normal to inspection, nondistended, normoactive bowel sounds present, Soft to palpation and non-tender PALPATION: Yes Soft to palpation Extremity: COMMON NORMALS: normal to inspection, capillary refill normal, no joint enlargement, no clubbing, cyanosis or edema, no calf tenderness and no pedal edema GENERAL: Yes normal exam except as noted Neuro: ARLIN COMA SCALE: document GCS findings Butterfield coma scale eye opening: Spontaneous Butterfield coma scale verbal response: Orientated Arlin coma scale motor response: Obey commands Arlin coma scale total score: 15 COMMON NORMALS: patient oriented x3, moves all extremities, no focal motor deficits and no sensory deficits noted SENSORIUM/ORIENTATION: Yes alert, Yes oriented to person, Yes oriented to place and Yes oriented to time MENINGEAL SIGNS: Yes no meningeal signs Skin: COMMON NORMALS: no rashes or lesions noted GENERAL SKIN EXAM: no rashes or lesions noted Course Vital Signs: Vital signs: Vital Signs Temperature 98.0 F 03/27/23 11:05 Pulse Rate 102 H 03/27/23 13:50 Respiratory Rate 20 H 03/27/23 13:50 Blood Pressure 134/89 03/27/23 13:50 Pulse Oximetry 93 03/27/23 13:50 Oxygen Delivery Me thod Nasal Cannula 03/27/23 12:45 Oxygen Flow Rate 4 03/27/23 12:45 MDM - SOB/Dyspnea Medical Decision Making Patient is a 72-year-old female well-known to our emergency department here with complaints of shortness of breath. On re-examination patient tells me that her shortness of breath currently is at baseline. She has not had any new or worsening shortness of breath. She has not had any recent URI-like symptoms. No fevers. Patient arrived on 6 L of oxygen. Apparently she has been bumping herself up to this at home. I weaned her down to 3 L which she seemed disgruntled about however patient maintained saturations at this rate. Discussed with her adverse events related to over oxygenation. Ultimately if her shortness of breath is at baseline is really nothing I feel to further offer her from an emergency standpoint. Her workup here is essentially unremarkable. CXR is normal. 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 She is requesting a refill on her albuterol inhaler. She was provided one of these prior to discharge. Medical Records I reviewed the patient's medical records. Lab Data I reviewed the patient's lab results. 03/27/23 11:00 03/27/23 11:00 Labs/Radiology: Laboratory Results WBC 6.31 10^3/uL (3.29-11.43) 03/27/23 11:00 RBC 4.96 10^6/uL (3.85-5.65) 03/27/23 11:00 Hgb 15.70 g/dL (11.27-16.99) 03/27/23 11:00 Hct 48.3 % (36-47) H 03/27/23 11:00 MCV 97.4 fl (85-98) 03/27/23 11:00 MCH 31.7 pg (27-33) 03/27/23 11:00 MCHC 32.5 g/dL (30-55) 03/27/23 11:00 RDW 13.8 % (12.1-15.1) 03/27/23 11:00 Plt Count 459 10^3/cmm (157-399) H 03/27/23 11:00 MPV 10.1 fL (7.4-10.4) 03/27/23 11:00 Neut % (Auto) 58.5 % 03/27/23 11:00 Lymph % (Auto) 21.9 % 03/27/23 11:00 [place] % (Auto) 9.7 % 03/27/23 11:00 Eos % (Auto) 8.6 % 03/27/23 11:00 Baso % (Auto) 1.0 % 03/27/23 11:00 Neut # (Auto) 3.70 10^3/uL (1.8-7.7) 03/27/23 11:00 Lymph # (Auto) 1.4 10^3/uL (0.8-4.8) 03/27/23 11:00 [place] # (Auto) 0.6 10^3/uL (0.2-0.9) 03/27/23 11:00 Eos # (Auto) 0.5 10^3/uL (0.0-0.8) 03/27/23 11:00 Baso # (Auto) 0.1 10^3/uL (0.0-0.1) 03/27/23 11:00 Nucleated RBC % (auto) 0 % 03/27/23 11:00 Nucleated RBCs # 0.0 /100WBC 03/27/23 11:00 Specimen Type Arterial 03/27/23 11:51 Sample Site Brachial, right 03/27/23 11:51 ABG pH 7.42 (7.35-7.45) 03/27/23 11:51 ABG pCO2 48.1 mmHg (35-45) H 03/27/23 11:51 ABG pO2 68.9 mmHg (80.0-100.0) L 03/27/23 11:51 ABG PO2/FiO2 Ratio 0 03/27/23 11:51 ABG HCO3 31.2 mmol/L (22-26) H 03/27/23 11:51 ABG O2 Saturation 94.9 03/27/23 11:51 ABG Base Excess 5.5 mmol/L (-2.0-2.0) H 03/27/23 11:51 Stephen Test N/a 03/27/23 11:51 A-a O2 Gradient 12.3 mmHg (5-10) H 03/27/23 11:51 Hematocrit 45.3 % (37-47) 03/27/23 11:51 Hgb O2 Saturation 93.9 % (95-100) L 03/27/23 11:51 Carboxyhemoglobin 0.8 %THgb (0.4-20.1) 03/27/23 11:51 Methemoglobin 0.2 % (0.4-1.5) L 03/27/23 11:51 Total Hemoglobin 14.8 g/dL (12-16) 03/27/23 11:51 Sodium 141.0 mmol/L (131-143) 03/27/23 11:51 Potassium 3.9 mmol/L (3.5-5.0) 03/27/23 11:51 Glucose 121.0 mg/dL (70-115) H 03/27/23 11:51 Ionized Calcium 1.2 mmol/L (1.1-1.4) 03/27/23 11:51 O2 Delivery Device Nc 03/27/23 11:51 O2 Liters/Min 3.0 % 03/27/23 11:51 FiO2 32.0 % 03/27/23 11:51 Nuclear Equipment Test Engineer ID Amh 03/27/23 11:51 Sodium 142 mmol/L (136-145) 03/27/23 11:00 Potassium 4.7 mmol/L (3.5-5.1) 03/27/23 11:00 Chloride 98 mmol/L (98-107) 03/27/23 11:00 Carbon Dioxide 32 mmol/L (22-29) H 03/27/23 11:00 Anion Gap 16.7 (5-19) 03/27/23 11:00 BUN 14 mg/dL (8-23) 03/27/23 11:00 Creatinine 0.6 mg/dL (0.5-0.9) 03/27/23 11:00 GFR Calculation Not Reportable 03/27/23 11:00 Glucose 108 mg/dL (65-115) 03/27/23 11:00 Calculated Osmolality 295 mOsm/kg (285-295) 03/27/23 11:00 Calcium 10.6 mg/dL (8.5-10.5) H 03/27/23 11:00 Total Bilirubin 1.1 mg/dL (0.15-1.2) 03/27/23 11:00 AST 25 U/L (0-32) 03/27/23 11:00 ALT 17 U/L (0-33) 03/27/23 11:00 Alkaline Phosphatase 99 U/L (35-105) 03/27/23 11:00 Troponin T Baseline 9 ng/L (0-10) 03/27/23 11:00 Total Protein 7.4 g/dL (6.6-8.7) 03/27/23 11:00 Albumin 4.7 g/dL (3.5-5.2) 03/27/23 11:00 Globulin 2.7 g/dL (1.3-4.6) 03/27/23 11:00 Procalcitonin 0.03 ng/mL (0-0.5) 03/27/23 11:00 All radiology interpretation(s) finalized by discharge Discharge Plan Discharge Patient Disposition: Home Clinical Impression: Chronic respiratory failure with hypoxia, Asthma-COPD overlap syndrome Condition: Stable Prescriptions: No Action (DME) Hospital bed, that folds See Rx Instructions .Route .MEDSUPPLY Qty: 1 0RF Rx Instructions: As directed prednisone 5 mg tablet 5 mg PO EVERY OTHER DAY Qty: 30 3RF pantoprazole 40 mg tablet,delayed release (DR/EC) 40 mg PO DAILY 30 Days Qty: 30 3RF metoprolol tartrate 25 mg tablet 12.5 mg PO BID 30 Days Qty: 30 5RF levothyroxine 125 mcg tablet 125 mcg PO 1XD Qty: 30 5RF clonazepam 0.5 mg tablet 0.5 mg PO BID PRN (Reason: anxiety) 30 Days Qty: 60 2RF albuterol sulfate 90 mcg/actuation HFA aerosol inhaler 2 inh INHALATION Q4H PRN (Reason: shortness of breath or wheezing) Qty: 18 5RF fluoxetine 40 mg capsule 40 mg PO DAILY 30 Days Qty: 30 3RF Spiriva with HandiHaler 18 mcg capsule, w/inhalation device 1 cap inhalation DAILY 30 Days Qty: 30 5RF Rx Instructions: puncture 1 cap using device; one dose = 2 inhalations fluticasone propion-salmeterol [Advair Diskus] 500-50 mcg/dose blister with device 1 inh inhalation BID Qty: 60 0RF Discharge Orders: Discharge ED (Routine); Ordered 03/27/23 Ordered By: Sherlyn Mason Referrals: Benjamin Gonzalez MD [Primary Care Provider] - Patient Instructions: COPD (Chronic Obstructive Pulmonary Disease) (DC) Coding Level of Care Code ED Lead Designer for Ji Melgar
--- NOTE | 2023-03-27 11:31 | XR_ITS ---
WS: [id number] PORTABLE CHEST HISTORY: sob COMPARISON: 02/25/2023 Lungs are clear and well expanded. No pleural effusion or pneumothorax. Cardiac size: Normal. Mediastinum/Aorta: Normal mediastinum. No osseous abnormality seen. IMPRESSION: Unremarkable portable chest.
--- NOTE | 2023-03-27 11:32 | ECG_ITS ---
[facility] Test Date: 2023-03-27 Pat Name: Socorro Montes De Oca Department: Room: Gender: Female Cherry Pitter: : 1950 Requested By: Sherlyn Mason Order Number: [id number] Octavio MD: Giorgi Justin M.D. Measurements Intervals [place] Rate: 114 P: 92 CO: 126 QRS: 53 QRSD: 94 T: 87 QT: 341 QTc: 471 Interpretive Statements SINUS TACHYCARDIA WITH FREQUENT VENTRICULAR PREMATURE COMPLEXES POSSIBLE RIGHT ATRIAL ENLARGEMENT [0.25mV P-WAVE] POSSIBLE LEFT ATRIAL ENLARGEMENT [-0.1mV P-WAVE IN V1/V2] INCOMPLETE RIGHT BUNDLE BRANCH BLOCK [90+ ms QRS DURATION, TERMINAL R IN V1/V2, 40+ ms S IN I/aVL/V4/V5/V6] ABNORMAL RHYTHM ECG Compared to ECG 02/24/2023 02:50:25 Ventricular premature complex(es) now present Incomplete right bundle-branch block now present Electronically Signed On 03-27-2023 21:40:38 NURSING HOME MANAGER by Giorgi Justin M.D. [id number]
[2023-03-27 11:39] LABS: Basophils # 0.1 10^3/uL (0.0-0.1); Eosinophils # 0.5 10^3/uL (0.0-0.8); Eosinophils % 8.6 %; Hematocrit 48.3 % (36-47); Lymphocytes # 1.4 10^3/uL (0.8-4.8); Lymphocytes % 21.9 %; Mean Corpuscular HGB Conc 32.5 g/dL (30-55); Mean Corpuscular Hemoglobin 31.7 pg (27-33); Mean Corpuscular Volume 97.4 fl (85-98); Mean Platelet Volume 10.1 fL (7.4-10.4); Monocytes # 0.6 10^3/uL (0.2-0.9); Monocytes % 9.7 %; Neutrophils % 58.5 %; Nucleated Red Blood Cells % 0 %; Platelet Count 459 10^3/cmm (157-399); Red Blood Count 4.96 10^6/uL (3.85-5.65); Red Cell Distribution Width 13.8 % (12.1-15.1); White Blood Count 6.31 10^3/uL (3.29-11.43)
--- NOTE | 2023-03-27 11:46 | PC.PHAR ---
PT STS SHE HAS ALL THE MEDS LISTED ON HOME MEDICATION LIST BUT ONLY TAKES CLONAZEPAM AND USES HER VENTOLIN INH
[2023-03-27 11:50] LABS: Troponin(5th) Baseline 9 ng/L (0-10)
[2023-03-27 11:51] LABS: Alanine Aminotransferase 17 U/L (0-33); Albumin Level 4.7 g/dL (3.5-5.2); Alkaline Phosphatase 99 U/L (35-105); Anion Gap 16.7 (5-19); Aspartate Amino Transferase 25 U/L (0-32); Blood Urea Nitrogen 14 mg/dL (8-23); Calcium 10.6 mg/dL (8.5-10.5); Carbon Dioxide 32 mmol/L (22-29); Chloride 98 mmol/L (98-107); Globulin 2.7 g/dL (1.3-4.6); Glucose 108 mg/dL (65-115); Osmolality Calculated 295 mOsm/kg (285-295); Potassium 4.7 mmol/L (3.5-5.1); Sodium 142 mmol/L (136-145); Total Bilirubin 1.1 mg/dL (0.15-1.2); Total Protein 7.4 g/dL (6.6-8.7)
[2023-03-27 11:58] LABS: Procalcitonin 0.03 ng/mL (0-0.5)
[2023-03-27 12:02] LABS: ABG PCO2 48.1 mmHg (35-45); ABG PH Result 7.42 (7.35-7.45); Alveolar-Arterial Oxygen Gradi 12.3 mmHg (5-10); Arterial Blood Gas Hematocrit 45.3 % (37-47); Base Excess ABG 5.5 mmol/L (-2.0-2.0); Blood Gas Operator Identificat AMH; Blood Gas Sample Site Brachial, right; Blood Gas Sample Type Arterial; Carboxyhemoglobin 0.8 %THgb (0.4-20.1); HCO3 ABG 31.2 mmol/L (22-26); HGB O2 Sat 93.9 % (95-100); Ionized Calcium Level - ABG 1.2 mmol/L (1.1-1.4); Methemoglobin 0.2 % (0.4-1.5); Oxygen Device NC; Oxygen Saturation ABG 94.9; PO2 ABG 68.9 mmHg (80.0-100.0); PO2 FiO2 Ratio Arterial Blood 0; Potassium Level - ABG 3.9 mmol/L (3.5-5.0); Total Hemoglobin 14.8 g/dL (12-16)
[2023-03-27] MEDS: methylPREDNISolone sod succ 125 mg/2 mL INJ 80 MG IVP (12:42)
[2023-03-27 12:45] VITALS: BP 148/88; PULSE 113; RESP 19; O2SAT 91
[2023-03-27 13:50] VITALS: BP 134/89; PULSE 102; RESP 20; O2SAT 93
[2023-03-27 14:42] LABS: Adenovirus Not Detected (NOT DETECT); Chlamydia Pneumoniae Not Detected (NOT DETECT); Coronavirus 229E,HKU1,NL63,OC4 Not Detected (NOT DETECT); Human Metapneumovirus Not Detected (NOT DETECT); Human Rhinovirus/Enterovirus Not Detected (NOT DETECT); Influenza A Not Detected (NOT DETECT); Influenza A H1 Not Detected (NOT DETECT); Influenza A H1-2009 Not Detected (NOT DETECT); Influenza A H3 Not Detected (NOT DETECT); Influenza B Not Detected (NOT DETECT); Mycoplasma Pneumoniae Not Detected (NOT DETECT); Parainfluenza Virus Type 1 Not Detected (NOT DETECT); Parainfluenza Virus Type 2 Not Detected (NOT DETECT); Parainfluenza Virus Type 3 Not Detected (NOT DETECT); Parainfluenza Virus Type 4 Not Detected (NOT DETECT); Respiratory Syncytial Virus A Not Detected (NOT DETECT); Respiratory Syncytial Virus B Not Detected (NOT DETECT); SARS-COV-2 Not Detected (NOT DETECT)
--- NOTE | 2023-03-29 07:46 | DCPLANNER ---
Message was sent to pulmonology on 03/29/23 at 0746. Clinic to contact patient.
== END 2023-03-27 13:51 | disposition home or self-care (01) ==
PROVIDERS: Emergency Provider Physician Assistant; PCP Family Medicine Adult Medicine
DX: J96.11 Chronic respiratory failure with hypoxia (principal); J44.89 Other specified chronic obstructive pulmonary disease; Z87.891 Personal history of nicotine dependence; Z99.81 Dependence on supplemental oxygen
CPT/HCPCS: 36600; 71045; 80051; 80053; 82330; 82805; 84145; 84484; 85025; 87486; 87581; 87633; 93005; 96374; 99285; J2930; J3535

== ENCOUNTER 2023-03-29 12:29 | Emergency (ER) | payer MEDICARE, SELFPAY ==
[2023-03-29 12:32] VITALS: BP 154/91; PULSE 124; RESP 18; TEMP 37.1; O2SAT 95; BMI 22.4
--- NOTE | 2023-03-29 12:35 | XRR_ITS ---
PROCEDURE INFORMATION: Exam: XR Chest Exam date and time: 03/29/2023 12:44 PM Age: 72 years old Clinical indication: Cough and dyspnea; Additional info: Dyspnea/cough TECHNIQUE: Imaging protocol: Radiologic exam of the chest. Views: 1 view. COMPARISON: CR XR chest 1V portable [id number] 03/27/2023 11:44 AM FINDINGS: Lungs: No focal consolidation. Pleural spaces: No pleural effusion. No pneumothorax. Heart/Mediastinum: No cardiomegaly. Bones/joints: No acute findings. XR/XR chest 1V portable [id number] IMPRESSION: No acute findings.
--- NOTE | 2023-03-29 12:40 | ED_ITS ---
HPI - SOB/Dyspnea 2 General: Chief Complaint: Shortness of Breath/Dyspnea Stated Complaint: diff breathing Time Seen by Provider: 03/29/23 12:31 Source: patient Mode of arrival: EMS History of Present Illness: HPI Narrative: 72-year-old female presents emergency ro om with complaint of shortness breath over the last 2 hours. She she was given albuterol neb in route also given subcu terbutaline and 6 mg of dexamethasone. She denies any chest or abdominal pain no hemoptysis. She is normally on oxygen. On arrival here she is at 6 L/min after evaluation decreased to 30 L/min patient noted to have sats 95% at that level. MD elicited complaint: shortness of breath and cough Pertinent past history: COPD Severity: mild Exacerbating factors: exertion and coughing Relieving factors: oxygen, rest and bronchodilators Known history of: COPD Associated symptoms: Reports cough; Deny abdominal pain, chest congestion, chest pain, diaphoresis, dizziness, extremity pain, fever(s), hemoptysis, lightheadedness, myalgias, nausea, orthopnea, palpitations, paresthesias, polydipsia, polyuria, rash, sense of impending doom, syncope or vomiting Review of Systems 2 Const: Denies: fever(s) or diaphoresis Card: Denies: chest pain, palpitations, lightheadedness, syncope or orthopnea Resp: Reports: dyspnea, non-productive cough and wheezing; Denies: hemoptysis or chest congestion GI: Denies: abdominal pain, nausea or vomiting : Denies: dysuria, urinary frequency or urinary urgency Musc: Denies: extremity pain Skin/Breast: Denies: rash Neuro: Denies: dizziness Endo: Denies: polyuria or polydipsia PFSH ED 2 PFSH: Medical History Supplemental oxygen dependent Anxiety 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 attack Goals of care, counseling/discussion Asthma-COPD overlap syndrome Fibromyalgia syndrome MDD (major depressive disorder) Delusional disorder Chronic respiratory failure with hypoxia Panic anxiety syndrome Surgical History History of appendectomy History of hysterectomy History of cholecystectomy Hx of tonsillectomy Family History Other No pertinent family history Social History Smoking and tobacco/nicotine status: former use of tobacco/nicotine Quit status (tobacco/nicotine): has quit using Year quit tobacco: 2015 - 1PPD x 40 Years Alcohol intake: never Substance/Drug Use: never Lives independently: Yes Household members: none Current occupational status: disabled Pets and animals: Yes Pets & animals: dog(s) Do you think of yourself as: Straight/Heterosexual Current gender identity: Female Physical Exam 2 Const: GENERAL APPEARANCE: cooperative and comfortable O RIENTATION/CONSCIOUSNESS: Yes awake, Yes oriented to person, Yes oriented to place and Yes oriented to time HENMT: COMMON NORMALS: normocephalic, atraumatic and hearing grossly normal bilaterally HEAD & SCALP: normocephalic and atraumatic Resp: COMMON NORMALS: normal respiratory effort, No retractions and No use of accessory muscles AUSCULTATION: wheezes Cardio: COMMON NORMALS: regular rate, regular rhythm and No murmurs present (Cardio) RATE: regular rate RHYTHM: regular rhythm GI: COMMON NORMALS: Soft to palpation and No hepatosplenomegaly present A USCULTATION: Yes normoactive bowel sounds PALPATION: Yes Soft to palpation, No Tenderness to palpation present (GI), No Guarding due to palpation present (GI) and Yes No hepatosplenomegaly present Extremity: COMMON NORMALS: normal to inspection, capillary refill normal, no clubbing, cyanosis or edema, no calf tenderness and no pedal edema Neuro: SENSORIUM/ORIENTATION: Yes oriented to person, Yes oriented to place and Yes oriented to time Skin: COMMON NORMALS: no rashes or lesions noted GENERAL SKIN EXAM: no rashes or lesions noted Course 2 Vital Signs: Vital signs: Vital Signs Temperature 98.8 F 03/29/23 12:32 Pulse Rate 122 H 03/29/23 12:56 Respiratory Rate 22 H 03/29/23 12:53 Blood Pressure 154/91 03/29/23 12:32 Pulse Oximetry 96 03/29/23 12:53 Oxygen Delivery Me thod Nasal Cannula 03/29/23 12:53 Oxygen Flow Rate 4 03/29/23 12:53 MDM - SOB/Dyspnea Medical Decision Making ABG was normal. Patient actually does very well on 3 L discussed with her be better if she stated 3 L turning her oxygen to high can actually lead to hypercapnia. There is no sign of infiltrate or infection. She has very little to no wheezing. She can use albuterol ipratropium bromide nebs at home. At her request they were sent to the [facility] pharmacy at [address] [place] [address] because they will deliver from that pharmacy. She can follow-up with her primary care doctor as needed. Medical Records I reviewed the patient's medical records. Lab Data I reviewed the patient's lab results. 03/29/23 12:17 03/29/23 12:17 Labs/Radiology: Radiology Impressions Chest X-Ray 03/29/23 12:35 IMPRESSION: No acute findings. Laboratory Results WBC 7.97 10^3/uL (3.29-11.43) 03/29/23 12:17 RBC 4.87 10^6/uL (3.85-5.65) 03/29/23 12:17 Hgb 15.90 g/dL (11.27-16.99) 03/29/23 12:17 Hct 47.1 % (36-47) H 03/29/23 12:17 MCV 96.7 fl (85-98) 03/29/23 12:17 MCH 32.6 pg (27-33) 03/29/23 12:17 MCHC 33.8 g/dL (30-55) 03/29/23 12:17 RDW 13.6 % (12.1-15.1) 03/29/23 12:17 Plt Count 463 10^3/cmm (157-399) H 03/29/23 12:17 MPV 9.9 fL (7.4-10.4) 03/29/23 12:17 Neut % (Auto) 71.1 % 03/29/23 12:17 Lymph % (Auto) 15.4 % 03/29/23 12:17 [place] % (Auto) 7.5 % 03/29/23 12:17 Eos % (Auto) 4.6 % 03/29/23 12:17 Baso % (Auto) 1.0 % 03/29/23 12:17 Neut # (Auto) 5.66 10^3/uL (1.8-7.7) 03/29/23 12:17 Lymph # (Auto) 1.2 10^3/uL (0.8-4.8) 03/29/23 12:17 [place] # (Auto) 0.6 10^3/uL (0.2-0.9) 03/29/23 12:17 Eos # (Auto) 0.4 10^3/uL (0.0-0.8) 03/29/23 12:17 Baso # (Auto) 0.1 10^3/uL (0.0-0.1) 03/29/23 12:17 Nucleated RBC % (auto) 0 % 03/29/23 12:17 Nucleated RBCs # 0.0 /100WBC 03/29/23 12:17 Specimen Type Arterial 03/29/23 12:49 Sample Site Radial, left 03/29/23 12:49 ABG pH 7.44 (7.35-7.45) 03/29/23 12:49 ABG pCO2 47.3 mmHg (35-45) H 03/29/23 12:49 ABG pO2 81.0 mmHg (80.0-100.0) 03/29/23 12:49 ABG PO2/FiO2 Ratio 0 03/29/23 12:49 ABG HCO3 32.1 mmol/L (22-26) H 03/29/23 12:49 ABG O2 Saturation 97.1 03/29/23 12:49 ABG Base Excess 6.8 mmol/L (-2.0-2.0) H 03/29/23 12:49 Stephen Test Pos 03/29/23 12:49 A-a O2 Gradient 15.0 mmHg (5-10) H 03/29/23 12:49 Hematocrit 45.2 % (37-47) 03/29/23 12:49 Hgb O2 Saturation 96.4 % (95-100) 03/29/23 12:49 Carboxyhemoglobin 0.6 %THgb (0.4-20.1) 03/29/23 12:49 Methemoglobin 0.2 % (0.4-1.5) L 03/29/23 12:49 Total Hemoglobin 14.7 g/dL (12-16) 03/29/23 12:49 Sodium 142.0 mmol/L (131-143) 03/29/23 12:49 Potassium 3.5 mmol/L (3.5-5.0) 03/29/23 12:49 Glucose 133.0 mg/dL (70-115) H 03/29/23 12:49 Ionized Calcium 1.2 mmol/L (1.1-1.4) 03/29/23 12:49 O2 Delivery Device Nc 03/29/23 12:49 O2 Liters/Min 4.0 % 03/29/23 12:49 FiO2 36.0 % 03/29/23 12:49 Clinical Assessment Manager ID Cak 03/29/23 12:49 Sodium 143 mmol/L (136-145) 03/29/23 12:17 Potassium 4.0 mmol/L (3.5-5.1) 03/29/23 12:17 Chloride 98 mmol/L (98-107) 03/29/23 12:17 Carbon Dioxide 34 mmol/L (22-29) H 03/29/23 12:17 Anion Gap 15.0 (5-19) 03/29/23 12:17 BUN 18 mg/dL (8-23) 03/29/23 12:17 Creatinine 0.6 mg/dL (0.5-0.9) 03/29/23 12:17 GFR Calculation Not Reportable 03/29/23 12:17 Glucose 126 mg/dL (65-115) H 03/29/23 12:17 Calculated Osmolality 299 mOsm/kg (285-295) H 03/29/23 12:17 Calcium 10.1 mg/dL (8.5-10.5) 03/29/23 12:17 Total Bilirubin 0.9 mg/dL (0.15-1.2) 03/29/23 12:17 AST 20 U/L (0-32) 03/29/23 12:17 ALT 15 U/L (0-33) 03/29/23 12:17 Alkaline Phosphatase 94 U/L (35-105) 03/29/23 12:17 NT-Pro-B Natriuret Pep 64 pg/mL (0-125) 03/29/23 12:17 Total Protein 8.0 g/dL (6.6-8.7) 03/29/23 12:17 Albumin 4.4 g/dL (3.5-5.2) 03/29/23 12:17 Globulin 3.6 g/dL (1.3-4.6) 03/29/23 12:17 All radiology interpretation(s) finalized by discharge Discharge Plan Discharge Patient Disposition: Home Clinical Impression: COPD (chronic obstructive pulmonary disease), Anxiety 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 attack MDD (major depressive disorder) Qualifiers: Major depression recurrence: recurrent Active/Remission status: currently active Major depression episode severity: moderate Qualified Code(s): F33.1 - Major depressive disorder, recurrent, moderate Condition: Stable Prescriptions: New ipratropium-albuterol 0.5 mg-3 mg(2.5 mg base)/3 mL solution for nebulization 3 ml inhalation Q4H PRN (Reason: shortness of breath or wheezing) Qty: 90 0RF No Action (DME) Hospital bed, that folds See Rx Instructions .Route .MEDSUPPLY Qty: 1 0RF Rx Instructions: As directed prednisone 5 mg tablet 5 mg PO EVERY OTHER DAY Qty: 30 3RF pantoprazole 40 mg tablet,delayed release (DR/EC) 40 mg PO DAILY 30 Days Qty: 30 3RF metoprolol tartrate 25 mg tablet 12.5 mg PO BID 30 Days Qty: 30 5RF clonazepam 0.5 mg tablet 0.5 mg PO BID PRN (Reason: anxiety) 30 Days Qty: 60 2RF albuterol sulfate 90 mcg/actuation HFA aerosol inhaler 2 inh INHALATION Q4H PRN (Reason: shortness of breath or wheezing) Qty: 18 5RF fluoxetine 40 mg capsule 40 mg PO DAILY 30 Days Qty: 30 3RF Spiriva with HandiHaler 18 mcg capsule, w/inhalation device 1 cap inhalation DAILY 30 Days Qty: 30 5RF Rx Instructions: puncture 1 cap using device; one dose = 2 inhalations fluticasone propion-salmeterol [Advair Diskus] 500-50 mcg/dose blister with device 1 inh inhalation BID Qty: 60 0RF levothyroxine 125 mcg tablet 125 mcg PO DAILY Discharge Orders: Discharge ED (Routine); Ordered 03/29/23 Ordered By: Alex Romero Referrals: Benjamin Gonzalez MD [Primary Care Provider] - Discharge Diet: Usual diet Discharge Activity: Increase activity as tolerated Patient Instructions: COPD (Chronic Obstructive Pulmonary Disease) (ED), Opioid Safety, Pain Management Activity Restrictions/Additional Instructions: Thank you for choosing [facility] for your healthcare needs today. Please realize this is an emergency room and that we are providing you with a medical screening exam and this may not be complete and all inclusive of all the testing and or work up that you may need to determine your ailment or severity of your illness. It is very important that you follow up as instructed or that you return to the Emergency Department should you have concerns or if your condition changes or worsens in any way. Coding Level of Care Code ED Dairy Hand for Ji Melgar
--- NOTE | 2023-03-29 12:45 | ECG_ITS ---
[facility] Test Date: 2023-03-29 Pat Name: Socorro Montes De Oca Department: Room: Gender: Female Cheese Specialist: : 1950 Requested By: Alex Scales Order Number: [id number] Octavio MD: Giorgi Justin M.D. Measurements Intervals [place] Rate: 120 P: 87 NE: 129 QRS: 69 QRSD: 84 T: 86 QT: 314 QTc: 445 Interpretive Statements SINUS TACHYCARDIA POSSIBLE RIGHT VENTRICULAR CONDUCTION DELAY [RSR (QR) IN V1/V2] ABNORMAL RHYTHM ECG Compared to ECG 03/27/2023 11:53:44 Ventricular premature complex(es) no longer present Incomplete right bundle-branch block no longer present Electronically Signed On 03-29-2023 21:49:27 CUPROUS CHLORIDE HELPER by Giorgi Justin M.D. [email or web address] residential [email or web address] [facility].Dreamise/store/OM/[id number]
[2023-03-29] MEDS: ipratropium-albuterol 3 mL Neb INHALATION (12:48)
[2023-03-29 12:49] LABS: Basophils # 0.1 10^3/uL (0.0-0.1); Eosinophils # 0.4 10^3/uL (0.0-0.8); Eosinophils % 4.6 %; Hematocrit 47.1 % (36-47); Lymphocytes # 1.2 10^3/uL (0.8-4.8); Lymphocytes % 15.4 %; Mean Corpuscular HGB Conc 33.8 g/dL (30-55); Mean Corpuscular Hemoglobin 32.6 pg (27-33); Mean Corpuscular Volume 96.7 fl (85-98); Mean Platelet Volume 9.9 fL (7.4-10.4); Monocytes # 0.6 10^3/uL (0.2-0.9); Monocytes % 7.5 %; Neutrophils # 5.66 10^3/uL (1.8-7.7); Neutrophils % 71.1 %; Nucleated Red Blood Cells % 0 %; Platelet Count 463 10^3/cmm (157-399); Red Blood Count 4.87 10^6/uL (3.85-5.65); Red Cell Distribution Width 13.6 % (12.1-15.1); White Blood Count 7.97 10^3/uL (3.29-11.43)
[2023-03-29 12:53] VITALS: PULSE 120; RESP 22; O2SAT 96
[2023-03-29 12:56] VITALS: PULSE 122
[2023-03-29 13:00] LABS: ABG PCO2 47.3 mmHg (35-45); ABG PH Result 7.44 (7.35-7.45); Arterial Blood Gas Hematocrit 45.2 % (37-47); Base Excess ABG 6.8 mmol/L (-2.0-2.0); Blood Gas Allen Test Pos; Blood Gas Operator Identificat CAK; Blood Gas Sample Site Radial, left; Blood Gas Sample Type Arterial; Carboxyhemoglobin 0.6 %THgb (0.4-20.1); HCO3 ABG 32.1 mmol/L (22-26); HGB O2 Sat 96.4 % (95-100); Ionized Calcium Level - ABG 1.2 mmol/L (1.1-1.4); Methemoglobin 0.2 % (0.4-1.5); Oxygen Device NC; Oxygen Saturation ABG 97.1; PO2 FiO2 Ratio Arterial Blood 0; Potassium Level - ABG 3.5 mmol/L (3.5-5.0); Total Hemoglobin 14.7 g/dL (12-16)
[2023-03-29 13:19] LABS: Alanine Aminotransferase 15 U/L (0-33); Albumin Level 4.4 g/dL (3.5-5.2); Alkaline Phosphatase 94 U/L (35-105); Aspartate Amino Transferase 20 U/L (0-32); Blood Urea Nitrogen 18 mg/dL (8-23); Calcium 10.1 mg/dL (8.5-10.5); Carbon Dioxide 34 mmol/L (22-29); Chloride 98 mmol/L (98-107); Creatinine Clr Calc Pharmacy 46.9109; Globulin 3.6 g/dL (1.3-4.6); Glucose 126 mg/dL (65-115); NT Pro B Type Natriuretic Pept 64 pg/mL (0-125); Osmolality Calculated 299 mOsm/kg (285-295); Sodium 143 mmol/L (136-145); Total Bilirubin 0.9 mg/dL (0.15-1.2)
--- NOTE | 2023-03-29 13:31 | PC.PHAR ---
pt states she doesn't have any of the meds on her list so she only uses the Albuterol inhaler. 03/29/23
== END 2023-03-29 13:49 | disposition home or self-care (01) ==
PROVIDERS: Emergency Provider Family Medicine; PCP Family Medicine Adult Medicine
DX: J44.9 Chronic obstructive pulmonary disease, unspecified (principal); F06.4 Anxiety disorder due to known physiological condition; F41.0 Panic disorder [episodic paroxysmal anxiety]; F33.1 Major depressive disorder, recurrent, moderate; Z99.81 Dependence on supplemental oxygen; Z87.891 Personal history of nicotine dependence
CPT/HCPCS: 36600; 71045; 80051; 80053; 82330; 82805; 83880; 85025; 93005; 94640; 99285

== ENCOUNTER 2023-03-30 13:02 | Emergency (ER) | payer MEDICARE, SELFPAY ==
[2023-03-30 13:05] VITALS: BP 135/116; PULSE 111; RESP 18; TEMP 36.6; O2SAT 96; BMI 26.4
--- NOTE | 2023-03-30 13:10 | ED_ITS ---
HPI - SOB/Dyspnea 2 General: Chief Complaint: Shortness of Breath/Dyspnea Stated Complaint: diff breathing Time Seen by Provider: 03/30/23 13:10 History of Present Illness: HPI Narrative: 72-year-old female presents emergency de partment via EMS personnel. She is very well-known to this emergency department and was seen here yesterday for shortness of breath. She is on supplemental oxygen at home and is normally supposed to be on 3 L but she turns it up to 6 L. She states she is all alone and has no friends or family. She states that she is very anxious to be at home by herself. She does not appear to be in any acute distress at present. Although she initially reported shortness of breath upon arrival here to the emergency department she is not having any difficulty with respirations is able to hold a conversation without appearing to be dyspneic. She does not have increased work of breathing at present. Review of Systems 2 General: Reports: 10 or more systems reviewed and unremarkable except in HPI and below Resp: Reports: dyspnea Psych: Reports: anxiety PFSH ED 2 PFSH: Medical History Supplemental oxygen dependent Anxiety 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 attack Goals of care, counseling/discussion Asthma-COPD overlap syndrome Fibromyalgia syndrome MDD (major depressive disorder) Delusional disorder Chronic respiratory failure with hypoxia Panic anxiety syndrome Surgical History History of appendectomy History of hysterectomy History of cholecystectomy Hx of tonsillectomy Family History Other No pertinent family history Social History Smoking and tobacco/nicotine status: former use of tobacco/nicotine Quit status (tobacco/nicotine): has quit using Year quit tobacco: 2015 - 1PPD x 40 Years Alcohol intake: never Substance/Drug Use: never Lives independently: Yes Household members: none Current occupational status: disabled Pets and animals: Yes Pets & animals: dog(s) Do you think of yourself as: Straight/Heterosexual Current gender identity: Female Physical Exam 2 Narrative: EXAM NARRATIVE: Constitutional: the patient appears well nourished and with normal development. Vital signs reviewed as documented. HENMT: Normocephalic, atraumatic. External ears with normal appearance without drainage. Nose without drainage, normal appearance. Mucus membranes moist. Neck is supple, No jugular venous distension, trachea is midline, no appreciable carotid bruits. No lymphadenopathy. No meningeal signs. Flexion, extension and lateral rotation is without pain. Eyes: Pupils are equal, round, reactive to light and accommodation. No scleral icterus. Extra-ocular movement are intact. Thorax is symmetrical and with equal rise and fall with respirations. Resp: Lungs are clear to auscultation. No wheezes, rales, crackles or ronchi at present. Currently on 3 L nasal cannula supplemental oxygen. Cardio: Regular rate and rhythm. Positive S1, S2. No appreciable murmurs, rubs or gallops. GI: Abdominal exam reveals normal bowel sounds to all quadrants. No organomegaly. No obvious palpable masses noted. No hepatomegally appreciated. Soft, nontender to palpation. Extremity: Extremities are non-edematous and both femoral and pedal pulses are 2+ and equal bilaterally. Moves all extremities well, sensation in all extremities. Neuro: Alert and oriented x4, person, place, time and situation. Cranial nerves II through XII are grossly intact, there is no focal neurological deficits that I can appreciate at present. Motor strength in the upper and lower extremities are equal and bilateral 5/5. Psych: Anxious, normal thought process, appropriate judgment. Skin: No lesions, rashes. No gross abnormalities noted. Back: Symmetrical, no obvious deformity, No CVA tenderness Course 2 Vital Signs: Vital signs: Vital Signs Temperature 97.8 F 03/30/23 13:05 Pulse Rate 111 H 03/30/23 13:05 Respiratory Rate 18 03/30/23 13:05 Blood Pressure 135/116 03/30/23 13:05 Pulse Oximetry 96 03/30/23 13:05 Oxygen Delivery Me thod Nasal Cannula 03/30/23 13:05 Oxygen Flow Rate 6 03/30/23 13:05 MDM - SOB/Dyspnea Medical Decision Making 72-year-old female well-known to this emergency department is noncompliant with the recommended use of her supplemental oxygen. She has been seen multiple times here in the emergency department with complaints of shortness of breath which results ultimately from her feelings of anxiety I will provide her a CBC CMP cardiac enzymes and arterial blood gas for evaluation. I suspect this patient would most likely benefit from case management intervention and to discuss placement with the patient at an assisted living or long-term care facility given that she has no family or friends or neighbors that she interacts with. After extensive review of her medical records I feel that the best possible action for this patient would be to help her gain placement in an assisted living or long-term care facility. Medical Records I reviewed the patient's medical records. Lab Data 03/30/23 13:31 03/30/23 13:31 Labs/Radiology: Laboratory Results WBC 12.22 10^3/uL (3.29-11.43) H 03/30/23 13:31 RBC 4.61 10^6/uL (3.85-5.65) 03/30/23 13:31 Hgb 14.70 g/dL (11.27-16.99) 03/30/23 13:31 Hct 44.6 % (36-47) 03/30/23 13:31 MCV 96.7 fl (85-98) 03/30/23 13:31 MCH 31.9 pg (27-33) 03/30/23 13:31 MCHC 33.0 g/dL (30-55) 03/30/23 13:31 RDW 13.6 % (12.1-15.1) 03/30/23 13:31 Plt Count 461 10^3/cmm (157-399) H 03/30/23 13:31 MPV 11.0 fL (7.4-10.4) H 03/30/23 13:31 Neut % (Auto) 73.8 % 03/30/23 13:31 Lymph % (Auto) 13.6 % 03/30/23 13:31 Dickson % (Auto) 10.5 % 03/30/23 13:31 Eos % (Auto) 1.1 % 03/30/23 13:31 Baso % (Auto) 0.5 % 03/30/23 13:31 Neut # (Auto) 9.02 10^3/uL (1.8-7.7) H 03/30/23 13:31 Lymph # (Auto) 1.7 10^3/uL (0.8-4.8) 03/30/23 13:31 Dickson # (Auto) 1.3 10^3/uL (0.2-0.9) H 03/30/23 13:31 Eos # (Auto) 0.1 10^3/uL (0.0-0.8) 03/30/23 13:31 Baso # (Auto) 0.1 10^3/uL (0.0-0.1) 03/30/23 13:31 Nucleated RBC % (auto) 0 % 03/30/23 13: Nucleated RBCs # 0.0 /100WBC 03/30/23 13:31 Specimen Type Arterial 03/30/23 13:29 Sample Site Brachial, right 03/30/23 13:29 ABG pH 7.47 (7.35-7.45) H 03/30/23 13:29 ABG pCO2 47.7 mmHg (35-45) H 03/30/23 13:29 ABG pO2 61.5 mmHg (80.0-100.0) L 03/30/23 13:29 ABG PO2/FiO2 Ratio 0 03/30/23 13:29 ABG HCO3 34.4 mmol/L (22-26) H 03/30/23 13:29 ABG Base Excess 9.2 mmol/L (-2.0-2.0) H 03/30/23 13:29 Stephen Test N/a 03/30/23 13:29 Hematocrit 43.4 % (37-47) 03/30/23 13:29 Hgb O2 Saturation 92.7 % (95-100) L 03/30/23 13:29 Carboxyhemoglobin 1.4 %THgb (0.4-20.1) 03/30/23 13:29 Methemoglobin 0.3 % (0.4-1.5) L 03/30/23 13:29 Total Hemoglobin 14.2 g/dL (12-16) 03/30/23 13:29 O2 Delivery Device Nc 03/30/23 13:29 O2 Liters/Min 2.5 % 03/30/23 13:29 FiO2 30.0 % 03/30/23 13:29 Delicatessen Store Manager ID Amh 03/30/23 13:29 Sodium 139 mmol/L (136-145) 03/30/23 13:31 Potassium 4.7 mmol/L (3.5-5.1) 03/30/23 13:31 Chloride 94 mmol/L (98-107) L 03/30/23 13:31 Carbon Dioxide 31 mmol/L (22-29) H 03/30/23 13:31 Anion Gap 18.7 (5-19) 03/30/23 13:31 BUN 23 mg/dL (8-23) 03/30/23 13:31 Creatinine 0.6 mg/dL (0.5-0.9) 03/30/23 13:31 GFR Calculation Not Reportable 03/30/23 13:31 Glucose 101 mg/dL (65-115) 03/30/23 13:31 Calculated Osmolality 292 mOsm/kg (285-295) 03/30/23 13:31 Calcium 10.1 mg/dL (8.5-10.5) 03/30/23 13:31 Total Bilirubin 1.0 mg/dL (0.15-1.2) 03/30/23 13:31 AST 27 U/L (0-32) 03/30/23 13:31 ALT 14 U/L (0-33) 03/30/23 13:31 Alkaline Phosphatase 92 U/L (35-105) 03/30/23 13:31 NT-Pro-B Natriuret Pep 68 pg/mL (0-125) 03/30/23 13:31 Total Protein 7.7 g/dL (6.6-8.7) 03/30/23 13:31 Albumin 4.3 g/dL (3.5-5.2) 03/30/23 13:31 Globulin 3.4 g/dL (1.3-4.6) 03/30/23 13:31 All radiology interpretation(s) finalized by discharge Discharge Plan Discharge Patient Disposition: Home Clinical Impression: Anxiety Condition: Stable Prescriptions: No Action (DME) Hospital bed, that folds See Rx Instructions .Route .MEDSUPPLY Qty: 1 0RF Rx Instructions: As directed prednisone 5 mg tablet 5 mg PO EVERY OTHER DAY Qty: 30 3RF pantoprazole 40 mg tablet,delayed release (DR/EC) 40 mg PO DAILY 30 Days Qty: 30 3RF metoprolol tartrate 25 mg tablet 12.5 mg PO BID 30 Days Qty: 30 5RF clonazepam 0.5 mg tablet 0.5 mg PO BID PRN (Reason: anxiety) 30 Days Qty: 60 2RF albuterol sulfate 90 mcg/actuation HFA aerosol inhaler 2 inh INHALATION Q4H PRN (Reason: shortness of breath or wheezing) Qty: 18 5RF fluoxetine 40 mg capsule 40 mg PO DAILY 30 Days Qty: 30 3RF Spiriva with HandiHaler 18 mcg capsule, w/inhalation device 1 cap inhalation DAILY 30 Days Qty: 30 5RF Rx Instructions: puncture 1 cap using device; one dose = 2 inhalations fluticasone propion-salmeterol [Advair Diskus] 500-50 mcg/dose blister with device 1 inh inhalation BID Qty: 60 0RF ipratropium-albuterol 0.5 mg-3 mg(2.5 mg base)/3 mL solution for nebulization 3 ml inhalation Q4H PRN (Reason: shortness of breath or wheezing) Qty: 90 0RF levothyroxine 125 mcg tablet 125 mcg PO DAILY Discharge Orders: Discharge ED (Routine); Ordered 03/30/23 Ordered By: Sorin Irving Referrals: Benjamin Gonzalez MD [Primary Care Provider] - Discharge Diet: Advance as tolerated Discharge Activity: Resume usual activity Patient Instructions: Opioid Safety, Pain Management Activity Restrictions/Additional Instructions: Activity Restrictions/Additional Instructions: Thank you for choosing [facility] for your healthcare needs today. Please realize that you were seen in the Emergency Department and that we are providing you with an emergency medical screening exam and this may not be a complete and all inclusive of all the testing and or medical work-up that you may need to determine your ailment or severity of your illness. It is very important that you follow-up as instructed with your Primary care provider or Specialist for additional evaluation and to discuss your medical treatment plan. You may return to the Emergency Department should you have concerns or if your condition changes or worsens in any way. It is very important that you consider discussing with case management possible placement for assisted living given your increased concerns about being without a support system once you are discharged. Coding Level of Care Code ED Teleservices Representative for Ji Melgar
--- NOTE | 2023-03-30 13:13 | XR_ITS ---
WS: [id number] XR chest 1V portable [id number] REASON FOR EXAM: Dyspnea FINDINGS: The chest is unchanged compared to 03/29/2023. Mild tortuosity of the thoracic aorta. Normal heart size. Calcified granulomas disease in both hemithoraces. No acute pulmonary parenchymal or pleural abnormality. Mild to moderate changes of degenerative spondylosis in the mid and lower thoracic spine. IMPRESSION: No acute chest abnormality.
[2023-03-30 13:40] LABS: ABG PCO2 47.7 mmHg (35-45); ABG PH Result 7.47 (7.35-7.45); Arterial Blood Gas Hematocrit 43.4 % (37-47); Base Excess ABG 9.2 mmol/L (-2.0-2.0); Blood Gas LPM 2.5 %; Blood Gas Operator Identificat AMH; Blood Gas Sample Site Brachial, right; Blood Gas Sample Type Arterial; Carboxyhemoglobin 1.4 %THgb (0.4-20.1); HCO3 ABG 34.4 mmol/L (22-26); HGB O2 Sat 92.7 % (95-100); Methemoglobin 0.3 % (0.4-1.5); Oxygen Device NC; PO2 ABG 61.5 mmHg (80.0-100.0); PO2 FiO2 Ratio Arterial Blood 0; Total Hemoglobin 14.2 g/dL (12-16)
[2023-03-30 13:46] LABS: Basophils # 0.1 10^3/uL (0.0-0.1); Basophils % 0.5 %; Eosinophils # 0.1 10^3/uL (0.0-0.8); Eosinophils % 1.1 %; Hematocrit 44.6 % (36-47); Lymphocytes # 1.7 10^3/uL (0.8-4.8); Lymphocytes % 13.6 %; Mean Corpuscular Hemoglobin 31.9 pg (27-33); Mean Corpuscular Volume 96.7 fl (85-98); Monocytes # 1.3 10^3/uL (0.2-0.9); Monocytes % 10.5 %; Neutrophils # 9.02 10^3/uL (1.8-7.7); Neutrophils % 73.8 %; Nucleated Red Blood Cells % 0 %; Platelet Count 461 10^3/cmm (157-399); Red Blood Count 4.61 10^6/uL (3.85-5.65); Red Cell Distribution Width 13.6 % (12.1-15.1); White Blood Count 12.22 10^3/uL (3.29-11.43)
[2023-03-30 14:00] VITALS: BP 146/80; PULSE 89; O2SAT 95
[2023-03-30 14:30] LABS: Alanine Aminotransferase 14 U/L (0-33); Albumin Level 4.3 g/dL (3.5-5.2); Alkaline Phosphatase 92 U/L (35-105); Anion Gap 18.7 (5-19); Aspartate Amino Transferase 27 U/L (0-32); Blood Urea Nitrogen 23 mg/dL (8-23); Calcium 10.1 mg/dL (8.5-10.5); Carbon Dioxide 31 mmol/L (22-29); Chloride 94 mmol/L (98-107); Globulin 3.4 g/dL (1.3-4.6); Glucose 101 mg/dL (65-115); Osmolality Calculated 292 mOsm/kg (285-295); Potassium 4.7 mmol/L (3.5-5.1); Sodium 139 mmol/L (136-145); Total Protein 7.7 g/dL (6.6-8.7)
[2023-03-30 14:31] LABS: NT Pro B Type Natriuretic Pept 68 pg/mL (0-125)
[2023-03-30 15:10] VITALS: BP 160/78; PULSE 100; O2SAT 97
== END 2023-03-30 15:11 | disposition home or self-care (01) ==
PROVIDERS: Emergency Provider Internal Medicine; PCP Family Medicine Adult Medicine
DX: F41.9 Anxiety disorder, unspecified (principal); Z87.891 Personal history of nicotine dependence; J44.89 Other specified chronic obstructive pulmonary disease
CPT/HCPCS: 36600; 71045; 80053; 82805; 83880; 85025; 99284

== ENCOUNTER 2023-03-31 11:25 | Emergency (ER) | payer MEDICARE, SELFPAY ==
--- NOTE | 2023-03-31 11:27 | W.ED.SOB ---
HPI - SOB/Dyspnea General: Chief Complaint: Shortness of Breath/Dyspnea Stated Complaint: RESP DISTRESS Time Seen by Provider: 03/31/23 11:27 History of Present Illness: HPI Narrative: 72-year-old female presents to the emergency department with complaints of shortness of breath. She is normally on 3 L of oxygen and continues to turn her supplemental home oxygen up to 6 L. Patient was seen yesterday in this emergency department and had a complete evaluation to include a chest x-ray laboratory evaluation and there were no significant findings that would support her presenting complaint today. She states that she feels short of breath but does not appear to be having any respiratory difficulty at present. She is on 3 L nasal cannula and her oxygen saturation is 96%. She does not have any increased work of breathing she does appear to be very anxious which is how she presents to the emergency department normally. Review of Systems General: Reports: 10 or more systems reviewed and unremarkable except in HPI and below Resp: Reports: dyspnea [facility] ED PFSH: Medical History Supplemental oxygen dependent Anxiety 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 attack Goals of care, counseling/discussion Asthma-COPD overlap syndrome Fibromyalgia syndrome MDD (major depressive disorder) Delusional disorder Chronic respiratory failure with hypoxia Panic anxiety syndrome Surgical History History of appendectomy History of hysterectomy History of cholecystectomy Hx of tonsillectomy Family History Other No pertinent family history Social History Smoking and tobacco/nicotine status: former use of tobacco/nicotine Quit status (tobacco/nicotine): has quit using Year quit tobacco: 2015 - 1PPD x 40 Years Alcohol intake: never Substance/Drug Use: never Lives independently: Yes Household members: none Current occupational status: disabled Pets and animals: Yes Pets & animals: dog(s) Do you think of yourself as: Straight/Heterosexual Current gender identity: Female Physical Exam Narrative: EXAM NARRATIVE: Constitutional: the patient appears well nourished and with normal development. Vital signs reviewed as documented. HENMT: Normocephalic, atraumatic. Extermal ears with normal appearance without drainage. Nose without drainage, normal appearance. Mucus membranes moist. Neck is supple, No jugular venous distension, trachea is midline, no appreciable carotid bruits. No lymphadenopathy. No meningeal signs. Flexion, extension and lateral rotation is without pain. Eyes: Pupils are equal, round, reactive to light and accommodation. No scleral icterus. Extra-ocular movement are intact. Thorax is symmetrical and with equal rise and fall with respirations. Resp: Lungs are clear to auscultation. No wheezes, rales, crackles or ronchi at present. No increased work of breathing currently on 6 L nasal cannula I have turned her down to 3 L nasal cannula and educated her extensively regarding the importance of maintaining her 3 L nasal cannula supplemental oxygen usage. Cardio: Regular rate and rhythm. Positive S1, S2. No appreciable murmurs, rubs or gallops. GI: Abdominal exam reveals normal bowel sounds to all quadrants. No organomegaly. No obvious palpable masses noted. No hepatomegally appreciated. Soft, nontender to palpation. Extremity: Extremities are non-edematous and both femoral and pedal pulses are 2+ and equal bilaterally. Moves all extremities well, sensation in all extremities. Neuro: Alert and oriented x4, person, place, time and situation. Cranial nerves II through XII are grossly intact, there is no focal neurological deficits that I can appreciate at present. Motor strength in the upper and lower extremities are equal and bilateral 5/5. Psych: Cooperative, calm, normal thought process, appropriate judgment. Skin: No lesions, rashes. No gross abnormalities noted. Back: Symmetrical, no obvious deformity, No CVA tenderness Course Vital Signs: Vital signs: Vital Signs Pulse Rate 110 H 03/31/23 11:28 Respiratory Rate 20 H 03/31/23 11:28 Blood Pressure 153/88 03/31/23 11:28 Pulse Oximetry 100 03/31/23 11:28 Oxygen Flow Rate 6 03/31/23 11:28 MDM - SOB/Dyspnea Medical Decision Making 72-year-old female well-known to this emergency department presents with complaints of shortness of breath. She was seen yesterday in this emergency department for the exact same complaint. The patient has been seen every day for the previous 5 days. Patient does not appear to be in any acute distress her oxygen level on 3 L nasal cannula is 96% at present. I will obtain a chest x-ray I have reviewed the previous medical records given the patient's negative findings yesterday she will most likely be discharged home I have requested on 3 occasions that case management contact the patient regarding long-term placement as her repeated presentation to the emergency department clearly demonstrates that she is unable to care for herself which causes her to be significantly anxious and ultimately overutilize both the emergency medical services and the emergency department. This patient would be much better served in an assisted living or a long-term care facility where she had other individuals that she could interact with and they could help curb her anxiety of being alone. Medical Records I reviewed the patient's medical records. Lab Data I reviewed the patient's lab results. Labs/Radiology: Radiology Impressions Chest X-Ray 03/31/23 11:32 IMPRESSION: No acute findings. Laboratory Results Specimen Type Arterial 03/31/23 11:51 Sample Site Brachial, left 03/31/23 11:51 ABG pH 7.44 (7.35-7.45) 03/31/23 11:51 ABG pCO2 49.1 mmHg (35-45) H 03/31/23 11:51 ABG pO2 83.2 mmHg (80.0-100.0) 03/31/23 11:51 ABG PO2/FiO2 Ratio 0 03/31/23 11:51 ABG HCO3 33.5 mmol/L (22-26) H 03/31/23 11:51 ABG O2 Saturation 97.4 03/31/23 11:51 ABG Base Excess 7.9 mmol/L (-2.0-2.0) H 03/31/23 11:51 Stephen Test Pos 03/31/23 11:51 A-a O2 Gradient 14.7 mmHg (5-10) H 03/31/23 11:51 Hematocrit 44.0 % (37-47) 03/31/23 11:51 Hgb O2 Saturation 96.5 % (95-100) 03/31/23 11:51 Carboxyhemoglobin 0.6 %THgb (0.4-20.1) 03/31/23 11:51 Methemoglobin 0.2 % (0.4-1.5) L 03/31/23 11:51 Total Hemoglobin 14.3 g/dL (12-16) 03/31/23 11:51 Sodium 142.0 mmol/L (131-143) 03/31/23 11:51 Potassium 3.6 mmol/L (3.5-5.0) 03/31/23 11:51 Glucose 126.0 mg/dL (70-115) H 03/31/23 11:51 Ionized Calcium 1.2 mmol/L (1.1-1.4) 03/31/23 11:51 O2 Delivery Device Nc 03/31/23 11:51 O2 Liters/Min 4.0 % 03/31/23 11:51 FiO2 36.0 % 03/31/23 11:51 Door Liner ID Cak 03/31/23 11:51 All radiology interpretation(s) finalized by discharge Discharge Plan Discharge Patient Disposition: Home Clinical Impression: Anxiety COPD (chronic obstructive pulmonary disease) Qualifiers: COPD type: emphysema Emphysema type: unspecified Qualified Code(s): J43.9 - Emphysema, unspecified Prescriptions: No Action (DME) Hospital bed, that folds See Rx Instructions .Route .MEDSUPPLY Qty: 1 0RF Rx Instructions: As directed prednisone 5 mg tablet 5 mg PO EVERY OTHER DAY Qty: 30 3RF pantoprazole 40 mg tablet,delayed release (DR/EC) 40 mg PO DAILY 30 Days Qty: 30 3RF metoprolol tartrate 25 mg tablet 12.5 mg PO BID 30 Days Qty: 30 5RF clonazepam 0.5 mg tablet 0.5 mg PO BID PRN (Reason: anxiety) 30 Days Qty: 60 2RF albuterol sulfate 90 mcg/actuation HFA aerosol inhaler 2 inh INHALATION Q4H PRN (Reason: shortness of breath or wheezing) Qty: 18 5RF fluoxetine 40 mg capsule 40 mg PO DAILY 30 Days Qty: 30 3RF fluticasone propion-salmeterol [Advair Diskus] 500-50 mcg/dose blister with device 1 inh inhalation BID Qty: 60 0RF ipratropium-albuterol 0.5 mg-3 mg(2.5 mg base)/3 mL solution for nebulization 3 ml inhalation Q4H PRN (Reason: shortness of breath or wheezing) Qty: 90 0RF levothyroxine 125 mcg tablet 125 mcg PO DAILY Discharge Orders: Discharge ED (Routine); Ordered 03/31/23 Ordered By: Sorin Irving Referrals: Benjamin Gonzalez MD [Primary Care Provider] - Discharge Diet: Advance as tolerated Discharge Activity: Resume usual activity Patient Instructions: Opioid Safety, Pain Management Activity Restrictions/Additional Instructions: Activity Restrictions/Additional Instructions: Thank you for choosing [facility] for your healthcare needs today. Please realize that you were seen in the Emergency Department and that we are providing you with an emergency medical screening exam and this may not be a complete and all inclusive of all the testing and or medical work-up that you may need to determine your ailment or severity of your illness. It is very important that you follow-up as instructed with your Primary care provider or Specialist for additional evaluation and to discuss your medical treatment plan. You may return to the Emergency Department should you have concerns or if your condition changes or worsens in any way. Coding Level of Care Code ED Coverstitch Binder for Ji Melgar
[2023-03-31 11:28] VITALS: BP 153/88; PULSE 110; RESP 20; O2SAT 100
--- NOTE | 2023-03-31 11:32 | XRR_ITS ---
PROCEDURE INFORMATION: Exam: XR Chest Exam date and time: 03/31/2023 11:37 AM Age: 72 years old Clinical indication: Dyspnea; Patient HX: Copd; SOB TECHNIQUE: Imaging protocol: Radiologic exam of the chest. Views: 1 view. COMPARISON: CR XR chest 1V portable [id number] 03/30/2023 2:11 PM FINDINGS: Lungs: No consolidation. Pleural spaces: No pleural effusion. No pneumothorax. Heart/Mediastinum: No cardiomegaly. Bones/joints: No acute findings. XR/XR chest 1V portable [id number] IMPRESSION: No acute findings.
[2023-03-31 12:02] LABS: ABG PCO2 49.1 mmHg (35-45); ABG PH Result 7.44 (7.35-7.45); Alveolar-Arterial Oxygen Gradi 14.7 mmHg (5-10); Base Excess ABG 7.9 mmol/L (-2.0-2.0); Blood Gas Allen Test Pos; Blood Gas Operator Identificat CAK; Blood Gas Sample Site Brachial, left; Blood Gas Sample Type Arterial; Carboxyhemoglobin 0.6 %THgb (0.4-20.1); HCO3 ABG 33.5 mmol/L (22-26); HGB O2 Sat 96.5 % (95-100); Ionized Calcium Level - ABG 1.2 mmol/L (1.1-1.4); Methemoglobin 0.2 % (0.4-1.5); Oxygen Device NC; Oxygen Saturation ABG 97.4; PO2 ABG 83.2 mmHg (80.0-100.0); PO2 FiO2 Ratio Arterial Blood 0; Potassium Level - ABG 3.6 mmol/L (3.5-5.0); Total Hemoglobin 14.3 g/dL (12-16)
[2023-03-31 13:09] VITALS: RESP 17; O2SAT 97
== END 2023-03-31 12:30 | disposition home or self-care (01) ==
PROVIDERS: Emergency Provider Internal Medicine; PCP Family Medicine Adult Medicine
DX: J43.9 Emphysema, unspecified (principal); F41.9 Anxiety disorder, unspecified; J44.89 Other specified chronic obstructive pulmonary disease; Z87.891 Personal history of nicotine dependence
CPT/HCPCS: 36600; 71045; 80051; 82330; 82805; 99284

== ENCOUNTER 2023-03-31 17:44 | Emergency (ER) | payer MEDICARE, SELFPAY ==
[2023-03-31 17:52] VITALS: BP 148/94; PULSE 115; RESP 18; TEMP 36.8; O2SAT 100
--- NOTE | 2023-03-31 17:57 | XRR_ITS ---
PROCEDURE INFORMATION: Exam: XR Chest Exam date and time: 03/31/2023 6:07 PM Age: 72 years old Clinical indication: Shortness of breath; Patient HX: C/O SOB. History of copd. ; Additional info: Dyspnea/cough TECHNIQUE: Imaging protocol: Radiologic exam of the chest. Views: 1 view. COMPARISON: CR (CHEST, ) 03/31/2023 11:37 AM FINDINGS: Lungs: Minimal bibasilar atelectasis versus early infiltrate. Pleural spaces: Unremarkable. No pleural effusion. No pneumothorax. Heart/Mediastinum: Unremarkable. No cardiomegaly. Bones/joints: Unremarkable. XR/XR chest 1V portable [id number] IMPRESSION: Minimal bibasilar atelectasis versus early infiltrate.
--- NOTE | 2023-03-31 17:57 | ECG_ITS ---
[facility] Test Date: 2023-03-31 Pat Name: Socorro Montes De Oca Department: Room: Gender: Female Clinical Therapist: : 1950 Requested By: Alex Scales Order Number: [id number] Octavio MD: Jamaal Drummond M.D. Measurements Intervals Max Rate: 104 P: 83 DC: 130 QRS: 62 QRSD: 80 T: 76 QT: 331 QTc: 437 Interpretive Statements SINUS TACHYCARDIA WITH OCCASIONAL SUPRAVENTRICULAR PREMATURE COMPLEXES POSSIBLE RIGHT VENTRICULAR CONDUCTION DELAY [RSR (QR) IN V1/V2] Compared to ECG 03/29/2023 12:45:16 No significant changes Electronically Signed On 04-02-2023 7:56:38 GLUER MACHINE SETUP OPERATOR by Jamaal Drummond M.D. [email or web address] hospital [email or web address]/store/[id number]
--- NOTE | 2023-03-31 17:58 | ED_ITS ---
Documented by User: Alex Romero DO 03/31/23 18:40 HPI - SOB/Dyspnea 2 General: Chief Complaint: Shortness of Breath/Dyspnea Stated Complaint: SOB; ANXIETY Time Seen by Provider: 03/31/23 17:45 Source: patient Mode of arrival: EMS History of Present Illness: HPI Narrative: 72-year-old female with history of COPD and anxiety presents emergency room today with complaints of shortness of breath. She was given Versed, Solu-Medrol and nebulizer treatments in route. She has been here daily for the last couple of days. She was here last night as well. She been tested since several times in the past for flu and COVID and these have all been negative. She has been admitted at times in the past but made multiple efforts to have her admitted to a [facility] to try to manage her long-term she refuses because she has a little dog she wants to keep with her. Believe 1 time she was admitted to the [facility] from hospitalization left shortly after arriving there. When we seen her 2 days ago we did titrate her oxygen down and her oxygen sats remained adequate on 2 L she usually is on 4 to 6 L by nasal cannula she also is fixated on having her nasal cannula in her mouth at all times. MD elicited complaint: shortness of breath and cough Pertinent past history: COPD Onset (ago): hour(s) Timing: constant Severity: moderate Exacerbating factors: nothing Relieving factors: nothing Known history of: COPD Associated symptoms: Deny abdominal pain, chest congestion, chest pain, cough, diaphoresis, dizziness, extremity pain, fever(s), hemoptysis, lightheadedness, myalgias, nausea, orthopnea, palpitations, paresthesias, polydipsia, polyuria, rash, sense of impending doom, syncope or vomiting Treatment prior to arrival: none Review of Systems 2 Const: Denies: fever(s) or diaphoresis Card: Denies: chest pain, palpitations, lightheadedness, syncope or orthopnea Resp: Reports: dyspnea, non-productive cough and wheezing; Denies: hemoptysis or chest congestion GI: Denies: abdominal pain, nausea or vomiting : Denies: dysuria, urinary frequency or urinary urgency Musc: Denies: extremity pain Skin/Breast: Denies: rash Neuro: Denies: dizziness Endo: Denies: polyuria or polydipsia PFSH ED 2 PFSH: Medical History Supplemental oxygen dependent Anxiety 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 attack Goals of care, counseling/discussion Asthma-COPD overlap syndrome Fibromyalgia syndrome MDD (major depressive disorder) Delusional disorder Chronic respiratory failure with hypoxia Panic anxiety syndrome Surgical History History of appendectomy History of hysterectomy History of cholecystectomy Hx of tonsillectomy Family History Other No pertinent family history Social History Smoking and tobacco/nicotine status: former use of tobacco/nicotine Quit status (tobacco/nicotine): has quit using Year quit tobacco: 2015 - 1PPD x 40 Years Alcohol intake: never Substance/Drug Use: never Lives independently: Yes Household members: none Current occupational status: disabled Pets and animals: Yes Pets & animals: dog(s) Do you think of yourself as: Straight/Heterosexual Current gender identity: Female Physical Exam 2 Const: GENERAL APPEARANCE: cooperative and comfortable O RIENTATION/CONSCIOUSNESS: Yes awake HENMT: COMMON NORMALS: normocephalic, atraumatic and hearing grossly normal bilaterally HEAD & SCALP: normocephalic and atraumatic Resp: COMMON NORMALS: normal respiratory effort, No retractions and No use of accessory muscles AUSCULTATION: wheezes and diminished lung sounds Cardio: COMMON NORMALS: regular rate, regular rhythm and No murmurs present (Cardio) RATE: regular rate RHYTHM: regular rhythm GI: COMMON NORMALS: Soft to palpation and No hepatosplenomegaly present A USCULTATION: Yes normoactive bowel sounds PALPATION: Yes Soft to palpation, No Tenderness to palpation present (GI), No Guarding due to palpation present (GI) and Yes No hepatosplenomegaly present Extremity: COMMON NORMALS: normal to inspection, capillary refill normal, no clubbing, cyanosis or edema, no calf tenderness and no pedal edema Skin: COMMON NORMALS: no rashes or lesions noted GENERAL SKIN EXAM: no rashes or lesions noted Course 2 Vital Signs: Vital signs: Vital Signs Temperature 98.3 F 03/31/23 17:52 Pulse Rate 104 H 03/31/23 18:36 Respiratory Rate 20 H 03/31/23 18:34 Blood Pressure 148/94 03/31/23 17:52 Pulse Oximetry 94 03/31/23 18:34 Oxygen Delivery Me thod Nasal Cannula 03/31/23 18:34 Oxygen Flow Rate 2 03/31/23 18:34 MDM - SOB/Dyspnea Medical Decision Making Care signed out to Dr. Calderon at change of shift. See final notes for diagnosis and disposition. Medical Records I reviewed the patient's medical records. Lab Data I reviewed the patient's lab results. 03/31/23 18:09 03/31/23 18:09 Labs/Radiology: Radiology Impressions Chest X-Ray 03/31/23 17:57 IMPRESSION: Minimal bibasilar atelectasis versus early infiltrate. Laboratory Results WBC 9.14 10^3/uL (3.29-11.43) 03/31/23 18:09 RBC 4.41 10^6/uL (3.85-5.65) 03/31/23 18:09 Hgb 13.90 g/dL (11.27-16.99) 03/31/23 18:09 Hct 43.2 % (36-47) 03/31/23 18:09 MCV 98.0 fl (85-98) 03/31/23 18:09 MCH 31.5 pg (27-33) 03/31/23 18:09 MCHC 32.2 g/dL (30-55) 03/31/23 18:09 RDW 13.4 % (12.1-15.1) 03/31/23 18:09 Plt Count 360 10^3/cmm (157-399) 03/31/23 18:09 MPV 10.3 fL (7.4-10.4) 03/31/23 18:09 Neut % (Auto) 58.7 % 03/31/23 18:09 Lymph % (Auto) 22.4 % 03/31/23 18:09 [place] % (Auto) 13.8 % 03/31/23 18:09 Eos % (Auto) 3.5 % 03/31/23 18:09 Baso % (Auto) 1.1 % 03/31/23 18:09 Neut # (Auto) 5.36 10^3/uL (1.8-7.7) 03/31/23 18:09 Lymph # (Auto) 2.1 10^3/uL (0.8-4.8) 03/31/23 18:09 [place] # (Auto) 1.3 10^3/uL (0.2-0.9) H 03/31/23 18:09 Eos # (Auto) 0.3 10^3/uL (0.0-0.8) 03/31/23 18:09 Baso # (Auto) 0.1 10^3/uL (0.0-0.1) 03/31/23 18:09 Nucleated RBC % (auto) 0 % 03/31/23 18:09 Nucleated RBCs # 0.0 /100WBC 03/31/23 18:09 Specimen Type Arterial 03/31/23 18:06 Sample Site Brachial, left 03/31/23 18:06 ABG pH 7.41 (7.35-7.45) 03/31/23 18:06 ABG pCO2 53.8 mmHg (35-45) H 03/31/23 18:06 ABG pO2 62.6 mmHg (80.0-100.0) L 03/31/23 18:06 ABG PO2/FiO2 Ratio 0 03/31/23 18:06 ABG HCO3 34.1 mmol/L (22-26) H 03/31/23 18:06 ABG O2 Saturation 92.9 03/31/23 18:06 ABG Base Excess 7.7 mmol/L (-2.0-2.0) H 03/31/23 18:06 Stephen Test Pos 03/31/23 18:06 A-a O2 Gradient 9.4 mmHg (5-10) 03/31/23 18:06 Hematocrit 43.4 % (37-47) 03/31/23 18:06 Hgb O2 Saturation 92.0 % (95-100) L 03/31/23 18:06 Carboxyhemoglobin 0.8 %THgb (0.4-20.1) 03/31/23 18:06 Methemoglobin 0.2 % (0.4-1.5) L 03/31/23 18:06 Total Hemoglobin 14.2 g/dL (12-16) 03/31/23 18:06 Sodium 143.0 mmol/L (131-143) 03/31/23 18:06 Potassium 3.5 mmol/L (3.5-5.0) 03/31/23 18:06 Glucose 101.0 mg/dL (70-115) 03/31/23 18:06 Ionized Calcium 1.2 mmol/L (1.1-1.4) 03/31/23 18:06 O2 Delivery Device Nc 03/31/23 18:06 O2 Liters/Min 2.0 % 03/31/23 18:06 FiO2 28.0 % 03/31/23 18:06 Astronomy Instructor ID Cak 03/31/23 18:06 Sodium 140 mmol/L (136-145) 03/31/23 18:09 Potassium 3.8 mmol/L (3.5-5.1) 03/31/23 18:09 Chloride 99 mmol/L (98-107) 03/31/23 18:09 Carbon Dioxide 28 mmol/L (22-29) 03/31/23 18:09 Anion Gap 16.8 (5-19) 03/31/23 18:09 BUN 20 mg/dL (8-23) 03/31/23 18:09 Creatinine 0.5 mg/dL (0.5-0.9) 03/31/23 18:09 GFR Calculation Not Reportable 03/31/23 18:09 Glucose 101 mg/dL (65-115) 03/31/23 18:09 Calculated Osmolality 293 mOsm/kg (285-295) 03/31/23 18:09 Calcium 9.8 mg/dL (8.5-10.5) 03/31/23 18:09 Total Bilirubin 0.6 mg/dL (0.15-1.2) 03/31/23 18:09 AST 20 U/L (0-32) 03/31/23 18:09 ALT 11 U/L (0-33) 03/31/23 18:09 Alkaline Phosphatase 84 U/L (35-105) 03/31/23 18:09 Total Protein 7.0 g/dL (6.6-8.7) 03/31/23 18:09 Albumin 3.8 g/dL (3.5-5.2) 03/31/23 18:09 Globulin 3.2 g/dL (1.3-4.6) 03/31/23 18:09 XR interpretation done by ED provider, pending radiology final review Discharge Plan Discharge Patient Disposition: Home Clinical Impression: Chronic respiratory failure with hypoxia Condition: Stable Prescriptions: Continued clonazepam 0.5 mg tablet 0.5 mg PO BID PRN (Reason: anxiety) 30 Days Qty: 8 2RF No Action (DME) Hospital bed, that folds See Rx Instructions .Route .MEDSUPPLY Qty: 1 0RF Rx Instructions: As directed prednisone 5 mg tablet 5 mg PO EVERY OTHER DAY Qty: 30 3RF pantoprazole 40 mg tablet,delayed release (DR/EC) 40 mg PO DAILY 30 Days Qty: 30 3RF metoprolol tartrate 25 mg tablet 12.5 mg PO BID 30 Days Qty: 30 5RF albuterol sulfate 90 mcg/actuation HFA aerosol inhaler 2 inh INHALATION Q4H PRN (Reason: shortness of breath or wheezing) Qty: 18 5RF fluoxetine 40 mg capsule 40 mg PO DAILY 30 Days Qty: 30 3RF fluticasone propion-salmeterol [Advair Diskus] 500-50 mcg/dose blister with device 1 inh inhalation BID Qty: 60 0RF ipratropium-albuterol 0.5 mg-3 mg(2.5 mg base)/3 mL solution for nebulization 3 ml inhalation Q4H PRN (Reason: shortness of breath or wheezing) Qty: 90 0RF levothyroxine 125 mcg tablet 125 mcg PO DAILY Discharge Orders: Discharge ED (Routine); Ordered 03/31/23 Ordered By: Ron Calderon Referrals: Benjamin Gonzalez MD [Primary Care Provider] - 4-7 days Patient Instructions: COPD (Chronic Obstructive Pulmonary Disease) (ED), Anxiety (ED), Opioid Safety, Pain Management Coding Level of Care Code ED Steward/Stewardess Dining Room for Chg Fwd Documented by User: Ron Calderon DO 03/31/23 21:45 HPI - SOB/Dyspnea 2 General: Chief Complaint: Shortness of Breath/Dyspnea Stated Complaint: SOB; ANXIETY Time Seen by Provider: 03/31/23 17:45 PFSH ED 2 PFSH: Medical History Supplemental oxygen dependent Anxiety 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 attack Goals of care, counseling/discussion Asthma-COPD overlap syndrome Fibromyalgia syndrome MDD (major depressive disorder) Delusional disorder Chronic respiratory failure with hypoxia Panic anxiety syndrome Surgical History History of appendectomy History of hysterectomy History of cholecystectomy Hx of tonsillectomy Family History Other No pertinent family history Social History Smoking and tobacco/nicotine status: former use of tobacco/nicotine Quit status (tobacco/nicotine): has quit using Year quit tobacco: 2015 - 1PPD x 40 Years Alcohol intake: never Substance/Drug Use: never Lives independently: Yes Household members: none Current occupational status: disabled Pets and animals: Yes Pets & animals: dog(s) Do you think of yourself as: Straight/Heterosexual Current gender identity: Female Course 2 Vital Signs: Vital signs: Vital Signs Temperature 98.3 F 03/31/23 17:52 Pulse Rate 104 H 03/31/23 18:36 Respiratory Rate 20 H 03/31/23 18:34 Blood Pressure 148/94 03/31/23 17:52 Pulse Oximetry 94 03/31/23 18:34 Oxygen Delivery Me thod Nasal Cannula 03/31/23 18:34 Oxygen Flow Rate 2 03/31/23 18:34 MDM - SOB/Dyspnea Medical Decision Making Care signed out to Dr. Calderon at change of shift. See final notes for diagnosis and disposition. Received in checkout at shift change. This patient's blood gas is well compensated. BMP is normal CBC is normal. She has bibasilar atelectasis present on chest x-ray. Her oxygenation is excellent on 2 L here. She is demanding to go home. Evidently, her anxiety medication has run out. She will be prescribed a small amount until she can get into see her doctor. Close outpatient follow-up. Lab Data 03/31/23 18:09 03/31/23 18:09 Labs/Radiology: Radiology Impressions Chest X-Ray 03/31/23 17:57 IMPRESSION: Minimal bibasilar atelectasis versus early infiltrate. Laboratory Results WBC 9.14 10^3/uL (3.29-11.43) 03/31/23 18:09 RBC 4.41 10^6/uL (3.85-5.65) 03/31/23 18:09 Hgb 13.90 g/dL (11.27-16.99) 03/31/23 18:09 Hct 43.2 % (36-47) 03/31/23 18:09 MCV 98.0 fl (85-98) 03/31/23 18:09 MCH 31.5 pg (27-33) 03/31/23 18:09 MCHC 32.2 g/dL (30-55) 03/31/23 18:09 RDW 13.4 % (12.1-15.1) 03/31/23 18:09 Plt Count 360 10^3/cmm (157-399) 03/31/23 18:09 MPV 10.3 fL (7.4-10.4) 03/31/23 18:09 Neut % (Auto) 58.7 % 03/31/23 18:09 Lymph % (Auto) 22.4 % 03/31/23 18:09 [place] % (Auto) 13.8 % 03/31/23 18:09 Eos % (Auto) 3.5 % 03/31/23 18:09 Baso % (Auto) 1.1 % 03/31/23 18:09 Neut # (Auto) 5.36 10^3/uL (1.8-7.7) 03/31/23 18:09 Lymph # (Auto) 2.1 10^3/uL (0.8-4.8) 03/31/23 18:09 [place] # (Auto) 1.3 10^3/uL (0.2-0.9) H 03/31/23 18:09 Eos # (Auto) 0.3 10^3/uL (0.0-0.8) 03/31/23 18:09 Baso # (Auto) 0.1 10^3/uL (0.0-0.1) 03/31/23 18:09 Nucleated RBC % (auto) 0 % 03/31/23 18:09 Nucleated RBCs # 0.0 /100WBC 03/31/23 18:09 Specimen Type Arterial 03/31/23 18:06 Sample Site Brachial, left 03/31/23 18:06 ABG pH 7.41 (7.35-7.45) 03/31/23 18:06 ABG pCO2 53.8 mmHg (35-45) H 03/31/23 18:06 ABG pO2 62.6 mmHg (80.0-100.0) L 03/31/23 18:06 ABG PO2/FiO2 Ratio 0 03/31/23 18:06 ABG HCO3 34.1 mmol/L (22-26) H 03/31/23 18:06 ABG O2 Saturation 92.9 03/31/23 18:06 ABG Base Excess 7.7 mmol/L (-2.0-2.0) H 03/31/23 18:06 Stephen Test Pos 03/31/23 18:06 A-a O2 Gradient 9.4 mmHg (5-10) 03/31/23 18:06 Hematocrit 43.4 % (37-47) 03/31/23 18:06 Hgb O2 Saturation 92.0 % (95-100) L 03/31/23 18:06 Carboxyhemoglobin 0.8 %THgb (0.4-20.1) 03/31/23 18:06 Methemoglobin 0.2 % (0.4-1.5) L 03/31/23 18:06 Total Hemoglobin 14.2 g/dL (12-16) 03/31/23 18:06 Sodium 143.0 mmol/L (131-143) 03/31/23 18:06 Potassium 3.5 mmol/L (3.5-5.0) 03/31/23 18:06 Glucose 101.0 mg/dL (70-115) 03/31/23 18:06 Ionized Calcium 1.2 mmol/L (1.1-1.4) 03/31/23 18:06 O2 Delivery Device Nc 03/31/23 18:06 O2 Liters/Min 2.0 % 03/31/23 18:06 FiO2 28.0 % 03/31/23 18:06 Astronomy Instructor ID Cak 03/31/23 18:06 Sodium 140 mmol/L (136-145) 03/31/23 18:09 Potassium 3.8 mmol/L (3.5-5.1) 03/31/23 18:09 Chloride 99 mmol/L (98-107) 03/31/23 18:09 Carbon Dioxide 28 mmol/L (22-29) 03/31/23 18:09 Anion Gap 16.8 (5-19) 03/31/23 18:09 BUN 20 mg/dL (8-23) 03/31/23 18:09 Creatinine 0.5 mg/dL (0.5-0.9) 03/31/23 18:09 GFR Calculation Not Reportable 03/31/23 18:09 Glucose 101 mg/dL (65-115) 03/31/23 18:09 Calculated Osmolality 293 mOsm/kg (285-295) 03/31/23 18:09 Calcium 9.8 mg/dL (8.5-10.5) 03/31/23 18:09 Total Bilirubin 0.6 mg/dL (0.15-1.2) 03/31/23 18:09 AST 20 U/L (0-32) 03/31/23 18:09 ALT 11 U/L (0-33) 03/31/23 18:09 Alkaline Phosphatase 84 U/L (35-105) 03/31/23 18:09 Total Protein 7.0 g/dL (6.6-8.7) 03/31/23 18:09 Albumin 3.8 g/dL (3.5-5.2) 03/31/23 18:09 Globulin 3.2 g/dL (1.3-4.6) 03/31/23 18:09 Discharge Plan Discharge Patient Disposition: Home Clinical Impression: Chronic respiratory failure with hypoxia Condition: Stable Prescriptions: Continued clonazepam 0.5 mg tablet 0.5 mg PO BID PRN (Reason: anxiety) 30 Days Qty: 8 2RF No Action (DME) Hospital bed, that folds See Rx Instructions .Route .MEDSUPPLY Qty: 1 0RF Rx Instructions: As directed prednisone 5 mg tablet 5 mg PO EVERY OTHER DAY Qty: 30 3RF pantoprazole 40 mg tablet,delayed release (DR/EC) 40 mg PO DAILY 30 Days Qty: 30 3RF metoprolol tartrate 25 mg tablet 12.5 mg PO BID 30 Days Qty: 30 5RF albuterol sulfate 90 mcg/actuation HFA aerosol inhaler 2 inh INHALATION Q4H PRN (Reason: shortness of breath or wheezing) Qty: 18 5RF fluoxetine 40 mg capsule 40 mg PO DAILY 30 Days Qty: 30 3RF fluticasone propion-salmeterol [Advair Diskus] 500-50 mcg/dose blister with device 1 inh inhalation BID Qty: 60 0RF ipratropium-albuterol 0.5 mg-3 mg(2.5 mg base)/3 mL solution for nebulization 3 ml inhalation Q4H PRN (Reason: shortness of breath or wheezing) Qty: 90 0RF levothyroxine 125 mcg tablet 125 mcg PO DAILY Discharge Orders: Discharge ED (Routine); Ordered 03/31/23 Ordered By: Ron Calderon Referrals: Benjamin Gonzalez MD [Primary Care Provider] - 4-7 days Patient Instructions: COPD (Chronic Obstructive Pulmonary Disease) (ED), Anxiety (ED), Opioid Safety, Pain Management Coding Level of Care Code ED Steward/Stewardess Dining Room for Ji Melgar
[2023-03-31 18:13] LABS: Basophils # 0.1 10^3/uL (0.0-0.1); Basophils % 1.1 %; Eosinophils # 0.3 10^3/uL (0.0-0.8); Eosinophils % 3.5 %; Hematocrit 43.2 % (36-47); Lymphocytes # 2.1 10^3/uL (0.8-4.8); Lymphocytes % 22.4 %; Mean Corpuscular HGB Conc 32.2 g/dL (30-55); Mean Corpuscular Hemoglobin 31.5 pg (27-33); Mean Platelet Volume 10.3 fL (7.4-10.4); Monocytes # 1.3 10^3/uL (0.2-0.9); Monocytes % 13.8 %; Neutrophils # 5.36 10^3/uL (1.8-7.7); Neutrophils % 58.7 %; Nucleated Red Blood Cells % 0 %; Platelet Count 360 10^3/cmm (157-399); Red Blood Count 4.41 10^6/uL (3.85-5.65); Red Cell Distribution Width 13.4 % (12.1-15.1); White Blood Count 9.14 10^3/uL (3.29-11.43)
[2023-03-31 18:17] LABS: ABG PCO2 53.8 mmHg (35-45); ABG PH Result 7.41 (7.35-7.45); Alveolar-Arterial Oxygen Gradi 9.4 mmHg (5-10); Arterial Blood Gas Hematocrit 43.4 % (37-47); Base Excess ABG 7.7 mmol/L (-2.0-2.0); Blood Gas Allen Test Pos; Blood Gas Operator Identificat CAK; Blood Gas Sample Site Brachial, left; Blood Gas Sample Type Arterial; Carboxyhemoglobin 0.8 %THgb (0.4-20.1); HCO3 ABG 34.1 mmol/L (22-26); Ionized Calcium Level - ABG 1.2 mmol/L (1.1-1.4); Methemoglobin 0.2 % (0.4-1.5); Oxygen Device NC; Oxygen Saturation ABG 92.9; PO2 ABG 62.6 mmHg (80.0-100.0); PO2 FiO2 Ratio Arterial Blood 0; Potassium Level - ABG 3.5 mmol/L (3.5-5.0); Total Hemoglobin 14.2 g/dL (12-16)
[2023-03-31 18:33] LABS: Alanine Aminotransferase 11 U/L (0-33); Albumin Level 3.8 g/dL (3.5-5.2); Alkaline Phosphatase 84 U/L (35-105); Blood Urea Nitrogen 20 mg/dL (8-23); Calcium 9.8 mg/dL (8.5-10.5); Carbon Dioxide 28 mmol/L (22-29); Chloride 99 mmol/L (98-107); Globulin 3.2 g/dL (1.3-4.6); Glucose 101 mg/dL (65-115); Osmolality Calculated 293 mOsm/kg (285-295); Sodium 140 mmol/L (136-145); Total Bilirubin 0.6 mg/dL (0.15-1.2)
[2023-03-31 18:34] VITALS: PULSE 101; RESP 20; O2SAT 94
[2023-03-31] MEDS: ipratropium-albuterol 3 mL Neb INHALATION (18:34)
[2023-03-31 18:36] VITALS: PULSE 104
[2023-03-31 18:46] LABS: Anion Gap 16.8 (5-19); Aspartate Amino Transferase 20 U/L (0-32); Potassium 3.8 mmol/L (3.5-5.1)
[2023-03-31] MEDS: ALPRAZolam 0.5 mg Tablet PO (19:46)
--- NOTE | 2023-03-31 19:55 | PC.NURSE ---
Pt. yelling in the room GET ME OUT OF HERE NOW. I told her that I would go speak to the doctor about her release and she shouted NO, GET ME OUT OF HERE NOW, I WILL TELL HIM! I spoke with Dr. Calderon and he states that he will discarge her. Pt. given oxygen tank temporarily to wait on her ride in the lobby. Pt. is in the lobby and is yelling call car tender , now.
== END 2023-03-31 19:58 | disposition home or self-care (01) ==
PROVIDERS: Family Medicine; Emergency Provider Emergency Medicine; PCP Family Medicine Adult Medicine
DX: J96.11 Chronic respiratory failure with hypoxia (principal); Z87.891 Personal history of nicotine dependence; J44.89 Other specified chronic obstructive pulmonary disease; F43.9 Reaction to severe stress, unspecified; F41.9 Anxiety disorder, unspecified
CPT/HCPCS: 36415; 36600; 71045; 80051; 80053; 82330; 82805; 85025; 93005; 94640; 99284; 99285

== ENCOUNTER 2023-04-02 12:30 | Emergency (ER) | payer MEDICARE, SELFPAY ==
[2023-04-02 12:38] VITALS: BP 140/82; PULSE 97; TEMP 36.4; O2SAT 97; BMI 23.4
--- NOTE | 2023-04-02 12:49 | ED_ITS ---
HPI - SOB/Dyspnea General: Chief Complaint: Shortness of Breath/Dyspnea Stated Complaint: sob Time Seen by Provider: 04/02/23 12:32 Source: patient and EMS Mode of arrival: EMS Limitations: no limitations History of Present Illness: HPI Narrative: Patient is a 72-year-old female with history of COPD/asthma, chronic respiratory failure-oxygen dependent, anxiety/panic disorder presents to the emergency department with complaints of shortness of breath. This makes patient's 6th ED visit just this month. She was seen 03/27, 03/29, 03/30, twice on 03/31, and then today's visit. Her complaint is identical every visit. With all of her ED work ups recently there have been no significant findings. She has no new complaints today. She appears in NAD and satting normally on her 6L which she has purposely been increasing herself to even though she sats the same at 3L. In the past she has declined senior care placement because she has a dog at home. Apparently her home health staff member said she will take the dog so [facility] states she is agreeable to senior care placement today. She has been placed previously but apparently left the day she got there. MD elicited complaint: shortness of breath Pertinent past history: COPD and asthma Onset (ago): month(s) Timing: constant Severity: moderate Relieving factors: nothing Known history of: COPD and asthma Associated symptoms: Deny abdominal pain, chest congestion, chest pain, dizziness, extremity pain, fever(s), hemoptysis, lightheadedness, nausea, palpitations, syncope or vomiting Treatment prior to arrival: oxygen Related Data: Home oxygen amount: 3 liters Review of Systems Const: Denies: fever(s), chills, body aches, fatigue or malaise Card: Reports: dyspnea on exertion (chronic-at baseline); Denies: chest pain, palpitations, irregular heart rhythm, edema, swelling of feet/ankles, lightheadedness, syncope or pre-syncope Resp: Reports: dyspnea (chronic-at baseline); Denies: productive cough, non-productive cough, wheezing, pain on inspiration, hemoptysis or chest congestion GI: Denies: abdominal pain, nausea, vomiting or diarrhea : Denies: flank pain, difficulty voiding, dysuria, urinary frequency, urinary urgency or urinary hesitancy Musc: Denies: neck pain, back pain, extremity pain or joint pain Skin/Breast: Denies: rash Neuro: Denies: headache(s), numbness in extremities, weakness in extremities, sensory changes or dizziness PFSH ED PFSH: Medical History Supplemental oxygen dependent Anxiety 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 attack Goals of care, counseling/discussion Asthma-COPD overlap syndrome Fibromyalgia syndrome MDD (major depressive disorder) Delusional disorder Chronic respiratory failure with hypoxia Panic anxiety syndrome Surgical History History of appendectomy History of hysterectomy History of cholecystectomy Hx of tonsillectomy Family History Other No pertinent family history Social History Smoking and tobacco/nicotine status: former use of tobacco/nicotine Quit status (tobacco/nicotine): has quit using Year quit tobacco: 2015 - 1PPD x 40 Years Alcohol intake: never Substance/Drug Use: never Lives independently: Yes Household members: none Current occupational status: disabled Pets and animals: Yes Pets & animals: dog(s) Do you think of yourself as: Straight/Heterosexual Current gender identity: Female Physical Exam Const: COMMON NORMALS: no acute distress, average body habitus, patient oriented x3, no limitations and alert GENERAL APPEARANCE: cooperative ORIENTATION/CONSCIOUSNESS: Yes awake, Yes oriented to person, Yes oriented to place and Yes oriented to time HENMT: COMMON NORMALS: normocephalic and atraumatic HEAD & SCALP: normal to inspection, normocephalic and atraumatic FACE & SINUS: normal facial exam Neck/C-Spine: COMMON NORMALS: no lymphadenopathy, no meningeal signs and no JVD Chest: COMMONS NORMALS: normal inspection of the chest and normal palpation of entire chest wall Resp: COMMON NORMALS: normal respiratory effort and clear to auscultation bilaterally AUSCULTATION: clear to auscultation bilaterally OTHER: satting 97% on 3L currently; in NAD Cardio: COMMON NORMALS: no JVD, regular rate and regular rhythm RATE: regular rate RHYTHM: regular rhythm Extremity: COMMON NORMALS: no clubbing, cyanosis or edema, no calf tenderness and no pedal edema GENERAL: Yes normal exam except as noted Neuro: ARLIN COMA SCALE: document GCS findings Arlin coma scale eye opening: Spontaneous [place] coma scale verbal response: Orientated [place] coma scale motor response: Obey commands [place] coma scale total score: 15 COMMON NORMALS: patient oriented x3, moves all extremities, no focal motor deficits and no sensory deficits noted SENSORIUM/ORIENTATION: Yes alert, Yes oriented to person, Yes oriented to place and Yes oriented to time MENINGEAL SIGNS: Yes no meningeal signs Skin: COMMON NORMALS: no rashes or lesions noted GENERAL SKIN EXAM: no rashes or lesions noted Course Vital Signs: Vital signs: Vital Signs Temperature 97.5 F L 04/02/23 12:38 Pulse Rate 97 04/02/23 12:38 Blood Pressure 140/82 04/02/23 12:38 Pulse Oximetry 97 04/02/23 12:38 Oxygen Delivery Me thod Nasal Cannula 04/02/23 12:38 Oxygen Flow Rate 6 04/02/23 12:38 MDM - SOB/Dyspnea Medical Decision Making Patient is 72-year-old female who is extremely well-known to our emergency department. Today's visit will make her sixth visit over the past week. She is here for complaints of shortness of breath. She has no new increased oxygen requirement. Her blood work over the past 6 visits have been unremarkable. She has no new complaints today. There is no further workup indicated from an ED standpoint at this time. In the past she has denied senior care placement due to her having a dog at home. Apparently her home health staff has mentioned that they will take the animal thus she is agreeable to senior care placement today. Case management was able to get her accepted to [facility]. Medical Records I reviewed the patient's medical records. Lab Data I reviewed the patient's lab results. No radiology studies performed this visit Discharge Plan Discharge Patient Disposition: Home Clinical Impression: Chronic respiratory failure with hypoxia Condition: Stable Prescriptions: No Action (DME) Hospital bed, that folds See Rx Instructions .Route .MEDSUPPLY Qty: 1 0RF Rx Instructions: As directed prednisone 5 mg tablet 5 mg PO EVERY OTHER DAY Qty: 30 3RF pantoprazole 40 mg tablet,delayed release (DR/EC) 40 mg PO DAILY 30 Days Qty: 30 3RF metoprolol tartrate 25 mg tablet 12.5 mg PO BID 30 Days Qty: 30 5RF albuterol sulfate 90 mcg/actuation HFA aerosol inhaler 2 inh INHALATION Q4H PRN (Reason: shortness of breath or wheezing) Qty: 18 5RF fluoxetine 40 mg capsule 40 mg PO DAILY 30 Days Qty: 30 3RF fluticasone propion-salmeterol [Advair Diskus] 500-50 mcg/dose blister with device 1 inh inhalation BID Qty: 60 0RF ipratropium-albuterol 0.5 mg-3 mg(2.5 mg base)/3 mL solution for nebulization 3 ml inhalation Q4H PRN (Reason: shortness of breath or wheezing) Qty: 90 0RF levothyroxine 125 mcg tablet 125 mcg PO DAILY clonazepam 0.5 mg tablet 0.5 mg PO BID PRN (Reason: anxiety) 30 Days Qty: 8 2RF Discharge Orders: Discharge ED (Routine); Ordered 04/02/23 Ordered By: Sherlyn Mason Referrals: Benjamin Gonzalez MD [Primary Care Provider] - Coding Level of Care Code ED Assistant Printer Floor Covering for Ji Melgar
[2023-04-02 13:30] VITALS: BP 137/73; O2SAT 98
--- NOTE | 2023-04-02 13:39 | PC.SOCIAL ---
Placement at [facility] Spoke with patient and she is wanting to go to SNF. [facility] accepted her in February, patient is still agreeable to go there if they are able to accept. Referral and signed [id number] from February faxed to [facility]. Spoke with Brandi who states that they can likely accept. She states that if patient is going to apply for medicaid, she would not owe anything until April 19. Patient reports that she draws a SS check, and asks if they will take this. Brandi reports that patient can either right them a check or they can assist her in rerouting her check minus the $50 allowance whichever patient prefers. Vera reports that they have reviewed and can set up patient a ride. Jennifer requests 15min for patient to be ready. Called [facility] and spoke with Kevin, they will send someone to pick patient up.
[2023-04-02 14:17] VITALS: BP 137/84; PULSE 88; RESP 22; O2SAT 94
--- NOTE | 2023-04-02 14:32 | PC.NURSE ---
Report called to [facility]
== END 2023-04-02 14:18 | disposition home or self-care (01) ==
PROVIDERS: Emergency Provider Physician Assistant; PCP Family Medicine Adult Medicine
DX: J96.11 Chronic respiratory failure with hypoxia (principal); Z87.891 Personal history of nicotine dependence; Z99.81 Dependence on supplemental oxygen; J44.89 Other specified chronic obstructive pulmonary disease
CPT/HCPCS: 99281

== ENCOUNTER 2023-04-11 05:47 | Emergency (ER) | payer MEDICARE, SELFPAY ==
[2023-04-11 05:51] VITALS: BP 163/113; PULSE 120; RESP 20; TEMP 36.3; O2SAT 97
--- NOTE | 2023-04-11 06:22 | XRR_ITS ---
PROCEDURE INFORMATION: Exam: XR Chest Exam date and time: 04/11/2023 6:27 AM Age: 72 years old Clinical indication: Screening exam; Other screening; Additional info: Screec TECHNIQUE: Imaging protocol: Radiologic exam of the chest. Views: 1 view. COMPARISON: CR (CHEST, ) 03/31/2023 6:07 PM FINDINGS: Lungs: Unremarkable. No consolidation. Pleural spaces: Unremarkable. No pleural effusion. No pneumothorax. Heart/Mediastinum: Unremarkable. No cardiomegaly. Bones/joints: Unremarkable. XR/XR chest 1V portable [id number] IMPRESSION: No acute findings.
--- NOTE | 2023-04-11 06:40 | ED.C_ITS ---
HPI - Psych 2 General: Chief Complaint: Psychiatric Symptoms Stated Complaint: behavioral issues Time Seen by Provider: 04/11/23 05:55 Source: patient Mode of arrival: ambulatory History of Present Illness: 72-year-old female [facility] after having an anger outburst she broke a bedside commode and then used a piece of the broken commode to cut her right wrist. Patient was recently [facility] to the prison she has had multiple visits to the ER over the last few months. She usually is upset she also complains of difficulty breathing but have a normal exam when she arrives here most recent exam in April 02 she was able to be convinced to go to the prison previously she had always declined whenever offered even when she had been admitted to inpatient services. Her visitation to the prison previously had been she had a dog at home to care for him. Today she is not able to tell me why she got angry she does say she wanted to harm herself. Her only complaint is head and neck pain which is chronic and unchanged at baseline. If self harm: admits thoughts of self harm, has plan and has acted on plan Review of Systems 2 Const: Denies: fever(s) or chills Card: Denies: chest pain Resp: Denies: dyspnea GI: Denies: abdominal pain : Denies: dysuria, urinary frequency or urinary urgency Musc: Denies: neck pain or back pain Skin/Breast: Denies: rash PFSH ED 2 PFSH: Medical History Supplemental oxygen dependent Anxiety 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 attack Goals of care, counseling/discussion Asthma-COPD overlap syndrome Fibromyalgia syndrome MDD (major depressive disorder) Delusional disorder Chronic respiratory failure with hypoxia Panic anxiety syndrome Surgical History History of appendectomy History of hysterectomy History of cholecystectomy Hx of tonsillectomy Family History Other No pertinent family history Social History Smoking and tobacco/nicotine status: former use of tobacco/nicotine Quit status (tobacco/nicotine): has quit using Year quit tobacco: 2015 - 1PPD x 40 Years Alcohol intake: never Substance/Drug Use: never Lives independently: Yes Household members: none Current occupational status: disabled Pets and animals: Yes Pets & animals: dog(s) Do you think of yourself as: Straight/Heterosexual Current gender identity: Female Physical Exam 2 Const: GENERAL APPEARANCE: cooperative and comfortable O RIENTATION/CONSCIOUSNESS: Yes awake, Yes oriented to person, Yes oriented to place and Yes oriented to time HENMT: COMMON NORMALS: normocephalic, atraumatic and hearing grossly normal bilaterally HEAD & SCALP: normocephalic and atraumatic EXTERNAL AUDITORY CANAL: EAC(s) not abnormal Resp: COMMON NORMALS: normal respiratory effort, No retractions and No use of accessory muscles EFFORT & INSPECTION: No respiratory distress and Yes uses accessory muscles (Chronic at patient's baseline) AUSCULTATION: wheezes Cardio: COMMON NORMALS: regular rate, regular rhythm and No murmurs present (Cardio) RATE: regular rate RHYTHM: regular rhythm GI: COMMON NORMALS: Soft to palpation and No hepatosplenomegaly present A USCULTATION: Yes normoactive bowel sounds PALPATION: Yes Soft to palpation, No Tenderness to palpation present (GI), No Guarding due to palpation present (GI) and Yes No hepatosplenomegaly present Extremity: COMMON NORMALS: normal to inspection, capillary refill normal, no clubbing, cyanosis or edema, no calf tenderness and no pedal edema Neuro: SENSORIUM/ORIENTATION: Yes oriented to person, Yes oriented to place and Yes oriented to time Skin: COMMON NORMALS: no rashes or lesions noted GENERAL SKIN EXAM: no rashes or lesions noted Course 2 Vital Signs: Vital signs: Vital Signs Temperature 97.3 F L 04/11/23 05:51 Pulse Rate 93 04/11/23 12:39 Respiratory Rate 20 H 04/11/23 12:39 Blood Pressure 145/89 04/11/23 17:23 Pulse Oximetry 93 04/11/23 12:39 Oxygen Delivery Me thod Nasal Cannula 04/11/23 12:39 Oxygen Flow Rate 6 04/11/23 12:39 [facility] - Psych Medical Decision Making Patient has made suicidal threats in the past. She is escalated a bit with the behavior today she is also known explosive outburst in the past. Will transfer her to geriatric psychiatry discussed with Sammy Regalado will be receiving. Her blood pressure was elevated she is given medications here which improved her blood pressure previously she was on metoprolol but that had been stopped uncertain of why she may need an YANELI inhibitor or low-dose beta-david in the future suspect it was probably stopped due to her severe COPD. Patient is convinced usually that she needs to have her nasal cannula in her mouth and needs to be at 6 L/min however we have successfully titrated to maintain good oxygen level at 2 L/min Differential Diagnosis Likely suicidal ideation Medical Records I reviewed the patient's medical records. Lab Data I reviewed the patient's lab results. 04/11/23 06:54 04/11/23 06:54 Radiology Impressions Chest X-Ray 04/11/23 06:22 IMPRESSION: No acute findings. Laboratory Results WBC 14.78 10^3/uL (3.29-11.43) H 04/11/23 06:54 RBC 4.75 10^6/uL (3.85-5.65) 04/11/23 06:54 Hgb 15.00 g/dL (11.27-16.99) 04/11/23 06:54 Hct 46.7 % (36-47) 04/11/23 06:54 MCV 98.3 fl (85-98) H 04/11/23 06:54 MCH 31.6 pg (27-33) 04/11/23 06:54 MCHC 32.1 g/dL (30-55) 04/11/23 06:54 RDW 13.2 % (12.1-15.1) 04/11/23 06:54 Plt Count 326 10^3/cmm (157-399) 04/11/23 06:54 MPV 10.0 fL (7.4-10.4) 04/11/23 06:54 Neut % (Auto) 88.4 % 04/11/23 06:54 Lymph % (Auto) 4.6 % 04/11/23 06:54 [place] % (Auto) 4.9 % 04/11/23 06:54 Eos % (Auto) 1.2 % 04/11/23 06:54 Baso % (Auto) 0.5 % 04/11/23 06:54 Neut # (Auto) 13.06 10^3/uL (1.8-7.7) H 04/11/23 06:54 Lymph # (Auto) 0.7 10^3/uL (0.8-4.8) L 04/11/23 06:54 [place] # (Auto) 0.7 10^3/uL (0.2-0.9) 04/11/23 06:54 Eos # (Auto) 0.2 10^3/uL (0.0-0.8) 04/11/23 06:54 Baso # (Auto) 0.1 10^3/uL (0.0-0.1) 04/11/23 06:54 Nucleated RBC % (auto) 0 % 04/11/23 06:54 Nucleated RBCs # 0.0 /100WBC 04/11/23 06:54 Sodium 139 mmol/L (136-145) 04/11/23 06:54 Potassium 4.5 mmol/L (3.5-5.1) 04/11/23 06:54 Chloride 98 mmol/L (98-107) 04/11/23 06:54 Carbon Dioxide 30 mmol/L (22-29) H 04/11/23 06:54 Anion Gap 15.5 (5-19) 04/11/23 06:54 BUN 27 mg/dL (8-23) H 04/11/23 06:54 Creatinine 0.5 mg/dL (0.5-0.9) 04/11/23 06:54 GFR Calculation Not Reportable 04/11/23 06:54 Glucose 112 mg/dL (65-115) 04/11/23 06:54 Calculated Osmolality 294 mOsm/kg (285-295) 04/11/23 06:54 Calcium 9.7 mg/dL (8.5-10.5) 04/11/23 06:54 Total Bilirubin 0.8 mg/dL (0.15-1.2) 04/11/23 06:54 AST 26 U/L (0-32) 04/11/23 06:54 ALT 17 U/L (0-33) 04/11/23 06:54 Alkaline Phosphatase 93 U/L (35-105) 04/11/23 06:54 Total Protein 7.4 g/dL (6.6-8.7) 04/11/23 06:54 Albumin 4.1 g/dL (3.5-5.2) 04/11/23 06:54 Globulin 3.3 g/dL (1.3-4.6) 04/11/23 06:54 TSH 6.62 uIU/mL (0.27-4.20) H 04/11/23 06:54 Urine Color Yellow (Yellow) 04/11/23 10:35 Urine Appearance Clear (CLEAR) 04/11/23 10:35 Urine pH 5 (5-7) 04/11/23 10:35 Ur Specific [place] 1.030 (1.005-1.030) 04/11/23 10:35 Urine Protein Neg (Negative) 04/11/23 10:35 Urine Glucose (UA) Norm (Normal) 04/11/23 10:35 Urine Ketones 2+ (Negative) H 04/11/23 10:35 Urine Blood Neg (Negative) 04/11/23 10:35 Urine Nitrate Negative (Negative) 04/11/23 10:35 Urine Bilirubin Neg (Negative) 04/11/23 10:35 Urine Urobilinogen Norm mg/dL (Negative) 04/11/23 10:35 Ur Leukocyte Esterase Trace (Negative) H 04/11/23 10:35 Urine RBC 0-4 /hpf (0-2) H 04/11/23 10:35 Urine WBC 10-15 /hpf (0-5) H 04/11/23 10:35 Ur Squamous Epith Cells 0-4 /hpf (0-5) H 04/11/23 10:35 Amorphous Sediment Not Reportable 04/11/23 10:35 Urine Bacteria Trace /hpf (NONE) 04/11/23 10:35 Hyaline Casts 5-10 /lpf H 04/11/23 10:35 Urine Mucus 3+ /hpf 04/11/23 10:35 Salicylates < 0.3 mg/dL (3-10) L 04/11/23 06:54 Urine Opiates Screen Negative ng/mL (Negative) 04/11/23 10:35 Acetaminophen < 5.0 ug/mL (10-30) L 04/11/23 06:54 Ur Barbiturates Screen Negative ng/mL (Negative) 04/11/23 10:35 Ur Phencyclidine Scrn Negative ng/mL (Negative) 04/11/23 10:35 Ur Amphetamines Screen Negative ng/mL (Negative) 04/11/23 10:35 U Benzodiazepines Scrn Positive ng/mL (Negative) H 04/11/23 10:35 Urine Cocaine Screen Negative ng/mL (Negative) 04/11/23 10:35 U Marijuana (THC) Screen Negative ng/mL (Negative) 04/11/23 10:35 Influenza Type A Ag negative (Negative) 04/11/23 06:48 Influenza Type B Ag negative (Negative) 04/11/23 06:48 RSV Antigen Negative (Negative) 04/11/23 07:58 SARS-CoV-2 Ag (Rapid) negative (Negative) 04/11/23 06:48 All radiology interpretation(s) finalized by discharge Discharge Plan Discharge Patient Disposition: Xfer Psychiatric Hosp Clinical Impression: Suicidal ideation, Chronic respiratory failure with hypoxia, Supplemental oxygen dependent, End stage COPD Condition: Stable Referrals: Benjamin Gonzalez MD [Primary Care Provider] - Coding Level of Care Code ED Bindery Machine Tender for Ji Melgar
--- NOTE | 2023-04-11 07:04 | ECG_ITS ---
[facility] Test Date: 2023-04-11 Pat Name: Socorro Montes De Oca Department: Room: Gender: Female Content Checker: : 1950 Requested By: Alex Scales Order Number: [id number] Octavio MD: Giorgi Justin M.D. Measurements Intervals [place] Rate: 114 P: 89 OR: 127 QRS: 85 QRSD: 81 T: 86 QT: 324 QTc: 448 Interpretive Statements SINUS TACHYCARDIA WITH OCCASIONAL VENTRICULAR PREMATURE COMPLEXES RIGHT ATRIAL ENLARGEMENT [0.3mV P-WAVE] POSSIBLE RIGHT VENTRICULAR CONDUCTION DELAY [RSR (QR) IN V1/V2] Compared to ECG 03/31/2023 18:08:46 Ventricular premature complex(es) now present Atrial abnormality now present Electronically Signed On 04-11-2023 21:37:40 DOGMAN/WOMAN by Giorgi Justin M.D. [id number]
[2023-04-11 07:12] LABS: Basophils # 0.1 10^3/uL (0.0-0.1); Basophils % 0.5 %; Eosinophils # 0.2 10^3/uL (0.0-0.8); Eosinophils % 1.2 %; Hematocrit 46.7 % (36-47); Lymphocytes # 0.7 10^3/uL (0.8-4.8); Lymphocytes % 4.6 %; Mean Corpuscular HGB Conc 32.1 g/dL (30-55); Mean Corpuscular Hemoglobin 31.6 pg (27-33); Mean Corpuscular Volume 98.3 fl (85-98); Monocytes # 0.7 10^3/uL (0.2-0.9); Monocytes % 4.9 %; Neutrophils # 13.06 10^3/uL (1.8-7.7); Neutrophils % 88.4 %; Nucleated Red Blood Cells % 0 %; Platelet Count 326 10^3/cmm (157-399); Red Blood Count 4.75 10^6/uL (3.85-5.65); Red Cell Distribution Width 13.2 % (12.1-15.1); White Blood Count 14.78 10^3/uL (3.29-11.43)
--- NOTE | 2023-04-11 07:20 | PC.NURSE ---
SKILLED NURSING STAFF CALLED WANTING TO UPDATE ON PATIENT SITUATION. PER NURSE, PATIENT HAD EVERYTHING EXCEPT HER BED FLIPPED OVER THIS MORNING IN ROOM. SKILLED NURSING NURSE ALSO REPORTED THAT SHE HAD CUT HER WRIST FROM A PIECE OF HER BEDSIDE COMMODE. SKILLED NURSING STAFF STATED THAT THE PATIENT TRIED TO DENY THAT SHE MADE THE MESS IN THE ROOM. SKILLED NURSING STAFF STATED THAT SHE HAS BEEN THERE A TOTAL OF 8 DAYS AND HAS FLIPPED MULTIPLE CHAIRS AND BROKE MANY THINGS IN HER ROOM. SKILLED NURSING SENT PATIENT HERE IN HOPES OF AN OUTSIDE TRANSFER TO A PSYCHIATRIC FACILITY FOR FURTHER HELP.
--- NOTE | 2023-04-11 07:20 | PC.PHAR ---
pt is from [facility] [phone]-talked to ismael nurse from [facility] the pt is only taking the 3 medication entered xanax 0.5mg q4h prn ,tylenol 325mg take 650mg po q6h prn and an albuterol inhaler 2p q4h prn-ismael states all other medications were dced-
[2023-04-11 07:23] LABS: SARS Covid-2 Antigen negative (Negative)
[2023-04-11 07:24] LABS: Influenza A by IFA negative (Negative); Influenza B by IFA negative (Negative)
[2023-04-11 07:44] LABS: Alanine Aminotransferase 17 U/L (0-33); Albumin Level 4.1 g/dL (3.5-5.2); Alkaline Phosphatase 93 U/L (35-105); Anion Gap 15.5 (5-19); Aspartate Amino Transferase 26 U/L (0-32); Blood Urea Nitrogen 27 mg/dL (8-23); Calcium 9.7 mg/dL (8.5-10.5); Carbon Dioxide 30 mmol/L (22-29); Chloride 98 mmol/L (98-107); Globulin 3.3 g/dL (1.3-4.6); Glucose 112 mg/dL (65-115); Osmolality Calculated 294 mOsm/kg (285-295); Potassium 4.5 mmol/L (3.5-5.1); Sodium 139 mmol/L (136-145); Thyroid Stimulating Hormone 6.62 uIU/mL (0.27-4.20); Total Bilirubin 0.8 mg/dL (0.15-1.2); Total Protein 7.4 g/dL (6.6-8.7)
[2023-04-11 07:47] LABS: Acetaminophen < 5.0 ug/mL (10-30); Salicylate < 0.3 mg/dL (3-10)
[2023-04-11 08:35] LABS: RSV Transfer Patient (ED) Negative (Negative)
[2023-04-11 11:03] LABS: Amphetamines Screen Urine Negative (Negative); Barbiturates Screen Urine Negative (Negative); Benzodiazepines Screen Urine Positive (Negative); Cocaine Screen Urine Negative (Negative); Opiate Screen Urine Negative (Negative); PCP Screen Urine Negative (Negative); THC Screen Urine Negative (Negative)
[2023-04-11 11:22] LABS: Urine Appearance Clear (CLEAR); Urine Color Yellow (Yellow); pH Urine 5 (5-7)
[2023-04-11 11:23] LABS: Add Urine Microscopic? YES; Bilirubin Urine Neg (Negative); Blood Urine Neg (Negative); Glucose Urine UA Norm (Normal); Ketones Urine 2+ (Negative); Leukocyte Esterase Urine Trace (Negative); Nitrate Urine Negative (Negative); Protein Urine Neg (Negative); Urobilinogen Urine Norm (Negative)
[2023-04-11 11:27] LABS: Bacteria Urine TRACE /hpf; Mucus Urine 3+ /hpf; RBC Urine 0-4 /hpf (0-2); Squamous Epithelial Cell Urine 0-4 /hpf (0-5)
[2023-04-11 11:28] LABS: Add Urine Culture? No
[2023-04-11 12:39] VITALS: BP 171/104; PULSE 93; RESP 20; O2SAT 93
[2023-04-11] MEDS: LORazepam 2 mg Tablet PO (13:53)
[2023-04-11 14:54] VITALS: BP 170/100
[2023-04-11] MEDS: labetalol 5 mg/mL SDV 20mL 10 MG IVP (15:15)
[2023-04-11] MEDS: hyDRALAzine 20 mg/mL INJ 1 mL 10 MG IVP (15:15)
--- NOTE | 2023-04-11 16:10 | PC.NURSE ---
REPORT CALLED TO [facility].
[2023-04-11 17:23] VITALS: BP 145/89
== END 2023-04-11 17:51 ==
PROVIDERS: Emergency Provider Family Medicine; PCP Family Medicine Adult Medicine
DX: R45.851 Suicidal ideations (principal); J44.9 Chronic obstructive pulmonary disease, unspecified; J96.11 Chronic respiratory failure with hypoxia; Z99.81 Dependence on supplemental oxygen; Z11.52 Encounter for screening for COVID-19; Z87.891 Personal history of nicotine dependence
CPT/HCPCS: 36415; 71045; 80053; 80306; 80307; 81001; 84443; 85025; 87426; 87804; 87899; 93005; 96374; 96375; 99285; J0360; J3490

== ENCOUNTER 2023-05-01 13:46 | Emergency (ER) | payer MEDICARE, SELFPAY ==
--- NOTE | 2023-05-01 14:02 | XRR_ITS ---
PROCEDURE INFORMATION: Exam: XR Chest Exam date and time: 05/01/2023 2:12 PM Age: 72 years old Clinical indication: Pre-operative exam; Cardiovascular screening and respiratory screening exam; Additional info: Screen TECHNIQUE: Imaging protocol: Radiologic exam of the chest. Views: 1 view. COMPARISON: CR (CHEST, ) 04/11/2023 6:27 AM FINDINGS: Lungs: There are right lower lung zone airspace opacities, likely representing atelectasis. Pleural spaces: Unremarkable. No pleural effusion. No pneumothorax. Heart/Mediastinum: Unremarkable. No cardiomegaly. Bones/joints: There is moderate degenerative disease of the lower cervical spine. There is mild degenerative disease of the right acromioclavicular joint. There is a mild curvature of the lower thoracic spine convex to the right. XR/XR chest 1V portable [id number] IMPRESSION: Right lower lung zone opacities, likely representing atelectasis.
--- NOTE | 2023-05-01 14:03 | ECG_ITS ---
[facility] Test Date: 2023-05-01 Pat Name: Socorro Montes De Oca Department: Room: Gender: Female Teller: : 1950 Requested By: Alex Scales Order Number: [id number] Octavio MD: Jamaal Drummond M.D. Measurements Intervals [place] Rate: 73 P: 143 GA: 126 QRS: 104 QRSD: 78 T: 125 QT: 368 QTc: 408 Interpretive Statements SINUS RHYTHM ARM LEADS REVERSED [INVERTED P AND QRS IN I] Compared to ECG 04/11/2023 07:04:31 Sinus tachycardia no longer present Ventricular premature complex(es) no longer present Atrial abnormality no longer present Electronically Signed On 05-01-2023 16:29:41 BOTTOM TURNER by Jamaal Drummond M.D. [id number]
[2023-05-01 14:20] VITALS: BP 124/77; PULSE 70; O2SAT 99
[2023-05-01 14:20] LABS: Basophils # 0.1 10^3/uL (0.0-0.1); Basophils % 0.4 %; Eosinophils # 0.4 10^3/uL (0.0-0.8); Eosinophils % 3.1 %; Hematocrit 33.1 % (36-47); Lymphocytes # 1.6 10^3/uL (0.8-4.8); Lymphocytes % 13.2 %; Mean Corpuscular HGB Conc 32.6 g/dL (30-55); Mean Corpuscular Hemoglobin 31.5 pg (27-33); Mean Corpuscular Volume 96.5 fl (85-98); Mean Platelet Volume 9.9 fL (7.4-10.4); Monocytes % 8.3 %; Neutrophils # 8.31 10^3/uL (1.8-7.7); Nucleated Red Blood Cells % 0 %; Platelet Count 381 10^3/cmm (157-399); Red Blood Count 3.43 10^6/uL (3.85-5.65); Red Cell Distribution Width 14.1 % (12.1-15.1); White Blood Count 11.89 10^3/uL (3.29-11.43)
[2023-05-01 14:30] VITALS: BP 135/70; PULSE 79; O2SAT 98
[2023-05-01 14:37] LABS: Alanine Aminotransferase 16 U/L (0-33); Alkaline Phosphatase 86 U/L (35-105); Anion Gap 12.3 (5-19); Aspartate Amino Transferase 10 U/L (0-32); Blood Urea Nitrogen 18 mg/dL (8-23); Calcium 8.3 mg/dL (8.5-10.5); Carbon Dioxide 31 mmol/L (22-29); Chloride 102 mmol/L (98-107); Globulin 2.7 g/dL (1.3-4.6); Glucose 106 mg/dL (65-115); Osmolality Calculated 296 mOsm/kg (285-295); Potassium 3.3 mmol/L (3.5-5.1); Sodium 142 mmol/L (136-145); Total Bilirubin 0.3 mg/dL (0.15-1.2); Total Protein 5.7 g/dL (6.6-8.7)
[2023-05-01] MEDS: LORazepam 2 mg Tablet PO (14:44)
[2023-05-01 14:45] VITALS: PULSE 79; O2SAT 98
[2023-05-01 14:45] LABS: Salicylate < 0.3 mg/dL (3-10)
[2023-05-01 14:46] LABS: Acetaminophen < 5.0 ug/mL (10-30); Alcohol Level < 10 mg/dL (0-10)
[2023-05-01 15:00] VITALS: PULSE 67; O2SAT 99
[2023-05-01] MEDS: acetaminophen 325 mg Tablet 650 MG PO (15:07)
[2023-05-01 15:15] VITALS: PULSE 68; O2SAT 100
--- NOTE | 2023-05-01 15:31 | PC.PHAR ---
PT STS SHE HAS THE FOLLOWING MEDICATIONS AT HOME BUT DOES NOT TAKE THEM ALL HAVE CURRENT FILL AND PICKED UP DATES HYDRALAZINE 25 MG BID LAST FILLED 04/30/23 BID 30DS LEVOTHYROXINE 125 MCG DAILY 04/30/23 30DS METOPROLOL TARTRATE 25 MG DAILY 04/30/23 60DS
--- NOTE | 2023-05-01 16:09 | ED.C_ITS ---
HPI - Psych 2 General: Chief Complaint: Psychiatric Symptoms Stated Complaint: SI Time Seen by Provider: 05/01/23 13:56 History of Present Illness: 72-year-old female with a history of chuy quent ER visits for COPD oxygen dependent. She presents emergency room stating she is depressed but denies suicidal or homicidal ideation. He is very attached to a small dog was her only social contact for the most part evidently. She came in today via EMS she denies any fever sweats chills shortness of breath chest pain or abdominal pain. She states she is very depressed and anxious. When asked the second toe suicidal or homicidal ideation she became quite upset and denying it. Review of Systems 2 Const: Denies: fever(s) or chills Card: Denies: chest pain Resp: Denies: dyspnea GI: Denies: abdominal pain : Denies: dysuria, urinary frequency or urinary urgency Musc: Denies: neck pain or back pain Skin/Breast: Denies: rash PFSH ED 2 PFSH: Medical History Supplemental oxygen dependent Anxiety 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 attack Goals of care, counseling/discussion Asthma-COPD overlap syndrome Fibromyalgia syndrome MDD (major depressive disorder) Delusional disorder Chronic respiratory failure with hypoxia Panic anxiety syndrome Surgical History History of appendectomy History of hysterectomy History of cholecystectomy Hx of tonsillectomy Family History Other No pertinent family history Social History Smoking and tobacco/nicotine status: former use of tobacco/nicotine Quit status (tobacco/nicotine): has quit using Year quit tobacco: 2015 - 1PPD x 40 Years Alcohol intake: never Substance/Drug Use: never Lives independently: Yes Household members: none Current occupational status: disabled Pets and animals: Yes Pets & animals: dog(s) Do you think of yourself as: Straight/Heterosexual Current gender identity: Female Physical Exam 2 Const: COMMON NORMALS: no acute distress GENERAL APPEARANCE: cooperative and comfortable ORIENTATION/CONSCIOUSNESS: Yes awake, Yes oriented to person, Yes oriented to place and Yes oriented to time REECE: COMMON NORMALS: normocephalic, atraumatic and hearing grossly normal bilaterally HEAD & SCALP: normocephalic and atraumatic Cardio: COMMON NORMALS: No murmurs present (Cardio) Neuro: SENSORIUM/ORIENTATION: Yes oriented to person, Yes oriented to place and Yes oriented to time Skin: COMMON NORMALS: no rashes or lesions noted GENERAL SKIN EXAM: no rashes or lesions noted Course 2 Vital Signs: Vital signs: Vital Signs Pulse Rate 68 05/01/23 15:15 Blood Pressure 135/70 05/01/23 14:30 Pulse Oximetry 100 05/01/23 15:15 Oxygen Delivery Me thod Nasal Cannula 05/01/23 14:20 Oxygen Flow Rate 4 05/01/23 14:20 MDM - Psych Medical Decision Making Patient states she is depressed because she lost her dog.. She is very attached her dog and actually had declined going to senior living multiple times because of her dog. She states the last few weeks she has not been able to find her dog she sought out assistance for it because that she is very depressed he denies any suicidal homicidal ideation. Then later when she said she wanted to be admitted and we did not have any reason to admit she had will then I am suicidal. Discussed with her that she had early adamantly denied being suicidal. She acknowledged that she had changed her mind stating she just simply wants to be admitted. At this point she is stable vital signs are normal and there is no acute lab abnormalities she has no other physical symptoms recommend that she follow-up with [facility]. Differential Diagnosis Likely depression Medical Records I reviewed the patient's medical records. Lab Data I reviewed the patient's lab results. 05/01/23 14:10 05/01/23 14:10 Radiology Impressions Chest X-Ray 05/01/23 14:02 IMPRESSION: Right lower lung zone opacities, likely representing atelectasis. Laboratory Results WBC 11.89 10^3/uL (3.29-11.43) H 05/01/23 14:10 RBC 3.43 10^6/uL (3.85-5.65) L 05/01/23 14:10 Hgb 10.80 g/dL (11.27-16.99) L 05/01/23 14:10 Hct 33.1 % (36-47) L 05/01/23 14:10 MCV 96.5 fl (85-98) 05/01/23 14:10 MCH 31.5 pg (27-33) 05/01/23 14:10 MCHC 32.6 g/dL (30-55) 05/01/23 14:10 RDW 14.1 % (12.1-15.1) 05/01/23 14:10 Plt Count 381 10^3/cmm (157-399) 05/01/23 14:10 MPV 9.9 fL (7.4-10.4) 05/01/23 14:10 Neut % (Auto) 70.0 % 05/01/23 14:10 Lymph % (Auto) 13.2 % 05/01/23 14:10 [place] % (Auto) 8.3 % 05/01/23 14:10 Eos % (Auto) 3.1 % 05/01/23 14:10 Baso % (Auto) 0.4 % 05/01/23 14:10 Neut # (Auto) 8.31 10^3/uL (1.8-7.7) H 05/01/23 14:10 Lymph # (Auto) 1.6 10^3/uL (0.8-4.8) 05/01/23 14:10 [place] # (Auto) 1.0 10^3/uL (0.2-0.9) H 05/01/23 14:10 Eos # (Auto) 0.4 10^3/uL (0.0-0.8) 05/01/23 14:10 Baso # (Auto) 0.1 10^3/uL (0.0-0.1) 05/01/23 14:10 Nucleated RBC % (auto) 0 % 05/01/23 14:10 Nucleated RBCs # 0.0 /100WBC 05/01/23 14:10 Sodium 142 mmol/L (136-145) 05/01/23 14:10 Potassium 3.3 mmol/L (3.5-5.1) L 05/01/23 14:10 Chloride 102 mmol/L (98-107) 05/01/23 14:10 Carbon Dioxide 31 mmol/L (22-29) H 05/01/23 14:10 Anion Gap 12.3 (5-19) 05/01/23 14:10 BUN 18 mg/dL (8-23) 05/01/23 14:10 Creatinine 0.5 mg/dL (0.5-0.9) 05/01/23 14:10 GFR Calculation Not Reportable 05/01/23 14:10 Glucose 106 mg/dL (65-115) 05/01/23 14:10 Calculated Osmolality 296 mOsm/kg (285-295) H 05/01/23 14:10 Calcium 8.3 mg/dL (8.5-10.5) L 05/01/23 14:10 Total Bilirubin 0.3 mg/dL (0.15-1.2) 05/01/23 14:10 AST 10 U/L (0-32) 05/01/23 14:10 ALT 16 U/L (0-33) 05/01/23 14:10 Alkaline Phosphatase 86 U/L (35-105) 05/01/23 14:10 Total Protein 5.7 g/dL (6.6-8.7) L 05/01/23 14:10 Albumin 3.0 g/dL (3.5-5.2) L 05/01/23 14:10 Globulin 2.7 g/dL (1.3-4.6) 05/01/23 14:10 Salicylates < 0.3 mg/dL (3-10) L 05/01/23 14:10 Acetaminophen < 5.0 ug/mL (10-30) L 05/01/23 14:10 Ethyl Alcohol < 10 mg/dL (0-10) 05/01/23 14:10 All radiology interpretation(s) finalized by discharge Discharge Plan Discharge Patient Disposition: Home Clinical Impression: Depression Condition: Stable Prescriptions: No Action (DME) Hospital bed, that folds See Rx Instructions .Route .MEDSUPPLY Qty: 1 0RF Rx Instructions: As directed albuterol sulfate 90 mcg/actuation HFA aerosol inhaler 2 inh INHALATION Q4H PRN (Reason: shortness of breath or wheezing) Qty: 18 5RF acetaminophen [Tylenol] 325 mg Tablet 650 mg PO Q6H PRN (Reason: Pain) hydralazine 25 mg tablet 25 mg PO BID levothyroxine 125 mcg tablet 125 mcg PO DAILY metoprolol tartrate 25 mg tablet 25 mg PO DAILY Discharge Orders: Discharge ED (Routine); Ordered 05/01/23 Ordered By: Alex Romero Referrals: Benjamin Gonzalez MD [Primary Care Provider] - Discharge Diet: Usual diet Discharge Activity: Resume usual activity Patient Instructions: Opioid Safety, Pain Management Activity Restrictions/Additional Instructions: Thank you for choosing [facility] for your healthcare needs today. Please realize this is an emergency room and that we are providing you with a medical screening exam and this may not be complete and all inclusive of all the testing and or work up that you may need to determine your ailment or severity of your illness. It is very important that you follow up as instructed or that you return to the Emergency Department should you have concerns or if your condition changes or worsens in any way. child welfare manager will make arrangements for you to follow-up with behavioral health clinic if you so desire. Coding Level of Care Code ED Crop Adjuster for Ji Melgar
--- NOTE | 2023-05-02 09:18 | DCPLANNER ---
Message sent to [facility] for Further services for Depression.
== END 2023-05-01 16:16 | disposition home or self-care (01) ==
PROVIDERS: Emergency Provider Family Medicine; PCP Family Medicine Adult Medicine
DX: F32.A Depression, unspecified (principal); J44.9 Chronic obstructive pulmonary disease, unspecified; Z99.81 Dependence on supplemental oxygen; Z87.891 Personal history of nicotine dependence
CPT/HCPCS: 36415; 71045; 80053; 80307; 85025; 93005; 99285

== ENCOUNTER 2023-05-02 11:03 | Emergency (ER) | payer MEDICARE, SELFPAY ==
[2023-05-02 11:12] VITALS: PULSE 85; RESP 15; TEMP 36.6; O2SAT 97
--- NOTE | 2023-05-02 12:46 | XRR_ITS ---
PROCEDURE INFORMATION: Exam: XR Chest Exam date and time: 05/02/2023 12:49 PM Age: 72 years old Clinical indication: Cough and dyspnea; Additional info: Dyspnea/cough TECHNIQUE: Imaging protocol: Radiologic exam of the chest. Views: 1 view. COMPARISON: CR XR chest 1V portable [id number] 05/01/2023 2:12 PM FINDINGS: Lungs: Mild bibasilar subsegmental atelectasis versus scarring. No consolidation. Pleural spaces: Unremarkable. No pleural effusion. No pneumothorax. Heart/Mediastinum: Unremarkable. No cardiomegaly. Vasculature: Aortic arch atherosclerotic calcification. Bones/joints: Mild degenerative changes along the spine and acromioclavicular joints. Intraperitoneal space: Right upper abdomen surgical clips. XR/XR chest 1V portable [id number] IMPRESSION: No acute findings.
--- NOTE | 2023-05-02 12:54 | ECG_ITS ---
[facility] Test Date: 2023-05-02 Pat Name: Socorro Montes De Oca Department: Room: Gender: Female Manager Of Development: : 1950 Requested By: Alex Scales Order Number: [id number] Octavio MD: Jamaal Drummond M.D. Measurements Intervals [place] Rate: 74 P: 84 [place]: 132 QRS: 57 QRSD: 78 T: 78 QT: 376 QTc: 418 Interpretive Statements SINUS RHYTHM WITH OCCASIONAL SUPRAVENTRICULAR PREMATURE COMPLEXES Compared to ECG 05/01/2023 14:16:29 No significant changes Electronically Signed On 05-02-2023 15:45:30 EXTRA HAND by Jamaal Drummond M.D. [id number]
--- NOTE | 2023-05-02 13:07 | ED_ITS ---
HPI - Weakness 2 General: Chief complaint: Weakness Stated complaint: Gen Weakness Time Seen by Provider: 05/02/23 12:40 Source: patient Mode of arrival: EMS History of Present Illness: 72-year-old female presents emergency ro om via EMS she states she is weak again her leg do anything for self at home. She tells us that she has been accepted at [facility]. She was here yesterday stated she was depressed because her dog had and was demanded to be admitted. She changed her chief complaint when we had talked about discharging here stating that she would kill herself if we did not admit her. Previously made similar complaints she has had hospitalizations for mental health she has been admitted to the group home several times and usually discharges herself. She denies any specific complaint at this time she is agitated and very aggressive and is demanding to be admitted to a group home. MD Complaint: generalized weakness Onset (ago): month(s) Duration: constant Location: generalized Associated symptoms: Denies chest pain, chills, confusion, melena, decreased appetite, diaphoresis, dysuria, easy bruising, fever(s), headache(s), myalgias, nausea, rash, short of breath, syncope or vomiting Review of Systems 2 Const: Denies: fever(s), chills or diaphoresis Card: Denies: chest pain or syncope Resp: Denies: dyspnea GI: Denies: nausea, vomiting or melena : Denies: dysuria Musc: Denies: neck pain or back pain Skin/Breast: Denies: rash Neuro: Denies: headache(s) or confusion Arnav/Lymph: Denies: easy bruising PFSH ED 2 PFSH: Medical History Supplemental oxygen dependent Anxiety 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 attack Goals of care, counseling/discussion Asthma-COPD overlap syndrome Fibromyalgia syndrome MDD (major depressive disorder) Delusional disorder Chronic respiratory failure with hypoxia Panic anxiety syndrome Surgical History History of appendectomy History of hysterectomy History of cholecystectomy Hx of tonsillectomy Family History Other No pertinent family history Social History Smoking and tobacco/nicotine status: former use of tobacco/nicotine Quit status (tobacco/nicotine): has quit using Year quit tobacco: 2015 - 1PPD x 40 Years Alcohol intake: never Substance/Drug Use: never Lives independently: Yes Household members: none Current occupational status: disabled Pets and animals: Yes Pets & animals: dog(s) Do you think of yourself as: Straight/Heterosexual Current gender identity: Female Physical Exam 2 Const: COMMON NORMALS: no acute distress GENERAL APPEARANCE: cooperative and comfortable ORIENTATION/CONSCIOUSNESS: Yes awake, Yes oriented to person, Yes oriented to place and Yes oriented to time HENMT: COMMON NORMALS: normocephalic, atraumatic and hearing grossly normal bilaterally HEAD & SCALP: normocephalic and atraumatic Resp: COMMON NORMALS: normal respiratory effort, No retractions, No use of accessory muscles and clear to auscultation bilaterally AUSCULTATION: clear to auscultation bilaterally Cardio: COMMON NORMALS: regular rate, regular rhythm and No murmurs present (Cardio) RATE: regular rate RHYTHM: regular rhythm GI: COMMON NORMALS: Soft to palpation and No hepatosplenomegaly present A USCULTATION: Yes normoactive bowel sounds PALPATION: Yes Soft to palpation, No Tenderness to palpation present (GI), No Guarding due to palpation present (GI) and Yes No hepatosplenomegaly present Extremity: COMMON NORMALS: normal to inspection, capillary refill normal, no clubbing, cyanosis or edema, no calf tenderness and no pedal edema Neuro: SENSORIUM/ORIENTATION: Yes oriented to person, Yes oriented to place and Yes oriented to time Skin: COMMON NORMALS: no rashes or lesions noted GENERAL SKIN EXAM: no rashes or lesions noted Course 2 Vital Signs: Vital signs: Vital Signs Temperature 97.9 F 05/02/23 11:12 Pulse Rate 88 05/02/23 14:36 Respiratory Rate 18 05/02/23 14:36 Blood Pressure 181/65 05/02/23 14:36 Pulse Oximetry 97 05/02/23 14:36 Oxygen Delivery Me thod Nasal Cannula 05/02/23 14:36 Oxygen Flow Rate 3 05/02/23 14:03 MDM - Weakness Medical Decision Making No acute injury patient is not acutely suicidal or homicidal. She simply wants to go to the group home. Previously she been hesitant because she wanted to stay home with her dog. Yesterday she told me her dog had been lost today she tells me that she had given her dog to a nurse would participate in her care at some point. She does not have a dog at home now and she said she would prefer to go to the group home. She is otherwise stable. No acute injury no acute respiratory distress no chest pain. We did have case management review patient declined the [facility] except her today were not aware of this and did not accept her case management is reviewing other facilities that she might be able to go to but none will take her today we will discharge her home encouraged her to establish with a primary care doctor to arrange for group home placement Medical Records I reviewed the patient's medical records. Lab Data I reviewed the patient's lab results. 05/02/23 13:09 05/02/23 13:09 Radiology Impressions Chest X-Ray 05/02/23 12:46 IMPRESSION: No acute findings. Laboratory Results WBC 13.19 10^3/uL (3.29-11.43) H 05/02/23 13:09 RBC 4.03 10^6/uL (3.85-5.65) 05/02/23 13:09 Hgb 12.70 g/dL (11.27-16.99) 05/02/23 13:09 Hct 38.9 % (36-47) 05/02/23 13:09 MCV 96.5 fl (85-98) 05/02/23 13:09 MCH 31.5 pg (27-33) 05/02/23 13:09 MCHC 32.6 g/dL (30-55) 05/02/23 13:09 RDW 14.1 % (12.1-15.1) 05/02/23 13:09 Plt Count 457 10^3/cmm (157-399) H 05/02/23 13:09 MPV 9.7 fL (7.4-10.4) 05/02/23 13:09 Neut % (Auto) 71.2 % 05/02/23 13:09 Lymph % (Auto) 10.9 % 05/02/23 13:09 [place] % (Auto) 8.6 % 05/02/23 13:09 Eos % (Auto) 4.4 % 05/02/23 13:09 Baso % (Auto) 0.4 % 05/02/23 13:09 Neut # (Auto) 9.39 10^3/uL (1.8-7.7) H 05/02/23 13:09 Lymph # (Auto) 1.4 10^3/uL (0.8-4.8) 05/02/23 13:09 [place] # (Auto) 1.1 10^3/uL (0.2-0.9) H 05/02/23 13:09 Eos # (Auto) 0.6 10^3/uL (0.0-0.8) 05/02/23 13:09 Baso # (Auto) 0.1 10^3/uL (0.0-0.1) 05/02/23 13:09 Nucleated RBC % (auto) 0 % 05/02/23 13:09 Nucleated RBCs # 0.0 /100WBC 05/02/23 13:09 Sodium 141 mmol/L (136-145) 05/02/23 13:09 Potassium 3.3 mmol/L (3.5-5.1) L 05/02/23 13:09 Chloride 99 mmol/L (98-107) 05/02/23 13:09 Carbon Dioxide 34 mmol/L (22-29) H 05/02/23 13:09 Anion Gap 11.3 (5-19) 05/02/23 13:09 BUN 10 mg/dL (8-23) 05/02/23 13:09 Creatinine 0.4 mg/dL (0.5-0.9) L 05/02/23 13:09 GFR Calculation Not Reportable 05/02/23 13:09 Glucose 99 mg/dL (65-115) 05/02/23 13:09 Calculated Osmolality 291 mOsm/kg (285-295) 05/02/23 13:09 Calcium 8.6 mg/dL (8.5-10.5) 05/02/23 13:09 Magnesium 2.0 mg/dL (1.7-2.3) 05/02/23 13:09 Total Bilirubin 0.4 mg/dL (0.15-1.2) 05/02/23 13:09 AST 15 U/L (0-32) 05/02/23 13:09 ALT 16 U/L (0-33) 05/02/23 13:09 Alkaline Phosphatase 99 U/L (35-105) 05/02/23 13:09 Total Protein 6.2 g/dL (6.6-8.7) L 05/02/23 13:09 Albumin 3.4 g/dL (3.5-5.2) L 05/02/23 13:09 Globulin 2.8 g/dL (1.3-4.6) 05/02/23 13:09 Urine Color Light yellow (Yellow) 05/02/23 13:57 Urine Appearance Clear (CLEAR) 05/02/23 13:57 Urine pH 8 (5-7) H 05/02/23 13:57 Ur Specific [place] 1.010 (1.005-1.030) 05/02/23 13:57 Urine Protein Neg (Negative) 05/02/23 13:57 Urine Glucose (UA) Norm (Normal) 05/02/23 13:57 Urine Ketones Negative (Negative) 05/02/23 13:57 Urine Blood Neg (Negative) 05/02/23 13:57 Urine Nitrate Negative (Negative) 05/02/23 13:57 Urine Bilirubin Neg (Negative) 05/02/23 13:57 Prot Sulfosalicylic Acd Negative (Negative) 05/02/23 13:57 Urine Urobilinogen Norm mg/dL (Negative) 05/02/23 13:57 Ur Leukocyte Esterase Negative (Negative) 05/02/23 13:57 All radiology interpretation(s) finalized by discharge Discharge Plan Discharge Patient Disposition: Home Clinical Impression: Weakness, Depression Condition: Stable Prescriptions: No Action (DME) Hospital bed, that folds See Rx Instructions .Route .MEDSUPPLY Qty: 1 0RF Rx Instructions: As directed albuterol sulfate 90 mcg/actuation HFA aerosol inhaler 2 inh INHALATION Q4H PRN (Reason: shortness of breath or wheezing) Qty: 18 5RF hydralazine 25 mg tablet 25 mg PO BID levothyroxine 125 mcg tablet 125 mcg PO DAILY metoprolol tartrate 25 mg tablet 25 mg PO DAILY Discharge Orders: Discharge ED (Routine); Ordered 05/02/23 Ordered By: Alex Romero Referrals: Benjamin Gonzalez MD [Primary Care Provider] - Discharge Diet: Usual diet Discharge Activity: Resume usual activity Patient Instructions: Opioid Safety, Pain Management Activity Restrictions/Additional Instructions: Thank you for choosing [facility] for your healthcare needs today. Please realize this is an emergency room and that we are providing you with a medical screening exam and this may not be complete and all inclusive of all the testing and or work up that you may need to determine your ailment or severity of your illness. It is very important that you follow up as instructed or that you return to the Emergency Department should you have concerns or if your condition changes or worsens in any way. Establish with primary care doctor to assist you in management of your long-term issues and potential admission to the group home Coding Level of Care Code ED Health Care Facility Administrator for Ji Melgar
[2023-05-02 13:18] LABS: Basophils # 0.1 10^3/uL (0.0-0.1); Basophils % 0.4 %; Eosinophils # 0.6 10^3/uL (0.0-0.8); Eosinophils % 4.4 %; Hematocrit 38.9 % (36-47); Lymphocytes # 1.4 10^3/uL (0.8-4.8); Lymphocytes % 10.9 %; Mean Corpuscular HGB Conc 32.6 g/dL (30-55); Mean Corpuscular Hemoglobin 31.5 pg (27-33); Mean Corpuscular Volume 96.5 fl (85-98); Mean Platelet Volume 9.7 fL (7.4-10.4); Monocytes # 1.1 10^3/uL (0.2-0.9); Monocytes % 8.6 %; Neutrophils # 9.39 10^3/uL (1.8-7.7); Neutrophils % 71.2 %; Nucleated Red Blood Cells % 0 %; Platelet Count 457 10^3/cmm (157-399); Red Blood Count 4.03 10^6/uL (3.85-5.65); Red Cell Distribution Width 14.1 % (12.1-15.1); White Blood Count 13.19 10^3/uL (3.29-11.43)
--- NOTE | 2023-05-02 13:19 | PC.NURSE ---
upon triage and ems transport pt states she was accepted at [facility]. per [facility] pt has not been accepted there and if she is discharged they will see if they can admit her but there are no guarantees. pt reports generalized weakness and difficulty completing adl's at home alone. pt witnessed walking in waiting room.
[2023-05-02 13:33] LABS: Alanine Aminotransferase 16 U/L (0-33); Albumin Level 3.4 g/dL (3.5-5.2); Alkaline Phosphatase 99 U/L (35-105); Blood Urea Nitrogen 10 mg/dL (8-23); Calcium 8.6 mg/dL (8.5-10.5); Carbon Dioxide 34 mmol/L (22-29); Chloride 99 mmol/L (98-107); Globulin 2.8 g/dL (1.3-4.6); Glucose 99 mg/dL (65-115); Osmolality Calculated 291 mOsm/kg (285-295); Sodium 141 mmol/L (136-145); Total Bilirubin 0.4 mg/dL (0.15-1.2); Total Protein 6.2 g/dL (6.6-8.7)
--- NOTE | 2023-05-02 13:36 | PC.SOCIAL ---
Patient reports that she would like to go to [facility]. Updated her that [facility] reported that she told them she wanted to go to [facility] the whole time she was there. She said she knows why she said that, because her is buried in that area, but she isn't able to go see him. Therefore, she doesn't care where she goes, but would prefer [facility]. Referral faxed to [facility], but they deny patient. Referral faxed to [facility], [facility], and [facility].
--- NOTE | 2023-05-02 13:36 | PC.PHAR ---
PT STATES SHE ONLY USES HER INHALER. HYDRALAZINE 25 MG, LEVOTHYROXINE 125 MCG, ANDMETOPROLOL TARTRATE 25 MG. WERE ELECTRONICALLY SENT TO [facility] AND HAVE NOT BEEN PICKED UP YET. 05/02/23
[2023-05-02 13:45] LABS: Anion Gap 11.3 (5-19); Aspartate Amino Transferase 15 U/L (0-32); Potassium 3.3 mmol/L (3.5-5.1)
--- NOTE | 2023-05-02 14:02 | PC.SOCIAL ---
Baggage Porter Clarita from [facility] calls and reports they are unable to accept patient @ this time.
[2023-05-02 14:03] VITALS: BP 156/85; PULSE 100; RESP 18; O2SAT 97
[2023-05-02 14:13] LABS: Add Urine Microscopic? NO; Charge for UA Resulting for Rev
[2023-05-02 14:25] LABS: Bilirubin Urine Neg (Negative); Blood Urine Neg (Negative); Glucose Urine UA Norm (Normal); Ketones Urine Negative (Negative); Leukocyte Esterase Urine Negative (Negative); Nitrate Urine Negative (Negative); Protein Urine Neg (Negative); Sulfosalicylic Acid Urine Negative (Negative); Urine Appearance Clear (CLEAR); Urine Color Light yellow (Yellow); Urobilinogen Urine Norm (Negative); pH Urine 8 (5-7)
[2023-05-02] MEDS: potassium chloride oral liq 20 mEq/15 mL UDC 40 MEQ PO (14:33)
[2023-05-02 14:36] VITALS: BP 181/65; PULSE 88; RESP 18; O2SAT 97
--- NOTE | 2023-05-02 15:14 | PC.SOCIAL ---
[facility] declined referral.
--- NOTE | 2023-05-04 04:25 | DCPLANNER ---
Patient show's a PCP Benjamin Gonzalez.
== END 2023-05-02 15:03 | disposition home or self-care (01) ==
PROVIDERS: Emergency Provider Family Medicine; PCP Family Medicine Adult Medicine
DX: R53.1 Weakness (principal); F32.A Depression, unspecified; J44.89 Other specified chronic obstructive pulmonary disease; Z87.891 Personal history of nicotine dependence
CPT/HCPCS: 71045; 80053; 81003; 83735; 85025; 93005; 99285

== ENCOUNTER 2023-05-03 08:45 | Emergency (ER) | payer MEDICARE, SELFPAY ==
[2023-05-03 08:46] VITALS: BP 152/79; PULSE 79; RESP 18; TEMP 36.7; O2SAT 96; BMI 21.0
[2023-05-03 08:51] VITALS: BP 171/106; PULSE 97; O2SAT 94
--- NOTE | 2023-05-03 09:03 | XR_ITS ---
WS: [id number] Portable AP upright chest, 05/03/2023 Clinical Data: dyspnea/cough Comparison: Portable chest, 05/02/2023 Findings: No nodules, masses or effusions are seen. There is a minimal left lower lobe opacity which is increased since yesterday. The heart is normal. The pulmonary vascularity is not increased. No pne umonia or pneumothorax is seen. The aortic arch shows mild calcification. The diaphragms are flattene d. Impression: 1. Minimal left lower lobe opacity which is increased since yesterday which could represent atelectas is and/or pneumonia. 2. Atherosclerosis and hyperinflation.
--- NOTE | 2023-05-03 09:15 | ED_ITS ---
Documented by User: Alex Romero DO 05/08/23 06:24 HPI - SOB/Dyspnea 2 General: Chief Complaint: Shortness of Breath/Dyspnea Stated Complaint: sob Time Seen by Provider: 05/03/23 09:00 Source: patient Mode of arrival: EMS History of Present Illness: HPI Narrative: 72-year-old female who presents to the e mergency room with complaints of shortness of breath and cough. No fever sweats or chills nonproductive cough she has been here multiple times in the last few days. She is distraught and depressed because she had given up her dog she had been to the custodial for a time but then left the custodial. Yesterday she came she was wanting to go back to that particular custodial [place] which is a very short distance from the hospital declined to take her back. Case management has been working on the issue there is a local custodial and [place] that has agreed to take her if she has another mental health evaluation. She is complaining of neck and back pain which is chronic she denies any recent falls. No chest or abdominal pain. No fever sweats or chills. She is on her usual supplemental oxygen. MD elicited complaint: shortness of breath Pertinent past history: COPD Severity: mild Exacerbating factors: nothing Relieving factors: nothing Known history of: COPD Associated symptoms: Reports chest congestion and chest pain; Deny abdominal pain, cough, diaphoresis, dizziness, extremity pain, fever(s), hemoptysis, lightheadedness, myalgias, nausea, orthopnea, palpitations, paresthesias, polydipsia, polyuria, rash, sense of impending doom, syncope or vomiting Review of Systems 2 Const: Denies: fever(s) or diaphoresis Card: Reports: chest pain; Denies: palpitations, lightheadedness, syncope or orthopnea Resp: Reports: chest congestion; Denies: hemoptysis GI: Denies: abdominal pain, nausea or vomiting : Denies: dysuria, urinary frequency or urinary urgency Musc: Denies: extremity pain Skin/Breast: Denies: rash Neuro: Denies: dizziness Endo: Denies: polyuria or polydipsia PFS ED 2 PFSH: Medical History Supplemental oxygen dependent Anxiety 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 attack Goals of care, counseling/discussion Asthma-COPD overlap syndrome Fibromyalgia syndrome MDD (major depressive disorder) Delusional disorder Chronic respiratory failure with hypoxia Panic anxiety syndrome Surgical History History of appendectomy History of hysterectomy History of cholecystectomy Hx of tonsillectomy Family History Other No pertinent family history Social History Smoking and tobacco/nicotine status: former use of tobacco/nicotine Quit status (tobacco/nicotine): has quit using Year quit tobacco: 2015 - 1PPD x 40 Years Alcohol intake: never Substance/Drug Use: never Lives independently: Yes Household members: none Current occupational status: disabled Pets and animals: Yes Pets & animals: dog(s) Do you think of yourself as: Straight/Heterosexual Current gender identity: Female Physical Exam 2 Const: GENERAL APPEARANCE: comfortable ORIENTATION/CONSCIOUSNESS: Yes awake, Yes oriented to person, Yes oriented to place and Yes oriented to time HENMT: COMMON NORMALS: normocephalic, atraumatic and hearing grossly normal bilaterally HEAD & SCALP: normocephalic and atraumatic Resp: COMMON NORMALS: normal respiratory effort, No retractions, No use of accessory muscles and clear to auscultation bilaterally AUSCULTATION: clear to auscultation bilaterally Cardio: COMMON NORMALS: regular rate, regular rhythm and No murmurs present (Cardio) RATE: regular rate RHYTHM: regular rhythm GI: COMMON NORMALS: Soft to palpation and No hepatosplenomegaly present A USCULTATION: Yes normoactive bowel sounds PALPATION: Yes Soft to palpation, No Tenderness to palpation present (GI), No Guarding due to palpation present (GI) and Yes No hepatosplenomegaly present Extremity: COMMON NORMALS: normal to inspection, capillary refill normal, no clubbing, cyanosis or edema, no calf tenderness and no pedal edema Neuro: SENSORIUM/ORIENTATION: Yes oriented to person, Yes oriented to place and Yes oriented to time Skin: COMMON NORMALS: no rashes or lesions noted GENERAL SKIN EXAM: no rashes or lesions noted Course 2 Vital Signs: Vital signs: Vital Signs Temperature 98.1 F 05/03/23 08:46 Pulse Rate 100 05/04/23 15:36 Respiratory Rate 22 H 05/04/23 15:36 Blood Pressure 132/57 05/04/23 17:34 Pulse Oximetry 93 05/04/23 15:36 Oxygen Delivery Me thod Nasal Cannula 05/04/23 15:36 Oxygen Flow Rate 2 05/04/23 15:36 MDM - SOB/Dyspnea Medical Decision Making Patient has been living alone at home she has been here several days in a row she intermittently make comments about suicidality but she has not been anything to advance it. She does need better care she does not have any family members who will intervene on her behalf or even his sister fact 1 family member has been actively sabotaging our attempts to get her into the custodial by calling 1 custodial that case management had been working with an discouraging that custodial from taking her. She will frequently change her perspective on whether or not she wants to harm herself sometimes saying she will other times saying she will not she has said 1 week go to discharge. She is going to hurt herself with we discharge her this has happened multiple times in the past and then later she will change her mind and states she is not going to hurt herself and just wants to leave the the emergency room. I asked Dr. Banda who is on-call to see the patient he agrees that there is multiple social issues going on but feels that she may benefit from admission for her depression. Additionally before we get her placed she will need a repeat full psychiatric exam. She also likely will need to have conservator guardian put in place at some point. Dr. Banda is recommending transfer to geriatric psychiatry. Patient is agreeable to this at this time. Staff is beginning to work on finding appropriate facility to receive for transfer. 05/03/2023 at 18:10, I received report from Dr. Romero the outgoing ER physician. We discussed the patient's initial presentation as wel l as the plan of care. We are currently awaiting acceptance for geriatric psychiatry 05/03/23 at 18: 35-patient was seen and reexamined I advised her that we were currently awaiting acceptance and transfer for geriatric psychiatry patient had a large amount of questions regarding the plan of care and transfer as well as the transfer process and acceptance process I spent approximately 25 minutes in the patient's room discussing the plan of care and providing answers to all of the patient's questions. 05/03/23 at 21: 10 patient is requesting medication for her anxiety and nervousness. I advised the patient that I would provide her with Ativan. Lab Data 05/04/23 12:18 05/03/23 09:40 Labs/Radiology: Laboratory Results WBC 8.10 10^3/uL (3.29-11.43) 05/04/23 12:18 RBC 4.40 10^6/uL (3.85-5.65) 05/04/23 12:18 Hgb 13.70 g/dL (11.27-16.99) 05/04/23 12:18 Hct 42.6 % (36-47) 05/04/23 12:18 MCV 96.8 fl (85-98) 05/04/23 12:18 MCH 31.1 pg (27-33) 05/04/23 12:18 MCHC 32.2 g/dL (30-55) 05/04/23 12:18 RDW 14.2 % (12.1-15.1) 05/04/23 12:18 Plt Count 497 10^3/cmm (157-399) H 05/04/23 12:18 MPV 9.5 fL (7.4-10.4) 05/04/23 12:18 Neut % (Auto) 70.3 % 05/04/23 12:18 Lymph % (Auto) 14.1 % 05/04/23 12:18 [place] % (Auto) 7.3 % 05/04/23 12:18 Eos % (Auto) 4.4 % 05/04/23 12:18 Baso % (Auto) 0.4 % 05/04/23 12:18 Neut # (Auto) 5.70 10^3/uL (1.8-7.7) 05/04/23 12:18 Lymph # (Auto) 1.1 10^3/uL (0.8-4.8) 05/04/23 12:18 [place] # (Auto) 0.6 10^3/uL (0.2-0.9) 05/04/23 12:18 Eos # (Auto) 0.4 10^3/uL (0.0-0.8) 05/04/23 12:18 Baso # (Auto) 0.0 10^3/uL (0.0-0.1) 05/04/23 12:18 Nucleated RBC % (auto) 0 % 05/04/23 12:18 Nucleated RBCs # 0.0 /100WBC 05/04/23 12:18 Sodium 140 mmol/L (136-145) 05/03/23 09:40 Potassium 4.4 mmol/L (3.5-5.1) 05/03/23 09:40 Chloride 101 mmol/L (98-107) 05/03/23 09:40 Carbon Dioxide 30 mmol/L (22-29) H 05/03/23 09:40 Anion Gap 13.4 (5-19) 05/03/23 09:40 BUN 10 mg/dL (8-23) 05/03/23 09:40 Creatinine 0.4 mg/dL (0.5-0.9) L 05/03/23 09:40 GFR Calculation Not Reportable 05/03/23 09:40 Glucose 117 mg/dL (65-115) H 05/03/23 09:40 Calculated Osmolality 290 mOsm/kg (285-295) 05/03/23 09:40 Calcium 8.4 mg/dL (8.5-10.5) L 05/03/23 09:40 Total Bilirubin 0.5 mg/dL (0.15-1.2) 05/03/23 09:40 AST 18 U/L (0-32) 05/03/23 09:40 ALT 14 U/L (0-33) 05/03/23 09:40 Alkaline Phosphatase 94 U/L (35-105) 05/03/23 09:40 Total Protein 6.8 g/dL (6.6-8.7) 05/03/23 09:40 Albumin 3.4 g/dL (3.5-5.2) L 05/03/23 09:40 Globulin 3.4 g/dL (1.3-4.6) 05/03/23 09:40 Urine Color Yellow (Yellow) 05/03/23 11:28 Urine Appearance Clear (CLEAR) 05/03/23 11:28 Urine pH 8 (5-7) H 05/03/23 11:28 Ur Specific [place] 1.010 (1.005-1.030) 05/03/23 11:28 Urine Protein Neg (Negative) 05/03/23 11:28 Urine Glucose (UA) Norm (Normal) 05/03/23 11:28 Urine Ketones Negative (Negative) 05/03/23 11:28 Urine Blood Neg (Negative) 05/03/23 11:28 Urine Nitrate Negative (Negative) 05/03/23 11:28 Urine Bilirubin Neg (Negative) 05/03/23 11:28 Urine Urobilinogen Norm mg/dL (Negative) 05/03/23 11:28 Ur Leukocyte Esterase Negative (Negative) 05/03/23 11:28 Salicylates < 0.3 mg/dL (3-10) L 05/03/23 09:40 Urine Opiates Screen Negative ng/mL (Negative) 05/03/23 11:28 Acetaminophen < 5.0 ug/mL (10-30) L 05/03/23 09:40 Ur Barbiturates Screen Negative ng/mL (Negative) 05/03/23 11:28 Ur Phencyclidine Scrn Negative ng/mL (Negative) 05/03/23 11:28 Ur Amphetamines Screen Negative ng/mL (Negative) 05/03/23 11:28 U Benzodiazepines Scrn Positive ng/mL (Negative) H 05/03/23 11:28 Urine Cocaine Screen Negative ng/mL (Negative) 05/03/23 11:28 U Marijuana (THC) Screen Negative ng/mL (Negative) 05/03/23 11:28 Ethyl Alcohol < 10 mg/dL (0-10) 05/03/23 09:40 Influenza Type A Ag negative (Negative) 05/03/23 11:18 Influenza Type B Ag negative (Negative) 05/03/23 11:18 RSV Antigen Negative (Negative) 05/03/23 11:18 SARS-CoV-2 Ag (Rapid) negative (Negative) 05/03/23 11:18 Discharge Plan Discharge Patient Disposition: Xfer Psychiatric Hosp Condition: Stable Referrals: Benjamin Gonzalez MD [Primary Care Provider] - Sign Out Sign Out Data: Patient Sign Out occurred on 05/04/23 at 06:41. Patient's care was discussed, and care was transferred from Sorin Ivring MD to Alex Romero DO. Coding Level of Care Code ED Geospatial Technician for Chg Fwd Documented by User: Sorin Irving MD 05/04/23 06:12 HPI - SOB/Dyspnea 2 General: Chief Complaint: Shortness of Breath/Dyspnea Stated Complaint: sob Time Seen by Provider: 05/03/23 09:00 PFSH ED 2 PFSH: Medical History Supplemental oxygen dependent Anxiety 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 attack Goals of care, counseling/discussion Asthma-COPD overlap syndrome Fibromyalgia syndrome MDD (major depressive disorder) Delusional disorder Chronic respiratory failure with hypoxia Panic anxiety syndrome Surgical History History of appendectomy History of hysterectomy History of cholecystectomy Hx of tonsillectomy Family History Other No pertinent family history Social History Smoking and tobacco/nicotine status: former use of tobacco/nicotine Quit status (tobacco/nicotine): has quit using Year quit tobacco: 2015 - 1PPD x 40 Years Alcohol intake: never Substance/Drug Use: never Lives independently: Yes Household members: none Current occupational status: disabled Pets and animals: Yes Pets & animals: dog(s) Do you think of yourself as: Straight/Heterosexual Current gender identity: Female Course 2 Vital Signs: Vital signs: Vital Signs Temperature 98.1 F 05/03/23 08:46 Pulse Rate 100 05/04/23 15:36 Respiratory Rate 22 H 05/04/23 15:36 Blood Pressure 132/57 05/04/23 17:34 Pulse Oximetry 93 05/04/23 15:36 Oxygen Delivery Me thod Nasal Cannula 05/04/23 15:36 Oxygen Flow Rate 2 05/04/23 15:36 MDM - SOB/Dyspnea Medical Decision Making 05/03/2023 at 18:10, I received report from Dr. Romero the outgoing ER physician. We discussed the patient's initial presentation as well as the plan of care. We are currently awaiting acceptance for geriatric psychiatry. 05/03/23 at 18: 35-patient was seen and reexamined I advised her that we were currently awaiting acceptance and transfer for geriatric psychiatry patient had a large amount of questions regarding the plan of care and transfer as well as the transfer process and acceptance process I spent approximately 25 minutes in the patient's room discussing the plan of care and providing answers to all of the patient's questions. 05/03/23 at 21: 10 patient is requesting medication for her anxiety and nervousness. I advised the patient that I would provide her with Ativan. Lab Data 05/04/23 12:18 05/03/23 09:40 Labs/Radiology: Laboratory Results WBC 8.10 10^3/uL (3.29-11.43) 05/04/23 12:18 RBC 4.40 10^6/uL (3.85-5.65) 05/04/23 12:18 Hgb 13.70 g/dL (11.27-16.99) 05/04/23 12:18 Hct 42.6 % (36-47) 05/04/23 12:18 MCV 96.8 fl (85-98) 05/04/23 12:18 MCH 31.1 pg (27-33) 05/04/23 12:18 MCHC 32.2 g/dL (30-55) 05/04/23 12:18 RDW 14.2 % (12.1-15.1) 05/04/23 12:18 Plt Count 497 10^3/cmm (157-399) H 05/04/23 12:18 MPV 9.5 fL (7.4-10.4) 05/04/23 12:18 Neut % (Auto) 70.3 % 05/04/23 12:18 Lymph % (Auto) 14.1 % 05/04/23 12:18 [place] % (Auto) 7.3 % 05/04/23 12:18 Eos % (Auto) 4.4 % 05/04/23 12:18 Baso % (Auto) 0.4 % 05/04/23 12:18 Neut # (Auto) 5.70 10^3/uL (1.8-7.7) 05/04/23 12:18 Lymph # (Auto) 1.1 10^3/uL (0.8-4.8) 05/04/23 12:18 [place] # (Auto) 0.6 10^3/uL (0.2-0.9) 05/04/23 12:18 Eos # (Auto) 0.4 10^3/uL (0.0-0.8) 05/04/23 12:18 Baso # (Auto) 0.0 10^3/uL (0.0-0.1) 05/04/23 12:18 Nucleated RBC % (auto) 0 % 05/04/23 12:18 Nucleated RBCs # 0.0 /100WBC 05/04/23 12:18 Sodium 140 mmol/L (136-145) 05/03/23 09:40 Potassium 4.4 mmol/L (3.5-5.1) 05/03/23 09:40 Chloride 101 mmol/L (98-107) 05/03/23 09:40 Carbon Dioxide 30 mmol/L (22-29) H 05/03/23 09:40 Anion Gap 13.4 (5-19) 05/03/23 09:40 BUN 10 mg/dL (8-23) 05/03/23 09:40 Creatinine 0.4 mg/dL (0.5-0.9) L 05/03/23 09:40 GFR Calculation Not Reportable 05/03/23 09:40 Glucose 117 mg/dL (65-115) H 05/03/23 09:40 Calculated Osmolality 290 mOsm/kg (285-295) 05/03/23 09:40 Calcium 8.4 mg/dL (8.5-10.5) L 05/03/23 09:40 Total Bilirubin 0.5 mg/dL (0.15-1.2) 05/03/23 09:40 AST 18 U/L (0-32) 05/03/23 09:40 ALT 14 U/L (0-33) 05/03/23 09:40 Alkaline Phosphatase 94 U/L (35-105) 05/03/23 09:40 Total Protein 6.8 g/dL (6.6-8.7) 05/03/23 09:40 Albumin 3.4 g/dL (3.5-5.2) L 05/03/23 09:40 Globulin 3.4 g/dL (1.3-4.6) 05/03/23 09:40 Urine Color Yellow (Yellow) 05/03/23 11:28 Urine Appearance Clear (CLEAR) 05/03/23 11:28 Urine pH 8 (5-7) H 05/03/23 11:28 Ur Specific [place] 1.010 (1.005-1.030) 05/03/23 11:28 Urine Protein Neg (Negative) 05/03/23 11:28 Urine Glucose (UA) Norm (Normal) 05/03/23 11:28 Urine Ketones Negative (Negative) 05/03/23 11:28 Urine Blood Neg (Negative) 05/03/23 11:28 Urine Nitrate Negative (Negative) 05/03/23 11:28 Urine Bilirubin Neg (Negative) 05/03/23 11:28 Urine Urobilinogen Norm mg/dL (Negative) 05/03/23 11:28 Ur Leukocyte Esterase Negative (Negative) 05/03/23 11:28 Salicylates < 0.3 mg/dL (3-10) L 05/03/23 09:40 Urine Opiates Screen Negative ng/mL (Negative) 05/03/23 11:28 Acetaminophen < 5.0 ug/mL (10-30) L 05/03/23 09:40 Ur Barbiturates Screen Negative ng/mL (Negative) 05/03/23 11:28 Ur Phencyclidine Scrn Negative ng/mL (Negative) 05/03/23 11:28 Ur Amphetamines Screen Negative ng/mL (Negative) 05/03/23 11:28 U Benzodiazepines Scrn Positive ng/mL (Negative) H 05/03/23 11:28 Urine Cocaine Screen Negative ng/mL (Negative) 05/03/23 11:28 U Marijuana (THC) Screen Negative ng/mL (Negative) 05/03/23 11:28 Ethyl Alcohol < 10 mg/dL (0-10) 05/03/23 09:40 Influenza Type A Ag negative (Negative) 05/03/23 11:18 Influenza Type B Ag negative (Negative) 05/03/23 11:18 RSV Antigen Negative (Negative) 05/03/23 11:18 SARS-CoV-2 Ag (Rapid) negative (Negative) 05/03/23 11:18 All radiology interpretation(s) finalized by discharge Discharge Plan Discharge Patient Disposition: Xfer Psychiatric Hosp Condition: Stable Referrals: Benjamin Gonzalez MD [Primary Care Provider] - Sign Out Sign Out Data: Patient Sign Out occurred on 05/04/23 at 06:41. Patient's care was discussed, and care was transferred from Sorin Irving MD to Alex Romero DO. Coding Level of Care Code ED Geospatial Technician for Ji Melgar
[2023-05-03] MEDS: ibuprofen 200 mg Tablet 400 MG PO (09:19)
[2023-05-03 09:49] LABS: Basophils # 0.1 10^3/uL (0.0-0.1); Basophils % 0.4 %; Eosinophils # 0.5 10^3/uL (0.0-0.8); Eosinophils % 4.2 %; Hematocrit 35.7 % (36-47); Lymphocytes # 1.3 10^3/uL (0.8-4.8); Lymphocytes % 10.6 %; Mean Corpuscular HGB Conc 32.8 g/dL (30-55); Mean Corpuscular Hemoglobin 31.2 pg (27-33); Mean Corpuscular Volume 95.2 fl (85-98); Mean Platelet Volume 9.4 fL (7.4-10.4); Monocytes % 8.3 %; Neutrophils # 8.63 10^3/uL (1.8-7.7); Neutrophils % 72.4 %; Nucleated Red Blood Cells % 0 %; Platelet Count 485 10^3/cmm (157-399); Red Blood Count 3.75 10^6/uL (3.85-5.65); Red Cell Distribution Width 14.1 % (12.1-15.1); White Blood Count 11.92 10^3/uL (3.29-11.43)
[2023-05-03 10:08] LABS: Albumin Level 3.4 g/dL (3.5-5.2); Alkaline Phosphatase 94 U/L (35-105); Anion Gap 13.4 (5-19); Aspartate Amino Transferase 18 U/L (0-32); Blood Urea Nitrogen 10 mg/dL (8-23); Calcium 8.4 mg/dL (8.5-10.5); Carbon Dioxide 30 mmol/L (22-29); Chloride 101 mmol/L (98-107); Globulin 3.4 g/dL (1.3-4.6); Glucose 117 mg/dL (65-115); Osmolality Calculated 290 mOsm/kg (285-295); Potassium 4.4 mmol/L (3.5-5.1); Sodium 140 mmol/L (136-145); Total Bilirubin 0.5 mg/dL (0.15-1.2); Total Protein 6.8 g/dL (6.6-8.7)
--- NOTE | 2023-05-03 10:09 | PC.NURSE ---
Patient has been constantly on the call light or yelling help from the room. Multiple staff have answered the call light and went to the room to assist the patient. Patient keeps asking to go to the long-term or to be sent home.
[2023-05-03 10:20] LABS: Alanine Aminotransferase 14 U/L (0-33)
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
[2023-05-03 11:37] LABS: Add Urine Microscopic? NO; Charge for UA Resulting for Rev
[2023-05-03 11:45] LABS: Influenza A by IFA negative (Negative); Influenza B by IFA negative (Negative)
[2023-05-03 11:46] LABS: SARS Covid-2 Antigen negative (Negative)
[2023-05-03 11:47] LABS: Urine Appearance Clear (CLEAR); Urine Color Yellow (Yellow); pH Urine 8 (5-7)
[2023-05-03 11:48] LABS: Bilirubin Urine Neg (Negative); Blood Urine Neg (Negative); Glucose Urine UA Norm (Normal); Ketones Urine Negative (Negative); Leukocyte Esterase Urine Negative (Negative); Nitrate Urine Negative (Negative); Protein Urine Neg (Negative); Urobilinogen Urine Norm (Negative)
[2023-05-03 11:49] LABS: Amphetamines Screen Urine Negative (Negative); Barbiturates Screen Urine Negative (Negative); Benzodiazepines Screen Urine Positive (Negative); Cocaine Screen Urine Negative (Negative); Opiate Screen Urine Negative (Negative); PCP Screen Urine Negative (Negative); THC Screen Urine Negative (Negative)
[2023-05-03 11:51] LABS: Acetaminophen < 5.0 ug/mL (10-30); Alcohol Level < 10 mg/dL (0-10); Salicylate < 0.3 mg/dL (3-10)
[2023-05-03 11:51] LABS: RSV Transfer Patient (ED) Negative (Negative)
[2023-05-03] MEDS: LORazepam 2 mg Tablet PO (12:08)
[2023-05-03 12:51] VITALS: BP 173/84; PULSE 92; O2SAT 94
[2023-05-03] MEDS: metoprolol succinate ER (24 HR) 25 mg Tablet PO (18:16)
[2023-05-03] MEDS: hyDRALAzine 25 mg Tablet PO (18:16)
[2023-05-03] MEDS: acetaminophen 325 mg Tablet 650 MG PO ×2 (18:18→22:43)
--- NOTE | 2023-05-03 18:35 | PC.NURSE ---
Patient refused to have an IV placed, 2 nurses attempted. Patient then stated she does not want IV antibiotics so the physician is ordering PO antibiotics.
[2023-05-03 18:48] VITALS: BP 173/84; PULSE 93; O2SAT 94
[2023-05-03] MEDS: levoFLOXacin 750 mg Tablet PO (18:59)
[2023-05-03] MEDS: LORazepam 1 mg Tablet 2 MG PO (21:13)
[2023-05-03 21:15] VITALS: BP 127/68; PULSE 81; O2SAT 97
[2023-05-03 22:44] VITALS: PULSE 84; O2SAT 93
[2023-05-04] VITALS (8 sets, daily range): BP systolic 132–139; BP diastolic 57–73; PULSE 80–100; RESP 16–22; O2SAT 89–95
--- NOTE | 2023-05-04 00:05 | PC.NURSE ---
Patient yelled at nursing staff that bedding was soiled. When asked why patient was yelling instead of using her call light to get up to a bedside commode, patient stated that she did not have her call light and decided to wet the bed. Her call light was found to be beside her and within reach. Patient was cleaned up, put in fresh briefs, bedding was changed, and patient was educated to use her call light if she needed to get up to use the bedside commode. Patient verbalized understanding. Patient left resting in bed, 2 side rails up, call light within reach.
--- NOTE | 2023-05-04 02:34 | ECG_ITS ---
[facility] Test Date: 2023-05-04 Pat Name: Socorro Montes De Oca Department: Room: Gender: Female Application Security Specialist: : [id number] Requested By: Alex Scales Order Number: [id number] Octavio MD: Jamaal Drummond M.D. Measurements Intervals [place] Rate: 77 P: 112 WA: 136 QRS: 6 QRSD: 76 T: 95 QT: 396 QTc: 450 Interpretive Statements SINUS RHYTHM WITH OCCASIONAL SUPRAVENTRICULAR PREMATURE COMPLEXES POSSIBLE RIGHT VENTRICULAR CONDUCTION DELAY [RSR (QR) IN V1/V2] ABNORMAL QRS-T ANGLE [QRS-T AXIS DIFFERENCE > 60] Compared to ECG 05/02/2023 12:54:35 No significant changes Electronically Signed On 05-04-2023 10:03:[address]PERVIS[address] by Jamaal Drummond M.D. [email or web address]
[2023-05-04] MEDS: levothyroxine 125 mcg Tablet PO (05:53)
[2023-05-04] MEDS: LORazepam 1 mg Tablet PO ×2 (06:10→10:15)
[2023-05-04] MEDS: levoFLOXacin 500 mg Tablet PO (09:20)
--- NOTE | 2023-05-04 12:05 | XR_ITS ---
WS: [id number] Portable AP semiupright chest, 05/04/2023 Clinical Data: dyspnea/cough Comparison: Portable chest, 05/03/2023 Findings: No nodules, masses or effusions are seen. Yesterday's left lower lobe opacity has cleared. The heart is normal. The pulmonary vascularity is not increased. No pneumonia or pneumothorax is seen . The aortic arch and descending thoracic aorta show minimal calcification. The diaphragms are flatte ivy. Impression: 1. Clearing of left lower lobe opacity. 2. Atherosclerosis and hyperinflation.
[2023-05-04 12:39] LABS: Basophils % 0.4 %; Eosinophils # 0.4 10^3/uL (0.0-0.8); Eosinophils % 4.4 %; Hematocrit 42.6 % (36-47); Lymphocytes # 1.1 10^3/uL (0.8-4.8); Lymphocytes % 14.1 %; Mean Corpuscular HGB Conc 32.2 g/dL (30-55); Mean Corpuscular Hemoglobin 31.1 pg (27-33); Mean Corpuscular Volume 96.8 fl (85-98); Mean Platelet Volume 9.5 fL (7.4-10.4); Monocytes # 0.6 10^3/uL (0.2-0.9); Monocytes % 7.3 %; Neutrophils % 70.3 %; Nucleated Red Blood Cells % 0 %; Platelet Count 497 10^3/cmm (157-399); Red Cell Distribution Width 14.2 % (12.1-15.1)
[2023-05-04] MEDS: ipratropium-albuterol 3 mL Neb INHALATION (12:51)
--- NOTE | 2023-05-04 13:48 | PC.SOCIAL ---
Referral faxed to [facility], [facility]. Spoke with [facility], they have one female inna-psych bed available. He does ask if she is on oxygen. Explained that she is, but this is chronic and not new to her. He states that he will have to confirm with a bus driver supervisor and call back. Number provided. Spoke with Jaskaran at [facility]. He states that the charge nurse is currently with doctor. CM will try to follow up later.
--- NOTE | 2023-05-04 14:30 | PC.SOCIAL ---
Spoke with Mercedes Mcdowell at [facility] in [place], she states that as long as patient could participate in groups for 5-7 hours per day and perform own ADLs, they could consider. Referral faxed at this time. They do not have a bed available today, but anticipate several tomorrow and could admit over the weekend if appropriate for their facility.
--- NOTE | 2023-05-04 14:37 | PC.SOCIAL ---
Referral pending at when beds become available: [facility] in [place]- [phone] [facility] in [place] [phone] [facility]: [phone] [facility] [place]: [phone] [facility] [phone] [place] [phone] [facility] [phone]
[2023-05-04] MEDS: acetaminophen 325 mg Tablet 650 MG PO (15:35)
--- NOTE | 2023-05-04 19:09 | P.NPUPN_ITS ---
Subjective NPU 2 Subjective: 72-year-old female with a history of dep ression who continues to require inpatient hospitalization for depression. The patient had reported a good response on Prozac in the past but was agreeable to a trial of Lexapro. She had continued to endorse hopelessness. She had reported that she was unable to manage her own care at home. She had continued to report a lack of family support. She had requested that she be sent to a skilled nursing near [place] where her had been buried before. She reported continued sleep continuity disruption. She had reported being more easily frustrated. She had reported struggles with completion of activities of daily living. Mental Status Exam 2 MSE Comments: She is at thin white female who looks older than her stated age with a disheveled appearance and intense eye contact. Her gait was not tested. There was significant evidence of moderate to severe psychomotor retardation. She was alert and oriented to year, month, place and year. Her speech was normal in regards to rate rhythm and prosody. Her mood was described as depressed. Her affect was restricted today. Her attention span was fair. There was no clear evidence of overt delusions. She did not appear to be responding to internal stimuli. She denied any auditory or visual hallucinations. She endorsed suicidal ideation and was not able to contract for safety. She minimized any homicidal ideation. Her insight is poor. Her judgment is impaired. Her impulse control appeared limited. Vitals/I&O/Wt Last Vital Signs Temp 98.1 F 05/03/23 08:46 Pulse 100 05/04/23 15:36 Resp 22 H 05/04/23 15:36 BP 132/57 05/04/23 17:34 Pulse Ox 93 05/04/23 15:36 O2 Del Method Nasal Cannula 05/04/23 15:36 O2 Flow Rate 2 05/04/23 15:36 Weight last 48 hrs Weight 52.163 kg Data NPU 05/04/23 12:18 05/03/23 09:40 A&P Assessment and plan (1) MDD (major depressive disorder): Qualifiers: Active/Remission status: currently active Major depression episode severity: moderate Major depression recurrence: recurrent Qualified Code(s): F 33.1 - Major depressive disorder, recurrent, moderate Plan 72-year-old female with a past history of major depressive disorder who presents to the emergency department with suicidal ideation with an inability to contract for safety. She has continued to decline in regards to self-care and geriatric psychiatric hospitalization is necessary. She may be a candidate for ECT to prevent further decline. 1. Continue Lexapro 10mg daily with addition of seroquel 50mg adjunctively to target depression. (Patient reported previous adequate response on SSRI) 2. Level 2 to be completed. -may require guardianship. Attestations NPU 2 Medical Necessity Statement*: inpatient geriatric hospitalization is medically necessary at this time. Coding Level of Care Code Acute Code for g Fwd Diagnoses Moderate episode of recurrent major depressive disorder F33.1 Active/Remission status: currently active Major depression episode severity: moderate Major depression recurrence: recurrent
== END 2023-05-04 17:51 ==
PROVIDERS: Emergency Provider Family Medicine; PCP Family Medicine Adult Medicine
DX: R06.02 Shortness of breath (principal); R05.9 Cough, unspecified; J44.89 Other specified chronic obstructive pulmonary disease; Z87.891 Personal history of nicotine dependence
CPT/HCPCS: 71045; 80053; 80306; 80307; 81003; 85025; 87426; 87804; 87899; 93005; 94640; 99285